=== PATIENT | female | born 1940 | race Caucasian/White ===

== ENCOUNTER 2017-01-18 08:05 | Outpatient (CLI) | payer MEDICARE, OTHER ==
[2017-01-18] VITALS (8 sets, daily range): BP systolic 111–178; BP diastolic 53–63
[~2017-01-18] VITALS: Ht 162.6 cm; Wt 45.4 kg
[~2017-01-18 08:05] MED LIST: DOCU50CA6 PO; GABA-586 PO; GLIM1TAB PO; LISI1TAB5 PO; OMEG1CAP2 PO; OMEP40CA5 PO; SIMV40TA3 PO; SITA100T PO; SUCR1TAB PO; TRAM-48 PO
[2017-01-18] MEDS ORDERED: CITA10TA4 PO (08:28)
[2017-01-18] MEDS ORDERED: ERGO2000 PO (08:28)
[2017-01-18] MEDS ORDERED: ALEN70TA5 PO (08:28)
[2017-01-18] MEDS ORDERED: ATORVASTATIN CA80 MG PO (08:28)
[2017-01-18] MEDS ORDERED: CETI10TA16 PO (08:28)
[2017-01-18] MEDS ORDERED: GUAI600T79 PO (08:28)
[2017-01-18] MEDS ORDERED: GLIM1TAB PO (08:28)
[2017-01-18] MEDS ORDERED: BUDE10.2 IH (08:28)
[2017-01-18] MEDS ORDERED: PROAIR RESPICL90 MCG IH (08:28)
[2017-01-18] MEDS ORDERED: BREO ELLIPTA 11 EACH IH (08:28)
[2017-01-18] MEDS ORDERED: HYDR10SY16 PO (08:28)
[2017-01-18] MEDS ORDERED: SITA100T PO (08:28)
[2017-01-18] MEDS ORDERED: CLOP75TA PO (08:28)
[2017-01-18 08:53] LABS: BASO # 0.1 x10^3/uL (0.0-0.2); BASO % 1 % (0-3); EOS % 3 % (0-3); HEMATOCRIT 37.8 % (36.0-47.0); HEMOGLOBIN 12.5 g/dL (12.0-15.5); LYMPH # 2.2 x10^3/uL (1.0-4.8); LYMPH % 33 % (24-48); MEAN CORPUSCULAR HEMOGLOBIN 32 pg (25-35); MEAN CORPUSCULAR HGB CONC 33 g/dL (31-37); MEAN CORPUSCULAR VOLUME 96 fL (79-100); MONO % 9 % (0-9); NEUT % 54 % (31-73); PLATELET COUNT 198 x10^3/uL (140-400); RED BLOOD COUNT 3.94 x10^6/uL (3.50-5.40); RED CELL DISTRIBUTION WIDTH 14.3 % (11.5-14.5); WHITE BLOOD COUNT 6.8 x10^3/uL (4.0-11.0)
[2017-01-18 09:37] LABS: INR 0.9 (0.8-1.1); PROTHROMBIN TIME PATIENT 11.9 SEC (11.7-14.0)
[2017-01-18] MEDS ORDERED: LIDOCAINE 1% / SOD BICARB 8.4% 20 ML VIAL. IJ ONE (10:00)
[2017-01-18] MEDS ORDERED: fentaNYL PF VIAL 100 MCG/2 ML VIAL IV ONE (10:00)
[2017-01-18] MEDS ORDERED: MIDAZOLAM HCL/PF 5 MG/5 ML VIAL. IV ONE (10:00)
--- NOTE | 2017-01-18 12:36 | RAD ---
CT-guided bone marrow biopsy. 01/18/2017 12:33 PM Indication: CTBXBM/MGUS ABD PAIN Discussion: The risks and benefits of the procedure, including but not limited to, bleeding and infection were discussed patient. Informed consent was obtained. The patient was brought to the CT scanner and placed in the prone position. A timeout procedure was performed. Rn Access CT imaging of the pelvis demonstrated left ilium amenable to bone marrow biopsy. The overlying soft tissues were prepped and draped using maximum sterile barrier technique. 1% lidocaine without epinephrine was administered for local anesthesia. Under intermittent CT guidance, an OncControl needle was advanced into the bone marrow of the left iliac crest. 2 Aspirates and 1 core biopsy samples were obtained. Samples were delivered to pathology was present at the time of procedure. The needle was removed and manual pressure held to achieve hemostasis. No immediate complications were identified. The procedure was performed under conscious sedation including continuous cardiopulmonary monitoring via dedicated sedation nurse. Sedation time: 15 minutes Impression: Successful CT-guided bone marrow biopsy of the left iliac crest . PQRS Compliance Statement: One or more of the following individualized dose reduction techniques were utilized for this examination: 1. Automated exposure control 2. Adjustment of the mA and/or kV according to patient size 3. Use of iterative reconstruction technique
== END 2017-01-18 11:35 | disposition home or self-care (01) ==
LOC: INTRAD 08:05
PROVIDERS: ATTEND Internal Medicine Hematology & Oncology
DX: E31.20 Multiple endocrine neoplasia [MEN] syndrome, unspecified (principal); Z79.01 Long term (current) use of anticoagulants; E78.00 Pure hypercholesterolemia, unspecified; I73.9 Peripheral vascular disease, unspecified; I10 Essential (primary) hypertension; J44.9 Chronic obstructive pulmonary disease, unspecified; K21.9 Gastro-esophageal reflux disease without esophagitis; F32.9 Major depressive disorder, single episode, unspecified; F17.200 Nicotine dependence, unspecified, uncomplicated; E11.9 Type 2 diabetes mellitus without complications; Z88.8 Allergy status to other drugs, medicaments and biological substances; Z88.1 Allergy status to other antibiotic agents; Z91.041 Radiographic dye allergy status
CPT/HCPCS: 36415; 38221; 77012; 85025; 85610; 88184; 88185; 88237; G0364; J2250; J3010; 99152

== ENCOUNTER → 2017-01-19 | Outpatient (CLI) | payer MEDICARE, OTHER ==
[2017-01-18 11:10] VITALS: BP 129/63
[~2017-01-19] MED LIST changes: +ALEN70TA5 PO; +ATORVASTATIN CA80 MG PO; +BREO ELLIPTA 11 EACH IH; +BUDE10.2 IH; +CETI10TA16 PO; +CITA10TA4 PO; +CLOP75TA PO; +ERGO2000 PO; +GUAI600T79 PO; +HYDR10SY16 PO; +LIDOCAINE 1% / SOD BICARB 8.4% 20 ML VIAL. IJ ONE; +LIDOCAINE 1% Multi-Dose 20 ML VIAL. ONE; +PROAIR RESPICL90 MCG IH
--- NOTE | 2017-01-19 13:06 | RAD ---
Indication multiple myeloma. Axial images through the chest abdomen and pelvis were obtained. The study is limited. No IV or gastrointestinal contrast was administered. No prior CT imaging of the chest abdomen or pelvis is available. CT chest: Findings Changes of a right mastectomy are noted. There is coronary artery calcification. The thoracic aorta appears unremarkable. There is no significant hilar or mediastinal adenopathy. There is a opacity in the right upper lobe, probably reflecting scar, image 16 series 3. Follow-up imaging establishing stability should be considered. A dominant soft tissue mass in either lung or acute finding in the chest is not seen. CT abdomen and pelvis: Findings. The liver and spleen appear unremarkable. The gallbladder appears grossly normal. No adrenal anomaly is seen. There are low-density masses associated with the left kidney compatible with cysts. The pancreas appears unremarkable. There is no significant central or retroperitoneal adenopathy. In the pelvis no focal mass or inflammatory process is seen. IMPRESSION: No acute or definite significant finding seen in the chest, abdomen or pelvis. Parenchymal opacity in the right upper lobe. Follow-up imaging along the lines of the Fleischner criteria should be considered. Nodules detected incidentally at non-screening CT Nodule size (mm) less than or equal to 4 Low Risk patients- no follow-up needed High Risk patients- follow-up at 12 months and if no change, no further imaging needed. Nodule size > 4-6 mm Low risk patients- follow- up at 12 months and if no change, no further imaging needed High risk patients- initial follow-up CT at 6-12 months and then at 18-24 months if no change. Nodule Size > 6-8 mm Low risk patients- initial follow-up CT at 6-12 months and then at 18-24 months if no change. High risk patients- initial follow- up CT at 3-6 months and then at 9-12 months if no change, Nodule Size >8 mm Either low or high risk patients: Follow-up CT at around 3, 9 and [address], PET, and/or biopsy Note: newly detected indeterminate nodule in person 35 years of age or older. Low risk patients- minimal or absent history of smoking and/or other known risk factors. High risk patients- history of smoking or of other known risk factors. PQRS Compliance Statement: One or more of the following individualized dose reduction techniques were utilized for this examination: 1. Automated exposure control 2. Adjustment of the mA and/or kV according to patient size 3. Use of iterative reconstruction technique
--- NOTE | 2017-01-19 15:33 | RAD ---
Metastatic skeletal survey, 01/19/2017: History: Monoclonal gammopathy, weight loss, abdominal pain Multiple views of the bony skeleton were obtained in the following findings delineated: 1. An AP view of the chest reveals no fracture or destructive bony lesion. There is aortic calcific plaquing. A granulomatous type calcification is present in the left chest. Surgical clips are projected over the GE junction region. 2. AP and lateral views of the cervical, thoracic and lumbar spine reveal scattered marginal spurs. There are moderate degenerative changes involving the facet joints in the lower lumbar spine. There is a mild lumbar scoliosis. No fracture or destructive bony lesion is seen. 3. A lateral view of the skull demonstrates several small calvarial lucencies. 4. AP views of both humeri and forearms reveal no fracture or destructive bony lesion. 5. An AP view of the pelvis shows no abnormality. 6. AP views of both femurs and lower legs demonstrate no fracture or destructive bony lesion. IMPRESSION: 1. Several small calvarial lucencies suggesting early myelomatous lesions versus venous lakes. 2. No other evidence of multiple myeloma or metastatic disease. 3. Scattered degenerative changes.
== END | disposition home or self-care (01) ==
LOC: CT 08:51
PROVIDERS: ATTEND Internal Medicine Hematology & Oncology
DX: D47.2 Monoclonal gammopathy (principal); C90.00 Multiple myeloma not having achieved remission; R63.4 Abnormal weight loss; R91.8 Other nonspecific abnormal finding of lung field; Z87.891 Personal history of nicotine dependence
CPT/HCPCS: 71250; 74176; 77075

== ENCOUNTER → 2017-05-30 | Outpatient (CLI) | payer MEDICARE, OTHER | END | disposition home or self-care (01) | LOC: CT 09:22 | DX: N63.20 Unspecified lump in the left breast, unspecified quadrant (principal); I70.0 Atherosclerosis of aorta; N28.1 Cyst of kidney, acquired; K86.1 Other chronic pancreatitis; Z90.11 Acquired absence of right breast and nipple | CPT/HCPCS: 71250 ==

== ENCOUNTER → 2017-06-09 | Outpatient (CLI) | payer MEDICARE, OTHER ==
[2017-06-09] MEDS: GADOBUTROL 7.5 MMOL/7.5 ML VIAL IV (11:08)
== END | disposition home or self-care (01) ==
LOC: MRI 09:41
DX: M48.04 Spinal stenosis, thoracic region (principal); Z85.3 Personal history of malignant neoplasm of breast
CPT/HCPCS: 72157; A9585

== ENCOUNTER → 2017-07-10 | Outpatient (CLI) | payer MEDICARE, OTHER | END | disposition home or self-care (01) | LOC: US 08:49 | DX: N63.31 Unspecified lump in axillary tail of the right breast (principal); D76.3 Other histiocytosis syndromes; Z90.710 Acquired absence of both cervix and uterus; Z98.890 Other specified postprocedural states; I10 Essential (primary) hypertension; F17.200 Nicotine dependence, unspecified, uncomplicated; Z91.041 Radiographic dye allergy status | CPT/HCPCS: 19081; 38505; 76942; 88305 ==

== ENCOUNTER → 2017-12-29 | Outpatient (CLI) | payer MEDICARE, OTHER ==
[2017-01-18 11:10] VITALS: BP 129/63
[~2017-12-29] MED LIST changes: -LIDOCAINE 1% / SOD BICARB 8.4% 20 ML VIAL. IJ ONE; -LIDOCAINE 1% Multi-Dose 20 ML VIAL. ONE
--- NOTE | 2017-12-29 14:44 | RAD ---
MRI of the thoracic spine without contrast 12/29/2017 CLINICAL HISTORY: Intradural mass seen at T10. Frequent falls. TECHNIQUE: Unenhanced T1-weighted, T2-weighted and inversion recovery sagittal and T1-weighted and T2-weighted axial images of the thoracic spine were obtained. FINDINGS: Comparison study is dated 06/09/2017. Very mild S-shaped curvature of the thoracolumbar spine is seen. Degenerative signal changes are seen involving all of the disks of the thoracic spine. Degenerative signal changes are seen within the marrow surrounding the disks of the mid and lower thoracic spine. No area of abnormal signal intensity is seen involving the thoracic spinal cord. An oval shaped intradural, extramedullary mass is seen within the left posterior lateral aspect of the central spinal canal at the T10 level. This measures 1.4 cm in greatest diameter. It is unchanged since the previous examination. This may represent a meningioma. No additional mass lesion is seen. No area of abnormal signal intensity is seen involving the thoracic spinal cord. Degenerative changes are seen involving the thoracic disc spaces consisting of minimal generalized disc bulges and degenerative changes involving the facet joints. The mass effect at T10 results in moderate to severe narrowing of the far left lateral recess, unchanged. No neural foraminal stenosis is noted. IMPRESSION: Stable MRI appearance of the 1.4 cm intradural extramedullary mass at T10. This likely represents a meningioma. No acute abnormality is seen. Electronically signed by: Christiano Falcon MD (12/29/2017 2:41 PM) [email or web address]
== END | disposition home or self-care (01) ==
LOC: MRI 10:41
PROVIDERS: ATTEND Neurological Surgery
DX: M48.8X4 Other specified spondylopathies, thoracic region (principal); M47.894 Other spondylosis, thoracic region; M43.8X4 Other specified deforming dorsopathies, thoracic region; I10 Essential (primary) hypertension; E11.9 Type 2 diabetes mellitus without complications; E78.00 Pure hypercholesterolemia, unspecified; M19.90 Unspecified osteoarthritis, unspecified site; J44.9 Chronic obstructive pulmonary disease, unspecified; K21.9 Gastro-esophageal reflux disease without esophagitis; Z87.891 Personal history of nicotine dependence
CPT/HCPCS: 72146

== ENCOUNTER → 2018-06-25 | Outpatient (CLI) | payer MEDICARE, OTHER ==
[2017-01-18 11:10] VITALS: BP 129/63
[~2018-06-25] MED LIST changes: -ALEN70TA5 PO; +ALEN70TA60 PO; -GABA-586 PO; +GABA300C18 PO
--- NOTE | 2018-06-25 11:40 | RAD ---
EXAM: Thoracic spine MRI without contrast. HISTORY: Pain. Mass. TECHNIQUE: Multiplanar, multisequence magnetic resonance imaging of the thoracic spine was performed without contrast. Contrast could not be administered due to renal insufficiency at the time of the exam. COMPARISON: 12/29/2017 and 06/09/2017. FINDINGS: There is no significant thoracic scoliosis or listhesis. There is minimal retrolisthesis of C5 on C6. The visualized vertebral bodies are normal in height. No suspicious osseous lesion is seen. There is no acute or subacute fracture. There is been no significant change in the heterogeneous hypointense T2 appearance of intradural extramedullary mass within the left aspect of the thoracic spinal canal at T10. This measures 1.4 cm in maximum dimension and demonstrates enhancement on the prior contrast-enhanced exam dated 06/09/2017. There is stable associated mild deformation of the left aspect of the thoracic spinal cord and effacement of the left lateral recess at this level. No thoracic spinal cord signal abnormality is seen. There is no thoracic disc protrusion. There is minimal to mild facet arthropathy at the mid lower thoracic vertebral levels, contributing to suspected minimal left foraminal stenosis at T10-T11. There is degenerative change involving the cervical spine, not formally assessed on this exam. There is an incidental tiny hiatal hernia. IMPRESSION: 1. No significant change in a 1.4 cm intradural extramedullary mass within the left aspect of the thoracic spinal canal at T10. This effaces the left lateral recess and slightly deforms the left aspect of the spinal cord at this level, without cord signal abnormality. This is better seen on the study dated 06/09/2017, given the presence of intravenous contrast. Contrast could not be administered for the current exam due to renal insufficiency. 2. Mild degenerative change involving the cervical spine, not formally assessed on this exam. 3. Minimal degenerative change involving the mid lower thoracic spine, stable in appearance. Electronically signed by: Felecia Leonard MD (06/25/2018 11:35 AM) [email or web address]
== END | disposition home or self-care (01) ==
LOC: MRI 09:42
PROVIDERS: ATTEND Internal Medicine Hematology & Oncology
DX: M54.6 Pain in thoracic spine (principal); M47.812 Spondylosis without myelopathy or radiculopathy, cervical region; G89.29 Other chronic pain; E78.00 Pure hypercholesterolemia, unspecified; I10 Essential (primary) hypertension; J44.9 Chronic obstructive pulmonary disease, unspecified; K21.9 Gastro-esophageal reflux disease without esophagitis; M19.90 Unspecified osteoarthritis, unspecified site; E11.9 Type 2 diabetes mellitus without complications; Z85.3 Personal history of malignant neoplasm of breast; Z87.891 Personal history of nicotine dependence
CPT/HCPCS: 72146

== ENCOUNTER 2018-12-03 07:29 | Inpatient (IN) | payer MEDICARE, OTHER ==
[2018-12-03] VITALS (12 sets, daily range): BP systolic 106–138; BP diastolic 42–83
[~2018-12-03] VITALS: Ht 162.6 cm; Wt 60.5 kg
[~2018-12-03 07:29] MED LIST changes: +ACET325T9 PO; +ACET500T68 PO; +ALEN70TA6 PO; -ALEN70TA60 PO; +ATOR10TA60 PO; +CALC250T PO; +CARV3.12 PO; +DICL100G18 TP; +FLUT9.9S NS; +FURO-68 PO; +FURO-69 PO; +HYDROmorphone 2 MG/ML VIAL IV PRN; +INSU100C4 SQ; +IPRA3AMP29 NEB; +IV RINGERS,LACTATED 1000ML 1,000 ML IV SCH; +LATA2.5D3 EACHEYE; +LIDO700A21 TP; +LIDOCAINE 1% PF 2 ML VIAL. ID PRN; +LISI2.5T PO; +LOPE2CAP88 PO; +MORPHINE SULFATE 2 MG/ML VIAL. IV PRN; +NAPR-514 PO; +OMEP20CA10 PO; +PHEN20SP MM; +PROCHLORPERAZINE 10 MG/2 ML VIAL. IV PRN; +TRAZ-118 PO; +fentaNYL PF VIAL 100 MCG/2 ML VIAL IV PRN
[2018-12-03] MEDS ORDERED: BUPIVAC MPF-EPI 0.5%-1:200000 30 ML VIAL. ONE (08:00)
[2018-12-03 08:03] LABS: BASO # 0.1 x10^3/uL (0.0-0.2); BASO % 1 % (0-3); EOS # 0.2 x10^3/uL (0.0-0.7); EOS % 2 % (0-3); HEMATOCRIT 34.2 % (36.0-47.0); HEMOGLOBIN 11.5 g/dL (12.0-15.5); LYMPH # 1.7 x10^3/uL (1.0-4.8); LYMPH % 23 % (24-48); MEAN CORPUSCULAR HEMOGLOBIN 31 pg (25-35); MEAN CORPUSCULAR HGB CONC 34 g/dL (31-37); MEAN CORPUSCULAR VOLUME 93 fL (79-100); MONO # 0.8 x10^3/uL (0.0-1.1); MONO % 11 % (0-9); NEUT # 4.6 x10^3/uL (1.8-7.7); NEUT % 63 % (31-73); PLATELET COUNT 221 x10^3/uL (140-400); RED CELL DISTRIBUTION WIDTH 13.1 % (11.5-14.5); WHITE BLOOD COUNT 7.3 x10^3/uL (4.0-11.0)
[2018-12-03 08:12] LABS: CALCIUM 9.3 mg/dL (8.5-10.1); CREATININE 1.8 mg/dL (0.6-1.0); GFR 27.1; POTASSIUM 4.7 mmol/L (3.5-5.1)
[2018-12-03] MEDS ORDERED: PROPOFOL 20 ML IV ONE (08:19)
[2018-12-03] MEDS ORDERED: DEXAMETHASONE SOD PHOS 4 MG/ML VIAL ONE (08:20)
[2018-12-03] MEDS ORDERED: LIDOCAINE 2% PF 5 ML VIAL. ONE (08:20)
[2018-12-03] MEDS ORDERED: ONDANSETRON PF 4 MG/2 ML VIAL. ONE (08:20)
[2018-12-03] MEDS ORDERED: ROCURONIUM 50 MG/5 ML VIAL. ONE (08:23)
[2018-12-03] MEDS: INSULIN LISPRO 100 UNIT/ML 3ML VIAL for OP,RR ONLY. SQ PRN ×2 (08:23→09:11)
[2018-12-03] MEDS ORDERED: fentaNYL PF VIAL 100 MCG/2 ML VIAL ONE (08:57)
[2018-12-03] MEDS ORDERED: PHENYLEPHRINE in 0.9% NACL PF 1 MG/10 ML SYRINGE. IV ONE (09:25)
[2018-12-03] MEDS ORDERED: KETAMINE HCL IN NACL, ISO-OSM 50 MG/5 ML SYRINGE ONE (09:26)
[2018-12-03] MEDS ORDERED: SEVOFLURANE 61 TO 120 MINUTES. IH ONE (09:26)
[2018-12-03] MEDS ORDERED: ePHEDrine PF IN SALINE 50 MG/10 ML SYRINGE. IV ONE (09:40)
[2018-12-03] MEDS ORDERED: GLYCOPYRROLATE 1 MG/5 ML VIAL. ONE (10:02)
[2018-12-03] MEDS ORDERED: NEOSTIGMINE METHYLSULFATE 5 MG/5 ML SYRINGE. ONE (10:02)
[2018-12-03] MEDS ORDERED: IV NORMAL SALINE 1000ML BAG 1,000 ML IV SCH (10:06)
[2018-12-03] MEDS: IV NORMAL SALINE 1000ML BAG 1,000 ML IV SCH (10:08)
[2018-12-03] MEDS ORDERED: HYDROmorphone 2 MG/ML VIAL IV PRN (10:15)
[2018-12-03] MEDS ORDERED: NALOXONE 0.4 MG/ML VIAL. IV PRN ×2 (10:15)
[2018-12-03] MEDS ORDERED: diphenhydrAMINE HCL 25 MG CAPSULE PO PRN (10:15)
[2018-12-03] MEDS ORDERED: 0.9 % SODIUM CHLORIDE 10 ML DISP.SYRIN. IV PRN ×2 (10:15)
[2018-12-03] MEDS ORDERED: ONDANSETRON PF 4 MG/2 ML VIAL. IV PRN (10:15)
--- NOTE | 2018-12-03 10:19 | PDOC ---
BRIEF OPERATIVE NOTE Date: Dec 03, 2018 Pre-Op Diagnosis incarcerated ventral incisional hernia Post-Op Diagnosis same Procedure Performed primary repair Surgeon Antonio Oncology Patient Navigator Yulisa WALLER Anesthesia Type: General Blood Loss 5cc IV Fluid 600cc Specimens Obtained none Findings incarcerated preperitoneal fat Complications none PEPE TALBERT MD Dec 03, 2018 10:19
--- NOTE | 2018-12-03 10:56 | OP ---
DATE OF SURGERY: 12/03/2018 PREOPERATIVE DIAGNOSIS: Incarcerated ventral incisional hernia. POSTOPERATIVE DIAGNOSIS: Incarcerated ventral incisional hernia. PROCEDURE: Primary repair. SURGEON: Lj Talbert MD BINDING NICKER: SRIDHAR Francisco ANESTHESIA: General endotracheal. BLOOD LOSS: 5. INTRAVENOUS: 600. INDICATIONS: The patient is a 78-year-old prison patient with a well-healed scar in the midline of her upper abdomen. There is tender and fullness in the incision that is not reducible. OPERATIVE REPORT: The patient brought to the operating suite, given a general endotracheal anesthetic, and the abdomen prepped and draped in usual sterile fashion. A 0.5% Marcaine was infiltrated along the incision line. Incision made and dissection carried down over 2 adjacent areas of protrusion of tissue from the abdominal cavity. This was combined into a single small defect and the contents were reduced. Incision closed with a running stitch of 0 PDS tied in the middle after a correct sponge count was obtained. Subcutaneous approximated with 3-0 Vicryl, skin closed with a subcuticular 4-0 Monocryl. Steri-Strips and sterile dressing applied. Abdominal binder placed. The patient awakened from her anesthetic and taken to the recovery room in satisfactory condition. LJ TALBERT MD DR: RIGOBERTO/shubham JOB#: [id number] / [id number]
--- NOTE | 2018-12-03 11:25 | NUR ---
Admission Note: Pt admitted to room 412 by bed from PACU, report received from Andrzej RN/Megan RN in PACU. Pt AOx4, on 2L O@, VS WNL. Started on Frequent VS per protocol. C/o pain 10/10, given lortab. Abdominal binder on, no drainage noted to dressing on abdomen. LS wheezy on inspiration. Skin CDI. Oriented to room, call light, unit routines. Pt caregiver present on admission. Dr. Cardenas notified of admission and consult
[2018-12-03] MEDS: HYDROcodone/APAP 5/325MG 1 TAB TABLET PO PRN (12:29)
[2018-12-03] MEDS: POTASSIUM CL 20MEQ-0.45% NACL 1,000 ML IV SCH (12:29)
[2018-12-03] MEDS ORDERED: ALBUTEROL SULFATE 2.5 MG/3 ML NEBU. NEB PRN (12:30)
[2018-12-03] MEDS ORDERED: DICLOFENAC SODIUM 1% TOPICAL GEL 100GM TUBE. TP PRN (12:30)
[2018-12-03] MEDS ORDERED: DEXTROSE 50% 25 GM / 50ML DISP.SYRIN. IV PRN (12:30)
[2018-12-03] MEDS ORDERED: MORPHINE SULFATE 4 MG/ML VIAL. IV PRN (16:00)
[2018-12-03] MEDS: CETIRIZINE HCL 10 MG TABLET. PO SCH (16:21)
[2018-12-03] MEDS: CITALOPRAM 10 MG TABLET. PO SCH (16:22)
[2018-12-03] MEDS: CARVEDILOL 3.125 MG TABLET. PO SCH (16:24)
[2018-12-03] MEDS ORDERED: INSULIN LISPRO 300 UNITS/3 ML INSULN.PEN. SQ SCH ×2 (17:00→23:00)
--- NOTE | 2018-12-03 17:00 | PDOC1 ---
History and Physical Date of Admission Date of Admission DATE: 12/03/18 TIME: 16:56 Source Source: Chart review, Patient History of Present Illness History of Present Illness Incarcerated ventral incisional hernia. Primary repair by Dr. Alvarez, today, GET, intubation, surg went well, I was consulted for med management, she has acute abd pain after surg, not better with percocet she has felt well recently Past Medical History Cardiovascular: HTN Endocrine: Diabetes Past Surgical History Past Surgical History: Other Family History Family History: Diabetes Social History Smoke: <1 pack per day ALCOHOL: none Drugs: None Current Medications Current Medications Current Medications Fentanyl Citrate (Fentanyl 2ml Vial) 25 mcg PRN Q5MIN PRN IV MILD PAIN 1-3 Last administered on 12/03/18at 10:52; Start 12/03/18 at 07:00; Stop 12/04/18 at 06:59 Fentanyl Citrate (Fentanyl 2ml Vial) 50 mcg PRN Q5MIN PRN IV MODERATE TO SEVERE PAIN; Start 12/03/18 at 07:00; Stop 12/04/18 at 06:59 Morphine Sulfate (Morphine Sulfate) 1 mg PRN Q10MIN PRN IV SEVERE PAIN 7-10; Start 12/03/18 at 07:00; Stop 12/04/18 at 06:59 Ringer's Solution 1,000 ml @ 30 mls/hr Q24H IV Last administered on 12/03/18at 08:08; Start 12/03/18 at 07:00; Stop 12/03/18 at 18:59 Lidocaine HCl (Xylocaine-Mpf 1% 2ml Vial) 2 ml PRN 1X PRN ID PRIOR TO IV START; Start 12/03/18 at 07:00; Stop 12/04/18 at 06:59 Hydromorphone HCl (Dilaudid) 0.5 mg PRN Q10MIN PRN IV SEV PAIN, Second choice; Start 12/03/18 at 07:00; Stop 12/04/18 at 06:59 Prochlorperazine Edisylate (Compazine) 5 mg PACU PRN PRN IV NAUSEA, MRX1; Start 12/03/18 at 07:00; Stop 12/04/18 at 06:59 Cefazolin Sodium 50 ml @ 100 mls/hr PREOP PRN PRN IV PREOP Last administered on 12/03/18at 09:20; Start 12/03/18 at 06:30; Stop 12/04/18 at 06:29 Insulin Human Lispro (HumaLOG VIAL for OP,RR ONLY) 0-10 units PRN Q1HR PRN SQ PER PROTOCOL Last administered on 12/03/18at 09:11; Start 12/03/18 at 08:30; Sto p 12/04/18 at 08:29 Propofol 20 ml @ As Directed STK-MED ONCE IV ; Start 12/03/18 at 08:19; Stop 12/03/18 at 08:20; Status DC Lidocaine HCl (Lidocaine Pf 2% Vial) 5 ml STK-MED ONCE .ROUTE ; Start 12/03/18 at 08:20; Stop 12/03/18 at 08:21; Status DC Ondansetron HCl (Zofran) 4 mg STK-MED ONCE .ROUTE ; Start 12/03/18 at 08:20; Stop 12/03/18 at 08:21; Status DC Dexamethasone Sodium Phosphate (Decadron) 4 mg STK-MED ONCE .ROUTE ; Start 12/03/18 at 08:20; Stop 12/03/18 at 08:21; Status DC Rocuronium Peel (Zemuron) 50 mg STK-MED ONCE .ROUTE ; Start 12/03/18 at 08:23; Stop 12/03/18 at 08:24; Status DC Fentanyl Citrate (Fentanyl 2ml Vial) 100 mcg STK-MED ONCE .ROUTE ; Start 12/03/18 at 08:57; Stop 12/03/18 at 08:58; Status DC Bupivacaine HCl/ Epinephrine Bitart (Sensorcain-Mpf Epi 0.5%-[id number]) 30 ml STK-MED ONCE .ROUTE Last administered on 12/03/18at 09:38; Start 12/03/18 at 08:00; Stop 12/03/18 at 09:00; Status DC Phenylephrine HCl (PHENYLEPHRINE in 0.9% NACL PF) 1 mg STK-MED ONCE IV ; Start 12/03/18 at 09:25; Stop 12/03/18 at 09:26; Status DC Sevoflurane (Ultane) 60 ml STK-MED ONCE IH ; Start 12/03/18 at 09:26; Stop 12/03/18 at 09:27; Status DC Ketamine HCl (Ketamine) 50 mg STK-MED ONCE .ROUTE ; Start 12/03/18 at 09:26; Stop 12/03/18 at 09:27; Status DC Ephedrine Sulfate (ePHEDrine PF IN SALINE SYRINGE) 50 mg STK-MED ONCE IV ; Start 12/03/18 at 09:40; Stop 12/03/18 at 09:41; Status DC Neostigmine Methylsulfate (Neostigmine Methylsulfate) 5 mg STK-MED ONCE .ROUTE ; Start 12/03/18 at 10:02; Stop 12/03/18 at 10:03; Status DC Glycopyrrolate (Robinul) 1 mg STK-MED ONCE .ROUTE ; Start 12/03/18 at 10:02; Stop 12/03/18 at 10:03; Status DC Sodium Chloride (Normal Saline Flush) 3 ml QSHIFT PRN IV AFTER MEDS AND BLOOD DRAWS; Start 12/03/18 at 10:15 Naloxone HCl (Narcan) 0.4 mg PRN Q2MIN PRN IV SEE INSTRUCTIONS; Start 12/03/18 at 10:15; Stop 12/03/18 at 10:15; Status DC Sodium Chloride 1,000 ml @ 25 mls/hr Q24H IV ; Start 12/03/18 at 10:06; Status UNV Diphenhydramine HCl (Benadryl) 25 mg PRN Q6HRS PRN PO ITCHING; Start 12/03/18 at 10:15 Enoxaparin Sodium (Lovenox 30mg Syringe) 30 mg QHS SQ ; Start 12/03/18 at 21:00 Sodium Chloride (Normal Saline Flush) 3 ml QSHIFT PRN IV AFTER MEDS AND BLOOD DRAWS; Start 12/03/18 at 10:15 Potassium Chloride/Sodium Chloride 1,000 ml @ 50 mls/hr Q20H IV Last administered on 12/03/18at 12:29; Start 12/03/18 at 11:00 Acetaminophen/ Hydrocodone Bitart (Lortab 5/325) 1 tab PRN Q4HRS PRN PO MILD PAIN 1-3 Last administered on 12/03/18at 12:29; Start 12/03/18 at 10:15 Naloxone HCl (Narcan) 0.4 mg PRN Q2MIN PRN IV SEE INSTRUCTIONS; Start 12/03/18 at 10:15 Sodium Chloride 1,000 ml @ 25 mls/hr Q24H IV ; Start 12/03/18 at 10:08 Hydromorphone HCl (Dilaudid) 0.4 mg PRN Q3HRS PRN IV PAIN; Start 12/03/18 at 10:15 Docusate Sodium (Colace) 100 mg BID PO ; Start 12/03/18 at 21:00 Ondansetron HCl (Zofran) 4 mg PRN Q6HRS PRN IV NAUESA, 1ST CHOICE; Start 12/03/18 at 10:15 Atorvastatin Calcium (Lipitor) 10 mg QHS PO ; Start 12/03/18 at 21:00 Carvedilol (Coreg) 3.125 mg BIDWMEALS PO Last administered on 12/03/18at 16:24; Start 12/03/18 at 17:00 Cetirizine HCl (ZyrTEC) 10 mg DAILY PO Last administered on 12/03/18at 16:21; S tart 12/03/18 at 13:00 Citalopram Hydrobromide (CeleXA) 15 mg DAILY PO Last administered on 12/03/18at 16:22; Start 12/03/18 at 13:00 Diclofenac Sodium (Voltaren) 1 aba PRN BID PRN TP PAIN; Start 12/03/18 at 12:30 Guaifenesin (Mucinex) 600 mg PRN Q8HRS PRN PO ALLERGIES; Start 12/03/18 at 12:30 Albuterol Sulfate (Ventolin Neb Soln) 3 mg PRN Q4HRS PRN NEB SHORTNESS OF BREATH; Start 12/03/18 at 12:30 Lidocaine (Lidoderm) 1 patch DAILY TP ; Start 12/04/18 at 09:00 Trazodone HCl (Desyrel) 25 mg QHS PO ; Start 12/03/18 at 21:00 Insulin Human Lispro (HumaLOG) 0-7 UNITS TIDWMEALS SQ ; Start 12/03/18 at 17:00 Dextrose (Dextrose 50%-Water Syringe) 12.5 gm PRN Q15MIN PRN IV SEE COMMENTS; Start 12/03/18 at 12:30 Morphine Sulfate (Morphine Sulfate) 4 mg PRN Q4HRS PRN IV PAIN Last administered on 12/03/18at 16:21; Start 12/03/18 at 16:00 Active Scripts Active Reported Voltaren (Diclofenac Sodium) 100 Gm Gel..gram. 1 Gm TP BID PRN Acetaminophen 500 Mg Tablet 1 Tab PO BID Trazodone Hcl 50 Mg Tablet 0.5 Tab PO QHS Omeprazole 20 Mg Capsule.dr 1 Cap PO DAILY Novolog (Insulin Aspart) 100 Unit/1 Ml Cartridge 100 Unit SQ QIDACHS Naproxen 500 Mg Tablet 1 Tab PO PRN Q8HRS PRN Lisinopril 2.5 Mg Tablet 1 Tab PO DAILY Lidocaine PATCH (Lidocaine) 1 Each Adh..patch 1 Each TP DAILY REMOVE AFTER 12 HOURS Latanoprost 2.5 Ml Drops 1 Drop EACHEYE QHS Lasix (Furosemide) 40 Mg Tablet 1 Tab PO QAM Lasix (Furosemide) 20 Mg Tablet 1 Tab PO QEVNG Duoneb 0.5-3(2.5) Mg/3 Ml (Albuterol/Ipratropium) 3 Ml Ampul.neb 3 Ml NEB PRN Q4HRS PRN Imodium A-D (Loperamide HCl) 2 Mg Capsule 2 Mg PO PRN PRN Flonase Allergy Relief (Fluticasone Propionate) 9.9 Ml [place].susp 1 Sprays NS PRN Q12HRS PRN Coreg (Carvedilol) 3.125 Mg Tablet 3.125 Mg PO BIDWMEALS Chloraseptic (Phenol) 20 Ml [place] 1 [place] MM PRN Q6HRS PRN Calcium Citrate 250 Mg Tablet 500 Mg PO DAILY Tylenol (Acetaminophen) 325 Mg Tablet 2 Tab PO PRN Q6HRS PRN Atorvastatin Calcium 10 Mg Tablet 1 Tab PO QHS Proair Respiclick (Albuterol Sulfate) 90 Mcg Aer.pow.ba 1 Puff IH PRN Q6HRS PRN Alendronate Sodium 70 Mg Tablet 1 Tab PO WEEKLY Citalopram Hbr (Citalopram Hydrobromide) 10 Mg Tablet 1.5 Tab PO DAILY Cetirizine Hcl 10 Mg Tablet 1 Tab PO DAILY Guaifenesin 600 Mg Tablet.er 600 Mg PO PRN Q8HRS PRN Clopidogrel (Clopidogrel Bisulfate) 75 Mg Tablet 1 Tab PO DAILY Glimepiride 1 Mg Tablet 1 Mg PO DAILY Gabapentin 400 Mg Capsule 400 Mg PO DAILY Simvastatin 40 Mg Tablet 40 Mg PO HS Omeprazole 20 Mg Capsule.dr 20 Mg PO DAILY Januvia (Sitagliptin Phosphate) 100 Mg Tablet 100 Mg PO DAILY Allergies Allergies: Coded Allergies: Iodinated Contrast- Oral and IV Dye (Verified Allergy, Intermediate, 01/18/17) aspirin (Verified Allergy, Intermediate, Nausea and Vomiting, 12/03/18) and rash metformin (Verified Allergy, Intermediate, Rash, 12/03/18) corn (Verified Adverse Reaction, Intermediate, diarrhea, 01/18/17) levofloxacin (Verified Adverse Reaction, Intermediate, Diarrhea, 01/18/17) Uncoded Allergies: green beans (Adverse Reaction, Unknown, diarrhea, 06/22/15) ROS General: No: Chills, Night Sweats, Fatigue, Malaise, Appetite, Other PSYCHOLOGICAL ROS: YES: Sleep disturbances; No: Anxiety, Behavioral Disorder, Concentration difficultie, Decreased libido, Depression, Disorientation, Hallucinations, Hostility, Obsessive thoughts Eyes: No Blurry vision, No Decreased vision, No Double vision, No Dry eyes, No Excessive tearing, No Eye Pain, No Itchy Eyes, No Loss of vision, No Photophobia, No Scotomata, No Uses contacts, No Uses glasses, No Other Respiratory: No: Cough, Hemoptysis, Orthopnea, Pleuritic Pain, Shortness of breath, SOB with excertion, Sputum Changes, Stridor, Tachypnea, Wheezing, Other Cardiovascular: No Chest Pain, No Palpitations, No Orthopnea, No Paroxysmal Noc. Dyspnea, No Edema, No Lt Headedness, No Other Gastrointestinal: Yes Nausea, Yes Abdominal Pain; No Vomiting, No Diarrhea, No Constipation, No Melena, No Hematochezia, No Other Genitourinary: No Dysuria, No Frequency, No Incontinence, No Hematuria, No R etention, No Discharge, No Urgency, No Pain, No Flank Pain, No Other, No , No , No , No , No , No , No Musculoskeletal: Yes Gait Disturbance; No Joint Pain, No Joint Stiffness, No Joint Swelling, No Muscle Pain, No Muscular Weakness, No Pain In:, No Swelling In:, No Other Neurological: No Behavorial Changes, No Bowel/Bladder ControlChng, No Confusion, No Dizziness, No Gait Disturbance, No Headaches, No Impaired Coord/balance, No Memory Loss, No Numbness/Tingling, No Seizures, No Speech Problems, No Tremors, No Visual Changes, No Weakness, No Other Skin: Yes Dry Skin; No Eczema, No Hair Changes, No Lumps, No Mole Changes, No Mottling, No Nail Changes, No Pruritus, No Rash, No Skin Lesion Changes, No Other, No Acne Physical Exam General: Alert, Cooperative, mild distress, moderate distress HEENT: Atraumatic, PERRLA, EOMI Lungs: Clear to auscultation, Normal air movement Heart: S1S2, no gallops Extremities: No clubbing, No edema Skin: No significant lesion Neuro: Normal gait, Normal tone, Sensation intact, Cranial nerves 3-12 NL Psych/Mental Status: Mental status NL, Mood NL Vitals Vitals Vital Signs Date Time Temp Pulse Resp B/P (MAP) Pulse Ox O2 Delivery O2 Flow Rate FiO2 12/03/18 16:24 75 128/92 12/03/18 15:41 97 Nasal Cannula 2.0 12/03/18 11:30 18 12/03/18 11:20 98.0 98.0 Labs Labs Laboratory Tests Test 12/03/18 07:55 12/03/18 09:06 12/03/18 10:26 White Blood Count 7.3 x10^3/uL (4.0-11.0) Red Blood Count 3.70 x10^6/uL (3.50-5.40) Hemoglobin 11.5 g/dL (12.0-15.5) Hematocrit 34.2 % (36.0-47.0) Mean Corpuscular Volume 93 fL (79-100) Mean Corpuscular Hemoglobin 31 pg (25-35) Mean Corpuscular Hemoglobin Concent 34 g/dL (31-37) Red Cell Distribution Width 13.1 % (11.5-14.5) Platelet Count 221 x10^3/uL (140-400) Neutrophils (%) (Auto) 63 % (31-73) Lymphocytes (%) (Auto) 23 % (24-48) Monocytes (%) (Auto) 11 % (0-9) Eosinophils (%) (Auto) 2 % (0-3) Basophils (%) (Auto) 1 % (0-3) Neutrophils # (Auto) 4.6 x10^3/uL (1.8-7.7) Lymphocytes # (Auto) 1.7 x10^3/uL (1.0-4.8) Monocytes # (Auto) 0.8 x10^3/uL (0.0-1.1) Eosinophils # (Auto) 0.2 x10^3/uL (0.0-0.7) Basophils # (Auto) 0.1 x10^3/uL (0.0-0.2) Sodium Level 138 mmol/L (136-145) Potassium Level 4.7 mmol/L (3.5-5.1) Chloride Level 99 mmol/L (98-107) Carbon Dioxide Level 32 mmol/L (21-32) Anion Gap 7 (6-14) Blood Urea Nitrogen 32 mg/dL (7-20) Creatinine 1.8 mg/dL (0.6-1.0) Estimated GFR (Cockcroft-Gault) 27.1 Glucose Level 191 mg/dL (70-99) Calcium Level 9.3 mg/dL (8.5-10.1) Albumin 4.0 g/dL (3.4-5.0) Glucose (Fingerstick) 143 mg/dL (70-99) 114 mg/dL (70-99) Laboratory Tests Test 12/03/18 07:55 12/03/18 09:06 12/03/18 10:26 White Blood Count 7.3 x10^3/uL (4.0-11.0) Red Blood Count 3.70 x10^6/uL (3.50-5.40) Hemoglobin 11.5 g/dL (12.0-15.5) Hematocrit 34.2 % (36.0-47.0) Mean Corpuscular Volume 93 fL (79-100) Mean Corpuscular Hemoglobin 31 pg (25-35) Mean Corpuscular Hemoglobin Concent 34 g/dL (31-37) Red Cell Distribution Width 13.1 % (11.5-14.5) Platelet Count 221 x10^3/uL (140-400) Neutrophils (%) (Auto) 63 % (31-73) Lymphocytes (%) (Auto) 23 % (24-48) Monocytes (%) (Auto) 11 % (0-9) Eosinophils (%) (Auto) 2 % (0-3) Basophils (%) (Auto) 1 % (0-3) Neutrophils # (Auto) 4.6 x10^3/uL (1.8-7.7) Lymphocytes # (Auto) 1.7 x10^3/uL (1.0-4.8) Monocytes # (Auto) 0.8 x10^3/uL (0.0-1.1) Eosinophils # (Auto) 0.2 x10^3/uL (0.0-0.7) Basophils # (Auto) 0.1 x10^3/uL (0.0-0.2) Sodium Level 138 mmol/L (136-145) Potassium Level 4.7 mmol/L (3.5-5.1) Chloride Level 99 mmol/L (98-107) Carbon Dioxide Level 32 mmol/L (21-32) Anion Gap 7 (6-14) Blood Urea Nitrogen 32 mg/dL (7-20) Creatinine 1.8 mg/dL (0.6-1.0) Estimated GFR (Cockcroft-Gault) 27.1 Glucose Level 191 mg/dL (70-99) Calcium Level 9.3 mg/dL (8.5-10.1) Albumin 4.0 g/dL (3.4-5.0) Glucose (Fingerstick) 143 mg/dL (70-99) 114 mg/dL (70-99) VTE Prophylaxis Ordered VTE Prophylaxis Devices: Yes VTE Pharmacological Prophylaxi: Yes Assessment/Plan Assessment/Plan Incarcerated ventral incisional hernia. s/p primary repair surg today admit to floor for pain control, cont home meds DM 2 CKD 3-4 depression htn insomnia HERNANDEZ HUTTON MD Dec 03, 2018 17:00
[2018-12-03] MEDS: DOCUSATE SODIUM 100 MG CAPSULE. PO SCH (20:41)
[2018-12-03] MEDS: ENOXAPARIN 30 MG/0.3 ML SYRINGE. SQ SCH (20:41)
[2018-12-03] MEDS: traZODone 50 MG TABLET. PO SCH (20:41)
[2018-12-03] MEDS: ATORVASTATIN CALCIUM 10 MG TABLET. PO SCH (20:41)
--- NOTE | 2018-12-03 21:46 | NUR ---
FSBS 325 at , order received from Dr. Velázquez for SSI
[2018-12-04 03:00] VITALS: BP 126/79
[2018-12-04 07:00] VITALS: BP 126/50
[2018-12-04] MEDS ORDERED: INSULIN LISPRO 300 UNITS/3 ML INSULN.PEN. SQ SCH (07:30)
[2018-12-04 07:44] LABS: BASO % 0 % (0-3); EOS % 0 % (0-3); HEMATOCRIT 31.4 % (36.0-47.0); HEMOGLOBIN 10.4 g/dL (12.0-15.5); LYMPH # 1.2 x10^3/uL (1.0-4.8); LYMPH % 10 % (24-48); MEAN CORPUSCULAR HEMOGLOBIN 31 pg (25-35); MEAN CORPUSCULAR HGB CONC 33 g/dL (31-37); MEAN CORPUSCULAR VOLUME 93 fL (79-100); MONO # 1.1 x10^3/uL (0.0-1.1); MONO % 9 % (0-9); NEUT % 81 % (31-73); PLATELET COUNT 210 x10^3/uL (140-400); RED BLOOD COUNT 3.37 x10^6/uL (3.50-5.40); WHITE BLOOD COUNT 12.3 x10^3/uL (4.0-11.0)
--- NOTE | 2018-12-04 07:45 | PDOC ---
PROGRESS NOTES Chief Complaint Chief Complaint A/P: Incarcerated ventral incisional hernia - s/p primary repair surgery 12/03/18 DM 2 CKD 3-4 Depression HTN Insomnia COPD on chronic home O2 History of Present Illness History of Present Illness Ms Vaughan is a 78yo F w/ PMHx DM2, HTN who was admitted for Incarcerated ventral incisional hernia repair on 12/03/18 She has acute abd pain after surg, not better with percocet she has felt well recently. Cr. improved from 1.8 to 1.6 today. Still no BM or flatus Vitals Vitals Vital Signs Date Time Temp Pulse Resp B/P (MAP) Pulse Ox O2 Delivery O2 Flow Rate FiO2 12/04/18 03:00 98.9 59 18 126/79 (95) 96 Nasal Cannula 3.0 98.9 Physical Exam General: Alert, Cooperative, mild distress, moderate distress Extremities: No clubbing, No edema Skin: No significant lesion Labs LABS Laboratory Tests Test 12/03/18 07:55 12/03/18 09:06 12/03/18 10:26 12/03/18 17:12 White Blood Count 7.3 x10^3/uL (4.0-11.0) Red Blood Count 3.70 x10^6/uL (3.50-5.40) Hemoglobin 11.5 g/dL (12.0-15.5) Hematocrit 34.2 % (36.0-47.0) Mean Corpuscular Volume 93 fL (79-100) Mean Corpuscular Hemoglobin 31 pg (25-35) Mean Corpuscular Hemoglobin Concent 34 g/dL (31-37) Red Cell Distribution Width 13.1 % (11.5-14.5) Platelet Count 221 x10^3/uL (140-400) Neutrophils (%) (Auto) 63 % (31-73) Lymphocytes (%) (Auto) 23 % (24-48) Monocytes (%) (Auto) 11 % (0-9) Eosinophils (%) (Auto) 2 % (0-3) Basophils (%) (Auto) 1 % (0-3) Neutrophils # (Auto) 4.6 x10^3/uL (1.8-7.7) Lymphocytes # (Auto) 1.7 x10^3/uL (1.0-4.8) Monocytes # (Auto) 0.8 x10^3/uL (0.0-1.1) Eosinophils # (Auto) 0.2 x10^3/uL (0.0-0.7) Basophils # (Auto) 0.1 x10^3/uL (0.0-0.2) Sodium Level 138 mmol/L (136-145) Potassium Level 4.7 mmol/L (3.5-5.1) Chloride Level 99 mmol/L (98-107) Carbon Dioxide Level 32 mmol/L (21-32) Anion Gap 7 (6-14) Blood Urea Nitrogen 32 mg/dL (7-20) Creatinine 1.8 mg/dL (0.6-1.0) Estimated GFR (Cockcroft-Gault) 27.1 Glucose Level 191 mg/dL (70-99) Calcium Level 9.3 mg/dL (8.5-10.1) Albumin 4.0 g/dL (3.4-5.0) Glucose (Fingerstick) 143 mg/dL (70-99) 114 mg/dL (70-99) 195 mg/dL (70-99) Test 12/03/18 20:40 Glucose (Fingerstick) 325 mg/dL (70-99) Comment Review of Relevant I have reviewed the following items regina (where applicable) has been applied. Labs Laboratory Tests Test 12/03/18 07:55 12/03/18 09:06 12/03/18 10:26 12/03/18 17:12 White Blood Count 7.3 x10^3/uL (4.0-11.0) Red Blood Count 3.70 x10^6/uL (3.50-5.40) Hemoglobin 11.5 g/dL (12.0-15.5) Hematocrit 34.2 % (36.0-47.0) Mean Corpuscular Volume 93 fL (79-100) Mean Corpuscular Hemoglobin 31 pg (25-35) Mean Corpuscular Hemoglobin Concent 34 g/dL (31-37) Red Cell Distribution Width 13.1 % (11.5-14.5) Platelet Count 221 x10^3/uL (140-400) Neutrophils (%) (Auto) 63 % (31-73) Lymphocytes (%) (Auto) 23 % (24-48) Monocytes (%) (Auto) 11 % (0-9) Eosinophils (%) (Auto) 2 % (0-3) Basophils (%) (Auto) 1 % (0-3) Neutrophils # (Auto) 4.6 x10^3/uL (1.8-7.7) Lymphocytes # (Auto) 1.7 x10^3/uL (1.0-4.8) Monocytes # (Auto) 0.8 x10^3/uL (0.0-1.1) Eosinophils # (Auto) 0.2 x10^3/uL (0.0-0.7) Basophils # (Auto) 0.1 x10^3/uL (0.0-0.2) Sodium Level 138 mmol/L (136-145) Potassium Level 4.7 mmol/L (3.5-5.1) Chloride Level 99 mmol/L (98-107) Carbon Dioxide Level 32 mmol/L (21-32) Anion Gap 7 (6-14) Blood Urea Nitrogen 32 mg/dL (7-20) Creatinine 1.8 mg/dL (0.6-1.0) Estimated GFR (Cockcroft-Gault) 27.1 Glucose Level 191 mg/dL (70-99) Calcium Level 9.3 mg/dL (8.5-10.1) Albumin 4.0 g/dL (3.4-5.0) Glucose (Fingerstick) 143 mg/dL (70-99) 114 mg/dL (70-99) 195 mg/dL (70-99) Test 12/03/18 20:40 Glucose (Fingerstick) 325 mg/dL (70-99) Laboratory Tests Test 12/03/18 07:55 12/03/18 09:06 12/03/18 10:26 12/03/18 17:12 White Blood Count 7.3 x10^3/uL (4.0-11.0) Red Blood Count 3.70 x10^6/uL (3.50-5.40) Hemoglobin 11.5 g/dL (12.0-15.5) Hematocrit 34.2 % (36.0-47.0) Mean Corpuscular Volume 93 fL (79-100) Mean Corpuscular Hemoglobin 31 pg (25-35) Mean Corpuscular Hemoglobin Concent 34 g/dL (31-37) Red Cell Distribution Width 13.1 % (11.5-14.5) Platelet Count 221 x10^3/uL (140-400) Neutrophils (%) (Auto) 63 % (31-73) Lymphocytes (%) (Auto) 23 % (24-48) Monocytes (%) (Auto) 11 % (0-9) Eosinophils (%) (Auto) 2 % (0-3) Basophils (%) (Auto) 1 % (0-3) Neutrophils # (Auto) 4.6 x10^3/uL (1.8-7.7) Lymphocytes # (Auto) 1.7 x10^3/uL (1.0-4.8) Monocytes # (Auto) 0.8 x10^3/uL (0.0-1.1) Eosinophils # (Auto) 0.2 x10^3/uL (0.0-0.7) Basophils # (Auto) 0.1 x10^3/uL (0.0-0.2) Sodium Level 138 mmol/L (136-145) Potassium Level 4.7 mmol/L (3.5-5.1) Chloride Level 99 mmol/L (98-107) Carbon Dioxide Level 32 mmol/L (21-32) Anion Gap 7 (6-14) Blood Urea Nitrogen 32 mg/dL (7-20) Creatinine 1.8 mg/dL (0.6-1.0) Estimated GFR (Cockcroft-Gault) 27.1 Glucose Level 191 mg/dL (70-99) Calcium Level 9.3 mg/dL (8.5-10.1) Albumin 4.0 g/dL (3.4-5.0) Glucose (Fingerstick) 143 mg/dL (70-99) 114 mg/dL (70-99) 195 mg/dL (70-99) Test 12/03/18 20:40 Glucose (Fingerstick) 325 mg/dL (70-99) Medications Current Medications Fentanyl Citrate (Fentanyl 2ml Vial) 25 mcg PRN Q5MIN PRN IV MILD PAIN 1-3 Last administered on 12/03/18at 10:52; Start 12/03/18 at 07:00; Stop 12/04/18 at 06:5 9; Status DC Fentanyl Citrate (Fentanyl 2ml Vial) 50 mcg PRN Q5MIN PRN IV MODERATE TO SEVERE PAIN; Start 12/03/18 at 07:00; Stop 12/04/18 at 06:59; Status DC Morphine Sulfate (Morphine Sulfate) 1 mg PRN Q10MIN PRN IV SEVERE PAIN 7-10; Start 12/03/18 at 07:00; Stop 12/04/18 at 06:59; Status DC Ringer's Solution 1,000 ml @ 30 mls/hr Q24H IV Last administered on 12/03/18at 08:08; Start 12/03/18 at 07:00; Stop 12/03/18 at 18:59; Status DC Lidocaine HCl (Xylocaine-Mpf 1% 2ml Vial) 2 ml PRN 1X PRN ID PRIOR TO IV START; Start 12/03/18 at 07:00; Stop 12/04/18 at 06:59; Status DC Hydromorphone HCl (Dilaudid) 0.5 mg PRN Q10MIN PRN IV SEV PAIN, Second choice; Start 12/03/18 at 07:00; Stop 12/04/18 at 06:59; Status DC Prochlorperazine Edisylate (Compazine) 5 mg PACU PRN PRN IV NAUSEA, MRX1; Start 12/03/18 at 07:00; Stop 12/04/18 at 06:59; Status DC Cefazolin Sodium 50 ml @ 100 mls/hr PREOP PRN PRN IV PREOP Last administered on 12/03/18at 09:20; Start 12/03/18 at 06:30; Stop 12/04/18 at 06:29; Status DC Insulin Human Lispro (HumaLOG VIAL for OP,RR ONLY) 0-10 units PRN Q1HR PRN SQ PER PROTOCOL Last administered on 12/03/18at 09:11; Start 12/03/18 at 08:30; Stop 12/04/18 at 08:29 Propofol 20 ml @ As Directed STK-MED ONCE IV ; Start 12/03/18 at 08:19; Stop 12/03/18 at 08:20; Status DC Lidocaine HCl (Lidocaine Pf 2% Vial) 5 ml STK-MED ONCE .ROUTE ; Start 12/03/18 at 08:20; Stop 12/03/18 at 08:21; Status DC Ondansetron HCl (Zofran) 4 mg STK-MED ONCE .ROUTE ; Start 12/03/18 at 08:20; Stop 12/03/18 at 08:21; Status DC Dexamethasone Sodium Phosphate (Decadron) 4 mg STK-MED ONCE .ROUTE ; Start 12/03/18 at 08:20; Stop 12/03/18 at 08:21; Status DC Rocuronium [place] (Zemuron) 50 mg STK-MED ONCE .ROUTE ; Start 12/03/18 at 08:23; Stop 12/03/18 at 08:24; Status DC Fentanyl Citrate (Fentanyl 2ml Vial) 100 mcg STK-MED ONCE .ROUTE ; Start 12/03/18 at 08:57; Stop 12/03/18 at 08:58; Status DC Bupivacaine HCl/ Epinephrine Bitart (Sensorcain-Mpf Epi 0.5%-1:[id number]) 30 ml STK-MED ONCE .ROUTE Last administered on 12/03/18at 09:38; Start 12/03/18 at 08:00; Stop 12/03/18 at 09:00; Status DC Phenylephrine HCl (PHENYLEPHRINE in 0.9% NACL PF) 1 mg STK-MED ONCE IV ; Start 12/03/18 at 09:25; Stop 12/03/18 at 09:26; Status DC Sevoflurane (Ultane) 60 ml STK-MED ONCE IH ; Start 12/03/18 at 09:26; Stop 12/03/18 at 09:27; Status DC Ketamine HCl (Ketamine) 50 mg STK-MED ONCE .ROUTE ; Start 12/03/18 at 09:26; Stop 12/03/18 at 09:27; Status DC Ephedrine Sulfate (ePHEDrine PF IN SALINE SYRINGE) 50 mg STK-MED ONCE IV ; Start 12/03/18 at 09:40; Stop 12/03/18 at 09:41; Status DC Neostigmine Methylsulfate (Neostigmine Methylsulfate) 5 mg STK-MED ONCE .ROUTE ; Start 12/03/18 at 10:02; Stop 12/03/18 at 10:03; Status DC Glycopyrrolate (Robinul) 1 mg STK-MED ONCE .ROUTE ; Start 12/03/18 at 10:02; S top 12/03/18 at 10:03; Status DC Sodium Chloride (Normal Saline Flush) 3 ml QSHIFT PRN IV AFTER MEDS AND BLOOD DRAWS; Start 12/03/18 at 10:15 Naloxone HCl (Narcan) 0.4 mg PRN Q2MIN PRN IV SEE INSTRUCTIONS; Start 12/03/18 at 10:15; Stop 12/03/18 at 10:15; Status DC Sodium Chloride 1,000 ml @ 25 mls/hr Q24H IV ; Start 12/03/18 at 10:06; Status UNV Diphenhydramine HCl (Benadryl) 25 mg PRN Q6HRS PRN PO ITCHING; Start 12/03/18 at 10:15 Enoxaparin Sodium (Lovenox 30mg Syringe) 30 mg QHS SQ Last administered on 12/03/18at 20:41; Start 12/03/18 at 21:00 Sodium Chloride (Normal Saline Flush) 3 ml QSHIFT PRN IV AFTER MEDS AND BLOOD DRAWS; Start 12/03/18 at 10:15 Potassium Chloride/Sodium Chloride 1,000 ml @ 50 mls/hr Q20H IV Last administered on 12/03/18at 12:29; Start 12/03/18 at 11:00 Acetaminophen/ Hydrocodone Bitart (Lortab 5/325) 1 tab PRN Q4HRS PRN PO MILD PAIN 1-3 Last administered on 12/03/18at 12:29; Start 12/03/18 at 10:15 Naloxone HCl (Narcan) 0.4 mg PRN Q2MIN PRN IV SEE INSTRUCTIONS; Start 12/03/18 at 10:15 Sodium Chloride 1,000 ml @ 25 mls/hr Q24H IV ; Start 12/03/18 at 10:08 Hydromorphone HCl (Dilaudid) 0.4 mg PRN Q3HRS PRN IV PAIN; Start 12/03/18 at 10:15 Docusate Sodium (Colace) 100 mg BID PO Last administered on 12/03/18at 20:41; Start 12/03/18 at 21:00 Ondansetron HCl (Zofran) 4 mg PRN Q6HRS PRN IV NAUESA, 1ST CHOICE; Start 12/03/18 at 10:15 Atorvastatin Calcium (Lipitor) 10 mg QHS PO Last administered on 12/03/18at 20:41; Start 12/03/18 at 21:00 Carvedilol (Coreg) 3.125 mg BIDWMEALS PO Last administered on 12/03/18at 16:24; Start 12/03/18 at 17:00 Cetirizine HCl (ZyrTEC) 10 mg DAILY PO Last administered on 12/03/18at 16:21; Start 12/03/18 at 13:00 Citalopram Hydrobromide (CeleXA) 15 mg DAILY PO Last administered on 12/03/18at 16:22; Start 12/03/18 at 13:00 Diclofenac Sodium (Voltaren) 1 aba PRN BID PRN TP PAIN; Start 12/03/18 at 12:30 Guaifenesin (Mucinex) 600 mg PRN Q8HRS PRN PO ALLERGIES; Start 12/03/18 at 12:30 Albuterol Sulfate (Ventolin Neb Soln) 3 mg PRN Q4HRS PRN NEB SHORTNESS OF BR EATH; Start 12/03/18 at 12:30 Lidocaine (Lidoderm) 1 patch DAILY TP ; Start 12/04/18 at 09:00 Trazodone HCl (Desyrel) 25 mg QHS PO Last administered on 12/03/18at 20:41; Start 12/03/18 at 21:00 Insulin Human Lispro (HumaLOG) 0-7 UNITS TIDWMEALS SQ Last administered on 12/03/18at 18:41; Start 12/03/18 at 17:00; Stop 12/03/18 at 21:46; Status DC Dextrose (Dextrose 50%-Water Syringe) 12.5 gm PRN Q15MIN PRN IV SEE COMMENTS; Start 12/03/18 at 12:30 Morphine Sulfate (Morphine Sulfate) 4 mg PRN Q4HRS PRN IV PAIN Last administered on 12/03/18at 16:21; Start 12/03/18 at 16:00 Clopidogrel Bisulfate (Plavix) 75 mg DAILY PO ; Start 12/04/18 at 09:00 Insulin Human Lispro (HumaLOG) 0-7 UNITS QIDACHS SQ ; Start 12/04/18 at 07:30; Stop 12/04/18 at 07:30; Status DC Insulin Human Lispro (HumaLOG) 0-7 UNITS QIDACHS SQ Last administered on 12/03/18at 22:28; Start 12/03/18 at 23:00; Stop 12/03/18 at 23:01; Status DC Active Scripts Active Reported Voltaren (Diclofenac Sodium) 100 Gm Gel..gram. 1 Gm TP BID PRN Acetaminophen 500 Mg Tablet 1 Tab PO BID Trazodone Hcl 50 Mg Tablet 0.5 Tab PO QHS Omeprazole 20 Mg Capsule.dr 1 Cap PO DAILY Novolog (Insulin Aspart) 100 Unit/1 Ml Cartridge 100 Unit SQ QIDACHS Naproxen 500 Mg Tablet 1 Tab PO PRN Q8HRS PRN Lisinopril 2.5 Mg Tablet 1 Tab PO DAILY Lidocaine PATCH (Lidocaine) 1 Each Adh..patch 1 Each TP DAILY REMOVE AFTER 12 HOURS Latanoprost 2.5 Ml Drops 1 Drop EACHEYE QHS Lasix (Furosemide) 40 Mg Tablet 1 Tab PO QAM Lasix (Furosemide) 20 Mg Tablet 1 Tab PO QEVNG Duoneb 0.5-3(2.5) Mg/3 Ml (Albuterol/Ipratropium) 3 Ml Ampul.neb 3 Ml NEB PRN Q4HRS PRN Imodium A-D (Loperamide HCl) 2 Mg Capsule 2 Mg PO PRN PRN Flonase Allergy Relief (Fluticasone Propionate) 9.9 Ml [place].susp 1 Sprays NS PRN Q12HRS PRN Coreg (Carvedilol) 3.125 Mg Tablet 3.125 Mg PO BIDWMEALS Chloraseptic (Phenol) 20 Ml [place] 1 [place] MM PRN Q6HRS PRN Calcium Citrate 250 Mg Tablet 500 Mg PO DAILY Tylenol (Acetaminophen) 325 Mg Tablet 2 Tab PO PRN Q6HRS PRN Atorvastatin Calcium 10 Mg Tablet 1 Tab PO QHS Proair Respiclick (Albuterol Sulfate) 90 Mcg Aer.pow.ba 1 Puff IH PRN Q6HRS PRN Alendronate Sodium 70 Mg Tablet 1 Tab PO WEEKLY Citalopram Hbr (Citalopram Hydrobromide) 10 Mg Tablet 1.5 Tab PO DAILY Cetirizine Hcl 10 Mg Tablet 1 Tab PO DAILY Guaifenesin 600 Mg Tablet.er 600 Mg PO PRN Q8HRS PRN Clopidogrel (Clopidogrel Bisulfate) 75 Mg Tablet 1 Tab PO DAILY Glimepiride 1 Mg Tablet 1 Mg PO DAILY Gabapentin 400 Mg Capsule 400 Mg PO DAILY Simvastatin 40 Mg Tablet 40 Mg PO HS Omeprazole 20 Mg Capsule.dr 20 Mg PO DAILY Januvia (Sitagliptin Phosphate) 100 Mg Tablet 100 Mg PO DAILY Vitals/I & O Vital Sign - Last 24 Hours 12/03/18 12/03/18 12/03/18 12/03/18 07:57 10:15 10:19 10:19 Temp 97 97.7 97.0 97.7 Pulse 67 72 75 Resp 18 13 13 B/P (MAP) 172/72 158/66 158/68 Pulse Ox 96 100 O2 Delivery Room Air Simple Mask Simple Mask Non-Rebreather O2 Flow Rate 10 10 10 12/03/18 12/03/18 12/03/18 12/03/18 10:50 10:52 11:05 11:20 Temp 97.7 98.0 97.7 98.0 Pulse 70 74 72 Resp 14 13 10 12 B/P (MAP) 169/70 144/64 150/68 Pulse Ox 100 100 99 97 O2 Delivery Nasal Cannula Simple Mask Nasal Cannula Nasal Cannula O2 Flow Rate 2 10.0 2 2 12/03/18 12/03/18 12/03/18 12/03/18 11:20 11:30 11:45 12:00 Pulse 70 74 68 Resp 18 B/P (MAP) 133/52 (79) 133/52 (79) 116/42 (66) Pulse Ox 97 97 96 O2 Delivery Nasal Cannula Nasal Cannula Nasal Cannula Nasal Cannula O2 Flow Rate 2 3.0 3.0 3.0 12/03/18 12/03/18 12/03/18 12/03/18 12:00 12:15 12:30 12:45 Pulse 74 75 66 B/P (MAP) 124/73 (90) 133/83 (100) 138/58 (84) Pulse Ox 98 96 98 O2 Delivery Nasal Cannula Nasal Cannula Nasal Cannula Nasal Cannula O2 Flow Rate 3.0 3.0 3.0 3.0 12/03/18 12/03/18 12/03/18 12/03/18 13:15 13:45 14:15 15:15 Pulse 74 64 57 62 B/P (MAP) 132/47 (75) 126/45 (72) 125/43 (70) 130/48 (75) Pulse Ox 97 98 99 98 O2 Delivery Nasal Cannula Nasal Cannula Nasal Cannula Nasal Cannula O2 Flow Rate 3.0 3.0 3.0 3.0 12/03/18 12/03/18 12/03/18 12/03/18 15:41 16:24 19:00 19:45 Temp 97.9 97.9 Pulse 75 85 Resp 18 B/P (MAP) 128/92 106/46 (66) Pulse Ox 97 95 O2 Delivery Nasal Cannula Nasal Cannula Nasal Cannula O2 Flow Rate 2.0 3.0 3.0 12/03/18 12/04/18 23:00 03:00 Temp 98.9 98.9 98.9 98.9 Pulse 56 59 Resp 18 18 B/P (MAP) 133/49 (77) 126/79 (95) Pulse Ox 97 96 O2 Delivery Nasal Cannula Nasal Cannula O2 Flow Rate 3.0 3.0 Intake and Output0 12/03/18 12/03/18 12/04/18 15:00 23:00 07:00 Intake Total 5 ml 200 ml 1063 ml Output Total 5 ml Balance 0 ml 200 ml 1063 ml GRACIELA LEWIS MD Dec 04, 2018 07:45
[2018-12-04 08:00] LABS: CALCIUM 8.5 mg/dL (8.5-10.1); CREATININE 1.6 mg/dL (0.6-1.0); GFR 31.1
--- NOTE | 2018-12-04 08:44 | PDOC ---
POLY VOGEL HIDE HANDLER 12/04/18 0844: SURGICAL PROGRESS NOTE Subjective tolerating diet pain managed urinating wears 02 at night Vital Signs Vital Signs Date Time Temp Pulse Resp B/P (MAP) Pulse Ox O2 Delivery O2 Flow Rate FiO2 12/04/18 03:00 98.9 59 18 126/79 (95) 96 Nasal Cannula 3.0 98.9 I&O Intake and Output 12/04/18 06:59 Intake Total 1268 ml Output Total 5 ml Balance 1263 ml Intake Oral 405 ml IV Total 863 ml Output Estimated Blood Loss 5 ml # Voids 1 General: Alert, Oriented X3, Cooperative, No acute distress Abdomen: Soft, Other (ND, dressing dry, incisional TTP) Labs Laboratory Tests Test 12/03/18 07:55 12/03/18 09:06 12/03/18 10:26 12/03/18 17:12 White Blood Count 7.3 x10^3/uL (4.0-11.0) Red Blood Count 3.70 x10^6/uL (3.50-5.40) Hemoglobin 11.5 g/dL (12.0-15.5) Hematocrit 34.2 % (36.0-47.0) Mean Corpuscular Volume 93 fL (79-100) Mean Corpuscular Hemoglobin 31 pg (25-35) Mean Corpuscular Hemoglobin Concent 34 g/dL (31-37) Red Cell Distribution Width 13.1 % (11.5-14.5) Platelet Count 221 x10^3/uL (140-400) Neutrophils (%) (Auto) 63 % (31-73) Lymphocytes (%) (Auto) 23 % (24-48) Monocytes (%) (Auto) 11 % (0-9) Eosinophils (%) (Auto) 2 % (0-3) Basophils (%) (Auto) 1 % (0-3) Neutrophils # (Auto) 4.6 x10^3/uL (1.8-7.7) Lymphocytes # (Auto) 1.7 x10^3/uL (1.0-4.8) Monocytes # (Auto) 0.8 x10^3/uL (0.0-1.1) Eosinophils # (Auto) 0.2 x10^3/uL (0.0-0.7) Basophils # (Auto) 0.1 x10^3/uL (0.0-0.2) Sodium Level 138 mmol/L (136-145) Potassium Level 4.7 mmol/L (3.5-5.1) Chloride Level 99 mmol/L (98-107) Carbon Dioxide Level 32 mmol/L (21-32) Anion Gap 7 (6-14) Blood Urea Nitrogen 32 mg/dL (7-20) Creatinine 1.8 mg/dL (0.6-1.0) Estimated GFR (Cockcroft-Gault) 27.1 Glucose Level 191 mg/dL (70-99) Calcium Level 9.3 mg/dL (8.5-10.1) Albumin 4.0 g/dL (3.4-5.0) Glucose (Fingerstick) 143 mg/dL (70-99) 114 mg/dL (70-99) 195 mg/dL (70-99) Test 12/03/18 20:40 12/04/18 07:30 12/04/18 07:40 Glucose (Fingerstick) 325 mg/dL (70-99) 209 mg/dL (70-99) White Blood Count 12.3 x10^3/uL (4.0-11.0) Red Blood Count 3.37 x10^6/uL (3.50-5.40) Hemoglobin 10.4 g/dL (12.0-15.5) Hematocrit 31.4 % (36.0-47.0) Mean Corpuscular Volume 93 fL (79-100) Mean Corpuscular Hemoglobin 31 pg (25-35) Mean Corpuscular Hemoglobin Concent 33 g/dL (31-37) Red Cell Distribution Width 13.0 % (11.5-14.5) Platelet Count 210 x10^3/uL (140-400) Neutrophils (%) (Auto) 81 % (31-73) Lymphocytes (%) (Auto) 10 % (24-48) Monocytes (%) (Auto) 9 % (0-9) Eosinophils (%) (Auto) 0 % (0-3) Basophils (%) (Auto) 0 % (0-3) Neutrophils # (Auto) 10.0 x10^3/uL (1.8-7.7) Lymphocytes # (Auto) 1.2 x10^3/uL (1.0-4.8) Monocytes # (Auto) 1.1 x10^3/uL (0.0-1.1) Eosinophils # (Auto) 0.0 x10^3/uL (0.0-0.7) Basophils # (Auto) 0.0 x10^3/uL (0.0-0.2) Sodium Level 136 mmol/L (136-145) Potassium Level 5.0 mmol/L (3.5-5.1) Chloride Level 100 mmol/L (98-107) Carbon Dioxide Level 30 mmol/L (21-32) Anion Gap 6 (6-14) Blood Urea Nitrogen 26 mg/dL (7-20) Creatinine 1.6 mg/dL (0.6-1.0) Estimated GFR (Cockcroft-Gault) 31.1 Glucose Level 200 mg/dL (70-99) Calcium Level 8.5 mg/dL (8.5-10.1) Laboratory Tests Test 12/03/18 09:06 12/03/18 10:26 12/03/18 17:12 12/03/18 20:40 Glucose (Fingerstick) 143 mg/dL (70-99) 114 mg/dL (70-99) 195 mg/dL (70-99) 325 mg/dL (70-99) Test 12/04/18 07:30 12/04/18 07:40 White Blood Count 12.3 x10^3/uL (4.0-11.0) Red Blood Count 3.37 x10^6/uL (3.50-5.40) Hemoglobin 10.4 g/dL (12.0-15.5) Hematocrit 31.4 % (36.0-47.0) Mean Corpuscular Volume 93 fL (79-100) Mean Corpuscular Hemoglobin 31 pg (25-35) Mean Corpuscular Hemoglobin Concent 33 g/dL (31-37) Red Cell Distribution Width 13.0 % (11.5-14.5) Platelet Count 210 x10^3/uL (140-400) Neutrophils (%) (Auto) 81 % (31-73) Lymphocytes (%) (Auto) 10 % (24-48) Monocytes (%) (Auto) 9 % (0-9) Eosinophils (%) (Auto) 0 % (0-3) Basophils (%) (Auto) 0 % (0-3) Neutrophils # (Auto) 10.0 x10^3/uL (1.8-7.7) Lymphocytes # (Auto) 1.2 x10^3/uL (1.0-4.8) Monocytes # (Auto) 1.1 x10^3/uL (0.0-1.1) Eosinophils # (Auto) 0.0 x10^3/uL (0.0-0.7) Basophils # (Auto) 0.0 x10^3/uL (0.0-0.2) Sodium Level 136 mmol/L (136-145) Potassium Level 5.0 mmol/L (3.5-5.1) Chloride Level 100 mmol/L (98-107) Carbon Dioxide Level 30 mmol/L (21-32) Anion Gap 6 (6-14) Blood Urea Nitrogen 26 mg/dL (7-20) Creatinine 1.6 mg/dL (0.6-1.0) Estimated GFR (Cockcroft-Gault) 31.1 Glucose Level 200 mg/dL (70-99) Calcium Level 8.5 mg/dL (8.5-10.1) Glucose (Fingerstick) 209 mg/dL (70-99) Assessment/Plan s/p VIH increase activity wean o2 IPC managing hyperglycemia PEPE TALBERT MD 12/04/18 1331: SURGICAL PROGRESS NOTE Assessment/Plan pt seen agree with above plans to return to same setting as pre op will as nursing home social worker to see POLY VOGEL APRN Dec 04, 2018 08:44 PEPE TABLERT MD Dec 04, 2018 13:31
[2018-12-04] MEDS: POTASSIUM CL 20MEQ-0.45% NACL 1,000 ML IV SCH (08:58)
[2018-12-04] MEDS: LIDOCAINE (700MG/PATCH) PATCH. TP SCH (09:00)
[2018-12-04] MEDS: CLOPIDOGREL BISULFATE 75 MG TABLET PO SCH (09:01)
[2018-12-04] MEDS: DOCUSATE SODIUM 100 MG CAPSULE. PO SCH ×2 (09:01→21:14)
[2018-12-04] MEDS: CETIRIZINE HCL 10 MG TABLET. PO SCH (09:01)
[2018-12-04] MEDS: CITALOPRAM 10 MG TABLET. PO SCH (09:01)
[2018-12-04] MEDS: HYDROcodone/APAP 5/325MG 1 TAB TABLET PO PRN ×2 (09:02→21:14)
[2018-12-04] MEDS: CARVEDILOL 3.125 MG TABLET. PO SCH ×2 (09:03→18:11)
[2018-12-04] MEDS: IV NORMAL SALINE 1000ML BAG 1,000 ML IV SCH (09:04)
[2018-12-04 11:00] VITALS: BP 134/41
[2018-12-04 15:00] VITALS: BP 123/45
[2018-12-04] MEDS: INSULIN LISPRO 300 UNITS/3 ML INSULN.PEN. SQ SCH ×2 (18:14→21:25)
[2018-12-04 19:25] VITALS: BP 122/37
[2018-12-04] MEDS: ATORVASTATIN CALCIUM 10 MG TABLET. PO SCH (21:14)
[2018-12-04] MEDS: traZODone 50 MG TABLET. PO SCH (21:15)
[2018-12-04] MEDS: ENOXAPARIN 30 MG/0.3 ML SYRINGE. SQ SCH (21:16)
[2018-12-04 23:08] VITALS: BP 103/35
[2018-12-05 01:12] LABS: HEMOGLOBIN A1C 7.3 % (4.8-5.6)
[2018-12-05 03:05] VITALS: BP 110/45
[2018-12-05 07:00] VITALS: BP 132/83
[2018-12-05] MEDS: INSULIN LISPRO 300 UNITS/3 ML INSULN.PEN. SQ SCH ×3 (07:30→16:30)
[2018-12-05] MEDS: CLOPIDOGREL BISULFATE 75 MG TABLET PO SCH (09:44)
[2018-12-05] MEDS: LIDOCAINE (700MG/PATCH) PATCH. TP SCH (09:44)
[2018-12-05] MEDS: CETIRIZINE HCL 10 MG TABLET. PO SCH (09:45)
[2018-12-05] MEDS: CARVEDILOL 3.125 MG TABLET. PO SCH ×2 (09:45→16:51)
[2018-12-05] MEDS: DOCUSATE SODIUM 100 MG CAPSULE. PO SCH (09:45)
[2018-12-05] MEDS: CITALOPRAM 10 MG TABLET. PO SCH (09:45)
[2018-12-05] MEDS: HYDROcodone/APAP 5/325MG 1 TAB TABLET PO PRN (09:49)
--- NOTE | 2018-12-05 10:24 | NUR ---
SS following for discharge planning. SS reviewed pt chart. Pt is from [facility], ; fax [phone]. SS contacted [facility] to verify pt's previous placement. [facility] confirmed that pt was a LTC resident from there facility and was able to return when medically stable for discharge.
[2018-12-05 11:00] VITALS: BP 116/46
--- NOTE | 2018-12-05 12:02 | DISCH ---
DISCHARGE INSTRUCTIONS Condition on Discharge Condition on Discharge: Stable Activity After Discharge Activity Instructions for Disc: Resume previous activity, Activity as tolerated Lifting Instructions after Dis: No heavy lifting, Do not lift >10 pounds Exercise Instruction after Dis: Progress as tolerated Driving Instructions after Dis: Do not drive Weight Bearing Status after Di: No restrictions Diet after Discharge Diet after Discharge: Diabetic No Calorie Level Wound Incision Care Wound/Incision Care: Ice to area for comfort Other wound/incision instructi: may shower, wear abdominal binder when active Follow-Up Follow up with: Antonio two weeks PEPE TALBERT MD Dec 05, 2018 12:02
--- NOTE | 2018-12-05 12:05 | PDOC3 ---
Discharge Summary Visit Information Date of Admission: Dec 03, 2018 Date of Discharge: Dec 05, 2018 Admitting Diagnosis Comment: ventral incisional hernia Final Diagnosis same Brief Hospital Course Allergies Allergies Coded Allergies Type Severity Reaction Last Updated Verified Iodinated Contrast- Oral and IV Dye Allergy Intermediate 01/18/17 Yes aspirin Allergy Intermediate Nausea and Vomiting 12/03/18 Yes metformin Allergy Intermediate Rash 12/03/18 Yes corn Adverse Reaction Intermediate diarrhea 01/18/17 Yes levofloxacin Adverse Reaction Intermediate Diarrhea 01/18/17 Yes Uncoded Allergies Type Severity Reaction Last Updated Verified green beans Adverse Reaction Unknown diarrhea 06/22/15 Vital Signs Vital Signs Date Time Temp Pulse Resp B/P (MAP) Pulse Ox O2 Delivery O2 Flow Rate FiO2 12/05/18 11:00 Room Air 12/05/18 09:45 68 132/83 12/05/18 08:00 2.0 12/05/18 07:00 98.5 14 97 98.5 Lab Results Laboratory Tests Test 12/03/18 17:12 12/03/18 20:40 12/04/18 07:30 12/04/18 07:40 Glucose (Fingerstick) 195 mg/dL (70-99) 325 mg/dL (70-99) 209 mg/dL (70-99) White Blood Count 12.3 x10^3/uL (4.0-11.0) Red Blood Count 3.37 x10^6/uL (3.50-5.40) Hemoglobin 10.4 g/dL (12.0-15.5) Hematocrit 31.4 % (36.0-47.0) Mean Corpuscular Volume 93 fL (79-100) Mean Corpuscular Hemoglobin 31 pg (25-35) Mean Corpuscular Hemoglobin Concent 33 g/dL (31-37) Red Cell Distribution Width 13.0 % (11.5-14.5) Platelet Count 210 x10^3/uL (140-400) Neutrophils (%) (Auto) 81 % (31-73) Lymphocytes (%) (Auto) 10 % (24-48) Monocytes (%) (Auto) 9 % (0-9) Eosinophils (%) (Auto) 0 % (0-3) Basophils (%) (Auto) 0 % (0-3) Neutrophils # (Auto) 10.0 x10^3/uL (1.8-7.7) Lymphocytes # (Auto) 1.2 x10^3/uL (1.0-4.8) Monocytes # (Auto) 1.1 x10^3/uL (0.0-1.1) Eosinophils # (Auto) 0.0 x10^3/uL (0.0-0.7) Basophils # (Auto) 0.0 x10^3/uL (0.0-0.2) Sodium Level 136 mmol/L (136-145) Potassium Level 5.0 mmol/L (3.5-5.1) Chloride Level 100 mmol/L (98-107) Carbon Dioxide Level 30 mmol/L (21-32) Anion Gap 6 (6-14) Blood Urea Nitrogen 26 mg/dL (7-20) Creatinine 1.6 mg/dL (0.6-1.0) Estimated GFR (Cockcroft-Gault) 31.1 Glucose Level 200 mg/dL (70-99) Hemoglobin A1c 7.3 % (4.8-5.6) Calcium Level 8.5 mg/dL (8.5-10.1) Test 12/04/18 11:50 12/04/18 16:52 12/04/18 21:16 12/05/18 07:25 Glucose (Fingerstick) 222 mg/dL (70-99) 176 mg/dL (70-99) 221 mg/dL (70-99) 121 mg/dL (70-99) Test 12/05/18 11:40 Glucose (Fingerstick) 240 mg/dL (70-99) Laboratory Tests Test 12/04/18 16:52 12/04/18 21:16 12/05/18 07:25 12/05/18 11:40 Glucose (Fingerstick) 176 mg/dL (70-99) 221 mg/dL (70-99) 121 mg/dL (70-99) 240 mg/dL (70-99) Brief Hospital Course Ms. Vaughan is a 78 old female diabetic who presented with painful fullness in her old upper abdominal midline incision. She had primary repair and did well post op Discharge Information Condition at Discharge: Improved Follow Up: As Needed Disposition/Orders: D/C to Another Facility Scheduled Acetaminophen (Acetaminophen) 500 Mg Tablet, 1 TAB PO BID for PAIN, #60 Ref 1 (Reported) Entered as Reported by: RAFI BRYAN on 11/30/18 1614 Last Action: HELD on 12/03/18 1708 by HERNANDEZ HUTTON Alendronate Sodium (Alendronate Sodium) 70 Mg Tablet, 1 TAB PO WEEKLY, #4 Ref 3 (Reported) Entered as Reported by: SAVANNAH HAYWOOD on 01/18/17827 Last Taken: Unknown Dose on 11/30/18 Last Action: HELD on 12/03/18 170 by HERNANDEZ HUTTON Atorvastatin Calcium (Atorvastatin Calcium) 10 Mg Tablet, 1 TAB PO QHS for HYPERLIPIDEMIA, #30 Ref 5 (Reported) Entered as Reported by: RAFI BRYAN on 11/30/18 1538 Last Taken: Unknown Dose on 12/02/18 0800 Last Action: Continued on 12/03/18 1223 by HERNANDEZ HUTTON Calcium Citrate (Calcium Citrate) 250 Mg Tablet, 500 MG PO DAILY for SUPPLEMENT, (Reported) Entered as Reported by: RAFI BRYAN on 11/30/18 1552 Last Taken: Unknown Dose on 12/02/18 Last Action: HELD on 12/03/18 170 by HERNANDEZ HUTTON Carvedilol (Coreg ) 3.125 Mg Tablet, 3.125 MG PO BIDWMEALS for CARDIAC, (Reported) Entered as Reported by: RAFI BRYAN on 11/30/18 1555 Last Taken: Unknown Dose on 12/02/18 2100 Last Action: Continued on 12/03/18 1223 by HERNANDEZ HUTTON Cetirizine Hcl (Cetirizine Hcl) 10 Mg Tablet, 1 TAB PO DAILY, #30 Ref 5 (Reported) Entered as Reported by: SAVANNAH HAYWOOD on 01/18/17827 Last Taken: Unknown Dose on 12/02/18 Last Action: Continued on 12/03/18 1223 by HERNANDEZ HUTTON Citalopram Hydrobromide (Citalopram Hbr) 10 Mg Tablet, 1.5 TAB PO DAILY for FOR DEPRESSION, #30 Ref 3 (Reported) Entered as Reported by: SAVANNAH HAYWOOD on 01/18/17827 Last Taken: Unknown Dose on 12/02/18 0700 Last Action: Continued on 12/03/18 1223 by HERNANDEZ HUTTON Clopidogrel Bisulfate (Clopidogrel) 75 Mg Tablet, 1 TAB PO DAILY, #90 Ref 1 (Reported) Entered as Reported by: SAVANNAH HAYWOOD on 01/18/17 0828 Last Taken: Unknown Dose on 11/28/18 Last Action: Continued on 12/03/18 1708 by HERNANDEZ HUTTON Furosemide (Lasix) 20 Mg Tablet, 1 TAB PO QEVNG for CHF, #90 Ref 1 (Reported) Entered as Reported by: RAFI BRYAN on 11/30/18 1601 Last Taken: Unknown Dose on 12/02/18 0800 Last Action: HELD on 12/03/18 17 07 by HERNANDEZ HUTTON Furosemide (Lasix) 40 Mg Tablet, 1 TAB PO QAM for CHF, #90 Ref 1 (Reported) Entered as Reported by: RAFI BRYAN on 11/30/18 1602 Last Taken: Unknown Dose on 12/02/18 0700 Last Action: HELD on 12/03/181706 by HERNANDEZ HUTTON Insulin Aspart (Novolog) 100 Unit/1 Ml Cartridge, 100 UNIT SQ QIDACHS for DIABETES/PER SLIDING SCALE, (Reported) Entered as Reported by: RAFI BRYAN on 11/30/18 160 Last Taken: Unknown Dose on 12/01/18 Last Action: HELD on 12/03/181707 by HERNANDEZ HUTTON Latanoprost (Latanoprost) 2.5 Ml Drops, 1 DROP EACHEYE QHS for GLAUCOMA, #7.5 Ref 3 (Reported) Entered as Reported by: RAFI BRYAN on 11/30/18 160 Last Taken: Unknown Dose on 12/02/182099 Last Action: HELD on 12/03/181706 by HERNANDEZ HUTTON Lidocaine (Lidocaine PATCH ) 1 Each Adh..patch, 1 EACH TP DAILY for FOR LOCAL PAIN, (Reported) REMOVE AFTER 12 HOURS Entered as Reported by: RAFI BRYAN on 11/30/18 160 Last Taken: Unknown Dose on 12/01/18 Last Action: Continued on 12/03/18 1223 by HERNANDEZ HUTTON Lisinopril (Lisinopril) 2.5 Mg Tablet, 1 TAB PO DAILY for HYPERTENSION, #30 Ref 5 (Reported) Entered as Reported by: RAFI BRYAN on 11/30/18 160 Last Taken: Unknown Dose on 12/02/182099 Last Action: HELD on 12/03/181706 by HERNANDEZ HUTTON Omeprazole (Omeprazole) 20 Mg Capsule.dr, 1 CAP PO DAILY for GERD, #30 Ref 5 (Reported) Entered as Reported by: RAFI BRYAN on 11/30/18 1609 Last Taken: Unknown Dose on 12/02/18 0800 Last Action: HELD on 12/03/18 170 by HERNANDEZ HUTTON Trazodone Hcl (Trazodone Hcl) 50 Mg Tablet, 0.5 TAB PO QHS for INSOMNIA, #30 Ref 1 (Reported) Entered as Reported by: RAFI BRYAN on 11/30/18 161 Last Taken: Unknown Dose on 12/02/18 0800 Last Action: Converted on 12/03/18 122 by HERNANDEZ HUTTON Scheduled PRN Acetaminophen (Tylenol) 325 Mg Tablet, 2 TAB PO PRN Q6HRS PRN for PAIN, #30 (Reported) Entered as Reported by: RAFI BRYAN on 11/30/18 1551 Last Action: HELD on 12/03/181706 by HERNANDEZ HUTTON Albuterol Sulfate (Proair Respiclick) 90 Mcg Aer.pow.ba, 1 PUFF IH PRN Q6HRS PRN for SHORTNESS OF BREATH, (Reported) Entered as Reported by: SAVANNAH HAYWOOD on 01/18/17827 Last Action: Reviewed on 11/30/181536 by RAFI BRYAN Diclofenac Sodium (Voltaren) 100 Gm Gel..gram., 1 GM TP BID PRN for PAIN, #100 Ref 2 (Reported) Entered as Reported by: RAFI BRYAN on 11/30/18 161 Last Action: Continued on 12/03/181222 by HERNANDEZ HUTTON Fluticasone Propionate (Flonase Allergy Relief) 9.9 Ml [place].susp, 1 SPRAYS NS PRN Q12HRS PRN for ALLERGIES, (Reported) Entered as Reported by: RAFI BRYAN on 11/30/18 155 Last Action: HELD on 12/03/181706 by HERNANDEZ HUTTON Guaifenesin (Guaifenesin) 600 Mg Tablet.er, 600 MG PO PRN Q8HRS PRN for ALLERGIES, (Reported) Entered as Reported by: SAVANNAH HAYWOOD on 01/18/17827 Last Action: Continued on 12/03/181222 by HERNANDEZ HUTTON Ipratropium/Albuterol Sulfate (Duoneb 0.5-3(2.5) Mg/3 Ml) 3 Ml Ampul.neb, 3 ML NEB PRN Q4HRS PRN for SHORTNESS OF BREATH, (Reported) Entered as Reported by: RAFI BRYAN on 11/30/181558 Last Action: Continued on 12/03/18 1223 by HERNANDEZ HUTTON Loperamide HCl (Imodium A-D) 2 Mg Capsule, 2 MG PO PRN PRN for DIARRHEA, (Reported) Entered as Reported by: RAFI BRYAN on 11/30/181557 Last Action: HELD on 12/03/181706 by HERNANDEZ HUTTON Naproxen (Naproxen) 500 Mg Tablet, 1 TAB PO PRN Q8HRS PRN for PAIN, #60 Ref 1 (Reported) Entered as Reported by: RAFI BRYAN on 11/30/18 160 Last Taken: Unknown Dose on 11/28/18 Last Action: HELD on 12/03/181707 by HERNANDEZ HUTTON Phenol (Chloraseptic) 20 Ml [place], 1 SPRAY MM PRN Q6HRS PRN for SORE THROAT, (Reported) Entered as Reported by: RAFI BRYAN on 11/30/181553 Last Action: HELD on 12/03/181706 by PEPE PETERSON MD Dec 05, 2018 12:05
--- NOTE | 2018-12-05 12:21 | SNU/HH DC ---
DISCHARGE ORDERS DISCHARGE INFORMATION: CONDITION ON DISCHARGE: Stable CODE STATUS: Code Status: Full JAIL: SNF STAY <30 DAYS: Yes HOSPICE: HOSPICE: No HOSPICE EVAL & TREAT: No LTAC: ADMIT TO LTAC: No POST DISCHARGE ORDERS: ACTIVITY ORDERS: Resume previous activity, Activity as tolerated WEIGHT BEARING STATUS: No restrictions DIET AFTER DISCHARGE: ADA WOUND/INCISION CARE: Ice to area for comfort OTHER WOUND INSTRUCTIONS: may shower, wear abdominal binder when active FOLLOW-UP: PHYSICIAN FOLLOW-UP: Antonio two weeks TREATMENT/EQUIPMENT ORDERS: Physical Therapy For: Evalulation/Treatment Occupational Therapy For: Evaluation/Treatment DISCHARGE MEDICATIONS: Home Meds Reported Medications Diclofenac Sodium (VOLTAREN) 100 Gm Gel..gram., 1 GM TP BID PRN for PAIN, #100 GM 2 Refills 11/30/18 Acetaminophen (ACETAMINOPHEN) 500 Mg Tablet, 1 TAB PO BID for PAIN, #60 TAB 1 Refill 11/30/18 Trazodone Hcl (TRAZODONE HCL) 50 Mg Tablet, 0.5 TAB PO QHS for INSOMNIA, #30 TAB 1 Refill 11/30/18 Omeprazole (OMEPRAZOLE) 20 Mg Capsule.dr, 1 CAP PO DAILY for GERD, #30 CAP 5 Refills 11/30/18 Insulin Aspart (NOVOLOG) 100 Unit/1 Ml Cartridge, 100 UNIT SQ QIDACHS for DIABETES/PER SLIDING SCALE, EACH 11/30/18 Naproxen (NAPROXEN) 500 Mg Tablet, 1 TAB PO PRN Q8HRS PRN for PAIN, #60 TAB 1 Refill 11/30/18 Lisinopril (LISINOPRIL) 2.5 Mg Tablet, 1 TAB PO DAILY for HYPERTENSION, #30 TAB 5 Refills 11/30/18 Lidocaine (Lidocaine PATCH ) 1 Each Adh..patch, 1 EACH TP DAILY for FOR LOCAL PAIN, PATCH REMOVE AFTER 12 HOURS 11/30/18 Latanoprost (LATANOPROST) 2.5 Ml Drops, 1 DROP EACHEYE QHS for GLAUCOMA, #7.5 ML 3 Refills 11/30/18 Furosemide (LASIX) 40 Mg Tablet, 1 TAB PO QAM for CHF, #90 TAB 1 Refill 11/30/18 Furosemide (LASIX) 20 Mg Tablet, 1 TAB PO QEVNG for CHF, #90 TAB 1 Refill 11/30/18 Ipratropium/Albuterol Sulfate (DUONEB 0.5-3(2.5) MG/3 ML) 3 Ml Ampul.neb, 3 ML NEB PRN Q4HRS PRN for SHORTNESS OF BREATH, EACH 11/30/18 Loperamide HCl (Imodium A-D) 2 Mg Capsule, 2 MG PO PRN PRN for DIARRHEA, CAP 11/30/18 Fluticasone Propionate (Flonase Allergy Relief) 9.9 Ml [place].susp, 1 SPRAYS NS PRN Q12HRS PRN for ALLERGIES, BOTTLE 11/30/18 Carvedilol (COREG ) 3.125 Mg Tablet, 3.125 MG PO BIDWMEALS for CARDIAC, TAB 11/30/18 Phenol (Chloraseptic) 20 Ml [place], 1 SPRAY MM PRN Q6HRS PRN for SORE THROAT, SPRAY 11/30/18 Calcium Citrate (CALCIUM CITRATE) 250 Mg Tablet, 500 MG PO DAILY for SUPPLEMENT, TAB 11/30/18 Acetaminophen (TYLENOL) 325 Mg Tablet, 2 TAB PO PRN Q6HRS PRN for PAIN, #30 TAB 11/30/18 Atorvastatin Calcium (ATORVASTATIN CALCIUM) 10 Mg Tablet, 1 TAB PO QHS for HYPERLIPIDEMIA, #30 TAB 5 Refills 11/30/18 Albuterol Sulfate (Proair Respiclick) 90 Mcg Aer.pow.ba, 1 PUFF IH PRN Q6HRS PRN for SHORTNESS OF BREATH, INHALER 01/18/17 Alendronate Sodium (ALENDRONATE SODIUM) 70 Mg Tablet, 1 TAB PO WEEKLY, #4 TAB 3 Refills 01/18/17 Citalopram Hydrobromide (CITALOPRAM HBR) 10 Mg Tablet, 1.5 TAB PO DAILY for FOR DEPRESSION, #30 TAB 3 Refills 01/18/17 Cetirizine Hcl (CETIRIZINE HCL) 10 Mg Tablet, 1 TAB PO DAILY, #30 TAB 5 Refills 01/18/17 Guaifenesin (GUAIFENESIN) 600 Mg Tablet.er, 600 MG PO PRN Q8HRS PRN for ALLERGIES, TAB.SR 01/18/17 Clopidogrel Bisulfate (CLOPIDOGREL) 75 Mg Tablet, 1 TAB PO DAILY, #90 TAB 1 Refill 01/18/17 ALICE LOREDO III DO Dec 05, 2018 12:21
--- NOTE | 2018-12-05 12:31 | PDOC ---
[employer] PROGRESS NOTE Chief Complaint Chief Complaint Incarcerated ventral incisional hernia - s/p primary repair surgery 12/03/18 DM 2 CKD 3-4 Depression HTN Insomnia COPD on chronic home O2 History of Present Illness History of Present Illness 12-05-2018 Pt seen and examined VSS GINA RN Reviewed chart Wound examined. CDI Ms Vaughan is a 78yo F w/ PMHx DM2, HTN who was admitted for Incarcerated ventral incisional hernia repair on 12/03/18 She has acute abd pain after surg, not better with percocet she has felt well recently. Cr. improved from 1.8 to 1.6 today. Still no BM or flatus Vitals/I&O Vitals/I&O: Vital Signs Date Time Temp Pulse Resp B/P (MAP) Pulse Ox O2 Delivery O2 Flow Rate FiO2 12/05/18 11:00 Room Air 12/05/18 09:45 68 132/83 12/05/18 08:00 2.0 12/05/18 07:00 98.5 14 97 98.5 I & O 12/04/18 12/04/18 12/05/18 14:59 22:59 06:59 Intake Total 347 ml 60 ml 360 ml Balance 347 ml 60 ml 360 ml Physical Exam General: Alert, Oriented X3, Cooperative, No acute distress Heart: Regular rate, Normal S1 Lungs: Clear Abdomen: Soft, Other (ND, dressing dry, incisional TTP) Extremities: No clubbing, No edema Skin: No rashes, No breakdown, No significant lesion Labs Labs: Laboratory Tests Test 12/04/18 16:52 12/04/18 21:16 12/05/18 07:25 12/05/18 11:40 Glucose (Fingerstick) 176 mg/dL (70-99) 221 mg/dL (70-99) 121 mg/dL (70-99) 240 mg/dL (70-99) Review of Systems Review of Systems: CO hunger CO weakness Assessment and Plan Assessmemt and Plan ncarcerated ventral incisional hernia - s/p primary repair surgery 12/03/18 DM 2 CKD 3-4 Depression HTN Insomnia COPD on chronic home O2 Plan Discharge FU PCP in 1 month Comment Review of Relevant I have reviewed the following items regina (where applicable) has been applied. Medications: Current Medications Medications (Trade) Dose Ordered Sig/Timo Route PRN Reason Start Time Stop Time Status Last Admin Dose Admin Insulin Human Lispro (HumaLOG) 0-7 UNITS QIDACHS SQ 12/04/18 16:30 12/05/18 11:54 ALICE LOREDO III DO Dec 05, 2018 12:31
[2018-12-05 15:00] VITALS: BP 152/43
[2018-12-05 16:51] VITALS: BP 152/43
--- NOTE | 2018-12-05 18:40 | NUR ---
pt is discharged to [facility] via wheelchair via transportation at 1735. pt is in stable condition. pt has all belongings with her. gave report to Jodi at the facility and she stated she had no further questions for me. discharge packet given to transportation with script inside. Jodi notified of F/U with dr jimenez in 2 weeks.
== END 2018-12-05 17:35 | disposition home or self-care (01) | DRG 354 ==
LOC: SURG 07:29 → 4 NORTH 10:30
PROVIDERS: ADMIT Surgery; ATTEND Surgery
PROC: 0WQF0ZZ Repair Abdominal Wall, Open Approach (ICD-10-PCS; principal; 2018-12-03 09:45)
DX: K43.0 Incisional hernia with obstruction, without gangrene (principal); N18.4 Chronic kidney disease, stage 4 (severe); E11.22 Type 2 diabetes mellitus with diabetic chronic kidney disease; I12.9 Hypertensive chronic kidney disease with stage 1 through stage 4 chronic kidney disease, or unspecified chronic kidney disease; E11.65 Type 2 diabetes mellitus with hyperglycemia; F32.9 Major depressive disorder, single episode, unspecified; J44.9 Chronic obstructive pulmonary disease, unspecified; G47.00 Insomnia, unspecified; F17.210 Nicotine dependence, cigarettes, uncomplicated; Z88.8 Allergy status to other drugs, medicaments and biological substances; Z88.6 Allergy status to analgesic agent; Z83.3 Family history of diabetes mellitus; Z99.81 Dependence on supplemental oxygen; Z91.041 Radiographic dye allergy status; Z88.1 Allergy status to other antibiotic agents; Z79.84 Long term (current) use of oral hypoglycemic drugs
CPT/HCPCS: 36415; 80048; 82040; 82962; 83036; 85025; A7015; J0171; J0690; J1100; J1650; J1815; J2001; J2270; J2370; J2405; J2704; J2710; J3010; J3490; J7120; 97110; 97116; 97535

== ENCOUNTER → 2018-12-27 | Outpatient (CLI) | payer MEDICARE, OTHER ==
[2018-12-05 16:51] VITALS: BP 152/43
[~2018-12-27] MED LIST changes: -HYDROmorphone 2 MG/ML VIAL IV PRN; -IV RINGERS,LACTATED 1000ML 1,000 ML IV SCH; -LIDOCAINE 1% PF 2 ML VIAL. ID PRN; -MORPHINE SULFATE 2 MG/ML VIAL. IV PRN; -PROCHLORPERAZINE 10 MG/2 ML VIAL. IV PRN; -fentaNYL PF VIAL 100 MCG/2 ML VIAL IV PRN
--- NOTE | 2018-12-27 15:13 | KCIC ---
MRI Thoracic Spine without contrast History: Thoracic meningioma, chronic back pain Technique: Multiplanar, multi sequential noncontrast MR imaging was performed of the thoracic spine. No contrast could be given due to patient's renal function. Comparison: June 25, 2018 Findings: There is some motion. Thoracic vertebral body stature and AP alignment are maintained. There is no significant marrow edema. Thoracic cord caliber is within normal limits. 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 There is a similar degree of [id number] narrowing of the far left lateral recess. No new mass is identified. There is no new focal posterior disc abnormality of the thoracic spine. There is facet degenerative change of inferior thoracic levels, mild narrowing of left T10-11 neural foramen as seen previously. Impression: 1. Size of intradural, extra medullary mass on the left at the T10 level is similar, may be seen with provided history of meningioma. No contrast could be given due to patient's renal function. No new abnormality is identified. Electronically signed by: Luis Parks MD (12/27/2018 3:10 PM) [id number]
== END | disposition home or self-care (01) ==
LOC: KCIC MRI 13:45
PROVIDERS: ATTEND Neurological Surgery
DX: D32.1 Benign neoplasm of spinal meninges (principal); M48.04 Spinal stenosis, thoracic region; G89.29 Other chronic pain
CPT/HCPCS: 72146

== ENCOUNTER 2019-11-02 02:23 | Inpatient (IN) | payer OTHER ==
[~2019-11-02] VITALS: Ht 162.6 cm; Wt 60.5 kg
[2019-11-02] VITALS (27 sets, daily range): BP systolic 101–219; BP diastolic 36–126
[~2019-11-02 02:23] MED LIST changes: -DICL100G18 TP; +DICL100G54 TP; +LISI1TAB19 PO; -LISI1TAB5 PO; +LOPE-101 PO; -LOPE2CAP88 PO; -OMEP20CA10 PO; +OMEP20CA16 PO; +OMEP40CA45 PO; -OMEP40CA5 PO; +SIMV40TA18 PO; -SIMV40TA3 PO
[2019-11-02] MEDS ORDERED: MORPHINE SULFATE 2 MG/ML VIAL. IV PRN ×2 (02:45→03:30)
[2019-11-02] MEDS ORDERED: MORPHINE SULFATE 4 MG/ML VIAL. IV PRN (02:45)
[2019-11-02] MEDS ORDERED: fentaNYL PF VIAL 100 MCG/2 ML VIAL IV PRN ×4 (02:45→03:30)
[2019-11-02] MEDS ORDERED: PROPOFOL 100 ML IV PRN (02:45)
[2019-11-02] MEDS ORDERED: MIDAZOLAM 100mg/100ml NS BAG 100 ML IV PRN (02:45)
[2019-11-02] MEDS ORDERED: diphenhydrAMINE 50 MG/ML VIAL IVP PRN (02:45)
[2019-11-02] MEDS ORDERED: PROPOFOL 100 ML IV ONE (02:49)
--- NOTE | 2019-11-02 03:00 | NUR ---
Patient admitted to room 112. patient placed on monitor. RT set up vent. Patient currently has propofol running. Femoral CL oozing from insertion site, pressure held- then pad placed, opsite , gauze, tape, and 1L bag of NS to keep pressure. BP SBP>200 and DBP>100. Dr. To called for orders, cardene gtt started. consults placed to pulmonology and neurology. Daughter Pearl called and updated.
--- NOTE | 2019-11-02 03:46 | RAD ---
EXAM: CHEST ONE VIEW. HISTORY: Intubated, respiratory failure. COMPARISON: 10/27/2019. FINDINGS: A frontal view of the chest is obtained. An endotracheal tube has its tip 2 cm above the kate. A nasogastric tube has its tip in the stomach. There are surgical clips at the hiatus and within the upper abdomen. There is a small left pleural effusion. There is mild pulmonary edema. Retrocardiac opacity indicates atelectasis or infiltrate. There is no pneumothorax. The heart is not enlarged. There are atherosclerotic calcifications of the aorta. IMPRESSION: 1. Small left pleural effusion. Retrocardiac atelectasis or infiltrate. 2. Mild pulmonary edema. Electronically signed by: Gail Lewis MD (11/02/2019 3:43 AM) [facility]
[2019-11-02] MEDS: PROPOFOL 100 ML IV PRN ×4 (04:03→21:33)
[2019-11-02] MEDS ORDERED: SITA100T PO (04:56)
[2019-11-02] MEDS ORDERED: PANT40TA77 PO (04:56)
[2019-11-02] MEDS ORDERED: HYDR-2761 PO (04:56)
[2019-11-02] MEDS ORDERED: GLIM1TAB7 PO (04:56)
[2019-11-02] MEDS ORDERED: LISI10TA2 PO (04:56)
--- NOTE | 2019-11-02 06:00 | NUR ---
Site still continuously oozing after multiple dressing changes, pressure held. Labs ran stat, including coags Loco LEARY called said once coags come back he will come take look to place extra stitch.
[2019-11-02 06:33] LABS: BASO % 0 % (0-3); EOS # 0.1 x10^3/uL (0.0-0.7); EOS % 1 % (0-3); HEMOGLOBIN 9.9 g/dL (12.0-15.5); LYMPH # 1.1 x10^3/uL (1.0-4.8); LYMPH % 10 % (24-48); MEAN CORPUSCULAR HEMOGLOBIN 30 pg (25-35); MEAN CORPUSCULAR HGB CONC 34 g/dL (31-37); MEAN CORPUSCULAR VOLUME 89 fL (79-100); MONO # 1.4 x10^3/uL (0.0-1.1); MONO % 12 % (0-9); NEUT # 9.3 x10^3/uL (1.8-7.7); NEUT % 78 % (31-73); PLATELET COUNT 291 x10^3/uL (140-400); RED BLOOD COUNT 3.27 x10^6/uL (3.50-5.40); RED CELL DISTRIBUTION WIDTH 15.7 % (11.5-14.5)
[2019-11-02 06:45] LABS: ALBUMIN 2.6 g/dL (3.4-5.0); ALBUMIN/GLOBULIN RATIO 0.8 (1.0-1.7); GFR 53.3; MAGNESIUM 1.3 mg/dL (1.8-2.4); TOTAL BILIRUBIN 0.6 mg/dL (0.2-1.0); TOTAL PROTEIN 5.8 g/dL (6.4-8.2)
[2019-11-02 06:48] LABS: POTASSIUM 2.6 mmol/L (3.5-5.1)
--- NOTE | 2019-11-02 07:10 | NUR ---
Loco LEARY came and placed 2 stitches near insertion site. Dr. To notifed about low K, low mag- orders received. Also notified about CL status.
[2019-11-02 07:12] LABS: PROTHROMBIN TIME PATIENT 13.7 SEC (11.7-14.0)
[2019-11-02] MEDS ORDERED: POTASSIUM BICARB 20 MEQ EFFERVESCENT TABLET. PEG ONE ×3 (07:30→09:00)
[2019-11-02] MEDS ORDERED: MAGNESIUM SULFATE 2GM 50 ML IV ONE (07:30)
[2019-11-02 08:14] LABS: BASE EXCESS ABG 0 mmol/L (-3-3); HCO3 ABG 22 mmol/L (21-28); PCO2 ABG 29 mmHg (35-46); PO2 ABG 84 mmHg (65-108); SAT O2 ABG 96 % (92-99)
[2019-11-02] MEDS: CHLORHEXIDINE 0.12% 15 ML MOUTHWASH. MM SCH ×2 (08:38→20:56)
[2019-11-02] MEDS: FAMOTIDINE 20 MG/2 ML VIAL IVP SCH (08:38)
[2019-11-02] MEDS ORDERED: FAMOTIDINE 20 MG/2 ML VIAL IVP SCH (09:00)
[2019-11-02] MEDS ORDERED: LIDOCAINE (700MG/PATCH) PATCH. TP PRN (09:00)
[2019-11-02] MEDS ORDERED: CHLORHEXIDINE 0.12% 15 ML MOUTHWASH. MM SCH (09:00)
--- NOTE | 2019-11-02 09:38 | CONS ---
DATE OF CONSULTATION: 11/02/2019 I was asked to see this 79-year-old lady for acute respiratory failure. HISTORY OF PRESENT ILLNESS: The patient is currently on the ventilator and sedated. He is not able to give me any information. All of the information was obtained from chart and nursing staff. Apparently she is a rehab center resident, she had seizure last night, was taken to [facility], was intubated. She is currently on the ventilator and is sedated on propofol. She is on Cardene drip secondary to hypertension. Her CT of head in [place] did not show acute abnormality. She has a small amount of ET tube secretion. She is on FiO2 40%, PEEP of 5. PAST MEDICAL HISTORY: Osteoporosis, hyperlipidemia, depression, gastroesophageal reflux disease, COPD, diabetes mellitus and hypertension. ALLERGIES: IODINE, ASPIRIN, CORN, GREEN BEANS, LEVOFLOXACIN, METFORMIN. MEDICATIONS: Currently, she is on potassium, magnesium, propofol, Cardene. SOCIAL HISTORY: Unable to obtain as the patient is on the ventilator and sedated. FAMILY HISTORY: Unable to obtain as the patient is on the ventilator and sedated. REVIEW OF SYSTEMS: Unable to obtain. The patient is on the ventilator and sedated. PHYSICAL EXAMINATION: GENERAL: This is a well-developed lady. VITAL SIGNS: Her O2 saturation on PEEP of 5 and FiO2 of 40% is 100%, respiratory rate 16, heart rate 81, blood pressure 158/62, temperature 97.8. HEENT: Normocephalic, atraumatic. She is on the ventilator, sedated. She appears comfortable. She is on Cardene drip. There is no paradoxical abdominal motion. There is no rash. She is sedated on the ventilator. LABORATORY DATA: I reviewed the following lab data: Chest x-ray shows ET tube is in good position. There is increased vascular marking, left effusion/atelectasis/infiltrate. Sodium 141, potassium 2.6, chloride 99, CO2 of 27, BUN 9, creatinine 1. Troponin 0.176. BNP 22,552, magnesium 1.3. WBC 12, hemoglobin 9.9. COVID-19 pending. IMPRESSION: 1. Acute respiratory failure, multifactorial in etiology. 2. New-onset seizure. 3. Acute diastolic congestive heart failure, rule out myocardial infarction, rule out pneumonia. 4. Abnormal chest x-ray. 5. Electrolyte abnormality. 6. Hypertensive urgency. 7. Diabetes mellitus. PLAN AND RECOMMENDATIONS: 1. Titrate FiO2 to keep O2 saturation 94%. 2. Continue ventilator support. Vent setting was reviewed. We will do ABG. Change vent setting per ABG. 3. Replace potassium and magnesium. 4. Monitor troponin. 5. Neurology consult for new-onset seizure. 6. Continue ventilator support until the patient is more stable. 7. Pepcid for stress ulcer prophylaxis. 8. SCDs for DVT prophylaxis. 9. The findings and recommendations were discussed with RN and RT. 10. Follow up COVID-19. 11. COVID-19 PUI. The patient under investigation. The patient is critically ill this critical care time 30 minutes without overlap. Thank you very much for allowing me to participate in care of this very nice lady. ADELIA OBRIEN M.D. DR: RODNEY/shubham JOB#: [id number] / [id number]
[2019-11-02] MEDS: cefTRIAXone IV Push 1 GM VIAL. IVP SCH (09:57)
[2019-11-02] MEDS ORDERED: DICLOFENAC SODIUM 1% TOPICAL GEL 100GM TUBE. TP PRN (10:15)
[2019-11-02] MEDS ORDERED: PHENOL ORAL SPRAY 177ML BOTTLE. MM PRN (10:15)
--- NOTE | 2019-11-02 10:27 | PDOC2 ---
CONSULT Date of Consult Date of Consult DATE: 11/02/19 TIME: 10:27 Reason for Consult Reason for Consult: Accelerated hypertension Referring Physician Referring Physician: Dr. To Identification/Chief Complaint Chief Complaint Seizure Source Source: Chart review, Patient History of Present Illness Reason for Visit: 79-year-old female presented initially to [facility] with new onset tonic-clonic seizure and acute respiratory failure secondary to aspiration pneumonia. She was intubated, sedated and transferred to [facility] for further evaluation. Her blood pressure was significantly elevated prompting cardiology consultation. Past Medical History Past Medical History Hyperlipidemia Hypertension Glaucoma COPD Chronic pain syndrome Chronic diastolic heart failure Cardiovascular: HTN Endocrine: Diabetes Past Surgical History Past Surgical History Mastectomy Past Surgical History: Other Family History Family History: Diabetes Social History ALCOHOL: none Drugs: None Current Medications Current Medications Current Medications Fentanyl Citrate 30 ml @ 0 mls/hr CONT PRN IV SEE PROTOCOL; Start 11/02/19 at 02:45; Status Cancel Propofol 100 ml @ 0 mls/hr CONT PRN IV SEE PROTOCOL; Start 11/02/19 at 02:45; Status Cancel Fentanyl Citrate (Fentanyl 2ml Vial) 25 mcg PRN Q1HR PRN IV SEE COMMENTS; Start 11/02/19 at 02:45; Status Cancel Fentanyl Citrate (Fentanyl 2ml Vial) 50 mcg PRN Q1HR PRN IV SEE COMMENTS; Start 11/02/19 at 02:45; Status Cancel Chlorhexidine Gluconate (Peridex) 15 ml BID MM ; Start 11/02/19 at 09:00; Status Cancel Morphine Sulfate (Morphine Sulfate) 2 mg PRN Q1HR PRN IV SEE COMMENTS.; Start 11/02/19 at 02:45; Status Cancel Morphine Sulfate (Morphine Sulfate) 4 mg PRN Q1HR PRN IV SEE COMMENTS.; Start 11/02/19 at 02:45; Status Cancel Midazolam HCl 100 ml @ 0 mls/hr CONT PRN IV SEE PROTOCOL; Start 11/02/19 at 02:45; Status Cancel Diphenhydramine HCl (Benadryl) 25 mg PRN Q15MIN PRN IVP EPS Symptoms; Start at 02:45; Status Cancel Nicardipine HCl 50 mg/Sodium Chloride 250 ml @ 25 mls/hr CONT PRN IV SEE I/O RECORD Last administered on 11/02/19at 09:56; Start 11/02/19 at 03:15 Propofol 100 ml @ As Directed STK-MED ONCE IV ; Start 11/02/19 at 02:49; Stop 11/02/19 at 03:22; Status DC Propofol 100 ml @ 0 mls/hr CONT PRN IV SEE PROTOCOL Last administered on 11/02/19at 07:39; Start 11/02/19 at 03:30 Fentanyl Citrate (Fentanyl 2ml Vial) 25 mcg PRN Q1HR PRN IV SEE COMMENTS; Start 11/02/19 at 03:30 Fentanyl Citrate (Fentanyl 2ml Vial) 50 mcg PRN Q1HR PRN IV SEE COMMENTS; Start 11/02/19 at 03:30 Chlorhexidine Gluconate (Peridex) 15 ml BID MM Last administered on 11/02/19at 08:38; Start 11/02/19 at 09:00 Famotidine (Pepcid Vial) 20 mg DAILY IVP Last administered on 11/02/19at 08:38; Start 11/02/19 at 09:00 Morphine Sulfate (Morphine Sulfate) 2 mg PRN Q1HR PRN IV SEE COMMENTS.; Start 11/02/19 at 03:30 Morphine Sulfate (Morphine Sulfate) 4 mg PRN Q1HR PRN IV SEE COMMENTS.; Start 11/02/19 at 03:30 Potassium Bicarbonate (Potassium Effervescent Tablet) 40 meq 1X ONCE PEG Last administered on 11/02/19at 08:38; Start 11/02/19 at 07:30; Stop 11/02/19 at 07:31; Status DC Potassium Bicarbonate (Potassium Effervescent Tablet) 40 meq 1X ONCE PEG Last administered on 11/02/19at 10:02; Start 11/02/19 at 08:00; Stop 11/02/19 at 08:01; Status DC Potassium Bicarbonate (Potassium Effervescent Tablet) 40 meq 1X ONCE PEG ; Start 11/02/19 at 09:00; Stop 11/02/19 at 09:01; Status DC Magnesium Sulfate 50 ml @ 25 mls/hr 1X ONCE IV Last administered on 11/02/19at 08:37; Start 11/02/19 at 07:30; Stop 11/02/19 at 09:29; Status DC Famotidine (Pepcid Vial) 20 mg DAILY IVP ; Start 11/02/19 at 09:00; Status UNV Ceftriaxone Sodium (Rocephin) 1 gm Q24H IVP Last administered on 11/02/19at 09:57; Start 11/02/19 at 09:00 Levetiracetam 1000 mg/Dextrose 110 ml @ 440 mls/hr Q12HR IV ; Start 11/02/19 at 11:00 Acetaminophen (Tylenol) 650 mg PRN Q6HRS PRN PO PAIN; Start 11/02/19 at 10:15 Atorvastatin Calcium (Lipitor) 10 mg QHS PO ; Start 11/02/19 at 21:00 Carvedilol (Coreg) 3.125 mg BIDWMEALS PO ; Start 11/02/19 at 11:00 Cetirizine HCl (ZyrTEC) 10 mg DAILY PO ; Start 11/02/19 at 11:00 Citalopram Hydrobromide (CeleXA) 15 mg DAILY PO ; Start 11/02/19 at 11:00 Clopidogrel Bisulfate (Plavix) 75 mg DAILY PO ; Start 11/02/19 at 11:00 Diclofenac Sodium (Voltaren) 1 carlos BID PRN TP PAIN; Start 11/02/19 at 10:15 Furosemide (Lasix) 20 mg QEVNG PO ; Start 11/02/19 at 18:00 Furosemide (Lasix) 40 mg QAM PO ; Start 11/02/19 at 11:00 Albuterol/ Ipratropium (Duoneb) 3 ml PRN Q4HRS PRN NEB SHORTNESS OF BREATH; Start 11/02/19 at 10:15; Status UNV Latanoprost (Xalatan) 1 drop QHS OU ; Start 11/02/19 at 21:00; Status UNV Lidocaine (Lidoderm) 1 patch DAILY TP ; Start 11/03/19 at 09:00; Status UNV Pantoprazole Sodium (Protonix) 20 mg DAILYAC PO ; Start 11/03/19 at 07:30; Status UNV Phenol (Chloraseptic) 1 spray PRN Q6HRS PRN MM SORE THROAT; Start 11/02/19 at 10:15; Status UNV Piperacillin Sod/ Tazobactam Sod 3.375 gm/Sodium Chloride 50 ml @ 100 mls/hr Q8H IV ; Start 11/02/19 at 10:30; Status UNV Vancomycin HCl (Vanco Per Pharmacy) 1 each PRN DAILY PRN MC SEE COMMENTS; Start 11/02/19 at 10:30; Status UNV Active Scripts Active Reported Januvia (Sitagliptin Phosphate) 100 Mg Tablet 1 Tab PO DAILY Pantoprazole Sodium (Pantoprazole Sodium) 40 Mg Tablet.dr 20 Mg PO DAILYAC Glimepiride 1 Mg Tablet 1 Tab PO DAILY Hydrocodone-Apap 5-325 (Hydrocodone Bit/Acetaminophen) 1 Tab Tablet 1 Tab PO PRN Q6HRS PRN Lisinopril 10 Mg Tablet 1 Tab PO DAILY Acetaminophen 500 Mg Tablet 1 Tab PO BID Trazodone Hcl 50 Mg Tablet 0.5 Tab PO QHS Omeprazole 20 Mg Capsule.dr 1 Cap PO DAILY Novolog (Insulin Aspart) 100 Unit/1 Ml Cartridge 100 Unit SQ QIDACHS Naproxen 500 Mg Tablet 1 Tab PO PRN Q8HRS PRN Lidocaine PATCH (Lidocaine) 1 Each Adh..patch 1 Each TP DAILY REMOVE AFTER 12 HOURS Latanoprost 2.5 Ml Drops 1 Drop EACHEYE QHS Duoneb 0.5-3(2.5) Mg/3 Ml (Albuterol/Ipratropium) 3 Ml Ampul.neb 3 Ml NEB PRN Q4HRS PRN Imodium A-D (Loperamide HCl) 2 Mg Capsule 2 Mg PO PRN PRN Flonase Allergy Relief (Fluticasone Propionate) 9.9 Ml [place].susp 1 Sprays NS PRN Q12HRS PRN Coreg (Carvedilol) 3.125 Mg Tablet 3.125 Mg PO BIDWMEALS Chloraseptic (Phenol) 20 Ml [place] 1 [place] MM PRN Q6HRS PRN Calcium Citrate 250 Mg Tablet 500 Mg PO DAILY Tylenol (Acetaminophen) 325 Mg Tablet 2 Tab PO PRN Q6HRS PRN Atorvastatin Calcium 10 Mg Tablet 1 Tab PO QHS Proair Respiclick (Albuterol Sulfate) 90 Mcg Aer.pow.ba 1 Puff IH PRN Q6HRS PRN Alendronate Sodium 70 Mg Tablet 1 Tab PO WEEKLY Citalopram Hbr (Citalopram Hydrobromide) 10 Mg Tablet 1.5 Tab PO DAILY Cetirizine Hcl 10 Mg Tablet 1 Tab PO DAILY Guaifenesin 600 Mg Tablet.er 600 Mg PO PRN Q8HRS PRN Clopidogrel (Clopidogrel Bisulfate) 75 Mg Tablet 1 Tab PO DAILY Novolog Flexpen (Insulin Aspart) 100 Unit/1 Ml Insuln.pen 0-3 Unit SQ QIDACHS PATIENT SLIDING SCALE. 70-249= 0 UNITS. 250-400= 3UNITS. BEFORE MEALS AND AT BEDTIME GIVE 3 UNITS IF BLOOD SUGAR 250 OR ABOVE. Diclofenac Sodium 100 Gm Gel..gram. 1 Carlos TP DAILY D3-50 (Cholecalciferol (Vitamin D3)) 50,000 Unit Capsule 50,000 Unit PO DAILY Trazodone Hcl 50 Mg Tablet 0.5 Tab PO QHS Reglan (Metoclopramide Hcl) 5 Mg Tablet 5 Mg PO DAILY Protonix (Pantoprazole Sodium) 20 Mg Tablet.dr 1 Tab PO DAILY Rougon 5-325 Tablet (Hydrocodone Bit/Acetaminophen) 1 Each Tablet 1 Tab PO Q4HRS Naproxen 500 Mg Tablet 1 Tab PO Q8HRS Lisinopril 2.5 Mg Tablet 1 Tab PO DAILY Lidocaine PATCH (Lidocaine) 1 Each Adh..patch 1 Each TP DAILY REMOVE AFTER 12 HOURS Lasix (Furosemide) 20 Mg Tablet 1 Tab PO DAILY 30 Days Duoneb 0.5-3(2.5) Mg/3 Ml (Albuterol/Ipratropium) 3 Ml Ampul.neb 3 Ml NEB QID Imodium A-D (Loperamide HCl) 2 Mg Capsule 2 Mg PO DAILY Guaifenesin 400 Mg Tablet 400 Mg PO Q8HRS Coreg (Carvedilol) 3.125 Mg Tablet 3.125 Mg PO BID Clopidogrel (Clopidogrel Bisulfate) 75 Mg Tablet 75 Mg PO DAILY Citalopram Hbr (Citalopram Hydrobromide) 10 Mg Tablet 10 Mg PO DAILY Atorvastatin Calcium 10 Mg Tablet 10 Mg PO DAILY Proair Hfa Inhaler (Albuterol Sulfate) 8.5 Gm Hfa.aer.ad 1 Puff INH PRN Q6HRS Acetaminophen 500 Mg Tablet 1 Tab PO PRN Q6HRS Glimepiride 1 Mg Tablet 1 Mg PO DAILY Simvastatin 40 Mg Tablet 40 Mg PO HS Omeprazole 20 Mg Capsule.dr 20 Mg PO DAILY Januvia (Sitagliptin Phosphate) 100 Mg Tablet 100 Mg PO DAILY Allergies Allergies: Coded Allergies: Iodinated Contrast Media (Verified Allergy, Intermediate, 01/18/17) aspirin (Verified Allergy, Intermediate, Nausea and Vomiting, 12/03/18) and rash metformin (Verified Allergy, Intermediate, Rash, 12/03/18) corn (Verified Adverse Reaction, Intermediate, diarrhea, 01/18/17) levofloxacin (Verified Adverse Reaction, Intermediate, Diarrhea, 01/18/17) Uncoded Allergies: green beans (Adverse Reaction, Unknown, diarrhea, 06/22/15) ROS Review of System Cannot be obtained since patient is intubated Physical Exam General: Other (Intubated and sedated) Lungs: Other (Decreased air entry bases) Heart: Regular rate Abdomen: Soft Extremities: No clubbing Vitals VITALS Vital Signs Date Time Temp Pulse Resp B/P (MAP) Pulse Ox O2 Delivery O2 Flow Rate FiO2 11/02/19 07:46 100 Ventilator 11/02/19 07:10 81 16 158/62 (94) 11/02/19 04:00 97.8 97.8 Labs Labs Laboratory Tests Test 11/02/19 06:00 11/02/19 09:00 White Blood Count 12.0 x10^3/uL (4.0-11.0) Red Blood Count 3.27 x10^6/uL (3.50-5.40) Hemoglobin 9.9 g/dL (12.0-15.5) Hematocrit 29.0 % (36.0-47.0) Mean Corpuscular Volume 89 fL (79-100) Mean Corpuscular Hemoglobin 30 pg (25-35) Mean Corpuscular Hemoglobin Concent 34 g/dL (31-37) Red Cell Distribution Width 15.7 % (11.5-14.5) Platelet Count 291 x10^3/uL (140-400) Neutrophils (%) (Auto) 78 % (31-73) Lymphocytes (%) (Auto) 10 % (24-48) Monocytes (%) (Auto) 12 % (0-9) Eosinophils (%) (Auto) 1 % (0-3) Basophils (%) (Auto) 0 % (0-3) Neutrophils # (Auto) 9.3 x10^3/uL (1.8-7.7) Lymphocytes # (Auto) 1.1 x10^3/uL (1.0-4.8) Monocytes # (Auto) 1.4 x10^3/uL (0.0-1.1) Eosinophils # (Auto) 0.1 x10^3/uL (0.0-0.7) Basophils # (Auto) 0.0 x10^3/uL (0.0-0.2) Prothrombin Time 13.7 SEC (11.7-14.0) Prothromb Time International Ratio 1.1 (0.8-1.1) Sodium Level 141 mmol/L (136-145) Potassium Level 2.6 mmol/L (3.5-5.1) Chloride Level 99 mmol/L (98-107) Carbon Dioxide Level 27 mmol/L (21-32) Anion Gap 15 (6-14) Blood Urea Nitrogen 9 mg/dL (7-20) Creatinine 1.0 mg/dL (0.6-1.0) Estimated GFR (Cockcroft-Gault) 53.3 BUN/Creatinine Ratio 9 (6-20) Glucose Level 97 mg/dL (70-99) Calcium Level 9.0 mg/dL (8.5-10.1) Magnesium Level 1.3 mg/dL (1.8-2.4) Total Bilirubin 0.6 mg/dL (0.2-1.0) Aspartate Amino Transf (AST/SGOT) 20 U/L (15-37) Alanine Aminotransferase (ALT/SGPT) 11 U/L (14-59) Alkaline Phosphatase 42 U/L (46-116) Troponin I Quantitative 0.176 ng/mL (0.000-0.055) VM-Uqm-T-Type Natriuretic Peptide 54257 pg/mL (0-449) Total Protein 5.8 g/dL (6.4-8.2) Albumin 2.6 g/dL (3.4-5.0) Albumin/Globulin Ratio 0.8 (1.0-1.7) Lactic Acid Level 1.0 mmol/L (0.4-2.0) Laboratory Tests Test 11/02/19 06:00 11/02/19 09:00 White Blood Count 12.0 x10^3/uL (4.0-11.0) Red Blood Count 3.27 x10^6/uL (3.50-5.40) Hemoglobin 9.9 g/dL (12.0-15.5) Hematocrit 29.0 % (36.0-47.0) Mean Corpuscular Volume 89 fL (79-100) Mean Corpuscular Hemoglobin 30 pg (25-35) Mean Corpuscular Hemoglobin Concent 34 g/dL (31-37) Red Cell Distribution Width 15.7 % (11.5-14.5) Platelet Count 291 x10^3/uL (140-400) Neutrophils (%) (Auto) 78 % (31-73) Lymphocytes (%) (Auto) 10 % (24-48) Monocytes (%) (Auto) 12 % (0-9) Eosinophils (%) (Auto) 1 % (0-3) Basophils (%) (Auto) 0 % (0-3) Neutrophils # (Auto) 9.3 x10^3/uL (1.8-7.7) Lymphocytes # (Auto) 1.1 x10^3/uL (1.0-4.8) Monocytes # (Auto) 1.4 x10^3/uL (0.0-1.1) Eosinophils # (Auto) 0.1 x10^3/uL (0.0-0.7) Basophils # (Auto) 0.0 x10^3/uL (0.0-0.2) Prothrombin Time 13.7 SEC (11.7-14.0) Prothromb Time International Ratio 1.1 (0.8-1.1) Sodium Level 141 mmol/L (136-145) Potassium Level 2.6 mmol/L (3.5-5.1) Chloride Level 99 mmol/L (98-107) Carbon Dioxide Level 27 mmol/L (21-32) Anion Gap 15 (6-14) Blood Urea Nitrogen 9 mg/dL (7-20) Creatinine 1.0 mg/dL (0.6-1.0) Estimated GFR (Cockcroft-Gault) 53.3 BUN/Creatinine Ratio 9 (6-20) Glucose Level 97 mg/dL (70-99) Calcium Level 9.0 mg/dL (8.5-10.1) Magnesium Level 1.3 mg/dL (1.8-2.4) Total Bilirubin 0.6 mg/dL (0.2-1.0) Aspartate Amino Transf (AST/SGOT) 20 U/L (15-37) Alanine Aminotransferase (ALT/SGPT) 11 U/L (14-59) Alkaline Phosphatase 42 U/L (46-116) Troponin I Quantitative 0.176 ng/mL (0.000-0.055) CW-Kzf-T-Type Natriuretic Peptide 70142 pg/mL (0-449) Total Protein 5.8 g/dL (6.4-8.2) Albumin 2.6 g/dL (3.4-5.0) Albumin/Globulin Ratio 0.8 (1.0-1.7) Lactic Acid Level 1.0 mmol/L (0.4-2.0) Assessment/Plan Assessment/Plan 1. Accelerated hypertension: Better controlled since admission. Resume home antihypertensives and titrate Cardene drip off as tolerated. Check 2D echo to assess LV systolic function. 2. New onset seizure disorder: Work-up and treatment per neurology team 3. Acute respiratory failure, multifactorial: s/p intubation, treat per pulmonary team. COVID test pending. Continue empiric antibiotics. 4. Acute on chronic diastolic heart failure: Continue diuretics 5. Slightly elevated troponin level, most of demand ischemia: Check 2D echo and plan ischemic evaluation as an outpatient. Thank you for your consultation. ASHELY SANCHES MD Nov 02, 2019 10:27
[2019-11-02] MEDS ORDERED: ALBUTEROL SULFATE 2.5 MG/3 ML NEBU. NEB PRN (10:30)
[2019-11-02 10:34] LABS: FIO2 ABG 40% vent
--- NOTE | 2019-11-02 10:41 | HP ---
ADMIT DATE: 11/02/2019 HISTORY OF PRESENT ILLNESS: The patient is an 79-year-old female patient, a resident at [facility] since 08/29/2017. Apparently she presented to Emergency Room of [facility] with seizures. She was nonverbal and unresponsive, no gag. She was intubated with the GlideScope. Shortly after arrival, she apparently was transferred from the retirement after prolonged tonic-clonic seizure. Per forest products teacher she required 7.5 mg of Versed IV that resolved tonic-clonic seizures. There was no change in her medication. Given prolonged tonic-clonic seizures that required intubation. The patient was transferred to [facility] ICU to continue with IV antibiotic for possible healthcare-associated pneumonia. Continue with Keppra for s seizure disorder and also consult the tube cleaning operator as well as the neurologist. PAST MEDICAL HISTORY: Significant for generalized muscle deconditioning, osteoporosis, dyspnea, hyperlipidemia, nutritional deficiency, glaucoma, chronic pain syndrome, COPD and cognitive communication. She is also known to have diastolic and systolic dysfunction, congestive heart failure, diabetes, essential hypertension and breast cancer with right mastectomy. She was basically intubated, mechanically ventilated and was given Lorazepam twice. Laboratory data showed that she has normochromic normocytic anemia. Her chemistry showed that her lactic acid was high at 4.6. Her prothrombin time, INR and aPTT normal. D-dimer was slightly elevated. Her arterial blood gases were within normal range. Urinalysis was unremarkable and toxic screen was positive for benzodiazepine. After intubation, she had a CT scan of the head which showed no acute intracranial hemorrhage, hypodensity within the right caudate may relate to artifact or ischemia and the radiologist recommended an MRI without and with contrast for further evaluation. Her chest x-ray showed endotracheal tube and nasogastric tube in expected position, suspected small left side pleural effusion, left lower lobe infiltrate, increased compared to prior study. Her cervical spine showed no fracture or subluxation, cervical vertebra was identified and CT scan and repeat chest x-ray showed no pneumothorax. PAST MEDICAL HISTORY: Significant for generalized muscle weakness, age-related osteoporosis, hyperlipidemia, gastroesophageal reflux disease, chronic pain syndrome, chronic obstructive pulmonary disease, cognitive communication deficit, abnormal weight loss, unspecified systolic and diastolic congestive heart failure; type 2 diabetes mellitus, essential hypertension. PAST SURGICAL HISTORY: Unobtainable. ALLERGIES: SHE IS ALLERGIC TO ASPIRIN, IODINE, METFORMIN, LEVAQUIN, AND GREEN BEANS. MEDICATIONS: She is on following medications: She is on Tylenol 650 mg every 6 hours as needed, amoxicillin and clavulanic acid 500/125 by mouth 2 times a day for bacterial infection for 6 days until finished. She was on citalopram hydrobromide 10 mg once a day, Plavix 75 mg once a day, Coreg 3.125 mg twice a day, glimepiride 1 mg once a day, ipratropium bromide and albuterol sulfate 0.5-2.5 mg 3 mL by nebulizer every 4 hours, Lidoderm patch 4% applied to lower back topically on for 12 hours and off for 12 hours, lisinopril 10 mg once a day, Cliff 5/325 one tablet every 6 hours, NovoLog as per insulin sliding scale before meals. She is on Protonix 40 mg once a day and sitagliptin phosphate tablets 100 mg 1 tablet once a day. She is on Voltaren gel 1% for diclofenac sodium applied 1 mg transdermally every 24 hours as needed and twice a day for chronic back pain. FAMILY HISTORY: Unobtainable. SOCIAL HISTORY: She is a resident at [facility] since 08/2016. No further information available. Apparently, her son-in-law is Eulogio Lee. PHYSICAL EXAMINATION: GENERAL: On arrival to the Emergency Room, she looked pale and was according to Dr. Alexander and nonverbal and unresponsive. No gag response and she was intubated shortly after arrival. VITAL SIGNS: Her heart rate on arrival was 116, blood pressure was unavailable, temperature was 98.2, respiratory rate was 10 and oxygen saturation was 96% on 15 liters. HEAD, EYES, EARS, NOSE AND THROAT: Showed normocephalic, atraumatic. NECK: Supple. CARDIAC: Normal first and second heart sounds. No gallop or murmur. CHEST: Shows central trachea, equal bilateral expansion air entry, vesicular sounds. No crepitation or rhonchi. ABDOMEN: Distended, soft, nontender. NEUROLOGIC: She was unresponsive, nonverbal. LABORATORY WORK: Her lab work on arrival showed a white cell count of 7400, hemoglobin 10, hematocrit 30, MCV 91, and platelet count 293,000. Her prothrombin time, INR and aPTT were normal. D-dimer was slightly elevated at 1.05. Her chemistry showed a serum sodium 141, potassium 3.5, chloride 102, bicarbonate 26, anion gap of 13, BUN 8, creatinine 1.2, estimated GFR was 43 mL per minute and glucose 145. Her lactic acid was 4.6, calcium was 9.1, magnesium was 1.6. Total bilirubin, AST, ALT, alkaline phosphatase were normal. Total protein was 5.8, albumin 2.8. Her first troponin was 0.075 and beta natriuretic peptide was 16,104 and her blood gases showed a pH of 7.44, pCO2 of 39, pO2 of 212, bicarbonate 26, and oxygen saturation 100% on FiO2 of 70%. Her CT scan of the head showed no acute intracranial hemorrhage, hypodensity within the right caudate may relate to an artifact or ischemia. An MRI was recommended with and without. Her chest x-ray showed the endotracheal tube and nasogastric tube within the expected position. Suspected small left pleural effusion and left lower lobe infiltrate, increased compared to the prior study. Her cervical spine showed no evidence of fracture or subluxation and her chest x-ray showed pneumothorax noted. She has left lower lobe atelectasis and/or infiltrates seen unchanged. There is a small left side pleural effusion. The osseous structures are unchanged. ASSESSMENT: The patient was basically an 79-year-old female patient, a resident at [facility], who presented with a new onset of tonic-clonic seizure. She probably has also aspiration pneumonia and acute respiratory failure. She was admitted. She was intubated and transferred to [facility]. I will continue mechanical ventilation. Her blood pressure was extremely high, we will start her on Cardene drip. I would consult the tube cleaning operator and neurologist. I will start her on Keppra 1000 mg IV twice a day and continue with Cardene drip. Apparently, her potassium was extremely low at 2.6. We will replenish that. Her beta natriuretic peptide was extremely high at 22,552 and the second troponin was even higher at 0.176. We will also consult the Cardiology. Her lactic acid has improved, most likely due to prolonged tonic-clonic seizures. FINESSE GEORGES MD DR: IRISH/shubham JOB#: [id number] / [id number]
[2019-11-02] MEDS: CLOPIDOGREL BISULFATE 75 MG TABLET PO SCH (11:00)
[2019-11-02] MEDS: FUROSEMIDE 40 MG TABLET. PO SCH (11:00)
[2019-11-02] MEDS: levETIRAcetam 1,000 MG in IV DEXTROSE 5% 100ML 100 ML IV SCH ×2 (11:32→20:56)
[2019-11-02] MEDS: VANCOMYCIN PER PHARMACY MC PRN ×2 (11:36→11:39)
[2019-11-02] MEDS: CETIRIZINE HCL 10 MG TABLET. PO SCH (11:38)
[2019-11-02] MEDS: CITALOPRAM 10 MG TABLET. PO SCH (11:39)
[2019-11-02] MEDS: CARVEDILOL 3.125 MG TABLET. PO SCH ×2 (11:40→18:34)
[2019-11-02] MEDS: PIPERACILLIN/TAZOBACTAM 3.375 GM in IV NORMAL SALINE 50ML 50 ML IV SCH ×2 (11:42→18:35)
--- NOTE | 2019-11-02 12:16 | NUR ---
Pharmacy Vancomycin Dosing Note S:Consulted to monitor and dose vancomycin started 11/01/19. O:GUILLERMO JIMENEZ is a 79 year old F with Pneumonia . Height: 5 feet, 4 inches Weight: 62.5 kg [place] Body Weight: 54.70 Adjusted Body Weight: 57.82 Dosing Weight: Actual Other Antibiotics: CTX LABS: Last BUN: 9 Last Creatinine: 1.0 Creatinine Clearance: 41 mL/min Last WBC: 12.0 Last Procalcitonin: - Tmax (past 24 hours): 97.8 Microbiology: 11/01 PENDING I/O: -/575 Drug Levels: Last level: on at Last dose given 11/01/19 at 2330 Vancomycin Dosing: Loading Dose: x1 Dosing Weight: Actual Target Trough: 15-20 A: Based on: WEIGHT, CRCL~41, P: 1. INITIATE Vancomycin 1000 mg IV q24h 2. Follow up Trough level on 11/03/19 at 2130 3. Pharmacy will continue to monitor, follow and adjust therapy as needed. CAREY CHIANG [facility], 11/02/19 [id number]
[2019-11-02 14:28] LABS: CALCIUM 8.2 mg/dL (8.5-10.1); CREATININE 1.1 mg/dL (0.6-1.0); GFR 47.8
--- NOTE | 2019-11-02 18:16 | EKG ---
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
[2019-11-02] MEDS: FUROSEMIDE 20 MG TABLET PO SCH (18:34)
[2019-11-02] MEDS: LATANOPROST 0.005% OPHTH SOLUTION 2.5ML BOTTLE. OU SCH (20:56)
[2019-11-02] MEDS: ATORVASTATIN CALCIUM 10 MG TABLET. PO SCH (20:56)
[2019-11-02] MEDS: VANCOMYCIN 1 GM in IV NORMAL SALINE 250ML 250 ML IV SCH (22:00)
[2019-11-03] VITALS (25 sets, daily range): BP systolic 102–188; BP diastolic 45–84
[2019-11-03] MEDS: PIPERACILLIN/TAZOBACTAM 3.375 GM in IV NORMAL SALINE 50ML 50 ML IV SCH ×5 (00:14→23:58)
--- NOTE | 2019-11-03 00:15 | CONS ---
DATE OF CONSULTATION: 11/02/2019 REFERRING PHYSICIAN: Fabiano To MD REASON FOR CONSULTATION: New-onset seizure. HISTORY OF PRESENT ILLNESS: The patient is an 79-year-old woman, who is a resident of [facility] since 08/29/2017. She was taken to the Emergency Room at [facility] due to new-onset seizure. According to records, she was nonverbal and had no gag response. She was intubated with a GlideScope. She required 7.5 mg of intravenous Versed to resolve her ongoing seizure. Since being admitted to [facility], she has not had further seizure. She was started on intravenous Keppra for seizure prevention. She has been intubated, ventilated, and sedated. History is obtained exclusively from the medical records as well as discussion with nursing staff. What not apparent in the medical records or in discussion with nursing staff is her baseline level of functioning. PAST MEDICAL HISTORY: 1. Generalized muscle deconditioning. 2. Osteoporosis. 3. Dyspnea. 4. Hyperlipidemia. 5. Nutritional deficiency. 6. Glaucoma. 7. Chronic pain syndrome. 8. Chronic obstructive pulmonary disease. 9. Dementia. 10. History of congestive heart failure. 11. Diabetes. 12. Hypertension. 13. History of breast cancer with right mastectomy. ALLERGIES: IODINATED CONTRAST MEDIA, ASPIRIN, CORN, GREEN BEANS, LEVOTHYROXINE, AND METFORMIN. MEDICATIONS PRIOR ADMISSION Acetaminophen 650 mg as needed, Augmentin 1 tablet twice per day for 6 days initiated on 10/30/2019, citalopram 10 mg, clopidogrel 75 mg, Coreg 3.125 mg twice per day, glimepiride 1 mg, ipratropium/albuterol by nebulizer every 4 hours as needed, ipratropium/albuterol scheduled 4 times a day, lidocaine patch 4% to lower back, lisinopril 10 mg, [place] 5/325 every 6 hours as needed, insulin, Protonix 40 mg, sitagliptin 100 mg, Voltaren topical gel. FAMILY HISTORY: Noncontributory. SOCIAL HISTORY: She is a resident at [facility] according to this note in 08/2016. Although I am looking at the MAR summary and it looks like 08/29/2017. She does not smoke tobacco or drink alcohol. REVIEW OF SYSTEMS: Entirely unobtainable as the patient is intubated and sedated. PHYSICAL EXAMINATION: VITAL SIGNS: The blood pressure was 121/53, pulse 91, respirations 16, temperature 99 degrees axillary. Oximetry was 100% on the ventilator. Her weight was 62.5 kilograms, height 64 cm with a calculated body mass index of 23.7. NEUROLOGIC: She was intubated, sedated, and unresponsive. Sternal rub caused her to alert slightly and moan, but there was no opening eyes or following up command. When I held the eyes open, they did appear conjugate. Oculocephalic reflex was partially intact. She responded to loud clap by blinking. She did not respond to visual threat. Neck was not rigid. Muscle bulk was symmetric. Tone was increased asymmetrically more in the left arm than the right. Both legs appeared to have increased tone. She did not voluntarily move to command. Nail bed pressure did cause some withdrawal with better movement of withdrawal in the right arm than the left. This caused her to alert slightly and moan but did not achieve consciousness. Nail bed pressure of the feet also provoked some withdrawal. Plantar stimulation appeared to provoke upgoing toes bilaterally but definitely in the left foot more than the right. Coordination testing was not possible. Sensory examination was only intact to noxious stimulation. Peripheral pulses were symmetric in the hands and feet. There was no edema or cyanosis. Auscultation of the carotid arteries did not reveal a bruit. Heart rhythm was regular with a murmur. LABORATORY RESULTS: CBC was performed on 11/02/2019 revealing an elevated white count of 12. Hemoglobin was diminished at 9.9, hematocrit 29, and platelet count was 291. Chemistries were performed on 11/02/2019. Sodium, potassium, chloride, and CO2 were normal. Initial potassium was 2.6, but was replaced to 4. Anion gap was elevated at 15. BUN was 10 and creatinine 1.1 with a GFR that calculated at 47.8. Glucose was 149. Lactic acid was not elevated. Calcium was low at 9.2. BNP was elevated at 22,552. Troponin was elevated to 0.176. Liver enzymes were not elevated. Magnesium was low to 1.3. PT/INR was 1.1. Arterial blood gas was performed on 11/02/2019 on the ventilator with an FiO2 of 40%; pH was elevated to 7.51; the pCO2 was low at 29, pO2 was 84, bicarbonate was 22. IMAGING: Chest x-ray was performed on 11/02/2019 revealing a small left pleural effusion. There was retrocardiac atelectasis or infiltrate. There was mild pulmonary edema. CT scan of the head and cervical spine was performed at [facility]. There was no evidence for a cervical spine fracture or dislocation. CT scan of the brain did not reveal hemorrhage. There were some lucencies, but it is not clear if this was artifact or old stroke. IMPRESSION: The patient is an 79-year-old woman, who has been a long-term resident at [facility]. Apparently, she had an alteration where she had a seizure and may have aspirated. There may be underlying infection. The cause of the seizure is not clear. It is noted by nursing staff that there is a history of underlying dementia as well. I do not know her baseline level of functioning. Neurologic examination does have a focality, which suggests there may have been a right hemispheric stroke leading to left hemiparesis. No definite acute stroke is seen on the CAT scan and there is no hemorrhage. I am relieved that the cervical CAT scan did not reveal evidence for damage to the cervical spine. She may be encephalopathic from underlying infection as well. RECOMMENDATIONS: I would recommend continuing with underlying supportive care with the ventilator as she needs this due to respiratory failure. If she comes back COVID negative, then I would proceed with MRI of the brain. She is receiving levetiracetam 1000 mg twice per day. This should help prevent further seizure. I would consider reducing the dosage after another 1000 mg as she should be fully loaded by that point and we can reduce it to 500 mg twice per day. I would keep sedation to a minimum. I will be happy to reevaluate. CLARICE CHILDS MD DR: TATIANA/shubham JOB#: [id number] / [id number] FERNANDO Galaviz MD, FERILYN MD
[2019-11-03 06:34] LABS: HEMATOCRIT 26.1 % (36.0-47.0); HEMOGLOBIN 8.9 g/dL (12.0-15.5); RED BLOOD COUNT 2.96 x10^6/uL (3.50-5.40); RED CELL DISTRIBUTION WIDTH 16.3 % (11.5-14.5); WHITE BLOOD COUNT 11.6 x10^3/uL (4.0-11.0)
[2019-11-03 06:46] LABS: ALBUMIN 2.2 g/dL (3.4-5.0); ALBUMIN/GLOBULIN RATIO 0.9 (1.0-1.7); CREATININE 1.3 mg/dL (0.6-1.0); GFR 39.4; POTASSIUM 3.5 mmol/L (3.5-5.1); TOTAL BILIRUBIN 0.4 mg/dL (0.2-1.0); TOTAL PROTEIN 4.7 g/dL (6.4-8.2)
--- NOTE | 2019-11-03 07:01 | PDOC ---
PULMONARY PROGRESS NOTES Subjective on vent, sedated on propofol, no sz, started on keppra by neurology, small ett secretion, has had episodes of torsade Vitals Vital Signs Date Time Temp Pulse Resp B/P (MAP) Pulse Ox O2 Delivery O2 Flow Rate FiO2 11/03/19 06:00 89 16 170/68 (102) 100 Ventilator 11/03/19 05:00 98.6 98.6 Comments ros unable to obtain on vent sedated on vent sedated appears comfortable no paradoxical abd motion ekg nsr no edema no rash Labs Laboratory Tests Test 11/02/19 06:00 11/02/19 08:00 11/02/19 09:00 11/02/19 13:30 White Blood Count 12.0 x10^3/uL (4.0-11.0) Red Blood Count 3.27 x10^6/uL (3.50-5.40) Hemoglobin 9.9 g/dL (12.0-15.5) Hematocrit 29.0 % (36.0-47.0) Mean Corpuscular Volume 89 fL (79-100) Mean Corpuscular Hemoglobin 30 pg (25-35) Mean Corpuscular Hemoglobin Concent 34 g/dL (31-37) Red Cell Distribution Width 15.7 % (11.5-14.5) Platelet Count 291 x10^3/uL (140-400) Neutrophils (%) (Auto) 78 % (31-73) Lymphocytes (%) (Auto) 10 % (24-48) Monocytes (%) (Auto) 12 % (0-9) Eosinophils (%) (Auto) 1 % (0-3) Basophils (%) (Auto) 0 % (0-3) Neutrophils # (Auto) 9.3 x10^3/uL (1.8-7.7) Lymphocytes # (Auto) 1.1 x10^3/uL (1.0-4.8) Monocytes # (Auto) 1.4 x10^3/uL (0.0-1.1) Eosinophils # (Auto) 0.1 x10^3/uL (0.0-0.7) Basophils # (Auto) 0.0 x10^3/uL (0.0-0.2) Prothrombin Time 13.7 SEC (11.7-14.0) Prothromb Time International Ratio 1.1 (0.8-1.1) Sodium Level 141 mmol/L (136-145) 139 mmol/L (136-145) Potassium Level 2.6 mmol/L (3.5-5.1) 4.0 mmol/L (3.5-5.1) Chloride Level 99 mmol/L (98-107) 99 mmol/L (98-107) Carbon Dioxide Level 27 mmol/L (21-32) 25 mmol/L (21-32) Anion Gap 15 (6-14) 15 (6-14) Blood Urea Nitrogen 9 mg/dL (7-20) 10 mg/dL (7-20) Creatinine 1.0 mg/dL (0.6-1.0) 1.1 mg/dL (0.6-1.0) Estimated GFR (Cockcroft-Gault) 53.3 47.8 BUN/Creatinine Ratio 9 (6-20) Glucose Level 97 mg/dL (70-99) 149 mg/dL (70-99) Calcium Level 9.0 mg/dL (8.5-10.1) 8.2 mg/dL (8.5-10.1) Magnesium Level 1.3 mg/dL (1.8-2.4) Total Bilirubin 0.6 mg/dL (0.2-1.0) Aspartate Amino Transf (AST/SGOT) 20 U/L (15-37) Alanine Aminotransferase (ALT/SGPT) 11 U/L (14-59) Alkaline Phosphatase 42 U/L (46-116) Troponin I Quantitative 0.176 ng/mL (0.000-0.055) HO-Gxp-H-Type Natriuretic Peptide 49772 pg/mL (0-449) Total Protein 5.8 g/dL (6.4-8.2) Albumin 2.6 g/dL (3.4-5.0) Albumin/Globulin Ratio 0.8 (1.0-1.7) O2 Saturation 96 % (92-99) Arterial Blood pH 7.51 (7.35-7.45) Arterial Blood pCO2 at Patient Temp 29 mmHg (35-46) Arterial Blood pO2 at Patient Temp 84 mmHg (65-108) Arterial Blood HCO3 22 mmol/L (21-28) Arterial Blood Base Excess 0 mmol/L (-3-3) FiO2 40% vent Lactic Acid Level 1.0 mmol/L (0.4-2.0) Test 11/03/19 06:00 Sodium Level 139 mmol/L (136-145) Potassium Level 3.5 mmol/L (3.5-5.1) Chloride Level 101 mmol/L (98-107) Carbon Dioxide Level 32 mmol/L (21-32) Anion Gap 6 (6-14) Blood Urea Nitrogen 10 mg/dL (7-20) Creatinine 1.3 mg/dL (0.6-1.0) Estimated GFR (Cockcroft-Gault) 39.4 BUN/Creatinine Ratio 8 (6-20) Glucose Level 114 mg/dL (70-99) Calcium Level 8.0 mg/dL (8.5-10.1) Total Bilirubin 0.4 mg/dL (0.2-1.0) Aspartate Amino Transf (AST/SGOT) 33 U/L (15-37) Alanine Aminotransferase (ALT/SGPT) 13 U/L (14-59) Alkaline Phosphatase 40 U/L (46-116) Total Protein 4.7 g/dL (6.4-8.2) Albumin 2.2 g/dL (3.4-5.0) Albumin/Globulin Ratio 0.9 (1.0-1.7) Laboratory Tests Test 11/02/19 08:00 11/02/19 09:00 11/02/19 13:30 11/03/19 06:00 O2 Saturation 96 % (92-99) Arterial Blood pH 7.51 (7.35-7.45) Arterial Blood pCO2 at Patient Temp 29 mmHg (35-46) Arterial Blood pO2 at Patient Temp 84 mmHg (65-108) Arterial Blood HCO3 22 mmol/L (21-28) Arterial Blood Base Excess 0 mmol/L (-3-3) FiO2 40% vent Lactic Acid Level 1.0 mmol/L (0.4-2.0) Sodium Level 139 mmol/L (136-145) 139 mmol/L (136-145) Potassium Level 4.0 mmol/L (3.5-5.1) 3.5 mmol/L (3.5-5.1) Chloride Level 99 mmol/L (98-107) 101 mmol/L (98-107) Carbon Dioxide Level 25 mmol/L (21-32) 32 mmol/L (21-32) Anion Gap 15 (6-14) 6 (6-14) Blood Urea Nitrogen 10 mg/dL (7-20) 10 mg/dL (7-20) Creatinine 1.1 mg/dL (0.6-1.0) 1.3 mg/dL (0.6-1.0) Estimated GFR (Cockcroft-Gault) 47.8 39.4 Glucose Level 149 mg/dL (70-99) 114 mg/dL (70-99) Calcium Level 8.2 mg/dL (8.5-10.1) 8.0 mg/dL (8.5-10.1) BUN/Creatinine Ratio 8 (6-20) Total Bilirubin 0.4 mg/dL (0.2-1.0) Aspartate Amino Transf (AST/SGOT) 33 U/L (15-37) Alanine Aminotransferase (ALT/SGPT) 13 U/L (14-59) Alkaline Phosphatase 40 U/L (46-116) Total Protein 4.7 g/dL (6.4-8.2) Albumin 2.2 g/dL (3.4-5.0) Albumin/Globulin Ratio 0.9 (1.0-1.7) Medications Active Scripts Medications Dose Route/Sig Max Daily Dose Days Date Category Dose Instructions Paxtonuvia (Sitagliptin Phosphate) 100 Mg Tablet 1 Tab PO DAILY 11/02/19 Reported Pantoprazole Sodium (Pantoprazole Sodium) 40 Mg Tablet. 20 Mg PO DAILYAC 11/02/19 Reported Glimepiride 1 Mg Tablet 1 Tab PO DAILY 11/02/19 Reported Hydrocodone-Apap 5-325 (Hydrocodone Bit/Acetaminophen) 1 Tab Tablet 1 Tab PO PRN Q6HRS PRN 11/02/19 Reported Lisinopril 10 Mg Tablet 1 Tab PO DAILY 11/02/19 Reported Acetaminophen 500 Mg Tablet 1 Tab PO BID 11/30/18 Reported Trazodone Hcl 50 Mg Tablet 0.5 Tab PO QHS 11/30/18 Reported Omeprazole 20 Mg Capsule.dr 1 Cap PO DAILY 11/30/18 Reported Novolog (Insulin Aspart) 100 Unit/1 Ml Cartridge 100 Unit SQ QIDACHS 11/30/18 Reported Naproxen 500 Mg Tablet 1 Tab PO PRN Q8HRS PRN 11/30/18 Reported Lidocaine PATCH (Lidocaine) 1 Each Adh..patch 1 Each TP DAILY 11/30/18 Reported REMOVE AFTER 12 HOURS Latanoprost 2.5 Ml Drops 1 Drop EACHEYE QHS 11/30/18 Reported Duoneb 0.5-3(2.5) Mg/3 Ml (Albuterol/Ipratropium) 3 Ml Ampul.neb 3 Ml NEB PRN Q4HRS PRN 11/30/18 Reported Imodium A-D (Loperamide HCl) 2 Mg Capsule 2 Mg PO PRN PRN 11/30/18 Reported Flonase Allergy Relief (Fluticasone Propionate) 9.9 Ml Wister.susp 1 Sprays NS PRN Q12HRS PRN 11/30/18 Reported Coreg (Carvedilol) 3.125 Mg Tablet 3.125 Mg PO BIDWMEALS 11/30/18 Reported Chloraseptic (Phenol) 20 Ml Wister 1 Wister MM PRN Q6HRS PRN 11/30/18 Reported Calcium Citrate 250 Mg Tablet 500 Mg PO DAILY 11/30/18 Reported Tylenol (Acetaminophen) 325 Mg Tablet 2 Tab PO PRN Q6HRS PRN 11/30/18 Reported Atorvastatin Calcium 10 Mg Tablet 1 Tab PO QHS 11/30/18 Reported Proair Respiclick (Albuterol Sulfate) 90 Mcg Aer.pow.ba 1 Puff IH PRN Q6HRS PRN 01/18/17 Reported Alendronate Sodium 70 Mg Tablet 1 Tab PO WEEKLY 01/18/17 Reported Citalopram Hbr (Citalopram Hydrobromide) 10 Mg Tablet 1.5 Tab PO DAILY 01/18/17 Reported Cetirizine Hcl 10 Mg Tablet 1 Tab PO DAILY 01/18/17 Reported Guaifenesin 600 Mg Tablet.er 600 Mg PO PRN Q8HRS PRN 01/18/17 Reported Clopidogrel (Clopidogrel Bisulfate) 75 Mg Tablet 1 Tab PO DAILY 01/18/17 Reported Novolog Flexpen (Insulin Aspart) 100 Unit/1 Ml Insuln.pen 0-3 Unit SQ QIDACHS 10/25/19 Reported PATIENT SLIDING SCALE. 70-249= 0 UNITS. 250-400= 3UNITS. BEFORE MEALS AND AT BEDTIME GIVE 3 UNITS IF BLOOD SUGAR 250 OR ABOVE. Diclofenac Sodium 100 Gm Gel..gram. 1 Carlos TP DAILY 10/25/19 Reported D3-50 (Cholecalciferol (Vitamin D3)) 50,000 Unit Capsule 50,000 Unit PO DAILY 10/25/19 Reported Trazodone Hcl 50 Mg Tablet 0.5 Tab PO QHS 10/25/19 Reported Reglan (Metoclopramide Hcl) 5 Mg Tablet 5 Mg PO DAILY 10/25/19 Reported Protonix (Pantoprazole Sodium) 20 Mg Tablet.dr 1 Tab PO DAILY 10/25/19 Reported [place] 5-325 Tablet (Hydrocodone Bit/Acetaminophen) 1 Each Tablet 1 Tab PO Q4HRS 10/25/19 Reported Naproxen 500 Mg Tablet 1 Tab PO Q8HRS 10/25/19 Reported Lisinopril 2.5 Mg Tablet 1 Tab PO DAILY 10/25/19 Reported Lidocaine PATCH (Lidocaine) 1 Each Adh..patch 1 Each TP DAILY 10/25/19 Reported REMOVE AFTER 12 HOURS Lasix (Furosemide) 20 Mg Tablet 1 Tab PO DAILY 30 10/25/19 Reported Duoneb 0.5-3(2.5) Mg/3 Ml (Albuterol/Ipratropium) 3 Ml Ampul.neb 3 Ml NEB QID 10/25/19 Reported Imodium A-D (Loperamide HCl) 2 Mg Capsule 2 Mg PO DAILY 10/25/19 Reported Guaifenesin 400 Mg Tablet 400 Mg PO Q8HRS 10/25/19 Reported Coreg (Carvedilol) 3.125 Mg Tablet 3.125 Mg PO BID 10/25/19 Reported Clopidogrel (Clopidogrel Bisulfate) 75 Mg Tablet 75 Mg PO DAILY 10/25/19 Reported Citalopram Hbr (Citalopram Hydrobromide) 10 Mg Tablet 10 Mg PO DAILY 10/25/19 Reported Atorvastatin Calcium 10 Mg Tablet 10 Mg PO DAILY 10/25/19 Reported Proair Hfa Inhaler (Albuterol Sulfate) 8.5 Gm Hfa.aer.ad 1 Puff INH PRN Q6HRS 10/25/19 Reported Acetaminophen 500 Mg Tablet 1 Tab PO PRN Q6HRS 10/25/19 Reported Glimepiride 1 Mg Tablet 1 Mg PO DAILY 07/05/14 Reported Simvastatin 40 Mg Tablet 40 Mg PO HS 07/05/14 Reported Omeprazole 20 Mg Capsule.dr 20 Mg PO DAILY 2/21/15 Reported Januvia (Sitagliptin Phosphate) 100 Mg Tablet 100 Mg PO DAILY 07/05/14 Reported Comments cxr reviewed 1. Small left pleural effusion. Retrocardiac atelectasis or infiltrate. 2. Mild pulmonary edema. ett ok Impression . IMPRESSION: 1. Acute respiratory failure, multifactorial in etiology. 2. New-onset seizure. 3. Acute diastolic congestive heart failure, rule out myocardial infarction, rule out pneumonia. 4. Abnormal chest x-ray. 5. Electrolyte abnormality. 6. Hypertensive urgency. 7. Diabetes mellitus. 8. COVID-19 PUI. Plan . PLAN AND RECOMMENDATIONS: 1. Titrate FiO2 to keep O2 saturation 94%. 2. Continue ventilator support. Vent setting was reviewed. We will do ABG. Change vent setting per ABG. try to decrease sedation to eval mental status 3. Replace potassium and magnesium. monitor heart rhythm as she has had episodes of torsade 4. Monitor troponin. 5. follow Neurology rec, on keppra, if covid neg, mri of brain. 6. Continue ventilator support until the patient is more stable. 7. Pepcid for stress ulcer prophylaxis. 8. SCDs for DVT prophylaxis. 9. The findings and recommendations were discussed with RN and RT. 10. Follow up COVID-19. discussed w rn, rt critically ill cc time 30 min no overlap ADELIA OBRIEN MD Nov 03, 2019 07:01
[2019-11-03] MEDS ORDERED: PANTOPRAZOLE 40 MG TABLET.DR. PO SCH (07:30)
[2019-11-03] MEDS: CARVEDILOL 3.125 MG TABLET. PO SCH ×2 (08:02→17:00)
[2019-11-03 08:18] LABS: BASE EXCESS ABG 4 mmol/L (-3-3); HCO3 ABG 26 mmol/L (21-28); PCO2 ABG 29 mmHg (35-46); PO2 ABG 104 mmHg (65-108); SAT O2 ABG 97 % (92-99)
[2019-11-03] MEDS: CLOPIDOGREL BISULFATE 75 MG TABLET PO SCH (09:00)
[2019-11-03] MEDS: FAMOTIDINE 20 MG/2 ML VIAL IVP SCH (09:00)
[2019-11-03] MEDS: levETIRAcetam 1,000 MG in IV DEXTROSE 5% 100ML 100 ML IV SCH (09:13)
[2019-11-03] MEDS: CHLORHEXIDINE 0.12% 15 ML MOUTHWASH. MM SCH ×2 (09:13→21:00)
[2019-11-03] MEDS: FUROSEMIDE 40 MG TABLET. PO SCH (09:14)
[2019-11-03] MEDS: CITALOPRAM 10 MG TABLET. PO SCH (09:14)
[2019-11-03] MEDS: CETIRIZINE HCL 10 MG TABLET. PO SCH (09:14)
[2019-11-03] MEDS: cefTRIAXone IV Push 1 GM VIAL. IVP SCH (09:15)
[2019-11-03] MEDS: VANCOMYCIN PER PHARMACY MC PRN (09:23)
--- NOTE | 2019-11-03 09:45 | NUR ---
Patient is still actively weeping blood from puncture sites, holding plavix at this time.
--- NOTE | 2019-11-03 09:52 | PN ---
DATE: 11/03/2019 SUBJECTIVE: The patient continued to be intubated, mechanically ventilated and sedated. She is off the Cardene drip. Her blood pressure is well controlled now. She has had no documented seizures after admission. PHYSICAL EXAMINATION: GENERAL: When I examined her this morning, she looked pale, but no jaundice, cyanosis or thyromegaly. No jugular venous distention. No lower limb edema. VITAL SIGNS: Her heart rate was 84, blood pressure was 161/75, temperature was 98.7, respiratory rate was 26, and oxygen saturation was 100% on FiO2 of 40%. HEAD, EYES, EARS, NOSE AND THROAT: Showed normocephalic, atraumatic. She has orogastric and orotracheal tube in place. NECK: Supple. CARDIAC: Normal first and second heart sounds. No gallop, rub or murmur. CHEST: Showed central trachea, equal bilateral chest expansion, air entry, vesicular sounds. No crepitation or rhonchi. ABDOMEN: Distended, soft, nontender. NEUROLOGIC: She is heavily sedated. Her intake over the last 24 hours was incompletely recorded. LABORATORY DATA: As of this morning showed white cell count was 11,600, hemoglobin 8.9, hematocrit 26, MCV 88 and platelet count 276,000. Her chemistry this morning showed a serum sodium 139, potassium 3.5, chloride 101, bicarbonate 32, anion gap of 6, BUN 10, creatinine 1.3, estimated GFR was 39 mL per minute. Her glucose 114, calcium was 8. Total bilirubin, AST, ALT, alkaline phosphatase were normal. Total protein was 4.7 and albumin was 2.2. ASSESSMENT: 1. This is an 79-year-old female patient, who was a resident at [facility], who presented with new onset of tonic-clonic seizures. 2. She probably has aspiration pneumonia and acute respiratory failure. She was intubated and transferred to [facility]. Her blood pressure was also extremely high, requiring Cardene drip. She did receive Keppra 1000 mg IV twice a day. Her potassium was also extremely low at 2.6 and was replenished and today's potassium is 3.5. Her troponin was elevated with markedly elevated BNP and she was seen in consultation by Dr. Casillas and 2D echo was ordered. PLAN: To obviously continue with mechanical ventilation, wean as tolerated. I cut down her Keppra to 500 mg IV twice a day. Continue with IV antibiotic for possible aspiration pneumonia. Continue with all other medication. I will contact the [facility] to enquire about her functional status. FINESSE GEORGES MD DR: IRISH/shubham JOB#: [id number] / [id number]
--- NOTE | 2019-11-03 10:07 | NUR ---
Daughter, Pearl, called this morning. She reported the following: At [place] [facility]: she is normally very social, independent feeder, uses walker. Daughter reported: recent admission to [facility] for Pneumonia and when she returned to [facility] she was put in isolation "She did not like that at all, she hates being alone. And she told me she was seeing things". Daughter reported that the patient "has a mass on her spine, and I know that can do a lot of different things, you guys did the bone marrow". "Oh and her regular doctor is Dr. Duarte in [place]." Will fill neurology in on baseline when they arrive.
[2019-11-03 11:05] LABS: FIO2 ABG 40% +5
[2019-11-03] MEDS: PROPOFOL 100 ML IV PRN (11:18)
[2019-11-03] MEDS ORDERED: MAGNESIUM SULFATE 2GM 50 ML IV ONE (12:00)
--- NOTE | 2019-11-03 13:14 | PDOC ---
PROGRESS NOTES Subjective Subjective intubated and sedated Objective Objective Vital Signs Date Time Temp Pulse Resp B/P (MAP) Pulse Ox O2 Delivery O2 Flow Rate FiO2 11/03/19 11:30 100 Ventilator 11/03/19 11:00 78 21 165/73 (103) 11/03/19 08:00 98.7 98.7 Intake and Output 11/03/19 07:00 Intake Total 1312 ml Output Total 425 ml Balance 887 ml Intake IV Total 1162 ml Tube Feeding 150 ml Output Urine Total 425 ml Physical Exam Abdomen: Soft Heart: Regular rate Extremities: No clubbing General: Other (Intubated and sedated) Lungs: Other (Decreased air entry bases) Assessment Assessment 1. Accelerated hypertension: Better controlled since admission but still elevated. Continue coreg and start Losartan. Monitor Cr levels. Check 2D echo to assess LV systolic function. 2. New onset seizure disorder: Started on Keppra by neurology team 3. Acute respiratory failure, multifactorial: s/p intubation, treat per pulmonary team. COVID test pending. Continue empiric antibiotics. 4. Acute on chronic diastolic heart failure: Continue diuretics 5. Slightly elevated troponin level, most probably demand ischemia: Plan ischemic evaluation as an outpatient. 6. Torsades: several brief episodes on telemetry. Mg 1.8 - replace IV. EKG yesterday showed prolonged QTc 521. Med list reviewed with pharmacy -prolonged QTC probably secondary to Celexa and propofol. Pharmacy to check with Dr. To and change to Zoloft and precedex. Comment Review of Relevant I have reviewed the following items regina (where applicable) has been applied. Labs Laboratory Tests Test 11/02/19 13:30 11/03/19 06:00 11/03/19 08:15 Sodium Level 139 mmol/L (136-145) 139 mmol/L (136-145) Potassium Level 4.0 mmol/L (3.5-5.1) 3.5 mmol/L (3.5-5.1) Chloride Level 99 mmol/L (98-107) 101 mmol/L (98-107) Carbon Dioxide Level 25 mmol/L (21-32) 32 mmol/L (21-32) Anion Gap 15 (6-14) 6 (6-14) Blood Urea Nitrogen 10 mg/dL (7-20) 10 mg/dL (7-20) Creatinine 1.1 mg/dL (0.6-1.0) 1.3 mg/dL (0.6-1.0) Estimated GFR (Cockcroft-Gault) 47.8 39.4 Glucose Level 149 mg/dL (70-99) 114 mg/dL (70-99) Calcium Level 8.2 mg/dL (8.5-10.1) 8.0 mg/dL (8.5-10.1) White Blood Count 11.6 x10^3/uL (4.0-11.0) Red Blood Count 2.96 x10^6/uL (3.50-5.40) Hemoglobin 8.9 g/dL (12.0-15.5) Hematocrit 26.1 % (36.0-47.0) Mean Corpuscular Volume 88 fL (79-100) Mean Corpuscular Hemoglobin 30 pg (25-35) Mean Corpuscular Hemoglobin Concent 34 g/dL (31-37) Red Cell Distribution Width 16.3 % (11.5-14.5) Platelet Count 276 x10^3/uL (140-400) BUN/Creatinine Ratio 8 (-20) Magnesium Level 1.8 mg/dL (1.8-2.4) Total Bilirubin 0.4 mg/dL (0.2-1.0) Aspartate Amino Transf (AST/SGOT) 33 U/L (15-37) Alanine Aminotransferase (ALT/SGPT) 13 U/L (14-59) Alkaline Phosphatase 40 U/L (46-116) Total Protein 4.7 g/dL (6.4-8.2) Albumin 2.2 g/dL (3.4-5.0) Albumin/Globulin Ratio 0.9 (1.0-1.7) O2 Saturation 97 % (92-99) Arterial Blood pH 7.56 (7.35-7.45) Arterial Blood pCO2 at Patient Temp 29 mmHg (35-46) Arterial Blood pO2 at Patient Temp 104 mmHg (65-108) Arterial Blood HCO3 26 mmol/L (21-28) Arterial Blood Base Excess 4 mmol/L (-3-3) FiO2 40% +5 Medications Current Medications Atorvastatin Calcium (Lipitor) 10 mg QHS PO Last administered on 11/02/19at 20:56; Start 11/02/19 at 21:00 Furosemide (Lasix) 20 mg QEVNG PO Last administered on 11/02/19at 18:34; Start 11/02/19 at 18:00 Latanoprost (Xalatan) 1 drop QHS OU Last administered on 11/02/19at 20:56; Start 11/02/19 at 21:00 Levetiracetam 500 mg/Dextrose 105 ml @ 420 mls/hr Q12HR IV ; Start 11/03/19 at 21:00 Magnesium Sulfate 50 ml @ 25 mls/hr 1X ONCE IV ; Start 11/03/19 at 12:00; Stop 11/03/19 at 13:59 Pantoprazole Sodium (Protonix) 20 mg DAILYAC PO ; Start 11/03/19 at 07:30; Status UNV Vancomycin HCl (Vancomycin Trough Level) 1 each 1X ONCE MC ; Start 11/03/19 at 21:30; Stop 11/03/19 at 21:31 Vancomycin HCl 1 gm/Sodium Chloride 250 ml @ 250 mls/hr Q24H IV Last administered on 11/02/19at 22:00; Start 11/02/19 at 22:00 Vitals/I & O Vital Sign - Last 24 Hours 11/02/19 11/02/19 11/02/19 11/02/19 14:00 15:00 16:00 16:00 Temp 98.7 98.7 Pulse 85 88 88 Resp 16 16 16 B/P (MAP) 114/52 (72) 116/52 (73) 113/53 (73) Pulse Ox 99 100 99 O2 Delivery Ventilator Ventilator Ventilator Mechanical Ventilator 11/02/19 11/02/19 11/02/19 11/02/19 16:26 17:00 18:00 18:34 Pulse 88 88 91 Resp 16 16 B/P (MAP) 109/50 (69) 101/36 (57) 121/53 Pulse Ox 100 100 100 O2 Delivery Ventilator Ventilator Ventilator 11/02/19 11/02/19 11/02/19 11/02/19 19:00 20:00 20:00 21:00 Temp 98.5 98.5 Pulse 88 82 86 Resp 16 16 16 B/P (MAP) 139/55 (83) 140/60 (86) 151/60 (90) Pulse Ox 100 100 100 O2 Delivery Ventilator Mechanical Ventilator Ventilator Ventilator 11/02/19 11/02/19 11/02/19/21/20 21:10 22:00 23:00 00:00 Pulse 88 83 Resp 16 16 B/P (MAP) 153/69 (97) 159/75 (103) Pulse Ox 100 100 100 O2 Delivery Ventilator Ventilator Ventilator Mechanical Ventilator 11/03/19 11/03/19 11/03/19 11/03/19 00:00 00:31 01:00 02:00 Pulse 87 88 89 Resp 16 16 16 B/P (MAP) 164/70 (101) 160/67 (98) 160/68 (98) Pulse Ox 100 100 100 100 O2 Delivery Ventilator Ventilator Ventilator Ventilator 11/03/19 11/03/19 11/03/19 11/03/19 03:00 04:00 04:00 04:40 Pulse 91 85 Resp 16 16 B/P (MAP) 172/84 (113) 164/68 (100) Pulse Ox 100 100 100 O2 Delivery Ventilator Mechanical Ventilator Ventilator Ventilator 11/03/19 11/03/19 11/03/19 11/03/19 05:00 06:00 07:00 08:00 Temp 98.6 98.7 98.6 98.7 Pulse 84 89 75 84 Resp 16 16 17 26 B/P (MAP) 154/65 (94) 170/68 (102) 154/80 (104) 161/75 (103) Pulse Ox 100 100 95 100 O2 Delivery Ventilator Ventilator Ventilator Ventilator 11/03/19 11/03/19 11/03/19 11/03/19 08:00 08:02 08:15 09:00 Pulse 84 76 Resp 21 B/P (MAP) 161/75 171/76 (107) Pulse Ox 100 100 O2 Delivery Mechanical Ventilator Ventilator Ventilator 11/03/19 11/03/19 11/03/19 10:00 11:00 11:30 Pulse 76 78 Resp 22 21 B/P (MAP) 165/70 (101) 165/73 (103) Pulse Ox 100 100 100 O2 Delivery Ventilator Ventilator Ventilator Intake and Output 11/02/19 11/02/19 11/03/19 15:00 23:00 07:00 Intake Total 160 ml 896 ml 256 ml Output Total 70 ml 30 ml 325 ml Balance 90 ml 866 ml -69 ml ASHELY SANCHES MD Nov 03, 2019 13:14
[2019-11-03] MEDS ORDERED: IV NORMAL SALINE 500ML BAG 500 ML IV PRN (14:00)
[2019-11-03] MEDS ORDERED: ATROPINE 0.5 MG/5 ML DISP.SYRINGE. IV PRN (14:00)
[2019-11-03] MEDS: LOSARTAN POTASSIUM 25 MG TABLET. NG SCH (14:00)
[2019-11-03] MEDS: DEXMEDETOMIDINE 400 MCG in IV NORMAL SALINE 100ML 96 ML IV PRN (14:36)
--- NOTE | 2019-11-03 15:11 | EKG ---
[facility] [address] [place] [address] Test Date: 2019-11-03 Test Time: 15:05:44 Pat Name: GUILLERMO JIMENEZ Department: Room: 112 1 Gender: F Health Underwriter: KATIANA : 1940 Requested By: ASHELY SANCHES Order Number: [id number] Reading MD: Measurements Intervals [place] Rate: 87 P: 90 NC: 128 QRS: 74 QRSD: 86 T: 53 QT: 404 QTc: 493 Interpretive Statements SINUS RHYTHM LOW LIMB LEAD VOLTAGE PROLONGED QT NO SPECIFIC ECG ABNORMALITIES RI6.01 No previous ECG available for comparison
--- NOTE | 2019-11-03 17:26 | PDOC ---
PROGRESS NOTES Assessment 1. Respiratory failure for which she is intubated, ventilated and sedated. This adversely affects the neurologic examination. 2. Neurologic exam did not reveal the same focality. Yesterday it seemed that there was increased tone on the left side but I am not appreciating that as much today. She is now opening her eyes but her eyes do seem deviated to the left. She is also lying to the left so I am not clear if this is due to left hemispheric stroke. 3. She has not had any evidence of seizure since admitted to the intensive care unit. Plan 1. Neurology will continue to follow and evaluate her as sedation can be lifted and the neurologic exam can be more valid. 2. We can arrange for an MRI of the brain once her COVID test is complete and she is negative. We can always consider a follow-up CT scan of the head at a later time interval. 3. We will continue with intravenous Keppra 500 mg twice per day for seizure prevention. Subjective Nonverbal, intubated, ventilated and sedated Objective Vital Signs Date Time Temp Pulse Resp B/P (MAP) Pulse Ox O2 Delivery O2 Flow Rate FiO2 11/03/19 15:20 100 Ventilator 11/03/19 14:00 82 21 188/76 (113) 11/03/19 12:00 98.0 98.0 Intake and Output 11/03/19 07:00 Intake Total 1312 ml Output Total 425 ml Balance 887 ml Intake IV Total 1162 ml Tube Feeding 150 ml Output Urine Total 425 ml PHYSICAL EXAM She was intubated and sedated. She did open her eyes with sternal rub. There was no focus. Her eyes deviated to the left. Oculocephalic reflex was present. She responded to visual threat and loud clap. The face appeared symmetric. She did not squeeze hand to command to raise arms in the air. Tone seems slightly increased bilaterally but I did not see any focal increase more so on one side or the other. She did alert to noxious stimulation. If unstimulated she would drift off. Review of Relevant I have reviewed the following items regina (where applicable) has been applied. Labs Laboratory Tests Test 11/02/19 06:00 11/02/19 08:00 11/02/19 09:00 11/02/19 13:30 White Blood Count 12.0 x10^3/uL (4.0-11.0) Red Blood Count 3.27 x10^6/uL (3.50-5.40) Hemoglobin 9.9 g/dL (12.0-15.5) Hematocrit 29.0 % (36.0-47.0) Mean Corpuscular Volume 89 fL (79-100) Mean Corpuscular Hemoglobin 30 pg (25-35) Mean Corpuscular Hemoglobin Concent 34 g/dL (31-37) Red Cell Distribution Width 15.7 % (11.5-14.5) Platelet Count 291 x10^3/uL (140-400) Neutrophils (%) (Auto) 78 % (31-73) Lymphocytes (%) (Auto) 10 % (24-48) Monocytes (%) (Auto) 12 % (0-9) Eosinophils (%) (Auto) 1 % (0-3) Basophils (%) (Auto) 0 % (0-3) Neutrophils # (Auto) 9.3 x10^3/uL (1.8-7.7) Lymphocytes # (Auto) 1.1 x10^3/uL (1.0-4.8) Monocytes # (Auto) 1.4 x10^3/uL (0.0-1.1) Eosinophils # (Auto) 0.1 x10^3/uL (0.0-0.7) Basophils # (Auto) 0.0 x10^3/uL (0.0-0.2) Prothrombin Time 13.7 SEC (11.7-14.0) Prothromb Time International Ratio 1.1 (0.8-1.1) Sodium Level 141 mmol/L (136-145) 139 mmol/L (136-145) Potassium Level 2.6 mmol/L (3.5-5.1) 4.0 mmol/L (3.5-5.1) Chloride Level 99 mmol/L (98-107) 99 mmol/L (98-107) Carbon Dioxide Level 27 mmol/L (21-32) 25 mmol/L (21-32) Anion Gap 15 (6-14) 15 (6-14) Blood Urea Nitrogen 9 mg/dL (7-20) 10 mg/dL (7-20) Creatinine 1.0 mg/dL (0.6-1.0) 1.1 mg/dL (0.6-1.0) Estimated GFR (Cockcroft-Gault) 53.3 47.8 BUN/Creatinine Ratio 9 (6-20) Glucose Level 97 mg/dL (70-99) 149 mg/dL (70-99) Calcium Level 9.0 mg/dL (8.5-10.1) 8.2 mg/dL (8.5-10.1) Magnesium Level 1.3 mg/dL (1.8-2.4) Total Bilirubin 0.6 mg/dL (0.2-1.0) Aspartate Amino Transf (AST/SGOT) 20 U/L (15-37) Alanine Aminotransferase (ALT/SGPT) 11 U/L (14-59) Alkaline Phosphatase 42 U/L (46-116) Troponin I Quantitative 0.176 ng/mL (0.000-0.055) [id number]-[id number]-Type Natriuretic Peptide 11609 pg/mL (0-449) Total Protein 5.8 g/dL (6.4-8.2) Albumin 2.6 g/dL (3.4-5.0) Albumin/Globulin Ratio 0.8 (1.0-1.7) O2 Saturation 96 % (92-99) Arterial Blood pH 7.51 (7.35-7.45) Arterial Blood pCO2 at Patient Temp 29 mmHg (35-46) Arterial Blood pO2 at Patient Temp 84 mmHg (65-108) Arterial Blood HCO3 22 mmol/L (21-28) Arterial Blood Base Excess 0 mmol/L (-3-3) FiO2 40% vent Lactic Acid Level 1.0 mmol/L (0.4-2.0) Test 11/03/19 06:00 11/03/19 08:15 11/03/19 13:37 White Blood Count 11.6 x10^3/uL (4.0-11.0) Red Blood Count 2.96 x10^6/uL (3.50-5.40) Hemoglobin 8.9 g/dL (12.0-15.5) Hematocrit 26.1 % (36.0-47.0) Mean Corpuscular Volume 88 fL (79-100) Mean Corpuscular Hemoglobin 30 pg (25-35) Mean Corpuscular Hemoglobin Concent 34 g/dL (31-37) Red Cell Distribution Width 16.3 % (11.5-14.5) Platelet Count 276 x10^3/uL (140-400) Sodium Level 139 mmol/L (136-145) Potassium Level 3.5 mmol/L (3.5-5.1) Chloride Level 101 mmol/L (98-107) Carbon Dioxide Level 32 mmol/L (21-32) Anion Gap 6 (6-14) Blood Urea Nitrogen 10 mg/dL (7-20) Creatinine 1.3 mg/dL (0.6-1.0) Estimated GFR (Cockcroft-Gault) 39.4 BUN/Creatinine Ratio 8 (6-20) Glucose Level 114 mg/dL (70-99) Calcium Level 8.0 mg/dL (8.5-10.1) Magnesium Level 1.8 mg/dL (1.8-2.4) Total Bilirubin 0.4 mg/dL (0.2-1.0) Aspartate Amino Transf (AST/SGOT) 33 U/L (15-37) Alanine Aminotransferase (ALT/SGPT) 13 U/L (14-59) Alkaline Phosphatase 40 U/L (46-116) Total Protein 4.7 g/dL (6.4-8.2) Albumin 2.2 g/dL (3.4-5.0) Albumin/Globulin Ratio 0.9 (1.0-1.7) O2 Saturation 97 % (92-99) Arterial Blood pH 7.56 (7.35-7.45) Arterial Blood pCO2 at Patient Temp 29 mmHg (35-46) Arterial Blood pO2 at Patient Temp 104 mmHg (65-108) Arterial Blood HCO3 26 mmol/L (21-28) Arterial Blood Base Excess 4 mmol/L (-3-3) FiO2 40% +5 Glucose (Fingerstick) 138 mg/dL (70-99) Laboratory Tests Test 11/03/19 06:00 11/03/19 08:15 11/03/19 13:37 White Blood Count 11.6 x10^3/uL (4.0-11.0) Red Blood Count 2.96 x10^6/uL (3.50-5.40) Hemoglobin 8.9 g/dL (12.0-15.5) Hematocrit 26.1 % (36.0-47.0) Mean Corpuscular Volume 88 fL (79-100) Mean Corpuscular Hemoglobin 30 pg (25-35) Mean Corpuscular Hemoglobin Concent 34 g/dL (31-37) Red Cell Distribution Width 16.3 % (11.5-14.5) Platelet Count 276 x10^3/uL (140-400) Sodium Level 139 mmol/L (136-145) Potassium Level 3.5 mmol/L (3.5-5.1) Chloride Level 101 mmol/L (98-107) Carbon Dioxide Level 32 mmol/L (21-32) Anion Gap 6 (6-14) Blood Urea Nitrogen 10 mg/dL (7-20) Creatinine 1.3 mg/dL (0.6-1.0) Estimated GFR (Cockcroft-Gault) 39.4 BUN/Creatinine Ratio 8 (6-20) Glucose Level 114 mg/dL (70-99) Calcium Level 8.0 mg/dL (8.5-10.1) Magnesium Level 1.8 mg/dL (1.8-2.4) Total Bilirubin 0.4 mg/dL (0.2-1.0) Aspartate Amino Transf (AST/SGOT) 33 U/L (15-37) Alanine Aminotransferase (ALT/SGPT) 13 U/L (14-59) Alkaline Phosphatase 40 U/L (46-116) Total Protein 4.7 g/dL (6.4-8.2) Albumin 2.2 g/dL (3.4-5.0) Albumin/Globulin Ratio 0.9 (1.0-1.7) O2 Saturation 97 % (92-99) Arterial Blood pH 7.56 (7.35-7.45) Arterial Blood pCO2 at Patient Temp 29 mmHg (35-46) Arterial Blood pO2 at Patient Temp 104 mmHg (65-108) Arterial Blood HCO3 26 mmol/L (21-28) Arterial Blood Base Excess 4 mmol/L (-3-3) FiO2 40% +5 Glucose (Fingerstick) 138 mg/dL (70-99) Medications Current Medications Fentanyl Citrate 30 ml @ 0 mls/hr CONT PRN IV SEE PROTOCOL; Start 11/02/19 at 02:45; Status Cancel Propofol 100 ml @ 0 mls/hr CONT PRN IV SEE PROTOCOL; Start 11/02/19 at 02:45; Status Cancel Fentanyl Citrate (Fentanyl 2ml Vial) 25 mcg PRN Q1HR PRN IV SEE COMMENTS; Start 11/02/19 at 02:45; Status Cancel Fentanyl Citrate (Fentanyl 2ml Vial) 50 mcg PRN Q1HR PRN IV SEE COMMENTS; Start 11/02/19 at 02:45; Status Cancel Chlorhexidine Gluconate (Peridex) 15 ml BID MM ; Start 11/02/19 at 09:00; Status Cancel Morphine Sulfate (Morphine Sulfate) 2 mg PRN Q1HR PRN IV SEE COMMENTS.; Start 11/02/19 at 02:45; Status Cancel Morphine Sulfate (Morphine Sulfate) 4 mg PRN Q1HR PRN IV SEE COMMENTS.; Start 11/02/19 at 02:45; Status Cancel Midazolam HCl 100 ml @ 0 mls/hr CONT PRN IV SEE PROTOCOL; Start 11/02/19 at 02:45; Status Cancel Diphenhydramine HCl (Benadryl) 25 mg PRN Q15MIN PRN IVP EPS Symptoms; Start 11/02/19 at 02:45; Status Cancel Nicardipine HCl 50 mg/Sodium Chloride 250 ml @ 25 mls/hr CONT PRN IV SEE I/O RECORD Last administered on 11/02/19at 16:45; Start 11/02/19 at 03:15 Propofol 100 ml @ As Directed STK-MED ONCE IV ; Start 11/02/19 at 02:49; Stop 11/02/19 at 03:22; Status DC Propofol 100 ml @ 0 mls/hr CONT PRN IV SEE PROTOCOL Last administered on 11/03/19at 11:18; Start 11/02/19 at 03:30; Stop 11/03/19 at 13:54; Status DC Fentanyl Citrate (Fentanyl 2ml Vial) 25 mcg PRN Q1HR PRN IV SEE COMMENTS; Start 11/02/19 at 03:30 Fentanyl Citrate (Fentanyl 2ml Vial) 50 mcg PRN Q1HR PRN IV SEE COMMENTS; Start 11/02/19 at 03:30 Chlorhexidine Gluconate (Peridex) 15 ml BID MM Last administered on 11/03/19at 09:13; Start 11/02/19 at 09:00 Famotidine (Pepcid Vial) 20 mg DAILY IVP Last administered on 11/02/19at 08:38; Start 11/02/19 at 09:00 Morphine Sulfate (Morphine Sulfate) 2 mg PRN Q1HR PRN IV SEE COMMENTS.; Start 11/02/19 at 03:30 Morphine Sulfate (Morphine Sulfate) 4 mg PRN Q1HR PRN IV SEE COMMENTS.; Start 11/02/19 at 03:30 Potassium Bicarbonate (Potassium Effervescent Tablet) 40 meq 1X ONCE PEG Last administered on 11/02/19at 08:38; Start 11/02/19 at 07:30; Stop 11/02/19 at 07:31; Status DC Potassium Bicarbonate (Potassium Effervescent Tablet) 40 meq 1X ONCE PEG Last administered on 11/02/19at 10:02; Start 11/02/19 at 08:00; Stop 11/02/19 at 08:01; Status DC Potassium Bicarbonate (Potassium Effervescent Tablet) 40 meq 1X ONCE PEG Last administered on 11/02/19 10:41; Start 11/02/19 at 09:00; Stop 11/02/19 at 09:01; Status DC Magnesium Sulfate 50 ml @ 25 mls/hr 1X ONCE IV Last administered on 11/02/19at 08:37; Start 11/02/19 at 07:30; Stop 11/02/19 at 09:29; Status DC Famotidine (Pepcid Vial) 20 mg DAILY IVP ; Start 11/02/19 at 09:00; Status UNV Ceftriaxone Sodium (Rocephin) 1 gm Q24H IVP Last administered on 11/03/19at 0 9:15; Start 11/02/19 at 09:00 Levetiracetam 1000 mg/Dextrose 110 ml @ 440 mls/hr Q12HR IV Last administered on 11/03/19at 09:13; Start 11/02/19 at 11:00; Stop 11/03/19 at 09:32; Status DC Acetaminophen (Tylenol) 650 mg PRN Q6HRS PRN PO PAIN; Start 11/02/19 at 10:15 Atorvastatin Calcium (Lipitor) 10 mg QHS PO Last administered on 11/02/19at 20:56; Start 11/02/19 at 21:00 Carvedilol (Coreg) 3.125 mg BIDWMEALS PO Last administered on 11/03/19at 08:02; Start 11/02/19 at 11:00 Cetirizine HCl (ZyrTEC) 10 mg DAILY PO Last administered on 11/03/19at 09:14; Start 11/02/19 at 11:00 Citalopram Hydrobromide (CeleXA) 15 mg DAILY PO Last administered on 11/03/19at 09:14; Start 11/02/19 at 11:00; Stop 11/03/19 at 13:50; Status DC Clopidogrel Bisulfate (Plavix) 75 mg DAILY PO ; Start 11/02/19 at 11:00 Diclofenac Sodium (Voltaren) 1 carlos BID PRN TP PAIN; Start 11/02/19 at 10:15 Furosemide (Lasix) 20 mg QEVNG PO Last administered on 11/02/19at 18:34; Start 11/02/19 at 18:00 Furosemide (Lasix) 40 mg QAM PO Last administered on 11/03/19at 09:14; Start 11/02/19 at 11:00 Albuterol Sulfate (Ventolin Neb Soln) 2.5 mg PRN Q4HRS PRN NEB SHORTNESS OF BREATH; Start 11/02/19 at 10:30 Latanoprost (Xalatan) 1 drop QHS OU Last administered on 11/02/19at 20:56; Start 11/02/19 at 21:00 Lidocaine (Lidoderm) 1 patch PRN DAILY PRN TP PAIN; Start 11/02/19 at 09:00 Pantoprazole Sodium (Protonix) 20 mg DAILYAC PO ; Start 11/03/19 at 07:30; Status UNV Phenol (Chloraseptic) 1 spray PRN Q6HRS PRN MM SORE THROAT; Start 11/02/19 at 10:15 Piperacillin Sod/ Tazobactam Sod 3.375 gm/Sodium Chloride 50 ml @ 100 mls/hr Q6HRS IV Last administered on 11/03/19at 11:40; Start 11/02/19 at 11:00 Vancomycin HCl (Vanco Per Pharmacy) 1 each PRN DAILY PRN MC SEE COMMENTS Last administered on 11/03/19at 09:23; Start 11/02/19 at 10:30 Vancomycin HCl 1 gm/Sodium Chloride 250 ml @ 250 mls/hr Q24H IV Last administered on 11/02/19at 22:00; Start 11/02/19 at 22:00 Vancomycin HCl (Vancomycin Trough Level) 1 each 1X ONCE MC ; Start 11/03/19 at 21:30; Stop 11/03/19 at 21:31 Levetiracetam 500 mg/Dextrose 105 ml @ 420 mls/hr Q12HR IV ; Start 11/03/19 at 21:00 Magnesium Sulfate 50 ml @ 25 mls/hr 1X ONCE IV Last administered on 11/03/19at 13:33; Start 11/03/19 at 12:00; Stop 11/03/19 at 13:59; Status DC Sertraline HCl (Zoloft) 50 mg DAILY PO ; Start 11/04/19 at 09:00 Losartan Potassium (Cozaar) 25 mg DAILY NG ; Start 11/03/19 at 14:00 Dexmedetomidine HCl 400 mcg/ Sodium Chloride 100 ml @ 0 mls/hr CONT PRN IV PER PROTOCOL Last administered on 11/03/19at 14:36; Start 11/03/19 at 14:00 Sodium Chloride 500 ml @ 500 mls/hr 1X PRN PRN IV SEE COMMENTS; Start 11/03/19 at 14:00 Atropine Sulfate (ATROPINE 0.5mg SYRINGE) 0.5 mg PRN Q5MIN PRN IV SEE COMMENTS; Start 11/03/19 at 14:00 Active Scripts Active Reported Januvia (Sitagliptin Phosphate) 100 Mg Tablet 1 Tab PO DAILY Pantoprazole Sodium (Pantoprazole Sodium) 40 Mg Tablet. 20 Mg PO DAILYAC Glimepiride 1 Mg Tablet 1 Tab PO DAILY Hydrocodone-Apap 5-325 (Hydrocodone Bit/Acetaminophen) 1 Tab Tablet 1 Tab PO PRN Q6HRS PRN Lisinopril 10 Mg Tablet 1 Tab PO DAILY Acetaminophen 500 Mg Tablet 1 Tab PO BID Trazodone Hcl 50 Mg Tablet 0.5 Tab PO QHS Omeprazole 20 Mg Capsule. 1 Cap PO DAILY Novolog (Insulin Aspart) 100 Unit/1 Ml Cartridge 100 Unit SQ QIDACHS Naproxen 500 Mg Tablet 1 Tab PO PRN Q8HRS PRN Lidocaine PATCH (Lidocaine) 1 Each Adh..patch 1 Each TP DAILY REMOVE AFTER 12 HOURS Latanoprost 2.5 Ml Drops 1 Drop EACHEYE QHS Duoneb 0.5-3(2.5) Mg/3 Ml (Albuterol/Ipratropium) 3 Ml Ampul.neb 3 Ml NEB PRN Q4HRS PRN Imodium A-D (Loperamide HCl) 2 Mg Capsule 2 Mg PO PRN PRN Flonase Allergy Relief (Fluticasone Propionate) 9.9 Ml [place].susp 1 Sprays NS PRN Q12HRS PRN Coreg (Carvedilol) 3.125 Mg Tablet 3.125 Mg PO BIDWMEALS Chloraseptic (Phenol) 20 Ml [place] 1 [place] MM PRN Q6HRS PRN Calcium Citrate 250 Mg Tablet 500 Mg PO DAILY Tylenol (Acetaminophen) 325 Mg Tablet 2 Tab PO PRN Q6HRS PRN Atorvastatin Calcium 10 Mg Tablet 1 Tab PO QHS Proair Respiclick (Albuterol Sulfate) 90 Mcg Aer.pow.ba 1 Puff IH PRN Q6HRS PRN Alendronate Sodium 70 Mg Tablet 1 Tab PO WEEKLY Citalopram Hbr (Citalopram Hydrobromide) 10 Mg Tablet 1.5 Tab PO DAILY Cetirizine Hcl 10 Mg Tablet 1 Tab PO DAILY Guaifenesin 600 Mg Tablet.er 600 Mg PO PRN Q8HRS PRN Clopidogrel (Clopidogrel Bisulfate) 75 Mg Tablet 1 Tab PO DAILY Novolog Flexpen (Insulin Aspart) 100 Unit/1 Ml Insuln.pen 0-3 Unit SQ QIDACHS PATIENT SLIDING SCALE. 70-249= 0 UNITS. 250-400= 3UNITS. BEFORE MEALS AND AT BEDTIME GIVE 3 UNITS IF BLOOD SUGAR 250 OR ABOVE. Diclofenac Sodium 100 Gm Gel..gram. 1 Carlos TP DAILY D3-50 (Cholecalciferol (Vitamin D3)) 50,000 Unit Capsule 50,000 Unit PO DAILY Trazodone Hcl 50 Mg Tablet 0.5 Tab PO QHS Reglan (Metoclopramide Hcl) 5 Mg Tablet 5 Mg PO DAILY Protonix (Pantoprazole Sodium) 20 Mg Tablet.dr 1 Tab PO DAILY [place] 5-325 Tablet (Hydrocodone Bit/Acetaminophen) 1 Each Tablet 1 Tab PO Q4HRS Naproxen 500 Mg Tablet 1 Tab PO Q8HRS Lisinopril 2.5 Mg Tablet 1 Tab PO DAILY Lidocaine PATCH (Lidocaine) 1 Each Adh..patch 1 Each TP DAILY REMOVE AFTER 12 HOURS Lasix (Furosemide) 20 Mg Tablet 1 Tab PO DAILY 30 Days Duoneb 0.5-3(2.5) Mg/3 Ml (Albuterol/Ipratropium) 3 Ml Ampul.neb 3 Ml NEB QID Imodium A-D (Loperamide HCl) 2 Mg Capsule 2 Mg PO DAILY Guaifenesin 400 Mg Tablet 400 Mg PO Q8HRS Coreg (Carvedilol) 3.125 Mg Tablet 3.125 Mg PO BID Clopidogrel (Clopidogrel Bisulfate) 75 Mg Tablet 75 Mg PO DAILY Citalopram Hbr (Citalopram Hydrobromide) 10 Mg Tablet 10 Mg PO DAILY Atorvastatin Calcium 10 Mg Tablet 10 Mg PO DAILY Proair Hfa Inhaler (Albuterol Sulfate) 8.5 Gm Hfa.aer.ad 1 Puff INH PRN Q6HRS Acetaminophen 500 Mg Tablet 1 Tab PO PRN Q6HRS Glimepiride 1 Mg Tablet 1 Mg PO DAILY Simvastatin 40 Mg Tablet 40 Mg PO HS Omeprazole 20 Mg Capsule.dr 20 Mg PO DAILY Januvia (Sitagliptin Phosphate) 100 Mg Tablet 100 Mg PO DAILY Vitals/I & O Vital Sign - Last 24 Hours 11/02/19 11/02/19 11/02/19 11/02/19 18:00 18:34 19:00 20:00 Pulse 88 91 88 Resp 16 16 B/P (MAP) 101/36 (57) 121/53 139/55 (83) Pulse Ox 100 100 O2 Delivery Ventilator Ventilator Mechanical Ventilator 11/02/19 11/02/19 11/02/19 11/02/19 20:00 21:00 21:10 22:00 Temp 98.5 98.5 Pulse 82 86 88 Resp 16 16 16 B/P (MAP) 140/60 (86) 151/60 (90) 153/69 (97) Pulse Ox 100 100 100 100 O2 Delivery Ventilator Ventilator Ventilator Ventilator 11/02/19 11/03/19 11/03/19 11/03/19 23:00 00:00 00:00 00:31 Pulse 83 87 Resp 16 16 B/P (MAP) 159/75 (103) 164/70 (101) Pulse Ox 100 100 100 O2 Delivery Ventilator Mechanical Ventilator Ventilator Ventilator 11/03/19 11/03/19 11/03/19 11/03/19 01:00 02:00 03:00 04:00 Pulse 88 89 91 Resp 16 16 16 B/P (MAP) 160/67 (98) 160/68 (98) 172/84 (113) Pulse Ox 100 100 100 O2 Delivery Ventilator Ventilator Ventilator Mechanical Ventilator 11/03/19 11/03/19 11/03/19 11/03/19 04:00 04:40 05:00 06:00 Temp 98.6 98.6 Pulse 85 84 89 Resp 16 16 16 B/P (MAP) 164/68 (100) 154/65 (94) 170/68 (102) Pulse Ox 100 100 100 100 O2 Delivery Ventilator Ventilator Ventilator Ventilator 11/03/19 11/03/19 11/03/19 11/03/19 07:00 08:00 08:00 08:02 Temp 98.7 98.7 Pulse 75 84 84 Resp 17 26 B/P (MAP) 154/80 (104) 161/75 (103) 161/75 Pulse Ox 95 100 O2 Delivery Ventilator Ventilator Mechanical Ventilator 11/03/19 11/03/19 11/03/19 11/03/19 08:15 09:00 10:00 11:00 Pulse 76 76 78 Resp 21 22 21 B/P (MAP) 171/76 (107) 165/70 (101) 165/73 (103) Pulse Ox 100 100 100 100 O2 Delivery Ventilator Ventilator Ventilator Ventilator 11/03/19 11/03/19 11/03/19 11/03/19 11:30 12:00 12:00 13:00 Temp 98.0 98.0 Pulse 78 77 Resp 0 23 B/P (MAP) 156/68 (97) 153/71 (98) Pulse Ox 100 100 100 O2 Delivery Ventilator Mechanical Ventilator Ventilator Ventilator 11/03/19 11/03/19 14:00 15:20 Pulse 82 Resp 21 B/P (MAP) 188/76 (113) Pulse Ox 100 100 O2 Delivery Ventilator Ventilator Intake and Output 11/02/19 11/02/19 11/03/19 15:00 23:00 07:00 Intake Total 160 ml 896 ml 256 ml Output Total 70 ml 30 ml 325 ml Balance 90 ml 866 ml -69 ml Justicifation of Admission Dx: Justifications for Admission: Justification of Admission Dx: Yes Respiratory Failure: Mechanical Ventilation Altered Mental Status: Altered Mental Status Comments: New onset seizure CLARICE CHILDS MD Nov 03, 2019 17:26
[2019-11-03] MEDS: FUROSEMIDE 20 MG TABLET PO SCH (18:35)
[2019-11-03] MEDS: LATANOPROST 0.005% OPHTH SOLUTION 2.5ML BOTTLE. OU SCH (21:00)
[2019-11-03] MEDS: ATORVASTATIN CALCIUM 10 MG TABLET. PO SCH (21:00)
[2019-11-03] MEDS: levETIRAcetam 500 MG in IV DEXTROSE 5% 100ML 100 ML IV SCH (21:45)
[2019-11-03 22:11] LABS: VANC TR 11.7 mcg/mL (10.0-20.0)
[2019-11-03] MEDS: VANCOMYCIN 1 GM in IV NORMAL SALINE 250ML 250 ML IV SCH (22:57)
[2019-11-04] VITALS (23 sets, daily range): BP systolic 119–168; BP diastolic 47–73
[2019-11-04] MEDS: DEXMEDETOMIDINE 400 MCG in IV NORMAL SALINE 100ML 96 ML IV PRN (06:04)
[2019-11-04] MEDS: PIPERACILLIN/TAZOBACTAM 3.375 GM in IV NORMAL SALINE 50ML 50 ML IV SCH ×3 (06:06→17:55)
[2019-11-04 06:28] LABS: HEMATOCRIT 22.4 % (36.0-47.0); HEMOGLOBIN 7.6 g/dL (12.0-15.5); RED BLOOD COUNT 2.5 x10^6/uL (3.50-5.40); RED CELL DISTRIBUTION WIDTH 16.6 % (11.5-14.5); WHITE BLOOD COUNT 8.5 x10^3/uL (4.0-11.0)
[2019-11-04 06:47] LABS: ALBUMIN 1.8 g/dL (3.4-5.0); ALBUMIN/GLOBULIN RATIO 0.6 (1.0-1.7); CALCIUM 8.2 mg/dL (8.5-10.1); CREATININE 1.2 mg/dL (0.6-1.0); GFR 43.2; MAGNESIUM 2.3 mg/dL (1.8-2.4); POTASSIUM 3.6 mmol/L (3.5-5.1); TOTAL BILIRUBIN 0.3 mg/dL (0.2-1.0); TOTAL PROTEIN 4.9 g/dL (6.4-8.2)
[2019-11-04] MEDS: VANCOMYCIN PER PHARMACY MC PRN (06:59)
--- NOTE | 2019-11-04 07:00 | NUR ---
Pharmacy Vancomycin Dosing Note S:Consulted to monitor and dose vancomycin started 11/01/19. O:GUILLERMO JIMENEZ is a 79 year old F with Pneumonia . Height: 5 feet, 4 inches Weight: 63.5 kg [place] Body Weight: 54.70 Adjusted Body Weight: 58.22 Dosing Weight: Actual Other Antibiotics: CTX LABS: Last BUN: 10 Last Creatinine: 1.2 Creatinine Clearance: 31 mL/min Last WBC: 11.6 Last Procalcitonin: - Tmax (past 24 hours): 98.7 Microbiology: 11/01 PENDING I/O: -/575 Drug Levels: Last Trough level: 11.7 on 11/03/19 at 2130 Last dose given 11/02/19 at 2200 Vancomycin Dosing: Loading Dose: x1 Dosing Weight: Actual Target Trough: 15-20 A: Based on: TROUGH AND SCR P: 1. Begin Vancomycin 1000 mg IV q18h 2. Follow up Trough level on 11/06/19 at 0430 3. Pharmacy will continue to monitor, follow and adjust therapy as needed. GILDA EDDY RPH, 11/04/19 0700 Signed: 11/04/19 at 0700 by GILDA EDDY RPH PHA
[2019-11-04] MEDS: CARVEDILOL 3.125 MG TABLET. PO SCH ×2 (08:00→17:00)
[2019-11-04 08:33] LABS: BASE EXCESS ABG 2 mmol/L (-3-3); HCO3 ABG 26 mmol/L (21-28); PCO2 ABG 35 mmHg (35-46); PO2 ABG 108 mmHg (65-108); SAT O2 ABG 98 % (92-99)
[2019-11-04 08:34] LABS: FIO2 ABG 40
[2019-11-04] MEDS: cefTRIAXone IV Push 1 GM VIAL. IVP SCH (08:46)
[2019-11-04] MEDS: CETIRIZINE HCL 10 MG TABLET. PO SCH (08:47)
[2019-11-04] MEDS: FUROSEMIDE 40 MG TABLET. PO SCH (08:47)
[2019-11-04] MEDS: levETIRAcetam 500 MG in IV DEXTROSE 5% 100ML 100 ML IV SCH ×2 (08:47→21:21)
[2019-11-04] MEDS: CHLORHEXIDINE 0.12% 15 ML MOUTHWASH. MM SCH ×2 (08:47→21:20)
[2019-11-04] MEDS: SERTRALINE 50 MG TABLET. PO SCH (08:48)
[2019-11-04] MEDS: LOSARTAN POTASSIUM 25 MG TABLET. NG SCH (08:48)
[2019-11-04] MEDS: CLOPIDOGREL BISULFATE 75 MG TABLET PO SCH (08:48)
[2019-11-04] MEDS: FAMOTIDINE 20 MG/2 ML VIAL IVP SCH (08:49)
--- NOTE | 2019-11-04 10:28 | PDOC ---
PROGRESS NOTES Assessment Respiratory failure Seizure, no evidence of recurrence Aspiration pneumonia, severe hypertension, hypokalemia (resolved), elevated troponin, elevated BNP Plan Continue levetiracetam IV Consider EEG and MRI when ruled out for COVID, EEG won't be helpful while the patient is on sedation. Treatment of medical problems. Subjective None Objective Vital Signs Date Time Temp Pulse Resp B/P (MAP) Pulse Ox O2 Delivery O2 Flow Rate FiO2 11/04/19 10:00 56 12 137/49 (78) 100 Ventilator 11/04/19 08:00 98.9 98.9 Intake and Output 11/04/19 07:00 Intake Total 1204 ml Output Total 2575 ml Balance -1371 ml Intake IV Total 904 ml Tube Feeding 300 ml Output Urine Total 2575 ml PHYSICAL EXAM Sedated, intubated PERRL. EOMI. CN: no focal findings. Muscle tone: normal. Muscle strength: minimal response to pain DTR: 1+ Plantar reflex: silent Gait: not examined Sensory exam: not cooperative. Cerebellar: not cooperative Review of Relevant I have reviewed the following items regina (where applicable) has been applied. Labs Laboratory Tests Test 11/02/19 13:30 11/03/19 06:00 11/03/19 08:15 11/03/19 13:37 Sodium Level 139 mmol/L (136-145) 139 mmol/L (136-145) Potassium Level 4.0 mmol/L (3.5-5.1) 3.5 mmol/L (3.5-5.1) Chloride Level 99 mmol/L (98-107) 101 mmol/L (98-107) Carbon Dioxide Level 25 mmol/L (21-32) 32 mmol/L (21-32) Anion Gap 15 (6-14) 6 (6-14) Blood Urea Nitrogen 10 mg/dL (7-20) 10 mg/dL (7-20) Creatinine 1.1 mg/dL (0.6-1.0) 1.3 mg/dL (0.6-1.0) Estimated GFR (Cockcroft-Gault) 47.8 39.4 Glucose Level 149 mg/dL (70-99) 114 mg/dL (70-99) Calcium Level 8.2 mg/dL (8.5-10.1) 8.0 mg/dL (8.5-10.1) White Blood Count 11.6 x10^3/uL (4.0-11.0) Red Blood Count 2.96 x10^6/uL (3.50-5.40) Hemoglobin 8.9 g/dL (12.0-15.5) Hematocrit 26.1 % (36.0-47.0) Mean Corpuscular Volume 88 fL (79-100) Mean Corpuscular Hemoglobin 30 pg (25-35) Mean Corpuscular Hemoglobin Concent 34 g/dL (31-37) Red Cell Distribution Width 16.3 % (11.5-14.5) Platelet Count 276 x10^3/uL (140-400) BUN/Creatinine Ratio 8 (6-20) Magnesium Level 1.8 mg/dL (1.8-2.4) Total Bilirubin 0.4 mg/dL (0.2-1.0) Aspartate Amino Transf (AST/SGOT) 33 U/L (15-37) Alanine Aminotransferase (ALT/SGPT) 13 U/L (14-59) Alkaline Phosphatase 40 U/L (46-116) Total Protein 4.7 g/dL (6.4-8.2) Albumin 2.2 g/dL (3.4-5.0) Albumin/Globulin Ratio 0.9 (1.0-1.7) O2 Saturation 97 % (92-99) Arterial Blood pH 7.56 (7.35-7.45) Arterial Blood pCO2 at Patient Temp 29 mmHg (35-46) Arterial Blood pO2 at Patient Temp 104 mmHg (65-108) Arterial Blood HCO3 26 mmol/L (21-28) Arterial Blood Base Excess 4 mmol/L (-3-3) FiO2 40% +5 Glucose (Fingerstick) 138 mg/dL (70-99) Test 11/03/19 21:50 11/04/19 05:45 11/04/19 07:30 Vancomycin Level Trough 11.7 mcg/mL (10.0-20.0) Vancomycin Last Dose Date 11/02/19 Vancomycin Last Dose Time 2200 White Blood Count 8.5 x10^3/uL (4.0-11.0) Red Blood Count 2.50 x10^6/uL (3.50-5.40) Hemoglobin 7.6 g/dL (12.0-15.5) Hematocrit 22.4 % (36.0-47.0) Mean Corpuscular Volume 89 fL (79-100) Mean Corpuscular Hemoglobin 30 pg (25-35) Mean Corpuscular Hemoglobin Concent 34 g/dL (31-37) Red Cell Distribution Width 16.6 % (11.5-14.5) Platelet Count 227 x10^3/uL (140-400) Sodium Level 138 mmol/L (136-145) Potassium Level 3.6 mmol/L (3.5-5.1) Chloride Level 104 mmol/L (98-107) Carbon Dioxide Level 28 mmol/L (21-32) Anion Gap 6 (6-14) Blood Urea Nitrogen 13 mg/dL (7-20) Creatinine 1.2 mg/dL (0.6-1.0) Estimated GFR (Cockcroft-Gault) 43.2 BUN/Creatinine Ratio 11 (6-20) Glucose Level 138 mg/dL (70-99) Calcium Level 8.2 mg/dL (8.5-10.1) Magnesium Level 2.3 mg/dL (1.8-2.4) Total Bilirubin 0.3 mg/dL (0.2-1.0) Aspartate Amino Transf (AST/SGOT) 23 U/L (15-37) Alanine Aminotransferase (ALT/SGPT) 9 U/L (14-59) Alkaline Phosphatase 41 U/L (46-116) Total Protein 4.9 g/dL (6.4-8.2) Albumin 1.8 g/dL (3.4-5.0) Albumin/Globulin Ratio 0.6 (1.0-1.7) O2 Saturation 98 % (92-99) Arterial Blood pH 7.48 (7.35-7.45) Arterial Blood pCO2 at Patient Temp 35 mmHg (35-46) Arterial Blood pO2 at Patient Temp 108 mmHg (65-108) Arterial Blood HCO3 26 mmol/L (21-28) Arterial Blood Base Excess 2 mmol/L (-3-3) FiO2 40 Laboratory Tests Test 11/03/19 13:37 11/03/19 21:50 11/04/19 05:45 11/04/19 07:30 Glucose (Fingerstick) 138 mg/dL (70-99) Vancomycin Level Trough 11.7 mcg/mL (10.0-20.0) Vancomycin Last Dose Date 11/02/19 Vancomycin Last Dose Time 2200 White Blood Count 8.5 x10^3/uL (4.0-11.0) Red Blood Count 2.50 x10^6/uL (3.50-5.40) Hemoglobin 7.6 g/dL (12.0-15.5) Hematocrit 22.4 % (36.0-47.0) Mean Corpuscular Volume 89 fL (79-100) Mean Corpuscular Hemoglobin 30 pg (25-35) Mean Corpuscular Hemoglobin Concent 34 g/dL (31-37) Red Cell Distribution Width 16.6 % (11.5-14.5) Platelet Count 227 x10^3/uL (140-400) Sodium Level 138 mmol/L (136-145) Potassium Level 3.6 mmol/L (3.5-5.1) Chloride Level 104 mmol/L (98-107) Carbon Dioxide Level 28 mmol/L (21-32) Anion Gap 6 (6-14) Blood Urea Nitrogen 13 mg/dL (7-20) Creatinine 1.2 mg/dL (0.6-1.0) Estimated GFR (Cockcroft-Gault) 43.2 BUN/Creatinine Ratio 11 (6-20) Glucose Level 138 mg/dL (70-99) Calcium Level 8.2 mg/dL (8.5-10.1) Magnesium Level 2.3 mg/dL (1.8-2.4) Total Bilirubin 0.3 mg/dL (0.2-1.0) Aspartate Amino Transf (AST/SGOT) 23 U/L (15-37) Alanine Aminotransferase (ALT/SGPT) 9 U/L (14-59) Alkaline Phosphatase 41 U/L (46-116) Total Protein 4.9 g/dL (6.4-8.2) Albumin 1.8 g/dL (3.4-5.0) Albumin/Globulin Ratio 0.6 (1.0-1.7) O2 Saturation 98 % (92-99) Arterial Blood pH 7.48 (7.35-7.45) Arterial Blood pCO2 at Patient Temp 35 mmHg (35-46) Arterial Blood pO2 at Patient Temp 108 mmHg (65-108) Arterial Blood HCO3 26 mmol/L (21-28) Arterial Blood Base Excess 2 mmol/L (-3-3) FiO2 40 Medications Current Medications Fentanyl Citrate 30 ml @ 0 mls/hr CONT PRN IV SEE PROTOCOL; Start 11/02/19 at 02:45; Status Cancel Propofol 100 ml @ 0 mls/hr CONT PRN IV SEE PROTOCOL; Start 11/02/19 at 02:45; Status Cancel Fentanyl Citrate (Fentanyl 2ml Vial) 25 mcg PRN Q1HR PRN IV SEE COMMENTS; Start 11/02/19 at 02:45; Status Cancel Fentanyl Citrate (Fentanyl 2ml Vial) 50 mcg PRN Q1HR PRN IV SEE COMMENTS; Start 11/02/19 at 02:45; Status Cancel Chlorhexidine Gluconate (Peridex) 15 ml BID MM ; Start 11/02/19 at 09:00; Status Cancel Morphine Sulfate (Morphine Sulfate) 2 mg PRN Q1HR PRN IV SEE COMMENTS.; Start 11/02/19 at 02:45; Status Cancel Morphine Sulfate (Morphine Sulfate) 4 mg PRN Q1HR PRN IV SEE COMMENTS.; Start 11/02/19 at 02:45; Status Cancel Midazolam HCl 100 ml @ 0 mls/hr CONT PRN IV SEE PROTOCOL; Start 11/02/19 at 02:45; Status Cancel Diphenhydramine HCl (Benadryl) 25 mg PRN Q15MIN PRN IVP EPS Symptoms; Start 11/02/19 at 02:45; Status Cancel Nicardipine HCl 50 mg/Sodium Chloride 250 ml @ 25 mls/hr CONT PRN IV SEE I/O RECORD Last administered on 11/02/19at 16:45; Start 11/02/19 at 03:15 Propofol 100 ml @ As Directed STK-MED ONCE IV ; Start 11/02/19 at 02:49; Stop 11/02/19 at 03:22; Status DC Propofol 100 ml @ 0 mls/hr CONT PRN IV SEE PROTOCOL Last administered on 11/03/19at 11:18; Start 11/02/19 at 03:30; Stop 11/03/19 at 13:54; Status DC Fentanyl Citrate (Fentanyl 2ml Vial) 25 mcg PRN Q1HR PRN IV SEE COMMENTS; Start 11/02/19 at 03:30 Fentanyl Citrate (Fentanyl 2ml Vial) 50 mcg PRN Q1HR PRN IV SEE COMMENTS; Start 11/02/19 at 03:30 Chlorhexidine Gluconate (Peridex) 15 ml BID MM Last administered on 11/04/19at 08:47; Start 11/02/19 at 09:00 Famotidine (Pepcid Vial) 20 mg DAILY IVP Last administered on 11/04/19at 08:49; Start 11/02/19 at 09:00 Morphine Sulfate (Morphine Sulfate) 2 mg PRN Q1HR PRN IV SEE COMMENTS.; Start 11/02/19 at 03:30 Morphine Sulfate (Morphine Sulfate) 4 mg PRN Q1HR PRN IV SEE COMMENTS.; Start 11/02/19 at 03:30 Potassium Bicarbonate (Potassium Effervescent Tablet) 40 meq 1X ONCE PEG Last administered on 11/02/19at 08:38; Start 11/02/19 at 07:30; Stop 11/02/19 at 07:31; Status DC Potassium Bicarbonate (Potassium Effervescent Tablet) 40 meq 1X ONCE PEG Last administered on 11/02/19at 10:02; Start 11/02/19 at 08:00; Stop 11/02/19 at 08:01; Status DC Potassium Bicarbonate (Potassium Effervescent Tablet) 40 meq 1X ONCE PEG Last administered on 11/02/19at 10:41; Start 11/02/19 at 09:00; Stop 11/02/19 at 09:01; Status DC Magnesium Sulfate 50 ml @ 25 mls/hr 1X ONCE IV Last administered on 11/02/19at 08:37; Start 11/02/19 at 07:30; Stop 11/02/19 at 09:29; Status DC Famotidine (Pepcid Vial) 20 mg DAILY IVP ; Start 11/02/19 at 09:00; Status UNV Ceftriaxone Sodium (Rocephin) 1 gm Q24H IVP Last administered on 11/04/19at 08:46; Start 11/02/19 at 09:00 Levetiracetam 1000 mg/Dextrose 110 ml @ 440 mls/hr Q12HR IV Last administered on 11/03/19at 09:13; Start 11/02/19 at 11:00; Stop 11/03/19 at 09:32; Status DC Acetaminophen (Tylenol) 650 mg PRN Q6HRS PRN PO PAIN; Start 11/02/19 at 10:15 Atorvastatin Calcium (Lipitor) 10 mg QHS PO Last administered on 11/03/19 21:00; Start 11/02/19 at 21:00 Carvedilol (Coreg) 3.125 mg BIDWMEALS PO Last administered on 11/03/19at 08:02; Start 11/02/19 at 11:00 Cetirizine HCl (ZyrTEC) 10 mg DAILY PO Last administered on 11/04/19at 08:47; Start 11/02/19 at 11:00 Citalopram Hydrobromide (CeleXA) 15 mg DAILY PO Last administered on 11/03/19 09:14; Start 11/02/19 at 11:00; Stop 11/03/19 at 13:50; Status DC Clopidogrel Bisulfate (Plavix) 75 mg DAILY PO Last administered on 11/04/19 08:48; Start 11/02/19 at 11:00 Diclofenac Sodium (Voltaren) 1 carlos BID PRN TP PAIN; Start 11/02/19 at 10:15 Furosemide (Lasix) 20 mg QEVNG PO Last administered on 11/03/19at 18:35; Start 11/02/19 at 18:00 Furosemide (Lasix) 40 mg QAM PO Last administered on 11/04/19 08:47; Start at 11:00 Albuterol Sulfate (Ventolin Neb Soln) 2.5 mg PRN Q4HRS PRN NEB SHORTNESS OF BREATH; Start 11/02/19 at 10:30 Latanoprost (Xalatan) 1 drop QHS OU Last administered on 11/03/19at 21:00; Start 11/02/19 at 21:00 Lidocaine (Lidoderm) 1 patch PRN DAILY PRN TP PAIN; Start 11/02/19 at 09:00 Pantoprazole Sodium (Protonix) 20 mg DAILYAC PO ; Start 11/03/19 at 07:30; Status UNV Phenol (Chloraseptic) 1 spray PRN Q6HRS PRN MM SORE THROAT; Start 11/02/19 at 10:15 Piperacillin Sod/ Tazobactam Sod 3.375 gm/Sodium Chloride 50 ml @ 100 mls/hr Q6HRS IV Last administered on 11/04/19at 06:06; Start 11/02/19 at 11:00 Vancomycin HCl (Vanco Per Pharmacy) 1 each PRN DAILY PRN MC SEE COMMENTS Last administered on 11/04/19at 06:59; Start 11/02/19 at 10:30 Vancomycin HCl 1 gm/Sodium Chloride 250 ml @ 250 mls/hr Q24H IV Last administered on 11/03/19at 22:57; Start 11/02/19 at 22:00; Stop 11/04/19 at 07:00; Status DC Vancomycin HCl (Vancomycin Trough Level) 1 each 1X ONCE MC Last administered on 11/03/19at 21:30; Start 11/03/19 at 21:30; Stop 11/03/19 at 21:31; Status DC Levetiracetam 500 mg/Dextrose 105 ml @ 420 mls/hr Q12HR IV Last administered on 11/04/19at 08:47; Start 11/03/19 at 21:00 Magnesium Sulfate 50 ml @ 25 mls/hr 1X ONCE IV Last administered on 11/03/19at 13:33; Start 11/03/19 at 12:00; Stop 11/03/19 at 13:59; Status DC Sertraline HCl (Zoloft) 50 mg DAILY PO Last administered on 11/04/19at 08:48; Start 11/04/19 at 09:00 Losartan Potassium (Cozaar) 25 mg DAILY NG Last administered on 11/04/19at 08:48; Start 11/03/19 at 14:00 Dexmedetomidine HCl 400 mcg/ Sodium Chloride 100 ml @ 0 mls/hr CONT PRN IV PER PROTOCOL Last administered on 11/04/19at 06:04; Start 11/03/19 at 14:00 Sodium Chloride 500 ml @ 500 mls/hr 1X PRN PRN IV SEE COMMENTS; Start 11/03/19 at 14:00 Atropine Sulfate (ATROPINE 0.5mg SYRINGE) 0.5 mg PRN Q5MIN PRN IV SEE COMMENTS; Start 11/03/19 at 14:00 Vancomycin HCl 1 gm/Sodium Chloride 250 ml @ 250 mls/hr Q18H IV ; Start 11/04/19 at 17:00 Vancomycin HCl (Vancomycin Trough Level) 1 each 1X ONCE MC ; Start 11/06/19 at 04:30; Stop 11/06/19 at 04:31 Active Scripts Active Reported Januvia (Sitagliptin Phosphate) 100 Mg Tablet 1 Tab PO DAILY Pantoprazole Sodium (Pantoprazole Sodium) 40 Mg Tablet.dr 20 Mg PO DAILYAC Glimepiride 1 Mg Tablet 1 Tab PO DAILY Hydrocodone-Apap 5-325 (Hydrocodone Bit/Acetaminophen) 1 Tab Tablet 1 Tab PO PRN Q6HRS PRN Lisinopril 10 Mg Tablet 1 Tab PO DAILY Acetaminophen 500 Mg Tablet 1 Tab PO BID Trazodone Hcl 50 Mg Tablet 0.5 Tab PO QHS Omeprazole 20 Mg Capsule.dr 1 Cap PO DAILY Novolog (Insulin Aspart) 100 Unit/1 Ml Cartridge 100 Unit SQ QIDACHS Naproxen 500 Mg Tablet 1 Tab PO PRN Q8HRS PRN Lidocaine PATCH (Lidocaine) 1 Each Adh..patch 1 Each TP DAILY REMOVE AFTER 12 HOURS Latanoprost 2.5 Ml Drops 1 Drop EACHEYE QHS Duoneb 0.5-3(2.5) Mg/3 Ml (Albuterol/Ipratropium) 3 Ml Ampul.neb 3 Ml NEB PRN Q4HRS PRN Imodium A-D (Loperamide HCl) 2 Mg Capsule 2 Mg PO PRN PRN Flonase Allergy Relief (Fluticasone Propionate) 9.9 Ml [place].susp 1 Sprays NS PRN Q12HRS PRN Coreg (Carvedilol) 3.125 Mg Tablet 3.125 Mg PO BIDWMEALS Chloraseptic (Phenol) 20 Ml [place] 1 [place] MM PRN Q6HRS PRN Calcium Citrate 250 Mg Tablet 500 Mg PO DAILY Tylenol (Acetaminophen) 325 Mg Tablet 2 Tab PO PRN Q6HRS PRN Atorvastatin Calcium 10 Mg Tablet 1 Tab PO QHS Proair Respiclick (Albuterol Sulfate) 90 Mcg Aer.pow.ba 1 Puff IH PRN Q6HRS PRN Alendronate Sodium 70 Mg Tablet 1 Tab PO WEEKLY Citalopram Hbr (Citalopram Hydrobromide) 10 Mg Tablet 1.5 Tab PO DAILY Cetirizine Hcl 10 Mg Tablet 1 Tab PO DAILY Guaifenesin 600 Mg Tablet.er 600 Mg PO PRN Q8HRS PRN Clopidogrel (Clopidogrel Bisulfate) 75 Mg Tablet 1 Tab PO DAILY Novolog Flexpen (Insulin Aspart) 100 Unit/1 Ml Insuln.pen 0-3 Unit SQ QIDACHS PATIENT SLIDING SCALE. 70-249= 0 UNITS. 250-400= 3UNITS. BEFORE MEALS AND AT BEDTIME GIVE 3 UNITS IF BLOOD SUGAR 250 OR ABOVE. Diclofenac Sodium 100 Gm Gel..gram. 1 [place] TP DAILY D3-50 (Cholecalciferol (Vitamin D3)) 50,000 Unit Capsule 50,000 Unit PO DAILY Trazodone Hcl 50 Mg Tablet 0.5 Tab PO QHS Reglan (Metoclopramide Hcl) 5 Mg Tablet 5 Mg PO DAILY Protonix (Pantoprazole Sodium) 20 Mg Tablet.dr 1 Tab PO DAILY [place] 5-325 Tablet (Hydrocodone Bit/Acetaminophen) 1 Each Tablet 1 Tab PO Q4HRS Naproxen 500 Mg Tablet 1 Tab PO Q8HRS Lisinopril 2.5 Mg Tablet 1 Tab PO DAILY Lidocaine PATCH (Lidocaine) 1 Each Adh..patch 1 Each TP DAILY REMOVE AFTER 12 HOURS Lasix (Furosemide) 20 Mg Tablet 1 Tab PO DAILY 30 Days Duoneb 0.5-3(2.5) Mg/3 Ml (Albuterol/Ipratropium) 3 Ml Ampul.neb 3 Ml NEB QID Imodium A-D (Loperamide HCl) 2 Mg Capsule 2 Mg PO DAILY Guaifenesin 400 Mg Tablet 400 Mg PO Q8HRS Coreg (Carvedilol) 3.125 Mg Tablet 3.125 Mg PO BID Clopidogrel (Clopidogrel Bisulfate) 75 Mg Tablet 75 Mg PO DAILY Citalopram Hbr (Citalopram Hydrobromide) 10 Mg Tablet 10 Mg PO DAILY Atorvastatin Calcium 10 Mg Tablet 10 Mg PO DAILY Proair Hfa Inhaler (Albuterol Sulfate) 8.5 Gm Hfa.aer.ad 1 Puff INH PRN Q6HRS Acetaminophen 500 Mg Tablet 1 Tab PO PRN Q6HRS Glimepiride 1 Mg Tablet 1 Mg PO DAILY Simvastatin 40 Mg Tablet 40 Mg PO HS Omeprazole 20 Mg Capsule.dr 20 Mg PO DAILY Januvia (Sitagliptin Phosphate) 100 Mg Tablet 100 Mg PO DAILY Vitals/I & O Vital Sign - Last 24 Hours 11/03/19 11/03/19 11/03/19 11/03/19 11:00 11:30 12:00 12:00 Temp 98.0 98.0 Pulse 78 78 Resp 21 0 B/P (MAP) 165/73 (103) 156/68 (97) Pulse Ox 100 100 100 O2 Delivery Ventilator Ventilator Mechanical Ventilator Ventilator 11/03/19 11/03/19 11/03/19 11/03/19 13:00 14:00 14:00 15:00 Pulse 77 62 82 84 Resp 23 21 21 B/P (MAP) 153/71 (98) 101/53 188/76 (113) 172/81 (111) Pulse Ox 100 100 100 O2 Delivery Ventilator Ventilator Ventilator 11/03/19 11/03/19 11/03/19 11/03/19 15:20 16:00 16:00 17:00 Temp 98.1 98.1 Pulse 78 62 Resp 21 B/P (MAP) 182/79 (113) 95/43 Pulse Ox 100 100 O2 Delivery Ventilator Ventilator Mechanical Ventilator 11/03/19 11/03/19 11/03/19 11/03/19 17:00 18:00 19:00 20:00 Temp 98.3 98.3 Pulse 65 88 60 61 Resp 22 15 20 18 B/P (MAP) 115/48 (70) 114/76 (89) 113/48 (69) 110/55 (73) Pulse Ox 100 100 100 100 O2 Delivery Ventilator Ventilator Ventilator Ventilator 11/03/19 11/03/19 11/03/19 11/03/19 20:00 20:40 21:00 22:00 Pulse 62 62 Resp 22 19 B/P (MAP) 113/52 (72) 109/45 (66) Pulse Ox 100 100 100 O2 Delivery Mechanical Ventilator Ventilator Ventilator Ventilator 11/03/19 11/03/19 11/03/19 11/04/19 23:00 23:39 23:59 00:00 Temp 98.3 98.3 Pulse 62 68 Resp 12 14 B/P (MAP) 102/49 (66) 116/47 (70) Pulse Ox 100 98 O2 Delivery Ventilator Mechanical Ventilator Ventilator Mechanical Ventilator 11/04/19 11/04/19 11/04/19 11/04/19 00:15 01:00 02:00 03:00 Pulse 53 55 56 Resp 12 12 13 B/P (MAP) 125/57 (79) 128/51 (76) 129/53 (78) Pulse Ox 100 100 100 100 O2 Delivery Ventilator Ventilator Ventilator Ventilator 11/04/19 11/04/19 11/04/19 11/04/19 04:00 04:00 04:15 05:00 Temp 98.2 98.2 Pulse 57 55 Resp 11 11 B/P (MAP) 138/57 (84) 133/51 (78) Pulse Ox 100 100 100 O2 Delivery Ventilator Mechanical Ventilator Ventilator Ventilator 11/04/19 11/04/19 11/04/19 11/04/19 06:00 07:00 07:30 08:00 Pulse 56 56 Resp 11 12 B/P (MAP) 121/58 (79) 119/51 (73) Pulse Ox 100 100 100 O2 Delivery Ventilator Ventilator Ventilator Mechanical Ventilator 11/04/19 11/04/19 11/04/19 11/04/19 08:00 08:00 08:48 09:00 Temp 98.9 98.9 Pulse 55 54 54 54 Resp 12 17 B/P (MAP) 144/65 (91) 138/63 140/63 (88) Pulse Ox 100 100 O2 Delivery Ventilator Ventilator 11/04/19 10:00 Pulse 56 Resp 12 B/P (MAP) 137/49 (78) Pulse Ox 100 O2 Delivery Ventilator Intake and Output 11/03/19 11/03/19 11/04/19 15:00 23:00 07:00 Intake Total 551 ml 100 ml 553 ml Output Total 900 ml 960 ml 715 ml Balance -349 ml -860 ml -162 ml Justicifation of Admission Dx: Justifications for Admission: Justification of Admission Dx: Yes Respiratory Failure: Mechanical Ventilation Altered Mental Status: Altered Mental Status FERNANDO TOSCANO MD Nov 04, 2019 10:28
--- NOTE | 2019-11-04 10:35 | PDOC ---
PULMONARY PROGRESS NOTES Subjective on vent, sedated , off propofol, no sz, started on keppra by neurology, small ett secretion, has had episodes of torsade, none in 24 hr Vitals Vital Signs Date Time Temp Pulse Resp B/P (MAP) Pulse Ox O2 Delivery O2 Flow Rate FiO2 11/04/19 10:00 56 12 137/49 (78) 100 Ventilator 11/04/19 08:00 98.9 98.9 Comments ros unable to obtain on vent sedated on vent sedated appears comfortable no paradoxical abd motion ekg nsr no edema no rash Labs Laboratory Tests Test 11/02/19 13:30 11/03/19 06:00 11/03/19 08:15 11/03/19 13:37 Sodium Level 139 mmol/L (136-145) 139 mmol/L (136-145) Potassium Level 4.0 mmol/L (3.5-5.1) 3.5 mmol/L (3.5-5.1) Chloride Level 99 mmol/L (98-107) 101 mmol/L (98-107) Carbon Dioxide Level 25 mmol/L (21-32) 32 mmol/L (21-32) Anion Gap 15 (6-14) 6 (6-14) Blood Urea Nitrogen 10 mg/dL (7-20) 10 mg/dL (7-20) Creatinine 1.1 mg/dL (0.6-1.0) 1.3 mg/dL (0.6-1.0) Estimated GFR (Cockcroft-Gault) 47.8 39.4 Glucose Level 149 mg/dL (70-99) 114 mg/dL (70-99) Calcium Level 8.2 mg/dL (8.5-10.1) 8.0 mg/dL (8.5-10.1) White Blood Count 11.6 x10^3/uL (4.0-11.0) Red Blood Count 2.96 x10^6/uL (3.50-5.40) Hemoglobin 8.9 g/dL (12.0-15.5) Hematocrit 26.1 % (36.0-47.0) Mean Corpuscular Volume 88 fL (79-100) Mean Corpuscular Hemoglobin 30 pg (25-35) Mean Corpuscular Hemoglobin Concent 34 g/dL (31-37) Red Cell Distribution Width 16.3 % (11.5-14.5) Platelet Count 276 x10^3/uL (140-400) BUN/Creatinine Ratio 8 (6-20) Magnesium Level 1.8 mg/dL (1.8-2.4) Total Bilirubin 0.4 mg/dL (0.2-1.0) Aspartate Amino Transf (AST/SGOT) 33 U/L (15-37) Alanine Aminotransferase (ALT/SGPT) 13 U/L (14-59) Alkaline Phosphatase 40 U/L (46-116) Total Protein 4.7 g/dL (6.4-8.2) Albumin 2.2 g/dL (3.4-5.0) Albumin/Globulin Ratio 0.9 (1.0-1.7) O2 Saturation 97 % (92-99) Arterial Blood pH 7.56 (7.35-7.45) Arterial Blood pCO2 at Patient Temp 29 mmHg (35-46) Arterial Blood pO2 at Patient Temp 104 mmHg (65-108) Arterial Blood HCO3 26 mmol/L (21-28) Arterial Blood Base Excess 4 mmol/L (-3-3) FiO2 40% +5 Glucose (Fingerstick) 138 mg/dL (70-99) Test 11/03/19 21:50 11/04/19 05:45 11/04/19 07:30 Vancomycin Level Trough 11.7 mcg/mL (10.0-20.0) Vancomycin Last Dose Date 11/02/19 Vancomycin Last Dose Time 2200 White Blood Count 8.5 x10^3/uL (4.0-11.0) Red Blood Count 2.50 x10^6/uL (3.50-5.40) Hemoglobin 7.6 g/dL (12.0-15.5) Hematocrit 22.4 % (36.0-47.0) Mean Corpuscular Volume 89 fL (79-100) Mean Corpuscular Hemoglobin 30 pg (25-35) Mean Corpuscular Hemoglobin Concent 34 g/dL (31-37) Red Cell Distribution Width 16.6 % (11.5-14.5) Platelet Count 227 x10^3/uL (140-400) Sodium Level 138 mmol/L (136-145) Potassium Level 3.6 mmol/L (3.5-5.1) Chloride Level 104 mmol/L (98-107) Carbon Dioxide Level 28 mmol/L (21-32) Anion Gap 6 (6-14) Blood Urea Nitrogen 13 mg/dL (7-20) Creatinine 1.2 mg/dL (0.6-1.0) Estimated GFR (Cockcroft-Gault) 43.2 BUN/Creatinine Ratio 11 (6-20) Glucose Level 138 mg/dL (70-99) Calcium Level 8.2 mg/dL (8.5-10.1) Magnesium Level 2.3 mg/dL (1.8-2.4) Total Bilirubin 0.3 mg/dL (0.2-1.0) Aspartate Amino Transf (AST/SGOT) 23 U/L (15-37) Alanine Aminotransferase (ALT/SGPT) 9 U/L (14-59) Alkaline Phosphatase 41 U/L (46-116) Total Protein 4.9 g/dL (6.4-8.2) Albumin 1.8 g/dL (3.4-5.0) Albumin/Globulin Ratio 0.6 (1.0-1.7) O2 Saturation 98 % (92-99) Arterial Blood pH 7.48 (7.35-7.45) Arterial Blood pCO2 at Patient Temp 35 mmHg (35-46) Arterial Blood pO2 at Patient Temp 108 mmHg (65-108) Arterial Blood HCO3 26 mmol/L (21-28) Arterial Blood Base Excess 2 mmol/L (-3-3) FiO2 40 Laboratory Tests Test 11/03/19 13:37 11/03/19 21:50 11/04/19 05:45 11/04/19 07:30 Glucose (Fingerstick) 138 mg/dL (70-99) Vancomycin Level Trough 11.7 mcg/mL (10.0-20.0) Vancomycin Last Dose Date 11/02/19 Vancomycin Last Dose Time 2200 White Blood Count 8.5 x10^3/uL (4.0-11.0) Red Blood Count 2.50 x10^6/uL (3.50-5.40) Hemoglobin 7.6 g/dL (12.0-15.5) Hematocrit 22.4 % (36.0-47.0) Mean Corpuscular Volume 89 fL (79-100) Mean Corpuscular Hemoglobin 30 pg (25-35) Mean Corpuscular Hemoglobin Concent 34 g/dL (31-37) Red Cell Distribution Width 16.6 % (11.5-14.5) Platelet Count 227 x10^3/uL (140-400) Sodium Level 138 mmol/L (136-145) Potassium Level 3.6 mmol/L (3.5-5.1) Chloride Level 104 mmol/L (98-107) Carbon Dioxide Level 28 mmol/L (21-32) Anion Gap 6 (6-14) Blood Urea Nitrogen 13 mg/dL (7-20) Creatinine 1.2 mg/dL (0.6-1.0) Estimated GFR (Cockcroft-Gault) 43.2 BUN/Creatinine Ratio 11 (6-20) Glucose Level 138 mg/dL (70-99) Calcium Level 8.2 mg/dL (8.5-10.1) Magnesium Level 2.3 mg/dL (1.8-2.4) Total Bilirubin 0.3 mg/dL (0.2-1.0) Aspartate Amino Transf (AST/SGOT) 23 U/L (15-37) Alanine Aminotransferase (ALT/SGPT) 9 U/L (14-59) Alkaline Phosphatase 41 U/L (46-116) Total Protein 4.9 g/dL (6.4-8.2) Albumin 1.8 g/dL (3.4-5.0) Albumin/Globulin Ratio 0.6 (1.0-1.7) O2 Saturation 98 % (92-99) Arterial Blood pH 7.48 (7.35-7.45) Arterial Blood pCO2 at Patient Temp 35 mmHg (35-46) Arterial Blood pO2 at Patient Temp 108 mmHg (65-108) Arterial Blood HCO3 26 mmol/L (21-28) Arterial Blood Base Excess 2 mmol/L (-3-3) FiO2 40 Medications Active Scripts Medications Dose Route/Sig Max Daily Dose Days Date Category Dose Instructions Paxtonuvia (Sitagliptin Phosphate) 100 Mg Tablet 1 Tab PO DAILY 11/02/19 Reported Pantoprazole Sodium (Pantoprazole Sodium) 40 Mg Tablet.dr 20 Mg PO DAILYAC 11/02/19 Reported Glimepiride 1 Mg Tablet 1 Tab PO DAILY 11/02/19 Reported Hydrocodone-Apap 5-325 (Hydrocodone Bit/Acetaminophen) 1 Tab Tablet 1 Tab PO PRN Q6HRS PRN 11/02/19 Reported Lisinopril 10 Mg Tablet 1 Tab PO DAILY 11/02/19 Reported Acetaminophen 500 Mg Tablet 1 Tab PO BID 11/30/18 Reported Trazodone Hcl 50 Mg Tablet 0.5 Tab PO QHS 11/30/18 Reported Omeprazole 20 Mg Capsule.dr 1 Cap PO DAILY 11/30/18 Reported Novolog (Insulin Aspart) 100 Unit/1 Ml Cartridge 100 Unit SQ QIDACHS 11/30/18 Reported Naproxen 500 Mg Tablet 1 Tab PO PRN Q8HRS PRN 11/30/18 Reported Lidocaine PATCH (Lidocaine) 1 Each Adh..patch 1 Each TP DAILY 11/30/18 Reported REMOVE AFTER 12 HOURS Latanoprost 2.5 Ml Drops 1 Drop EACHEYE QHS 11/30/18 Reported Duoneb 0.5-3(2.5) Mg/3 Ml (Albuterol/Ipratropium) 3 Ml Ampul.neb 3 Ml NEB PRN Q4HRS PRN 11/30/18 Reported Imodium A-D (Loperamide HCl) 2 Mg Capsule 2 Mg PO PRN PRN 11/30/18 Reported Flonase Allergy Relief (Fluticasone Propionate) 9.9 Ml [place].susp 1 Sprays NS PRN Q12HRS PRN 11/30/18 Reported Coreg (Carvedilol) 3.125 Mg Tablet 3.125 Mg PO BIDWMEALS 11/30/18 Reported Chloraseptic (Phenol) 20 Ml [place] 1 [place]rie MM PRN Q6HRS PRN 11/30/18 Reported Calcium Citrate 250 Mg Tablet 500 Mg PO DAILY 11/30/18 Reported Tylenol (Acetaminophen) 325 Mg Tablet 2 Tab PO PRN Q6HRS PRN 11/30/18 Reported Atorvastatin Calcium 10 Mg Tablet 1 Tab PO QHS 11/30/18 Reported Proair Respiclick (Albuterol Sulfate) 90 Mcg Aer.pow.ba 1 Puff IH PRN Q6HRS PRN 01/18/17 Reported Alendronate Sodium 70 Mg Tablet 1 Tab PO WEEKLY 01/18/17 Reported Citalopram Hbr (Citalopram Hydrobromide) 10 Mg Tablet 1.5 Tab PO DAILY 01/18/17 Reported Cetirizine Hcl 10 Mg Tablet 1 Tab PO DAILY 01/18/17 Reported Guaifenesin 600 Mg Tablet.er 600 Mg PO PRN Q8HRS PRN 01/18/17 Reported Clopidogrel (Clopidogrel Bisulfate) 75 Mg Tablet 1 Tab PO DAILY 01/18/17 Reported Novolog Flexpen (Insulin Aspart) 100 Unit/1 Ml Insuln.pen 0-3 Unit SQ QIDACHS 10/25/19 Reported PATIENT SLIDING SCALE. 70-249= 0 UNITS. 250-400= 3UNITS. BEFORE MEALS AND AT BEDTIME GIVE 3 UNITS IF BLOOD SUGAR 250 OR ABOVE. Diclofenac Sodium 100 Gm Gel..gram. 1 Carlos TP DAILY 10/25/19 Reported D3-50 (Cholecalciferol (Vitamin D3)) 50,000 Unit Capsule 50,000 Unit PO DAILY 10/25/19 Reported Trazodone Hcl 50 Mg Tablet 0.5 Tab PO QHS 10/25/19 Reported Reglan (Metoclopramide Hcl) 5 Mg Tablet 5 Mg PO DAILY 10/25/19 Reported Protonix (Pantoprazole Sodium) 20 Mg Tablet.dr 1 Tab PO DAILY 10/25/19 Reported [place] 5-325 Tablet (Hydrocodone Bit/Acetaminophen) 1 Each Tablet 1 Tab PO Q4HRS 10/25/19 Reported Naproxen 500 Mg Tablet 1 Tab PO Q8HRS 10/25/19 Reported Lisinopril 2.5 Mg Tablet 1 Tab PO DAILY 10/25/19 Reported Lidocaine PATCH (Lidocaine) 1 Each Adh..patch 1 Each TP DAILY 10/25/19 Reported REMOVE AFTER 12 HOURS Lasix (Furosemide) 20 Mg Tablet 1 Tab PO DAILY 30 10/25/19 Reported Duoneb 0.5-3(2.5) Mg/3 Ml (Albuterol/Ipratropium) 3 Ml Ampul.neb 3 Ml NEB QID 10/25/19 Reported Imodium A-D (Loperamide HCl) 2 Mg Capsule 2 Mg PO DAILY 10/25/19 Reported Guaifenesin 400 Mg Tablet 400 Mg PO Q8HRS 10/25/19 Reported Coreg (Carvedilol) 3.125 Mg Tablet 3.125 Mg PO BID 10/25/19 Reported Clopidogrel (Clopidogrel Bisulfate) 75 Mg Tablet 75 Mg PO DAILY 10/25/19 Reported Citalopram Hbr (Citalopram Hydrobromide) 10 Mg Tablet 10 Mg PO DAILY 10/25/19 Reported Atorvastatin Calcium 10 Mg Tablet 10 Mg PO DAILY 10/25/19 Reported Proair Hfa Inhaler (Albuterol Sulfate) 8.5 Gm Hfa.aer.ad 1 Puff INH PRN Q6HRS 10/25/19 Reported Acetaminophen 500 Mg Tablet 1 Tab PO PRN Q6HRS 10/25/19 Reported Glimepiride 1 Mg Tablet 1 Mg PO DAILY 07/05/14 Reported Simvastatin 40 Mg Tablet 40 Mg PO HS 07/05/14 Reported Omeprazole 20 Mg Capsule.dr 20 Mg PO DAILY 07/05/14 Reported Januvia (Sitagliptin Phosphate) 100 Mg Tablet 100 Mg PO DAILY 07/05/14 Reported Comments cxr reviewed 11/01 1. Small left pleural effusion. Retrocardiac atelectasis or infiltrate. 2. Mild pulmonary edema. ett ok Impression . IMPRESSION: 1. Acute respiratory failure, multifactorial in etiology. 2. New-onset seizure. 3. Acute diastolic congestive heart failure, rule out myocardial infarction, le ss likely pneumonia. 4. Abnormal chest x-ray. 5. Electrolyte abnormality. 6. Hypertensive urgency. 7. Diabetes mellitus. 8. COVID-19 PUI. Plan . PLAN AND RECOMMENDATIONS: 1. Titrate FiO2 to keep O2 saturation 94%. 2. Continue ventilator support. Vent setting was reviewed. reviewed ABG. decrease sedation to eval mental status, CPA trial once awake 3. Replace potassium and magnesium. monitor heart rhythm as she has had episodes of torsade 4. Monitor troponin. 5. follow Neurology rec, on keppra, if covid neg, mri of brain. 6. Continue ventilator support until the patient is more stable. 7. Pepcid for stress ulcer prophylaxis. 8. SCDs for DVT prophylaxis. 9. The findings and recommendations were discussed with RN and RT. 10. Follow up COVID-19. discussed w rn, rt critically ill cc time 30 min no overlap DEXTER HANNAH MD Nov 04, 2019 10:35
--- NOTE | 2019-11-04 10:42 | PN ---
DATE: 11/04/2019 SUBJECTIVE: The patient is continued to be sedated, intubated and mechanically ventilated. She does apparently open her eyes and tracks, but does not follow command. PHYSICAL EXAMINATION: GENERAL: On examining her, she looked pale, no jaundice, cyanosis or thyromegaly. No jugular venous distension. No lower limb edema. VITAL SIGNS: His heart rate was 54, blood pressure was 138/63, temperature was 98.2, respiratory rate was 12 and oxygen saturation was 100% on FiO2 of 40%. HEAD, EYES, EARS, NOSE AND THROAT: Showed normocephalic, atraumatic with orotracheal and orogastric tube in place. NECK: Supple. CARDIAC: Normal first and second heart sounds with no gallop, rub or murmur. CHEST: Clear to auscultation. No crepitation or rhonchi. ABDOMEN: Distended, soft, nontender. NEUROLOGIC: She does open her eyes, but does not follow command. She has an indwelling Gibbs catheter. Her intake was 1300, output was 425. LABORATORY DATA: Her lab work this morning showed a white cell count of 8500, hemoglobin 7.6, hematocrit 22, MCV 89 and platelet count 227,000. Her chemistry showed a serum sodium 138, potassium 3.6, chloride 104, bicarbonate 28, anion gap of 6, BUN 13, creatinine 1.2, estimated GFR was 43 mL per minute. Her glucose 138, calcium was 8.2, magnesium was 2.3. Total bilirubin, AST, ALT, alkaline phosphatase are normal. Total protein was 4.8, albumin was 1.8. Her vancomycin trough level was well within therapeutic range and her blood gas this morning showed a pH of 7.48, pCO2 of 35, pO2 of 108, bicarbonate 26 and oxygen saturation was 98% on FiO2 of 40%. ASSESSMENT: 1. This is an 79-year-old female patient, who was a resident at [facility], who presented with new onset tonic-clonic seizures. 2. She probably has aspiration pneumonia with acute respiratory failure for which she was intubated and transferred to [facility] 3. Her blood pressure was extremely high on arrival for which she was started on Cardene drip. 4. For her seizures, she was treated with Keppra 1000 mg IV twice a day that was cut down to 500 twice a day. 5. Her potassium was also extremely low at 2.6 and was replenished. Her potassium was normal today. Her troponins were mildly elevated and felt to be due to demand ischemia in the setting of high blood pressure. She was seen by the Cardiology team and was supposed to have an echocardiogram to evaluate her left ventricular systolic function. PLAN: Obviously to continue mechanical ventilation, wean as tolerated. Continue with Keppra 500 mg twice a day. Continue with IV antibiotic for possible aspiration pneumonia. Continue with all other medications. FINESSE GEORGES MD DR: IRISH/shubham JOB#: [id number] / [id number]
--- NOTE | 2019-11-04 10:44 | NUR ---
Lab called to inquire about covid results. Lab notified this RN that covid was never sent. Covid test ordered per Dr. Ziegler. No trial to be completed today.
--- NOTE | 2019-11-04 11:58 | NUR ---
SS following for discharge planning. SS reviewed pt chart and discussed with pt RN. Pt is LT resident from [facility], ; fax [phone]. Pt is currently on the vent. Pt on IV Vancomycin and Zosyn. Pt COVID19 test pending. SS will continue to follow for discharge planning.
--- NOTE | 2019-11-04 12:55 | PDOC ---
PROGRESS NOTES Subjective Subjective Intubated and sedated Objective Objective Vital Signs Date Time Temp Pulse Resp B/P (MAP) Pulse Ox O2 Delivery O2 Flow Rate FiO2 11/04/19 12:00 Mechanical Ventilator 11/04/19 12:00 99.0 56 11 133/58 (83) 100 99.0 Intake and Output 11/04/19 07:00 Intake Total 1204 ml Output Total 2575 ml Balance -1371 ml Intake IV Total 904 ml Tube Feeding 300 ml Output Urine Total 2575 ml Physical Exam Abdomen: Soft Heart: Regular rate Extremities: No clubbing General: Other (Intubated and sedated) Lungs: Other (Decreased air entry bases) Assessment Assessment 1. Accelerated hypertension: Better controlled since admission. Current medical regimen and check 2D echo to assess LV systolic function. 2. New onset seizure disorder: Started on Keppra by neurology team 3. Acute respiratory failure, multifactorial: s/p intubation, treat per pulmonary team. COVID test pending. Continue empiric antibiotics. 4. Acute on chronic diastolic heart failure: Continue diuretics 5. Slightly elevated troponin level, most probably demand ischemia: Plan ischemic evaluation as an outpatient. 6. Torsades: several brief episodes on telemetry yesterday but only one episode noted overnight. QTc interval prolonged on initial EKG. Magnesium replaced. Celexa and propofol changed to Zoloft and precedex yesterday. Repeat EKG for QTc interval. Comment Review of Relevant I have reviewed the following items regina (where applicable) has been applied. Labs Laboratory Tests Test 11/03/19 13:37 11/03/19 21:50 11/04/19 05:45 11/04/19 07:30 Glucose (Fingerstick) 138 mg/dL (70-99) Vancomycin Level Trough 11.7 mcg/mL (10.0-20.0) Vancomycin Last Dose Date 11/02/19 Vancomycin Last Dose Time 2200 White Blood Count 8.5 x10^3/uL (4.0-11.0) Red Blood Count 2.50 x10^6/uL (3.50-5.40) Hemoglobin 7.6 g/dL (12.0-15.5) Hematocrit 22.4 % (36.0-47.0) Mean Corpuscular Volume 89 fL (79-100) Mean Corpuscular Hemoglobin 30 pg (25-35) Mean Corpuscular Hemoglobin Concent 34 g/dL (31-37) Red Cell Distribution Width 16.6 % (11.5-14.5) Platelet Count 227 x10^3/uL (140-400) Sodium Level 138 mmol/L (136-145) Potassium Level 3.6 mmol/L (3.5-5.1) Chloride Level 104 mmol/L (98-107) Carbon Dioxide Level 28 mmol/L (21-32) Anion Gap 6 (6-14) Blood Urea Nitrogen 13 mg/dL (7-20) Creatinine 1.2 mg/dL (0.6-1.0) Estimated GFR (Cockcroft-Gault) 43.2 BUN/Creatinine Ratio 11 (6-20) Glucose Level 138 mg/dL (70-99) Calcium Level 8.2 mg/dL (8.5-10.1) Magnesium Level 2.3 mg/dL (1.8-2.4) Total Bilirubin 0.3 mg/dL (0.2-1.0) Aspartate Amino Transf (AST/SGOT) 23 U/L (15-37) Alanine Aminotransferase (ALT/SGPT) 9 U/L (14-59) Alkaline Phosphatase 41 U/L (46-116) Total Protein 4.9 g/dL (6.4-8.2) Albumin 1.8 g/dL (3.4-5.0) Albumin/Globulin Ratio 0.6 (1.0-1.7) O2 Saturation 98 % (92-99) Arterial Blood pH 7.48 (7.35-7.45) Arterial Blood pCO2 at Patient Temp 35 mmHg (35-46) Arterial Blood pO2 at Patient Temp 108 mmHg (65-108) Arterial Blood HCO3 26 mmol/L (21-28) Arterial Blood Base Excess 2 mmol/L (-3-3) FiO2 40 Medications Current Medications Atropine Sulfate (ATROPINE 0.5mg SYRINGE) 0.5 mg PRN Q5MIN PRN IV SEE COMMENTS; Start 11/03/19 at 14:00 Dexmedetomidine HCl 400 mcg/ Sodium Chloride 100 ml @ 0 mls/hr CONT PRN IV PER PROTOCOL Last administered on 11/04/19at 06:04; Start 11/03/19 at 14:00 Levetiracetam 500 mg/Dextrose 105 ml @ 420 mls/hr Q12HR IV Last administered on 11/04/19at 08:47; Start 11/03/19 at 21:00 Losartan Potassium (Cozaar) 25 mg DAILY NG Last administered on 11/04/19at 0 8:48; Start 11/03/19 at 14:00 Sertraline HCl (Zoloft) 50 mg DAILY PO Last administered on 11/04/19at 08:48; Start 11/04/19 at 09:00 Sodium Chloride 500 ml @ 500 mls/hr 1X PRN PRN IV SEE COMMENTS; Start 11/03/19 at 14:00 Vancomycin HCl (Vancomycin Trough Level) 1 each 1X ONCE MC Last administered on 11/03/19at 21:30; Start 11/03/19 at 21:30; Stop 11/03/19 at 21:31; Status DC Vancomycin HCl (Vancomycin Trough Level) 1 each 1X ONCE MC ; Start 11/06/19 at 04:30; Stop 11/06/19 at 04:31 Vancomycin HCl 1 gm/Sodium Chloride 250 ml @ 250 mls/hr Q18H IV ; Start 11/04/19 at 17:00 Vitals/I & O Vital Sign - Last 24 Hours 11/03/19 11/03/19 11/03/19 11/03/19 13:00 14:00 14:00 15:00 Pulse 77 62 82 84 Resp B/P (MAP) 153/71 (98) 101/53 188/76 (113) 172/81 (111) Pulse Ox 100 100 100 O2 Delivery Ventilator Ventilator Ventilator 11/03/19 11/03/19 11/03/19 11/03/19 15:20 16:00 16:00 17:00 Temp 98.1 98.1 Pulse 78 62 Resp 21 B/P (MAP) 182/79 (113) 95/43 Pulse Ox 100 100 O2 Delivery Ventilator Ventilator Mechanical Ventilator 11/03/19 11/03/19 11/03/19 11/03/19 17:00 18:00 19:00 20:00 Temp 98.3 98.3 Pulse 65 88 60 61 Resp 15 20 18 B/P (MAP) 115/48 (70) 114/76 (89) 113/48 (69) 110/55 (73) Pulse Ox 100 100 100 100 O2 Delivery Ventilator Ventilator Ventilator Ventilator 11/03/19 11/03/19 11/03/19 11/03/19 20:00 20:40 21:00 22:00 Pulse 62 62 Resp 22 19 B/P (MAP) 113/52 (72) 109/45 (66) Pulse Ox 100 100 100 O2 Delivery Mechanical Ventilator Ventilator Ventilator Ventilator 11/03/19 11/03/19 11/03/19 11/04/19 23:00 23:39 23:59 00:00 Temp 98.3 98.3 Pulse 62 68 Resp 12 14 B/P (MAP) 102/49 (66) 116/47 (70) Pulse Ox 100 98 O2 Delivery Ventilator Mechanical Ventilator Ventilator Mechanical Ventilator 11/04/19 11/04/19 11/04/19 11/04/19 00:15 01:00 02:00 03:00 Pulse 53 55 56 Resp 12 12 13 B/P (MAP) 125/57 (79) 128/51 (76) 129/53 (78) Pulse Ox 100 100 100 100 O2 Delivery Ventilator Ventilator Ventilator Ventilator 11/04/19 11/04/19 11/04/19 11/04/19 04:00 04:00 04:15 05:00 Temp 98.2 98.2 Pulse 57 55 Resp 11 11 B/P (MAP) 138/57 (84) 133/51 (78) Pulse Ox 100 100 100 O2 Delivery Ventilator Mechanical Ventilator Ventilator Ventilator 11/04/19 11/04/19 11/04/19 11/04/19 06:00 07:00 07:30 08:00 Pulse 56 56 Resp 11 12 B/P (MAP) 121/58 (79) 119/51 (73) Pulse Ox 100 100 100 O2 Delivery Ventilator Ventilator Ventilator Mechanical Ventilator 11/04/19 11/04/19 11/04/19 11/04/19 08:00 08:00 08:48 09:00 Temp 98.9 98.9 Pulse 55 54 54 54 Resp 12 17 B/P (MAP) 144/65 (91) 138/63 140/63 (88) Pulse Ox 100 100 O2 Delivery Ventilator Ventilator 11/04/19 11/04/19 11/04/19 11/04/19 10:00 11:00 11:30 12:00 Temp 99.0 99.0 Pulse 56 54 56 Resp 12 11 11 B/P (MAP) 137/49 (78) 166/58 (94) 133/58 (83) Pulse Ox 100 100 100 100 O2 Delivery Ventilator Ventilator Ventilator Ventilator 11/04/19 12:00 O2 Delivery Mechanical Ventilator Intake and Output 11/03/19 11/03/19 11/04/19 15:00 23:00 07:00 Intake Total 551 ml 100 ml 553 ml Output Total 900 ml 960 ml 715 ml Balance -349 ml -860 ml -162 ml ASHELY SANCHES MD Nov 04, 2019 12:55
--- NOTE | 2019-11-04 13:04 | EKG ---
[facility] [address] [place] [address] Test Date: 2019-11-04 Test Time: 12:04:00 Pat Name: GUILLERMO JIMENEZ Department: Room: 112 1 Gender: F Service [employer]: : 1940 Requested By: ASHELY SANCHES Order Number: [id number] Reading MD: Measurements Intervals [place] Rate: 56 P: 65 RI: 116 QRS: 58 QRSD: 86 T: 65 QT: 502 QTc: 487 Interpretive Statements SINUS RHYTHM T ABNORMALITY IN ANTERIOR LEADS PROLONGED QT ABNORMAL ECG RI6.02 No previous ECG available for comparison
[2019-11-04] MEDS: VANCOMYCIN 1 GM in IV NORMAL SALINE 250ML 250 ML IV SCH (17:54)
[2019-11-04] MEDS: FUROSEMIDE 20 MG TABLET PO SCH (17:54)
[2019-11-04] MEDS: LATANOPROST 0.005% OPHTH SOLUTION 2.5ML BOTTLE. OU SCH (21:20)
[2019-11-04] MEDS: ATORVASTATIN CALCIUM 10 MG TABLET. PO SCH (21:20)
[2019-11-05] VITALS (24 sets, daily range): BP systolic 106–240; BP diastolic 37–107
[2019-11-05] MEDS: PIPERACILLIN/TAZOBACTAM 3.375 GM in IV NORMAL SALINE 50ML 50 ML IV SCH ×4 (00:36→17:32)
[2019-11-05] MEDS: DEXMEDETOMIDINE 400 MCG in IV NORMAL SALINE 100ML 96 ML IV PRN (02:05)
[2019-11-05 06:15] LABS: HEMATOCRIT 22.2 % (36.0-47.0); HEMOGLOBIN 7.4 g/dL (12.0-15.5)
[2019-11-05 06:28] LABS: CALCIUM 7.9 mg/dL (8.5-10.1); CREATININE 1.2 mg/dL (0.6-1.0); GFR 43.2; POTASSIUM 3.6 mmol/L (3.5-5.1)
[2019-11-05] MEDS: VANCOMYCIN PER PHARMACY MC PRN (07:35)
[2019-11-05] MEDS: CARVEDILOL 3.125 MG TABLET. PO SCH ×2 (08:00→17:00)
[2019-11-05 08:01] LABS: BASE EXCESS ABG 4 mmol/L (-3-3); HCO3 ABG 27 mmol/L (21-28); PCO2 ABG 37 mmHg (35-46); PO2 ABG 111 mmHg (65-108); SAT O2 ABG 97 % (92-99)
[2019-11-05 08:03] LABS: FIO2 ABG 40
[2019-11-05] MEDS: FAMOTIDINE 20 MG/2 ML VIAL IVP SCH (08:53)
[2019-11-05] MEDS: levETIRAcetam 500 MG in IV DEXTROSE 5% 100ML 100 ML IV SCH ×2 (08:53→21:08)
[2019-11-05] MEDS: CLOPIDOGREL BISULFATE 75 MG TABLET PO SCH (08:53)
[2019-11-05] MEDS: CETIRIZINE HCL 10 MG TABLET. PO SCH (08:53)
[2019-11-05] MEDS: SERTRALINE 50 MG TABLET. PO SCH (08:53)
[2019-11-05] MEDS: LOSARTAN POTASSIUM 25 MG TABLET. NG SCH (08:54)
[2019-11-05] MEDS: FUROSEMIDE 40 MG TABLET. PO SCH (08:54)
[2019-11-05] MEDS: CHLORHEXIDINE 0.12% 15 ML MOUTHWASH. MM SCH ×2 (08:54→20:59)
--- NOTE | 2019-11-05 09:43 | PDOC ---
PULMONARY PROGRESS NOTES Subjective on vent, RESPONDS WHEN OFF SEDATION small ett secretion, NO FURTHER SEIZURES Vitals Vital Signs Date Time Temp Pulse Resp B/P (MAP) Pulse Ox O2 Delivery O2 Flow Rate FiO2 11/05/19 08:54 55 158/59 11/05/19 08:00 Mechanical Ventilator 11/05/19 07:42 100 11/05/19 07:00 11 11/05/19 04:00 98.5 98.5 Comments VISUAL EXAM DONE on vent sedated appears comfortable no paradoxical abd motion ekg nsr no edema no rash Labs Laboratory Tests Test 11/03/19 13:37 11/03/19 21:50 11/04/19 05:45 11/04/19 07:30 Glucose (Fingerstick) 138 mg/dL (70-99) Vancomycin Level Trough 11.7 mcg/mL (10.0-20.0) Vancomycin Last Dose Date 11/02/19 Vancomycin Last Dose Time 2200 White Blood Count 8.5 x10^3/uL (4.0-11.0) Red Blood Count 2.50 x10^6/uL (3.50-5.40) Hemoglobin 7.6 g/dL (12.0-15.5) Hematocrit 22.4 % (36.0-47.0) Mean Corpuscular Volume 89 fL (79-100) Mean Corpuscular Hemoglobin 30 pg (25-35) Mean Corpuscular Hemoglobin Concent 34 g/dL (31-37) Red Cell Distribution Width 16.6 % (11.5-14.5) Platelet Count 227 x10^3/uL (140-400) Sodium Level 138 mmol/L (136-145) Potassium Level 3.6 mmol/L (3.5-5.1) Chloride Level 104 mmol/L (98-107) Carbon Dioxide Level 28 mmol/L (21-32) Anion Gap 6 (6-14) Blood Urea Nitrogen 13 mg/dL (7-20) Creatinine 1.2 mg/dL (0.6-1.0) Estimated GFR (Cockcroft-Gault) 43.2 BUN/Creatinine Ratio 11 (6-20) Glucose Level 138 mg/dL (70-99) Calcium Level 8.2 mg/dL (8.5-10.1) Magnesium Level 2.3 mg/dL (1.8-2.4) Total Bilirubin 0.3 mg/dL (0.2-1.0) Aspartate Amino Transf (AST/SGOT) 23 U/L (15-37) Alanine Aminotransferase (ALT/SGPT) 9 U/L (14-59) Alkaline Phosphatase 41 U/L (46-116) Total Protein 4.9 g/dL (6.4-8.2) Albumin 1.8 g/dL (3.4-5.0) Albumin/Globulin Ratio 0.6 (1.0-1.7) O2 Saturation 98 % (92-99) Arterial Blood pH 7.48 (7.35-7.45) Arterial Blood pCO2 at Patient Temp 35 mmHg (35-46) Arterial Blood pO2 at Patient Temp 108 mmHg (65-108) Arterial Blood HCO3 26 mmol/L (21-28) Arterial Blood Base Excess 2 mmol/L (-3-3) FiO2 40 Test 11/05/19 06:00 11/05/19 07:40 Hemoglobin 7.4 g/dL (12.0-15.5) Hematocrit 22.2 % (36.0-47.0) Sodium Level 138 mmol/L (136-145) Potassium Level 3.6 mmol/L (3.5-5.1) Chloride Level 103 mmol/L (98-107) Carbon Dioxide Level 29 mmol/L (21-32) Anion Gap 6 (6-14) Blood Urea Nitrogen 17 mg/dL (7-20) Creatinine 1.2 mg/dL (0.6-1.0) Estimated GFR (Cockcroft-Gault) 43.2 Glucose Level 151 mg/dL (70-99) Calcium Level 7.9 mg/dL (8.5-10.1) O2 Saturation 97 % (92-99) Arterial Blood pH 7.48 (7.35-7.45) Arterial Blood pCO2 at Patient Temp 37 mmHg (35-46) Arterial Blood pO2 at Patient Temp 111 mmHg (65-108) Arterial Blood HCO3 27 mmol/L (21-28) Arterial Blood Base Excess 4 mmol/L (-3-3) FiO2 40 Laboratory Tests Test 11/05/19 06:00 11/05/19 07:40 Hemoglobin 7.4 g/dL (12.0-15.5) Hematocrit 22.2 % (36.0-47.0) Sodium Level 138 mmol/L (136-145) Potassium Level 3.6 mmol/L (3.5-5.1) Chloride Level 103 mmol/L (98-107) Carbon Dioxide Level 29 mmol/L (21-32) Anion Gap 6 (6-14) Blood Urea Nitrogen 17 mg/dL (7-20) Creatinine 1.2 mg/dL (0.6-1.0) Estimated GFR (Cockcroft-Gault) 43.2 Glucose Level 151 mg/dL (70-99) Calcium Level 7.9 mg/dL (8.5-10.1) O2 Saturation 97 % (92-99) Arterial Blood pH 7.48 (7.35-7.45) Arterial Blood pCO2 at Patient Temp 37 mmHg (35-46) Arterial Blood pO2 at Patient Temp 111 mmHg (65-108) Arterial Blood HCO3 27 mmol/L (21-28) Arterial Blood Base Excess 4 mmol/L (-3-3) FiO2 40 Medications Active Scripts Medications Dose Route/Sig Max Daily Dose Days Date Category Dose Instructions Kristie (Sitagliptin Phosphate) 100 Mg Tablet 1 Tab PO DAILY 11/02/19 Reported Pantoprazole Sodium (Pantoprazole Sodium) 40 Mg Tablet.dr 20 Mg PO DAILYAC 11/02/19 Reported Glimepiride 1 Mg Tablet 1 Tab PO DAILY 11/02/19 Reported Hydrocodone-Apap 5-325 (Hydrocodone Bit/Acetaminophen) 1 Tab Tablet 1 Tab PO PRN Q6HRS PRN 11/02/19 Reported Lisinopril 10 Mg Tablet 1 Tab PO DAILY 11/02/19 Reported Acetaminophen 500 Mg Tablet 1 Tab PO BID 11/30/18 Reported Trazodone Hcl 50 Mg Tablet 0.5 Tab PO QHS 11/30/18 Reported Omeprazole 20 Mg Capsule. 1 Cap PO DAILY 11/30/18 Reported Novolog (Insulin Aspart) 100 Unit/1 Ml Cartridge 100 Unit SQ QIDACHS 11/30/18 Reported Naproxen 500 Mg Tablet 1 Tab PO PRN Q8HRS PRN 11/30/18 Reported Lidocaine PATCH (Lidocaine) 1 Each Adh..patch 1 Each TP DAILY 11/30/18 Reported REMOVE AFTER 12 HOURS Latanoprost 2.5 Ml Drops 1 Drop EACHEYE QHS 11/30/18 Reported Duoneb 0.5-3(2.5) Mg/3 Ml (Albuterol/Ipratropium) 3 Ml Ampul.neb 3 Ml NEB PRN Q4HRS PRN 11/30/18 Reported Imodium A-D (Loperamide HCl) 2 Mg Capsule 2 Mg PO PRN PRN 11/30/18 Reported Flonase Allergy Relief (Fluticasone Propionate) 9.9 Ml [place].susp 1 Sprays NS PRN Q12HRS PRN 11/30/18 Reported Coreg (Carvedilol) 3.125 Mg Tablet 3.125 Mg PO BIDWMEALS 11/30/18 Reported Chloraseptic (Phenol) 20 Ml [place] 1 [place] MM PRN Q6HRS PRN 11/30/18 Reported Calcium Citrate 250 Mg Tablet 500 Mg PO DAILY 11/30/18 Reported Tylenol (Acetaminophen) 325 Mg Tablet 2 Tab PO PRN Q6HRS PRN 11/30/18 Reported Atorvastatin Calcium 10 Mg Tablet 1 Tab PO QHS 11/30/18 Reported Proair Respiclick (Albuterol Sulfate) 90 Mcg Aer.pow.ba 1 Puff IH PRN Q6HRS PRN 01/18/17 Reported Alendronate Sodium 70 Mg Tablet 1 Tab PO WEEKLY 01/18/17 Reported Citalopram Hbr (Citalopram Hydrobromide) 10 Mg Tablet 1.5 Tab PO DAILY 01/18/17 Reported Cetirizine Hcl 10 Mg Tablet 1 Tab PO DAILY 01/18/17 Reported Guaifenesin 600 Mg Tablet.er 600 Mg PO PRN Q8HRS PRN 01/18/17 Reported Clopidogrel (Clopidogrel Bisulfate) 75 Mg Tablet 1 Tab PO DAILY 01/18/17 Reported Novolog Flexpen (Insulin Aspart) 100 Unit/1 Ml Insuln.pen 0-3 Unit SQ QIDACHS 10/25/19 Reported PATIENT SLIDING SCALE. 70-249= 0 UNITS. 250-400= 3UNITS. BEFORE MEALS AND AT BEDTIME GIVE 3 UNITS IF BLOOD SUGAR 250 OR ABOVE. Diclofenac Sodium 100 Gm Gel..gram. 1 Carlos TP DAILY 10/25/19 Reported D3-50 (Cholecalciferol (Vitamin D3)) 50,000 Unit Capsule 50,000 Unit PO DAILY 10/25/19 Reported Trazodone Hcl 50 Mg Tablet 0.5 Tab PO QHS 10/25/19 Reported Reglan (Metoclopramide Hcl) 5 Mg Tablet 5 Mg PO DAILY 10/25/19 Reported Protonix (Pantoprazole Sodium) 20 Mg Tablet.dr 1 Tab PO DAILY 10/25/19 Reported Friant 5-325 Tablet (Hydrocodone Bit/Acetaminophen) 1 Each Tablet 1 Tab PO Q4HRS 10/25/19 Reported Naproxen 500 Mg Tablet 1 Tab PO Q8HRS 10/25/19 Reported Lisinopril 2.5 Mg Tablet 1 Tab PO DAILY 10/25/19 Reported Lidocaine PATCH (Lidocaine) 1 Each Adh..patch 1 Each TP DAILY 10/25/19 Reported REMOVE AFTER 12 HOURS Lasix (Furosemide) 20 Mg Tablet 1 Tab PO DAILY 30 10/25/19 Reported Duoneb 0.5-3(2.5) Mg/3 Ml (Albuterol/Ipratropium) 3 Ml Ampul.neb 3 Ml NEB QID 10/25/19 Reported Imodium A-D (Loperamide HCl) 2 Mg Capsule 2 Mg PO DAILY 10/25/19 Reported Guaifenesin 400 Mg Tablet 400 Mg PO Q8HRS 10/25/19 Reported Coreg (Carvedilol) 3.125 Mg Tablet 3.125 Mg PO BID 10/25/19 Reported Clopidogrel (Clopidogrel Bisulfate) 75 Mg Tablet 75 Mg PO DAILY 10/25/19 Reported Citalopram Hbr (Citalopram Hydrobromide) 10 Mg Tablet 10 Mg PO DAILY 10/25/19 Reported Atorvastatin Calcium 10 Mg Tablet 10 Mg PO DAILY 10/25/19 Reported Proair Hfa Inhaler (Albuterol Sulfate) 8.5 Gm Hfa.aer.ad 1 Puff INH PRN Q6HRS 10/25/19 Reported Acetaminophen 500 Mg Tablet 1 Tab PO PRN Q6HRS 10/25/19 Reported Glimepiride 1 Mg Tablet 1 Mg PO DAILY 07/05/14 Reported Simvastatin 40 Mg Tablet 40 Mg PO HS 07/05/14 Reported Omeprazole 20 Mg Capsule.dr 20 Mg PO DAILY 07/05/14 Reported Januvia (Sitagliptin Phosphate) 100 Mg Tablet 100 Mg PO DAILY 07/05/14 Reported Comments cxr reviewed 11/01 1. Small left pleural effusion. Retrocardiac atelectasis or infiltrate. 2. Mild pulmonary edema. ett ok Impression . IMPRESSION: 1. Acute respiratory failure, multifactorial in etiology. 2. New-onset seizure. 3. Acute diastolic congestive heart failure, rule out myocardial infarction, less likely pneumonia. 4. Abnormal chest x-ray. 5. Electrolyte abnormality. 6. Hypertensive urgency. 7. Diabetes mellitus. 8. COVID-19 PUI. / LOW CLINICAL SUSPICION Plan . PLAN AND RECOMMENDATIONS: 1. Titrate FiO2 to keep O2 saturation 94%. 2. Continue ventilator support. DC sedation. once awake, CPA trial , extubation 3. Replace potassium and magnesium. monitor heart rhythm as she has had episodes of torsade 4. Monitor troponin. 5. follow Neurology rec, on keppra, if covid neg, mri of brain. 7. Pepcid for stress ulcer prophylaxis. 8. SCDs for DVT prophylaxis. 9. The findings and recommendations were discussed with RN and RT. 10. Follow up COVID-19. discussed w rn, rt critically ill cc time 30 min no overlap DEXTER HANNAH MD Nov 05, 2019 09:43
[2019-11-05] MEDS: LOSARTAN POTASSIUM 50 MG TABLET. NG SCH (10:01)
--- NOTE | 2019-11-05 10:36 | PDOC ---
ANNITA FORTUNE [employer]PER[employer] 11/05/19 1036: CARDIO Progress Notes Date and Time Date of Service 11/05/2019 Time of Evaluation 1000 Subjective Subjective: Other (intubated off sedation) Vitals Vitals Vital Signs Date Time Temp Pulse Resp B/P (MAP) Pulse Ox O2 Delivery O2 Flow Rate FiO2 11/05/19 10:01 54 151/59 11/05/19 09:00 19 100 Ventilator 11/05/19 08:00 98.7 98.7 Weight Weight [ ] Input and Output Intake and Output Intake and Output 11/05/19 07:00 Intake Total 3727.1 ml Output Total 865 ml Balance 2862.1 ml Intake IV Total 671.1 ml Tube Feeding 1855 ml Other 1201 ml Output Urine Total 815 ml Stool Total 50 ml Gastric Drainage Total 0 ml Laboratory Labs Laboratory Tests Test 11/05/19 06:00 11/05/19 07:40 Hemoglobin 7.4 g/dL (12.0-15.5) Hematocrit 22.2 % (36.0-47.0) Sodium Level 138 mmol/L (136-145) Potassium Level 3.6 mmol/L (3.5-5.1) Chloride Level 103 mmol/L (98-107) Carbon Dioxide Level 29 mmol/L (21-32) Anion Gap 6 (6-14) Blood Urea Nitrogen 17 mg/dL (7-20) Creatinine 1.2 mg/dL (0.6-1.0) Estimated GFR (Cockcroft-Gault) 43.2 Glucose Level 151 mg/dL (70-99) Calcium Level 7.9 mg/dL (8.5-10.1) O2 Saturation 97 % (92-99) Arterial Blood pH 7.48 (7.35-7.45) Arterial Blood pCO2 at Patient Temp 37 mmHg (35-46) Arterial Blood pO2 at Patient Temp 111 mmHg (65-108) Arterial Blood HCO3 27 mmol/L (21-28) Arterial Blood Base Excess 4 mmol/L (-3-3) FiO2 40 Physical Exam Chest: Symmetric LUNGS: Other (intuabted vent weaning) Heart: RRR (SR/SB) Abdomen: Soft N/T Extremities: No Calf Tenderness Neurology: alert, follow commands Assessment Assessment 1. Accelerated hypertension: BP better controlled 2. New onset seizure disorder: Started on Keppra by neurology team 3. Acute respiratory failure, multifactorial: s/p intubation, treat per pulmonary team. COVID test pending. Vent weaning today 4. Acute on chronic diastolic heart failure: appears better 5. Slightly elevated troponin level, most probably demand ischemia: 6. Brief Torsades: post Mg replacement and SSRI changes. none further 7. Asymptomatic SB: lowest 50s. no pauses. QTc 487. 8. Normocytic anemia: hgb trending down to 7.4 9. Protein malnutrition Recommendations TTE pending covid test Will obtain EKG Renal function stable. monitor Hgb. Continue with lasix therapy, statin. Unclear indication for plavix and will DC for now given down trend of Hgb unless for significant use. Continue with current BP regimen. May hold coreg if HR is less than 50s. Will consider for outpt ischemic workup. Justicifation of Admission Dx: Justifications for Admission: Justification of Admission Dx: Yes Respiratory Failure: Mechanical Ventilation Altered Mental Status: Altered Mental Status ASHELY SANCHES MD 11/05/19 1642: CARDIO Progress Notes Assessment Assessment Patient seen and examined. Agree with TAX SERVICES INTERN's assessment and plan. Torsades improved after changing QTc prolonging agents. EKG with improved QTc interval. Slight troponin elevation probably demand ischemia. We will consider ischemic evaluation as an outpatient. Acute on chronic diastolic heart failure better compensated. Blood pressure better controlled. Continue vent management per pulmonary team. ANNITA FORTUNE APRN Nov 05, 2019 10:36 ASHELY SANCHES MD Nov 05, 2019 16:42
--- NOTE | 2019-11-05 10:41 | PDOC ---
PROGRESS NOTES Assessment Respiratory failure Seizure, no evidence of recurrence Aspiration pneumonia, severe hypertension, hypokalemia (resolved), elevated troponin, elevated BNP Plan Continue levetiracetam IV Consider EEG and MRI when ruled out for COVID, EEG won't be helpful while the patient is on sedation. Treatment of medical problems. Subjective None Objective Vital Signs Date Time Temp Pulse Resp B/P (MAP) Pulse Ox O2 Delivery O2 Flow Rate FiO2 11/05/19 10:01 54 151/59 11/05/19 10:00 19 100 Ventilator 11/05/19 08:00 98.7 98.7 Intake and Output 11/05/19 07:00 Intake Total 3727.1 ml Output Total 865 ml Balance 2862.1 ml Intake IV Total 671.1 ml Tube Feeding 1855 ml Other 1201 ml Output Urine Total 815 ml Stool Total 50 ml Gastric Drainage Total 0 ml PHYSICAL EXAM Brief exam through glass, patient looks at me and follows pantomimed commands Review of Relevant I have reviewed the following items regina (where applicable) has been applied. Labs Laboratory Tests Test 11/03/19 13:37 11/03/19 21:50 11/04/19 05:45 11/04/19 07:30 Glucose (Fingerstick) 138 mg/dL (70-99) Vancomycin Level Trough 11.7 mcg/mL (10.0-20.0) Vancomycin Last Dose Date 11/02/19 Vancomycin Last Dose Time 2200 White Blood Count 8.5 x10^3/uL (4.0-11.0) Red Blood Count 2.50 x10^6/uL (3.50-5.40) Hemoglobin 7.6 g/dL (12.0-15.5) Hematocrit 22.4 % (36.0-47.0) Mean Corpuscular Volume 89 fL (79-100) Mean Corpuscular Hemoglobin 30 pg (25-35) Mean Corpuscular Hemoglobin Concent 34 g/dL (31-37) Red Cell Distribution Width 16.6 % (11.5-14.5) Platelet Count 227 x10^3/uL (140-400) Sodium Level 138 mmol/L (136-145) Potassium Level 3.6 mmol/L (3.5-5.1) Chloride Level 104 mmol/L (98-107) Carbon Dioxide Level 28 mmol/L (21-32) Anion Gap 6 (6-14) Blood Urea Nitrogen 13 mg/dL (7-20) Creatinine 1.2 mg/dL (0.6-1.0) Estimated GFR (Cockcroft-Gault) 43.2 BUN/Creatinine Ratio 11 (6-20) Glucose Level 138 mg/dL (70-99) Calcium Level 8.2 mg/dL (8.5-10.1) Magnesium Level 2.3 mg/dL (1.8-2.4) Total Bilirubin 0.3 mg/dL (0.2-1.0) Aspartate Amino Transf (AST/SGOT) 23 U/L (15-37) Alanine Aminotransferase (ALT/SGPT) 9 U/L (14-59) Alkaline Phosphatase 41 U/L (46-116) Total Protein 4.9 g/dL (6.4-8.2) Albumin 1.8 g/dL (3.4-5.0) Albumin/Globulin Ratio 0.6 (1.0-1.7) O2 Saturation 98 % (92-99) Arterial Blood pH 7.48 (7.35-7.45) Arterial Blood pCO2 at Patient Temp 35 mmHg (35-46) Arterial Blood pO2 at Patient Temp 108 mmHg (65-108) Arterial Blood HCO3 26 mmol/L (21-28) Arterial Blood Base Excess 2 mmol/L (-3-3) FiO2 40 Test 11/05/19 06:00 11/05/19 07:40 Hemoglobin 7.4 g/dL (12.0-15.5) Hematocrit 22.2 % (36.0-47.0) Sodium Level 138 mmol/L (136-145) Potassium Level 3.6 mmol/L (3.5-5.1) Chloride Level 103 mmol/L (98-107) Carbon Dioxide Level 29 mmol/L (21-32) Anion Gap 6 (6-14) Blood Urea Nitrogen 17 mg/dL (7-20) Creatinine 1.2 mg/dL (0.6-1.0) Estimated GFR (Cockcroft-Gault) 43.2 Glucose Level 151 mg/dL (70-99) Calcium Level 7.9 mg/dL (8.5-10.1) O2 Saturation 97 % (92-99) Arterial Blood pH 7.48 (7.35-7.45) Arterial Blood pCO2 at Patient Temp 37 mmHg (35-46) Arterial Blood pO2 at Patient Temp 111 mmHg (65-108) Arterial Blood HCO3 27 mmol/L (21-28) Arterial Blood Base Excess 4 mmol/L (-3-3) FiO2 40 Laboratory Tests Test 11/05/19 06:00 11/05/19 07:40 Hemoglobin 7.4 g/dL (12.0-15.5) Hematocrit 22.2 % (36.0-47.0) Sodium Level 138 mmol/L (136-145) Potassium Level 3.6 mmol/L (3.5-5.1) Chloride Level 103 mmol/L (98-107) Carbon Dioxide Level 29 mmol/L (21-32) Anion Gap 6 (6-14) Blood Urea Nitrogen 17 mg/dL (7-20) Creatinine 1.2 mg/dL (0.6-1.0) Estimated GFR (Cockcroft-Gault) 43.2 Glucose Level 151 mg/dL (70-99) Calcium Level 7.9 mg/dL (8.5-10.1) O2 Saturation 97 % (92-99) Arterial Blood pH 7.48 (7.35-7.45) Arterial Blood pCO2 at Patient Temp 37 mmHg (35-46) Arterial Blood pO2 at Patient Temp 111 mmHg (65-108) Arterial Blood HCO3 27 mmol/L (21-28) Arterial Blood Base Excess 4 mmol/L (-3-3) FiO2 40 Medications Current Medications Fentanyl Citrate 30 ml @ 0 mls/hr CONT PRN IV SEE PROTOCOL; Start 11/02/19 at 02:45; Status Cancel Propofol 100 ml @ 0 mls/hr CONT PRN IV SEE PROTOCOL; Start 11/02/19 at 02:45; Status Cancel Fentanyl Citrate (Fentanyl 2ml Vial) 25 mcg PRN Q1HR PRN IV SEE COMMENTS; Start 11/02/19 at 02:45; Status Cancel Fentanyl Citrate (Fentanyl 2ml Vial) 50 mcg PRN Q1HR PRN IV SEE COMMENTS; Start 11/02/19 at 02:45; Status Cancel Chlorhexidine Gluconate (Peridex) 15 ml BID MM ; Start 11/02/19 at 09:00; Status Cancel Morphine Sulfate (Morphine Sulfate) 2 mg PRN Q1HR PRN IV SEE COMMENTS.; Start 11/02/19 at 02:45; Status Cancel Morphine Sulfate (Morphine Sulfate) 4 mg PRN Q1HR PRN IV SEE COMMENTS.; Start 11/02/19 at 02:45; Status Cancel Midazolam HCl 100 ml @ 0 mls/hr CONT PRN IV SEE PROTOCOL; Start 11/02/19 at 02:45; Status Cancel Diphenhydramine HCl (Benadryl) 25 mg PRN Q15MIN PRN IVP EPS Symptoms; Start 11/02/19 at 02:45; Status Cancel Nicardipine HCl 50 mg/Sodium Chloride 250 ml @ 25 mls/hr CONT PRN IV SEE I/O RECORD Last administered on 11/02/19at 16:45; Start 11/02/19 at 03:15 Propofol 100 ml @ As Directed STK-MED ONCE IV ; Start 11/02/19 at 02:49; Stop 11/02/19 at 03:22; Status DC Propofol 100 ml @ 0 mls/hr CONT PRN IV SEE PROTOCOL Last administered on 11/03/19at 11:18; Start 11/02/19 at 03:30; Stop 11/03/19 at 13:54; Status DC Fentanyl Citrate (Fentanyl 2ml Vial) 25 mcg PRN Q1HR PRN IV SEE COMMENTS; Start 11/02/19 at 03:30 Fentanyl Citrate (Fentanyl 2ml Vial) 50 mcg PRN Q1HR PRN IV SEE COMMENTS; Start 11/02/19 at 03:30 Chlorhexidine Gluconate (Peridex) 15 ml BID MM Last administered on 11/05/19at 08:54; Start 11/02/19 at 09:00 Famotidine (Pepcid Vial) 20 mg DAILY IVP Last administered on 11/05/19at 08:53; Start 11/02/19 at 09:00 Morphine Sulfate (Morphine Sulfate) 2 mg PRN Q1HR PRN IV SEE COMMENTS. Last administered on 11/04/19at 17:55; Start 11/02/19 at 03:30 Morphine Sulfate (Morphine Sulfate) 4 mg PRN Q1HR PRN IV SEE COMMENTS.; Start 11/02/19 at 03:30 Potassium Bicarbonate (Potassium Effervescent Tablet) 40 meq 1X ONCE PEG Last administered on 11/02/19at 08:38; Start 11/02/19 at 07:30; Stop 11/02/19 at 07:31; Status DC Potassium Bicarbonate (Potassium Effervescent Tablet) 40 meq 1X ONCE PEG Last administered on 11/02/19at 10:02; Start 11/02/19 at 08:00; Stop 11/02/19 at 08:01; Status DC Potassium Bicarbonate (Potassium Effervescent Tablet) 40 meq 1X ONCE PEG Last administered on 11/02/19at 10:41; Start 11/02/19 at 09:00; Stop 11/02/19 at 09:01; Status DC Magnesium Sulfate 50 ml @ 25 mls/hr 1X ONCE IV Last administered on 11/02/19at 08:37; Start 11/02/19 at 07:30; Stop 11/02/19 at 09:29; Status DC Famotidine (Pepcid Vial) 20 mg DAILY IVP ; Start 11/02/19 at 09:00; Status UNV Ceftriaxone Sodium (Rocephin) 1 gm Q24H IVP Last administered on 11/04/19at 08:46; Start 11/02/19 at 09:00; Stop 11/04/19 at 15:04; Status DC Levetiracetam 1000 mg/Dextrose 110 ml @ 440 mls/hr Q12HR IV Last administered on 11/03/19at 09:13; Start 11/02/19 at 11:00; Stop 11/03/19 at 09:32; Status DC Acetaminophen (Tylenol) 650 mg PRN Q6HRS PRN PO PAIN; Start 11/02/19 at 10:15 Atorvastatin Calcium (Lipitor) 10 mg QHS PO Last administered on 11/04/19at 21:20; Start 11/02/19 at 21:00 Carvedilol (Coreg) 3.125 mg BIDWMEALS PO Last administered on 11/03/19at 08:02; Start 11/02/19 at 11:00 Cetirizine HCl (ZyrTEC) 10 mg DAILY PO Last administered on 11/05/19at 08:53; Start 11/02/19 at 11:00 Citalopram Hydrobromide (CeleXA) 15 mg DAILY PO Last administered on 11/03/19at 09:14; Start 11/02/19 at 11:00; Stop 11/03/19 at 13:50; Status DC Clopidogrel Bisulfate (Plavix) 75 mg DAILY PO Last administered on 11/05/19 08:53; Start 11/02/19 at 11:00 Diclofenac Sodium (Voltaren) 1 carlos BID PRN TP PAIN; Start 11/02/19 at 10:15 Furosemide (Lasix) 20 mg QEVNG PO Last administered on 11/04/19at 17:54; Start 11/02/19 at 18:00 Furosemide (Lasix) 40 mg QAM PO Last administered on 11/05/19 08:54; Start 11/02/19 at 11:00 Albuterol Sulfate (Ventolin Neb Soln) 2.5 mg PRN Q4HRS PRN NEB SHORTNESS OF BREATH; Start 11/02/19 at 10:30 Latanoprost (Xalatan) 1 drop QHS OU Last administered on 11/04/19 21:20; Start 11/02/19 at 21:00 Lidocaine (Lidoderm) 1 patch PRN DAILY PRN TP PAIN; Start 11/02/19 at 09:00 Pantoprazole Sodium (Protonix) 20 mg DAILYAC PO ; Start 11/03/19 at 07:30; Status UNV Phenol (Chloraseptic) 1 spray PRN Q6HRS PRN MM SORE THROAT; Start 11/02/19 at 10:15 Piperacillin Sod/ Tazobactam Sod 3.375 gm/Sodium Chloride 50 ml @ 100 mls/hr Q6HRS IV Last administered on 11/05/19 06:30; Start 11/02/19 at 11:00 Vancomycin HCl (Vanco Per Pharmacy) 1 each PRN DAILY PRN MC SEE COMMENTS Last administered on 11/05/19at 07:35; Start 11/02/19 at 10:30 Vancomycin HCl 1 gm/Sodium Chloride 250 ml @ 250 mls/hr Q24H IV Last admi nistered on 11/03/19 22:57; Start 11/02/19 at 22:00; Stop 11/04/19 at 07:00; Status DC Vancomycin HCl (Vancomycin Trough Level) 1 each 1X ONCE MC Last administered on 11/03/19at 21:30; Start 11/03/19 at 21:30; Stop 11/03/19 at 21:31; Status DC Levetiracetam 500 mg/Dextrose 105 ml @ 420 mls/hr Q12HR IV Last administered on 6/23/20at 08:53; Start 11/03/19 at 21:00 Magnesium Sulfate 50 ml @ 25 mls/hr 1X ONCE IV Last administered on 11/03/19at 13:33; Start 11/03/19 at 12:00; Stop 11/03/19 at 13:59; Status DC Sertraline HCl (Zoloft) 50 mg DAILY PO Last administered on 11/05/19at 08:53; Start 11/04/19 at 09:00 Losartan Potassium (Cozaar) 25 mg DAILY NG Last administered on 11/05/19at 08:54; Start 11/03/19 at 14:00; Stop 11/05/19 at 09:40; Status DC Dexmedetomidine HCl 400 mcg/ Sodium Chloride 100 ml @ 0 mls/hr CONT PRN IV PER PROTOCOL Last administered on 11/05/19at 02:05; Start 11/03/19 at 14:00 Sodium Chloride 500 ml @ 500 mls/hr 1X PRN PRN IV SEE COMMENTS; Start 11/03/19 at 14:00 Atropine Sulfate (ATROPINE 0.5mg SYRINGE) 0.5 mg PRN Q5MIN PRN IV SEE COMMENTS; Start 11/03/19 at 14:00 Vancomycin HCl 1 gm/Sodium Chloride 250 ml @ 250 mls/hr Q18H IV Last administered on 11/04/19at 17:54; Start 11/04/19 at 17:00 Vancomycin HCl (Vancomycin Trough Level) 1 each 1X ONCE MC ; Start 11/06/19 at 04:30; Stop 11/06/19 at 04:31 Losartan Potassium (Cozaar) 50 mg DAILY NG Last administered on 11/05/19at 10:01; Start 11/05/19 at 09:45 Active Scripts Active Reported Januvia (Sitagliptin Phosphate) 100 Mg Tablet 1 Tab PO DAILY Pantoprazole Sodium (Pantoprazole Sodium) 40 Mg Tablet. 20 Mg PO DAILYAC Glimepiride 1 Mg Tablet 1 Tab PO DAILY Hydrocodone-Apap 5-325 (Hydrocodone Bit/Acetaminophen) 1 Tab Tablet 1 Tab PO PRN Q6HRS PRN Lisinopril 10 Mg Tablet 1 Tab PO DAILY Acetaminophen 500 Mg Tablet 1 Tab PO BID Trazodone Hcl 50 Mg Tablet 0.5 Tab PO QHS Omeprazole 20 Mg Capsule. 1 Cap PO DAILY Novolog (Insulin Aspart) 100 Unit/1 Ml Cartridge 100 Unit SQ QIDACHS Naproxen 500 Mg Tablet 1 Tab PO PRN Q8HRS PRN Lidocaine PATCH (Lidocaine) 1 Each Adh..patch 1 Each TP DAILY REMOVE AFTER 12 HOURS Latanoprost 2.5 Ml Drops 1 Drop EACHEYE QHS Duoneb 0.5-3(2.5) Mg/3 Ml (Albuterol/Ipratropium) 3 Ml Ampul.neb 3 Ml NEB PRN Q4HRS PRN Imodium A-D (Loperamide HCl) 2 Mg Capsule 2 Mg PO PRN PRN Flonase Allergy Relief (Fluticasone Propionate) 9.9 Ml [place].susp 1 Sprays NS PRN Q12HRS PRN Coreg (Carvedilol) 3.125 Mg Tablet 3.125 Mg PO BIDWMEALS Chloraseptic (Phenol) 20 Ml [place] 1 [place] MM PRN Q6HRS PRN Calcium Citrate 250 Mg Tablet 500 Mg PO DAILY Tylenol (Acetaminophen) 325 Mg Tablet 2 Tab PO PRN Q6HRS PRN Atorvastatin Calcium 10 Mg Tablet 1 Tab PO QHS Proair Respiclick (Albuterol Sulfate) 90 Mcg Aer.pow.ba 1 Puff IH PRN Q6HRS PRN Alendronate Sodium 70 Mg Tablet 1 Tab PO WEEKLY Citalopram Hbr (Citalopram Hydrobromide) 10 Mg Tablet 1.5 Tab PO DAILY Cetirizine Hcl 10 Mg Tablet 1 Tab PO DAILY Guaifenesin 600 Mg Tablet.er 600 Mg PO PRN Q8HRS PRN Clopidogrel (Clopidogrel Bisulfate) 75 Mg Tablet 1 Tab PO DAILY Novolog Flexpen (Insulin Aspart) 100 Unit/1 Ml Insuln.pen 0-3 Unit SQ QIDACHS PATIENT SLIDING SCALE. 70-249= 0 UNITS. 250-400= 3UNITS. BEFORE MEALS AND AT BEDTIME GIVE 3 UNITS IF BLOOD SUGAR 250 OR ABOVE. Diclofenac Sodium 100 Gm Gel..gram. 1 Carlos TP DAILY D3-50 (Cholecalciferol (Vitamin D3)) 50,000 Unit Capsule 50,000 Unit PO DAILY Trazodone Hcl 50 Mg Tablet 0.5 Tab PO QHS Reglan (Metoclopramide Hcl) 5 Mg Tablet 5 Mg PO DAILY Protonix (Pantoprazole Sodium) 20 Mg Tablet.dr 1 Tab PO DAILY [place] 5-325 Tablet (Hydrocodone Bit/Acetaminophen) 1 Each Tablet 1 Tab PO Q4HRS Naproxen 500 Mg Tablet 1 Tab PO Q8HRS Lisinopril 2.5 Mg Tablet 1 Tab PO DAILY Lidocaine PATCH (Lidocaine) 1 Each Adh..patch 1 Each TP DAILY REMOVE AFTER 12 HOURS Lasix (Furosemide) 20 Mg Tablet 1 Tab PO DAILY 30 Days Duoneb 0.5-3(2.5) Mg/3 Ml (Albuterol/Ipratropium) 3 Ml Ampul.neb 3 Ml NEB QID Imodium A-D (Loperamide HCl) 2 Mg Capsule 2 Mg PO DAILY Guaifenesin 400 Mg Tablet 400 Mg PO Q8HRS Coreg (Carvedilol) 3.125 Mg Tablet 3.125 Mg PO BID Clopidogrel (Clopidogrel Bisulfate) 75 Mg Tablet 75 Mg PO DAILY Citalopram Hbr (Citalopram Hydrobromide) 10 Mg Tablet 10 Mg PO DAILY Atorvastatin Calcium 10 Mg Tablet 10 Mg PO DAILY Proair Hfa Inhaler (Albuterol Sulfate) 8.5 Gm Hfa.aer.ad 1 Puff INH PRN Q6HRS Acetaminophen 500 Mg Tablet 1 Tab PO PRN Q6HRS Glimepiride 1 Mg Tablet 1 Mg PO DAILY Simvastatin 40 Mg Tablet 40 Mg PO HS Omeprazole 20 Mg Capsule.dr 20 Mg PO DAILY Januvia (Sitagliptin Phosphate) 100 Mg Tablet 100 Mg PO DAILY Vitals/I & O Vital Sign - Last 24 Hours 11/04/19 11/04/19 11/04/19 11/04/19 11:00 11:30 12:00 12:00 Temp 99.0 99.0 Pulse 54 56 Resp 11 11 B/P (MAP) 166/58 (94) 133/58 (83) Pulse Ox 100 100 100 O2 Delivery Ventilator Ventilator Ventilator Mechanical Ventilator 11/04/19 11/04/19 11/04/19 11/04/19 13:00 14:00 15:00 15:30 Pulse 55 56 56 Resp 12 11 12 B/P (MAP) 154/54 (87) 138/48 (78) 143/59 (87) Pulse Ox 100 100 100 100 O2 Delivery Ventilator Ventilator Ventilator Ventilator 11/04/19 11/04/19 11/04/19 11/04/19 16:00 16:00 17:00 17:00 Temp 98.0 98.0 Pulse 54 53 54 Resp 12 12 B/P (MAP) 153/66 (95) 138/63 (88) Pulse Ox 100 100 O2 Delivery Ventilator Mechanical Ventilator Ventilator 11/04/19 11/04/19 11/04/19 11/04/19 17:55 18:00 18:23 18:25 Pulse 54 Resp 11 B/P (MAP) 168/60 (96) Pulse Ox 98 100 100 100 O2 Delivery Ventilator Ventilator Ventilator Ventilator 11/04/19 11/04/19 11/04/19 11/04/19 19:00 19:40 20:00 20:00 Temp 98.2 98.2 Pulse 53 54 Resp 12 12 B/P (MAP) 159/73 (101) 147/64 (91) Pulse Ox 100 100 100 O2 Delivery Ventilator Ventilator Mechanical Ventilator Ventilator 11/04/19 11/04/19 11/04/19 11/04/19 21:00 22:00 23:00 23:30 Pulse 54 55 54 Resp 12 12 12 B/P (MAP) 151/69 (96) 157/47 (83) 157/68 (97) Pulse Ox 100 100 100 100 O2 Delivery Ventilator Ventilator Ventilator Ventilator 11/05/19 11/05/19 11/05/19 11/05/19 00:00 00:00 01:00 02:00 Temp 99.4 99.4 Pulse 54 51 53 Resp 12 12 12 B/P (MAP) 159/61 (93) 150/69 (96) 162/52 (88) Pulse Ox 100 100 100 O2 Delivery Ventilator Mechanical Ventilator Ventilator Ventilator 11/05/19 11/05/19 11/05/19 11/05/19 03:00 03:15 04:00 04:00 Temp 98.5 98.5 Pulse 56 55 Resp 12 12 B/P (MAP) 162/73 (102) 157/67 (97) Pulse Ox 100 100 100 O2 Delivery Ventilator Ventilator Ventilator Mechanical Ventilator 11/05/19 11/05/19 11/05/19 11/05/19 05:00 06:11 07:00 07:42 Pulse 56 57 56 Resp 12 12 11 B/P (MAP) 156/65 (95) 141/61 (87) 148/62 (90) Pulse Ox 100 100 100 100 O2 Delivery Ventilator Ventilator Ventilator Ventilator 11/05/19 11/05/19 11/05/19 11/05/19 08:00 08:00 08:00 08:54 Temp 98.7 98.7 Pulse 55 56 55 Resp 12 B/P (MAP) 150/94 (112) 158/59 Pulse Ox 100 O2 Delivery Mechanical Ventilator Ventilator 11/05/19 11/05/19 11/05/19 09:00 10:00 10:01 Pulse 56 56 54 Resp 19 19 B/P (MAP) 144/96 (112) 143/59 (87) 151/59 Pulse Ox 100 100 O2 Delivery Ventilator Ventilator Intake and Output 11/04/19 11/04/19 11/05/19 15:00 23:00 07:00 Intake Total 355 ml 2292 ml 1080.1 ml Output Total 200 ml 365 ml 300 ml Balance 155 ml 1927 ml 780.1 ml Justicifation of Admission Dx: Justifications for Admission: Justification of Admission Dx: Yes Respiratory Failure: Mechanical Ventilation Altered Mental Status: Altered Mental Status FERNANDO TOSCANO MD Nov 05, 2019 10:41
[2019-11-05 10:45] LABS: BASE EXCESS ABG 2 mmol/L (-3-3); HCO3 ABG 25 mmol/L (21-28); PCO2 ABG 34 mmHg (35-46); PO2 ABG 127 mmHg (65-108); SAT O2 ABG 98 % (92-99)
[2019-11-05 10:47] LABS: FIO2 ABG 40
[2019-11-05] MEDS: VANCOMYCIN 1 GM in IV NORMAL SALINE 250ML 250 ML IV SCH (11:00)
--- NOTE | 2019-11-05 11:12 | PN ---
DATE: 11/05/2019 SUBJECTIVE: The patient is resting, slightly propped up in bed, in no apparent distress. She is awake, alert, responding appropriately. She continued to be on mechanical ventilation and lightly sedated with ____ with a plan to try to see if she can be weaned off the vent today. Her blood pressure continued to be somewhat high, although she is bradycardic and we did increase losartan to 50 mg once a day. PHYSICAL EXAMINATION: GENERAL: On examining her, she looked pale, no jaundice or cyanosis. No lymphadenopathy, no thyromegaly. No jugular venous distention. No lower limb edema. VITAL SIGNS: Her heart rate was 55, blood pressure 158/59, temperature was 98.5, respiratory rate was 11 and oxygen saturation was 100% on FiO2 of 40%. HEAD, EYES, EARS, NOSE AND THROAT: Showed normocephalic, atraumatic. She has orotracheal and orogastric tube in place. NECK: Supple. CARDIAC: Normal first and second heart sounds. No gallop or murmur. CHEST: Clear to auscultation. No crepitation or rhonchi. ABDOMEN: Distended, soft, nontender. NEUROLOGIC: She is definitely more awake, alert, responding appropriately. All her cranial nerves seem to be intact. She moves all extremities without difficulty. Her intake over the last 24 hours was 1200, output was 2575. LABORATORY DATA: Her chemistry showed a serum sodium 138, potassium 3.6, chloride 103, bicarbonate 29, anion gap of 6, BUN 17, creatinine 1.2, estimated GFR was 43 mL per minute. Her glucose 151, calcium was 7.9. Her hemoglobin was 7.4, hematocrit 22.2. ASSESSMENT: 1. Acute respiratory failure secondary to aspiration pneumonia, for which, intubated and mechanically ventilated. 2. Accelerated hypertension, improved with Cardene drip. She is now on losartan. Her Coreg was on hold given her bradycardia. 3. New onset of tonic-clonic seizures for which she is on Keppra 500 mg IV twice a day. No further episodes of seizures reported. 4. Profound hypokalemia, resolved. Her potassium is 3.6. 5. Troponin was mildly elevated, felt to be secondary to demand ischemia. 6. Acute on chronic systolic function, for which she is on diuretics. PLAN: To proceed with vent weaning. Meanwhile, continue with IV antibiotic in the form of vancomycin and Zosyn. Continue with Keppra for seizure disorder. Continue with DVT prophylaxis, GI prophylaxis. FINESSE GEORGES MD DR: IRISH/shubham JOB#: [id number] / [id number]
[2019-11-05] MEDS ORDERED: RACEPINEPHRINE 2.25% 0.5 ML NEBU. NEB ONE (12:00)
[2019-11-05] MEDS ORDERED: methylPREDNISolone SOD SUCC PF 125 MG/2 ML VIAL. IV ONE (12:00)
[2019-11-05] MEDS ORDERED: FUROSEMIDE 20 MG/2 ML VIAL. IVP STA (12:08)
--- NOTE | 2019-11-05 12:45 | NUR ---
Pt was place on cpap trial @ 1003, 02/16. Repeat ABG called to Dr. Ziegler. Orders were received to extubate pt. Pt extubated @ 1125 and placed on 4LNC. Upon auscultation, pt sounded wheezy bilaterally. Pt instructed to cough and take deep breaths. Around 1200 this RN had just removed the right femoral central line when the pt began to desaturate to the 70s. RT came to bedside and began to bag pt. Pt began to have upper respiratory stridor. Dr. Ziegler was called and orders received to give pt racemic epinephrine and solumedrol stat. Pt compensated with the bag valve mask and was placed on Bipap 100%. Pt's airway sounds course but stridor has corrected.
--- NOTE | 2019-11-05 12:45 | RAD ---
CHEST AP ONLY History: Reason: SOA low sats / Spl. Instructions: / History: Comparison: November 02, 2019 Findings: Increased diffuse interstitial and alveolar opacities. Small left pleural effusion. Normal heart size. No pneumothorax. Postop changes upper abdomen. Impression: 1. Increased diffuse interstitial and alveolar opacities, may represent pulmonary edema or infection such as viral pneumonia. 2. Small left pleural effusion. Electronically signed by: Jacinto Sanchez DO (11/05/2019 12:42 PM) [id number]
--- NOTE | 2019-11-05 13:28 | NUR ---
SS following up with discharge planning. SS reviewed pt chart and discussed with pt RN. Pt currently on BIPAP and IV Zosyn. Pt COVID19 test pending. Pt is LT resident from [facility], ; fax [phone]. SS will continue to follow for discharge planning.
[2019-11-05] MEDS ORDERED: FUROSEMIDE 20 MG/2 ML VIAL. IVP ONE (14:15)
[2019-11-05] MEDS: FUROSEMIDE 20 MG TABLET PO SCH (17:06)
[2019-11-05] MEDS: LATANOPROST 0.005% OPHTH SOLUTION 2.5ML BOTTLE. OU SCH (20:59)
[2019-11-05] MEDS: ATORVASTATIN CALCIUM 10 MG TABLET. PO SCH (20:59)
[2019-11-05] MEDS ORDERED: POTASSIUM CHLORIDE 10MEQ 100 ML IV PRN ×2 (23:45)
[2019-11-05] MEDS ORDERED: POTASSIUM BICARB 20 MEQ EFFERVESCENT TABLET. PO PRN (23:45)
[2019-11-05] MEDS ORDERED: SODIUM PHOSPHATE 40 MMOL in IV NORMAL SALINE 250ML 250 ML IV PRN (23:45)
[2019-11-05] MEDS ORDERED: POTASSIUM PHOS,M-BASIC-D-BASIC 13.6 MMOL in IV NORMAL SALINE 250ML 250 ML IV PRN (23:45)
[2019-11-05] MEDS ORDERED: POTASSIUM CHLORIDE 20MEQ 100 ML IV PRN ×2 (23:45)
[2019-11-05] MEDS ORDERED: POTASSIUM CHLORIDE 20 MEQ TABLET.ER. PO PRN ×3 (23:45)
[2019-11-06] VITALS (16 sets, daily range): BP systolic 116–178; BP diastolic 57–129
[2019-11-06] MEDS ORDERED: MAGNESIUM SULFATE 4GM 100 ML IV PRN
[2019-11-06] MEDS ORDERED: POTASSIUM CHLORIDE 20MEQ 100 ML IV PRN (00:01)
[2019-11-06] MEDS: POTASSIUM CHLORIDE 10MEQ 100 ML IV PRN ×4 (00:26→06:03)
[2019-11-06] MEDS: PIPERACILLIN/TAZOBACTAM 3.375 GM in IV NORMAL SALINE 50ML 50 ML IV SCH ×5 (00:27→23:02)
[2019-11-06] MEDS ORDERED: MAGNESIUM SULFATE 2GM 50 ML IV ONE (01:00)
[2019-11-06] MEDS ORDERED: METOPROLOL TARTRATE 5 MG/5 ML VIAL. IVP ONE ×2 (02:00)
[2019-11-06 05:11] LABS: HEMATOCRIT 23.4 % (36.0-47.0); HEMOGLOBIN 7.8 g/dL (12.0-15.5); RED BLOOD COUNT 2.59 x10^6/uL (3.50-5.40); RED CELL DISTRIBUTION WIDTH 16.5 % (11.5-14.5); WHITE BLOOD COUNT 15.6 x10^3/uL (4.0-11.0)
[2019-11-06 05:46] LABS: ALBUMIN 2.3 g/dL (3.4-5.0); ALBUMIN/GLOBULIN RATIO 0.7 (1.0-1.7); ALK PHOS 50 U/L (46-116); ALT (SGPT) 15 U/L (14-59); ANION GAP 11 (6-14); AST (SGOT) 26 U/L (15-37); BLOOD UREA NITROGEN 21 mg/dL (7-20); BUN/CREATININE RATIO 18 (6-20); CALCIUM 8.2 mg/dL (8.5-10.1); CARBON DIOXIDE 28 mmol/L (21-32); CHLORIDE 101 mmol/L (98-107); CREATININE 1.2 mg/dL (0.6-1.0); GFR 43.2; GLUCOSE 152 mg/dL (70-99); SODIUM 140 mmol/L (136-145); TOTAL BILIRUBIN 0.3 mg/dL (0.2-1.0); TOTAL PROTEIN 5.4 g/dL (6.4-8.2); VANC TR 17.3 mcg/mL (10.0-20.0)
[2019-11-06] MEDS: VANCOMYCIN PER PHARMACY MC PRN ×2 (06:01→11:03)
--- NOTE | 2019-11-06 06:01 | NUR ---
Pharmacy Vancomycin Dosing Note S:Consulted to monitor and dose vancomycin started 11/01/19. O:GUILLERMO JIMENEZ is a 79 year old F with Pneumonia . Height: 5 feet, 4 inches Weight: 59.2 kg [place] Body Weight: 54.70 Adjusted Body Weight: 56.50 Dosing Weight: Actual Other Antibiotics: zosyn 3.375 gm q6hrs LABS: Last BUN: 17 Last Creatinine: 1.2 Creatinine Clearance: 33 mL/min Last WBC: 8.5 Last Procalcitonin: - Tmax (past 24 hours): 99.4 Microbiology: 11/01 PENDING I/O: 3727/ 865 Drug Levels: Last Trough level: 17.3 on 11/06/19 at 0430 Last dose given 11/04/19 at 1754 Vancomycin Dosing: Loading Dose: x1 Dosing Weight: Actual Target Trough: 15-20 A: Based on: TROUGH P: 1. Continue Vancomycin 1000 mg IV q18h 2. Follow up Trough level IF NEEDED 3. Pharmacy will continue to monitor, follow and adjust therapy as needed. GILDA EDDY RPH, 11/06/19 0601 Signed: 11/06/19 at 0602 by GILDA EDDY RPH PHA
[2019-11-06] MEDS: VANCOMYCIN 1 GM in IV NORMAL SALINE 250ML 250 ML IV SCH ×2 (06:05→22:03)
[2019-11-06] MEDS: CARVEDILOL 3.125 MG TABLET. PO SCH ×2 (08:00→16:51)
[2019-11-06] MEDS ORDERED: PATCH REMOVAL. MC PRN (08:00)
[2019-11-06] MEDS: LOSARTAN POTASSIUM 50 MG TABLET. NG SCH (09:00)
[2019-11-06] MEDS: CETIRIZINE HCL 10 MG TABLET. PO SCH (09:00)
[2019-11-06] MEDS ORDERED: POTASSIUM & SODIUM PHOSPHATES PACKET. PO PRN (09:00)
[2019-11-06] MEDS: CHLORHEXIDINE 0.12% 15 ML MOUTHWASH. MM SCH (09:00)
[2019-11-06] MEDS: FUROSEMIDE 40 MG TABLET. PO SCH (09:00)
[2019-11-06] MEDS: SERTRALINE 50 MG TABLET. PO SCH (09:00)
[2019-11-06] MEDS: FAMOTIDINE 20 MG/2 ML VIAL IVP SCH (09:07)
[2019-11-06] MEDS: levETIRAcetam 500 MG in IV DEXTROSE 5% 100ML 100 ML IV SCH ×2 (09:07→20:19)
--- NOTE | 2019-11-06 09:17 | PDOC ---
PROGRESS NOTES Assessment Respiratory failure Seizure, no evidence of recurrence Aspiration pneumonia, severe hypertension, hypokalemia (resolved), elevated troponin, elevated BNP Plan Continue levetiracetam IV, switch to oral if able to swallow EEG and MRI Treatment of medical problems. Subjective No complaints Objective Vital Signs Date Time Temp Pulse Resp B/P (MAP) Pulse Ox O2 Delivery O2 Flow Rate FiO2 11/06/19 08:02 99 Nasal Cannula 2.0 11/06/19 08:00 98.2 74 23 148/65 (92) 98.2 Intake and Output 11/06/19 07:00 Intake Total 757 ml Output Total 1880 ml Balance -1123 ml Intake IV Total 423 ml Tube Feeding 334 ml Output Urine Total 1580 ml Stool Total 300 ml Gastric Drainage Total 0 ml PHYSICAL EXAM Alert. Oriented to place and person, off on date. PERRL. EOMI. CN: no focal findings. Muscle tone: normal. Muscle strength: 5/5 DTR: 2+ Plantar reflex: flexor Gait: not examined in bed. Sensory exam: no abnormal findings. No cerebellar signs elicited. Review of Relevant I have reviewed the following items regina (where applicable) has been applied. Labs Laboratory Tests Test 11/04/19 12:00 11/05/19 06:00 11/05/19 07:40 11/05/19 10:35 Coronavirus (COVID-19)(PCR) Not detected (NOT DETECT.) Hemoglobin 7.4 g/dL (12.0-15.5) Hematocrit 22.2 % (36.0-47.0) Sodium Level 138 mmol/L (136-145) Potassium Level 3.6 mmol/L (3.5-5.1) Chloride Level 103 mmol/L (98-107) Carbon Dioxide Level 29 mmol/L (21-32) Anion Gap 6 (6-14) Blood Urea Nitrogen 17 mg/dL (7-20) Creatinine 1.2 mg/dL (0.6-1.0) Estimated GFR (Cockcroft-Gault) 43.2 Glucose Level 151 mg/dL (70-99) Calcium Level 7.9 mg/dL (8.5-10.1) O2 Saturation 97 % (92-99) 98 % (92-99) Arterial Blood pH 7.48 (7.35-7.45) 7.49 (7.35-7.45) Arterial Blood pCO2 at Patient Temp 37 mmHg (35-46) 34 mmHg (35-46) Arterial Blood pO2 at Patient Temp 111 mmHg (65-108) 127 mmHg (65-108) Arterial Blood HCO3 27 mmol/L (21-28) 25 mmol/L (21-28) Arterial Blood Base Excess 4 mmol/L (-3-3) 2 mmol/L (-3-3) FiO2 40 40 Test 11/05/19 22:58 11/06/19 04:35 Potassium Level 3.4 mmol/L (3.5-5.1) 4.0 mmol/L (3.5-5.1) Magnesium Level 1.9 mg/dL (1.8-2.4) 2.6 mg/dL (1.8-2.4) White Blood Count 15.6 x10^3/uL (4.0-11.0) Red Blood Count 2.59 x10^6/uL (3.50-5.40) Hemoglobin 7.8 g/dL (12.0-15.5) Hematocrit 23.4 % (36.0-47.0) Mean Corpuscular Volume 90 fL (79-100) Mean Corpuscular Hemoglobin 30 pg (25-35) Mean Corpuscular Hemoglobin Concent 33 g/dL (31-37) Red Cell Distribution Width 16.5 % (11.5-14.5) Platelet Count 304 x10^3/uL (140-400) Sodium Level 140 mmol/L (136-145) Chloride Level 101 mmol/L (98-107) Carbon Dioxide Level 28 mmol/L (21-32) Anion Gap 11 (6-14) Blood Urea Nitrogen 21 mg/dL (7-20) Creatinine 1.2 mg/dL (0.6-1.0) Estimated GFR (Cockcroft-Gault) 43.2 BUN/Creatinine Ratio 18 (6-20) Glucose Level 152 mg/dL (70-99) Calcium Level 8.2 mg/dL (8.5-10.1) Total Bilirubin 0.3 mg/dL (0.2-1.0) Aspartate Amino Transf (AST/SGOT) 26 U/L (15-37) Alanine Aminotransferase (ALT/SGPT) 15 U/L (14-59) Alkaline Phosphatase 50 U/L (46-116) Total Protein 5.4 g/dL (6.4-8.2) Albumin 2.3 g/dL (3.4-5.0) Albumin/Globulin Ratio 0.7 (1.0-1.7) Vancomycin Level Trough 17.3 mcg/mL (10.0-20.0) Vancomycin Last Dose Date 11/05/19 Vancomycin Last Dose Time 1100 Laboratory Tests Test 11/05/19 10:35 11/05/19 22:58 11/06/19 04:35 O2 Saturation 98 % (92-99) Arterial Blood pH 7.49 (7.35-7.45) Arterial Blood pCO2 at Patient Temp 34 mmHg (35-46) Arterial Blood pO2 at Patient Temp 127 mmHg (65-108) Arterial Blood HCO3 25 mmol/L (21-28) Arterial Blood Base Excess 2 mmol/L (-3-3) FiO2 40 Potassium Level 3.4 mmol/L (3.5-5.1) 4.0 mmol/L (3.5-5.1) Magnesium Level 1.9 mg/dL (1.8-2.4) 2.6 mg/dL (1.8-2.4) White Blood Count 15.6 x10^3/uL (4.0-11.0) Red Blood Count 2.59 x10^6/uL (3.50-5.40) Hemoglobin 7.8 g/dL (12.0-15.5) Hematocrit 23.4 % (36.0-47.0) Mean Corpuscular Volume 90 fL (79-100) Mean Corpuscular Hemoglobin 30 pg (25-35) Mean Corpuscular Hemoglobin Concent 33 g/dL (31-37) Red Cell Distribution Width 16.5 % (11.5-14.5) Platelet Count 304 x10^3/uL (140-400) Sodium Level 140 mmol/L (136-145) Chloride Level 101 mmol/L (98-107) Carbon Dioxide Level 28 mmol/L (21-32) Anion Gap 11 (6-14) Blood Urea Nitrogen 21 mg/dL (7-20) Creatinine 1.2 mg/dL (0.6-1.0) Estimated GFR (Cockcroft-Gault) 43.2 BUN/Creatinine Ratio 18 (6-20) Glucose Level 152 mg/dL (70-99) Calcium Level 8.2 mg/dL (8.5-10.1) Total Bilirubin 0.3 mg/dL (0.2-1.0) Aspartate Amino Transf (AST/SGOT) 26 U/L (15-37) Alanine Aminotransferase (ALT/SGPT) 15 U/L (14-59) Alkaline Phosphatase 50 U/L (46-116) Total Protein 5.4 g/dL (6.4-8.2) Albumin 2.3 g/dL (3.4-5.0) Albumin/Globulin Ratio 0.7 (1.0-1.7) Vancomycin Level Trough 17.3 mcg/mL (10.0-20.0) Vancomycin Last Dose Date 11/05/19 Vancomycin Last Dose Time 1100 Medications Current Medications Fentanyl Citrate 30 ml @ 0 mls/hr CONT PRN IV SEE PROTOCOL; Start 11/02/19 at 02:45; Status Cancel Propofol 100 ml @ 0 mls/hr CONT PRN IV SEE PROTOCOL; Start 11/02/19 at 02:45; Status Cancel Fentanyl Citrate (Fentanyl 2ml Vial) 25 mcg PRN Q1HR PRN IV SEE COMMENTS; Start 11/02/19 at 02:45; Status Cancel Fentanyl Citrate (Fentanyl 2ml Vial) 50 mcg PRN Q1HR PRN IV SEE COMMENTS; Start 11/02/19 at 02:45; Status Cancel Chlorhexidine Gluconate (Peridex) 15 ml BID MM ; Start 11/02/19 at 09:00; Status Cancel Morphine Sulfate (Morphine Sulfate) 2 mg PRN Q1HR PRN IV SEE COMMENTS.; Start 11/02/19 at 02:45; Status Cancel Morphine Sulfate (Morphine Sulfate) 4 mg PRN Q1HR PRN IV SEE COMMENTS.; Start 11/02/19 at 02:45; Status Cancel Midazolam HCl 100 ml @ 0 mls/hr CONT PRN IV SEE PROTOCOL; Start 11/02/19 at 02:45; Status Cancel Diphenhydramine HCl (Benadryl) 25 mg PRN Q15MIN PRN IVP EPS Symptoms; Start 11/02/19 at 02:45; Status Cancel Nicardipine HCl 50 mg/Sodium Chloride 250 ml @ 25 mls/hr CONT PRN IV SEE I/O RECORD Last administered on 11/02/19at 16:45; Start 11/02/19 at 03:15 Propofol 100 ml @ As Directed STK-MED ONCE IV ; Start 11/02/19 at 02:49; Stop 11/02/19 at 03:22; Status DC Propofol 100 ml @ 0 mls/hr CONT PRN IV SEE PROTOCOL Last administered on 11/03/19at 11:18; Start 11/02/19 at 03:30; Stop 11/03/19 at 13:54; Status DC Fentanyl Citrate (Fentanyl 2ml Vial) 25 mcg PRN Q1HR PRN IV SEE COMMENTS; Start 11/02/19 at 03:30 Fentanyl Citrate (Fentanyl 2ml Vial) 50 mcg PRN Q1HR PRN IV SEE COMMENTS; Start 11/02/19 at 03:30 Chlorhexidine Gluconate (Peridex) 15 ml BID MM Last administered on 11/05/19at 08:54; Start 11/02/19 at 09:00 Famotidine (Pepcid Vial) 20 mg DAILY IVP Last administered on 11/06/19at 09:07; Start 11/02/19 at 09:00 Morphine Sulfate (Morphine Sulfate) 2 mg PRN Q1HR PRN IV SEE COMMENTS. Last administered on 11/04/19at 17:55; Start 11/02/19 at 03:30 Morphine Sulfate (Morphine Sulfate) 4 mg PRN Q1HR PRN IV SEE COMMENTS.; Start 11/02/19 at 03:30 Potassium Bicarbonate (Potassium Effervescent Tablet) 40 meq 1X ONCE PEG Last administered on 11/02/19at 08:38; Start 11/02/19 at 07:30; Stop 11/02/19 at 07:31; Status DC Potassium Bicarbonate (Potassium Effervescent Tablet) 40 meq 1X ONCE PEG Last administered on 11/02/19 10:02; Start 11/02/19 at 08:00; Stop 11/02/19 at 08:01; Status DC Potassium Bicarbonate (Potassium Effervescent Tablet) 40 meq 1X ONCE PEG Last administered on 11/02/19at 10:41; Start 11/02/19 at 09:00; Stop 11/02/19 at 09:01; Status DC Magnesium Sulfate 50 ml @ 25 mls/hr 1X ONCE IV Last administered on 11/02/19at 08:37; Start 11/02/19 at 07:30; Stop 11/02/19 at 09:29; Status DC Famotidine (Pepcid Vial) 20 mg DAILY IVP ; Start 11/02/19 at 09:00; Status UNV Ceftriaxone Sodium (Rocephin) 1 gm Q24H IVP Last administered on 11/04/19at 08:46; Start 11/02/19 at 09:00; Stop 11/04/19 at 15:04; Status DC Levetiracetam 1000 mg/Dextrose 110 ml @ 440 mls/hr Q12HR IV Last administered on 11/03/19at 09:13; Start 11/02/19 at 11:00; Stop 11/03/19 at 09:32; Status DC Acetaminophen (Tylenol) 650 mg PRN Q6HRS PRN PO PAIN; Start 11/02/19 at 10:15 Atorvastatin Calcium (Lipitor) 10 mg QHS PO Last administered on 11/04/19at 21:20; Start 11/02/19 at 21:00 Carvedilol (Coreg) 3.125 mg BIDWMEALS PO Last administered on 11/03/19 08:02; Start 11/02/19 at 11:00 Cetirizine HCl (ZyrTEC) 10 mg DAILY PO Last administered on 11/05/19 08:53; Start 11/02/19 at 11:00 Citalopram Hydrobromide (CeleXA) 15 mg DAILY PO Last administered on 11/03/19at 09:14; Start 11/02/19 at 11:00; Stop 11/03/19 at 13:50; Status DC Clopidogrel Bisulfate (Plavix) 75 mg DAILY PO Last administered on 11/05/19 08:53; Start 11/02/19 at 11:00; Stop 11/05/19 at 15:30; Status DC Diclofenac Sodium (Voltaren) 1 carlos BID PRN TP BREAKTHROUGH PAIN; Start 11/02/19 at 10:15 Furosemide (Lasix) 20 mg QEVNG PO Last administered on 11/04/19at 17:54; Start 11/02/19 at 18:00 Furosemide (Lasix) 40 mg QAM PO Last administered on 11/05/19at 08:54; Start 11/02/19 at 11:00 Albuterol Sulfate (Ventolin Neb Soln) 2.5 mg PRN Q4HRS PRN NEB SHORTNESS OF BREATH; Start 11/02/19 at 10:30 Latanoprost (Xalatan) 1 drop QHS OU Last administered on 11/05/19at 20:59; Start 11/02/19 at 21:00 Lidocaine (Lidoderm) 1 patch PRN DAILY PRN TP PAIN; Start 11/02/19 at 09:00 Pantoprazole Sodium (Protonix) 20 mg DAILYAC PO ; Start 11/03/19 at 07:30; Status UNV Phenol (Chloraseptic) 1 spray PRN Q6HRS PRN MM SORE THROAT; Start 11/02/19 at 10:15 Piperacillin Sod/ Tazobactam Sod 3.375 gm/Sodium Chloride 50 ml @ 100 mls/hr Q6HRS IV Last administered on 11/06/19at 06:11; Start 11/02/19 at 11:00 Vancomycin HCl (Vanco Per Pharmacy) 1 each PRN DAILY PRN MC SEE COMMENTS Last administered on 11/06/19at 06:01; Start 11/02/19 at 10:30 Vancomycin HCl 1 gm/Sodium Chloride 250 ml @ 250 mls/hr Q24H IV Last administered on 11/03/19at 22:57; Start 11/02/19 at 22:00; Stop 11/04/19 at 07:00; Status DC Vancomycin HCl (Vancomycin Trough Level) 1 each 1X ONCE MC Last administered on 11/03/19at 21:30; Start 11/03/19 at 21:30; Stop 11/03/19 at 21:31; Status DC Levetiracetam 500 mg/Dextrose 105 ml @ 420 mls/hr Q12HR IV Last administered on 11/06/19at 09:07; Start 11/03/19 at 21:00 Magnesium Sulfate 50 ml @ 25 mls/hr 1X ONCE IV Last administered on 11/03/19at 13:33; Start 11/03/19 at 12:00; Stop 11/03/19 at 13:59; Status DC Sertraline HCl (Zoloft) 50 mg DAILY PO Last administered on 11/05/19at 08:53; Start 11/04/19 at 09:00 Losartan Potassium (Cozaar) 25 mg DAILY NG Last administered on 11/05/19at 08:54; Start 11/03/19 at 14:00; Stop 11/05/19 at 09:40; Status DC Dexmedetomidine HCl 400 mcg/ Sodium Chloride 100 ml @ 0 mls/hr CONT PRN IV PER PROTOCOL Last administered on 11/05/19at 02:05; Start 11/03/19 at 14:00 Sodium Chloride 500 ml @ 500 mls/hr 1X PRN PRN IV SEE COMMENTS; Start 11/03/19 at 14:00 Atropine Sulfate (ATROPINE 0.5mg SYRINGE) 0.5 mg PRN Q5MIN PRN IV SEE COMMENTS; Start 11/03/19 at 14:00 Vancomycin HCl 1 gm/Sodium Chloride 250 ml @ 250 mls/hr Q18H IV Last administered on 11/06/19at 06:05; Start 11/04/19 at 17:00 Vancomycin HCl (Vancomycin Trough Level) 1 each 1X ONCE MC Last administered on 11/06/19at 04:30; Start 11/06/19 at 04:30; Stop 11/06/19 at 04:31; Status DC Losartan Potassium (Cozaar) 50 mg DAILY NG Last administered on 11/05/19at 10:01; Start 11/05/19 at 09:45 Epinephrine (S2 Racepinephrine) 0.5 ml 1X ONCE NEB Last administered on 11/05/19at 12:00; Start 11/05/19 at 12:00; Stop 11/05/19 at 12:01; Status DC Methylprednisolone Sodium Succinate (SOLU-Medrol 125MG VIAL) 100 mg 1X ONCE IV Last administered on 11/05/19at 12:15; Start 11/05/19 at 12:00; Stop 11/05/19 at 12:01; Status DC Furosemide (Lasix) 20 mg 1X STAT IVP Last administered on 11/05/19at 12:14; Start 11/05/19 at 12:08; Stop 11/05/19 at 12:12; Status DC Furosemide (Lasix) 20 mg 1X ONCE IVP Last administered on 11/05/19at 14:26; Start 11/05/19 at 14:15; Stop 11/05/19 at 14:16; Status DC Clopidogrel Bisulfate (Plavix) 75 mg DAILY PO ; Start 11/07/19 at 11:00 Metoprolol Tartrate (Lopressor Vial) 5 mg ONCE ONCE IVP Last administered on 11/05/19at 23:56; Start 11/06/19 at 00:00; Stop 11/06/19 at 00:01; Status DC Potassium Chloride (Klor-Con) 40 meq 1X PRN PRN PO PER PROTOCOL; Start 11/05/19 at 23:45 Potassium Bicarbonate (Potassium Effervescent Tablet) 40 meq 1X PRN PRN PO PER PROTOCOL; Start 11/05/19 at 23:45 Potassium Chloride/Water 100 ml @ 100 mls/hr PRN Q1HR PRN IV PER PROTOCOL Last administered on 11/06/19at 06:03; Start 11/05/19 at 23:45; Stop 11/06/19 at 06:11; Status DC Potassium Chloride/Water 100 ml @ 100 mls/hr PRN Q1HR PRN IV PER PROTOCOL; Start 11/05/19 at 23:45 Potassium Chloride (Klor-Con) 40 meq PRN Q2HRS PRN PO PER PROTOCOL; Start 11/05/19 at 23:45 Potassium Chloride/Water 100 ml @ 100 mls/hr PRN Q1HR PRN IV PER PROTOCOL; Start 11/05/19 at 23:45 Potassium Chloride/Water 100 ml @ 100 mls/hr PRN Q1HR PRN IV PER PROTOCOL; Start 11/05/19 at 23:45; Stop 11/06/19 at 07:44; Status DC Potassium Chloride (Klor-Con) 40 meq PRN Q2HRS PRN PO PER PROTOCOL; Start 11/05/19 at 23:45 Potassium Chloride/Water 100 ml @ 100 mls/hr PRN Q1HR PRN IV PER PROTOCOL; Start 11/05/19 at 23:45 Potassium Chloride/Water 100 ml @ 100 mls/hr PRN Q1HR PRN IV PER PROTOCOL; Start 11/06/19 at 00:01; Stop 11/06/19 at 07:44; Status DC Magnesium Sulfate 100 ml @ 50 mls/hr PRN DAILY PRN IV PER PROTOCOL; Start 11/06/19 at 00:00 Potassium Phos/ Sodium Phos (Phos-Nak) 1 pkt PRN BID PRN PO PER PROTOCOL; Start 11/06/19 at 09:00 Sodium Phosphate 40 mmol/Sodium Chloride 263.3333 ml @ 62.5 mls/hr 1X PRN PRN IV PER PROTOCOL; Start 6/23/20 at 23:45 Potassium Phosphate 13.6 mmol/Sodium Chloride 254.5333 ml @ 62.5 mls/hr PRN Q4HRS PRN IV PER PROTOCOL; Start 11/05/19 at 23:45 Magnesium Sulfate 50 ml @ 25 mls/hr 1X ONCE IV Last administered on 11/06/19at 00:31; Start 11/06/19 at 01:00; Stop 11/06/19 at 02:59; Status DC Metoprolol Tartrate (Lopressor Vial) 5 mg 1X ONCE IVP Last administered on 11/06/19at 01:52; Start 11/06/19 at 02:00; Stop 11/06/19 at 02:01; Status DC Miscellaneous (Lidoderm Patch Removal) 1 ea PRN QHS PRN MC SEE COMMENTS; Start 11/06/19 at 08:00 Active Scripts Active Reported Januvia (Sitagliptin Phosphate) 100 Mg Tablet 1 Tab PO DAILY Pantoprazole Sodium (Pantoprazole Sodium) 40 Mg Tablet. 20 Mg PO DAILYAC Glimepiride 1 Mg Tablet 1 Tab PO DAILY Hydrocodone-Apap 5-325 (Hydrocodone Bit/Acetaminophen) 1 Tab Tablet 1 Tab PO PRN Q6HRS PRN Lisinopril 10 Mg Tablet 1 Tab PO DAILY Acetaminophen 500 Mg Tablet 1 Tab PO BID Trazodone Hcl 50 Mg Tablet 0.5 Tab PO QHS Omeprazole 20 Mg Capsule. 1 Cap PO DAILY Novolog (Insulin Aspart) 100 Unit/1 Ml Cartridge 100 Unit SQ QIDACHS Naproxen 500 Mg Tablet 1 Tab PO PRN Q8HRS PRN Lidocaine PATCH (Lidocaine) 1 Each Adh..patch 1 Each TP DAILY REMOVE AFTER 12 HOURS Latanoprost 2.5 Ml Drops 1 Drop EACHEYE QHS Duoneb 0.5-3(2.5) Mg/3 Ml (Albuterol/Ipratropium) 3 Ml Ampul.neb 3 Ml NEB PRN Q4HRS PRN Imodium A-D (Loperamide HCl) 2 Mg Capsule 2 Mg PO PRN PRN Flonase Allergy Relief (Fluticasone Propionate) 9.9 Ml [place].susp 1 Sprays NS PRN Q12HRS PRN Coreg (Carvedilol) 3.125 Mg Tablet 3.125 Mg PO BIDWMEALS Chloraseptic (Phenol) 20 Ml [place] 1 [place] MM PRN Q6HRS PRN Calcium Citrate 250 Mg Tablet 500 Mg PO DAILY Tylenol (Acetaminophen) 325 Mg Tablet 2 Tab PO PRN Q6HRS PRN Atorvastatin Calcium 10 Mg Tablet 1 Tab PO QHS Proair Respiclick (Albuterol Sulfate) 90 Mcg Aer.pow.ba 1 Puff IH PRN Q6HRS PRN Alendronate Sodium 70 Mg Tablet 1 Tab PO WEEKLY Citalopram Hbr (Citalopram Hydrobromide) 10 Mg Tablet 1.5 Tab PO DAILY Cetirizine Hcl 10 Mg Tablet 1 Tab PO DAILY Guaifenesin 600 Mg Tablet.er 600 Mg PO PRN Q8HRS PRN Clopidogrel (Clopidogrel Bisulfate) 75 Mg Tablet 1 Tab PO DAILY Novolog Flexpen (Insulin Aspart) 100 Unit/1 Ml Insuln.pen 0-3 Unit SQ QIDACHS PATIENT SLIDING SCALE. 70-249= 0 UNITS. 250-400= 3UNITS. BEFORE MEALS AND AT BEDTIME GIVE 3 UNITS IF BLOOD SUGAR 250 OR ABOVE. Diclofenac Sodium 100 Gm Gel..gram. 1 Carlos TP DAILY D3-50 (Cholecalciferol (Vitamin D3)) 50,000 Unit Capsule 50,000 Unit PO DAILY Trazodone Hcl 50 Mg Tablet 0.5 Tab PO QHS Reglan (Metoclopramide Hcl) 5 Mg Tablet 5 Mg PO DAILY Protonix (Pantoprazole Sodium) 20 Mg Tablet.dr 1 Tab PO DAILY [place] 5-325 Tablet (Hydrocodone Bit/Acetaminophen) 1 Each Tablet 1 Tab PO Q4HRS Naproxen 500 Mg Tablet 1 Tab PO Q8HRS Lisinopril 2.5 Mg Tablet 1 Tab PO DAILY Lidocaine PATCH (Lidocaine) 1 Each Adh..patch 1 Each TP DAILY REMOVE AFTER 12 HOURS Lasix (Furosemide) 20 Mg Tablet 1 Tab PO DAILY 30 Days Duoneb 0.5-3(2.5) Mg/3 Ml (Albuterol/Ipratropium) 3 Ml Ampul.neb 3 Ml NEB QID Imodium A-D (Loperamide HCl) 2 Mg Capsule 2 Mg PO DAILY Guaifenesin 400 Mg Tablet 400 Mg PO Q8HRS Coreg (Carvedilol) 3.125 Mg Tablet 3.125 Mg PO BID Clopidogrel (Clopidogrel Bisulfate) 75 Mg Tablet 75 Mg PO DAILY Citalopram Hbr (Citalopram Hydrobromide) 10 Mg Tablet 10 Mg PO DAILY Atorvastatin Calcium 10 Mg Tablet 10 Mg PO DAILY Proair Hfa Inhaler (Albuterol Sulfate) 8.5 Gm Hfa.aer.ad 1 Puff INH PRN Q6HRS Acetaminophen 500 Mg Tablet 1 Tab PO PRN Q6HRS Glimepiride 1 Mg Tablet 1 Mg PO DAILY Simvastatin 40 Mg Tablet 40 Mg PO HS Omeprazole 20 Mg Capsule.dr 20 Mg PO DAILY Januvia (Sitagliptin Phosphate) 100 Mg Tablet 100 Mg PO DAILY Vitals/I & O Vital Sign - Last 24 Hours 11/05/19 11/05/19 11/05/19 11/05/19 10:00 10:01 10:03 11:00 Pulse 56 54 56 Resp 19 11 B/P (MAP) 143/59 (87) 151/59 134/64 (87) Pulse Ox 100 100 O2 Delivery Ventilator Ventilator Ventilator 11/05/19 11/05/19 11/05/19 11/05/19 11:25 12:00 12:00 12:10 Temp 99.0 99.0 Pulse 150 Resp 33 B/P (MAP) 240/107 (151) Pulse Ox 86 89 O2 Delivery Nasal Cannula Bi-pap Bag Valve Mask Nasal Cannula O2 Flow Rate 3.0 6.0 11/05/19 11/05/19 11/05/19 11/05/19 12:15 13:00 14:00 15:00 Pulse 83 81 78 Resp 24 23 25 B/P (MAP) 106/37 (60) 123/48 (73) 140/71 (94) Pulse Ox 93 100 100 100 O2 Delivery BiPAP/CPAP BiPAP/CPAP BiPAP/CPAP BiPAP/CPAP 11/05/19 11/05/19 11/05/19 11/05/19 15:30 16:00 16:00 17:00 Temp 98.2 98.2 Pulse 77 76 Resp 22 B/P (MAP) 139/66 (90) 140/52 (81) Pulse Ox 100 100 100 O2 Delivery BiPAP/CPAP Bi-pap BiPAP/CPAP BiPAP/CPAP 11/05/19 11/05/19 11/05/19 11/05/19 18:00 18:01 19:00 20:00 Pulse 77 78 Resp 21 21 B/P (MAP) 136/56 (82) 140/51 (80) Pulse Ox 100 100 100 O2 Delivery BiPAP/CPAP BiPAP/CPAP BiPAP/CPAP Bi-pap 11/05/19 11/05/19 11/05/19 11/05/19 20:00 21:00 22:00 23:00 Pulse 84 78 94 84 Resp B/P (MAP) 124/49 (74) 131/53 (79) 143/54 (83) 140/68 (92) Pulse Ox 100 100 100 99 O2 Delivery BiPAP/CPAP BiPAP/CPAP Nasal Cannula Nasal Cannula O2 Flow Rate 3.0 3.0 11/05/19 11/05/19 11/06/19 11/06/19 23:56 23:59 00:00 01:00 Pulse 86 76 88 Resp B/P (MAP) 155/63 155/63 (93) 144/58 (86) Pulse Ox 100 99 O2 Delivery Nasal Cannula Nasal Cannula Nasal Cannula O2 Flow Rate 3.0 2.0 2.0 11/06/19 11/06/19 11/06/19 11/06/19 01:52 02:05 03:00 04:00 Pulse 71 68 76 76 Resp 23 B/P (MAP) 136/63 136/67 (90) 116/63 (80) 154/71 (98) Pulse Ox 100 99 98 O2 Delivery Nasal Cannula Nasal Cannula Nasal Cannula O2 Flow Rate 2.0 2.0 2.0 11/06/19 11/06/19 11/06/19 11/06/19 04:00 05:00 06:00 07:00 Temp 98.3 98.3 Pulse 72 79 81 Resp B/P (MAP) 139/70 (93) 143/70 (94) 145/58 (87) Pulse Ox 99 98 99 O2 Delivery Nasal Cannula Nasal Cannula Nasal Cannula Nasal Cannula O2 Flow Rate 3.0 2.0 2.0 2.0 11/06/19 11/06/19 11/06/19 07:49 08:00 08:02 Temp 98.2 98.2 Pulse 74 Resp 23 B/P (MAP) 148/65 (92) Pulse Ox 98 99 O2 Delivery Nasal Cannula Nasal Cannula Nasal Cannula O2 Flow Rate 2.0 2.0 2.0 Intake and Output 11/05/19 11/05/19 11/06/19 15:00 23:00 07:00 Intake Total 757 ml Output Total 495 ml 750 ml 635 ml Balance 262 ml -750 ml -635 ml Justicifation of Admission Dx: Justifications for Admission: Justification of Admission Dx: Yes Respiratory Failure: Mechanical Ventilation Altered Mental Status: Altered Mental Status FERNANDO TOSCANO MD Nov 06, 2019 09:17
--- NOTE | 2019-11-06 09:34 | PDOC ---
PROGRESS NOTES Subjective Subjective COVERING FOR DR GEORGES Objective Objective Vital Signs Date Time Temp Pulse Resp B/P (MAP) Pulse Ox O2 Delivery O2 Flow Rate FiO2 11/06/19 09:00 85 20 147/57 (87) 99 Nasal Cannula 2.0 11/06/19 08:00 98.2 98.2 Intake and Output 11/06/19 07:00 Intake Total 757 ml Output Total 1880 ml Balance -1123 ml Intake IV Total 423 ml Tube Feeding 334 ml Output Urine Total 1580 ml Stool Total 300 ml Gastric Drainage Total 0 ml Physical Exam Abdomen: Soft Heart: Regular rate Extremities: No clubbing General: Alert, Other (Intubated and sedated) HEENT: Atraumatic Lungs: Normal air movement, Other (Decreased air entry bases) Neck: Supple Psych/Mental Status: Mood NL Skin: No breakdown Assessment Assessment ASSESSMENT: 1. Acute respiratory failure secondary to aspiration pneumonia, for which, intubated and mechanically ventilated. 2. Accelerated hypertension, improved with Cardene drip. She is now on losartan. Her Coreg was on hold given her bradycardia. 3. New onset of tonic-clonic seizures for which she is on Keppra 500 mg IV twice a day. No further episodes of seizures reported. 4. Profound hypokalemia, resolved. Her potassium is 3.6. 5. Troponin was mildly elevated, felt to be secondary to demand ischemia. 6. Acute on chronic systolic function, for which she is on diuretics. PLAN: Pt extubated EEG today. iv antibiotics cxr sukhdev lung infiltrates. wbc 14,other labs ok spoke with staff transfer out of icu. . Meanwhile, continue with IV antibiotic in the form of vancomycin and Zosyn. Continue with Keppra for seizure disorder. Continue with DVT prophylaxis, GI prophylaxis. Comment Review of Relevant I have reviewed the following items regina (where applicable) has been applied. Labs Laboratory Tests Test 11/05/19 10:35 11/05/19 22:58 11/06/19 04:35 O2 Saturation 98 % (92-99) Arterial Blood pH 7.49 (7.35-7.45) Arterial Blood pCO2 at Patient Temp 34 mmHg (35-46) Arterial Blood pO2 at Patient Temp 127 mmHg (65-108) Arterial Blood HCO3 25 mmol/L (21-28) Arterial Blood Base Excess 2 mmol/L (-3-3) FiO2 40 Potassium Level 3.4 mmol/L (3.5-5.1) 4.0 mmol/L (3.5-5.1) Magnesium Level 1.9 mg/dL (1.8-2.4) 2.6 mg/dL (1.8-2.4) White Blood Count 15.6 x10^3/uL (4.0-11.0) Red Blood Count 2.59 x10^6/uL (3.50-5.40) Hemoglobin 7.8 g/dL (12.0-15.5) Hematocrit 23.4 % (36.0-47.0) Mean Corpuscular Volume 90 fL (79-100) Mean Corpuscular Hemoglobin 30 pg (25-35) Mean Corpuscular Hemoglobin Concent 33 g/dL (31-37) Red Cell Distribution Width 16.5 % (11.5-14.5) Platelet Count 304 x10^3/uL (140-400) Sodium Level 140 mmol/L (136-145) Chloride Level 101 mmol/L (98-107) Carbon Dioxide Level 28 mmol/L (21-32) Anion Gap 11 (6-14) Blood Urea Nitrogen 21 mg/dL (7-20) Creatinine 1.2 mg/dL (0.6-1.0) Estimated GFR (Cockcroft-Gault) 43.2 BUN/Creatinine Ratio 18 (6-20) Glucose Level 152 mg/dL (70-99) Calcium Level 8.2 mg/dL (8.5-10.1) Total Bilirubin 0.3 mg/dL (0.2-1.0) Aspartate Amino Transf (AST/SGOT) 26 U/L (15-37) Alanine Aminotransferase (ALT/SGPT) 15 U/L (14-59) Alkaline Phosphatase 50 U/L (46-116) Total Protein 5.4 g/dL (6.4-8.2) Albumin 2.3 g/dL (3.4-5.0) Albumin/Globulin Ratio 0.7 (1.0-1.7) Vancomycin Level Trough 17.3 mcg/mL (10.0-20.0) Vancomycin Last Dose Date 11/05/19 Vancomycin Last Dose Time 1100 Medications Current Medications Clopidogrel Bisulfate (Plavix) 75 mg DAILY PO ; Start 11/07/19 at 11:00 Epinephrine (S2 Racepinephrine) 0.5 ml 1X ONCE NEB Last administered on 11/05/19at 12:00; Start 11/05/19 at 12:00; Stop 11/05/19 at 12:01; Status DC Furosemide (Lasix) 20 mg 1X ONCE IVP Last administered on 11/05/19at 14:26; Start 11/05/19 at 14:15; Stop 11/05/19 at 14:16; Status DC Furosemide (Lasix) 20 mg 1X STAT IVP Last administered on 11/05/19at 12:14; St art 11/05/19 at 12:08; Stop 11/05/19 at 12:12; Status DC Losartan Potassium (Cozaar) 50 mg DAILY NG Last administered on 11/05/19at 10:01; Start 11/05/19 at 09:45 Magnesium Sulfate 50 ml @ 25 mls/hr 1X ONCE IV Last administered on 11/06/19at 00:31; Start 11/06/19 at 01:00; Stop 11/06/19 at 02:59; Status DC Magnesium Sulfate 100 ml @ 50 mls/hr PRN DAILY PRN IV PER PROTOCOL; Start 11/06/19 at 00:00 Methylprednisolone Sodium Succinate (SOLU-Medrol 125MG VIAL) 100 mg 1X ONCE IV Last administered on 11/05/19at 12:15; Start 11/05/19 at 12:00; Stop 11/05/19 at 12:01; Status DC Metoprolol Tartrate (Lopressor Vial) 5 mg 1X ONCE IVP Last administered on 11/06/19at 01:52; Start 11/06/19 at 02:00; Stop 11/06/19 at 02:01; Status DC Metoprolol Tartrate (Lopressor Vial) 5 mg ONCE ONCE IVP Last administered on 11/05/19at 23:56; Start 11/06/19 at 00:00; Stop 11/06/19 at 00:01; Status DC Miscellaneous (Lidoderm Patch Removal) 1 ea PRN QHS PRN MC SEE COMMENTS; Start 11/06/19 at 08:00 Potassium Bicarbonate (Potassium Effervescent Tablet) 40 meq 1X PRN PRN PO PER PROTOCOL; Start 11/05/19 at 23:45 Potassium Chloride/Water 100 ml @ 100 mls/hr PRN Q1HR PRN IV PER PROTOCOL Last administered on 11/06/19at 06:03; Start 11/05/19 at 23:45; Stop 11/06/19 at 06:11; Status DC Potassium Chloride/Water 100 ml @ 100 mls/hr PRN Q1HR PRN IV PER PROTOCOL; Start 11/05/19 at 23:45; Stop 11/06/19 at 07:44; Status DC Potassium Chloride/Water 100 ml @ 100 mls/hr PRN Q1HR PRN IV PER PROTOCOL; Start 11/05/19 at 23:45 Potassium Chloride/Water 100 ml @ 100 mls/hr PRN Q1HR PRN IV PER PROTOCOL; Start 11/05/19 at 23:45 Potassium Chloride/Water 100 ml @ 100 mls/hr PRN Q1HR PRN IV PER PROTOCOL; Start 11/05/19 at 23:45 Potassium Chloride/Water 100 ml @ 100 mls/hr PRN Q1HR PRN IV PER PROTOCOL; Start 11/06/19 at 00:01; Stop 11/06/19 at 07:44; Status DC Potassium Phosphate 13.6 mmol/Sodium Chloride 254.5333 ml @ 62.5 mls/hr PRN Q4HRS PRN IV PER PROTOCOL; Start 11/05/19 at 23:45 Potassium Chloride (Klor-Con) 40 meq 1X PRN PRN PO PER PROTOCOL; Start 11/05/19 at 23:45 Potassium Chloride (Klor-Con) 40 meq PRN Q2HRS PRN PO PER PROTOCOL; Start 11/05/19 at 23:45 Potassium Chloride (Klor-Con) 40 meq PRN Q2HRS PRN PO PER PROTOCOL; Start 11/05/19 at 23:45 Potassium Phos/ Sodium Phos (Phos-Nak) 1 pkt PRN BID PRN PO PER PROTOCOL; Start 11/06/19 at 09:00 Sodium Phosphate 40 mmol/Sodium Chloride 263.3333 ml @ 62.5 mls/hr 1X PRN PRN IV PER PROTOCOL; Start 11/05/19 at 23:45 Vancomycin HCl (Vancomycin Trough Level) 1 each 1X ONCE MC Last administered on 11/06/19at 04:30; Start 11/06/19 at 04:30; Stop 11/06/19 at 04:31; Status DC Vitals/I & O Vital Sign - Last 24 Hours 11/05/19 11/05/19 11/05/19 11/05/19 10:00 10:01 10:03 11:00 Pulse 56 54 56 Resp 19 11 B/P (MAP) 143/59 (87) 151/59 134/64 (87) Pulse Ox 100 100 O2 Delivery Ventilator Ventilator Ventilator 11/05/19 11/05/19 11/05/19 11/05/19 11:25 12:00 12:00 12:10 Temp 99.0 99.0 Pulse 150 Resp 33 B/P (MAP) 240/107 (151) Pulse Ox 86 89 O2 Delivery Nasal Cannula Bi-pap Bag Valve Mask Nasal Cannula O2 Flow Rate 3.0 6.0 11/05/19 11/05/19 11/05/19 11/05/19 12:15 13:00 14:00 15:00 Pulse 83 81 78 Resp 25 B/P (MAP) 106/37 (60) 123/48 (73) 140/71 (94) Pulse Ox 93 100 100 100 O2 Delivery BiPAP/CPAP BiPAP/CPAP BiPAP/CPAP BiPAP/CPAP 11/05/19 11/05/19 11/05/19 11/05/19 15:30 16:00 16:00 17:00 Temp 98.2 98.2 Pulse 77 76 Resp B/P (MAP) 139/66 (90) 140/52 (81) Pulse Ox 100 100 100 O2 Delivery BiPAP/CPAP Bi-pap BiPAP/CPAP BiPAP/CPAP 11/05/19 11/05/19 11/05/19 11/05/19 18:00 18:01 19:00 20:00 Pulse 77 78 Resp B/P (MAP) 136/56 (82) 140/51 (80) Pulse Ox 100 100 100 O2 Delivery BiPAP/CPAP BiPAP/CPAP BiPAP/CPAP Bi-pap 11/05/19 11/05/19 11/05/19 11/05/19 20:00 21:00 22:00 23:00 Pulse 84 78 94 84 Resp 19 B/P (MAP) 124/49 (74) 131/53 (79) 143/54 (83) 140/68 (92) Pulse Ox 100 100 100 99 O2 Delivery BiPAP/CPAP BiPAP/CPAP Nasal Cannula Nasal Cannula O2 Flow Rate 3.0 3.0 11/05/19 11/05/19 11/06/19 11/06/19 23:56 23:59 00:00 01:00 Pulse 86 76 88 Resp B/P (MAP) 155/63 155/63 (93) 144/58 (86) Pulse Ox 100 99 O2 Delivery Nasal Cannula Nasal Cannula Nasal Cannula O2 Flow Rate 3.0 2.0 2.0 11/06/19 11/06/19 11/06/19 11/06/19 01:52 02:05 03:00 04:00 Pulse 71 68 76 76 Resp B/P (MAP) 136/63 136/67 (90) 116/63 (80) 154/71 (98) Pulse Ox 100 99 98 O2 Delivery Nasal Cannula Nasal Cannula Nasal Cannula O2 Flow Rate 2.0 2.0 2.0 11/06/19 11/06/19 11/06/19 11/06/19 04:00 05:00 06:00 07:00 Temp 98.3 98.3 Pulse 72 79 81 Resp B/P (MAP) 139/70 (93) 143/70 (94) 145/58 (87) Pulse Ox 99 98 99 O2 Delivery Nasal Cannula Nasal Cannula Nasal Cannula Nasal Cannula O2 Flow Rate 3.0 2.0 2.0 2.0 11/06/19 11/06/19 11/06/19 11/06/19 07:49 08:00 08:02 09:00 Temp 98.2 98.2 Pulse 74 85 Resp B/P (MAP) 148/65 (92) 147/57 (87) Pulse Ox 98 99 99 O2 Delivery Nasal Cannula Nasal Cannula Nasal Cannula Nasal Cannula O2 Flow Rate 2.0 2.0 2.0 2.0 Intake and Output 11/05/19 11/05/19 11/06/19 15:00 23:00 07:00 Intake Total 757 ml Output Total 495 ml 750 ml 635 ml Balance 262 ml -750 ml -635 ml Justicifation of Admission Dx: Justifications for Admission: Justification of Admission Dx: Yes Respiratory Failure: Mechanical Ventilation Altered Mental Status: Altered Mental Status Nutrition Consultation Dietary Evaluation: Recommendations by RD: Dietary education by RD Comments: Pt is tolerating TF, rec continue at this time Expected Outcomes/Goals: to meet >75% est nutr needs via nutrition support Malnutrition Findings: Body Fat Depletion (Non Severe: Mild Depletion Weight Status: Underweight RAYRAY MA MD Nov 06, 2019 09:34
--- NOTE | 2019-11-06 09:45 | PDOC ---
PULMONARY PROGRESS NOTES Subjective Extubated 11/04 developed flash pulmonary edema post extubation from hypertensive urgency Rx with lasix/ bipap MUCH IMPROVED Vitals Vital Signs Date Time Temp Pulse Resp B/P (MAP) Pulse Ox O2 Delivery O2 Flow Rate FiO2 11/06/19 09:00 85 20 147/57 (87) 99 Nasal Cannula 2.0 11/06/19 08:00 98.2 98.2 Comments AWAKE, FOLLOWING COMMANDS, OFF BIPAP ROS: No Chest Pain, No Abdominal Pain General: Alert Lungs: Clear Cardiovascular: S1 Abdomen: Soft Neuro Exam: Alert Extremities: No Edema Skin: Warm Labs Laboratory Tests Test 11/04/19 12:00 11/05/19 06:00 11/05/19 07:40 11/05/19 10:35 Coronavirus (COVID-19)(PCR) Not detected (NOT DETECT.) Hemoglobin 7.4 g/dL (12.0-15.5) Hematocrit 22.2 % (36.0-47.0) Sodium Level 138 mmol/L (136-145) Potassium Level 3.6 mmol/L (3.5-5.1) Chloride Level 103 mmol/L (98-107) Carbon Dioxide Level 29 mmol/L (21-32) Anion Gap 6 (6-14) Blood Urea Nitrogen 17 mg/dL (7-20) Creatinine 1.2 mg/dL (0.6-1.0) Estimated GFR (Cockcroft-Gault) 43.2 Glucose Level 151 mg/dL (70-99) Calcium Level 7.9 mg/dL (8.5-10.1) O2 Saturation 97 % (92-99) 98 % (92-99) Arterial Blood pH 7.48 (7.35-7.45) 7.49 (7.35-7.45) Arterial Blood pCO2 at Patient Temp 37 mmHg (35-46) 34 mmHg (35-46) Arterial Blood pO2 at Patient Temp 111 mmHg (65-108) 127 mmHg (65-108) Arterial Blood HCO3 27 mmol/L (21-28) 25 mmol/L (21-28) Arterial Blood Base Excess 4 mmol/L (-3-3) 2 mmol/L (-3-3) FiO2 40 40 Test 11/05/19 22:58 11/06/19 04:35 Potassium Level 3.4 mmol/L (3.5-5.1) 4.0 mmol/L (3.5-5.1) Magnesium Level 1.9 mg/dL (1.8-2.4) 2.6 mg/dL (1.8-2.4) White Blood Count 15.6 x10^3/uL (4.0-11.0) Red Blood Count 2.59 x10^6/uL (3.50-5.40) Hemoglobin 7.8 g/dL (12.0-15.5) Hematocrit 23.4 % (36.0-47.0) Mean Corpuscular Volume 90 fL (79-100) Mean Corpuscular Hemoglobin 30 pg (25-35) Mean Corpuscular Hemoglobin Concent 33 g/dL (31-37) Red Cell Distribution Width 16.5 % (11.5-14.5) Platelet Count 304 x10^3/uL (140-400) Sodium Level 140 mmol/L (136-145) Chloride Level 101 mmol/L (98-107) Carbon Dioxide Level 28 mmol/L (21-32) Anion Gap 11 (6-14) Blood Urea Nitrogen 21 mg/dL (7-20) Creatinine 1.2 mg/dL (0.6-1.0) Estimated GFR (Cockcroft-Gault) 43.2 BUN/Creatinine Ratio 18 (6-20) Glucose Level 152 mg/dL (70-99) Calcium Level 8.2 mg/dL (8.5-10.1) Total Bilirubin 0.3 mg/dL (0.2-1.0) Aspartate Amino Transf (AST/SGOT) 26 U/L (15-37) Alanine Aminotransferase (ALT/SGPT) 15 U/L (14-59) Alkaline Phosphatase 50 U/L (46-116) Total Protein 5.4 g/dL (6.4-8.2) Albumin 2.3 g/dL (3.4-5.0) Albumin/Globulin Ratio 0.7 (1.0-1.7) Vancomycin Level Trough 17.3 mcg/mL (10.0-20.0) Vancomycin Last Dose Date 11/05/19 Vancomycin Last Dose Time 1100 Laboratory Tests Test 11/05/19 10:35 11/05/19 22:58 11/06/19 04:35 O2 Saturation 98 % (92-99) Arterial Blood pH 7.49 (7.35-7.45) Arterial Blood pCO2 at Patient Temp 34 mmHg (35-46) Arterial Blood pO2 at Patient Temp 127 mmHg (65-108) Arterial Blood HCO3 25 mmol/L (21-28) Arterial Blood Base Excess 2 mmol/L (-3-3) FiO2 40 Potassium Level 3.4 mmol/L (3.5-5.1) 4.0 mmol/L (3.5-5.1) Magnesium Level 1.9 mg/dL (1.8-2.4) 2.6 mg/dL (1.8-2.4) White Blood Count 15.6 x10^3/uL (4.0-11.0) Red Blood Count 2.59 x10^6/uL (3.50-5.40) Hemoglobin 7.8 g/dL (12.0-15.5) Hematocrit 23.4 % (36.0-47.0) Mean Corpuscular Volume 90 fL (79-100) Mean Corpuscular Hemoglobin 30 pg (25-35) Mean Corpuscular Hemoglobin Concent 33 g/dL (31-37) Red Cell Distribution Width 16.5 % (11.5-14.5) Platelet Count 304 x10^3/uL (140-400) Sodium Level 140 mmol/L (136-145) Chloride Level 101 mmol/L (98-107) Carbon Dioxide Level 28 mmol/L (21-32) Anion Gap 11 (6-14) Blood Urea Nitrogen 21 mg/dL (7-20) Creatinine 1.2 mg/dL (0.6-1.0) Estimated GFR (Cockcroft-Gault) 43.2 BUN/Creatinine Ratio 18 (6-20) Glucose Level 152 mg/dL (70-99) Calcium Level 8.2 mg/dL (8.5-10.1) Total Bilirubin 0.3 mg/dL (0.2-1.0) Aspartate Amino Transf (AST/SGOT) 26 U/L (15-37) Alanine Aminotransferase (ALT/SGPT) 15 U/L (14-59) Alkaline Phosphatase 50 U/L (46-116) Total Protein 5.4 g/dL (6.4-8.2) Albumin 2.3 g/dL (3.4-5.0) Albumin/Globulin Ratio 0.7 (1.0-1.7) Vancomycin Level Trough 17.3 mcg/mL (10.0-20.0) Vancomycin Last Dose Date 11/05/19 Vancomycin Last Dose Time 1100 Medications Active Scripts Medications Dose Route/Sig Max Daily Dose Days Date Category Dose Instructions Januvia (Sitagliptin Phosphate) 100 Mg Tablet 1 Tab PO DAILY 11/02/19 Reported Pantoprazole Sodium (Pantoprazole Sodium) 40 Mg Tablet.dr 20 Mg PO DAILYAC 11/02/19 Reported Glimepiride 1 Mg Tablet 1 Tab PO DAILY 11/02/19 Reported Hydrocodone-Apap 5-325 (Hydrocodone Bit/Acetaminophen) 1 Tab Tablet 1 Tab PO PRN Q6HRS PRN 11/02/19 Reported Lisinopril 10 Mg Tablet 1 Tab PO DAILY 11/02/19 Reported Acetaminophen 500 Mg Tablet 1 Tab PO BID 11/30/18 Reported Trazodone Hcl 50 Mg Tablet 0.5 Tab PO QHS 11/30/18 Reported Omeprazole 20 Mg Capsule.dr 1 Cap PO DAILY 11/30/18 Reported Novolog (Insulin Aspart) 100 Unit/1 Ml Cartridge 100 Unit SQ QIDACHS 11/30/18 Reported Naproxen 500 Mg Tablet 1 Tab PO PRN Q8HRS PRN 11/30/18 Reported Lidocaine PATCH (Lidocaine) 1 Each Adh..patch 1 Each TP DAILY 11/30/18 Reported REMOVE AFTER 12 HOURS Latanoprost 2.5 Ml Drops 1 Drop EACHEYE QHS 11/30/18 Reported Duoneb 0.5-3(2.5) Mg/3 Ml (Albuterol/Ipratropium) 3 Ml Ampul.neb 3 Ml NEB PRN Q4HRS PRN 11/30/18 Reported Imodium A-D (Loperamide HCl) 2 Mg Capsule 2 Mg PO PRN PRN 11/30/18 Reported Flonase Allergy Relief (Fluticasone Propionate) 9.9 Ml Winton.susp 1 Sprays NS PRN Q12HRS PRN 11/30/18 Reported Coreg (Carvedilol) 3.125 Mg Tablet 3.125 Mg PO BIDWMEALS 11/30/18 Reported Chloraseptic (Phenol) 20 Ml Winton 1 Winton MM PRN Q6HRS PRN 11/30/18 Reported Calcium Citrate 250 Mg Tablet 500 Mg PO DAILY 11/30/18 Reported Tylenol (Acetaminophen) 325 Mg Tablet 2 Tab PO PRN Q6HRS PRN 11/30/18 Reported Atorvastatin Calcium 10 Mg Tablet 1 Tab PO QHS 11/30/18 Reported Proair Respiclick (Albuterol Sulfate) 90 Mcg Aer.pow.ba 1 Puff IH PRN Q6HRS PRN 01/18/17 Reported Alendronate Sodium 70 Mg Tablet 1 Tab PO WEEKLY 01/18/17 Reported Citalopram Hbr (Citalopram Hydrobromide) 10 Mg Tablet 1.5 Tab PO DAILY 01/18/17 Reported Cetirizine Hcl 10 Mg Tablet 1 Tab PO DAILY 01/18/17 Reported Guaifenesin 600 Mg Tablet.er 600 Mg PO PRN Q8HRS PRN 01/18/17 Reported Clopidogrel (Clopidogrel Bisulfate) 75 Mg Tablet 1 Tab PO DAILY 01/18/17 Reported Novolog Flexpen (Insulin Aspart) 100 Unit/1 Ml Insuln.pen 0-3 Unit SQ QIDACHS 10/25/19 Reported PATIENT SLIDING SCALE. 70-249= 0 UNITS. 250-400= 3UNITS. BEFORE MEALS AND AT BEDTIME GIVE 3 UNITS IF BLOOD SUGAR 250 OR ABOVE. Diclofenac Sodium 100 Gm Gel..gram. 1 Carlos TP DAILY 10/25/19 Reported D3-50 (Cholecalciferol (Vitamin D3)) 50,000 Unit Capsule 50,000 Unit PO DAILY 10/25/19 Reported Trazodone Hcl 50 Mg Tablet 0.5 Tab PO QHS 10/25/19 Reported Reglan (Metoclopramide Hcl) 5 Mg Tablet 5 Mg PO DAILY 10/25/19 Reported Protonix (Pantoprazole Sodium) 20 Mg Tablet.dr 1 Tab PO DAILY 10/25/19 Reported [place] 5-325 Tablet (Hydrocodone Bit/Acetaminophen) 1 Each Tablet 1 Tab PO Q4HRS 10/25/19 Reported Naproxen 500 Mg Tablet 1 Tab PO Q8HRS 10/25/19 Reported Lisinopril 2.5 Mg Tablet 1 Tab PO DAILY 10/25/19 Reported Lidocaine PATCH (Lidocaine) 1 Each Adh..patch 1 Each TP DAILY 10/25/19 Reported REMOVE AFTER 12 HOURS Lasix (Furosemide) 20 Mg Tablet 1 Tab PO DAILY 30 10/25/19 Reported Duoneb 0.5-3(2.5) Mg/3 Ml (Albuterol/Ipratropium) 3 Ml Ampul.neb 3 Ml NEB QID 10/25/19 Reported Imodium A-D (Loperamide HCl) 2 Mg Capsule 2 Mg PO DAILY 10/25/19 Reported Guaifenesin 400 Mg Tablet 400 Mg PO Q8HRS 10/25/19 Reported Coreg (Carvedilol) 3.125 Mg Tablet 3.125 Mg PO BID 10/25/19 Reported Clopidogrel (Clopidogrel Bisulfate) 75 Mg Tablet 75 Mg PO DAILY 10/25/19 Reported Citalopram Hbr (Citalopram Hydrobromide) 10 Mg Tablet 10 Mg PO DAILY 10/25/19 Reported Atorvastatin Calcium 10 Mg Tablet 10 Mg PO DAILY 10/25/19 Reported Proair Hfa Inhaler (Albuterol Sulfate) 8.5 Gm Hfa.aer.ad 1 Puff INH PRN Q6HRS 10/25/19 Reported Acetaminophen 500 Mg Tablet 1 Tab PO PRN Q6HRS 10/25/19 Reported Glimepiride 1 Mg Tablet 1 Mg PO DAILY 07/05/14 Reported Simvastatin 40 Mg Tablet 40 Mg PO HS 07/05/14 Reported Omeprazole 20 Mg Capsule.dr 20 Mg PO DAILY 07/05/14 Reported Januvia (Sitagliptin Phosphate) 100 Mg Tablet 100 Mg PO DAILY 07/05/14 Reported Comments CXR 11/04 worsening CHF Impression . IMPRESSION: 1. Acute respiratory failure, multifactorial in etiology. Extubated 11/04 /de veloped flash pulmonary edema post extubation from hypertensive urgency Rx with lasix/ bipap, MUCH IMPROVED 2. New-onset seizure. EEG today 3. Acute diastolic congestive heart failure, rule out myocardial infarction, less likely pneumonia. 4. Abnormal chest x-ray. 5. Electrolyte abnormality. 6. Hypertensive urgency. 7. Diabetes mellitus. 8. COVID-19 Neg Plan . PLAN AND RECOMMENDATIONS: 1. Titrate FiO2 to keep O2 saturation 94%.,m off BIPAP 2. Repeat CXR 3. Replace potassium and magnesium. 4. Monitor troponin. 5. follow Neurology rec, on keppra, mri of brain. 7. Pepcid for stress ulcer prophylaxis. 8. SCDs for DVT prophylaxis. 9. The findings and recommendations were discussed with RN and RT. 10. echo today discussed w rn, rt critically ill cc time 30 min no overlap DEXTER HANNAH MD Nov 06, 2019 09:45
--- NOTE | 2019-11-06 11:34 | RAD ---
AP portable chest radiograph 11/06/2019 Clinical History: CHF. An AP erect portable digital radiograph of the chest was obtained. Comparison study is dated 11/05/2019. The cardiac silhouette is mildly enlarged. Atherosclerotic calcification thoracic aorta is seen. The thoracic aorta is mildly tortuous. Surgical clips overlie the GE junction. Bilateral perihilar infiltrates are seen consistent most likely with pulmonary edema from CHF. They have improved since the previous examination. There is a small left pleural effusion. No pneumothorax is seen. The osseous structures are unchanged. IMPRESSION: Interval improvement in the bilateral perihilar infiltrates. Electronically signed by: Christiano Falcon MD (11/06/2019 11:31 AM) [id number]
--- NOTE | 2019-11-06 11:49 | PDOC ---
ANNITA FORTUNE CCNP 11/06/19 1149: CARDIO Progress Notes Date and Time Date of Service 11/06/2019 Time of Evaluation 1110 Subjective Subjective: No Chest Pain, No shortness of breath, No Palpitations Vitals Vitals Vital Signs Date Time Temp Pulse Resp B/P (MAP) Pulse Ox O2 Delivery O2 Flow Rate FiO2 11/06/19 09:00 85 20 147/57 (87) 99 Nasal Cannula 2.0 11/06/19 08:00 98.2 98.2 Weight Weight [ ] Input and Output Intake and Output Intake and Output 11/06/19 06:59 Intake Total 757 ml Output Total 1820 ml Balance -1063 ml Intake IV Total 423 ml Tube Feeding 334 ml Output Urine Total 1520 ml Stool Total 300 ml Gastric Drainage Total 0 ml Laboratory Labs Laboratory Tests Test 11/05/19 22:58 11/06/19 04:35 Potassium Level 3.4 mmol/L (3.5-5.1) 4.0 mmol/L (3.5-5.1) Magnesium Level 1.9 mg/dL (1.8-2.4) 2.6 mg/dL (1.8-2.4) White Blood Count 15.6 x10^3/uL (4.0-11.0) Red Blood Count 2.59 x10^6/uL (3.50-5.40) Hemoglobin 7.8 g/dL (12.0-15.5) Hematocrit 23.4 % (36.0-47.0) Mean Corpuscular Volume 90 fL (79-100) Mean Corpuscular Hemoglobin 30 pg (25-35) Mean Corpuscular Hemoglobin Concent 33 g/dL (31-37) Red Cell Distribution Width 16.5 % (11.5-14.5) Platelet Count 304 x10^3/uL (140-400) Sodium Level 140 mmol/L (136-145) Chloride Level 101 mmol/L (98-107) Carbon Dioxide Level 28 mmol/L (21-32) Anion Gap 11 (6-14) Blood Urea Nitrogen 21 mg/dL (7-20) Creatinine 1.2 mg/dL (0.6-1.0) Estimated GFR (Cockcroft-Gault) 43.2 BUN/Creatinine Ratio 18 (6-20) Glucose Level 152 mg/dL (70-99) Calcium Level 8.2 mg/dL (8.5-10.1) Total Bilirubin 0.3 mg/dL (0.2-1.0) Aspartate Amino Transf (AST/SGOT) 26 U/L (15-37) Alanine Aminotransferase (ALT/SGPT) 15 U/L (14-59) Alkaline Phosphatase 50 U/L (46-116) Total Protein 5.4 g/dL (6.4-8.2) Albumin 2.3 g/dL (3.4-5.0) Albumin/Globulin Ratio 0.7 (1.0-1.7) Vancomycin Level Trough 17.3 mcg/mL (10.0-20.0) Vancomycin Last Dose Date 11/05/19 Vancomycin Last Dose Time 1100 Physical Exam HEENT: Neck Supple W Full Motion Chest: Symmetric LUNGS: Other (diminished, basilar crackles) Heart: RRR (SR) Abdomen: Soft N/T Extremities: No Calf Tenderness, Other (1+ bilateral Le pitting edema) Neurology: alert, follow commands, other (periods of confusion) Assessment Assessment 1. Accelerated hypertension: BP better controlled 2. New onset seizure disorder: on keppra per neurology 3. Acute respiratory failure, multifactorial: s/p intubation, treat per pulmonary team. COVID test negative 4. Acute on chronic diastolic heart failure: appears better 5. Slightly elevated troponin level, most probably demand ischemia: 6. paroxysmal Torsades: started occuring again overnight. K and Mg are normal 7. Asymptomatic SB: lowest 50s. none further, no pauses 8. Normocytic anemia: hgb trending down to 7.8 with no overt bleed 9. Protein malnutrition 10. Hx of LE PAD: hence on plavix with past stenting in 2017 11. CAD?: unclear no known LHC or stents Recommendations TTE and EKG today, will note QTc. Possible preexcitation syndrome. Remains NPO. lopressor IV for arrhythmia suippression and monitor for any bradycardia. Excellent UOP 75-100 ml/hr. Hold any further lasix. Will try to obtain cardiac records from [facility]. Monitor Hgb and will restart plavix tomorrow when able to take PO. Allergy to ASA. Will consider for outpt ischemic workup. Justicifation of Admission Dx: Justifications for Admission: Justification of Admission Dx: Yes Respiratory Failure: Mechanical Ventilation Altered Mental Status: Altered Mental Status ASHELY SANCHES MD 11/06/19 1653: CARDIO Progress Notes Assessment Assessment Patient seen and examined. Agree with LIME KILN TENDER's assessment and plan. s/p extubation yesterday, had flash pulmonary edema that resolved with intravenous Lasix Acute on chronic diastolic heart failure better compensated Slight troponin elevation demand ischemia Telemetry showed few more episodes of brief torsades Agree with intravenous beta-blockers Check 2D echocardiogram today We will consider ischemic evaluation as an outpatient ANNITA FORTUNE APRN Nov 06, 2019 11:49 ASHELY SANCHES MD Nov 06, 2019 16:53
[2019-11-06] MEDS: METOPROLOL TARTRATE 5 MG/5 ML VIAL. IVP SCH ×3 (12:13→23:08)
--- NOTE | 2019-11-06 12:14 | EEG ---
DATE OF SERVICE: 11/06/2019 EEG NUMBER: [id number] OBJECTIVE: The patient is an 79-year-old female with new seizure. DESCRIPTION: This is a digital study. Electrodes are placed according to the international 10-20 system. Bipolar and referential montages are available. Activation procedures typically include hyperventilation and intermittent photic stimulation. INTERPRETATION: The waking background consists of 8 Hz, 50-100 microvolt activity, symmetrically distributed over parietooccipital regions and reactive to eye opening. Hyperventilation and intermittent photic stimulation are noncontributory. Stage 1 sleep is achieved with normal electroencephalogram patterns. IMPRESSION: This electroencephalogram with the patient awake and asleep is within normal limits. There is no focal, paroxysmal, or epileptiform activity. Thank you for letting us help with the patient's care. FERNANDO TOSCANO MD DR: NAHID/shubham JOB#: [id number] / [id number]
--- NOTE | 2019-11-06 12:27 | PDOC2 ---
GI CONSULT Reason For Consult: anemia HPI: HPI: 79 y/o female transferred from [facility] on 11/01 s/p seizure w/ resp failure. COVID testing was negative, is now extubated. We are asked to see re: anemia w/o obvious bleeding per nurse. Hgb was 9.9 on 11/01 and has drifted in 7s (7.8 today). MCV, plt, INR are WNL. BUN has been normal - slightly elevated at 21 today w/ Cr 1.2. Per nurse, sometimes mental status is appropriate, sometimes confused. The patient denies GI complaints to me. I asked about h/o anemia, h/o GERD, obvious bleeding, and past 'scopes - "nope!" Summary list shows omeprazole, pantoprazole, Naproxen, and Plavix. Has been on IV Pepcid here. 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 Bone marrow biopsy results from 01/2017: peripheral blood with no diagnostic abnormalities, normocellular bone marrow with trilineage hematopoiesis, mild dyserythropoiesis, and small population of monoclonal kappa plasma cells, decreased stainable iron. PMH: PMH: CHF, HTN, COPD, DM, HLD, osteoporosis, depression, chronic pain, glaucoma, breast cancer, dementia, MGUS right mastectomy, bone marrow biopsy, VIH repair FH: Family History: No pertinent hx Social History: ALCOHOL: none Drugs: None ROS: Difficult to obtain - denies pain. Vitals: Vitals: Vital Signs Date Time Temp Pulse Resp B/P (MAP) Pulse Ox O2 Delivery O2 Flow Rate FiO2 11/06/19 12:13 88 150/72 11/06/19 11:00 20 94 Nasal Cannula 2.0 11/06/19 08:00 98.2 98.2 Labs: Labs: Laboratory Tests Test 11/05/19 22:58 11/06/19 04:35 Potassium Level 3.4 mmol/L (3.5-5.1) 4.0 mmol/L (3.5-5.1) Magnesium Level 1.9 mg/dL (1.8-2.4) 2.6 mg/dL (1.8-2.4) White Blood Count 15.6 x10^3/uL (4.0-11.0) Red Blood Count 2.59 x10^6/uL (3.50-5.40) Hemoglobin 7.8 g/dL (12.0-15.5) Hematocrit 23.4 % (36.0-47.0) Mean Corpuscular Volume 90 fL (79-100) Mean Corpuscular Hemoglobin 30 pg (25-35) Mean Corpuscular Hemoglobin Concent 33 g/dL (31-37) Red Cell Distribution Width 16.5 % (11.5-14.5) Platelet Count 304 x10^3/uL (140-400) Sodium Level 140 mmol/L (136-145) Chloride Level 101 mmol/L (98-107) Carbon Dioxide Level 28 mmol/L (21-32) Anion Gap 11 (6-14) Blood Urea Nitrogen 21 mg/dL (7-20) Creatinine 1.2 mg/dL (0.6-1.0) Estimated GFR (Cockcroft-Gault) 43.2 BUN/Creatinine Ratio 18 (6-20) Glucose Level 152 mg/dL (70-99) Calcium Level 8.2 mg/dL (8.5-10.1) Total Bilirubin 0.3 mg/dL (0.2-1.0) Aspartate Amino Transf (AST/SGOT) 26 U/L (15-37) Alanine Aminotransferase (ALT/SGPT) 15 U/L (14-59) Alkaline Phosphatase 50 U/L (46-116) Total Protein 5.4 g/dL (6.4-8.2) Albumin 2.3 g/dL (3.4-5.0) Albumin/Globulin Ratio 0.7 (1.0-1.7) Vancomycin Level Trough 17.3 mcg/mL (10.0-20.0) Vancomycin Last Dose Date 11/05/19 Vancomycin Last Dose Time 1100 Allergies: Coded Allergies: Iodinated Contrast Media (Verified Allergy, Intermediate, 01/18/17) aspirin (Verified Allergy, Intermediate, Nausea and Vomiting, 12/03/18) and rash metformin (Verified Allergy, Intermediate, Rash, 12/03/18) corn (Verified Adverse Reaction, Intermediate, diarrhea, 01/18/17) levofloxacin (Verified Adverse Reaction, Intermediate, Diarrhea, 01/18/17) veloz (Verified Adverse Reaction, Mild, DIARRHEA WITH GREEN BEANS, 11/03/19) Medications: Current Medications Medications (Trade) Dose Ordered Sig/Timo Route PRN Reason Start Time Stop Time Status Last Admin Dose Admin Vancomycin HCl (Vancomycin Trough Level) 1 each 1X ONCE 11/06/19 04:30 11/06/19 04:31 DC 11/06/19 04:30 Furosemide (Lasix) 20 mg 1X ONCE IVP 11/05/19 14:15 11/05/19 14:16 DC 11/05/19 14:26 Metoprolol Tartrate (Lopressor Vial) 5 mg ONCE ONCE IVP 11/06/19 00:00 11/06/19 00:01 DC 11/05/19 23:56 Potassium Chloride/Water 100 ml @ 100 mls/hr PRN Q1HR PRN IV PER PROTOCOL 11/05/19 23:45 11/06/19 06:11 DC 11/06/19 06:03 Magnesium Sulfate 50 ml @ 25 mls/hr 1X ONCE IV 11/06/19 01:00 11/06/19 02:59 DC 11/06/19 00:31 Metoprolol Tartrate (Lopressor Vial) 5 mg 1X ONCE IVP 11/06/19 02:00 11/06/19 02:01 DC 11/06/19 01:52 Metoprolol Tartrate (Lopressor Vial) 5 mg Q6HRS IVP 11/06/19 12:00 11/06/19 12:13 Imaging: Imaging: CXR 11/01 IMPRESSION: 1. Small left pleural effusion. Retrocardiac atelectasis or infiltrate. 2. Mild pulmonary edema. CXR 11/04 Impression: 1. Increased diffuse interstitial and alveolar opacities, may represent pulmonary edema or infection such as viral pneumonia. 2. Small left pleural effusion. CXR 11/05 IMPRESSION: Interval improvement in the bilateral perihilar infiltrates. EEG 11/05 IMPRESSION: This electroencephalogram with the patient awake and asleep is within normal limits. There is no focal, paroxysmal, or epileptiform activity. PE: GEN: NAD - watching the news - "my stories aren't on!" HEENT: Atraumatic, PERRL LUNGS: diminished anteriorly, NC 2L HEART: RRR ABD: quiet, possible vague upper abdominal discomfort, soft EXTREMITY: No edema SKIN: No rashes, no jaundice NEURO/PSYCH: awake and alert - knows the year in 2019, says she's at [facility], says Arnoldo is president A/P: A/P: Seizure - no recurrence Resp failure - extubated 11/04, abnormal CXR, COVID negative Normocytic anemia H/o GERD H/o dementia -- Past bone marrow biopsy as above. Checking anemia parameters. Monitor Hgb, observe for bleeding. 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 Will check w/ office for any past 'scopes. MARKOS PATINO Nov 06, 2019 12:27
--- NOTE | 2019-11-06 14:04 | EKG ---
[facility] [address] [place] [address] Test Date: 2019-11-06 Test Time: 14:01:43 Pat Name: GUILLERMO JIMENEZ Department: Room: 112 1 Gender: F Educational Assistant: MERON : 1940 Requested By: ANNITA FORTUNE Order Number: [id number] Reading MD: Measurements Intervals [place] Rate: 79 P: -90 NM: 360 QRS: 70 QRSD: 84 T: 155 QT: 372 QTc: 433 Interpretive Statements SINUS RHYTHM PROLONGED NM INTERVAL T ABNORMALITY IN ANTERIOR LEADS LATERAL LEADS ABNORMAL ECG RI6.02 Compared to ECG 11/04/2019 12:04:00 First degree AV block now present Prolonged QT interval no longer present T-wave abnormality still present
[2019-11-06] MEDS: CYANOCOBALAMIN (VITAMIN B-12) 1,000 MCG/ML VIAL IM SCH (14:30)
--- NOTE | 2019-11-06 14:37 | NUR ---
SS following up with discharge planning. SS reviewed pt chart and discussed with pt RN. Pt is LTC resident from [facility], ; fax [phone]. Pt COVID19 negative. Pt requiring oxygen and on IV Zosyn. Pt transferring to room 204. Pt's daughter requesting to be DPOA but pt too confused to sign today. SS will continue to follow for discharge planning.
--- NOTE | 2019-11-06 15:32 | RAD ---
BRAIN W/O CONTRAST History:Reason: seizure / Spl. Instructions: / History: Technique: Multiplanar, multi sequential MR imaging was performed of the brain without contrast. Comparison: CT November 01, 2019 Findings: Confluent FLAIR hyperintense signal within the bilateral posterior parietal occipital subcortical white matter. Linear increased diffusion weighted signal within the right parietal lobe within this region. No intracranial hemorrhage. No mass effect. No hydrocephalus. Additional foci of FLAIR hyperintensity within the hemispheric white matter, most often due to chronic microvascular ischemia. No signal abnormality correlating with the previously mentioned hypodensity in the region of the caudate lobe, likely related to artifact. Imaged orbits are unremarkable. Imaged paranasal sinuses and mastoid air cells are clear. Impression: 1. Signal abnormality within the posterior parietal and occipital subcortical white matter, may represent posterior reversible encephalopathy syndrome. Recommend follow-up. Electronically signed by: Jacinto Sanchez DO (11/06/2019 3:29 PM) [id number]
--- NOTE | 2019-11-06 15:52 | NUR ---
Rec'd from ICU oxygen on admission 87-88% on 2L/nc increased to 3L/nc, sat level 90%, increased to 4L/nc, continues to mouth breathe, spoke Carmelina, RT, increased to 5L/nc, HOB elevated to 45 degrees. Alert to self, rectal tube & roy catheter patent, bed rails wrapped for seizure precautions, call light in reach, watching TV at present
--- NOTE | 2019-11-06 17:23 | CARD ---
MR#: [id number] Date of Study: 11/06/2019 Ordering Physician: DEXTER HANNAH, Referring Physician: DEXTER HANNAH, Tech: Jodi Cheatham APPROVED REPORT EXAM: Two-dimensional and M-mode echocardiogram with Doppler and color Doppler. Other Information Quality : AverageHR: 100bpm INDICATION COPD Cardiac Disease: CAD RISK FACTORS Hypertension Hyperlipidemia Diabetes 2D DIMENSIONS RVDd3.1 (2.9-3.5cm)Left Atrium(2D)4.0 (1.6-4.0cm) IVSd1.2 (0.7-1.1cm)Aortic Root(2D)2.9 (2.0-3.7cm) LVDd4.7 (3.9-5.9cm)LVOT Diameter2.0 (1.8-2.4cm) PWd1.2 (0.7-1.1cm)LVDs3.5 (2.5-4.0cm) FS (%) 25.8 %SV52.9 ml LVEF(%)50.7 (>50%) Aortic Valve AoV Peak Dimitris.112.8cm/sAoV VTI21.4cm AO Peak GR.5.1mmHgLVOT VTI 15.49cm AO Mean GR.3mmHg Mitral Valve MV E Duweoecv486.7cm/sMV E Peak Gr.116mmHg MV DECEL [id number] A Cgghuexc04.3cm/s MV E Mean Gr.3mmHgE/A Ratio1.4 TDI Lateral E' P. V7.59cm/sMedial E' P. V5.28cm/s E/Lateral E'16.3E/Medial E'23.4 Tricuspid Valve TR P. [id number]/sRAP [id number] TR Peak Gr.[id number] LEFT VENTRICLE The left ventricle is normal size. There is mild concentric left ventricular hypertrophy. The left ve ntricular systolic function is severely impaired. The Ejection Fraction is 25%. There is global hypok inesis of the left ventricle. Transmitral Doppler flow pattern is Grade II-pseudonormal filling dynam ics. RIGHT VENTRICLE The right ventricle is normal size. There is normal right ventricular wall thickness. The right ventr icular systolic function is normal. ATRIA The left atrium size is normal. The right atrium size is normal. The interatrial septum is intact wit h no evidence for an atrial septal defect or patent foramen ovale as noted on 2-D or Doppler imaging. AORTIC VALVE The aortic valve is normal in structure and function. Doppler and Color Flow revealed trace aortic re gurgitation. There is no significant aortic valvular stenosis. MITRAL VALVE The mitral valve is normal in structure and function. There is no evidence of mitral valve prolapse. There is no mitral valve stenosis. The mitral valve mean gradient is 2.53 mmHg. Doppler and Color-juan carlos w revealed mild to moderate mitral regurgitation. TRICUSPID VALVE The tricuspid valve is normal in structure and function. Doppler and Color Flow revealed moderate to severe tricuspid regurgitation with an estimated PAP of 83 mmHg. There is severe pulmonary hypertensi on. There is no tricuspid valve stenosis. PULMONIC VALVE The pulmonic valve is not well visualized. Doppler and Color Flow revealed no pulmonic valvular regur gitation. GREAT VESSELS The aortic root is normal in size. The IVC is normal in size and collapses >50% with inspiration. PERICARDIAL EFFUSION There is no evidence of significant pericardial effusion. Critical Notification Critical Value: No <Conclusion> The left ventricular systolic function is severely impaired. The Ejection Fraction is 25%. Transmitral Doppler flow pattern is Grade II-pseudonormal filling dynamics. Mild to moderate mitral regurgitation. Moderate to severe tricuspid regurgitation with an estimated PAP of 83 mmHg. There is severe pulmonary hypertension. There is no evidence of significant pericardial effusion. Signed by : Alex Casillas, Electronically Approved : 11/06/2019 17:22:20
--- NOTE | 2019-11-06 17:26 | NUR ---
Unable to maintain O2 level, rec'd call from Rian Mann for Lasix 40mg IV X1, MPI stress test cancelled, vital signs 152/61-108-24, sat level 88-90% with 50% 15L Venti mask, CarmelinaRT at bedside monitoring level
[2019-11-06] MEDS ORDERED: FUROSEMIDE 40 MG/4 ML VIAL. IVP ONE (17:30)
[2019-11-06] MEDS: FUROSEMIDE 20 MG TABLET PO SCH (17:36)
--- NOTE | 2019-11-06 18:18 | NUR ---
Went to assess had taken oxygen off replaced oxygen, level slowly increasing to 91% on Venturi mask, will continue to observe.
--- NOTE | 2019-11-06 18:33 | NUR ---
Continues to take off oxygen, mitten placed on right hand to prevent removing of oxygen, level 91% at this time, will continue to observe
[2019-11-06] MEDS: MORPHINE SULFATE 4 MG/ML VIAL. IV PRN ×2 (19:40→22:50)
[2019-11-06] MEDS: ATORVASTATIN CALCIUM 10 MG TABLET. PO SCH (20:19)
[2019-11-06] MEDS: LATANOPROST 0.005% OPHTH SOLUTION 2.5ML BOTTLE. OU SCH (20:32)
[2019-11-07] VITALS (7 sets, daily range): BP systolic 136–154; BP diastolic 61–79
[2019-11-07] MEDS: PIPERACILLIN/TAZOBACTAM 3.375 GM in IV NORMAL SALINE 50ML 50 ML IV SCH ×4 (05:10→23:47)
[2019-11-07 05:13] LABS: BASO % 0 % (0-3); EOS % 0 % (0-3); HEMATOCRIT 23.6 % (36.0-47.0); HEMOGLOBIN 7.9 g/dL (12.0-15.5); LYMPH # 1.5 x10^3/uL (1.0-4.8); LYMPH % 8 % (24-48); MEAN CORPUSCULAR HEMOGLOBIN 30 pg (25-35); MEAN CORPUSCULAR HGB CONC 34 g/dL (31-37); MEAN CORPUSCULAR VOLUME 91 fL (79-100); MONO # 2.5 x10^3/uL (0.0-1.1); MONO % 13 % (0-9); NEUT # 15.6 x10^3/uL (1.8-7.7); NEUT % 79 % (31-73); PLATELET COUNT 361 x10^3/uL (140-400); RED CELL DISTRIBUTION WIDTH 16.1 % (11.5-14.5); WHITE BLOOD COUNT 19.6 x10^3/uL (4.0-11.0)
[2019-11-07] MEDS: MORPHINE SULFATE 4 MG/ML VIAL. IV PRN (05:18)
[2019-11-07] MEDS: METOPROLOL TARTRATE 5 MG/5 ML VIAL. IVP SCH (05:21)
[2019-11-07 05:23] LABS: CALCIUM 8.6 mg/dL (8.5-10.1); CREATININE 1.3 mg/dL (0.6-1.0); GFR 39.4; POTASSIUM 3.6 mmol/L (3.5-5.1)
[2019-11-07 05:51] LABS: % BANDS 4 % (0-9); % LYMPHS 7 % (24-48); % MONOS 10 % (0-10); % SEGS 79 % (35-66); PLT ESTIMATE ADEQUATE (ADEQUATE)
[2019-11-07] MEDS: CARVEDILOL 3.125 MG TABLET. PO SCH (08:00)
[2019-11-07] MEDS: FUROSEMIDE 40 MG TABLET. PO SCH (08:35)
[2019-11-07] MEDS: SERTRALINE 50 MG TABLET. PO SCH (08:35)
[2019-11-07] MEDS: CETIRIZINE HCL 10 MG TABLET. PO SCH (08:35)
[2019-11-07] MEDS: LOSARTAN POTASSIUM 50 MG TABLET. NG SCH (08:35)
[2019-11-07] MEDS: levETIRAcetam 500 MG in IV DEXTROSE 5% 100ML 100 ML IV SCH (08:38)
[2019-11-07] MEDS: FAMOTIDINE 20 MG/2 ML VIAL IVP SCH (08:39)
[2019-11-07] MEDS: CYANOCOBALAMIN (VITAMIN B-12) 1,000 MCG/ML VIAL IM SCH (08:39)
--- NOTE | 2019-11-07 10:09 | PDOC ---
Subjective: Subjective: Denies pain. Objective: Objective: No GI concerns per nurse. Vital Signs: Vital Signs Date Time Temp Pulse Resp B/P (MAP) Pulse Ox O2 Delivery O2 Flow Rate FiO2 11/07/19 06:32 98.3 83 20 142/76 (98) 97 Venturi Mask 15.0 98.3 Labs: Laboratory Tests Test 11/07/19 04:20 White Blood Count 19.6 x10^3/uL Red Blood Count 2.60 x10^6/uL Hemoglobin 7.9 g/dL Hematocrit 23.6 % Mean Corpuscular Volume 91 fL Mean Corpuscular Hemoglobin 30 pg Mean Corpuscular Hemoglobin Concent 34 g/dL Red Cell Distribution Width 16.1 % Platelet Count 361 x10^3/uL Neutrophils (%) (Auto) 79 % Lymphocytes (%) (Auto) 8 % Monocytes (%) (Auto) 13 % Eosinophils (%) (Auto) 0 % Basophils (%) (Auto) 0 % Neutrophils # (Auto) 15.6 x10^3/uL Lymphocytes # (Auto) 1.5 x10^3/uL Monocytes # (Auto) 2.5 x10^3/uL Eosinophils # (Auto) 0.0 x10^3/uL Basophils # (Auto) 0.0 x10^3/uL Segmented Neutrophils % 79 % Band Neutrophils % 4 % Lymphocytes % 7 % Monocytes % 10 % Platelet Estimate Adequate Sodium Level 143 mmol/L Potassium Level 3.6 mmol/L Chloride Level 104 mmol/L Carbon Dioxide Level 29 mmol/L Anion Gap 10 Blood Urea Nitrogen 25 mg/dL Creatinine 1.3 mg/dL Estimated GFR (Cockcroft-Gault) 39.4 Glucose Level 142 mg/dL Calcium Level 8.6 mg/dL Imaging: Brain MRI 11/05 Impression: 1. Signal abnormality within the posterior parietal and occipital subcortical white matter, may represent posterior reversible encephalopathy syndrome. Recommend follow-up. Echocardiogram 11/05 <Conclusion> The left ventricular systolic function is severely impaired. The Ejection Fraction is 25%. Transmitral Doppler flow pattern is Grade II-pseudonormal filling dynamics. Mild to moderate mitral regurgitation. Moderate to severe tricuspid regurgitation with an estimated PAP of 83 mmHg. There is severe pulmonary hypertension. There is no evidence of significant pericardial effusion. 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 Okay for PO per GI once cleared by MAINTENANCE JOURNEYMAN. Monitor rectal tube - check stool studies if indicated. Justicifation of Admission Dx: Justifications for Admission: Justification of Admission Dx: Yes Respiratory Failure: Mechanical Ventilation Altered Mental Status: Altered Mental Status MARKOS PATINO Nov 07, 2019 10:09
--- NOTE | 2019-11-07 10:13 | PDOC ---
PROGRESS NOTES Subjective Subjective no problems ,moved out of icu Objective Objective Vital Signs Date Time Temp Pulse Resp B/P (MAP) Pulse Ox O2 Delivery O2 Flow Rate FiO2 11/07/19 06:32 98.3 83 20 142/76 (98) 97 Venturi Mask 15.0 98.3 Intake and Output 11/07/19 07:00 Intake Total 0 ml Output Total 3525 ml Balance -3525 ml Intake Oral 0 ml Output Urine Total 2925 ml Stool Total 600 ml Physical Exam Abdomen: Soft Heart: Regular rate Extremities: No clubbing General: Alert, Other (Intubated and sedated) HEENT: Atraumatic Lungs: Normal air movement, Other (Decreased air entry bases) Neck: Supple Psych/Mental Status: Mood NL Skin: No breakdown Assessment Assessment ASSESSMENT: 1. Acute respiratory failure secondary to aspiration pneumonia, for which, intubated and mechanically ventilated. 2. Accelerated hypertension, improved with Cardene drip. She is now on losartan. Her Coreg was on hold given her bradycardia. 3. New onset of tonic-clonic seizures for which she is on Keppra 500 mg IV twice a day. No further episodes of seizures reported. 4. Profound hypokalemia, resolved. Her potassium is 3.6. 5. Troponin was mildly elevated, felt to be secondary to demand ischemia. 6. Acute on chronic systolic function, for which she is on diuretics. PLAN:moved out of icu speech to see cardiology consult Pt extubated doing well, on ventimask EEGdone iv antibiotics cxr sukhdev lung infiltrates. wbc 14,other labs ok spoke with staff transfered out of icu. . Meanwhile, continue with IV antibiotic in the form of vancomycin and Zosyn. Continue with Keppra for seizure disorder. Continue with DVT prophylaxis, GI prophylaxis. Comment Review of Relevant I have reviewed the following items regina (where applicable) has been applied. Labs Laboratory Tests Test 11/07/19 04:20 White Blood Count 19.6 x10^3/uL (4.0-11.0) Red Blood Count 2.60 x10^6/uL (3.50-5.40) Hemoglobin 7.9 g/dL (12.0-15.5) Hematocrit 23.6 % (36.0-47.0) Mean Corpuscular Volume 91 fL (79-100) Mean Corpuscular Hemoglobin 30 pg (25-35) Mean Corpuscular Hemoglobin Concent 34 g/dL (31-37) Red Cell Distribution Width 16.1 % (11.5-14.5) Platelet Count 361 x10^3/uL (140-400) Neutrophils (%) (Auto) 79 % (31-73) Lymphocytes (%) (Auto) 8 % (24-48) Monocytes (%) (Auto) 13 % (0-9) Eosinophils (%) (Auto) 0 % (0-3) Basophils (%) (Auto) 0 % (0-3) Neutrophils # (Auto) 15.6 x10^3/uL (1.8-7.7) Lymphocytes # (Auto) 1.5 x10^3/uL (1.0-4.8) Monocytes # (Auto) 2.5 x10^3/uL (0.0-1.1) Eosinophils # (Auto) 0.0 x10^3/uL (0.0-0.7) Basophils # (Auto) 0.0 x10^3/uL (0.0-0.2) Segmented Neutrophils % 79 % (35-66) Band Neutrophils % 4 % (0-9) Lymphocytes % 7 % (24-48) Monocytes % 10 % (0-10) Platelet Estimate Adequate (ADEQUATE) Sodium Level 143 mmol/L (136-145) Potassium Level 3.6 mmol/L (3.5-5.1) Chloride Level 104 mmol/L (98-107) Carbon Dioxide Level 29 mmol/L (21-32) Anion Gap 10 (6-14) Blood Urea Nitrogen 25 mg/dL (7-20) Creatinine 1.3 mg/dL (0.6-1.0) Estimated GFR (Cockcroft-Gault) 39.4 Glucose Level 142 mg/dL (70-99) Calcium Level 8.6 mg/dL (8.5-10.1) Medications Current Medications Clopidogrel Bisulfate (Plavix) 75 mg DAILY PO ; Start 11/07/19 at 11:00 Cyanocobalamin (Vitamin B-12) 1,000 mcg DAILY IM Last administered on 11/07/19at 08:39; Start 11/06/19 at 14:30 Furosemide (Lasix) 40 mg 1X ONCE IVP Last administered on 11/06/19at 17:35; Start 11/06/19 at 17:30; Stop 6/24/20 at 17:31; Status DC Metoprolol Tartrate (Lopressor Vial) 5 mg Q6HRS IVP Last administered on 11/07/19at 05:21; Start 11/06/19 at 12:00 Vitals/I & O Vital Sign - Last 24 Hours 11/06/19 11/06/19 11/06/19 11/06/19 11:00 12:13 15:30 17:25 Temp 97.9 97.9 Pulse 91 88 97 108 Resp B/P (MAP) 150/72 (98) 150/72 152/61 (91) 152/61 (91) Pulse Ox 94 88 90 O2 Delivery Nasal Cannula Nasal Cannula Venturi Mask O2 Flow Rate 2.0 3.0 11/06/19 11/06/19 11/06/19 11/06/19 18:26 18:27 19:26 19:40 Temp 98.0 98.0 Pulse 109 109 90 Resp B/P (MAP) 178/78 178/78 (111) 177/129 (145) Pulse Ox 50 96 96 O2 Delivery Venturi Mask Venturi Mask Venturi Mask O2 Flow Rate 15.0 15.0 15.0 11/06/19 11/06/19 11/06/19 11/06/19 19:52 20:11 22:44 22:50 Temp 98.3 98.3 Pulse 94 Resp B/P (MAP) 158/85 (109) Pulse Ox 96 92 92 O2 Delivery Venturi Mask Venturi Mask Venturi Mask Venturi Mask O2 Flow Rate 15.0 15.0 15.0 15.0 11/06/19 11/06/19 11/07/19 11/07/19 23:08 23:20 02:39 05:18 Temp 98.0 98.0 Pulse 94 85 Resp B/P (MAP) 158/85 136/63 (87) Pulse Ox 92 95 95 O2 Delivery Venturi Mask Venturi Mask Venturi Mask O2 Flow Rate 15.0 15.0 15.0 11/07/19 11/07/19 11/07/19 05:21 05:48 06:32 Temp 98.3 98.3 Pulse 98 83 Resp 20 B/P (MAP) 140/64 142/76 (98) Pulse Ox 95 97 O2 Delivery Venturi Mask Venturi Mask O2 Flow Rate 15.0 15.0 Intake and Output 11/06/19 11/06/19 11/07/19 15:00 23:00 07:00 Intake Total 0 ml 0 ml Output Total 1200 ml 1325 ml 1000 ml Balance -1200 ml -1325 ml -1000 ml Justicifation of Admission Dx: Justifications for Admission: Justification of Admission Dx: Yes Respiratory Failure: Mechanical Ventilation Altered Mental Status: Altered Mental Status Nutrition Consultation Dietary Evaluation: Recommendations by RD: Dietary education by RD Comments: Pt is tolerating TF, rec continue at this time Expected Outcomes/Goals: to meet >75% est nutr needs via nutrition support Malnutrition Findings: Body Fat Depletion (Non Severe: Mild Depletion Weight Status: Underweight RAYRAY MA MD Nov 07, 2019 10:13
--- NOTE | 2019-11-07 10:47 | PDOC ---
PULMONARY PROGRESS NOTES Subjective Extubated 11/04 Patient not more short of air Patient normally wears oxygen at home Vitals Vital Signs Date Time Temp Pulse Resp B/P (MAP) Pulse Ox O2 Delivery O2 Flow Rate FiO2 11/07/19 06:32 98.3 83 20 142/76 (98) 97 Venturi Mask 15.0 98.3 ROS: No Chest Pain, No Abdominal Pain General: Alert Lungs: Clear Cardiovascular: S1 Abdomen: Soft Neuro Exam: Alert Extremities: No Edema Skin: Warm Labs Laboratory Tests Test 11/05/19 22:58 11/06/19 04:35 11/07/19 04:20 Potassium Level 3.4 mmol/L (3.5-5.1) 4.0 mmol/L (3.5-5.1) 3.6 mmol/L (3.5-5.1) Magnesium Level 1.9 mg/dL (1.8-2.4) 2.6 mg/dL (1.8-2.4) White Blood Count 15.6 x10^3/uL (4.0-11.0) 19.6 x10^3/uL (4.0-11.0) Red Blood Count 2.59 x10^6/uL (3.50-5.40) 2.60 x10^6/uL (3.50-5.40) Hemoglobin 7.8 g/dL (12.0-15.5) 7.9 g/dL (12.0-15.5) Hematocrit 23.4 % (36.0-47.0) 23.6 % (36.0-47.0) Mean Corpuscular Volume 90 fL (79-100) 91 fL (79-100) Mean Corpuscular Hemoglobin 30 pg (25-35) 30 pg (25-35) Mean Corpuscular Hemoglobin Concent 33 g/dL (31-37) 34 g/dL (31-37) Red Cell Distribution Width 16.5 % (11.5-14.5) 16.1 % (11.5-14.5) Platelet Count 304 x10^3/uL (140-400) 361 x10^3/uL (140-400) Sodium Level 140 mmol/L (136-145) 143 mmol/L (136-145) Chloride Level 101 mmol/L (98-107) 104 mmol/L (98-107) Carbon Dioxide Level 28 mmol/L (21-32) 29 mmol/L (21-32) Anion Gap 11 (6-14) 10 (6-14) Blood Urea Nitrogen 21 mg/dL (7-20) 25 mg/dL (7-20) Creatinine 1.2 mg/dL (0.6-1.0) 1.3 mg/dL (0.6-1.0) Estimated GFR (Cockcroft-Gault) 43.2 39.4 BUN/Creatinine Ratio 18 (6-20) Glucose Level 152 mg/dL (70-99) 142 mg/dL (70-99) Calcium Level 8.2 mg/dL (8.5-10.1) 8.6 mg/dL (8.5-10.1) Iron Level 43 ug/dL (50-170) Total Iron Binding Capacity 241 ug/dL (250-450) Iron Saturation 18 % (15-34) Total Bilirubin 0.3 mg/dL (0.2-1.0) Aspartate Amino Transf (AST/SGOT) 26 U/L (15-37) Alanine Aminotransferase (ALT/SGPT) 15 U/L (14-59) Alkaline Phosphatase 50 U/L (46-116) Total Protein 5.4 g/dL (6.4-8.2) Albumin 2.3 g/dL (3.4-5.0) Albumin/Globulin Ratio 0.7 (1.0-1.7) Vitamin B12 Level 224 pg/mL (247-911) Vancomycin Level Trough 17.3 mcg/mL (10.0-20.0) Vancomycin Last Dose Date 11/05/19 Vancomycin Last Dose Time 1100 Neutrophils (%) (Auto) 79 % (31-73) Lymphocytes (%) (Auto) 8 % (24-48) Monocytes (%) (Auto) 13 % (0-9) Eosinophils (%) (Auto) 0 % (0-3) Basophils (%) (Auto) 0 % (0-3) Neutrophils # (Auto) 15.6 x10^3/uL (1.8-7.7) Lymphocytes # (Auto) 1.5 x10^3/uL (1.0-4.8) Monocytes # (Auto) 2.5 x10^3/uL (0.0-1.1) Eosinophils # (Auto) 0.0 x10^3/uL (0.0-0.7) Basophils # (Auto) 0.0 x10^3/uL (0.0-0.2) Segmented Neutrophils % 79 % (35-66) Band Neutrophils % 4 % (0-9) Lymphocytes % 7 % (24-48) Monocytes % 10 % (0-10) Platelet Estimate Adequate (ADEQUATE) Laboratory Tests Test 11/07/19 04:20 White Blood Count 19.6 x10^3/uL (4.0-11.0) Red Blood Count 2.60 x10^6/uL (3.50-5.40) Hemoglobin 7.9 g/dL (12.0-15.5) Hematocrit 23.6 % (36.0-47.0) Mean Corpuscular Volume 91 fL (79-100) Mean Corpuscular Hemoglobin 30 pg (25-35) Mean Corpuscular Hemoglobin Concent 34 g/dL (31-37) Red Cell Distribution Width 16.1 % (11.5-14.5) Platelet Count 361 x10^3/uL (140-400) Neutrophils (%) (Auto) 79 % (31-73) Lymphocytes (%) (Auto) 8 % (24-48) Monocytes (%) (Auto) 13 % (0-9) Eosinophils (%) (Auto) 0 % (0-3) Basophils (%) (Auto) 0 % (0-3) Neutrophils # (Auto) 15.6 x10^3/uL (1.8-7.7) Lymphocytes # (Auto) 1.5 x10^3/uL (1.0-4.8) Monocytes # (Auto) 2.5 x10^3/uL (0.0-1.1) Eosinophils # (Auto) 0.0 x10^3/uL (0.0-0.7) Basophils # (Auto) 0.0 x10^3/uL (0.0-0.2) Segmented Neutrophils % 79 % (35-66) Band Neutrophils % 4 % (0-9) Lymphocytes % 7 % (24-48) Monocytes % 10 % (0-10) Platelet Estimate Adequate (ADEQUATE) Sodium Level 143 mmol/L (136-145) Potassium Level 3.6 mmol/L (3.5-5.1) Chloride Level 104 mmol/L (98-107) Carbon Dioxide Level 29 mmol/L (21-32) Anion Gap 10 (6-14) Blood Urea Nitrogen 25 mg/dL (7-20) Creatinine 1.3 mg/dL (0.6-1.0) Estimated GFR (Cockcroft-Gault) 39.4 Glucose Level 142 mg/dL (70-99) Calcium Level 8.6 mg/dL (8.5-10.1) Medications Active Scripts Medications Dose Route/Sig Max Daily Dose Days Date Category Dose Instructions Kristie (Sitagliptin Phosphate) 100 Mg Tablet 1 Tab PO DAILY 11/02/19 Reported Pantoprazole Sodium (Pantoprazole Sodium) 40 Mg Tablet.dr 20 Mg PO DAILYAC 11/02/19 Reported Glimepiride 1 Mg Tablet 1 Tab PO DAILY 11/02/19 Reported Hydrocodone-Apap 5-325 (Hydrocodone Bit/Acetaminophen) 1 Tab Tablet 1 Tab PO PRN Q6HRS PRN 11/02/19 Reported Lisinopril 10 Mg Tablet 1 Tab PO DAILY 11/02/19 Reported Acetaminophen 500 Mg Tablet 1 Tab PO BID 11/30/18 Reported Trazodone Hcl 50 Mg Tablet 0.5 Tab PO QHS 11/30/18 Reported Omeprazole 20 Mg Capsule. 1 Cap PO DAILY 11/30/18 Reported Novolog (Insulin Aspart) 100 Unit/1 Ml Cartridge 100 Unit SQ QIDACHS 11/30/18 Reported Naproxen 500 Mg Tablet 1 Tab PO PRN Q8HRS PRN 11/30/18 Reported Lidocaine PATCH (Lidocaine) 1 Each Adh..patch 1 Each TP DAILY 11/30/18 Reported REMOVE AFTER 12 HOURS Latanoprost 2.5 Ml Drops 1 Drop EACHEYE QHS 11/30/18 Reported Duoneb 0.5-3(2.5) Mg/3 Ml (Albuterol/Ipratropium) 3 Ml Ampul.neb 3 Ml NEB PRN Q4HRS PRN 11/30/18 Reported Imodium A-D (Loperamide HCl) 2 Mg Capsule 2 Mg PO PRN PRN 11/30/18 Reported Flonase Allergy Relief (Fluticasone Propionate) 9.9 Ml Tilly.susp 1 Sprays NS PRN Q12HRS PRN 11/30/18 Reported Coreg (Carvedilol) 3.125 Mg Tablet 3.125 Mg PO BIDWMEALS 11/30/18 Reported Chloraseptic (Phenol) 20 Ml Tilly 1 Tilly MM PRN Q6HRS PRN 11/30/18 Reported Calcium Citrate 250 Mg Tablet 500 Mg PO DAILY 11/30/18 Reported Tylenol (Acetaminophen) 325 Mg Tablet 2 Tab PO PRN Q6HRS PRN 11/30/18 Reported Atorvastatin Calcium 10 Mg Tablet 1 Tab PO QHS 11/30/18 Reported Proair Respiclick (Albuterol Sulfate) 90 Mcg Aer.pow.ba 1 Puff IH PRN Q6HRS PRN 01/18/17 Reported Alendronate Sodium 70 Mg Tablet 1 Tab PO WEEKLY 01/18/17 Reported Citalopram Hbr (Citalopram Hydrobromide) 10 Mg Tablet 1.5 Tab PO DAILY 01/18/17 Reported Cetirizine Hcl 10 Mg Tablet 1 Tab PO DAILY 01/18/17 Reported Guaifenesin 600 Mg Tablet.er 600 Mg PO PRN Q8HRS PRN 01/18/17 Reported Clopidogrel (Clopidogrel Bisulfate) 75 Mg Tablet 1 Tab PO DAILY 01/18/17 Reported Novolog Flexpen (Insulin Aspart) 100 Unit/1 Ml Insuln.pen 0-3 Unit SQ QIDACHS 10/25/19 Reported PATIENT SLIDING SCALE. 70-249= 0 UNITS. 250-400= 3UNITS. BEFORE MEALS AND AT BEDTIME GIVE 3 UNITS IF BLOOD SUGAR 250 OR ABOVE. Diclofenac Sodium 100 Gm Gel..gram. 1 Carlos TP DAILY 10/25/19 Reported D3-50 (Cholecalciferol (Vitamin D3)) 50,000 Unit Capsule 50,000 Unit PO DAILY 10/25/19 Reported Trazodone Hcl 50 Mg Tablet 0.5 Tab PO QHS 10/25/19 Reported Reglan (Metoclopramide Hcl) 5 Mg Tablet 5 Mg PO DAILY 10/25/19 Reported Protonix (Pantoprazole Sodium) 20 Mg Tablet.dr 1 Tab PO DAILY 10/25/19 Reported [place] 5-325 Tablet (Hydrocodone Bit/Acetaminophen) 1 Each Tablet 1 Tab PO Q4HRS 10/25/19 Reported Naproxen 500 Mg Tablet 1 Tab PO Q8HRS 10/25/19 Reported Lisinopril 2.5 Mg Tablet 1 Tab PO DAILY 10/25/19 Reported Lidocaine PATCH (Lidocaine) 1 Each Adh..patch 1 Each TP DAILY 10/25/19 Reported REMOVE AFTER 12 HOURS Lasix (Furosemide) 20 Mg Tablet 1 Tab PO DAILY 30 10/25/19 Reported Duoneb 0.5-3(2.5) Mg/3 Ml (Albuterol/Ipratropium) 3 Ml Ampul.neb 3 Ml NEB QID 10/25/19 Reported Imodium A-D (Loperamide HCl) 2 Mg Capsule 2 Mg PO DAILY 10/25/19 Reported Guaifenesin 400 Mg Tablet 400 Mg PO Q8HRS 10/25/19 Reported Coreg (Carvedilol) 3.125 Mg Tablet 3.125 Mg PO BID 10/25/19 Reported Clopidogrel (Clopidogrel Bisulfate) 75 Mg Tablet 75 Mg PO DAILY 10/25/19 Reported Citalopram Hbr (Citalopram Hydrobromide) 10 Mg Tablet 10 Mg PO DAILY 10/25/19 Reported Atorvastatin Calcium 10 Mg Tablet 10 Mg PO DAILY 10/25/19 Reported Proair Hfa Inhaler (Albuterol Sulfate) 8.5 Gm Hfa.aer.ad 1 Puff INH PRN Q6HRS 10/25/19 Reported Acetaminophen 500 Mg Tablet 1 Tab PO PRN Q6HRS 10/25/19 Reported Glimepiride 1 Mg Tablet 1 Mg PO DAILY 07/05/14 Reported Simvastatin 40 Mg Tablet 40 Mg PO HS 07/05/14 Reported Omeprazole 20 Mg Capsule.dr 20 Mg PO DAILY 07/05/14 Reported Januvia (Sitagliptin Phosphate) 100 Mg Tablet 100 Mg PO DAILY 07/05/14 Reported Comments Chest x-ray 624 improved Impression . IMPRESSION: 1. Acute respiratory failure, multifactorial in etiology. Extubated 11/04 /developed flash pulmonary edema post extubation from hypertensive urgency Rx with lasix/ bipap, MUCH IMPROVED 2. New-onset seizure. 3. Acute diastolic congestive heart failure, rule out myocardial infarction, less likely pneumonia. 4. Abnormal chest x-ray. 5. Electrolyte abnormality. 6. Hypertensive urgency. 7. Diabetes mellitus. 8. COVID-19 Neg 9. Dysphagia Plan . Continue oxygen per nasal cannula Off of BiPAP Dysphasia evaluation Spoke with speech therapist CRYS BARAHONA MD Nov 07, 2019 10:47
--- NOTE | 2019-11-07 12:01 | PDOC ---
CARDIO Progress Notes Date and Time Date of Service 11/07/2019 Time of Evaluation 1130 Subjective Subjective: No Chest Pain, No shortness of breath, No Palpitations Vitals Vitals Vital Signs Date Time Temp Pulse Resp B/P (MAP) Pulse Ox O2 Delivery O2 Flow Rate FiO2 11/07/19 10:59 98.3 99 20 146/71 (96) 93 Venturi Mask 15.0 98.3 Weight Weight [ ] Input and Output Intake and Output Intake and Output 11/07/19 07:00 Intake Total 0 ml Output Total 3525 ml Balance -3525 ml Intake Oral 0 ml Output Urine Total 2925 ml Stool Total 600 ml Laboratory Labs Laboratory Tests Test 11/07/19 04:20 White Blood Count 19.6 x10^3/uL (4.0-11.0) Red Blood Count 2.60 x10^6/uL (3.50-5.40) Hemoglobin 7.9 g/dL (12.0-15.5) Hematocrit 23.6 % (36.0-47.0) Mean Corpuscular Volume 91 fL (79-100) Mean Corpuscular Hemoglobin 30 pg (25-35) Mean Corpuscular Hemoglobin Concent 34 g/dL (31-37) Red Cell Distribution Width 16.1 % (11.5-14.5) Platelet Count 361 x10^3/uL (140-400) Neutrophils (%) (Auto) 79 % (31-73) Lymphocytes (%) (Auto) 8 % (24-48) Monocytes (%) (Auto) 13 % (0-9) Eosinophils (%) (Auto) 0 % (0-3) Basophils (%) (Auto) 0 % (0-3) Neutrophils # (Auto) 15.6 x10^3/uL (1.8-7.7) Lymphocytes # (Auto) 1.5 x10^3/uL (1.0-4.8) Monocytes # (Auto) 2.5 x10^3/uL (0.0-1.1) Eosinophils # (Auto) 0.0 x10^3/uL (0.0-0.7) Basophils # (Auto) 0.0 x10^3/uL (0.0-0.2) Segmented Neutrophils % 79 % (35-66) Band Neutrophils % 4 % (0-9) Lymphocytes % 7 % (24-48) Monocytes % 10 % (0-10) Platelet Estimate Adequate (ADEQUATE) Sodium Level 143 mmol/L (136-145) Potassium Level 3.6 mmol/L (3.5-5.1) Chloride Level 104 mmol/L (98-107) Carbon Dioxide Level 29 mmol/L (21-32) Anion Gap 10 (6-14) Blood Urea Nitrogen 25 mg/dL (7-20) Creatinine 1.3 mg/dL (0.6-1.0) Estimated GFR (Cockcroft-Gault) 39.4 Glucose Level 142 mg/dL (70-99) Calcium Level 8.6 mg/dL (8.5-10.1) Physical Exam HEENT: Neck Supple W Full Motion Chest: Symmetric LUNGS: Other (corase throughout) Heart: RRR (SR), murmurs (4/6 systolic murmur to LLS border) Abdomen: Soft N/T Extremities: No Edema, No Calf Tenderness Neurology: alert, follow commands, confused Assessment Assessment 1. Accelerated hypertension: controlled 2. New onset seizure disorder with encephalopathy: on keppra per neurology. pt remains pleasantly confused 3. Acute respiratory failure, multifactorial: s/p intubation, treat per pulmonary team. COVID test negative 4. Acute on chronic diastolic/systolic heart failure: appears better 5. Mild troponin elevation: multifactorial 6. Paroxysmal Torsades: none further after BB initiation 7. Asymptomatic SB: lowest 50s. none further, no pauses 8. Normocytic anemia: 7.9 with no overt bleed 9. Protein malnutrition 10. Hx of LE PAD: hence on plavix with past stenting in 2017 11. Cardiomyopathy: EF at 25% New 12. Moderate to severe TR 13. Severe Pulmonary HTN: PAP 83 mmhg New Recommendations 1. Able to take PO. Change to toprol XL. Continue lasix therapy. Continue plavix. 2. Continue plavix, allergy to ASA 3. Discussed with RN, will obtain consent with family. LHC/RHC planned for tomorrow. No prior ischemic workup per chart review 4. BMP in AM. ACEI or ARB prior to DC pending renal function Justicifation of Admission Dx: Justifications for Admission: Justification of Admission Dx: Yes Respiratory Failure: Mechanical Ventilation Altered Mental Status: Altered Mental Status [facility] Nov 07, 2019 12:01
[2019-11-07] MEDS: VANCOMYCIN PER PHARMACY MC PRN (12:30)
--- NOTE | 2019-11-07 13:16 | PDOC ---
PROGRESS NOTES Assessment Respiratory failure Seizure, no evidence of recurrence Aspiration pneumonia, severe hypertension, hypokalemia (resolved), elevated troponin, elevated BNP Possible posterior reversible encephalopathy syndrome, no evidence of this clinically now Plan Levetiracetam, switch to oral Treatment of medical problems. Subjective No complaints Objective Vital Signs Date Time Temp Pulse Resp B/P (MAP) Pulse Ox O2 Delivery O2 Flow Rate FiO2 11/07/19 10:59 98.3 99 20 146/71 (96) 93 Venturi Mask 15.0 98.3 Intake and Output 11/07/19 07:00 Intake Total 0 ml Output Total 3525 ml Balance -3525 ml Intake Oral 0 ml Output Urine Total 2925 ml Stool Total 600 ml PHYSICAL EXAM Alert. Oriented to place and person, off on date. PERRL. EOMI. CN: no focal findings. Muscle tone: normal. Muscle strength: 5/5 DTR: 2+ Plantar reflex: flexor Gait: not examined in bed. Sensory exam: no abnormal findings. No cerebellar signs elicited. Review of Relevant I have reviewed the following items regina (where applicable) has been applied. Labs Laboratory Tests Test 11/05/19 22:58 11/06/19 04:35 11/07/19 04:20 Potassium Level 3.4 mmol/L (3.5-5.1) 4.0 mmol/L (3.5-5.1) 3.6 mmol/L (3.5-5.1) Magnesium Level 1.9 mg/dL (1.8-2.4) 2.6 mg/dL (1.8-2.4) White Blood Count 15.6 x10^3/uL (4.0-11.0) 19.6 x10^3/uL (4.0-11.0) Red Blood Count 2.59 x10^6/uL (3.50-5.40) 2.60 x10^6/uL (3.50-5.40) Hemoglobin 7.8 g/dL (12.0-15.5) 7.9 g/dL (12.0-15.5) Hematocrit 23.4 % (36.0-47.0) 23.6 % (36.0-47.0) Mean Corpuscular Volume 90 fL (79-100) 91 fL (79-100) Mean Corpuscular Hemoglobin 30 pg (25-35) 30 pg (25-35) Mean Corpuscular Hemoglobin Concent 33 g/dL (31-37) 34 g/dL (31-37) Red Cell Distribution Width 16.5 % (11.5-14.5) 16.1 % (11.5-14.5) Platelet Count 304 x10^3/uL (140-400) 361 x10^3/uL (140-400) Sodium Level 140 mmol/L (136-145) 143 mmol/L (136-145) Chloride Level 101 mmol/L (98-107) 104 mmol/L (98-107) Carbon Dioxide Level 28 mmol/L (21-32) 29 mmol/L (21-32) Anion Gap 11 (6-14) 10 (6-14) Blood Urea Nitrogen 21 mg/dL (7-20) 25 mg/dL (7-20) Creatinine 1.2 mg/dL (0.6-1.0) 1.3 mg/dL (0.6-1.0) Estimated GFR (Cockcroft-Gault) 43.2 39.4 BUN/Creatinine Ratio 18 (6-20) Glucose Level 152 mg/dL (70-99) 142 mg/dL (70-99) Calcium Level 8.2 mg/dL (8.5-10.1) 8.6 mg/dL (8.5-10.1) Iron Level 43 ug/dL (50-170) Total Iron Binding Capacity 241 ug/dL (250-450) Iron Saturation 18 % (15-34) Total Bilirubin 0.3 mg/dL (0.2-1.0) Aspartate Amino Transf (AST/SGOT) 26 U/L (15-37) Alanine Aminotransferase (ALT/SGPT) 15 U/L (14-59) Alkaline Phosphatase 50 U/L (46-116) Total Protein 5.4 g/dL (6.4-8.2) Albumin 2.3 g/dL (3.4-5.0) Albumin/Globulin Ratio 0.7 (1.0-1.7) Vitamin B12 Level 224 pg/mL (247-911) Vancomycin Level Trough 17.3 mcg/mL (10.0-20.0) Vancomycin Last Dose Date 11/05/19 Vancomycin Last Dose Time 1100 Neutrophils (%) (Auto) 79 % (31-73) Lymphocytes (%) (Auto) 8 % (24-48) Monocytes (%) (Auto) 13 % (0-9) Eosinophils (%) (Auto) 0 % (0-3) Basophils (%) (Auto) 0 % (0-3) Neutrophils # (Auto) 15.6 x10^3/uL (1.8-7.7) Lymphocytes # (Auto) 1.5 x10^3/uL (1.0-4.8) Monocytes # (Auto) 2.5 x10^3/uL (0.0-1.1) Eosinophils # (Auto) 0.0 x10^3/uL (0.0-0.7) Basophils # (Auto) 0.0 x10^3/uL (0.0-0.2) Segmented Neutrophils % 79 % (35-66) Band Neutrophils % 4 % (0-9) Lymphocytes % 7 % (24-48) Monocytes % 10 % (0-10) Platelet Estimate Adequate (ADEQUATE) Laboratory Tests Test 11/07/19 04:20 White Blood Count 19.6 x10^3/uL (4.0-11.0) Red Blood Count 2.60 x10^6/uL (3.50-5.40) Hemoglobin 7.9 g/dL (12.0-15.5) Hematocrit 23.6 % (36.0-47.0) Mean Corpuscular Volume 91 fL (79-100) Mean Corpuscular Hemoglobin 30 pg (25-35) Mean Corpuscular Hemoglobin Concent 34 g/dL (31-37) Red Cell Distribution Width 16.1 % (11.5-14.5) Platelet Count 361 x10^3/uL (140-400) Neutrophils (%) (Auto) 79 % (31-73) Lymphocytes (%) (Auto) 8 % (24-48) Monocytes (%) (Auto) 13 % (0-9) Eosinophils (%) (Auto) 0 % (0-3) Basophils (%) (Auto) 0 % (0-3) Neutrophils # (Auto) 15.6 x10^3/uL (1.8-7.7) Lymphocytes # (Auto) 1.5 x10^3/uL (1.0-4.8) Monocytes # (Auto) 2.5 x10^3/uL (0.0-1.1) Eosinophils # (Auto) 0.0 x10^3/uL (0.0-0.7) Basophils # (Auto) 0.0 x10^3/uL (0.0-0.2) Segmented Neutrophils % 79 % (35-66) Band Neutrophils % 4 % (0-9) Lymphocytes % 7 % (24-48) Monocytes % 10 % (0-10) Platelet Estimate Adequate (ADEQUATE) Sodium Level 143 mmol/L (136-145) Potassium Level 3.6 mmol/L (3.5-5.1) Chloride Level 104 mmol/L (98-107) Carbon Dioxide Level 29 mmol/L (21-32) Anion Gap 10 (6-14) Blood Urea Nitrogen 25 mg/dL (7-20) Creatinine 1.3 mg/dL (0.6-1.0) Estimated GFR (Cockcroft-Gault) 39.4 Glucose Level 142 mg/dL (70-99) Calcium Level 8.6 mg/dL (8.5-10.1) Medications Current Medications Fentanyl Citrate 30 ml @ 0 mls/hr CONT PRN IV SEE PROTOCOL; Start 11/02/19 at 02:45; Status Cancel Propofol 100 ml @ 0 mls/hr CONT PRN IV SEE PROTOCOL; Start 11/02/19 at 02:45; Status Cancel Fentanyl Citrate (Fentanyl 2ml Vial) 25 mcg PRN Q1HR PRN IV SEE COMMENTS; Start 11/02/19 at 02:45; Status Cancel Fentanyl Citrate (Fentanyl 2ml Vial) 50 mcg PRN Q1HR PRN IV SEE COMMENTS; Start 11/02/19 at 02:45; Status Cancel Chlorhexidine Gluconate (Peridex) 15 ml BID MM ; Start 11/02/19 at 09:00; Status Cancel Morphine Sulfate (Morphine Sulfate) 2 mg PRN Q1HR PRN IV SEE COMMENTS.; Start 11/02/19 at 02:45; Status Cancel Morphine Sulfate (Morphine Sulfate) 4 mg PRN Q1HR PRN IV SEE COMMENTS.; Start 11/02/19 at 02:45; Status Cancel Midazolam HCl 100 ml @ 0 mls/hr CONT PRN IV SEE PROTOCOL; Start 11/02/19 at 02: 45; Status Cancel Diphenhydramine HCl (Benadryl) 25 mg PRN Q15MIN PRN IVP EPS Symptoms; Start 11/02/19 at 02:45; Status Cancel Nicardipine HCl 50 mg/Sodium Chloride 250 ml @ 25 mls/hr CONT PRN IV SEE I/O RECORD Last administered on 11/02/19at 16:45; Start 11/02/19 at 03:15 Propofol 100 ml @ As Directed STK-MED ONCE IV ; Start 11/02/19 at 02:49; Stop 11/02/19 at 03:22; Status DC Propofol 100 ml @ 0 mls/hr CONT PRN IV SEE PROTOCOL Last administered on 11/03/19at 11:18; Start 11/02/19 at 03:30; Stop 11/03/19 at 13:54; Status DC Fentanyl Citrate (Fentanyl 2ml Vial) 25 mcg PRN Q1HR PRN IV SEE COMMENTS; Start 11/02/19 at 03:30; Stop 11/06/19 at 10:08; Status DC Fentanyl Citrate (Fentanyl 2ml Vial) 50 mcg PRN Q1HR PRN IV SEE COMMENTS; Start 11/02/19 at 03:30; Stop 11/06/19 at 10:08; Status DC Chlorhexidine Gluconate (Peridex) 15 ml BID MM Last administered on 11/05/19at 08:54; Start 11/02/19 at 09:00; Stop 11/06/19 at 10:08; Status DC Famotidine (Pepcid Vial) 20 mg DAILY IVP Last administered on 11/07/19at 08:39; Start 11/02/19 at 09:00 Morphine Sulfate (Morphine Sulfate) 2 mg PRN Q1HR PRN IV SEE COMMENTS. Last administered on 11/04/19at 17:55; Start 11/02/19 at 03:30 Morphine Sulfate (Morphine Sulfate) 4 mg PRN Q1HR PRN IV SEE COMMENTS. Last administered on 11/07/19 05:18; Start 11/02/19 at 03:30 Potassium Bicarbonate (Potassium Effervescent Tablet) 40 meq 1X ONCE PEG Last administered on 11/02/19at 08:38; Start 11/02/19 at 07:30; Stop 11/02/19 at 07:31; Status DC Potassium Bicarbonate (Potassium Effervescent Tablet) 40 meq 1X ONCE PEG Last administered on 11/02/19 10:02; Start 11/02/19 at 08:00; Stop 11/02/19 at 08:01; Status DC Potassium Bicarbonate (Potassium Effervescent Tablet) 40 meq 1X ONCE PEG Last administered on 11/02/19 10:41; Start 11/02/19 at 09:00; Stop 11/02/19 at 09:01; Status DC Magnesium Sulfate 50 ml @ 25 mls/hr 1X ONCE IV Last administered on 11/02/19 08:37; Start 11/02/19 at 07:30; Stop 11/02/19 at 09:29; Status DC Famotidine (Pepcid Vial) 20 mg DAILY IVP ; Start 11/02/19 at 09:00; Status UNV Ceftriaxone Sodium (Rocephin) 1 gm Q24H IVP Last administered on 11/04/19 08:46; Start 11/02/19 at 09:00; Stop 11/04/19 at 15:04; Status DC Levetiracetam 1000 mg/Dextrose 110 ml @ 440 mls/hr Q12HR IV Last administered on 11/03/19 09:13; Start 11/02/19 at 11:00; Stop 11/03/19 at 09:32; Status DC Acetaminophen (Tylenol) 650 mg PRN Q6HRS PRN PO PAIN; Start 11/02/19 at 10:15 Atorvastatin Calcium (Lipitor) 10 mg QHS PO Last administered on 11/04/19 21:20; Start 11/02/19 at 21:00 Carvedilol (Coreg) 3.125 mg BIDWMEALS PO Last administered on 11/03/19 08:02; Start 11/02/19 at 11:00; Stop 11/07/19 at 12:02; Status DC Cetirizine HCl (ZyrTEC) 10 mg DAILY PO Last administered on 11/05/19 08:53; Start 11/02/19 at 11:00 Citalopram Hydrobromide (CeleXA) 15 mg DAILY PO Last administered on 11/03/19 09:14; Start 11/02/19 at 11:00; Stop 11/03/19 at 13:50; Status DC Clopidogrel Bisulfate (Plavix) 75 mg DAILY PO Last administered on 6/23/20at 08:53; Start 11/02/19 at 11:00; Stop 11/05/19 at 15:30; Status DC Diclofenac Sodium (Voltaren) 1 carlos BID PRN TP BREAKTHROUGH PAIN; Start 11/02/19 at 10:15 Furosemide (Lasix) 20 mg QEVNG PO Last administered on 11/04/19at 17:54; Start 11/02/19 at 18:00; Stop 11/07/19 at 11:59; Status DC Furosemide (Lasix) 40 mg QAM PO Last administered on 11/05/19at 08:54; Start 11/02/19 at 11:00; Stop 11/07/19 at 11:59; Status DC Albuterol Sulfate (Ventolin Neb Soln) 2.5 mg PRN Q4HRS PRN NEB SHORTNESS OF BREATH; Start 11/02/19 at 10:30 Latanoprost (Xalatan) 1 drop QHS OU Last administered on 11/06/19at 20:32; Start 11/02/19 at 21:00 Lidocaine (Lidoderm) 1 patch PRN DAILY PRN TP PAIN; Start 11/02/19 at 09:00 Pantoprazole Sodium (Protonix) 20 mg DAILYAC PO ; Start 11/03/19 at 07:30; Status UNV Phenol (Chloraseptic) 1 spray PRN Q6HRS PRN MM SORE THROAT; Start 11/02/19 at 10:15 Piperacillin Sod/ Tazobactam Sod 3.375 gm/Sodium Chloride 50 ml @ 100 mls/hr Q6HRS IV Last administered on 11/07/19at 05:10; Start 11/02/19 at 11:00 Vancomycin HCl (Vanco Per Pharmacy) 1 each PRN DAILY PRN MC SEE COMMENTS Last administered on 11/07/19at 12:30; Start 11/02/19 at 10:30 Vancomycin HCl 1 gm/Sodium Chloride 250 ml @ 250 mls/hr Q24H IV Last administered on 11/03/19at 22:57; Start 11/02/19 at 22:00; Stop 11/04/19 at 07:00; Status DC Vancomycin HCl (Vancomycin Trough Level) 1 each 1X ONCE MC Last administered on 11/03/19at 21:30; Start 11/03/19 at 21:30; Stop 11/03/19 at 21:31; Status DC Levetiracetam 500 mg/Dextrose 105 ml @ 420 mls/hr Q12HR IV Last administered on 11/07/19at 08:38; Start 11/03/19 at 21:00 Magnesium Sulfate 50 ml @ 25 mls/hr 1X ONCE IV Last administered on 11/03/19at 13:33; Start 11/03/19 at 12:00; Stop 11/03/19 at 13:59; Status DC Sertraline HCl (Zoloft) 50 mg DAILY PO Last administered on 11/05/19at 08:53; Start 11/04/19 at 09:00 Losartan Potassium (Cozaar) 25 mg DAILY NG Last administered on 11/05/19at 08:54; Start 11/03/19 at 14:00; Stop 11/05/19 at 09:40; Status DC Dexmedetomidine HCl 400 mcg/ Sodium Chloride 100 ml @ 0 mls/hr CONT PRN IV PER PROTOCOL Last administered on 11/05/19at 02:05; Start 11/03/19 at 14:00; Stop 11/06/19 at 10:08; Status DC Sodium Chloride 500 ml @ 500 mls/hr 1X PRN PRN IV SEE COMMENTS; Start 11/03/19 at 14:00 Atropine Sulfate (ATROPINE 0.5mg SYRINGE) 0.5 mg PRN Q5MIN PRN IV SEE COMMENTS; Start 11/03/19 at 14:00; Stop 11/07/19 at 12:28; Status DC Vancomycin HCl 1 gm/Sodium Chloride 250 ml @ 250 mls/hr Q18H IV Last administered on 11/06/19at 22:03; Start 11/04/19 at 17:00 Vancomycin HCl (Vancomycin Trough Level) 1 each 1X ONCE MC Last administered on 11/06/19at 04:30; Start 11/06/19 at 04:30; Stop 11/06/19 at 04:31; Status DC Losartan Potassium (Cozaar) 50 mg DAILY NG Last administered on 11/05/19at 10:01; Start 11/05/19 at 09:45 Epinephrine (S2 Racepinephrine) 0.5 ml 1X ONCE NEB Last administered on 11/05/19at 12:00; Start 11/05/19 at 12:00; Stop 11/05/19 at 12:01; Status DC Methylprednisolone Sodium Succinate (SOLU-Medrol 125MG VIAL) 100 mg 1X ONCE IV Last administered on 11/05/19at 12:15; Start 11/05/19 at 12:00; Stop 11/05/19 at 12:01; Status DC Furosemide (Lasix) 20 mg 1X STAT IVP Last administered on 11/05/19at 12:14; Start 11/05/19 at 12:08; Stop 11/05/19 at 12:12; Status DC Furosemide (Lasix) 20 mg 1X ONCE IVP Last administered on 11/05/19at 14:26; Start 11/05/19 at 14:15; Stop 11/05/19 at 14:16; Status DC Clopidogrel Bisulfate (Plavix) 75 mg DAILY PO ; Start 11/07/19 at 11:00 Metoprolol Tartrate (Lopressor Vial) 5 mg ONCE ONCE IVP Last administered on 11/05/19at 23:56; Start 11/06/19 at 00:00; Stop 11/06/19 at 00:01; Status DC Potassium Chloride (Klor-Con) 40 meq 1X PRN PRN PO PER PROTOCOL; Start 11/05/19 at 23:45 Potassium Bicarbonate (Potassium Effervescent Tablet) 40 meq 1X PRN PRN PO PER PROTOCOL; Start 11/05/19 at 23:45 Potassium Chloride/Water 100 ml @ 100 mls/hr PRN Q1HR PRN IV PER PROTOCOL Last administered on 11/06/19at 06:03; Start 11/05/19 at 23:45; Stop 11/06/19 at 06:11; Status DC Potassium Chloride/Water 100 ml @ 100 mls/hr PRN Q1HR PRN IV PER PROTOCOL; Start 11/05/19 at 23:45 Potassium Chloride (Klor-Con) 40 meq PRN Q2HRS PRN PO PER PROTOCOL; Start 11/05/19 at 23:45 Potassium Chloride/Water 100 ml @ 100 mls/hr PRN Q1HR PRN IV PER PROTOCOL; Start 11/05/19 at 23:45 Potassium Chloride/Water 100 ml @ 100 mls/hr PRN Q1HR PRN IV PER PROTOCOL; S tart 11/05/19 at 23:45; Stop 11/06/19 at 07:44; Status DC Potassium Chloride (Klor-Con) 40 meq PRN Q2HRS PRN PO PER PROTOCOL; Start 11/05/19 at 23:45 Potassium Chloride/Water 100 ml @ 100 mls/hr PRN Q1HR PRN IV PER PROTOCOL; Start 11/05/19 at 23:45 Potassium Chloride/Water 100 ml @ 100 mls/hr PRN Q1HR PRN IV PER PROTOCOL; Start 11/06/19 at 00:01; Stop 11/06/19 at 07:44; Status DC Magnesium Sulfate 100 ml @ 50 mls/hr PRN DAILY PRN IV PER PROTOCOL; Start 11/06/19 at 00:00 Potassium Phos/ Sodium Phos (Phos-Nak) 1 pkt PRN BID PRN PO PER PROTOCOL; Start 11/06/19 at 09:00 Sodium Phosphate 40 mmol/Sodium Chloride 263.3333 ml @ 62.5 mls/hr 1X PRN PRN IV PER PROTOCOL; Start 11/05/19 at 23:45 Potassium Phosphate 13.6 mmol/Sodium Chloride 254.5333 ml @ 62.5 mls/hr PRN Q4HRS PRN IV PER PROTOCOL; Start 11/05/19 at 23:45 Magnesium Sulfate 50 ml @ 25 mls/hr 1X ONCE IV Last administered on 11/06/19at 00:31; Start 11/06/19 at 01:00; Stop 11/06/19 at 02:59; Status DC Metoprolol Tartrate (Lopressor Vial) 5 mg 1X ONCE IVP Last administered on 11/06/19at 01:52; Start 11/06/19 at 02:00; Stop 11/06/19 at 02:01; Status DC Miscellaneous (Lidoderm Patch Removal) 1 ea PRN QHS PRN MC SEE COMMENTS; Start 11/06/19 at 08:00 Metoprolol Tartrate (Lopressor Vial) 5 mg Q6HRS IVP Last administered on 11/07/19at 05:21; Start 11/06/19 at 12:00; Stop 11/07/19 at 11:59; Status DC Cyanocobalamin (Vitamin B-12) 1,000 mcg DAILY IM Last administered on 11/07/19at 08:39; Start 11/06/19 at 14:30 Furosemide (Lasix) 40 mg 1X ONCE IVP Last administered on 11/06/19at 17:35; Start 6/24/20 at 17:30; Stop 11/06/19 at 17:31; Status DC Amino Acids/ Glycerin/ Electrolytes 1,000 ml @ 80 mls/hr [id number] IV ; Start 11/07/19 at 10:15 Metoprolol Succinate (Toprol Xl) 50 mg DAILY PO ; Start 11/08/19 at 09:00 Furosemide (Lasix) 40 mg DAILY PO ; Start 11/08/19 at 09:00 Lactobacillus Rhamnosus (Culturelle) 1 cap BID PO ; Start 11/07/19 at 21:00 Active Scripts Active Reported Januvia (Sitagliptin Phosphate) 100 Mg Tablet 1 Tab PO DAILY Pantoprazole Sodium (Pantoprazole Sodium) 40 Mg Tablet.dr 20 Mg PO DAILYAC Glimepiride 1 Mg Tablet 1 Tab PO DAILY Hydrocodone-Apap 5-325 (Hydrocodone Bit/Acetaminophen) 1 Tab Tablet 1 Tab PO PRN Q6HRS PRN Lisinopril 10 Mg Tablet 1 Tab PO DAILY Acetaminophen 500 Mg Tablet 1 Tab PO BID Trazodone Hcl 50 Mg Tablet 0.5 Tab PO QHS Omeprazole 20 Mg Capsule. 1 Cap PO DAILY Novolog (Insulin Aspart) 100 Unit/1 Ml Cartridge 100 Unit SQ QIDACHS Naproxen 500 Mg Tablet 1 Tab PO PRN Q8HRS PRN Lidocaine PATCH (Lidocaine) 1 Each Adh..patch 1 Each TP DAILY REMOVE AFTER 12 HOURS Latanoprost 2.5 Ml Drops 1 Drop EACHEYE QHS Duoneb 0.5-3(2.5) Mg/3 Ml (Albuterol/Ipratropium) 3 Ml Ampul.neb 3 Ml NEB PRN Q4HRS PRN Imodium A-D (Loperamide HCl) 2 Mg Capsule 2 Mg PO PRN PRN Flonase Allergy Relief (Fluticasone Propionate) 9.9 Ml Azle.susp 1 Sprays NS PRN Q12HRS PRN Coreg (Carvedilol) 3.125 Mg Tablet 3.125 Mg PO BIDWMEALS Chloraseptic (Phenol) 20 Ml Azle 1 Azle MM PRN Q6HRS PRN Calcium Citrate 250 Mg Tablet 500 Mg PO DAILY Tylenol (Acetaminophen) 325 Mg Tablet 2 Tab PO PRN Q6HRS PRN Atorvastatin Calcium 10 Mg Tablet 1 Tab PO QHS Proair Respiclick (Albuterol Sulfate) 90 Mcg Aer.pow.ba 1 Puff IH PRN Q6HRS PRN Alendronate Sodium 70 Mg Tablet 1 Tab PO WEEKLY Citalopram Hbr (Citalopram Hydrobromide) 10 Mg Tablet 1.5 Tab PO DAILY Cetirizine Hcl 10 Mg Tablet 1 Tab PO DAILY Guaifenesin 600 Mg Tablet.er 600 Mg PO PRN Q8HRS PRN Clopidogrel (Clopidogrel Bisulfate) 75 Mg Tablet 1 Tab PO DAILY Novolog Flexpen (Insulin Aspart) 100 Unit/1 Ml Insuln.pen 0-3 Unit SQ QIDACHS PATIENT SLIDING SCALE. 70-249= 0 UNITS. 250-400= 3UNITS. BEFORE MEALS AND AT BEDTIME GIVE 3 UNITS IF BLOOD SUGAR 250 OR ABOVE. Diclofenac Sodium 100 Gm Gel..gram. 1 Carlos TP DAILY D3-50 (Cholecalciferol (Vitamin D3)) 50,000 Unit Capsule 50,000 Unit PO DAILY Trazodone Hcl 50 Mg Tablet 0.5 Tab PO QHS Reglan (Metoclopramide Hcl) 5 Mg Tablet 5 Mg PO DAILY Protonix (Pantoprazole Sodium) 20 Mg Tablet.dr 1 Tab PO DAILY Bomont 5-325 Tablet (Hydrocodone Bit/Acetaminophen) 1 Each Tablet 1 Tab PO Q4HRS Naproxen 500 Mg Tablet 1 Tab PO Q8HRS Lisinopril 2.5 Mg Tablet 1 Tab PO DAILY Lidocaine PATCH (Lidocaine) 1 Each Adh..patch 1 Each TP DAILY REMOVE AFTER 12 HOURS Lasix (Furosemide) 20 Mg Tablet 1 Tab PO DAILY 30 Days Duoneb 0.5-3(2.5) Mg/3 Ml (Albuterol/Ipratropium) 3 Ml Ampul.neb 3 Ml NEB QID Imodium A-D (Loperamide HCl) 2 Mg Capsule 2 Mg PO DAILY Guaifenesin 400 Mg Tablet 400 Mg PO Q8HRS Coreg (Carvedilol) 3.125 Mg Tablet 3.125 Mg PO BID Clopidogrel (Clopidogrel Bisulfate) 75 Mg Tablet 75 Mg PO DAILY Citalopram Hbr (Citalopram Hydrobromide) 10 Mg Tablet 10 Mg PO DAILY Atorvastatin Calcium 10 Mg Tablet 10 Mg PO DAILY Proair Hfa Inhaler (Albuterol Sulfate) 8.5 Gm Hfa.aer.ad 1 Puff INH PRN Q6HRS Acetaminophen 500 Mg Tablet 1 Tab PO PRN Q6HRS Glimepiride 1 Mg Tablet 1 Mg PO DAILY Simvastatin 40 Mg Tablet 40 Mg PO HS Omeprazole 20 Mg Capsule.dr 20 Mg PO DAILY Januvia (Sitagliptin Phosphate) 100 Mg Tablet 100 Mg PO DAILY Vitals/I & O Vital Sign - Last 24 Hours 11/06/19 11/06/19 11/06/19 11/06/19 15:30 17:25 18:26 18:27 Temp 97.9 97.9 Pulse 97 108 109 109 Resp B/P (MAP) 152/61 (91) 152/61 (91) 178/78 178/78 (111) Pulse Ox 88 90 50 O2 Delivery Nasal Cannula Venturi Mask Venturi Mask O2 Flow Rate 3.0 15.0 11/06/19 11/06/19 11/06/19 11/06/19 19:26 19:40 19:52 20:11 Temp 98.0 98.0 Pulse 90 Resp B/P (MAP) 177/129 (145) Pulse Ox 96 96 96 O2 Delivery Venturi Mask Venturi Mask Venturi Mask Venturi Mask O2 Flow Rate 15.0 15.0 15.0 15.0 11/06/19 11/06/19 11/06/19 11/06/19 22:44 22:50 23:08 23:20 Temp 98.3 98.3 Pulse 94 94 Resp B/P (MAP) 158/85 (109) 158/85 Pulse Ox 92 92 92 O2 Delivery Venturi Mask Venturi Mask Venturi Mask O2 Flow Rate 15.0 15.0 15.0 11/07/19 11/07/19 11/07/19 11/07/19 02:39 05:18 05:21 05:48 Temp 98.0 98.0 Pulse 85 98 Resp B/P (MAP) 136/63 (87) 140/64 Pulse Ox 95 95 95 O2 Delivery Venturi Mask Venturi Mask Venturi Mask O2 Flow Rate 15.0 15.0 15.0 11/07/19 11/07/19 11/07/19 06:32 08:00 10:59 Temp 98.3 98.3 98.3 98.3 Pulse 83 99 B/P (MAP) 142/76 (98) 146/71 (96) Pulse Ox 97 93 O2 Delivery Venturi Mask Venturi Mask Venturi Mask O2 Flow Rate 15.0 15.0 15.0 Intake and Output 11/06/19 11/06/19 11/07/19 15:00 23:00 07:00 Intake Total 0 ml 0 ml Output Total 1200 ml 1325 ml 1000 ml Balance -1200 ml -1325 ml -1000 ml Images EEG: Normal awake and asleep BRAIN W/O CONTRAST History:Reason: seizure / Spl. Instructions: / History: Technique: Multiplanar, multi sequential MR imaging was performed of the brain without contrast. Comparison: CT November 01, 2019 Findings: Confluent FLAIR hyperintense signal within the bilateral posterior parietal occipital subcortical white matter. Linear increased diffusion weighted signal within the right parietal lobe within this region. No intracranial hemorrhage. No mass effect. No hydrocephalus. Additional foci of FLAIR hyperintensity within the hemispheric white matter, most often due to chronic microvascular ischemia. No signal abnormality correlating with the previously mentioned hypodensity in the region of the caudate lobe, likely related to artifact. Imaged orbits are unremarkable. Imaged paranasal sinuses and mastoid air cells are clear. Impression: 1. Signal abnormality within the posterior parietal and occipital subcortical white matter, may represent posterior reversible encephalopathy syndrome. Recommend follow-up. Justicifation of Admission Dx: Justifications for Admission: Justification of Admission Dx: Yes Respiratory Failure: Mechanical Ventilation Altered Mental Status: Altered Mental Status FERNANDO TOSCANO MD Nov 07, 2019 13:16
[2019-11-07 13:39] LABS: CHOLESTEROL/HDL RATIO 4.6
[2019-11-07] MEDS: CLOPIDOGREL BISULFATE 75 MG TABLET PO SCH (15:35)
[2019-11-07] MEDS: VANCOMYCIN 1 GM in IV NORMAL SALINE 250ML 250 ML IV SCH (17:19)
[2019-11-07] MEDS: AMINO AC 3%/ELECTROLYTE/GLYCER 1,000 ML IV SCH ×2 (17:27→22:52)
[2019-11-07] MEDS: ATORVASTATIN CALCIUM 10 MG TABLET. PO SCH (21:05)
[2019-11-07] MEDS: LATANOPROST 0.005% OPHTH SOLUTION 2.5ML BOTTLE. OU SCH (21:05)
[2019-11-07] MEDS: levETIRAcetam 500 MG TABLET PO SCH (21:05)
[2019-11-07] MEDS: LACTOBACILLUS RHAMNOSUS GG 1 CAPSULE. PO SCH (21:05)
[2019-11-07] MEDS ORDERED: FUROSEMIDE 40 MG/4 ML VIAL. IVP ONE (21:45)
--- NOTE | 2019-11-07 22:06 | NUR ---
Pt's sats in mid-80's on 50% Venti. Spoke with Dr Morataya, order received for Lasix and bipap, no ABGs at this time. Bipap placed at 2200; sp02 97%. Will continue to monitor.
[2019-11-08] VITALS (11 sets, daily range): BP systolic 123–167; BP diastolic 60–94
[2019-11-08] MEDS: PIPERACILLIN/TAZOBACTAM 3.375 GM in IV NORMAL SALINE 50ML 50 ML IV SCH ×4 (05:42→23:18)
[2019-11-08] MEDS: AMINO AC 3%/ELECTROLYTE/GLYCER 1,000 ML IV SCH ×2 (05:42→20:52)
[2019-11-08 06:03] LABS: BASO # 0.1 x10^3/uL (0.0-0.2); BASO % 0 % (0-3); EOS # 0.1 x10^3/uL (0.0-0.7); EOS % 1 % (0-3); LYMPH # 1.3 x10^3/uL (1.0-4.8); LYMPH % 10 % (24-48); MEAN CORPUSCULAR HEMOGLOBIN 30 pg (25-35); MEAN CORPUSCULAR HGB CONC 34 g/dL (31-37); MEAN CORPUSCULAR VOLUME 90 fL (79-100); MONO # 1.7 x10^3/uL (0.0-1.1); MONO % 13 % (0-9); NEUT # 10.1 x10^3/uL (1.8-7.7); NEUT % 77 % (31-73); PLATELET COUNT 326 x10^3/uL (140-400); RED BLOOD COUNT 2.31 x10^6/uL (3.50-5.40); RED CELL DISTRIBUTION WIDTH 16.1 % (11.5-14.5); WHITE BLOOD COUNT 13.2 x10^3/uL (4.0-11.0)
[2019-11-08 06:08] LABS: CALCIUM 8.3 mg/dL (8.5-10.1); CREATININE 1.3 mg/dL (0.6-1.0); GFR 39.4; POTASSIUM 3.1 mmol/L (3.5-5.1)
[2019-11-08 06:13] LABS: HEMATOCRIT 20.8 % (36.0-47.0)
[2019-11-08] MEDS ORDERED: CYANOCOBALAMIN (VITAMIN B-12) 1,000 MCG/ML VIAL IM ONE (08:30)
[2019-11-08] MEDS: VANCOMYCIN PER PHARMACY MC PRN (08:54)
[2019-11-08] MEDS: FUROSEMIDE 40 MG TABLET. PO SCH (09:00)
--- NOTE | 2019-11-08 09:22 | PDOC ---
PROGRESS NOTES Assessment Seizure, no evidence of recurrence Possible posterior reversible encephalopathy syndrome, no evidence of this clinically now Having a cardiac catheterization today (11/07) Medical issues: spiration pneumonia, resolved respiratory failure, severe hypertension, hypokalemia (resolved), elevated troponin, elevated BNP, heart fa ilure, ejection fraction 25%, paroxysmal torsades, sinus bradycardia, anemia, peripheral artery disease, pulmonary hypertension Plan Levetiracetam Treatment of medical problems. Subjective Has a mild headache Objective Vital Signs Date Time Temp Pulse Resp B/P (MAP) Pulse Ox O2 Delivery O2 Flow Rate FiO2 11/08/19 07:27 99 BiPAP/CPAP 11/08/19 07:00 98.7 90 20 123/60 (81) 98.7 11/07/19 21:55 15.0 Intake and Output 11/08/19 07:00 Intake Total 660 ml Output Total 1100 ml Balance -440 ml Intake Oral 660 ml Output Urine Total 1100 ml PHYSICAL EXAM Alert. Oriented to place and person, off on date. PERRL. EOMI. CN: no focal findings. Muscle tone: normal. Muscle strength: 5/5 DTR: 2+ Plantar reflex: flexor Gait: not examined in bed. Sensory exam: no abnormal findings. No cerebellar signs elicited. Review of Relevant I have reviewed the following items regina (where applicable) has been applied. Labs Laboratory Tests Test 11/07/19 04:20 11/08/19 05:22 11/08/19 07:07 White Blood Count 19.6 x10^3/uL (4.0-11.0) 13.2 x10^3/uL (4.0-11.0) Red Blood Count 2.60 x10^6/uL (3.50-5.40) 2.31 x10^6/uL (3.50-5.40) Hemoglobin 7.9 g/dL (12.0-15.5) 7.0 g/dL (12.0-15.5) Hematocrit 23.6 % (36.0-47.0) 20.8 % (36.0-47.0) Mean Corpuscular Volume 91 fL (79-100) 90 fL (79-100) Mean Corpuscular Hemoglobin 30 pg (25-35) 30 pg (25-35) Mean Corpuscular Hemoglobin Concent 34 g/dL (31-37) 34 g/dL (31-37) Red Cell Distribution Width 16.1 % (11.5-14.5) 16.1 % (11.5-14.5) Platelet Count 361 x10^3/uL (140-400) 326 x10^3/uL (140-400) Neutrophils (%) (Auto) 79 % (31-73) 77 % (31-73) Lymphocytes (%) (Auto) 8 % (24-48) 10 % (24-48) Monocytes (%) (Auto) 13 % (0-9) 13 % (0-9) Eosinophils (%) (Auto) 0 % (0-3) 1 % (0-3) Basophils (%) (Auto) 0 % (0-3) 0 % (0-3) Neutrophils # (Auto) 15.6 x10^3/uL (1.8-7.7) 10.1 x10^3/uL (1.8-7.7) Lymphocytes # (Auto) 1.5 x10^3/uL (1.0-4.8) 1.3 x10^3/uL (1.0-4.8) Monocytes # (Auto) 2.5 x10^3/uL (0.0-1.1) 1.7 x10^3/uL (0.0-1.1) Eosinophils # (Auto) 0.0 x10^3/uL (0.0-0.7) 0.1 x10^3/uL (0.0-0.7) Basophils # (Auto) 0.0 x10^3/uL (0.0-0.2) 0.1 x10^3/uL (0.0-0.2) Segmented Neutrophils % 79 % (35-66) Band Neutrophils % 4 % (0-9) Lymphocytes % 7 % (24-48) Monocytes % 10 % (0-10) Platelet Estimate Adequate (ADEQUATE) Sodium Level 143 mmol/L (136-145) 140 mmol/L (136-145) Potassium Level 3.6 mmol/L (3.5-5.1) 3.1 mmol/L (3.5-5.1) Chloride Level 104 mmol/L (98-107) 101 mmol/L (98-107) Carbon Dioxide Level 29 mmol/L (21-32) 32 mmol/L (21-32) Anion Gap 10 (6-14) 7 (6-14) Blood Urea Nitrogen 25 mg/dL (7-20) 28 mg/dL (7-20) Creatinine 1.3 mg/dL (0.6-1.0) 1.3 mg/dL (0.6-1.0) Estimated GFR (Cockcroft-Gault) 39.4 39.4 Glucose Level 142 mg/dL (70-99) 177 mg/dL (70-99) Calcium Level 8.6 mg/dL (8.5-10.1) 8.3 mg/dL (8.5-10.1) Triglycerides Level 230 mg/dL (0-150) Cholesterol Level 152 mg/dL (0-200) LDL Cholesterol, Calculated 73 mg/dL (0-100) VLDL Cholesterol, Calculated 46 mg/dL (0-40) Non-HDL Cholesterol Calculated 119 mg/dL (0-129) HDL Cholesterol 33 mg/dL (40-60) Cholesterol/HDL Ratio 4.6 Glucose (Fingerstick) 163 mg/dL (70-99) Laboratory Tests Test 11/08/19 05:22 11/08/19 07:07 White Blood Count 13.2 x10^3/uL (4.0-11.0) Red Blood Count 2.31 x10^6/uL (3.50-5.40) Hemoglobin 7.0 g/dL (12.0-15.5) Hematocrit 20.8 % (36.0-47.0) Mean Corpuscular Volume 90 fL (79-100) Mean Corpuscular Hemoglobin 30 pg (25-35) Mean Corpuscular Hemoglobin Concent 34 g/dL (31-37) Red Cell Distribution Width 16.1 % (11.5-14.5) Platelet Count 326 x10^3/uL (140-400) Neutrophils (%) (Auto) 77 % (31-73) Lymphocytes (%) (Auto) 10 % (24-48) Monocytes (%) (Auto) 13 % (0-9) Eosinophils (%) (Auto) 1 % (0-3) Basophils (%) (Auto) 0 % (0-3) Neutrophils # (Auto) 10.1 x10^3/uL (1.8-7.7) Lymphocytes # (Auto) 1.3 x10^3/uL (1.0-4.8) Monocytes # (Auto) 1.7 x10^3/uL (0.0-1.1) Eosinophils # (Auto) 0.1 x10^3/uL (0.0-0.7) Basophils # (Auto) 0.1 x10^3/uL (0.0-0.2) Sodium Level 140 mmol/L (136-145) Potassium Level 3.1 mmol/L (3.5-5.1) Chloride Level 101 mmol/L (98-107) Carbon Dioxide Level 32 mmol/L (21-32) Anion Gap 7 (6-14) Blood Urea Nitrogen 28 mg/dL (7-20) Creatinine 1.3 mg/dL (0.6-1.0) Estimated GFR (Cockcroft-Gault) 39.4 Glucose Level 177 mg/dL (70-99) Calcium Level 8.3 mg/dL (8.5-10.1) Glucose (Fingerstick) 163 mg/dL (70-99) Medications Current Medications Fentanyl Citrate 30 ml @ 0 mls/hr CONT PRN IV SEE PROTOCOL; Start 11/02/19 at 02:45; Status Cancel Propofol 100 ml @ 0 mls/hr CONT PRN IV SEE PROTOCOL; Start 11/02/19 at 02:45; Status Cancel Fentanyl Citrate (Fentanyl 2ml Vial) 25 mcg PRN Q1HR PRN IV SEE COMMENTS; Start 11/02/19 at 02:45; Status Cancel Fentanyl Citrate (Fentanyl 2ml Vial) 50 mcg PRN Q1HR PRN IV SEE COMMENTS; Start 11/02/19 at 02:45; Status Cancel Chlorhexidine Gluconate (Peridex) 15 ml BID MM ; Start 11/02/19 at 09:00; Status Cancel Morphine Sulfate (Morphine Sulfate) 2 mg PRN Q1HR PRN IV SEE COMMENTS.; Start 11/02/19 at 02:45; Status Cancel Morphine Sulfate (Morphine Sulfate) 4 mg PRN Q1HR PRN IV SEE COMMENTS.; Start 11/02/19 at 02:45; Status Cancel Midazolam HCl 100 ml @ 0 mls/hr CONT PRN IV SEE PROTOCOL; Start 11/02/19 at 02:45; Status Cancel Diphenhydramine HCl (Benadryl) 25 mg PRN Q15MIN PRN IVP EPS Symptoms; Start 11/02/19 at 02:45; Status Cancel Nicardipine HCl 50 mg/Sodium Chloride 250 ml @ 25 mls/hr CONT PRN IV SEE I/O RECORD Last administered on 11/02/19at 16:45; Start 11/02/19 at 03:15 Propofol 100 ml @ As Directed STK-MED ONCE IV ; Start 11/02/19 at 02:49; Stop 11/02/19 at 03:22; Status DC Propofol 100 ml @ 0 mls/hr CONT PRN IV SEE PROTOCOL Last administered on 11/03/19at 11:18; Start 11/02/19 at 03:30; Stop 11/03/19 at 13:54; Status DC Fentanyl Citrate (Fentanyl 2ml Vial) 25 mcg PRN Q1HR PRN IV SEE COMMENTS; Start 11/02/19 at 03:30; Stop 11/06/19 at 10:08; Status DC Fentanyl Citrate (Fentanyl 2ml Vial) 50 mcg PRN Q1HR PRN IV SEE COMMENTS; Start 11/02/19 at 03:30; Stop 11/06/19 at 10:08; Status DC Chlorhexidine Gluconate (Peridex) 15 ml BID MM Last administered on 11/05/19at 08:54; Start 11/02/19 at 09:00; Stop 11/06/19 at 10:08; Status DC Famotidine (Pepcid Vial) 20 mg DAILY IVP Last administered on 11/07/19at 08:39; Start 11/02/19 at 09:00 Morphine Sulfate (Morphine Sulfate) 2 mg PRN Q1HR PRN IV SEE COMMENTS. Last administered on 11/04/19at 17:55; Start 11/02/19 at 03:30 Morphine Sulfate (Morphine Sulfate) 4 mg PRN Q1HR PRN IV SEE COMMENTS. Last administered on 11/07/19at 05:18; Start 11/02/19 at 03:30 Potassium Bicarbonate (Potassium Effervescent Tablet) 40 meq 1X ONCE PEG Last administered on 11/02/19at 08:38; Start 11/02/19 at 07:30; Stop 11/02/19 at 07:31; Status DC Potassium Bicarbonate (Potassium Effervescent Tablet) 40 meq 1X ONCE PEG Last administered on 11/02/19 10:02; Start 11/02/19 at 08:00; Stop 11/02/19 at 08:01; Status DC Potassium Bicarbonate (Potassium Effervescent Tablet) 40 meq 1X ONCE PEG Last administered on 11/02/19 10:41; Start 11/02/19 at 09:00; Stop 11/02/19 at 09:01 ; Status DC Magnesium Sulfate 50 ml @ 25 mls/hr 1X ONCE IV Last administered on 11/02/19 08:37; Start 11/02/19 at 07:30; Stop 11/02/19 at 09:29; Status DC Famotidine (Pepcid Vial) 20 mg DAILY IVP ; Start 11/02/19 at 09:00; Status UNV Ceftriaxone Sodium (Rocephin) 1 gm Q24H IVP Last administered on 11/04/19 08:46; Start 11/02/19 at 09:00; Stop 11/04/19 at 15:04; Status DC Levetiracetam 1000 mg/Dextrose 110 ml @ 440 mls/hr Q12HR IV Last administered on 11/03/19 09:13; Start 11/02/19 at 11:00; Stop 11/03/19 at 09:32; Status DC Acetaminophen (Tylenol) 650 mg PRN Q6HRS PRN PO PAIN; Start 11/02/19 at 10:15 Atorvastatin Calcium (Lipitor) 10 mg QHS PO Last administered on 11/07/19 21:05; Start 11/02/19 at 21:00 Carvedilol (Coreg) 3.125 mg BIDWMEALS PO Last administered on 11/03/19 08:02; Start 11/02/19 at 11:00; Stop 11/07/19 at 12:02; Status DC Cetirizine HCl (ZyrTEC) 10 mg DAILY PO Last administered on 11/05/19 08:53; Start 11/02/19 at 11:00 Citalopram Hydrobromide (CeleXA) 15 mg DAILY PO Last administered on 11/03/19 09:14; Start 11/02/19 at 11:00; Stop 11/03/19 at 13:50; Status DC Clopidogrel Bisulfate (Plavix) 75 mg DAILY PO Last administered on 6/23/20at 08:53; Start 11/02/19 at 11:00; Stop 11/05/19 at 15:30; Status DC Diclofenac Sodium (Voltaren) 1 carlos BID PRN TP BREAKTHROUGH PAIN; Start 11/02/19 at 10:15 Furosemide (Lasix) 20 mg QEVNG PO Last administered on 11/04/19at 17:54; Start 11/02/19 at 18:00; Stop 11/07/19 at 11:59; Status DC Furosemide (Lasix) 40 mg QAM PO Last administered on 11/05/19at 08:54; Start 11/02/19 at 11:00; Stop 11/07/19 at 11:59; Status DC Albuterol Sulfate (Ventolin Neb Soln) 2.5 mg PRN Q4HRS PRN NEB SHORTNESS OF BREATH Last administered on 11/07/19at 20:16; Start 11/02/19 at 10:30 Latanoprost (Xalatan) 1 drop QHS OU Last administered on 11/07/19at 21:05; Start 11/02/19 at 21:00 Lidocaine (Lidoderm) 1 patch PRN DAILY PRN TP PAIN; Start 11/02/19 at 09:00 Pantoprazole Sodium (Protonix) 20 mg DAILYAC PO ; Start 11/03/19 at 07:30; Status UNV Phenol (Chloraseptic) 1 spray PRN Q6HRS PRN MM SORE THROAT; Start 11/02/19 at 10:15 Piperacillin Sod/ Tazobactam Sod 3.375 gm/Sodium Chloride 50 ml @ 100 mls/hr Q6HRS IV Last administered on 11/08/19at 05:42; Start 11/02/19 at 11:00 Vancomycin HCl (Vanco Per Pharmacy) 1 each PRN DAILY PRN MC SEE COMMENTS Last administered on 11/08/19at 08:54; Start 11/02/19 at 10:30 Vancomycin HCl 1 gm/Sodium Chloride 250 ml @ 250 mls/hr Q24H IV Last administered on 11/03/19at 22:57; Start 11/02/19 at 22:00; Stop 11/04/19 at 07:00; Status DC Vancomycin HCl (Vancomycin Trough Level) 1 each 1X ONCE MC Last administered on 11/03/19at 21:30; Start 11/03/19 at 21:30; Stop 11/03/19 at 21:31; Status DC Levetiracetam 500 mg/Dextrose 105 ml @ 420 mls/hr Q12HR IV Last administered on 11/07/19at 08:38; Start 11/03/19 at 21:00; Stop 11/07/19 at 13:16; Status DC Magnesium Sulfate 50 ml @ 25 mls/hr 1X ONCE IV Last administered on 11/03/19at 13:33; Start 11/03/19 at 12:00; Stop 11/03/19 at 13:59; Status DC Sertraline HCl (Zoloft) 50 mg DAILY PO Last administered on 11/05/19at 08:53; Start 11/04/19 at 09:00 Losartan Potassium (Cozaar) 25 mg DAILY NG Last administered on 11/05/19at 08:54; Start 11/03/19 at 14:00; Stop 11/05/19 at 09:40; Status DC Dexmedetomidine HCl 400 mcg/ Sodium Chloride 100 ml @ 0 mls/hr CONT PRN IV PER PROTOCOL Last administered on 11/05/19at 02:05; Start 11/03/19 at 14:00; Stop 11/06/19 at 10:08; Status DC Sodium Chloride 500 ml @ 500 mls/hr 1X PRN PRN IV SEE COMMENTS; Start 11/03/19 at 14:00 Atropine Sulfate (ATROPINE 0.5mg SYRINGE) 0.5 mg PRN Q5MIN PRN IV SEE COMMENTS; Start 11/03/19 at 14:00; Stop 11/07/19 at 12:28; Status DC Vancomycin HCl 1 gm/Sodium Chloride 250 ml @ 250 mls/hr Q18H IV Last administered on 11/07/19at 17:19; Start 11/04/19 at 17:00 Vancomycin HCl (Vancomycin Trough Level) 1 each 1X ONCE MC Last administered on 11/06/19at 04:30; Start 11/06/19 at 04:30; Stop 11/06/19 at 04:31; Status DC Losartan Potassium (Cozaar) 50 mg DAILY NG Last administered on 11/05/19at 10:01; Start 11/05/19 at 09:45 Epinephrine (S2 Racepinephrine) 0.5 ml 1X ONCE NEB Last administered on 11/05/19at 12:00; Start 11/05/19 at 12:00; Stop 11/05/19 at 12:01; Status DC Methylprednisolone Sodium Succinate (SOLU-Medrol 125MG VIAL) 100 mg 1X ONCE IV Last administered on 11/05/19at 12:15; Start 11/05/19 at 12:00; Stop 11/05/19 at 12:01; Status DC Furosemide (Lasix) 20 mg 1X STAT IVP Last administered on 11/05/19at 12:14; Start 11/05/19 at 12:08; Stop 11/05/19 at 12:12; Status DC Furosemide (Lasix) 20 mg 1X ONCE IVP Last administered on 11/05/19at 14:26; Start 11/05/19 at 14:15; Stop 11/05/19 at 14:16; Status DC Clopidogrel Bisulfate (Plavix) 75 mg DAILY PO Last administered on 11/07/19at 15:35; Start 11/07/19 at 11:00 Metoprolol Tartrate (Lopressor Vial) 5 mg ONCE ONCE IVP Last administered on 11/05/19at 23:56; Start 11/06/19 at 00:00; Stop 11/06/19 at 00:01; Status DC Potassium Chloride (Klor-Con) 40 meq 1X PRN PRN PO PER PROTOCOL; Start 11/05/19 at 23:45 Potassium Bicarbonate (Potassium Effervescent Tablet) 40 meq 1X PRN PRN PO PER PROTOCOL; Start 11/05/19 at 23:45 Potassium Chloride/Water 100 ml @ 100 mls/hr PRN Q1HR PRN IV PER PROTOCOL Last administered on 11/06/19at 06:03; Start 11/05/19 at 23:45; Stop 11/06/19 at 06:11; Status DC Potassium Chloride/Water 100 ml @ 100 mls/hr PRN Q1HR PRN IV PER PROTOCOL; Start 11/05/19 at 23:45 Potassium Chloride (Klor-Con) 40 meq PRN Q2HRS PRN PO PER PROTOCOL; Start 11/05/19 at 23:45 Potassium Chloride/Water 100 ml @ 100 mls/hr PRN Q1HR PRN IV PER PROTOCOL; Start 11/05/19 at 23:45 Potassium Chloride/Water 100 ml @ 100 mls/hr PRN Q1HR PRN IV PER PROTOCOL; Start 11/05/19 at 23:45; Stop 11/06/19 at 07:44; Status DC Potassium Chloride (Klor-Con) 40 meq PRN Q2HRS PRN PO PER PROTOCOL; Start 11/05/19 at 23:45 Potassium Chloride/Water 100 ml @ 100 mls/hr PRN Q1HR PRN IV PER PROTOCOL; Start 11/05/19 at 23:45 Potassium Chloride/Water 100 ml @ 100 mls/hr PRN Q1HR PRN IV PER PROTOCOL; Start 11/06/19 at 00:01; Stop 11/06/19 at 07:44; Status DC Magnesium Sulfate 100 ml @ 50 mls/hr PRN DAILY PRN IV PER PROTOCOL; Start 11/06/19 at 00:00 Potassium Phos/ Sodium Phos (Phos-Nak) 1 pkt PRN BID PRN PO PER PROTOCOL; Start 11/06/19 at 09:00 Sodium Phosphate 40 mmol/Sodium Chloride 263.3333 ml @ 62.5 mls/hr 1X PRN PRN IV PER PROTOCOL; Start 11/05/19 at 23:45 Potassium Phosphate 13.6 mmol/Sodium Chloride 254.5333 ml @ 62.5 mls/hr PRN Q4HRS PRN IV PER PROTOCOL; Start 11/05/19 at 23:45 Magnesium Sulfate 50 ml @ 25 mls/hr 1X ONCE IV Last administered on 11/06/19at 00:31; Start 11/06/19 at 01:00; Stop 11/06/19 at 02:59; Status DC Metoprolol Tartrate (Lopressor Vial) 5 mg 1X ONCE IVP Last administered on 11/06/19at 01:52; Start 11/06/19 at 02:00; Stop 11/06/19 at 02:01; Status DC Miscellaneous (Lidoderm Patch Removal) 1 ea PRN QHS PRN MC SEE COMMENTS; Start 11/06/19 at 08:00 Metoprolol Tartrate (Lopressor Vial) 5 mg Q6HRS IVP Last administered on 11/07/19at 05:21; Start 11/06/19 at 12:00; Stop 11/07/19 at 11:59; Status DC Cyanocobalamin (Vitamin B-12) 1,000 mcg DAILY IM Last administered on 11/07/19at 08:39; Start 11/06/19 at 14:30 Furosemide (Lasix) 40 mg 1X ONCE IVP Last administered on 11/06/19at 17:35; Start 11/06/19 at 17:30; Stop 11/06/19 at 17:31; Status DC Amino Acids/ Glycerin/ Electrolytes 1,000 ml @ 80 mls/hr [id number] IV Last administered on 11/08/19at 05:42; Start 11/07/19 at 10:15 Metoprolol Succinate (Toprol Xl) 50 mg DAILY PO ; Start 11/08/19 at 09:00 Furosemide (Lasix) 40 mg DAILY PO ; Start 11/08/19 at 09:00 Lactobacillus Rhamnosus (Culturelle) 1 cap BID PO Last administered on 11/07/19at 21:05; Start 11/07/19 at 21:00 Levetiracetam (Keppra) 500 mg BID PO Last administered on 11/07/19at 21:05; Start 11/07/19 at 21:00 Furosemide (Lasix) 40 mg 1X ONCE IVP Last administered on 11/07/19at 21:55; Start 11/07/19 at 21:45; Stop 11/07/19 at 21:46; Status DC Cyanocobalamin (Vitamin B-12) 1,000 mcg 1X ONCE IM ; Start 11/08/19 at 08:30; Stop 11/08/19 at 08:31; Status DC Active Scripts Active Reported Januvia (Sitagliptin Phosphate) 100 Mg Tablet 1 Tab PO DAILY Pantoprazole Sodium (Pantoprazole Sodium) 40 Mg Tablet. 20 Mg PO DAILYAC Glimepiride 1 Mg Tablet 1 Tab PO DAILY Hydrocodone-Apap 5-325 (Hydrocodone Bit/Acetaminophen) 1 Tab Tablet 1 Tab PO PRN Q6HRS PRN Lisinopril 10 Mg Tablet 1 Tab PO DAILY Acetaminophen 500 Mg Tablet 1 Tab PO BID Trazodone Hcl 50 Mg Tablet 0.5 Tab PO QHS Omeprazole 20 Mg Capsule. 1 Cap PO DAILY Novolog (Insulin Aspart) 100 Unit/1 Ml Cartridge 100 Unit SQ QIDACHS Naproxen 500 Mg Tablet 1 Tab PO PRN Q8HRS PRN Lidocaine PATCH (Lidocaine) 1 Each Adh..patch 1 Each TP DAILY REMOVE AFTER 12 HOURS Latanoprost 2.5 Ml Drops 1 Drop EACHEYE QHS Duoneb 0.5-3(2.5) Mg/3 Ml (Albuterol/Ipratropium) 3 Ml Ampul.neb 3 Ml NEB PRN Q4HRS PRN Imodium A-D (Loperamide HCl) 2 Mg Capsule 2 Mg PO PRN PRN Flonase Allergy Relief (Fluticasone Propionate) 9.9 Ml Hurricane.susp 1 Sprays NS PRN Q12HRS PRN Coreg (Carvedilol) 3.125 Mg Tablet 3.125 Mg PO BIDWMEALS Chloraseptic (Phenol) 20 Ml Hurricane 1 Hurricane MM PRN Q6HRS PRN Calcium Citrate 250 Mg Tablet 500 Mg PO DAILY Tylenol (Acetaminophen) 325 Mg Tablet 2 Tab PO PRN Q6HRS PRN Atorvastatin Calcium 10 Mg Tablet 1 Tab PO QHS Proair Respiclick (Albuterol Sulfate) 90 Mcg Aer.pow.ba 1 Puff IH PRN Q6HRS PRN Alendronate Sodium 70 Mg Tablet 1 Tab PO WEEKLY Citalopram Hbr (Citalopram Hydrobromide) 10 Mg Tablet 1.5 Tab PO DAILY Cetirizine Hcl 10 Mg Tablet 1 Tab PO DAILY Guaifenesin 600 Mg Tablet.er 600 Mg PO PRN Q8HRS PRN Clopidogrel (Clopidogrel Bisulfate) 75 Mg Tablet 1 Tab PO DAILY Novolog Flexpen (Insulin Aspart) 100 Unit/1 Ml Insuln.pen 0-3 Unit SQ QIDACHS PATIENT SLIDING SCALE. 70-249= 0 UNITS. 250-400= 3UNITS. BEFORE MEALS AND AT BEDTIME GIVE 3 UNITS IF BLOOD SUGAR 250 OR ABOVE. Diclofenac Sodium 100 Gm Gel..gram. 1 Carlos TP DAILY D3-50 (Cholecalciferol (Vitamin D3)) 50,000 Unit Capsule 50,000 Unit PO DAILY Trazodone Hcl 50 Mg Tablet 0.5 Tab PO QHS Reglan (Metoclopramide Hcl) 5 Mg Tablet 5 Mg PO DAILY Protonix (Pantoprazole Sodium) 20 Mg Tablet.dr 1 Tab PO DAILY [place] 5-325 Tablet (Hydrocodone Bit/Acetaminophen) 1 Each Tablet 1 Tab PO Q4HRS Naproxen 500 Mg Tablet 1 Tab PO Q8HRS Lisinopril 2.5 Mg Tablet 1 Tab PO DAILY Lidocaine PATCH (Lidocaine) 1 Each Adh..patch 1 Each TP DAILY REMOVE AFTER 12 HOURS Lasix (Furosemide) 20 Mg Tablet 1 Tab PO DAILY 30 Days Duoneb 0.5-3(2.5) Mg/3 Ml (Albuterol/Ipratropium) 3 Ml Ampul.neb 3 Ml NEB QID Imodium A-D (Loperamide HCl) 2 Mg Capsule 2 Mg PO DAILY Guaifenesin 400 Mg Tablet 400 Mg PO Q8HRS Coreg (Carvedilol) 3.125 Mg Tablet 3.125 Mg PO BID Clopidogrel (Clopidogrel Bisulfate) 75 Mg Tablet 75 Mg PO DAILY Citalopram Hbr (Citalopram Hydrobromide) 10 Mg Tablet 10 Mg PO DAILY Atorvastatin Calcium 10 Mg Tablet 10 Mg PO DAILY Proair Hfa Inhaler (Albuterol Sulfate) 8.5 Gm Hfa.aer.ad 1 Puff INH PRN Q6HRS Acetaminophen 500 Mg Tablet 1 Tab PO PRN Q6HRS Glimepiride 1 Mg Tablet 1 Mg PO DAILY Simvastatin 40 Mg Tablet 40 Mg PO HS Omeprazole 20 Mg Capsule.dr 20 Mg PO DAILY Januvia (Sitagliptin Phosphate) 100 Mg Tablet 100 Mg PO DAILY Vitals/I & O Vital Sign - Last 24 Hours 11/07/19 11/07/19 11/07/19 11/07/19 10:59 14:58 19:33 19:40 Temp 98.3 98.6 98.1 98.3 98.6 98.1 Pulse 99 104 102 Resp 20 20 19 B/P (MAP) 146/71 (96) 154/79 (104) 151/78 (102) Pulse Ox 93 92 94 O2 Delivery Venturi Mask Nasal Cannula Nasal Cannula Nasal Cannula O2 Flow Rate 15.0 5.0 5.0 5.0 11/07/19 11/07/19 11/07/19 11/07/19 20:17 21:55 22:14 23:08 Temp 98.0 98.0 Pulse 111 105 B/P (MAP) 137/61 (86) 137/61 (86) Pulse Ox 88 88 97 99 O2 Delivery Nasal Cannula Venturi Mask BiPAP/CPAP BiPAP/CPAP O2 Flow Rate 15.0 15.0 11/07/19 11/08/19 11/08/19 11/08/19 23:45 01:34 02:33 04:25 Temp 97.6 97.6 Pulse 102 Resp 20 B/P (MAP) 142/71 (94) Pulse Ox 97 100 100 100 O2 Delivery BiPAP/CPAP BiPAP/CPAP BiPAP/CPAP BiPAP/CPAP 11/08/19 11/08/19 07:00 07:27 Temp 98.7 98.7 Pulse 90 Resp 20 B/P (MAP) 123/60 (81) Pulse Ox 100 99 O2 Delivery BiPAP/CPAP BiPAP/CPAP Intake and Output 11/07/19 11/07/19 11/08/19 15:00 23:00 07:00 Intake Total 400 ml 240 ml 20 ml Output Total 450 ml 650 ml Balance 400 ml -210 ml -630 ml Justicifation of Admission Dx: Justifications for Admission: Justification of Admission Dx: Yes Respiratory Failure: Mechanical Ventilation Altered Mental Status: Altered Mental Status FERNANDO TOSCANO MD Nov 08, 2019 09:22
--- NOTE | 2019-11-08 09:27 | PDOC ---
ANNITA [employer] INSPECTOR 11/08/19 0927: CARDIO Progress Notes Date and Time Date of Service 11/08/2019 Time of Evaluation 09 Subjective Subjective: No Chest Pain, No shortness of breath, No Palpitations Vitals Vitals Vital Signs Date Time Temp Pulse Resp B/P (MAP) Pulse Ox O2 Delivery O2 Flow Rate FiO2 11/08/19 07:27 99 BiPAP/CPAP 11/08/19 07:00 98.7 90 20 123/60 (81) 98.7 11/07/19 21:55 15.0 Weight Weight [ ] Input and Output Intake and Output Intake and Output 11/08/19 07:00 Intake Total 660 ml Output Total 1100 ml Balance -440 ml Intake Oral 660 ml Output Urine Total 1100 ml Laboratory Labs Laboratory Tests Test 11/08/19 05:22 11/08/19 07:07 White Blood Count 13.2 x10^3/uL (4.0-11.0) Red Blood Count 2.31 x10^6/uL (3.50-5.40) Hemoglobin 7.0 g/dL (12.0-15.5) Hematocrit 20.8 % (36.0-47.0) Mean Corpuscular Volume 90 fL (79-100) Mean Corpuscular Hemoglobin 30 pg (25-35) Mean Corpuscular Hemoglobin Concent 34 g/dL (31-37) Red Cell Distribution Width 16.1 % (11.5-14.5) Platelet Count 326 x10^3/uL (140-400) Neutrophils (%) (Auto) 77 % (31-73) Lymphocytes (%) (Auto) 10 % (24-48) Monocytes (%) (Auto) 13 % (0-9) Eosinophils (%) (Auto) 1 % (0-3) Basophils (%) (Auto) 0 % (0-3) Neutrophils # (Auto) 10.1 x10^3/uL (1.8-7.7) Lymphocytes # (Auto) 1.3 x10^3/uL (1.0-4.8) Monocytes # (Auto) 1.7 x10^3/uL (0.0-1.1) Eosinophils # (Auto) 0.1 x10^3/uL (0.0-0.7) Basophils # (Auto) 0.1 x10^3/uL (0.0-0.2) Sodium Level 140 mmol/L (136-145) Potassium Level 3.1 mmol/L (3.5-5.1) Chloride Level 101 mmol/L (98-107) Carbon Dioxide Level 32 mmol/L (21-32) Anion Gap 7 (6-14) Blood Urea Nitrogen 28 mg/dL (7-20) Creatinine 1.3 mg/dL (0.6-1.0) Estimated GFR (Cockcroft-Gault) 39.4 Glucose Level 177 mg/dL (70-99) Calcium Level 8.3 mg/dL (8.5-10.1) Glucose (Fingerstick) 163 mg/dL (70-99) Physical Exam HEENT: Neck Supple W Full Motion Chest: Symmetric LUNGS: Other (corase throughout) Heart: RRR (SR), murmurs (4/6 systolic murmur to LLS border) Abdomen: Soft N/T Extremities: No Edema, No Calf Tenderness Neurology: alert, follow commands, confused Assessment Assessment 1. Accelerated hypertension: controlled 2. New onset seizure disorder with encephalopathy: on keppra per neurology. pt remains pleasantly confused 3. Acute respiratory failure, multifactorial: s/p intubation, treat per pulmonary team. COVID test negative 4. Acute on chronic diastolic/systolic heart failure: appears better 5. Mild troponin elevation: multifactorial 6. Paroxysmal Torsades: none further after BB initiation 7. Asymptomatic SB: lowest 50s. none further, no pauses 8. Normocytic anemia with hx of MGUS: Hgb 7.with no overt bleed 9. Protein malnutrition 10. Hx of LE PAD: hence on plavix with past stenting in 2017 11. Cardiomyopathy: EF at 25% New 12. Moderate to severe TR 13. Severe Pulmonary HTN: PAP 83 mmhg New 14. Iodine allergy: unknown reaction Recommendations 1. Continue toprol XL. Continue lasix therapy. Continue plavix. Transfusion today and xtra lasix afterwards. GI consult pending 2. Discussed with RN, will obtain consent with family. LHC/RHC cancelled today due to anemia. Monitor Hgb over the weekend and will plan for cath and will pretreat for iodine allergy. No prior ischemic workup per chart review 3. Monitor renal function. DC ARB and will start on low dose entresto on Monday per renal function 4. FR 2L caution with IVF Justicifation of Admission Dx: Justifications for Admission: Justification of Admission Dx: Yes Respiratory Failure: Mechanical Ventilation Altered Mental Status: Altered Mental Status WALTER MCKEE MD 11/08/19 1832: CARDIO Progress Notes Assessment Assessment Patient seen and examined Accelerated hypertension: controlled New onset seizure disorder with encephalopathy: on keppra per neurology. pt remains pleasantly confused Acute respiratory failure, multifactorial: s/p intubation, treat per pulmonary team. COVID test negative Acute on chronic diastolic/systolic heart failure: appears better. Decreased ejection fraction at 25%. Heart catheterization postponed due to further drop in hemoglobin hematocrit requiring transfusions. We will continue to monitor. Pre treat for reported iodine allergy. Mild troponin elevation: multifactorial Paroxysmal Torsades: none further after BB initiation Hx of LE PAD: hence on plavix with past stenting in 2017 Cardiomyopathy: EF at 25% New Moderate to severe TR Severe Pulmonary HTN: PAP 83 mmhg ANNITA Ospina APRN Nov 08, 2019 09:27 WALTER MCKEE MD Nov 08, 2019 18:32
[2019-11-08] MEDS ORDERED: POTASSIUM CHLORIDE 20 MEQ TABLET.ER. PO ONE ×4 (09:30→12:30)
--- NOTE | 2019-11-08 09:33 | PDOC ---
PULMONARY PROGRESS NOTES Subjective Extubated 11/04 Patient currently on BiPAP 18/8 50% FiO2 Vitals Vital Signs Date Time Temp Pulse Resp B/P (MAP) Pulse Ox O2 Delivery O2 Flow Rate FiO2 11/08/19 07:27 99 BiPAP/CPAP 11/08/19 07:00 98.7 90 20 123/60 (81) 98.7 11/07/19 21:55 15.0 ROS: No Chest Pain, No Abdominal Pain General: Alert Lungs: Clear Cardiovascular: S1 Abdomen: Soft Neuro Exam: Alert Extremities: No Edema Skin: Warm Labs Laboratory Tests Test 11/07/19 04:20 11/08/19 05:22 11/08/19 07:07 White Blood Count 19.6 x10^3/uL (4.0-11.0) 13.2 x10^3/uL (4.0-11.0) Red Blood Count 2.60 x10^6/uL (3.50-5.40) 2.31 x10^6/uL (3.50-5.40) Hemoglobin 7.9 g/dL (12.0-15.5) 7.0 g/dL (12.0-15.5) Hematocrit 23.6 % (36.0-47.0) 20.8 % (36.0-47.0) Mean Corpuscular Volume 91 fL (79-100) 90 fL (79-100) Mean Corpuscular Hemoglobin 30 pg (25-35) 30 pg (25-35) Mean Corpuscular Hemoglobin Concent 34 g/dL (31-37) 34 g/dL (31-37) Red Cell Distribution Width 16.1 % (11.5-14.5) 16.1 % (11.5-14.5) Platelet Count 361 x10^3/uL (140-400) 326 x10^3/uL (140-400) Neutrophils (%) (Auto) 79 % (31-73) 77 % (31-73) Lymphocytes (%) (Auto) 8 % (24-48) 10 % (24-48) Monocytes (%) (Auto) 13 % (0-9) 13 % (0-9) Eosinophils (%) (Auto) 0 % (0-3) 1 % (0-3) Basophils (%) (Auto) 0 % (0-3) 0 % (0-3) Neutrophils # (Auto) 15.6 x10^3/uL (1.8-7.7) 10.1 x10^3/uL (1.8-7.7) Lymphocytes # (Auto) 1.5 x10^3/uL (1.0-4.8) 1.3 x10^3/uL (1.0-4.8) Monocytes # (Auto) 2.5 x10^3/uL (0.0-1.1) 1.7 x10^3/uL (0.0-1.1) Eosinophils # (Auto) 0.0 x10^3/uL (0.0-0.7) 0.1 x10^3/uL (0.0-0.7) Basophils # (Auto) 0.0 x10^3/uL (0.0-0.2) 0.1 x10^3/uL (0.0-0.2) Segmented Neutrophils % 79 % (35-66) Band Neutrophils % 4 % (0-9) Lymphocytes % 7 % (24-48) Monocytes % 10 % (0-10) Platelet Estimate Adequate (ADEQUATE) Sodium Level 143 mmol/L (136-145) 140 mmol/L (136-145) Potassium Level 3.6 mmol/L (3.5-5.1) 3.1 mmol/L (3.5-5.1) Chloride Level 104 mmol/L (98-107) 101 mmol/L (98-107) Carbon Dioxide Level 29 mmol/L (21-32) 32 mmol/L (21-32) Anion Gap 10 (6-14) 7 (6-14) Blood Urea Nitrogen 25 mg/dL (7-20) 28 mg/dL (7-20) Creatinine 1.3 mg/dL (0.6-1.0) 1.3 mg/dL (0.6-1.0) Estimated GFR (Cockcroft-Gault) 39.4 39.4 Glucose Level 142 mg/dL (70-99) 177 mg/dL (70-99) Calcium Level 8.6 mg/dL (8.5-10.1) 8.3 mg/dL (8.5-10.1) Triglycerides Level 230 mg/dL (0-150) Cholesterol Level 152 mg/dL (0-200) LDL Cholesterol, Calculated 73 mg/dL (0-100) VLDL Cholesterol, Calculated 46 mg/dL (0-40) Non-HDL Cholesterol Calculated 119 mg/dL (0-129) HDL Cholesterol 33 mg/dL (40-60) Cholesterol/HDL Ratio 4.6 Glucose (Fingerstick) 163 mg/dL (70-99) Laboratory Tests Test 11/08/19 05:22 11/08/19 07:07 White Blood Count 13.2 x10^3/uL (4.0-11.0) Red Blood Count 2.31 x10^6/uL (3.50-5.40) Hemoglobin 7.0 g/dL (12.0-15.5) Hematocrit 20.8 % (36.0-47.0) Mean Corpuscular Volume 90 fL (79-100) Mean Corpuscular Hemoglobin 30 pg (25-35) Mean Corpuscular Hemoglobin Concent 34 g/dL (31-37) Red Cell Distribution Width 16.1 % (11.5-14.5) Platelet Count 326 x10^3/uL (140-400) Neutrophils (%) (Auto) 77 % (31-73) Lymphocytes (%) (Auto) 10 % (24-48) Monocytes (%) (Auto) 13 % (0-9) Eosinophils (%) (Auto) 1 % (0-3) Basophils (%) (Auto) 0 % (0-3) Neutrophils # (Auto) 10.1 x10^3/uL (1.8-7.7) Lymphocytes # (Auto) 1.3 x10^3/uL (1.0-4.8) Monocytes # (Auto) 1.7 x10^3/uL (0.0-1.1) Eosinophils # (Auto) 0.1 x10^3/uL (0.0-0.7) Basophils # (Auto) 0.1 x10^3/uL (0.0-0.2) Sodium Level 140 mmol/L (136-145) Potassium Level 3.1 mmol/L (3.5-5.1) Chloride Level 101 mmol/L (98-107) Carbon Dioxide Level 32 mmol/L (21-32) Anion Gap 7 (6-14) Blood Urea Nitrogen 28 mg/dL (7-20) Creatinine 1.3 mg/dL (0.6-1.0) Estimated GFR (Cockcroft-Gault) 39.4 Glucose Level 177 mg/dL (70-99) Calcium Level 8.3 mg/dL (8.5-10.1) Glucose (Fingerstick) 163 mg/dL (70-99) Medications Active Scripts Medications Dose Route/Sig Max Daily Dose Days Date Category Dose Instructions Deniseia (Sitagliptin Phosphate) 100 Mg Tablet 1 Tab PO DAILY 11/02/19 Reported Pantoprazole Sodium (Pantoprazole Sodium) 40 Mg Tablet.dr 20 Mg PO DAILYAC 11/02/19 Reported Glimepiride 1 Mg Tablet 1 Tab PO DAILY 11/02/19 Reported Hydrocodone-Apap 5-325 (Hydrocodone Bit/Acetaminophen) 1 Tab Tablet 1 Tab PO PRN Q6HRS PRN 11/02/19 Reported Lisinopril 10 Mg Tablet 1 Tab PO DAILY 11/02/19 Reported Acetaminophen 500 Mg Tablet 1 Tab PO BID 11/30/18 Reported Trazodone Hcl 50 Mg Tablet 0.5 Tab PO QHS 11/30/18 Reported Omeprazole 20 Mg Capsule. 1 Cap PO DAILY 11/30/18 Reported Novolog (Insulin Aspart) 100 Unit/1 Ml Cartridge 100 Unit SQ QIDACHS 11/30/18 Reported Naproxen 500 Mg Tablet 1 Tab PO PRN Q8HRS PRN 11/30/18 Reported Lidocaine PATCH (Lidocaine) 1 Each Adh..patch 1 Each TP DAILY 11/30/18 Reported REMOVE AFTER 12 HOURS Latanoprost 2.5 Ml Drops 1 Drop EACHEYE QHS 11/30/18 Reported Duoneb 0.5-3(2.5) Mg/3 Ml (Albuterol/Ipratropium) 3 Ml Ampul.neb 3 Ml NEB PRN Q4HRS PRN 11/30/18 Reported Imodium A-D (Loperamide HCl) 2 Mg Capsule 2 Mg PO PRN PRN 11/30/18 Reported Flonase Allergy Relief (Fluticasone Propionate) 9.9 Ml [place].susp 1 Sprays NS PRN Q12HRS PRN 11/30/18 Reported Coreg (Carvedilol) 3.125 Mg Tablet 3.125 Mg PO BIDWMEALS 11/30/18 Reported Chloraseptic (Phenol) 20 Ml [place] 1 [place] MM PRN Q6HRS PRN 11/30/18 Reported Calcium Citrate 250 Mg Tablet 500 Mg PO DAILY 11/30/18 Reported Tylenol (Acetaminophen) 325 Mg Tablet 2 Tab PO PRN Q6HRS PRN 11/30/18 Reported Atorvastatin Calcium 10 Mg Tablet 1 Tab PO QHS 11/30/18 Reported Proair Respiclick (Albuterol Sulfate) 90 Mcg Aer.pow.ba 1 Puff IH PRN Q6HRS PRN 01/18/17 Reported Alendronate Sodium 70 Mg Tablet 1 Tab PO WEEKLY 01/18/17 Reported Citalopram Hbr (Citalopram Hydrobromide) 10 Mg Tablet 1.5 Tab PO DAILY 01/18/17 Reported Cetirizine Hcl 10 Mg Tablet 1 Tab PO DAILY 01/18/17 Reported Guaifenesin 600 Mg Tablet.er 600 Mg PO PRN Q8HRS PRN 01/18/17 Reported Clopidogrel (Clopidogrel Bisulfate) 75 Mg Tablet 1 Tab PO DAILY 01/18/17 Reported Novolog Flexpen (Insulin Aspart) 100 Unit/1 Ml Insuln.pen 0-3 Unit SQ QIDACHS 10/25/19 Reported PATIENT SLIDING SCALE. 70-249= 0 UNITS. 250-400= 3UNITS. BEFORE MEALS AND AT BEDTIME GIVE 3 UNITS IF BLOOD SUGAR 250 OR ABOVE. Diclofenac Sodium 100 Gm Gel..gram. 1 Carlos TP DAILY 10/25/19 Reported D3-50 (Cholecalciferol (Vitamin D3)) 50,000 Unit Capsule 50,000 Unit PO DAILY 10/25/19 Reported Trazodone Hcl 50 Mg Tablet 0.5 Tab PO QHS 10/25/19 Reported Reglan (Metoclopramide Hcl) 5 Mg Tablet 5 Mg PO DAILY 10/25/19 Reported Protonix (Pantoprazole Sodium) 20 Mg Tablet.dr 1 Tab PO DAILY 10/25/19 Reported [place] 5-325 Tablet (Hydrocodone Bit/Acetaminophen) 1 Each Tablet 1 Tab PO Q4HRS 10/25/19 Reported Naproxen 500 Mg Tablet 1 Tab PO Q8HRS 10/25/19 Reported Lisinopril 2.5 Mg Tablet 1 Tab PO DAILY 10/25/19 Reported Lidocaine PATCH (Lidocaine) 1 Each Adh..patch 1 Each TP DAILY 10/25/19 Reported REMOVE AFTER 12 HOURS Lasix (Furosemide) 20 Mg Tablet 1 Tab PO DAILY 30 10/25/19 Reported Duoneb 0.5-3(2.5) Mg/3 Ml (Albuterol/Ipratropium) 3 Ml Ampul.neb 3 Ml NEB QID 10/25/19 Reported Imodium A-D (Loperamide HCl) 2 Mg Capsule 2 Mg PO DAILY 10/25/19 Reported Guaifenesin 400 Mg Tablet 400 Mg PO Q8HRS 10/25/19 Reported Coreg (Carvedilol) 3.125 Mg Tablet 3.125 Mg PO BID 10/25/19 Reported Clopidogrel (Clopidogrel Bisulfate) 75 Mg Tablet 75 Mg PO DAILY 10/25/19 Reported Citalopram Hbr (Citalopram Hydrobromide) 10 Mg Tablet 10 Mg PO DAILY 10/25/19 Reported Atorvastatin Calcium 10 Mg Tablet 10 Mg PO DAILY 10/25/19 Reported Proair Hfa Inhaler (Albuterol Sulfate) 8.5 Gm Hfa.aer.ad 1 Puff INH PRN Q6HRS 10/25/19 Reported Acetaminophen 500 Mg Tablet 1 Tab PO PRN Q6HRS 10/25/19 Reported Glimepiride 1 Mg Tablet 1 Mg PO DAILY 07/05/14 Reported Simvastatin 40 Mg Tablet 40 Mg PO HS 07/05/14 Reported Omeprazole 20 Mg Capsule.dr 20 Mg PO DAILY 07/05/14 Reported Januvia (Sitagliptin Phosphate) 100 Mg Tablet 100 Mg PO DAILY 07/05/14 Reported Comments Chest x-ray 624 improved Impression . IMPRESSION: 1. Acute respiratory failure, multifactorial in etiology. Extubated 11/04 /developed flash pulmonary edema post extubation from hypertensive urgency Rx with lasix/ bipap, MUCH IMPROVED 2. New-onset seizure. 3. Acute diastolic congestive heart failure, rule out myocardial infarction, le ss likely pneumonia. 4. Abnormal chest x-ray. 5. Electrolyte abnormality. 6. Hypertensive urgency. 7. Diabetes mellitus. 8. COVID-19 Neg 9. Dysphagia Plan . PT OT Continue oxygen per nasal cannula Continue BiPAP as needed Dysphasia evaluation Spoke with speech therapist CRYS BARAHONA MD Nov 08, 2019 09:33
--- NOTE | 2019-11-08 09:56 | PDOC ---
Objective: Objective: D/w cardiology - holding on cath for now - ?Monday Vital Signs: Vital Signs Date Time Temp Pulse Resp B/P (MAP) Pulse Ox O2 Delivery O2 Flow Rate FiO2 11/08/19 07:27 99 BiPAP/CPAP 11/08/19 07:00 98.7 90 20 123/60 (81) 98.7 11/07/19 21:55 15.0 Labs: Laboratory Tests Test 11/07/19 19:49 11/08/19 05:22 11/08/19 07:07 Glucose (Fingerstick) 165 mg/dL 163 mg/dL White Blood Count 13.2 x10^3/uL Red Blood Count 2.31 x10^6/uL Hemoglobin 7.0 g/dL Hematocrit 20.8 % Mean Corpuscular Volume 90 fL Mean Corpuscular Hemoglobin 30 pg Mean Corpuscular Hemoglobin Concent 34 g/dL Red Cell Distribution Width 16.1 % Platelet Count 326 x10^3/uL Neutrophils (%) (Auto) 77 % Lymphocytes (%) (Auto) 10 % Monocytes (%) (Auto) 13 % Eosinophils (%) (Auto) 1 % Basophils (%) (Auto) 0 % Neutrophils # (Auto) 10.1 x10^3/uL Lymphocytes # (Auto) 1.3 x10^3/uL Monocytes # (Auto) 1.7 x10^3/uL Eosinophils # (Auto) 0.1 x10^3/uL Basophils # (Auto) 0.1 x10^3/uL Sodium Level 140 mmol/L Potassium Level 3.1 mmol/L Chloride Level 101 mmol/L Carbon Dioxide Level 32 mmol/L Anion Gap 7 Blood Urea Nitrogen 28 mg/dL Creatinine 1.3 mg/dL Estimated GFR (Cockcroft-Gault) 39.4 Glucose Level 177 mg/dL Calcium Level 8.3 mg/dL Magnesium Level 1.9 mg/dL PE: GEN: NAD LUNGS: room air HEART: mildly tachycardic ABD: soft, non-distended NEURO/PSYCH: resting, did not awaken A/P: Resp failure, CHF, encephalopathy/dementia Normocytic anemia - Hgb drift to 7; ACD/B12 deficient - started replacement 11/05 -- Will order 1 unit pRBCs. Continue B12, change acid-front end alignment specialist to PO. Justicifation of Admission Dx: Justifications for Admission: Justification of Admission Dx: Yes Respiratory Failure: Mechanical Ventilation Altered Mental Status: Altered Mental Status MARKOS PATINO Nov 08, 2019 09:56
--- NOTE | 2019-11-08 10:27 | PDOC ---
PROGRESS NOTES Subjective Subjective none Objective Objective Vital Signs Date Time Temp Pulse Resp B/P (MAP) Pulse Ox O2 Delivery O2 Flow Rate FiO2 11/08/19 07:27 99 BiPAP/CPAP 11/08/19 07:00 98.7 90 20 123/60 (81) 98.7 11/07/19 21:55 15.0 Intake and Output 11/08/19 07:00 Intake Total 660 ml Output Total 1100 ml Balance -440 ml Intake Oral 660 ml Output Urine Total 1100 ml Physical Exam Abdomen: Soft Heart: Regular rate Extremities: No clubbing General: Alert, Other (Intubated and sedated) HEENT: Atraumatic Lungs: Normal air movement, Other (Decreased air entry bases) Neck: Supple Psych/Mental Status: Mood NL Skin: No breakdown Assessment Assessment ASSESSMENT:Cardiac disease for cardiac cath , post poned due to anemia 1. Acute respiratory failure secondary to aspiration pneumonia, for which, intubated and mechanically ventilated. 2. Accelerated hypertension, improved with Cardene drip. She is now on losartan. Her Coreg was on hold given her bradycardia. 3. New onset of tonic-clonic seizures for which she is on Keppra 500 mg IV twice a day. No further episodes of seizures reported. 4. Profound hypokalemia, resolved. Her potassium is 3.6. 5. Troponin was mildly elevated, felt to be secondary to demand ischemia. 6. Acute on chronic systolic function, for which she is on diuretics. PLAN:transfuse 1 u prbc ,Hb 7.0 cath postponed for monday GI on the case speech to see cardiology consult Pt extubated doing well, on oxygen nasa canula EEG done iv antibiotics cxr sukhdev lung infiltrates. wbc 12,other labs ok spoke with staff pot 3.1 . Meanwhile, continue with IV antibiotic in the form of vancomycin and Zosyn. Continue with Keppra for seizure disorder. Continue with DVT prophylaxis, GI prophylaxis. Comment Review of Relevant I have reviewed the following items regina (where applicable) has been applied. Labs Laboratory Tests Test 11/07/19 19:49 11/08/19 05:22 11/08/19 07:07 Glucose (Fingerstick) 165 mg/dL (70-99) 163 mg/dL (70-99) White Blood Count 13.2 x10^3/uL (4.0-11.0) Red Blood Count 2.31 x10^6/uL (3.50-5.40) Hemoglobin 7.0 g/dL (12.0-15.5) Hematocrit 20.8 % (36.0-47.0) Mean Corpuscular Volume 90 fL (79-100) Mean Corpuscular Hemoglobin 30 pg (25-35) Mean Corpuscular Hemoglobin Concent 34 g/dL (31-37) Red Cell Distribution Width 16.1 % (11.5-14.5) Platelet Count 326 x10^3/uL (140-400) Neutrophils (%) (Auto) 77 % (31-73) Lymphocytes (%) (Auto) 10 % (24-48) Monocytes (%) (Auto) 13 % (0-9) Eosinophils (%) (Auto) 1 % (0-3) Basophils (%) (Auto) 0 % (0-3) Neutrophils # (Auto) 10.1 x10^3/uL (1.8-7.7) Lymphocytes # (Auto) 1.3 x10^3/uL (1.0-4.8) Monocytes # (Auto) 1.7 x10^3/uL (0.0-1.1) Eosinophils # (Auto) 0.1 x10^3/uL (0.0-0.7) Basophils # (Auto) 0.1 x10^3/uL (0.0-0.2) Sodium Level 140 mmol/L (136-145) Potassium Level 3.1 mmol/L (3.5-5.1) Chloride Level 101 mmol/L (98-107) Carbon Dioxide Level 32 mmol/L (21-32) Anion Gap 7 (6-14) Blood Urea Nitrogen 28 mg/dL (7-20) Creatinine 1.3 mg/dL (0.6-1.0) Estimated GFR (Cockcroft-Gault) 39.4 Glucose Level 177 mg/dL (70-99) Calcium Level 8.3 mg/dL (8.5-10.1) Magnesium Level 1.9 mg/dL (1.8-2.4) Medications Current Medications Clopidogrel Bisulfate (Plavix) 75 mg DAILY PO Last administered on 11/07/19at 15:35; Start 11/07/19 at 11:00 Cyanocobalamin (Vitamin B-12) 1,000 mcg 1X ONCE IM ; Start 11/08/19 at 08:30; Stop 11/08/19 at 08:31; Status DC Furosemide (Lasix) 40 mg 1X ONCE IVP Last administered on 11/07/19at 21:55; Start 11/07/19 at 21:45; Stop 11/07/19 at 21:46; Status DC Furosemide (Lasix) 40 mg 1X ONCE IVP ; Start 11/08/19 at 09:30; Stop 11/08/19 at 09:33; Status DC Furosemide (Lasix) 40 mg DAILY PO ; Start 11/08/19 at 09:00 Lactobacillus Rhamnosus (Culturelle) 1 cap BID PO Last administered on 11/07/19at 21:05; Start 11/07/19 at 21:00 Levetiracetam (Keppra) 500 mg BID PO Last administered on 11/07/19at 21:05; Start 11/07/19 at 21:00 Metoprolol Succinate (Toprol Xl) 50 mg DAILY PO ; Start 11/08/19 at 09:00 Pantoprazole Sodium (Protonix) 40 mg DAILYAC PO ; Start 11/09/19 at 07:30 Potassium Chloride (Klor-Con) 40 meq 1X ONCE PO ; Start 11/08/19 at 09:30; Stop 11/08/19 at 09:33; Status DC Vitals/I & O Vital Sign - Last 24 Hours 11/07/19 11/07/19 11/07/19 11/07/19 10:59 14:58 19:33 19:40 Temp 98.3 98.6 98.1 98.3 98.6 98.1 Pulse 99 104 102 Resp 20 20 19 B/P (MAP) 146/71 (96) 154/79 (104) 151/78 (102) Pulse Ox 93 92 94 O2 Delivery Venturi Mask Nasal Cannula Nasal Cannula Nasal Cannula O2 Flow Rate 15.0 5.0 5.0 5.0 11/07/19 11/07/19 11/07/19 11/07/19 20:17 21:55 22:14 23:08 Temp 98.0 98.0 Pulse 111 105 B/P (MAP) 137/61 (86) 137/61 (86) Pulse Ox 88 88 97 99 O2 Delivery Nasal Cannula Venturi Mask BiPAP/CPAP BiPAP/CPAP O2 Flow Rate 15.0 15.0 11/07/19 11/08/19 11/08/19 11/08/19 23:45 01:34 02:33 04:25 Temp 97.6 97.6 Pulse 102 Resp 20 B/P (MAP) 142/71 (94) Pulse Ox 97 100 100 100 O2 Delivery BiPAP/CPAP BiPAP/CPAP BiPAP/CPAP BiPAP/CPAP 11/08/19 11/08/19 07:00 07:27 Temp 98.7 98.7 Pulse 90 Resp 20 B/P (MAP) 123/60 (81) Pulse Ox 100 99 O2 Delivery BiPAP/CPAP BiPAP/CPAP Intake and Output 11/07/19 11/07/19 11/08/19 15:00 23:00 07:00 Intake Total 400 ml 240 ml 20 ml Output Total 450 ml 650 ml Balance 400 ml -210 ml -630 ml Justicifation of Admission Dx: Justifications for Admission: Justification of Admission Dx: Yes Respiratory Failure: Mechanical Ventilation Altered Mental Status: Altered Mental Status Nutrition Consultation Dietary Evaluation: Recommendations by RD: Dietary education by RD Comments: REC continue with dysphagia I diet, thin liquids Expected Outcomes/Goals: to meet >75% of nutrition needs through PO intake Malnutrition Findings: Body Fat Depletion (Non Severe: Mild Depletion Weight Status: Overweight RAYRAY MA MD Nov 08, 2019 10:27
[2019-11-08] MEDS: SERTRALINE 50 MG TABLET. PO SCH (11:05)
[2019-11-08] MEDS: LOSARTAN POTASSIUM 50 MG TABLET. NG SCH (11:05)
[2019-11-08] MEDS: LACTOBACILLUS RHAMNOSUS GG 1 CAPSULE. PO SCH ×2 (11:05→20:51)
[2019-11-08] MEDS: CETIRIZINE HCL 10 MG TABLET. PO SCH (11:06)
[2019-11-08] MEDS: METOPROLOL SUCC 24HR ER 50 MG TAB.ER.24H. PO SCH (11:06)
[2019-11-08] MEDS: FUROSEMIDE 40 MG/4 ML VIAL. IVP ONE ×2 (11:07→17:56)
[2019-11-08] MEDS: CLOPIDOGREL BISULFATE 75 MG TABLET PO SCH (11:07)
[2019-11-08] MEDS: levETIRAcetam 500 MG TABLET PO SCH ×2 (11:07→20:51)
[2019-11-08] MEDS: CYANOCOBALAMIN (VITAMIN B-12) 1,000 MCG/ML VIAL IM SCH (11:08)
[2019-11-08] MEDS: VANCOMYCIN 1 GM in IV NORMAL SALINE 250ML 250 ML IV SCH (11:13)
[2019-11-08] MEDS: LATANOPROST 0.005% OPHTH SOLUTION 2.5ML BOTTLE. OU SCH (20:51)
[2019-11-08] MEDS: ATORVASTATIN CALCIUM 10 MG TABLET. PO SCH (20:51)
[2019-11-09 03:33] VITALS: BP 167/79
[2019-11-09] MEDS: VANCOMYCIN 1 GM in IV NORMAL SALINE 250ML 250 ML IV SCH ×2 (04:51→22:49)
[2019-11-09 05:22] LABS: BASO # 0.1 x10^3/uL (0.0-0.2); BASO % 1 % (0-3); EOS # 0.1 x10^3/uL (0.0-0.7); EOS % 1 % (0-3); HEMATOCRIT 23.6 % (36.0-47.0); LYMPH # 1.1 x10^3/uL (1.0-4.8); LYMPH % 11 % (24-48); MEAN CORPUSCULAR HEMOGLOBIN 31 pg (25-35); MEAN CORPUSCULAR HGB CONC 34 g/dL (31-37); MEAN CORPUSCULAR VOLUME 90 fL (79-100); MONO # 1.5 x10^3/uL (0.0-1.1); MONO % 14 % (0-9); NEUT # 7.8 x10^3/uL (1.8-7.7); NEUT % 74 % (31-73); PLATELET COUNT 312 x10^3/uL (140-400); RED BLOOD COUNT 2.62 x10^6/uL (3.50-5.40); RED CELL DISTRIBUTION WIDTH 16.3 % (11.5-14.5); WHITE BLOOD COUNT 10.6 x10^3/uL (4.0-11.0)
[2019-11-09 05:46] LABS: CALCIUM 8.5 mg/dL (8.5-10.1); CREATININE 1.2 mg/dL (0.6-1.0); GFR 43.2; POTASSIUM 4.1 mmol/L (3.5-5.1)
[2019-11-09] MEDS: PIPERACILLIN/TAZOBACTAM 3.375 GM in IV NORMAL SALINE 50ML 50 ML IV SCH ×4 (06:24→23:58)
[2019-11-09] MEDS: VANCOMYCIN PER PHARMACY MC PRN (07:24)
[2019-11-09 07:59] VITALS: BP 162/99
[2019-11-09] MEDS: LACTOBACILLUS RHAMNOSUS GG 1 CAPSULE. PO SCH ×2 (08:24→21:20)
[2019-11-09] MEDS: PANTOPRAZOLE 40 MG TABLET.DR. PO SCH (08:24)
[2019-11-09] MEDS: levETIRAcetam 500 MG TABLET PO SCH ×2 (08:24→21:20)
[2019-11-09] MEDS: CYANOCOBALAMIN (VITAMIN B-12) 1,000 MCG/ML VIAL IM SCH (08:24)
[2019-11-09] MEDS: METOPROLOL SUCC 24HR ER 50 MG TAB.ER.24H. PO SCH (08:25)
[2019-11-09] MEDS: FUROSEMIDE 40 MG TABLET. PO SCH (08:25)
[2019-11-09] MEDS: SERTRALINE 50 MG TABLET. PO SCH (08:25)
[2019-11-09] MEDS: CLOPIDOGREL BISULFATE 75 MG TABLET PO SCH (08:25)
[2019-11-09] MEDS: CETIRIZINE HCL 10 MG TABLET. PO SCH (08:25)
--- NOTE | 2019-11-09 10:24 | PDOC ---
PULMONARY PROGRESS NOTES Subjective Extubated 11/04 Patient currently on BiPAP 18/8 50% FiO2 resting comfortable, nursing denies any overnight concerns Vitals Vital Signs Date Time Temp Pulse Resp B/P (MAP) Pulse Ox O2 Delivery O2 Flow Rate FiO2 11/09/19 08:25 86 162/99 11/09/19 08:12 96 BiPAP/CPAP 11/09/19 07:59 97.9 20 97.9 11/09/19 04:15 3.0 ROS: No Nausea, No Chest Pain, No Abdominal Pain, No Increase Cough General: Alert Lungs: Clear Cardiovascular: S1 Abdomen: Soft Neuro Exam: Alert Extremities: No Edema Skin: Warm Labs Laboratory Tests Test 11/07/19 19:49 11/08/19 05:22 11/08/19 07:07 11/08/19 11:18 Glucose (Fingerstick) 165 mg/dL (70-99) 163 mg/dL (70-99) 180 mg/dL (70-99) White Blood Count 13.2 x10^3/uL (4.0-11.0) Red Blood Count 2.31 x10^6/uL (3.50-5.40) Hemoglobin 7.0 g/dL (12.0-15.5) Hematocrit 20.8 % (36.0-47.0) Mean Corpuscular Volume 90 fL (79-100) Mean Corpuscular Hemoglobin 30 pg (25-35) Mean Corpuscular Hemoglobin Concent 34 g/dL (31-37) Red Cell Distribution Width 16.1 % (11.5-14.5) Platelet Count 326 x10^3/uL (140-400) Neutrophils (%) (Auto) 77 % (31-73) Lymphocytes (%) (Auto) 10 % (24-48) Monocytes (%) (Auto) 13 % (0-9) Eosinophils (%) (Auto) 1 % (0-3) Basophils (%) (Auto) 0 % (0-3) Neutrophils # (Auto) 10.1 x10^3/uL (1.8-7.7) Lymphocytes # (Auto) 1.3 x10^3/uL (1.0-4.8) Monocytes # (Auto) 1.7 x10^3/uL (0.0-1.1) Eosinophils # (Auto) 0.1 x10^3/uL (0.0-0.7) Basophils # (Auto) 0.1 x10^3/uL (0.0-0.2) Sodium Level 140 mmol/L (136-145) Potassium Level 3.1 mmol/L (3.5-5.1) Chloride Level 101 mmol/L (98-107) Carbon Dioxide Level 32 mmol/L (21-32) Anion Gap 7 (6-14) Blood Urea Nitrogen 28 mg/dL (7-20) Creatinine 1.3 mg/dL (0.6-1.0) Estimated GFR (Cockcroft-Gault) 39.4 Glucose Level 177 mg/dL (70-99) Calcium Level 8.3 mg/dL (8.5-10.1) Magnesium Level 1.9 mg/dL (1.8-2.4) Test 11/08/19 16:36 11/08/19 20:00 11/09/19 04:45 11/09/19 07:29 Glucose (Fingerstick) 171 mg/dL (70-99) 146 mg/dL (70-99) Hemoglobin 8.7 g/dL (12.0-15.5) 8.0 g/dL (12.0-15.5) Potassium Level 3.7 mmol/L (3.5-5.1) 4.1 mmol/L (3.5-5.1) White Blood Count 10.6 x10^3/uL (4.0-11.0) Red Blood Count 2.62 x10^6/uL (3.50-5.40) Hematocrit 23.6 % (36.0-47.0) Mean Corpuscular Volume 90 fL (79-100) Mean Corpuscular Hemoglobin 31 pg (25-35) Mean Corpuscular Hemoglobin Concent 34 g/dL (31-37) Red Cell Distribution Width 16.3 % (11.5-14.5) Platelet Count 312 x10^3/uL (140-400) Neutrophils (%) (Auto) 74 % (31-73) Lymphocytes (%) (Auto) 11 % (24-48) Monocytes (%) (Auto) 14 % (0-9) Eosinophils (%) (Auto) 1 % (0-3) Basophils (%) (Auto) 1 % (0-3) Neutrophils # (Auto) 7.8 x10^3/uL (1.8-7.7) Lymphocytes # (Auto) 1.1 x10^3/uL (1.0-4.8) Monocytes # (Auto) 1.5 x10^3/uL (0.0-1.1) Eosinophils # (Auto) 0.1 x10^3/uL (0.0-0.7) Basophils # (Auto) 0.1 x10^3/uL (0.0-0.2) Sodium Level 136 mmol/L (136-145) Chloride Level 99 mmol/L (98-107) Carbon Dioxide Level 29 mmol/L (21-32) Anion Gap 8 (6-14) Blood Urea Nitrogen 28 mg/dL (7-20) Creatinine 1.2 mg/dL (0.6-1.0) Estimated GFR (Cockcroft-Gault) 43.2 Glucose Level 165 mg/dL (70-99) Calcium Level 8.5 mg/dL (8.5-10.1) Laboratory Tests Test 11/08/19 11:18 11/08/19 16:36 11/08/19 20:00 11/09/19 04:45 Glucose (Fingerstick) 180 mg/dL (70-99) 171 mg/dL (70-99) Hemoglobin 8.7 g/dL (12.0-15.5) 8.0 g/dL (12.0-15.5) Potassium Level 3.7 mmol/L (3.5-5.1) 4.1 mmol/L (3.5-5.1) White Blood Count 10.6 x10^3/uL (4.0-11.0) Red Blood Count 2.62 x10^6/uL (3.50-5.40) Hematocrit 23.6 % (36.0-47.0) Mean Corpuscular Volume 90 fL (79-100) Mean Corpuscular Hemoglobin 31 pg (25-35) Mean Corpuscular Hemoglobin Concent 34 g/dL (31-37) Red Cell Distribution Width 16.3 % (11.5-14.5) Platelet Count 312 x10^3/uL (140-400) Neutrophils (%) (Auto) 74 % (31-73) Lymphocytes (%) (Auto) 11 % (24-48) Monocytes (%) (Auto) 14 % (0-9) Eosinophils (%) (Auto) 1 % (0-3) Basophils (%) (Auto) 1 % (0-3) Neutrophils # (Auto) 7.8 x10^3/uL (1.8-7.7) Lymphocytes # (Auto) 1.1 x10^3/uL (1.0-4.8) Monocytes # (Auto) 1.5 x10^3/uL (0.0-1.1) Eosinophils # (Auto) 0.1 x10^3/uL (0.0-0.7) Basophils # (Auto) 0.1 x10^3/uL (0.0-0.2) Sodium Level 136 mmol/L (136-145) Chloride Level 99 mmol/L (98-107) Carbon Dioxide Level 29 mmol/L (21-32) Anion Gap 8 (6-14) Blood Urea Nitrogen 28 mg/dL (7-20) Creatinine 1.2 mg/dL (0.6-1.0) Estimated GFR (Cockcroft-Gault) 43.2 Glucose Level 165 mg/dL (70-99) Calcium Level 8.5 mg/dL (8.5-10.1) Test 11/09/19 07:29 Glucose (Fingerstick) 146 mg/dL (70-99) Medications Active Scripts Medications Dose Route/Sig Max Daily Dose Days Date Category Dose Instructions Januvia (Sitagliptin Phosphate) 100 Mg Tablet 1 Tab PO DAILY 11/02/19 Reported Pantoprazole Sodium (Pantoprazole Sodium) 40 Mg Tablet.dr 20 Mg PO DAILYAC 11/02/19 Reported Glimepiride 1 Mg Tablet 1 Tab PO DAILY 11/02/19 Reported Hydrocodone-Apap 5-325 (Hydrocodone Bit/Acetaminophen) 1 Tab Tablet 1 Tab PO PRN Q6HRS PRN 11/02/19 Reported Lisinopril 10 Mg Tablet 1 Tab PO DAILY 11/02/19 Reported Acetaminophen 500 Mg Tablet 1 Tab PO BID 11/30/18 Reported Trazodone Hcl 50 Mg Tablet 0.5 Tab PO QHS 11/30/18 Reported Omeprazole 20 Mg Capsule.dr 1 Cap PO DAILY 11/30/18 Reported Novolog (Insulin Aspart) 100 Unit/1 Ml Cartridge 100 Unit SQ QIDACHS 11/30/18 Reported Naproxen 500 Mg Tablet 1 Tab PO PRN Q8HRS PRN 11/30/18 Reported Lidocaine PATCH (Lidocaine) 1 Each Adh..patch 1 Each TP DAILY 11/30/18 Reported REMOVE AFTER 12 HOURS Latanoprost 2.5 Ml Drops 1 Drop EACHEYE QHS 11/30/18 Reported Duoneb 0.5-3(2.5) Mg/3 Ml (Albuterol/Ipratropium) 3 Ml Ampul.neb 3 Ml NEB PRN Q4HRS PRN 11/30/18 Reported Imodium A-D (Loperamide HCl) 2 Mg Capsule 2 Mg PO PRN PRN 11/30/18 Reported Flonase Allergy Relief (Fluticasone Propionate) 9.9 Ml [place].susp 1 Sprays NS PRN Q12HRS PRN 11/30/18 Reported Coreg (Carvedilol) 3.125 Mg Tablet 3.125 Mg PO BIDWMEALS 11/30/18 Reported Chloraseptic (Phenol) 20 Ml [place] 1 [place] MM PRN Q6HRS PRN 11/30/18 Reported Calcium Citrate 250 Mg Tablet 500 Mg PO DAILY 11/30/18 Reported Tylenol (Acetaminophen) 325 Mg Tablet 2 Tab PO PRN Q6HRS PRN 11/30/18 Reported Atorvastatin Calcium 10 Mg Tablet 1 Tab PO QHS 11/30/18 Reported Proair Respiclick (Albuterol Sulfate) 90 Mcg Aer.pow.ba 1 Puff IH PRN Q6HRS PRN 01/18/17 Reported Alendronate Sodium 70 Mg Tablet 1 Tab PO WEEKLY 01/18/17 Reported Citalopram Hbr (Citalopram Hydrobromide) 10 Mg Tablet 1.5 Tab PO DAILY 01/18/17 Reported Cetirizine Hcl 10 Mg Tablet 1 Tab PO DAILY 01/18/17 Reported Guaifenesin 600 Mg Tablet.er 600 Mg PO PRN Q8HRS PRN 01/18/17 Reported Clopidogrel (Clopidogrel Bisulfate) 75 Mg Tablet 1 Tab PO DAILY 01/18/17 Reported Novolog Flexpen (Insulin Aspart) 100 Unit/1 Ml Insuln.pen 0-3 Unit SQ QIDACHS 10/25/19 Reported PATIENT SLIDING SCALE. 70-249= 0 UNITS. 250-400= 3UNITS. BEFORE MEALS AND AT BEDTIME GIVE 3 UNITS IF BLOOD SUGAR 250 OR ABOVE. Diclofenac Sodium 100 Gm Gel..gram. 1 Carlos TP DAILY 10/25/19 Reported D3-50 (Cholecalciferol (Vitamin D3)) 50,000 Unit Capsule 50,000 Unit PO DAILY 10/25/19 Reported Trazodone Hcl 50 Mg Tablet 0.5 Tab PO QHS 10/25/19 Reported Reglan (Metoclopramide Hcl) 5 Mg Tablet 5 Mg PO DAILY 10/25/19 Reported Protonix (Pantoprazole Sodium) 20 Mg Tablet.dr 1 Tab PO DAILY 10/25/19 Reported [place]oshone 5-325 Tablet (Hydrocodone Bit/Acetaminophen) 1 Each Tablet 1 Tab PO Q4HRS 10/25/19 Reported Naproxen 500 Mg Tablet 1 Tab PO Q8HRS 10/25/19 Reported Lisinopril 2.5 Mg Tablet 1 Tab PO DAILY 10/25/19 Reported Lidocaine PATCH (Lidocaine) 1 Each Adh..patch 1 Each TP DAILY 10/25/19 Reported REMOVE AFTER 12 HOURS Lasix (Furosemide) 20 Mg Tablet 1 Tab PO DAILY 30 10/25/19 Reported Duoneb 0.5-3(2.5) Mg/3 Ml (Albuterol/Ipratropium) 3 Ml Ampul.neb 3 Ml NEB QID 10/25/19 Reported Imodium A-D (Loperamide HCl) 2 Mg Capsule 2 Mg PO DAILY 10/25/19 Reported Guaifenesin 400 Mg Tablet 400 Mg PO Q8HRS 10/25/19 Reported Coreg (Carvedilol) 3.125 Mg Tablet 3.125 Mg PO BID 10/25/19 Reported Clopidogrel (Clopidogrel Bisulfate) 75 Mg Tablet 75 Mg PO DAILY 10/25/19 Reported Citalopram Hbr (Citalopram Hydrobromide) 10 Mg Tablet 10 Mg PO DAILY 10/25/19 Reported Atorvastatin Calcium 10 Mg Tablet 10 Mg PO DAILY 10/25/19 Reported Proair Hfa Inhaler (Albuterol Sulfate) 8.5 Gm Hfa.aer.ad 1 Puff INH PRN Q6HRS 10/25/19 Reported Acetaminophen 500 Mg Tablet 1 Tab PO PRN Q6HRS 10/25/19 Reported Glimepiride 1 Mg Tablet 1 Mg PO DAILY 07/05/14 Reported Simvastatin 40 Mg Tablet 40 Mg PO HS 07/05/14 Reported Omeprazole 20 Mg Capsule.dr 20 Mg PO DAILY 07/05/14 Reported Januvia (Sitagliptin Phosphate) 100 Mg Tablet 100 Mg PO DAILY 07/05/14 Reported Comments Chest x-ray 624 improved Impression . IMPRESSION: 1. Acute respiratory failure, multifactorial in etiology. Extubated 11/04 /developed flash pulmonary edema post extubation from hypertensive urgency Rx with lasix/ bipap, --- improving 2. New-onset seizure. 3. Acute diastolic congestive heart failure, rule out myocardial infarction, less likely pneumonia. 4. Abnormal chest x-ray. 5. Electrolyte abnormality. 6. Hypertensive urgency. 7. Diabetes mellitus. 8. COVID-19 Neg 9. Dysphagia Plan . Continue BIPAP PRN and at HS Continue PPN -- sppech following Follow cardiology recs -- holding off on cath at this time Follow GI recs Cont. ABX PT/OT -- OOB as tolerated D/W CRYS CHUA MD Nov 09, 2019 10:24
--- NOTE | 2019-11-09 11:00 | PN ---
DATE: 11/09/2019 SUBJECTIVE: The patient is resting, slightly propped up in bed, sleeping comfortably on BiPAP machine, maintaining her oxygen saturation at 95% on FiO2 of 40%. Nursing staff stated that the patient desaturates quickly when to the BiPAP machine, continue to have extremely poor appetite. She is not eating or drinking. She continued to be on PPN. PHYSICAL EXAMINATION: GENERAL: When I examined her this morning, she was pale, no jaundice or cyanosis. No lymphadenopathy, no thyromegaly. No jugular venous distention. No limb edema. VITAL SIGNS: Her heart rate was 86, blood pressure was 162/99, temperature was 97.9, respiratory rate was 20, and oxygen saturation was 95% on FiO2 of 40% on BiPAP machine. HEAD, EYES, EARS, NOSE AND THROAT: Showed normocephalic, atraumatic. NECK: Supple. CARDIAC: Normal first and second heart sounds. No gallop or murmur. CHEST: Central trachea, equal bilateral chest expansion, air entry, vesicular sounds. I could not really appreciate any crepitation or rhonchi. ABDOMEN: Distended, soft, nontender. No guarding or rigidity. No organomegaly. All hernial orifice intact. Bowel sounds normal. NEUROLOGIC: She is sleepy, but arousable. All her cranial nerves intact. She moves extremities without difficulty. Her intake over the last 24 hours was 660, output was 1100. LABORATORY DATA: As of this morning, her serum sodium was 136, potassium 4.1, chloride 99, bicarbonate 29, anion gap of 8, BUN 28, creatinine 1.2, estimated GFR was 43 mL per minute. Her glucose 165, calcium was 8.5. Her white cell count was 10,600, hemoglobin 8, hematocrit 23, MCV 90 and platelet count of 312,000. Her tox screen showed vancomycin trough level was 17. Her prothrombin time and INR are normal and her COVID-19 by PCR was not detectable. Her blood cultures showed no growth after 5 days. ASSESSMENT: 1. Acute respiratory failure secondary to aspiration pneumonia for which she was intubated, mechanically ventilated; however, she was successfully extubated on 11/05/2019. 2. Flash pulmonary edema due to accelerated hypertension post-extubation, improved. 3. Accelerated hypertension for which she was on Cardene drip. She is now on metoprolol succinate 50 mg once a day. 4. New onset of tonic-clonic seizure for which she is on Keppra 500 mg IV twice a day. No further episode of seizures documented. 5. Hypokalemia, resolved. 6. Mildly elevated troponin, likely due to demand ischemia. 7. Acute on chronic systolic congestive heart failure. His left ventricular systolic function is severely impaired, ejection fraction only 25%. Transmitral Doppler flow pattern is grade 2 pseudonormal filling dynamics. 8. Anemia without any obvious sign. 9. Her MRI showed signal abnormality within the posterior temporoparietal and occipital subcortical white matter, may represent posterior reversible encephalopathy syndrome. PLAN: To continue with nutritional support in the form of PPN, continue with BiPAP machine and wean as tolerated. Continue with Keppra for her seizure disorder. Continue with furosemide for her acute on chronic systolic congestive heart failure. Continue with IV antibiotic in the form of Zosyn and vancomycin. I would consult the pillowcase turner to see whether she qualifies to be transferred to [facility]. FINESSE GEORGES MD DR: IRISH/shubham JOB#: [id number] / [id number]
--- NOTE | 2019-11-09 11:24 | PDOC ---
PROGRESS NOTES Subjective Subjective Patient seen and examined Objective Objective Vital Signs Date Time Temp Pulse Resp B/P (MAP) Pulse Ox O2 Delivery O2 Flow Rate FiO2 11/09/19 11:04 97 BiPAP/CPAP 11/09/19 08:25 86 162/99 11/09/19 07:59 97.9 20 97.9 11/09/19 04:15 3.0 Intake and Output 11/09/19 07:00 Intake Total 500 ml Output Total 1675 ml Balance -1175 ml Intake Oral 500 ml Output Urine Total 1675 ml # Bowel Movements 1 Physical Exam Abdomen: Normal bowel sounds Heart: Regular rate General: mild distress Lungs: Other (On BiPAP. Decreased breath sounds) Assessment Assessment Accelerated hypertension: controlled New onset seizure disorder with encephalopathy: on keppra per neurology. Acute respiratory failure, multifactorial: s/p intubation, treat per pulmonary team. COVID test negative . On BiPAP this morning Acute on chronic diastolic/systolic heart failure: appears better. Decreased ejection fraction at 25%. Heart catheterization postponed due to further drop in hemoglobin hematocrit requiring transfusions. We will continue to monitor. Pre treat for reported iodine allergy. H&H improved to 8.0 and 23.6. Mild troponin elevation: multifactorial Paroxysmal Torsades: none further after BB initiation Hx of LE PAD: on plavix with past stenting in 2017 Cardiomyopathy: EF at 25% New Moderate to severe TR Severe Pulmonary HTN: PAP 83 mmhg New Comment Review of Relevant I have reviewed the following items regina (where applicable) has been applied. Labs Laboratory Tests Test 11/07/19 19:49 11/08/19 05:22 11/08/19 07:07 11/08/19 11:18 Glucose (Fingerstick) 165 mg/dL (70-99) 163 mg/dL (70-99) 180 mg/dL (70-99) White Blood Count 13.2 x10^3/uL (4.0-11.0) Red Blood Count 2.31 x10^6/uL (3.50-5.40) Hemoglobin 7.0 g/dL (12.0-15.5) Hematocrit 20.8 % (36.0-47.0) Mean Corpuscular Volume 90 fL (79-100) Mean Corpuscular Hemoglobin 30 pg (25-35) Mean Corpuscular Hemoglobin Concent 34 g/dL (31-37) Red Cell Distribution Width 16.1 % (11.5-14.5) Platelet Count 326 x10^3/uL (140-400) Neutrophils (%) (Auto) 77 % (31-73) Lymphocytes (%) (Auto) 10 % (24-48) Monocytes (%) (Auto) 13 % (0-9) Eosinophils (%) (Auto) 1 % (0-3) Basophils (%) (Auto) 0 % (0-3) Neutrophils # (Auto) 10.1 x10^3/uL (1.8-7.7) Lymphocytes # (Auto) 1.3 x10^3/uL (1.0-4.8) Monocytes # (Auto) 1.7 x10^3/uL (0.0-1.1) Eosinophils # (Auto) 0.1 x10^3/uL (0.0-0.7) Basophils # (Auto) 0.1 x10^3/uL (0.0-0.2) Sodium Level 140 mmol/L (136-145) Potassium Level 3.1 mmol/L (3.5-5.1) Chloride Level 101 mmol/L (98-107) Carbon Dioxide Level 32 mmol/L (21-32) Anion Gap 7 (6-14) Blood Urea Nitrogen 28 mg/dL (7-20) Creatinine 1.3 mg/dL (0.6-1.0) Estimated GFR (Cockcroft-Gault) 39.4 Glucose Level 177 mg/dL (70-99) Calcium Level 8.3 mg/dL (8.5-10.1) Magnesium Level 1.9 mg/dL (1.8-2.4) Test 11/08/19 16:36 11/08/19 20:00 11/09/19 04:45 11/09/19 07:29 Glucose (Fingerstick) 171 mg/dL (70-99) 146 mg/dL (70-99) Hemoglobin 8.7 g/dL (12.0-15.5) 8.0 g/dL (12.0-15.5) Potassium Level 3.7 mmol/L (3.5-5.1) 4.1 mmol/L (3.5-5.1) White Blood Count 10.6 x10^3/uL (4.0-11.0) Red Blood Count 2.62 x10^6/uL (3.50-5.40) Hematocrit 23.6 % (36.0-47.0) Mean Corpuscular Volume 90 fL (79-100) Mean Corpuscular Hemoglobin 31 pg (25-35) Mean Corpuscular Hemoglobin Concent 34 g/dL (31-37) Red Cell Distribution Width 16.3 % (11.5-14.5) Platelet Count 312 x10^3/uL (140-400) Neutrophils (%) (Auto) 74 % (31-73) Lymphocytes (%) (Auto) 11 % (24-48) Monocytes (%) (Auto) 14 % (0-9) Eosinophils (%) (Auto) 1 % (0-3) Basophils (%) (Auto) 1 % (0-3) Neutrophils # (Auto) 7.8 x10^3/uL (1.8-7.7) Lymphocytes # (Auto) 1.1 x10^3/uL (1.0-4.8) Monocytes # (Auto) 1.5 x10^3/uL (0.0-1.1) Eosinophils # (Auto) 0.1 x10^3/uL (0.0-0.7) Basophils # (Auto) 0.1 x10^3/uL (0.0-0.2) Sodium Level 136 mmol/L (136-145) Chloride Level 99 mmol/L (98-107) Carbon Dioxide Level 29 mmol/L (21-32) Anion Gap 8 (6-14) Blood Urea Nitrogen 28 mg/dL (7-20) Creatinine 1.2 mg/dL (0.6-1.0) Estimated GFR (Cockcroft-Gault) 43.2 Glucose Level 165 mg/dL (70-99) Calcium Level 8.5 mg/dL (8.5-10.1) Test 11/09/19 11:16 Glucose (Fingerstick) 172 mg/dL (70-99) Laboratory Tests Test 11/08/19 16:36 11/08/19 20:00 11/09/19 04:45 11/09/19 07:29 Glucose (Fingerstick) 171 mg/dL (70-99) 146 mg/dL (70-99) Hemoglobin 8.7 g/dL (12.0-15.5) 8.0 g/dL (12.0-15.5) Potassium Level 3.7 mmol/L (3.5-5.1) 4.1 mmol/L (3.5-5.1) White Blood Count 10.6 x10^3/uL (4.0-11.0) Red Blood Count 2.62 x10^6/uL (3.50-5.40) Hematocrit 23.6 % (36.0-47.0) Mean Corpuscular Volume 90 fL (79-100) Mean Corpuscular Hemoglobin 31 pg (25-35) Mean Corpuscular Hemoglobin Concent 34 g/dL (31-37) Red Cell Distribution Width 16.3 % (11.5-14.5) Platelet Count 312 x10^3/uL (140-400) Neutrophils (%) (Auto) 74 % (31-73) Lymphocytes (%) (Auto) 11 % (24-48) Monocytes (%) (Auto) 14 % (0-9) Eosinophils (%) (Auto) 1 % (0-3) Basophils (%) (Auto) 1 % (0-3) Neutrophils # (Auto) 7.8 x10^3/uL (1.8-7.7) Lymphocytes # (Auto) 1.1 x10^3/uL (1.0-4.8) Monocytes # (Auto) 1.5 x10^3/uL (0.0-1.1) Eosinophils # (Auto) 0.1 x10^3/uL (0.0-0.7) Basophils # (Auto) 0.1 x10^3/uL (0.0-0.2) Sodium Level 136 mmol/L (136-145) Chloride Level 99 mmol/L (98-107) Carbon Dioxide Level 29 mmol/L (21-32) Anion Gap 8 (6-14) Blood Urea Nitrogen 28 mg/dL (7-20) Creatinine 1.2 mg/dL (0.6-1.0) Estimated GFR (Cockcroft-Gault) 43.2 Glucose Level 165 mg/dL (70-99) Calcium Level 8.5 mg/dL (8.5-10.1) Test 11/09/19 11:16 Glucose (Fingerstick) 172 mg/dL (70-99) Medications Current Medications Fentanyl Citrate 30 ml @ 0 mls/hr CONT PRN IV SEE PROTOCOL; Start 11/02/19 at 02:45; Status Cancel Propofol 100 ml @ 0 mls/hr CONT PRN IV SEE PROTOCOL; Start 11/02/19 at 02:45; Status Cancel Fentanyl Citrate (Fentanyl 2ml Vial) 25 mcg PRN Q1HR PRN IV SEE COMMENTS; Start 11/02/19 at 02:45; Status Cancel Fentanyl Citrate (Fentanyl 2ml Vial) 50 mcg PRN Q1HR PRN IV SEE COMMENTS; Start 11/02/19 at 02:45; Status Cancel Chlorhexidine Gluconate (Peridex) 15 ml BID MM ; Start 11/02/19 at 09:00; Status Cancel Morphine Sulfate (Morphine Sulfate) 2 mg PRN Q1HR PRN IV SEE COMMENTS.; Start 11/02/19 at 02:45; Status Cancel Morphine Sulfate (Morphine Sulfate) 4 mg PRN Q1HR PRN IV SEE COMMENTS.; Start 11/02/19 at 02:45; Status Cancel Midazolam HCl 100 ml @ 0 mls/hr CONT PRN IV SEE PROTOCOL; Start 11/02/19 at 02:45; Status Cancel Diphenhydramine HCl (Benadryl) 25 mg PRN Q15MIN PRN IVP EPS Symptoms; Start 11/02/19 at 02:45; Status Cancel Nicardipine HCl 50 mg/Sodium Chloride 250 ml @ 25 mls/hr CONT PRN IV SEE I/O RECORD Last administered on 11/02/19at 16:45; Start 11/02/19 at 03:15 Propofol 100 ml @ As Directed STK-MED ONCE IV ; Start 11/02/19 at 02:49; Stop 11/02/19 at 03:22; Status DC Propofol 100 ml @ 0 mls/hr CONT PRN IV SEE PROTOCOL Last administered on 11/03/19at 11:18; Start 11/02/19 at 03:30; Stop 11/03/19 at 13:54; Status DC Fentanyl Citrate (Fentanyl 2ml Vial) 25 mcg PRN Q1HR PRN IV SEE COMMENTS; Start 11/02/19 at 03:30; Stop 11/06/19 at 10:08; Status DC Fentanyl Citrate (Fentanyl 2ml Vial) 50 mcg PRN Q1HR PRN IV SEE COMMENTS; Start 11/02/19 at 03:30; Stop 11/06/19 at 10:08; Status DC Chlorhexidine Gluconate (Peridex) 15 ml BID MM Last administered on 11/05/19at 08:54; Start 11/02/19 at 09:00; Stop 11/06/19 at 10:08; Status DC Famotidine (Pepcid Vial) 20 mg DAILY IVP Last administered on 11/07/19at 08:39; Start 11/02/19 at 09:00; Stop 11/08/19 at 09:56; Status DC Morphine Sulfate (Morphine Sulfate) 2 mg PRN Q1HR PRN IV SEE COMMENTS. Last administered on 11/04/19at 17:55; Start 11/02/19 at 03:30 Morphine Sulfate (Morphine Sulfate) 4 mg PRN Q1HR PRN IV SEE COMMENTS. Last administered on 11/07/19at 05:18; Start 11/02/19 at 03:30 Potassium Bicarbonate (Potassium Effervescent Tablet) 40 meq 1X ONCE PEG Last administered on 11/02/19at 08:38; Start 11/02/19 at 07:30; Stop 11/02/19 at 07:31; Status DC Potassium Bicarbonate (Potassium Effervescent Tablet) 40 meq 1X ONCE PEG Last administered on 11/02/19at 10:02; Start 11/02/19 at 08:00; Stop 11/02/19 at 08:01; Status DC Potassium Bicarbonate (Potassium Effervescent Tablet) 40 meq 1X ONCE PEG Last administered on 11/02/19at 10:41; Start 11/02/19 at 09:00; Stop 11/02/19 at 09:01; Status DC Magnesium Sulfate 50 ml @ 25 mls/hr 1X ONCE IV Last administered on 11/02/19at 08:37; Start 11/02/19 at 07:30; Stop 11/02/19 at 09:29; Status DC Famotidine (Pepcid Vial) 20 mg DAILY IVP ; Start 11/02/19 at 09:00; Status UNV Ceftriaxone Sodium (Rocephin) 1 gm Q24H IVP Last administered on 11/04/19at 08:46; Start 11/02/19 at 09:00; Stop 11/04/19 at 15:04; Status DC Levetiracetam 1000 mg/Dextrose 110 ml @ 440 mls/hr Q12HR IV Last administered on 11/03/19 09:13; Start 11/02/19 at 11:00; Stop 11/03/19 at 09:32; Status DC Acetaminophen (Tylenol) 650 mg PRN Q6HRS PRN PO PAIN; Start 11/02/19 at 10:15 Atorvastatin Calcium (Lipitor) 10 mg QHS PO Last administered on 11/08/19at 20:51; Start 11/02/19 at 21:00 Carvedilol (Coreg) 3.125 mg BIDWMEALS PO Last administered on 11/03/19at 08:02; Start 11/02/19 at 11:00; Stop 11/07/19 at 12:02; Status DC Cetirizine HCl (ZyrTEC) 10 mg DAILY PO Last administered on 11/09/19at 08:25; Start 11/02/19 at 11:00 Citalopram Hydrobromide (CeleXA) 15 mg DAILY PO Last administered on 11/03/19at 09:14; Start 11/02/19 at 11:00; Stop 11/03/19 at 13:50; Status DC Clopidogrel Bisulfate (Plavix) 75 mg DAILY PO Last administered on 11/05/19at 08:53; Start 11/02/19 at 11:00; Stop 11/05/19 at 15:30; Status DC Diclofenac Sodium (Voltaren) 1 carlos BID PRN TP BREAKTHROUGH PAIN; Start 11/02/19 at 10:15 Furosemide (Lasix) 20 mg QEVNG PO Last administered on 11/04/19at 17:54; Start 11/02/19 at 18:00; Stop 11/07/19 at 11:59; Status DC Furosemide (Lasix) 40 mg QAM PO Last administered on 11/05/19at 08:54; Start 11/02/19 at 11:00; Stop 11/07/19 at 11:59; Status DC Albuterol Sulfate (Ventolin Neb Soln) 2.5 mg PRN Q4HRS PRN NEB SHORTNESS OF BREATH Last administered on 11/07/19at 20:16; Start 11/02/19 at 10:30 Latanoprost (Xalatan) 1 drop QHS OU Last administered on 6/26/20at 20:51; Start 11/02/19 at 21:00 Lidocaine (Lidoderm) 1 patch PRN DAILY PRN TP PAIN; Start 11/02/19 at 09:00 Pantoprazole Sodium (Protonix) 20 mg DAILYAC PO ; Start 11/03/19 at 07:30; Status UNV Phenol (Chloraseptic) 1 spray PRN Q6HRS PRN MM SORE THROAT; Start 11/02/19 at 10:15 Piperacillin Sod/ Tazobactam Sod 3.375 gm/Sodium Chloride 50 ml @ 100 mls/hr Q6HRS IV Last administered on 11/09/19at 06:24; Start 11/02/19 at 11:00 Vancomycin HCl (Vanco Per Pharmacy) 1 each PRN DAILY PRN MC SEE COMMENTS Last administered on 11/09/19at 07:24; Start 11/02/19 at 10:30 Vancomycin HCl 1 gm/Sodium Chloride 250 ml @ 250 mls/hr Q24H IV Last adm inistered on 11/03/19at 22:57; Start 11/02/19 at 22:00; Stop 11/04/19 at 07:00; Status DC Vancomycin HCl (Vancomycin Trough Level) 1 each 1X ONCE MC Last administered on 11/03/19at 21:30; Start 11/03/19 at 21:30; Stop 11/03/19 at 21:31; Status DC Levetiracetam 500 mg/Dextrose 105 ml @ 420 mls/hr Q12HR IV Last administered on 11/07/19at 08:38; Start 11/03/19 at 21:00; Stop 11/07/19 at 13:16; Status DC Magnesium Sulfate 50 ml @ 25 mls/hr 1X ONCE IV Last administered on 11/03/19at 13:33; Start 11/03/19 at 12:00; Stop 11/03/19 at 13:59; Status DC Sertraline HCl (Zoloft) 50 mg DAILY PO Last administered on 11/09/19at 08:25; Start 11/04/19 at 09:00 Losartan Potassium (Cozaar) 25 mg DAILY NG Last administered on 11/05/19at 08:54; Start 11/03/19 at 14:00; Stop 11/05/19 at 09:40; Status DC Dexmedetomidine HCl 400 mcg/ Sodium Chloride 100 ml @ 0 mls/hr CONT PRN IV PER PROTOCOL Last administered on 11/05/19at 02:05; Start 11/03/19 at 14:00; Stop 11/06/19 at 10:08; Status DC Sodium Chloride 500 ml @ 500 mls/hr 1X PRN PRN IV SEE COMMENTS; Start 11/03/19 at 14:00 Atropine Sulfate (ATROPINE 0.5mg SYRINGE) 0.5 mg PRN Q5MIN PRN IV SEE COMMENTS; Start 11/03/19 at 14:00; Stop 11/07/19 at 12:28; Status DC Vancomycin HCl 1 gm/Sodium Chloride 250 ml @ 250 mls/hr Q18H IV Last administered on 11/09/19at 04:51; Start 11/04/19 at 17:00 Vancomycin HCl (Vancomycin Trough Level) 1 each 1X ONCE MC Last administered on 11/06/19at 04:30; Start 11/06/19 at 04:30; Stop 11/06/19 at 04:31; Status DC Losartan Potassium (Cozaar) 50 mg DAILY NG Last administered on 11/08/19at 11:05; Start 11/05/19 at 09:45; Stop 11/08/19 at 14:57; Status DC Epinephrine (S2 Racepinephrine) 0.5 ml 1X ONCE NEB Last administered on 11/05/19at 12:00; Start 11/05/19 at 12:00; Stop 11/05/19 at 12:01; Status DC Methylprednisolone Sodium Succinate (SOLU-Medrol 125MG VIAL) 100 mg 1X ONCE IV Last administered on 11/05/19at 12:15; Start 11/05/19 at 12:00; Stop 11/05/19 at 12:01; Status DC Furosemide (Lasix) 20 mg 1X STAT IVP Last administered on 11/05/19at 12:14; Start 11/05/19 at 12:08; Stop 11/05/19 at 12:12; Status DC Furosemide (Lasix) 20 mg 1X ONCE IVP Last administered on 11/05/19at 14:26; Start 11/05/19 at 14:15; Stop 11/05/19 at 14:16; Status DC Clopidogrel Bisulfate (Plavix) 75 mg DAILY PO Last administered on 11/09/19at 08:25; Start 11/07/19 at 11:00 Metoprolol Tartrate (Lopressor Vial) 5 mg ONCE ONCE IVP Last administered on 11/05/19at 23:56; Start 11/06/19 at 00:00; Stop 11/06/19 at 00:01; Status DC Potassium Chloride (Klor-Con) 40 meq 1X PRN PRN PO PER PROTOCOL; Start 11/05/19 at 23:45 Potassium Bicarbonate (Potassium Effervescent Tablet) 40 meq 1X PRN PRN PO PER PROTOCOL; Start 11/05/19 at 23:45 Potassium Chloride/Water 100 ml @ 100 mls/hr PRN Q1HR PRN IV PER PROTOCOL Last administered on 11/06/19at 06:03; Start 11/05/19 at 23:45; Stop 11/06/19 at 06:11; Status DC Potassium Chloride/Water 100 ml @ 100 mls/hr PRN Q1HR PRN IV PER PROTOCOL; Start 11/05/19 at 23:45 Potassium Chloride (Klor-Con) 40 meq PRN Q2HRS PRN PO PER PROTOCOL; Start at 23:45 Potassium Chloride/Water 100 ml @ 100 mls/hr PRN Q1HR PRN IV PER PROTOCOL; Start 11/05/19 at 23:45 Potassium Chloride/Water 100 ml @ 100 mls/hr PRN Q1HR PRN IV PER PROTOCOL; Start 11/05/19 at 23:45; Stop 11/06/19 at 07:44; Status DC Potassium Chloride (Klor-Con) 40 meq PRN Q2HRS PRN PO PER PROTOCOL; Start 11/05/19 at 23:45 Potassium Chloride/Water 100 ml @ 100 mls/hr PRN Q1HR PRN IV PER PROTOCOL; Start 11/05/19 at 23:45 Potassium Chloride/Water 100 ml @ 100 mls/hr PRN Q1HR PRN IV PER PROTOCOL; Start 11/06/19 at 00:01; Stop 11/06/19 at 07:44; Status DC Magnesium Sulfate 100 ml @ 50 mls/hr PRN DAILY PRN IV PER PROTOCOL; Start 11/06/19 at 00:00 Potassium Phos/ Sodium Phos (Phos-Nak) 1 pkt PRN BID PRN PO PER PROTOCOL; Start 11/06/19 at 09:00 Sodium Phosphate 40 mmol/Sodium Chloride 263.3333 ml @ 62.5 mls/hr 1X PRN PRN IV PER PROTOCOL; Start 11/05/19 at 23:45 Potassium Phosphate 13.6 mmol/Sodium Chloride 254.5333 ml @ 62.5 mls/hr PRN Q4HRS PRN IV PER PROTOCOL; Start 11/05/19 at 23:45 Magnesium Sulfate 50 ml @ 25 mls/hr 1X ONCE IV Last administered on 11/06/19at 00:31; Start 11/06/19 at 01:00; Stop 11/06/19 at 02:59; Status DC Metoprolol Tartrate (Lopressor Vial) 5 mg 1X ONCE IVP Last administered on 11/06/19at 01:52; Start 11/06/19 at 02:00; Stop 11/06/19 at 02:01; Status DC Miscellaneous (Lidoderm Patch Removal) 1 ea PRN QHS PRN MC SEE COMMENTS; Start 11/06/19 at 08:00 Metoprolol Tartrate (Lopressor Vial) 5 mg Q6HRS IVP Last administered on 11/07/19at 05:21; Start 11/06/19 at 12:00; Stop 11/07/19 at 11:59; Status DC Cyanocobalamin (Vitamin B-12) 1,000 mcg DAILY IM Last administered on 11/09/19at 08:24; Start 11/06/19 at 14:30 Furosemide (Lasix) 40 mg 1X ONCE IVP Last administered on 11/06/19at 17:35; Start 11/06/19 at 17:30; Stop 11/06/19 at 17:31; Status DC Amino Acids/ Glycerin/ Electrolytes 1,000 ml @ 80 mls/hr [id number] IV Last administered on 11/08/19at 20:52; Start 11/07/19 at 10:15 Metoprolol Succinate (Toprol Xl) 50 mg DAILY PO Last administered on 11/09/19at 08:25; Start 11/08/19 at 09:00 Furosemide (Lasix) 40 mg DAILY PO Last administered on 11/09/19at 08:25; Start 11/08/19 at 09:00 Lactobacillus Rhamnosus (Culturelle) 1 cap BID PO Last administered on 11/09/19at 08:24; Start 11/07/19 at 21:00 Levetiracetam (Keppra) 500 mg BID PO Last administered on 11/09/19at 08:24; Start 11/07/19 at 21:00 Furosemide (Lasix) 40 mg 1X ONCE IVP Last administered on 11/07/19at 21:55; Start 11/07/19 at 21:45; Stop 11/07/19 at 21:46; Status DC Cyanocobalamin (Vitamin B-12) 1,000 mcg 1X ONCE IM ; Start 11/08/19 at 08:30; Stop 11/08/19 at 08:31; Status DC Potassium Chloride (Klor-Con) 40 meq 1X ONCE PO ; Start 11/08/19 at 09:30; Stop 11/08/19 at 09:31; Status Cancel Furosemide (Lasix) 40 mg 1X ONCE IVP Last administered on 11/08/19at 17:56; Start 11/08/19 at 09:30; Stop 11/08/19 at 09:33; Status DC Pantoprazole Sodium (Protonix) 40 mg DAILYAC PO Last administered on 11/09/19at 08:24; Start 11/09/19 at 07:30 Potassium Chloride (Klor-Con) 40 meq 1X ONCE PO Last administered on 11/08/19at 11:31; Start 11/08/19 at 10:45; Stop 11/08/19 at 10:46; Status DC Potassium Chloride (Klor-Con) 40 meq 1X ONCE PO Last administered on 11/08/19at 17:56; Start 11/08/19 at 12:30; Stop 11/08/19 at 12:31; Status DC Potassium Chloride (Klor-Con) 40 meq 1X ONCE PO ; Start 11/08/19 at 11:15; Stop 11/08/19 at 11:16; Status DC Sacubitril/ Valsartan (Entresto 24 Mg-26 Mg) 1 tab BID PO ; Start 11/10/19 at 09:00 Active Scripts Active Reported Januvia (Sitagliptin Phosphate) 100 Mg Tablet 1 Tab PO DAILY Pantoprazole Sodium (Pantoprazole Sodium) 40 Mg Tablet.dr 20 Mg PO DAILYAC Glimepiride 1 Mg Tablet 1 Tab PO DAILY Hydrocodone-Apap 5-325 (Hydrocodone Bit/Acetaminophen) 1 Tab Tablet 1 Tab PO PRN Q6HRS PRN Lisinopril 10 Mg Tablet 1 Tab PO DAILY Acetaminophen 500 Mg Tablet 1 Tab PO BID Trazodone Hcl 50 Mg Tablet 0.5 Tab PO QHS Omeprazole 20 Mg Capsule.dr 1 Cap PO DAILY Novolog (Insulin Aspart) 100 Unit/1 Ml Cartridge 100 Unit SQ QIDACHS Naproxen 500 Mg Tablet 1 Tab PO PRN Q8HRS PRN Lidocaine PATCH (Lidocaine) 1 Each Adh..patch 1 Each TP DAILY REMOVE AFTER 12 HOURS Latanoprost 2.5 Ml Drops 1 Drop EACHEYE QHS Duoneb 0.5-3(2.5) Mg/3 Ml (Albuterol/Ipratropium) 3 Ml Ampul.neb 3 Ml NEB PRN Q4HRS PRN Imodium A-D (Loperamide HCl) 2 Mg Capsule 2 Mg PO PRN PRN Flonase Allergy Relief (Fluticasone Propionate) 9.9 Ml [place].susp 1 Sprays NS PRN Q12HRS PRN Coreg (Carvedilol) 3.125 Mg Tablet 3.125 Mg PO BIDWMEALS Chloraseptic (Phenol) 20 Ml [place] 1 [place] MM PRN Q6HRS PRN Calcium Citrate 250 Mg Tablet 500 Mg PO DAILY Tylenol (Acetaminophen) 325 Mg Tablet 2 Tab PO PRN Q6HRS PRN Atorvastatin Calcium 10 Mg Tablet 1 Tab PO QHS Proair Respiclick (Albuterol Sulfate) 90 Mcg Aer.pow.ba 1 Puff IH PRN Q6HRS PRN Alendronate Sodium 70 Mg Tablet 1 Tab PO WEEKLY Citalopram Hbr (Citalopram Hydrobromide) 10 Mg Tablet 1.5 Tab PO DAILY Cetirizine Hcl 10 Mg Tablet 1 Tab PO DAILY Guaifenesin 600 Mg Tablet.er 600 Mg PO PRN Q8HRS PRN Clopidogrel (Clopidogrel Bisulfate) 75 Mg Tablet 1 Tab PO DAILY Novolog Flexpen (Insulin Aspart) 100 Unit/1 Ml Insuln.pen 0-3 Unit SQ QIDACHS PATIENT SLIDING SCALE. 70-249= 0 UNITS. 250-400= 3UNITS. BEFORE MEALS AND AT BEDTIME GIVE 3 UNITS IF BLOOD SUGAR 250 OR ABOVE. Diclofenac Sodium 100 Gm Gel..gram. 1 Carlos TP DAILY D3-50 (Cholecalciferol (Vitamin D3)) 50,000 Unit Capsule 50,000 Unit PO DAILY Trazodone Hcl 50 Mg Tablet 0.5 Tab PO QHS Reglan (Metoclopramide Hcl) 5 Mg Tablet 5 Mg PO DAILY Protonix (Pantoprazole Sodium) 20 Mg Tablet. 1 Tab PO DAILY Axtell 5-325 Tablet (Hydrocodone Bit/Acetaminophen) 1 Each Tablet 1 Tab PO Q4HRS Naproxen 500 Mg Tablet 1 Tab PO Q8HRS Lisinopril 2.5 Mg Tablet 1 Tab PO DAILY Lidocaine PATCH (Lidocaine) 1 Each Adh..patch 1 Each TP DAILY REMOVE AFTER 12 HOURS Lasix (Furosemide) 20 Mg Tablet 1 Tab PO DAILY 30 Days Duoneb 0.5-3(2.5) Mg/3 Ml (Albuterol/Ipratropium) 3 Ml Ampul.neb 3 Ml NEB QID Imodium A-D (Loperamide HCl) 2 Mg Capsule 2 Mg PO DAILY Guaifenesin 400 Mg Tablet 400 Mg PO Q8HRS Coreg (Carvedilol) 3.125 Mg Tablet 3.125 Mg PO BID Clopidogrel (Clopidogrel Bisulfate) 75 Mg Tablet 75 Mg PO DAILY Citalopram Hbr (Citalopram Hydrobromide) 10 Mg Tablet 10 Mg PO DAILY Atorvastatin Calcium 10 Mg Tablet 10 Mg PO DAILY Proair Hfa Inhaler (Albuterol Sulfate) 8.5 Gm Hfa.aer.ad 1 Puff INH PRN Q6HRS Acetaminophen 500 Mg Tablet 1 Tab PO PRN Q6HRS Glimepiride 1 Mg Tablet 1 Mg PO DAILY Simvastatin 40 Mg Tablet 40 Mg PO HS Omeprazole 20 Mg Capsule.dr 20 Mg PO DAILY Januvia (Sitagliptin Phosphate) 100 Mg Tablet 100 Mg PO DAILY Vitals/I & O Vital Sign - Last 24 Hours 11/08/19 11/08/19 11/08/19 11/08/19 11:47 13:06 14:36 15:10 Temp 98.6 98.6 Pulse 94 Resp 22 B/P (MAP) 146/85 (105) Pulse Ox 95 98 99 98 O2 Delivery BiPAP/CPAP BiPAP/CPAP BiPAP/CPAP BiPAP/CPAP 11/08/19 11/08/19 11/08/19 11/08/19 16:15 16:30 17:00 17:30 Temp 98.2 98.3 98.3 98.5 98.2 98.3 98.3 98.5 Pulse 80 86 82 84 Resp 20 20 B/P (MAP) 161/84 153/79 160/73 159/71 11/08/19 11/08/19 11/08/19 11/08/19 17:50 18:00 19:04 19:40 Temp 98.2 98.2 98.2 98.2 Pulse 82 86 Resp 20 20 B/P (MAP) 159/74 148/83 (104) Pulse Ox 99 98 O2 Delivery BiPAP/CPAP BiPAP/CPAP Bi-pap 11/08/19 11/08/19 11/09/19 11/09/19 19:51 23:00 00:40 03:33 Temp 97.9 98.0 97.9 98.0 Pulse 80 84 Resp B/P (MAP) 167/94 (118) 167/79 (108) Pulse Ox 98 100 98 94 O2 Delivery BiPAP/CPAP BiPAP/CPAP BiPAP/CPAP BiPAP/CPAP 11/09/19 11/09/19 11/09/19 11/09/19 04:00 04:15 07:59 08:02 Temp 97.9 97.9 Pulse 77 Resp 20 B/P (MAP) 162/99 (120) Pulse Ox 100 95 95 O2 Delivery BiPAP/CPAP Nasal Cannula BiPAP/CPAP Bi-pap O2 Flow Rate 3.0 11/09/19 11/09/19 11/09/19 08:12 08:25 11:04 Pulse 86 B/P (MAP) 162/99 Pulse Ox 96 97 O2 Delivery BiPAP/CPAP BiPAP/CPAP Intake and Output 11/08/19 11/08/19 11/09/19 15:00 23:00 07:00 Intake Total 300 ml 200 ml Output Total 500 ml 1175 ml Balance 300 ml -300 ml -1175 ml Justicifation of Admission Dx: Justifications for Admission: Justification of Admission Dx: Yes Respiratory Failure: Mechanical Ventilation Altered Mental Status: Altered Mental Status Nutrition Consultation Dietary Evaluation: Recommendations by RD: Dietary education by RD Comments: REC continue with dysphagia I diet, thin liquids Expected Outcomes/Goals: to meet >75% of nutrition needs through PO intake Malnutrition Findings: Body Fat Depletion (Non Severe: Mild Depletion Weight Status: Overweight WALTER MCKEE MD Nov 09, 2019 11:24
[2019-11-09 11:59] VITALS: BP 137/70
[2019-11-09] MEDS: AMINO AC 3%/ELECTROLYTE/GLYCER 1,000 ML IV SCH (12:13)
[2019-11-09 15:59] VITALS: BP 150/108
[2019-11-09 19:50] VITALS: BP 152/75
[2019-11-09] MEDS: LATANOPROST 0.005% OPHTH SOLUTION 2.5ML BOTTLE. OU SCH (21:20)
[2019-11-09] MEDS: ATORVASTATIN CALCIUM 10 MG TABLET. PO SCH (21:20)
[2019-11-09] MEDS: ACETAMINOPHEN 325 MG TABLET. PO PRN (21:26)
[2019-11-09 23:21] VITALS: BP 166/82
[2019-11-10] MEDS: AMINO AC 3%/ELECTROLYTE/GLYCER 1,000 ML IV SCH ×2 (01:45→21:20)
[2019-11-10 03:25] VITALS: BP 156/73
[2019-11-10] MEDS: ACETAMINOPHEN 325 MG TABLET. PO PRN ×2 (03:39→17:09)
[2019-11-10 04:51] LABS: HEMATOCRIT 24.5 % (36.0-47.0); HEMOGLOBIN 8.3 g/dL (12.0-15.5); RED BLOOD COUNT 2.75 x10^6/uL (3.50-5.40); RED CELL DISTRIBUTION WIDTH 16.7 % (11.5-14.5)
[2019-11-10 05:11] LABS: ALBUMIN 2.2 g/dL (3.4-5.0); ALBUMIN/GLOBULIN RATIO 0.7 (1.0-1.7); CALCIUM 8.5 mg/dL (8.5-10.1); CREATININE 1.2 mg/dL (0.6-1.0); GFR 43.2; TOTAL BILIRUBIN 0.9 mg/dL (0.2-1.0); TOTAL PROTEIN 5.2 g/dL (6.4-8.2)
[2019-11-10] MEDS: PIPERACILLIN/TAZOBACTAM 3.375 GM in IV NORMAL SALINE 50ML 50 ML IV SCH ×3 (06:01→18:08)
[2019-11-10 07:22] VITALS: BP 170/94
[2019-11-10] MEDS: VANCOMYCIN PER PHARMACY MC PRN (07:41)
[2019-11-10] MEDS: levETIRAcetam 500 MG TABLET PO SCH ×2 (08:30→21:20)
[2019-11-10] MEDS: LACTOBACILLUS RHAMNOSUS GG 1 CAPSULE. PO SCH ×2 (08:30→21:20)
[2019-11-10] MEDS: CYANOCOBALAMIN (VITAMIN B-12) 1,000 MCG/ML VIAL IM SCH (08:30)
[2019-11-10] MEDS: SACUBITRIL/VALSARTAN 24/26MG TABLET. PO SCH ×2 (08:30→21:20)
[2019-11-10] MEDS: FUROSEMIDE 40 MG TABLET. PO SCH (08:30)
[2019-11-10] MEDS: SERTRALINE 50 MG TABLET. PO SCH (08:31)
[2019-11-10] MEDS: PANTOPRAZOLE 40 MG TABLET.DR. PO SCH (08:31)
[2019-11-10] MEDS: CLOPIDOGREL BISULFATE 75 MG TABLET PO SCH (08:31)
[2019-11-10] MEDS: CETIRIZINE HCL 10 MG TABLET. PO SCH (08:31)
[2019-11-10] MEDS: METOPROLOL SUCC 24HR ER 50 MG TAB.ER.24H. PO SCH (08:31)
--- NOTE | 2019-11-10 08:58 | PDOC ---
PULMONARY PROGRESS NOTES Subjective Extubated 11/04 Patient currently on N/C oxygen,wore BIPAP overnight resting comfortable, nursing denies any overnight concerns Vitals Vital Signs Date Time Temp Pulse Resp B/P (MAP) Pulse Ox O2 Delivery O2 Flow Rate FiO2 11/10/19 08:31 88 170/94 11/10/19 07:22 97.9 21 92 Nasal Cannula 5.0 97.9 ROS: No Nausea, No Chest Pain, No Abdominal Pain, No Increase Cough General: Alert Lungs: Clear Cardiovascular: S1 Abdomen: Soft Neuro Exam: Alert Extremities: No Edema Skin: Warm Labs Laboratory Tests Test 11/08/19 11:18 11/08/19 16:36 11/08/19 20:00 11/09/19 04:45 Glucose (Fingerstick) 180 mg/dL (70-99) 171 mg/dL (70-99) Hemoglobin 8.7 g/dL (12.0-15.5) 8.0 g/dL (12.0-15.5) Potassium Level 3.7 mmol/L (3.5-5.1) 4.1 mmol/L (3.5-5.1) White Blood Count 10.6 x10^3/uL (4.0-11.0) Red Blood Count 2.62 x10^6/uL (3.50-5.40) Hematocrit 23.6 % (36.0-47.0) Mean Corpuscular Volume 90 fL (79-100) Mean Corpuscular Hemoglobin 31 pg (25-35) Mean Corpuscular Hemoglobin Concent 34 g/dL (31-37) Red Cell Distribution Width 16.3 % (11.5-14.5) Platelet Count 312 x10^3/uL (140-400) Neutrophils (%) (Auto) 74 % (31-73) Lymphocytes (%) (Auto) 11 % (24-48) Monocytes (%) (Auto) 14 % (0-9) Eosinophils (%) (Auto) 1 % (0-3) Basophils (%) (Auto) 1 % (0-3) Neutrophils # (Auto) 7.8 x10^3/uL (1.8-7.7) Lymphocytes # (Auto) 1.1 x10^3/uL (1.0-4.8) Monocytes # (Auto) 1.5 x10^3/uL (0.0-1.1) Eosinophils # (Auto) 0.1 x10^3/uL (0.0-0.7) Basophils # (Auto) 0.1 x10^3/uL (0.0-0.2) Sodium Level 136 mmol/L (136-145) Chloride Level 99 mmol/L (98-107) Carbon Dioxide Level 29 mmol/L (21-32) Anion Gap 8 (6-14) Blood Urea Nitrogen 28 mg/dL (7-20) Creatinine 1.2 mg/dL (0.6-1.0) Estimated GFR (Cockcroft-Gault) 43.2 Glucose Level 165 mg/dL (70-99) Calcium Level 8.5 mg/dL (8.5-10.1) Test 11/09/19 07:29 11/09/19 11:16 11/09/19 17:14 11/10/19 04:45 Glucose (Fingerstick) 146 mg/dL (70-99) 172 mg/dL (70-99) 174 mg/dL (70-99) White Blood Count 13.0 x10^3/uL (4.0-11.0) Red Blood Count 2.75 x10^6/uL (3.50-5.40) Hemoglobin 8.3 g/dL (12.0-15.5) Hematocrit 24.5 % (36.0-47.0) Mean Corpuscular Volume 89 fL (79-100) Mean Corpuscular Hemoglobin 30 pg (25-35) Mean Corpuscular Hemoglobin Concent 34 g/dL (31-37) Red Cell Distribution Width 16.7 % (11.5-14.5) Platelet Count 418 x10^3/uL (140-400) Sodium Level 138 mmol/L (136-145) Potassium Level 4.0 mmol/L (3.5-5.1) Chloride Level 102 mmol/L (98-107) Carbon Dioxide Level 29 mmol/L (21-32) Anion Gap 7 (6-14) Blood Urea Nitrogen 33 mg/dL (7-20) Creatinine 1.2 mg/dL (0.6-1.0) Estimated GFR (Cockcroft-Gault) 43.2 BUN/Creatinine Ratio 28 (6-20) Glucose Level 176 mg/dL (70-99) Calcium Level 8.5 mg/dL (8.5-10.1) Total Bilirubin 0.9 mg/dL (0.2-1.0) Aspartate Amino Transf (AST/SGOT) 21 U/L (15-37) Alanine Aminotransferase (ALT/SGPT) 18 U/L (14-59) Alkaline Phosphatase 76 U/L (46-116) Total Protein 5.2 g/dL (6.4-8.2) Albumin 2.2 g/dL (3.4-5.0) Albumin/Globulin Ratio 0.7 (1.0-1.7) Test 11/10/19 07:40 Glucose (Fingerstick) 163 mg/dL (70-99) Laboratory Tests Test 11/09/19 11:16 11/09/19 17:14 11/10/19 04:45 11/10/19 07:40 Glucose (Fingerstick) 172 mg/dL (70-99) 174 mg/dL (70-99) 163 mg/dL (70-99) White Blood Count 13.0 x10^3/uL (4.0-11.0) Red Blood Count 2.75 x10^6/uL (3.50-5.40) Hemoglobin 8.3 g/dL (12.0-15.5) Hematocrit 24.5 % (36.0-47.0) Mean Corpuscular Volume 89 fL (79-100) Mean Corpuscular Hemoglobin 30 pg (25-35) Mean Corpuscular Hemoglobin Concent 34 g/dL (31-37) Red Cell Distribution Width 16.7 % (11.5-14.5) Platelet Count 418 x10^3/uL (140-400) Sodium Level 138 mmol/L (136-145) Potassium Level 4.0 mmol/L (3.5-5.1) Chloride Level 102 mmol/L (98-107) Carbon Dioxide Level 29 mmol/L (21-32) Anion Gap 7 (6-14) Blood Urea Nitrogen 33 mg/dL (7-20) Creatinine 1.2 mg/dL (0.6-1.0) Estimated GFR (Cockcroft-Gault) 43.2 BUN/Creatinine Ratio 28 (6-20) Glucose Level 176 mg/dL (70-99) Calcium Level 8.5 mg/dL (8.5-10.1) Total Bilirubin 0.9 mg/dL (0.2-1.0) Aspartate Amino Transf (AST/SGOT) 21 U/L (15-37) Alanine Aminotransferase (ALT/SGPT) 18 U/L (14-59) Alkaline Phosphatase 76 U/L (46-116) Total Protein 5.2 g/dL (6.4-8.2) Albumin 2.2 g/dL (3.4-5.0) Albumin/Globulin Ratio 0.7 (1.0-1.7) Medications Active Scripts Medications Dose Route/Sig Max Daily Dose Days Date Category Dose Instructions Januvia (Sitagliptin Phosphate) 100 Mg Tablet 1 Tab PO DAILY 11/02/19 Reported Pantoprazole Sodium (Pantoprazole Sodium) 40 Mg Tablet.dr 20 Mg PO DAILYAC 11/02/19 Reported Glimepiride 1 Mg Tablet 1 Tab PO DAILY 11/02/19 Reported Hydrocodone-Apap 5-325 (Hydrocodone Bit/Acetaminophen) 1 Tab Tablet 1 Tab PO PRN Q6HRS PRN 11/02/19 Reported Lisinopril 10 Mg Tablet 1 Tab PO DAILY 11/02/19 Reported Acetaminophen 500 Mg Tablet 1 Tab PO BID 11/30/18 Reported Trazodone Hcl 50 Mg Tablet 0.5 Tab PO QHS 11/30/18 Reported Omeprazole 20 Mg Capsule.dr 1 Cap PO DAILY 11/30/18 Reported Novolog (Insulin Aspart) 100 Unit/1 Ml Cartridge 100 Unit SQ QIDACHS 11/30/18 Reported Naproxen 500 Mg Tablet 1 Tab PO PRN Q8HRS PRN 11/30/18 Reported Lidocaine PATCH (Lidocaine) 1 Each Adh..patch 1 Each TP DAILY 11/30/18 Reported REMOVE AFTER 12 HOURS Latanoprost 2.5 Ml Drops 1 Drop EACHEYE QHS 11/30/18 Reported Duoneb 0.5-3(2.5) Mg/3 Ml (Albuterol/Ipratropium) 3 Ml Ampul.neb 3 Ml NEB PRN Q4HRS PRN 11/30/18 Reported Imodium A-D (Loperamide HCl) 2 Mg Capsule 2 Mg PO PRN PRN 11/30/18 Reported Flonase Allergy Relief (Fluticasone Propionate) 9.9 Ml [place].susp 1 Sprays NS PRN Q12HRS PRN 11/30/18 Reported Coreg (Carvedilol) 3.125 Mg Tablet 3.125 Mg PO BIDWMEALS 11/30/18 Reported Chloraseptic (Phenol) 20 Ml [place] 1 [place] MM PRN Q6HRS PRN 11/30/18 Reported Calcium Citrate 250 Mg Tablet 500 Mg PO DAILY 11/30/18 Reported Tylenol (Acetaminophen) 325 Mg Tablet 2 Tab PO PRN Q6HRS PRN 11/30/18 Reported Atorvastatin Calcium 10 Mg Tablet 1 Tab PO QHS 11/30/18 Reported Proair Respiclick (Albuterol Sulfate) 90 Mcg Aer.pow.ba 1 Puff IH PRN Q6HRS PRN 01/18/17 Reported Alendronate Sodium 70 Mg Tablet 1 Tab PO WEEKLY 01/18/17 Reported Citalopram Hbr (Citalopram Hydrobromide) 10 Mg Tablet 1.5 Tab PO DAILY 01/18/17 Reported Cetirizine Hcl 10 Mg Tablet 1 Tab PO DAILY 01/18/17 Reported Guaifenesin 600 Mg Tablet.er 600 Mg PO PRN Q8HRS PRN 01/18/17 Reported Clopidogrel (Clopidogrel Bisulfate) 75 Mg Tablet 1 Tab PO DAILY 01/18/17 Reported Novolog Flexpen (Insulin Aspart) 100 Unit/1 Ml Insuln.pen 0-3 Unit SQ QIDACHS 10/25/19 Reported PATIENT SLIDING SCALE. 70-249= 0 UNITS. 250-400= 3UNITS. BEFORE MEALS AND AT BEDTIME GIVE 3 UNITS IF BLOOD SUGAR 250 OR ABOVE. Diclofenac Sodium 100 Gm Gel..gram. 1 [place] TP DAILY 10/25/19 Reported D3-50 (Cholecalciferol (Vitamin D3)) 50,000 Unit Capsule 50,000 Unit PO DAILY 10/25/19 Reported Trazodone Hcl 50 Mg Tablet 0.5 Tab PO QHS 10/25/19 Reported Reglan (Metoclopramide Hcl) 5 Mg Tablet 5 Mg PO DAILY 10/25/19 Reported Protonix (Pantoprazole Sodium) 20 Mg Tablet.dr 1 Tab PO DAILY 10/25/19 Reported [place] 5-325 Tablet (Hydrocodone Bit/Acetaminophen) 1 Each Tablet 1 Tab PO Q4HRS 10/25/19 Reported Naproxen 500 Mg Tablet 1 Tab PO Q8HRS 10/25/19 Reported Lisinopril 2.5 Mg Tablet 1 Tab PO DAILY 10/25/19 Reported Lidocaine PATCH (Lidocaine) 1 Each Adh..patch 1 Each TP DAILY 10/25/19 Reported REMOVE AFTER 12 HOURS Lasix (Furosemide) 20 Mg Tablet 1 Tab PO DAILY 30 10/25/19 Reported Duoneb 0.5-3(2.5) Mg/3 Ml (Albuterol/Ipratropium) 3 Ml Ampul.neb 3 Ml NEB QID 10/25/19 Reported Imodium A-D (Loperamide HCl) 2 Mg Capsule 2 Mg PO DAILY 10/25/19 Reported Guaifenesin 400 Mg Tablet 400 Mg PO Q8HRS 10/25/19 Reported Coreg (Carvedilol) 3.125 Mg Tablet 3.125 Mg PO BID 10/25/19 Reported Clopidogrel (Clopidogrel Bisulfate) 75 Mg Tablet 75 Mg PO DAILY 10/25/19 Reported Citalopram Hbr (Citalopram Hydrobromide) 10 Mg Tablet 10 Mg PO DAILY 10/25/19 Reported Atorvastatin Calcium 10 Mg Tablet 10 Mg PO DAILY 10/25/19 Reported Proair Hfa Inhaler (Albuterol Sulfate) 8.5 Gm Hfa.aer.ad 1 Puff INH PRN Q6HRS 10/25/19 Reported Acetaminophen 500 Mg Tablet 1 Tab PO PRN Q6HRS 10/25/19 Reported Glimepiride 1 Mg Tablet 1 Mg PO DAILY 07/05/14 Reported Simvastatin 40 Mg Tablet 40 Mg PO HS 07/05/14 Reported Omeprazole 20 Mg Capsule.dr 20 Mg PO DAILY 07/05/14 Reported Januvia (Sitagliptin Phosphate) 100 Mg Tablet 100 Mg PO DAILY 07/05/14 Reported Comments Chest x-ray 624 improved ECHO <Conclusion> The left ventricular systolic function is severely impaired. The Ejection Fraction is 25%. Transmitral Doppler flow pattern is Grade II-pseudonormal filling dynamics. Mild to moderate mitral regurgitation. Moderate to severe tricuspid regurgitation with an estimated PAP of 83 mmHg. There is severe pulmonary hypertension. There is no evidence of significant pericardial effusion. Impression . IMPRESSION: 1. Acute respiratory failure, multifactorial in etiology. Extubated 11/04 /developed flash pulmonary edema post extubation from hypertensive urgency Rx with lasix/ bipap, --- improving 2. New-onset seizure.-- no further seizures reported 3. Acute diastolic congestive heart failure, rule out myocardial infarction, less likely pneumonia. 4. Abnormal chest x-ray. 5. Electrolyte abnormality. 6. Hypertensive urgency. 7. Diabetes mellitus. 8. COVID-19 Neg 9. Dysphagia 10. cardiomyopathy EF 25% Plan . Continue BIPAP PRN and at HS, currently on N/C Continue PPN -- speech following Follow cardiology recs -- Follow GI recs Cont. ABX PT/OT -- OOB as tolerated D/W CRYS CHUA MD Nov 10, 2019 08:58
[2019-11-10 10:53] VITALS: BP 167/72
--- NOTE | 2019-11-10 11:39 | PN ---
DATE: 11/10/2019 SUBJECTIVE: The patient is resting, slightly propped up in bed, in no apparent respiratory distress. She is definitely more awake, alert. She is off BiPAP, maintaining her oxygen saturation at 93% on 3 liters of oxygen by nasal cannula. On questioning her, she denied any complaints, in particular denied any chest pain, shortness of breath, orthopnea or paroxysmal nocturnal dyspnea. PHYSICAL EXAMINATION: GENERAL: When I examined her, she was pale, no jaundice, cyanosis or thyromegaly. No jugular venous distention. No lower limb edema. VITAL SIGNS: Her heart rate was 90, blood pressure was 167/72, temperature was 98, respiratory rate was 20, and oxygen saturation was 93% on 5 liters of oxygen by nasal cannula. HEAD, EYES, EARS, NOSE AND THROAT: Showed she is normocephalic, atraumatic. NECK: Supple. CARDIAC: Normal first and second heart sounds with no gallop, rub or murmur. CHEST: Clear to auscultation. No crepitation or rhonchi. ABDOMEN: Distended, soft, nontender. NEUROLOGIC: She is definitely more awake, alert, responding appropriately. All cranial nerves intact. She moves upper extremities to much good extent than lower extremities, she is mostly bedbound. Her intake over the last 24 hours was 500, output was 1675. LABORATORY DATA: As of this morning, her white cell count was 13,000; hemoglobin 8.3; hematocrit 24; MCV 89 and platelet count of 418,000. Her serum sodium was 138, potassium 4, chloride 102, bicarbonate 29, anion gap of 7, BUN 33, creatinine 1.2, estimated GFR was 43 mL per minute. Her glucose 176, calcium was 8.5. Total bilirubin, AST, ALT, alkaline phosphatase were normal. Total protein was 5.2, albumin was 2.2. ASSESSMENT: 1. Acute respiratory failure secondary to aspiration pneumonia for which she was intubated and mechanically ventilated; however, she was successfully extubated on 11/05/2019. 2. Flash pulmonary edema due to accelerated hypertension post-extubation, improved. 3. Accelerated hypertension for which she was on Cardene drip. She is now on metoprolol succinate 50 mg once a day. 4. New onset tonic-clonic seizures for which she is on Keppra 500 mg IV twice a day. No further episode of seizures documented. 5. Hypokalemia, resolved. Her most recent serum potassium was 4.9. 6. Mildly elevated troponin, felt to be likely due to demand ischemia. 7. Acute on chronic systolic congestive heart failure. Her left ventricular systolic function is severely impaired with an ejection fraction of only 25%. 8. Anemia, without any obvious site of bleeding. In particular, no hematemesis, melena or hematochezia. 9. Her MRI showed signal abnormality within the posterior temporoparietal and occipital subcortical white matter, may represents a posterior reversible encephalopathy syndrome. 10. Severe protein-calorie malnutrition, serum albumin is only 2.2. PLAN: Plan is to continue with nutritional support with TPN. Continue with metoprolol for high blood pressure. Continue with Keppra for her seizure disorder and furosemide for acute on chronic systolic congestive heart failure and Zosyn and vancomycin. I have already consulted our home health care case manager to see whether the patient qualifies to be transferred to [facility], hopefully tomorrow. FINESSE GEORGES MD DR: IRISH/shubham JOB#: [id number] / [id number]
--- NOTE | 2019-11-10 13:30 | PDOC ---
PROGRESS NOTES Subjective Subjective Patient seen and examined Objective Objective Vital Signs Date Time Temp Pulse Resp B/P (MAP) Pulse Ox O2 Delivery O2 Flow Rate FiO2 11/10/19 10:53 98.0 90 20 167/72 (103) 93 Nasal Cannula 5.0 98.0 Intake and Output 11/10/19 07:00 Intake Total 250 ml Output Total 1850 ml Balance -1600 ml Intake Oral 250 ml Output Urine Total 650 ml Stool Total 1200 ml Physical Exam Abdomen: Normal bowel sounds Heart: Regular rate General: mild distress Lungs: Other (Decreased breath sounds) Assessment Assessment Accelerated hypertension: controlled New onset seizure disorder with encephalopathy: on keppra per neurology. Acute respiratory failure, multifactorial: s/p intubation, treat per pulmonary team. COVID test negative . She reports increasing shortness of breath this morning. Acute on chronic diastolic/systolic heart failure: Decreased ejection fraction at 25%. Heart catheterization postponed due to drop in hemoglobin/ hematocrit requiring transfusions that now has improved. We will continue present treatments and monitor. Will reevaluate in the morning regarding possible cardiac catheterization and timing of it. Will need pretreatment for reported iodine allergy . Mild troponin elevation: multifact Paroxysmal Torsades: none further after BB initiation Hx of LE PAD: on plavix with past stenting in 2017 Cardiomyopathy: EF at 25% New Moderate to severe TR Severe Pulmonary HTN: PAP 83 mmhg New Comment Review of Relevant I have reviewed the following items regina (where applicable) has been applied. Labs Laboratory Tests Test 11/08/19 16:36 11/08/19 20:00 11/09/19 04:45 11/09/19 07:29 Glucose (Fingerstick) 171 mg/dL (70-99) 146 mg/dL (70-99) Hemoglobin 8.7 g/dL (12.0-15.5) 8.0 g/dL (12.0-15.5) Potassium Level 3.7 mmol/L (3.5-5.1) 4.1 mmol/L (3.5-5.1) White Blood Count 10.6 x10^3/uL (4.0-11.0) Red Blood Count 2.62 x10^6/uL (3.50-5.40) Hematocrit 23.6 % (36.0-47.0) Mean Corpuscular Volume 90 fL (79-100) Mean Corpuscular Hemoglobin 31 pg (25-35) Mean Corpuscular Hemoglobin Concent 34 g/dL (31-37) Red Cell Distribution Width 16.3 % (11.5-14.5) Platelet Count 312 x10^3/uL (140-400) Neutrophils (%) (Auto) 74 % (31-73) Lymphocytes (%) (Auto) 11 % (24-48) Monocytes (%) (Auto) 14 % (0-9) Eosinophils (%) (Auto) 1 % (0-3) Basophils (%) (Auto) 1 % (0-3) Neutrophils # (Auto) 7.8 x10^3/uL (1.8-7.7) Lymphocytes # (Auto) 1.1 x10^3/uL (1.0-4.8) Monocytes # (Auto) 1.5 x10^3/uL (0.0-1.1) Eosinophils # (Auto) 0.1 x10^3/uL (0.0-0.7) Basophils # (Auto) 0.1 x10^3/uL (0.0-0.2) Sodium Level 136 mmol/L (136-145) Chloride Level 99 mmol/L (98-107) Carbon Dioxide Level 29 mmol/L (21-32) Anion Gap 8 (6-14) Blood Urea Nitrogen 28 mg/dL (7-20) Creatinine 1.2 mg/dL (0.6-1.0) Estimated GFR (Cockcroft-Gault) 43.2 Glucose Level 165 mg/dL (70-99) Calcium Level 8.5 mg/dL (8.5-10.1) Test 11/09/19 11:16 11/09/19 17:14 11/10/19 04:45 11/10/19 07:40 Glucose (Fingerstick) 172 mg/dL (70-99) 174 mg/dL (70-99) 163 mg/dL (70-99) White Blood Count 13.0 x10^3/uL (4.0-11.0) Red Blood Count 2.75 x10^6/uL (3.50-5.40) Hemoglobin 8.3 g/dL (12.0-15.5) Hematocrit 24.5 % (36.0-47.0) Mean Corpuscular Volume 89 fL (79-100) Mean Corpuscular Hemoglobin 30 pg (25-35) Mean Corpuscular Hemoglobin Concent 34 g/dL (31-37) Red Cell Distribution Width 16.7 % (11.5-14.5) Platelet Count 418 x10^3/uL (140-400) Sodium Level 138 mmol/L (136-145) Potassium Level 4.0 mmol/L (3.5-5.1) Chloride Level 102 mmol/L (98-107) Carbon Dioxide Level 29 mmol/L (21-32) Anion Gap 7 (6-14) Blood Urea Nitrogen 33 mg/dL (7-20) Creatinine 1.2 mg/dL (0.6-1.0) Estimated GFR (Cockcroft-Gault) 43.2 BUN/Creatinine Ratio 28 (6-20) Glucose Level 176 mg/dL (70-99) Calcium Level 8.5 mg/dL (8.5-10.1) Total Bilirubin 0.9 mg/dL (0.2-1.0) Aspartate Amino Transf (AST/SGOT) 21 U/L (15-37) Alanine Aminotransferase (ALT/SGPT) 18 U/L (14-59) Alkaline Phosphatase 76 U/L (46-116) Total Protein 5.2 g/dL (6.4-8.2) Albumin 2.2 g/dL (3.4-5.0) Albumin/Globulin Ratio 0.7 (1.0-1.7) Test 11/10/19 11:43 Glucose (Fingerstick) 197 mg/dL (70-99) Laboratory Tests Test 11/09/19 17:14 11/10/19 04:45 11/10/19 07:40 11/10/19 11:43 Glucose (Fingerstick) 174 mg/dL (70-99) 163 mg/dL (70-99) 197 mg/dL (70-99) White Blood Count 13.0 x10^3/uL (4.0-11.0) Red Blood Count 2.75 x10^6/uL (3.50-5.40) Hemoglobin 8.3 g/dL (12.0-15.5) Hematocrit 24.5 % (36.0-47.0) Mean Corpuscular Volume 89 fL (79-100) Mean Corpuscular Hemoglobin 30 pg (25-35) Mean Corpuscular Hemoglobin Concent 34 g/dL (31-37) Red Cell Distribution Width 16.7 % (11.5-14.5) Platelet Count 418 x10^3/uL (140-400) Sodium Level 138 mmol/L (136-145) Potassium Level 4.0 mmol/L (3.5-5.1) Chloride Level 102 mmol/L (98-107) Carbon Dioxide Level 29 mmol/L (21-32) Anion Gap 7 (6-14) Blood Urea Nitrogen 33 mg/dL (7-20) Creatinine 1.2 mg/dL (0.6-1.0) Estimated GFR (Cockcroft-Gault) 43.2 BUN/Creatinine Ratio 28 (6-20) Glucose Level 176 mg/dL (70-99) Calcium Level 8.5 mg/dL (8.5-10.1) Total Bilirubin 0.9 mg/dL (0.2-1.0) Aspartate Amino Transf (AST/SGOT) 21 U/L (15-37) Alanine Aminotransferase (ALT/SGPT) 18 U/L (14-59) Alkaline Phosphatase 76 U/L (46-116) Total Protein 5.2 g/dL (6.4-8.2) Albumin 2.2 g/dL (3.4-5.0) Albumin/Globulin Ratio 0.7 (1.0-1.7) Medications Current Medications Fentanyl Citrate 30 ml @ 0 mls/hr CONT PRN IV SEE PROTOCOL; Start 11/02/19 at 02:45; Status Cancel Propofol 100 ml @ 0 mls/hr CONT PRN IV SEE PROTOCOL; Start 11/02/19 at 02:45; Status Cancel Fentanyl Citrate (Fentanyl 2ml Vial) 25 mcg PRN Q1HR PRN IV SEE COMMENTS; Start 11/02/19 at 02:45; Status Cancel Fentanyl Citrate (Fentanyl 2ml Vial) 50 mcg PRN Q1HR PRN IV SEE COMMENTS; Start 11/02/19 at 02:45; Status Cancel Chlorhexidine Gluconate (Peridex) 15 ml BID MM ; Start 11/02/19 at 09:00; Status Cancel Morphine Sulfate (Morphine Sulfate) 2 mg PRN Q1HR PRN IV SEE COMMENTS.; Start 11/02/19 at 02:45; Status Cancel Morphine Sulfate (Morphine Sulfate) 4 mg PRN Q1HR PRN IV SEE COMMENTS.; Start 11/02/19 at 02:45; Status Cancel Midazolam HCl 100 ml @ 0 mls/hr CONT PRN IV SEE PROTOCOL; Start 11/02/19 at 02:45; Status Cancel Diphenhydramine HCl (Benadryl) 25 mg PRN Q15MIN PRN IVP EPS Symptoms; Start 11/02/19 at 02:45; Status Cancel Nicardipine HCl 50 mg/Sodium Chloride 250 ml @ 25 mls/hr CONT PRN IV SEE I/O RECORD Last administered on 11/02/19at 16:45; Start 11/02/19 at 03:15 Propofol 100 ml @ As Directed STK-MED ONCE IV ; Start 11/02/19 at 02:49; Stop 11/02/19 at 03:22; Status DC Propofol 100 ml @ 0 mls/hr CONT PRN IV SEE PROTOCOL Last administered on 11/03/19at 11:18; Start 11/02/19 at 03:30; Stop 11/03/19 at 13:54; Status DC Fentanyl Citrate (Fentanyl 2ml Vial) 25 mcg PRN Q1HR PRN IV SEE COMMENTS; Start 11/02/19 at 03:30; Stop 11/06/19 at 10:08; Status DC Fentanyl Citrate (Fentanyl 2ml Vial) 50 mcg PRN Q1HR PRN IV SEE COMMENTS; Start 11/02/19 at 03:30; Stop 11/06/19 at 10:08; Status DC Chlorhexidine Gluconate (Peridex) 15 ml BID MM Last administered on 11/05/19at 08:54; Start 11/02/19 at 09:00; Stop 11/06/19 at 10:08; Status DC Famotidine (Pepcid Vial) 20 mg DAILY IVP Last administered on 11/07/19at 08:39; Start 11/02/19 at 09:00; Stop 11/08/19 at 09:56; Status DC Morphine Sulfate (Morphine Sulfate) 2 mg PRN Q1HR PRN IV SEE COMMENTS. Last administered on 11/04/19at 17:55; Start 11/02/19 at 03:30 Morphine Sulfate (Morphine Sulfate) 4 mg PRN Q1HR PRN IV SEE COMMENTS. Last administered on 11/07/19at 05:18; Start 11/02/19 at 03:30 Potassium Bicarbonate (Potassium Effervescent Tablet) 40 meq 1X ONCE PEG Last administered on 11/02/19 08:38; Start 11/02/19 at 07:30; Stop 11/02/19 at 07:31; Status DC Potassium Bicarbonate (Potassium Effervescent Tablet) 40 meq 1X ONCE PEG Last administered on 11/02/19 10:02; Start 11/02/19 at 08:00; Stop 11/02/19 at 08:01; Status DC Potassium Bicarbonate (Potassium Effervescent Tablet) 40 meq 1X ONCE PEG Last administered on 11/02/19 10:41; Start 11/02/19 at 09:00; Stop 11/02/19 at 09:01; Status DC Magnesium Sulfate 50 ml @ 25 mls/hr 1X ONCE IV Last administered on 11/02/19 08:37; Start 11/02/19 at 07:30; Stop 11/02/19 at 09:29; Status DC Famotidine (Pepcid Vial) 20 mg DAILY IVP ; Start 11/02/19 at 09:00; Status UNV Ceftriaxone Sodium (Rocephin) 1 gm Q24H IVP Last administered on 11/04/19at 08:46; Start 11/02/19 at 09:00; Stop 11/04/19 at 15:04; Status DC Levetiracetam 1000 mg/Dextrose 110 ml @ 440 mls/hr Q12HR IV Last administered on 11/03/19 09:13; Start 11/02/19 at 11:00; Stop 11/03/19 at 09:32; Status DC Acetaminophen (Tylenol) 650 mg PRN Q6HRS PRN PO PAIN Last administered on 11/10/19 03:39; Start 11/02/19 at 10:15 Atorvastatin Calcium (Lipitor) 10 mg QHS PO Last administered on 11/09/19 21:20; Start 11/02/19 at 21:00 Carvedilol (Coreg) 3.125 mg BIDWMEALS PO Last administered on 11/03/19 08:02; Start 11/02/19 at 11:00; Stop 11/07/19 at 12:02; Status DC Cetirizine HCl (ZyrTEC) 10 mg DAILY PO Last administered on 6/28/20at 08:31; Start 11/02/19 at 11:00 Citalopram Hydrobromide (CeleXA) 15 mg DAILY PO Last administered on 11/03/19at 09:14; Start 11/02/19 at 11:00; Stop 11/03/19 at 13:50; Status DC Clopidogrel Bisulfate (Plavix) 75 mg DAILY PO Last administered on 11/05/19 08:53; Start 11/02/19 at 11:00; Stop 11/05/19 at 15:30; Status DC Diclofenac Sodium (Voltaren) 1 carlos BID PRN TP BREAKTHROUGH PAIN; Start 11/02/19 at 10:15 Furosemide (Lasix) 20 mg QEVNG PO Last administered on 11/04/19at 17:54; Start 11/02/19 at 18:00; Stop 11/07/19 at 11:59; Status DC Furosemide (Lasix) 40 mg QAM PO Last administered on 11/05/19at 08:54; Start 11/02/19 at 11:00; Stop 11/07/19 at 11:59; Status DC Albuterol Sulfate (Ventolin Neb Soln) 2.5 mg PRN Q4HRS PRN NEB SHORTNESS OF BREATH Last administered on 11/07/19at 20:16; Start 11/02/19 at 10:30 Latanoprost (Xalatan) 1 drop QHS OU Last administered on 11/09/19at 21:20; Start 11/02/19 at 21:00 Lidocaine (Lidoderm) 1 patch PRN DAILY PRN TP PAIN; Start 11/02/19 at 09:00 Pantoprazole Sodium (Protonix) 20 mg DAILYAC PO ; Start 11/03/19 at 07:30; Status UNV Phenol (Chloraseptic) 1 spray PRN Q6HRS PRN MM SORE THROAT; Start 11/02/19 at 10:15 Piperacillin Sod/ Tazobactam Sod 3.375 gm/Sodium Chloride 50 ml @ 100 mls/hr Q6HRS IV Last administered on 11/10/19at 12:12; Start 11/02/19 at 11:00 Vancomycin HCl (Vanco Per Pharmacy) 1 each PRN DAILY PRN MC SEE COMMENTS Last administered on 11/10/19at 07:41; Start 11/02/19 at 10:30 Vancomycin HCl 1 gm/Sodium Chloride 250 ml @ 250 mls/hr Q24H IV Last administered on 11/03/19at 22:57; Start 11/02/19 at 22:00; Stop 11/04/19 at 07:00; Status DC Vancomycin HCl (Vancomycin Trough Level) 1 each 1X ONCE MC Last administered on 11/03/19at 21:30; Start 11/03/19 at 21:30; Stop 11/03/19 at 21:31; Status DC Levetiracetam 500 mg/Dextrose 105 ml @ 420 mls/hr Q12HR IV Last administered on 11/07/19at 08:38; Start 11/03/19 at 21:00; Stop 11/07/19 at 13:16; Status DC Magnesium Sulfate 50 ml @ 25 mls/hr 1X ONCE IV Last administered on 11/03/19at 13:33; Start 11/03/19 at 12:00; Stop 11/03/19 at 13:59; Status DC Sertraline HCl (Zoloft) 50 mg DAILY PO Last administered on 11/10/19at 08:31; Start 11/04/19 at 09:00 Losartan Potassium (Cozaar) 25 mg DAILY NG Last administered on 11/05/19at 08:54; Start 11/03/19 at 14:00; Stop 11/05/19 at 09:40; Status DC Dexmedetomidine HCl 400 mcg/ Sodium Chloride 100 ml @ 0 mls/hr CONT PRN IV PER PROTOCOL Last administered on 11/05/19at 02:05; Start 11/03/19 at 14:00; Stop 11/06/19 at 10:08; Status DC Sodium Chloride 500 ml @ 500 mls/hr 1X PRN PRN IV SEE COMMENTS; Start 11/03/19 at 14:00 Atropine Sulfate (ATROPINE 0.5mg SYRINGE) 0.5 mg PRN Q5MIN PRN IV SEE COMMENTS; Start 11/03/19 at 14:00; Stop 11/07/19 at 12:28; Status DC Vancomycin HCl 1 gm/Sodium Chloride 250 ml @ 250 mls/hr Q18H IV Last administered on 11/09/19at 22:49; Start 11/04/19 at 17:00 Vancomycin HCl (Vancomycin Trough Level) 1 each 1X ONCE MC Last administered on 11/06/19at 04:30; Start 11/06/19 at 04:30; Stop 11/06/19 at 04:31; Status DC Losartan Potassium (Cozaar) 50 mg DAILY NG Last administered on 11/08/19at 11:05; Start 11/05/19 at 09:45; Stop 11/08/19 at 14:57; Status DC Epinephrine (S2 Racepinephrine) 0.5 ml 1X ONCE NEB Last administered on 11/05/19at 12:00; Start 11/05/19 at 12:00; Stop 11/05/19 at 12:01; Status DC Methylprednisolone Sodium Succinate (SOLU-Medrol 125MG VIAL) 100 mg 1X ONCE IV Last administered on 11/05/19at 12:15; Start 11/05/19 at 12:00; Stop 11/05/19 at 12:01; Status DC Furosemide (Lasix) 20 mg 1X STAT IVP Last administered on 11/05/19at 12:14; Start 11/05/19 at 12:08; Stop 11/05/19 at 12:12; Status DC Furosemide (Lasix) 20 mg 1X ONCE IVP Last administered on 11/05/19at 14:26; Start 11/05/19 at 14:15; Stop 11/05/19 at 14:16; Status DC Clopidogrel Bisulfate (Plavix) 75 mg DAILY PO Last administered on 11/10/19at 08:31; Start 11/07/19 at 11:00 Metoprolol Tartrate (Lopressor Vial) 5 mg ONCE ONCE IVP Last administered on 11/05/19at 23:56; Start 11/06/19 at 00:00; Stop 11/06/19 at 00:01; Status DC Potassium Chloride (Klor-Con) 40 meq 1X PRN PRN PO PER PROTOCOL; Start 11/05/19 at 23:45 Potassium Bicarbonate (Potassium Effervescent Tablet) 40 meq 1X PRN PRN PO PER PROTOCOL; Start 11/05/19 at 23:45 Potassium Chloride/Water 100 ml @ 100 mls/hr PRN Q1HR PRN IV PER PROTOCOL Last administered on 11/06/19at 06:03; Start 11/05/19 at 23:45; Stop 11/06/19 at 06:11; Status DC Potassium Chloride/Water 100 ml @ 100 mls/hr PRN Q1HR PRN IV PER PROTOCOL; Start 11/05/19 at 23:45 Potassium Chloride (Klor-Con) 40 meq PRN Q2HRS PRN PO PER PROTOCOL; Start 11/05/19 at 23:45 Potassium Chloride/Water 100 ml @ 100 mls/hr PRN Q1HR PRN IV PER PROTOCOL; Start 11/05/19 at 23:45 Potassium Chloride/Water 100 ml @ 100 mls/hr PRN Q1HR PRN IV PER PROTOCOL; Start 11/05/19 at 23:45; Stop 11/06/19 at 07:44; Status DC Potassium Chloride (Klor-Con) 40 meq PRN Q2HRS PRN PO PER PROTOCOL; Start 11/05/19 at 23:45 Potassium Chloride/Water 100 ml @ 100 mls/hr PRN Q1HR PRN IV PER PROTOCOL; Start 11/05/19 at 23:45 Potassium Chloride/Water 100 ml @ 100 mls/hr PRN Q1HR PRN IV PER PROTOCOL; Start 11/06/19 at 00:01; Stop 11/06/19 at 07:44; Status DC Magnesium Sulfate 100 ml @ 50 mls/hr PRN DAILY PRN IV PER PROTOCOL; Start 11/06/19 at 00:00 Potassium Phos/ Sodium Phos (Phos-Nak) 1 pkt PRN BID PRN PO PER PROTOCOL; Start 11/06/19 at 09:00 Sodium Phosphate 40 mmol/Sodium Chloride 263.3333 ml @ 62.5 mls/hr 1X PRN PRN IV PER PROTOCOL; Start 11/05/19 at 23:45 Potassium Phosphate 13.6 mmol/Sodium Chloride 254.5333 ml @ 62.5 mls/hr PRN Q4HRS PRN IV PER PROTOCOL; Start 11/05/19 at 23:45 Magnesium Sulfate 50 ml @ 25 mls/hr 1X ONCE IV Last administered on 11/06/19at 00:31; Start 11/06/19 at 01:00; Stop 11/06/19 at 02:59; Status DC Metoprolol Tartrate (Lopressor Vial) 5 mg 1X ONCE IVP Last administered on 11/06/19at 01:52; Start 11/06/19 at 02:00; Stop 11/06/19 at 02:01; Status DC Miscellaneous (Lidoderm Patch Removal) 1 ea PRN QHS PRN MC SEE COMMENTS; Start 11/06/19 at 08:00 Metoprolol Tartrate (Lopressor Vial) 5 mg Q6HRS IVP Last administered on 11/07/19at 05:21; Start 11/06/19 at 12:00; Stop 11/07/19 at 11:59; Status DC Cyanocobalamin (Vitamin B-12) 1,000 mcg DAILY IM Last administered on 11/10/19at 08:30; Start 11/06/19 at 14:30 Furosemide (Lasix) 40 mg 1X ONCE IVP Last administered on 11/06/19at 17:35; Start 11/06/19 at 17:30; Stop 11/06/19 at 17:31; Status DC Amino Acids/ Glycerin/ Electrolytes 1,000 ml @ 80 mls/hr [id number] IV Last ad ministered on 11/10/19at 01:45; Start 11/07/19 at 10:15 Metoprolol Succinate (Toprol Xl) 50 mg DAILY PO Last administered on 11/10/19at 08:31; Start 11/08/19 at 09:00 Furosemide (Lasix) 40 mg DAILY PO Last administered on 11/10/19at 08:30; Start 11/08/19 at 09:00 Lactobacillus Rhamnosus (Culturelle) 1 cap BID PO Last administered on 11/10/19at 08:30; Start 11/07/19 at 21:00 Levetiracetam (Keppra) 500 mg BID PO Last administered on 11/10/19at 08:30; Start 11/07/19 at 21:00 Furosemide (Lasix) 40 mg 1X ONCE IVP Last administered on 11/07/19at 21:55; Start 11/07/19 at 21:45; Stop 11/07/19 at 21:46; Status DC Cyanocobalamin (Vitamin B-12) 1,000 mcg 1X ONCE IM ; Start 11/08/19 at 08:30; Stop 11/08/19 at 08:31; Status DC Potassium Chloride (Klor-Con) 40 meq 1X ONCE PO ; Start 11/08/19 at 09:30; Stop 11/08/19 at 09:31; Status Cancel Furosemide (Lasix) 40 mg 1X ONCE IVP Last administered on 11/08/19at 17:56; Start 11/08/19 at 09:30; Stop 11/08/19 at 09:33; Status DC Pantoprazole Sodium (Protonix) 40 mg DAILYAC PO Last administered on 11/10/19at 08:31; Start 11/09/19 at 07:30 Potassium Chloride (Klor-Con) 40 meq 1X ONCE PO Last administered on 11/08/19at 11:31; Start 11/08/19 at 10:45; Stop 11/08/19 at 10:46; Status DC Potassium Chloride (Klor-Con) 40 meq 1X ONCE PO Last administered on 11/08/19at 17:56; Start 11/08/19 at 12:30; Stop 11/08/19 at 12:31; Status DC Potassium Chloride (Klor-Con) 40 meq 1X ONCE PO ; Start 11/08/19 at 11:15; Stop 11/08/19 at 11:16; Status DC Sacubitril/ Valsartan (Entresto 24 Mg-26 Mg) 1 tab BID PO Last administered on 11/10/19at 08:30; Start 11/10/19 at 09:00 Active Scripts Active Reported Januvia (Sitagliptin Phosphate) 100 Mg Tablet 1 Tab PO DAILY Pantoprazole Sodium (Pantoprazole Sodium) 40 Mg Tablet. 20 Mg PO DAILYAC Glimepiride 1 Mg Tablet 1 Tab PO DAILY Hydrocodone-Apap 5-325 (Hydrocodone Bit/Acetaminophen) 1 Tab Tablet 1 Tab PO PRN Q6HRS PRN Lisinopril 10 Mg Tablet 1 Tab PO DAILY Acetaminophen 500 Mg Tablet 1 Tab PO BID Trazodone Hcl 50 Mg Tablet 0.5 Tab PO QHS Omeprazole 20 Mg Capsule.dr 1 Cap PO DAILY Novolog (Insulin Aspart) 100 Unit/1 Ml Cartridge 100 Unit SQ QIDACHS Naproxen 500 Mg Tablet 1 Tab PO PRN Q8HRS PRN Lidocaine PATCH (Lidocaine) 1 Each Adh..patch 1 Each TP DAILY REMOVE AFTER 12 HOURS Latanoprost 2.5 Ml Drops 1 Drop EACHEYE QHS Duoneb 0.5-3(2.5) Mg/3 Ml (Albuterol/Ipratropium) 3 Ml Ampul.neb 3 Ml NEB PRN Q4HRS PRN Imodium A-D (Loperamide HCl) 2 Mg Capsule 2 Mg PO PRN PRN Flonase Allergy Relief (Fluticasone Propionate) 9.9 Ml [place] [facility].susp 1 Sprays NS PRN Q12HRS PRN Coreg (Carvedilol) 3.125 Mg Tablet 3.125 Mg PO BIDWMEALS Chloraseptic (Phenol) 20 Ml [place] [employer] 1 [place] [employer] MM PRN Q6HRS PRN Calcium Citrate 250 Mg Tablet 500 Mg PO DAILY Tylenol (Acetaminophen) 325 Mg Tablet 2 Tab PO PRN Q6HRS PRN Atorvastatin Calcium 10 Mg Tablet 1 Tab PO QHS Proair Respiclick (Albuterol Sulfate) 90 Mcg Aer.pow.ba 1 Puff IH PRN Q6HRS PRN Alendronate Sodium 70 Mg Tablet 1 Tab PO WEEKLY Citalopram Hbr (Citalopram Hydrobromide) 10 Mg Tablet 1.5 Tab PO DAILY Cetirizine Hcl 10 Mg Tablet 1 Tab PO DAILY Guaifenesin 600 Mg Tablet.er 600 Mg PO PRN Q8HRS PRN Clopidogrel (Clopidogrel Bisulfate) 75 Mg Tablet 1 Tab PO DAILY Novolog Flexpen (Insulin Aspart) 100 Unit/1 Ml Insuln.pen 0-3 Unit SQ QIDACHS PATIENT SLIDING SCALE. 70-249= 0 UNITS. 250-400= 3UNITS. BEFORE MEALS AND AT BEDTIME GIVE 3 UNITS IF BLOOD SUGAR 250 OR ABOVE. Diclofenac Sodium 100 Gm Gel..gram. 1 Carlos TP DAILY D3-50 (Cholecalciferol (Vitamin D3)) 50,000 Unit Capsule 50,000 Unit PO DAILY Trazodone Hcl 50 Mg Tablet 0.5 Tab PO QHS Reglan (Metoclopramide Hcl) 5 Mg Tablet 5 Mg PO DAILY Protonix (Pantoprazole Sodium) 20 Mg Tablet.dr 1 Tab PO DAILY Mathews 5-325 Tablet (Hydrocodone Bit/Acetaminophen) 1 Each Tablet 1 Tab PO Q4HRS Naproxen 500 Mg Tablet 1 Tab PO Q8HRS Lisinopril 2.5 Mg Tablet 1 Tab PO DAILY Lidocaine PATCH (Lidocaine) 1 Each Adh..patch 1 Each TP DAILY REMOVE AFTER 12 HOURS Lasix (Furosemide) 20 Mg Tablet 1 Tab PO DAILY 30 Days Duoneb 0.5-3(2.5) Mg/3 Ml (Albuterol/Ipratropium) 3 Ml Ampul.neb 3 Ml NEB QID Imodium A-D (Loperamide HCl) 2 Mg Capsule 2 Mg PO DAILY Guaifenesin 400 Mg Tablet 400 Mg PO Q8HRS Coreg (Carvedilol) 3.125 Mg Tablet 3.125 Mg PO BID Clopidogrel (Clopidogrel Bisulfate) 75 Mg Tablet 75 Mg PO DAILY Citalopram Hbr (Citalopram Hydrobromide) 10 Mg Tablet 10 Mg PO DAILY Atorvastatin Calcium 10 Mg Tablet 10 Mg PO DAILY Proair Hfa Inhaler (Albuterol Sulfate) 8.5 Gm Hfa.aer.ad 1 Puff INH PRN Q6HRS Acetaminophen 500 Mg Tablet 1 Tab PO PRN Q6HRS Glimepiride 1 Mg Tablet 1 Mg PO DAILY Simvastatin 40 Mg Tablet 40 Mg PO HS Omeprazole 20 Mg Capsule.dr 20 Mg PO DAILY Januvia (Sitagliptin Phosphate) 100 Mg Tablet 100 Mg PO DAILY Vitals/I & O Vital Sign - Last 24 Hours 11/09/19 11/09/19 11/09/19 11/09/19 15:59 18:21 19:50 19:54 Temp 97.5 97.9 97.5 97.9 Pulse 73 80 Resp 20 20 B/P (MAP) 150/108 (122) 152/75 (100) Pulse Ox 92 94 97 O2 Delivery Nasal Cannula Nasal Cannula Nasal Cannula Bi-pap O2 Flow Rate 5.0 3.0 5.0 5.0 11/09/19 11/10/19 11/10/19 11/10/19 23:21 03:25 07:22 08:00 Temp 98.5 98.2 97.9 98.5 98.2 97.9 Pulse 73 89 88 Resp 18 16 21 B/P (MAP) 166/82 (110) 156/73 (100) 170/94 (119) Pulse Ox 96 96 92 O2 Delivery Nasal Cannula Nasal Cannula Bi-pap O2 Flow Rate 5.0 5.0 5.0 5.0 11/10/19 11/10/19 11/10/19 11/10/19 08:30 08:31 09:31 10:53 Temp 98.0 98.0 Pulse 88 88 90 Resp 20 B/P (MAP) 170/94 170/94 167/72 (103) Pulse Ox 95 93 O2 Delivery Nasal Cannula Nasal Cannula O2 Flow Rate 2.0 5.0 Intake and Output 11/09/19 11/09/19 11/10/19 15:00 23:00 07:00 Intake Total 250 ml 0 ml Output Total 500 ml 1350 ml Balance -250 ml -1350 ml Justicifation of Admission Dx: Justifications for Admission: Justification of Admission Dx: Yes Respiratory Failure: Mechanical Ventilation Altered Mental Status: Altered Mental Status Nutrition Consultation Dietary Evaluation: Recommendations by RD: Dietary education by RD Comments: REC continue with dysphagia I diet, thin liquids Expected Outcomes/Goals: to meet >75% of nutrition needs through PO intake Malnutrition Findings: Body Fat Depletion (Non Severe: Mild Depletion Weight Status: Overweight WALTER MCKEE MD Nov 10, 2019 13:30
[2019-11-10 15:10] VITALS: BP 174/84
[2019-11-10] MEDS: VANCOMYCIN 1 GM in IV NORMAL SALINE 250ML 250 ML IV SCH (17:00)
[2019-11-10 19:00] VITALS: BP 181/92
[2019-11-10] MEDS: LATANOPROST 0.005% OPHTH SOLUTION 2.5ML BOTTLE. OU SCH (21:20)
[2019-11-10] MEDS: ATORVASTATIN CALCIUM 10 MG TABLET. PO SCH (21:20)
[2019-11-10 23:00] VITALS: BP 194/96
[2019-11-11] VITALS (8 sets, daily range): BP systolic 146–193; BP diastolic 74–102
[2019-11-11] MEDS: PIPERACILLIN/TAZOBACTAM 3.375 GM in IV NORMAL SALINE 50ML 50 ML IV SCH ×5 (00:50→23:26)
[2019-11-11] MEDS: LABETALOL 20 MG/4 ML DISP.SYRIN. IVP PRN (00:51)
[2019-11-11] MEDS: METOPROLOL SUCC 24HR ER 50 MG TAB.ER.24H. PO SCH (08:25)
[2019-11-11] MEDS: CLOPIDOGREL BISULFATE 75 MG TABLET PO SCH (08:25)
[2019-11-11] MEDS: SACUBITRIL/VALSARTAN 24/26MG TABLET. PO SCH ×2 (08:25→20:34)
[2019-11-11] MEDS: PANTOPRAZOLE 40 MG TABLET.DR. PO SCH (08:25)
[2019-11-11] MEDS: levETIRAcetam 500 MG TABLET PO SCH ×2 (08:25→20:34)
[2019-11-11] MEDS: VANCOMYCIN PER PHARMACY MC PRN (09:21)
--- NOTE | 2019-11-11 09:53 | PDOC ---
PROGRESS NOTES Assessment She has been having hallucinations, suspect pre-existing dementia, keep in mind the possibility of PRES and side effects of levetiracetam Seizure, no evidence of recurrence Possible posterior reversible encephalopathy syndrome, no evidence of this clinically now Having a cardiac catheterization today (11/07) Medical issues: anemia, aspiration pneumonia, resolved respiratory failure, severe hypertension, hypokalemia (resolved), elevated troponin, elevated BNP, heart failure, ejection fraction 25%, paroxysmal torsades, sinus bradycardia, anemia, peripheral artery disease, pulmonary hypertension Cardiac cath canceled, awaiting plans for rescheduling Plan Levetiracetam Treatment of medical problems. Subjective No complaints, denies hallucinations currently Objective Vital Signs Date Time Temp Pulse Resp B/P (MAP) Pulse Ox O2 Delivery O2 Flow Rate FiO2 11/11/19 08:25 106 155/76 11/11/19 07:00 98.0 20 94 Nasal Cannula 6.0 98.0 Intake and Output 11/11/19 07:00 Intake Total 325 ml Output Total 1100 ml Balance -775 ml Intake Oral 325 ml Output Urine Total 1000 ml Stool Total 100 ml PHYSICAL EXAM Alert. Oriented to place and person, off on date. PERRL. EOMI. CN: no focal findings. Muscle tone: normal. Muscle strength: 5/5 DTR: 2+ Plantar reflex: flexor Gait: not examined in bed. Sensory exam: no abnormal findings. No cerebellar signs elicited. Review of Relevant I have reviewed the following items regina (where applicable) has been applied. Labs Laboratory Tests Test 11/09/19 11:16 11/09/19 17:14 11/10/19 04:45 11/10/19 07:40 Glucose (Fingerstick) 172 mg/dL (70-99) 174 mg/dL (70-99) 163 mg/dL (70-99) White Blood Count 13.0 x10^3/uL (4.0-11.0) Red Blood Count 2.75 x10^6/uL (3.50-5.40) Hemoglobin 8.3 g/dL (12.0-15.5) Hematocrit 24.5 % (36.0-47.0) Mean Corpuscular Volume 89 fL (79-100) Mean Corpuscular Hemoglobin 30 pg (25-35) Mean Corpuscular Hemoglobin Concent 34 g/dL (31-37) Red Cell Distribution Width 16.7 % (11.5-14.5) Platelet Count 418 x10^3/uL (140-400) Sodium Level 138 mmol/L (136-145) Potassium Level 4.0 mmol/L (3.5-5.1) Chloride Level 102 mmol/L (98-107) Carbon Dioxide Level 29 mmol/L (21-32) Anion Gap 7 (6-14) Blood Urea Nitrogen 33 mg/dL (7-20) Creatinine 1.2 mg/dL (0.6-1.0) Estimated GFR (Cockcroft-Gault) 43.2 BUN/Creatinine Ratio 28 (6-20) Glucose Level 176 mg/dL (70-99) Calcium Level 8.5 mg/dL (8.5-10.1) Total Bilirubin 0.9 mg/dL (0.2-1.0) Aspartate Amino Transf (AST/SGOT) 21 U/L (15-37) Alanine Aminotransferase (ALT/SGPT) 18 U/L (14-59) Alkaline Phosphatase 76 U/L (46-116) Total Protein 5.2 g/dL (6.4-8.2) Albumin 2.2 g/dL (3.4-5.0) Albumin/Globulin Ratio 0.7 (1.0-1.7) Test 11/10/19 11:43 11/10/19 16:35 11/10/19 21:18 11/11/19 08:08 Glucose (Fingerstick) 197 mg/dL (70-99) 212 mg/dL (70-99) 190 mg/dL (70-99) 228 mg/dL (70-99) Laboratory Tests Test 11/10/19 11:43 11/10/19 16:35 11/10/19 21:18 11/11/19 08:08 Glucose (Fingerstick) 197 mg/dL (70-99) 212 mg/dL (70-99) 190 mg/dL (70-99) 228 mg/dL (70-99) Medications Current Medications Fentanyl Citrate 30 ml @ 0 mls/hr CONT PRN IV SEE PROTOCOL; Start 11/02/19 at 02:45; Status Cancel Propofol 100 ml @ 0 mls/hr CONT PRN IV SEE PROTOCOL; Start 11/02/19 at 02:45; Status Cancel Fentanyl Citrate (Fentanyl 2ml Vial) 25 mcg PRN Q1HR PRN IV SEE COMMENTS; Start 11/02/19 at 02:45; Status Cancel Fentanyl Citrate (Fentanyl 2ml Vial) 50 mcg PRN Q1HR PRN IV SEE COMMENTS; Start 11/02/19 at 02:45; Status Cancel Chlorhexidine Gluconate (Peridex) 15 ml BID MM ; Start 11/02/19 at 09:00; Status Cancel Morphine Sulfate (Morphine Sulfate) 2 mg PRN Q1HR PRN IV SEE COMMENTS.; Start 11/02/19 at 02:45; Status Cancel Morphine Sulfate (Morphine Sulfate) 4 mg PRN Q1HR PRN IV SEE COMMENTS.; Start 11/02/19 at 02:45; Status Cancel Midazolam HCl 100 ml @ 0 mls/hr CONT PRN IV SEE PROTOCOL; Start 11/02/19 at 02:45; Status Cancel Diphenhydramine HCl (Benadryl) 25 mg PRN Q15MIN PRN IVP EPS Symptoms; Start 11/02/19 at 02:45; Status Cancel Nicardipine HCl 50 mg/Sodium Chloride 250 ml @ 25 mls/hr CONT PRN IV SEE I/O RECORD Last administered on 11/02/19at 16:45; Start 11/02/19 at 03:15 Propofol 100 ml @ As Directed STK-MED ONCE IV ; Start 11/02/19 at 02:49; Stop 11/02/19 at 03:22; Status DC Propofol 100 ml @ 0 mls/hr CONT PRN IV SEE PROTOCOL Last administered on 11/03/19at 11:18; Start 11/02/19 at 03:30; Stop 11/03/19 at 13:54; Status DC Fentanyl Citrate (Fentanyl 2ml Vial) 25 mcg PRN Q1HR PRN IV SEE COMMENTS; Start 11/02/19 at 03:30; Stop 11/06/19 at 10:08; Status DC Fentanyl Citrate (Fentanyl 2ml Vial) 50 mcg PRN Q1HR PRN IV SEE COMMENTS; Start 11/02/19 at 03:30; Stop 11/06/19 at 10:08; Status DC Chlorhexidine Gluconate (Peridex) 15 ml BID MM Last administered on 11/05/19at 08:54; Start 11/02/19 at 09:00; Stop 11/06/19 at 10:08; Status DC Famotidine (Pepcid Vial) 20 mg DAILY IVP Last administered on 11/07/19at 08:39; Start 11/02/19 at 09:00; Stop 11/08/19 at 09:56; Status DC Morphine Sulfate (Morphine Sulfate) 2 mg PRN Q1HR PRN IV SEE COMMENTS. Last administered on 11/04/19at 17:55; Start 11/02/19 at 03:30 Morphine Sulfate (Morphine Sulfate) 4 mg PRN Q1HR PRN IV SEE COMMENTS. Last administered on 11/07/19at 05:18; Start 11/02/19 at 03:30 Potassium Bicarbonate (Potassium Effervescent Tablet) 40 meq 1X ONCE PEG Last administered on 11/02/19at 08:38; Start 11/02/19 at 07:30; Stop 11/02/19 at 07:31; Status DC Potassium Bicarbonate (Potassium Effervescent Tablet) 40 meq 1X ONCE PEG Last administered on 11/02/19at 10:02; Start 11/02/19 at 08:00; Stop 11/02/19 at 08:01; Status DC Potassium Bicarbonate (Potassium Effervescent Tablet) 40 meq 1X ONCE PEG Last administered on 11/02/19at 10:41; Start 11/02/19 at 09:00; Stop 11/02/19 at 09:01; Status DC Magnesium Sulfate 50 ml @ 25 mls/hr 1X ONCE IV Last administered on 11/02/19at 08:37; Start 11/02/19 at 07:30; Stop 11/02/19 at 09:29; Status DC Famotidine (Pepcid Vial) 20 mg DAILY IVP ; Start 11/02/19 at 09:00; Status UNV Ceftriaxone Sodium (Rocephin) 1 gm Q24H IVP Last administered on 11/04/19at 08:46; Start 11/02/19 at 09:00; Stop 11/04/19 at 15:04; Status DC Levetiracetam 1000 mg/Dextrose 110 ml @ 440 mls/hr Q12HR IV Last administered on 11/03/19at 09:13; Start 11/02/19 at 11:00; Stop 11/03/19 at 09:32; Status DC Acetaminophen (Tylenol) 650 mg PRN Q6HRS PRN PO PAIN Last administered on 11/10/19 17:09; Start 11/02/19 at 10:15 Atorvastatin Calcium (Lipitor) 10 mg QHS PO Last administered on 11/10/19 21:20; Start 11/02/19 at 21:00 Carvedilol (Coreg) 3.125 mg BIDWMEALS PO Last administered on 11/03/19 08:02; Start 11/02/19 at 11:00; Stop 11/07/19 at 12:02; Status DC Cetirizine HCl (ZyrTEC) 10 mg DAILY PO Last administered on 11/10/19 08:31; Start 11/02/19 at 11:00 Citalopram Hydrobromide (CeleXA) 15 mg DAILY PO Last administered on 11/03/19 09:14; Start 11/02/19 at 11:00; Stop 11/03/19 at 13:50; Status DC Clopidogrel Bisulfate (Plavix) 75 mg DAILY PO Last administered on 11/05/19at 08:53; Start 11/02/19 at 11:00; Stop 11/05/19 at 15:30; Status DC Diclofenac Sodium (Voltaren) 1 carlos BID PRN TP BREAKTHROUGH PAIN; Start 11/02/19 at 10:15 Furosemide (Lasix) 20 mg QEVNG PO Last administered on 11/04/19at 17:54; Start 11/02/19 at 18:00; Stop 11/07/19 at 11:59; Status DC Furosemide (Lasix) 40 mg QAM PO Last administered on 11/05/19 08:54; Start 11/02/19 at 11:00; Stop 11/07/19 at 11:59; Status DC Albuterol Sulfate (Ventolin Neb Soln) 2.5 mg PRN Q4HRS PRN NEB SHORTNESS OF BREATH Last administered on 11/07/19 20:16; Start 11/02/19 at 10:30 Latanoprost (Xalatan) 1 drop QHS OU Last administered on 11/10/19at 21:20; Start 11/02/19 at 21:00 Lidocaine (Lidoderm) 1 patch PRN DAILY PRN TP PAIN; Start 11/02/19 at 09:00 Pantoprazole Sodium (Protonix) 20 mg DAILYAC PO ; Start 11/03/19 at 07:30; Status UNV Phenol (Chloraseptic) 1 spray PRN Q6HRS PRN MM SORE THROAT; Start 11/02/19 at 10:15 Piperacillin Sod/ Tazobactam Sod 3.375 gm/Sodium Chloride 50 ml @ 100 mls/hr Q6HRS IV Last administered on 11/11/19at 06:49; Start 11/02/19 at 11:00 Vancomycin HCl (Vanco Per Pharmacy) 1 each PRN DAILY PRN MC SEE COMMENTS Last administered on 11/11/19at 09:21; Start 11/02/19 at 10:30 Vancomycin HCl 1 gm/Sodium Chloride 250 ml @ 250 mls/hr Q24H IV Last administered on 11/03/19at 22:57; Start 11/02/19 at 22:00; Stop 11/04/19 at 07:00; Status DC Vancomycin HCl (Vancomycin Trough Level) 1 each 1X ONCE MC Last administered on 11/03/19at 21:30; Start 11/03/19 at 21:30; Stop 11/03/19 at 21:31; Status DC Levetiracetam 500 mg/Dextrose 105 ml @ 420 mls/hr Q12HR IV Last administered on 11/07/19at 08:38; Start 11/03/19 at 21:00; Stop 11/07/19 at 13:16; Status DC Magnesium Sulfate 50 ml @ 25 mls/hr 1X ONCE IV Last administered on 11/03/19at 13:33; Start 11/03/19 at 12:00; Stop 11/03/19 at 13:59; Status DC Sertraline HCl (Zoloft) 50 mg DAILY PO Last administered on 11/10/19at 08:31; Start 11/04/19 at 09:00 Losartan Potassium (Cozaar) 25 mg DAILY NG Last administered on 11/05/19at 08:54; Start 11/03/19 at 14:00; Stop 11/05/19 at 09:40; Status DC Dexmedetomidine HCl 400 mcg/ Sodium Chloride 100 ml @ 0 mls/hr CONT PRN IV PER PROTOCOL Last administered on 11/05/19at 02:05; Start 11/03/19 at 14:00; Stop 11/06/19 at 10:08; Status DC Sodium Chloride 500 ml @ 500 mls/hr 1X PRN PRN IV SEE COMMENTS; Start 11/03/19 at 14:00 Atropine Sulfate (ATROPINE 0.5mg SYRINGE) 0.5 mg PRN Q5MIN PRN IV SEE COMMENTS; Start 11/03/19 at 14:00; Stop 11/07/19 at 12:28; Status DC Vancomycin HCl 1 gm/Sodium Chloride 250 ml @ 250 mls/hr Q18H IV Last administered on 11/10/19at 17:00; Start 11/04/19 at 17:00 Vancomycin HCl (Vancomycin Trough Level) 1 each 1X ONCE MC Last administered on 11/06/19at 04:30; Start 11/06/19 at 04:30; Stop 11/06/19 at 04:31; Status DC Losartan Potassium (Cozaar) 50 mg DAILY NG Last administered on 11/08/19at 11:05; Start 11/05/19 at 09:45; Stop 11/08/19 at 14:57; Status DC Epinephrine (S2 Racepinephrine) 0.5 ml 1X ONCE NEB Last administered on 11/05/19at 12:00; Start 11/05/19 at 12:00; Stop 11/05/19 at 12:01; Status DC Methylprednisolone Sodium Succinate (SOLU-Medrol 125MG VIAL) 100 mg 1X ONCE IV Last administered on 11/05/19at 12:15; Start 11/05/19 at 12:00; Stop 11/05/19 at 12:01; Status DC Furosemide (Lasix) 20 mg 1X STAT IVP Last administered on 11/05/19at 12:14; Start 11/05/19 at 12:08; Stop 11/05/19 at 12:12; Status DC Furosemide (Lasix) 20 mg 1X ONCE IVP Last administered on 11/05/19at 14:26; Start 11/05/19 at 14:15; Stop 11/05/19 at 14:16; Status DC Clopidogrel Bisulfate (Plavix) 75 mg DAILY PO Last administered on 11/11/19at 08:25; Start 11/07/19 at 11:00 Metoprolol Tartrate (Lopressor Vial) 5 mg ONCE ONCE IVP Last administered on 11/05/19at 23:56; Start 11/06/19 at 00:00; Stop 11/06/19 at 00:01; Status DC Potassium Chloride (Klor-Con) 40 meq 1X PRN PRN PO PER PROTOCOL; Start 11/05/19 at 23:45 Potassium Bicarbonate (Potassium Effervescent Tablet) 40 meq 1X PRN PRN PO PER PROTOCOL; Start 11/05/19 at 23:45 Potassium Chloride/Water 100 ml @ 100 mls/hr PRN Q1HR PRN IV PER PROTOCOL Last administered on 11/06/19at 06:03; Start 11/05/19 at 23:45; Stop 11/06/19 at 06:11; Status DC Potassium Chloride/Water 100 ml @ 100 mls/hr PRN Q1HR PRN IV PER PROTOCOL; Start 11/05/19 at 23:45 Potassium Chloride (Klor-Con) 40 meq PRN Q2HRS PRN PO PER PROTOCOL; Start 11/05/19 at 23:45 Potassium Chloride/Water 100 ml @ 100 mls/hr PRN Q1HR PRN IV PER PROTOCOL; Start 11/05/19 at 23:45 Potassium Chloride/Water 100 ml @ 100 mls/hr PRN Q1HR PRN IV PER PROTOCOL; Start 11/05/19 at 23:45; Stop 11/06/19 at 07:44; Status DC Potassium Chloride (Klor-Con) 40 meq PRN Q2HRS PRN PO PER PROTOCOL; Start 11/05/19 at 23:45 Potassium Chloride/Water 100 ml @ 100 mls/hr PRN Q1HR PRN IV PER PROTOCOL; Start 11/05/19 at 23:45 Potassium Chloride/Water 100 ml @ 100 mls/hr PRN Q1HR PRN IV PER PROTOCOL; Start 11/06/19 at 00:01; Stop 11/06/19 at 07:44; Status DC Magnesium Sulfate 100 ml @ 50 mls/hr PRN DAILY PRN IV PER PROTOCOL; Start 11/06/19 at 00:00 Potassium Phos/ Sodium Phos (Phos-Nak) 1 pkt PRN BID PRN PO PER PROTOCOL; Start 11/06/19 at 09:00 Sodium Phosphate 40 mmol/Sodium Chloride 263.3333 ml @ 62.5 mls/hr 1X PRN PRN IV PER PROTOCOL; Start 11/05/19 at 23:45 Potassium Phosphate 13.6 mmol/Sodium Chloride 254.5333 ml @ 62.5 mls/hr PRN Q4HRS PRN IV PER PROTOCOL; Start 11/05/19 at 23:45 Magnesium Sulfate 50 ml @ 25 mls/hr 1X ONCE IV Last administered on 11/06/19at 00:31; Start 11/06/19 at 01:00; Stop 11/06/19 at 02:59; Status DC Metoprolol Tartrate (Lopressor Vial) 5 mg 1X ONCE IVP Last administered on 11/06/19at 01:52; Start 11/06/19 at 02:00; Stop 11/06/19 at 02:01; Status DC Miscellaneous (Lidoderm Patch Removal) 1 ea PRN QHS PRN MC SEE COMMENTS; Start 11/06/19 at 08:00 Metoprolol Tartrate (Lopressor Vial) 5 mg Q6HRS IVP Last administered on 11/07/19at 05:21; Start 11/06/19 at 12:00; Stop 11/07/19 at 11:59; Status DC Cyanocobalamin (Vitamin B-12) 1,000 mcg DAILY IM Last administered on 11/10/19at 08:30; Start 11/06/19 at 14:30 Furosemide (Lasix) 40 mg 1X ONCE IVP Last administered on 11/06/19at 17:35; Start 11/06/19 at 17:30; Stop 11/06/19 at 17:31; Status DC Amino Acids/ Glycerin/ Electrolytes 1,000 ml @ 80 mls/hr [id number] IV Last administered on 11/10/19at 21:20; Start 11/07/19 at 10:15 Metoprolol Succinate (Toprol Xl) 50 mg DAILY PO Last administered on 11/11/19at 08:25; Start 11/08/19 at 09:00 Furosemide (Lasix) 40 mg DAILY PO Last administered on 11/10/19at 08:30; Start 11/08/19 at 09:00 Lactobacillus Rhamnosus (Culturelle) 1 cap BID PO Last administered on 11/10/19at 21:20; Start 11/07/19 at 21:00 Levetiracetam (Keppra) 500 mg BID PO Last administered on 11/11/19at 08:25; Start 11/07/19 at 21:00 Furosemide (Lasix) 40 mg 1X ONCE IVP Last administered on 11/07/19at 21:55; Start 11/07/19 at 21:45; Stop 11/07/19 at 21:46; Status DC Cyanocobalamin (Vitamin B-12) 1,000 mcg 1X ONCE IM ; Start 11/08/19 at 08:30; Stop 11/08/19 at 08:31; Status DC Potassium Chloride (Klor-Con) 40 meq 1X ONCE PO ; Start 11/08/19 at 09:30; Stop 11/08/19 at 09:31; Status Cancel Furosemide (Lasix) 40 mg 1X ONCE IVP Last administered on 11/08/19at 17:56; Start 11/08/19 at 09:30; Stop 11/08/19 at 09:33; Status DC Pantoprazole Sodium (Protonix) 40 mg DAILYAC PO Last administered on 11/11/19at 08:25; Start 11/09/19 at 07:30 Potassium Chloride (Klor-Con) 40 meq 1X ONCE PO Last administered on 11/08/19at 11:31; Start 11/08/19 at 10:45; Stop 11/08/19 at 10:46; Status DC Potassium Chloride (Klor-Con) 40 meq 1X ONCE PO Last administered on 11/08/19at 17:56; Start 11/08/19 at 12:30; Stop 11/08/19 at 12:31; Status DC Potassium Chloride (Klor-Con) 40 meq 1X ONCE PO ; Start 11/08/19 at 11:15; Stop 11/08/19 at 11:16; Status DC Sacubitril/ Valsartan (Entresto 24 Mg-26 Mg) 1 tab BID PO Last administered on 11/11/19at 08:25; Start 11/10/19 at 09:00 Labetalol HCl (Normodyne Iv Push) 20 mg PRN Q2HR PRN IVP HYPERTENSION Last administered on 11/11/19at 00:51; Start 11/11/19 at 00:30 Vancomycin HCl (Vancomycin Trough Level) 1 each 1X ONCE MC ; Start 11/12/19 at 04:30; Stop 11/12/19 at 04:31 Active Scripts Active Reported Januvia (Sitagliptin Phosphate) 100 Mg Tablet 1 Tab PO DAILY Pantoprazole Sodium (Pantoprazole Sodium) 40 Mg Tablet.dr 20 Mg PO DAILYAC Glimepiride 1 Mg Tablet 1 Tab PO DAILY Hydrocodone-Apap 5-325 (Hydrocodone Bit/Acetaminophen) 1 Tab Tablet 1 Tab PO PRN Q6HRS PRN Lisinopril 10 Mg Tablet 1 Tab PO DAILY Acetaminophen 500 Mg Tablet 1 Tab PO BID Trazodone Hcl 50 Mg Tablet 0.5 Tab PO QHS Omeprazole 20 Mg Capsule.dr 1 Cap PO DAILY Novolog (Insulin Aspart) 100 Unit/1 Ml Cartridge 100 Unit SQ QIDACHS Naproxen 500 Mg Tablet 1 Tab PO PRN Q8HRS PRN Lidocaine PATCH (Lidocaine) 1 Each Adh..patch 1 Each TP DAILY REMOVE AFTER 12 HOURS Latanoprost 2.5 Ml Drops 1 Drop EACHEYE QHS Duoneb 0.5-3(2.5) Mg/3 Ml (Albuterol/Ipratropium) 3 Ml Ampul.neb 3 Ml NEB PRN Q4HRS PRN Imodium A-D (Loperamide HCl) 2 Mg Capsule 2 Mg PO PRN PRN Flonase Allergy Relief (Fluticasone Propionate) 9.9 Ml [place].susp 1 Sprays NS PRN Q12HRS PRN Coreg (Carvedilol) 3.125 Mg Tablet 3.125 Mg PO BIDWMEALS Chloraseptic (Phenol) 20 Ml [place] 1 [place] MM PRN Q6HRS PRN Calcium Citrate 250 Mg Tablet 500 Mg PO DAILY Tylenol (Acetaminophen) 325 Mg Tablet 2 Tab PO PRN Q6HRS PRN Atorvastatin Calcium 10 Mg Tablet 1 Tab PO QHS Proair Respiclick (Albuterol Sulfate) 90 Mcg Aer.pow.ba 1 Puff IH PRN Q6HRS PRN Alendronate Sodium 70 Mg Tablet 1 Tab PO WEEKLY Citalopram Hbr (Citalopram Hydrobromide) 10 Mg Tablet 1.5 Tab PO DAILY Cetirizine Hcl 10 Mg Tablet 1 Tab PO DAILY Guaifenesin 600 Mg Tablet.er 600 Mg PO PRN Q8HRS PRN Clopidogrel (Clopidogrel Bisulfate) 75 Mg Tablet 1 Tab PO DAILY Novolog Flexpen (Insulin Aspart) 100 Unit/1 Ml Insuln.pen 0-3 Unit SQ QIDACHS PATIENT SLIDING SCALE. 70-249= 0 UNITS. 250-400= 3UNITS. BEFORE MEALS AND AT BEDTIME GIVE 3 UNITS IF BLOOD SUGAR 250 OR ABOVE. Diclofenac Sodium 100 Gm Gel..gram. 1 Carlos TP DAILY D3-50 (Cholecalciferol (Vitamin D3)) 50,000 Unit Capsule 50,000 Unit PO DAILY Trazodone Hcl 50 Mg Tablet 0.5 Tab PO QHS Reglan (Metoclopramide Hcl) 5 Mg Tablet 5 Mg PO DAILY Protonix (Pantoprazole Sodium) 20 Mg Tablet.dr 1 Tab PO DAILY Flanagan 5-325 Tablet (Hydrocodone Bit/Acetaminophen) 1 Each Tablet 1 Tab PO Q4HRS Naproxen 500 Mg Tablet 1 Tab PO Q8HRS Lisinopril 2.5 Mg Tablet 1 Tab PO DAILY Lidocaine PATCH (Lidocaine) 1 Each Adh..patch 1 Each TP DAILY REMOVE AFTER 12 HOURS Lasix (Furosemide) 20 Mg Tablet 1 Tab PO DAILY 30 Days Duoneb 0.5-3(2.5) Mg/3 Ml (Albuterol/Ipratropium) 3 Ml Ampul.neb 3 Ml NEB QID Imodium A-D (Loperamide HCl) 2 Mg Capsule 2 Mg PO DAILY Guaifenesin 400 Mg Tablet 400 Mg PO Q8HRS Coreg (Carvedilol) 3.125 Mg Tablet 3.125 Mg PO BID Clopidogrel (Clopidogrel Bisulfate) 75 Mg Tablet 75 Mg PO DAILY Citalopram Hbr (Citalopram Hydrobromide) 10 Mg Tablet 10 Mg PO DAILY Atorvastatin Calcium 10 Mg Tablet 10 Mg PO DAILY Proair Hfa Inhaler (Albuterol Sulfate) 8.5 Gm Hfa.aer.ad 1 Puff INH PRN Q6HRS Acetaminophen 500 Mg Tablet 1 Tab PO PRN Q6HRS Glimepiride 1 Mg Tablet 1 Mg PO DAILY Simvastatin 40 Mg Tablet 40 Mg PO HS Omeprazole 20 Mg Capsule.dr 20 Mg PO DAILY Januvia (Sitagliptin Phosphate) 100 Mg Tablet 100 Mg PO DAILY Vitals/I & O Vital Sign - Last 24 Hours 11/10/19 11/10/19 11/10/19 11/10/19 10:53 15:10 19:00 20:00 Temp 98.0 98.0 97.7 98.0 98.0 97.7 Pulse 90 98 100 Resp 20 19 22 B/P (MAP) 167/72 (103) 174/84 (114) 181/92 (121) Pulse Ox 93 91 92 O2 Delivery Nasal Cannula Nasal Cannula Nasal Cannula Bi-pap O2 Flow Rate 5.0 5.0 6.0 6.0 11/10/19 11/10/19 11/11/19 11/11/19 21:20 23:00 00:51 01:03 Temp 97.9 97.9 Pulse 99 99 Resp 20 B/P (MAP) 181/92 194/96 (128) 194/96 165/85 (111) Pulse Ox 91 O2 Delivery Nasal Cannula O2 Flow Rate 6.0 11/11/19 11/11/19 11/11/19 11/11/19 03:06 07:00 08:25 08:25 Temp 98.3 98.0 98.3 98.0 Pulse 95 106 106 106 Resp 20 20 B/P (MAP) 175/91 (119) 155/76 (102) 155/76 155/76 Pulse Ox 93 94 O2 Delivery Nasal Cannula Nasal Cannula O2 Flow Rate 6.0 6.0 Intake and Output 11/10/19 11/10/19 11/11/19 15:00 23:00 07:00 Intake Total 300 ml 25 ml Output Total 700 ml 400 ml Balance -400 ml -375 ml Justicifation of Admission Dx: Justifications for Admission: Justification of Admission Dx: Yes Respiratory Failure: Mechanical Ventilation Altered Mental Status: Altered Mental Status FERNANDO TOSCANO MD Nov 11, 2019 09:53
--- NOTE | 2019-11-11 09:53 | PDOC ---
Subjective: Subjective: Denies pain. "I'm not hungry right now." Objective: Objective: Reviewed chart - cath today? D/w nurse - no bleeding, has rectal tube, doesn't have an appetite, confused. Vital Signs: Vital Signs Date Time Temp Pulse Resp B/P (MAP) Pulse Ox O2 Delivery O2 Flow Rate FiO2 11/11/19 08:25 106 155/76 11/11/19 07:00 98.0 20 94 Nasal Cannula 6.0 98.0 Labs: Laboratory Tests Test 11/10/19 11:43 11/10/19 16:35 11/10/19 21:18 11/11/19 08:08 Glucose (Fingerstick) 197 mg/dL 212 mg/dL 190 mg/dL 228 mg/dL PE: GEN: NAD LUNGS: clear anteriorly HEART: mildly tachycardic ABD: S/ND/NT, rectal tube w/ watery dark green/brown stool SKIN: pale NEURO/PSYCH: pleasantly confused A/P: Resp failure, CHF, encephalopathy/dementia Leukocytosis Normocytic anemia - ACD/B12 deficient - transfused 1 unit pRBCs 11/07 Decreased appetite Diarrhea -- Continue per cardiology. Check C Diff for completeness. 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 Consider abd x-ray. Justicifation of Admission Dx: Justifications for Admission: Justification of Admission Dx: Yes Respiratory Failure: Mechanical Ventilation Altered Mental Status: Altered Mental Status MARKOS PATINO Nov 11, 2019 09:53
[2019-11-11] MEDS: SERTRALINE 50 MG TABLET. PO SCH (10:51)
[2019-11-11] MEDS: VANCOMYCIN 1 GM in IV NORMAL SALINE 250ML 250 ML IV SCH (10:51)
[2019-11-11] MEDS: FUROSEMIDE 40 MG TABLET. PO SCH (10:51)
[2019-11-11] MEDS: CETIRIZINE HCL 10 MG TABLET. PO SCH (10:51)
[2019-11-11] MEDS: LACTOBACILLUS RHAMNOSUS GG 1 CAPSULE. PO SCH ×2 (10:51→20:34)
[2019-11-11] MEDS: CYANOCOBALAMIN (VITAMIN B-12) 1,000 MCG/ML VIAL IM SCH (10:54)
[2019-11-11] MEDS: AMINO AC 3%/ELECTROLYTE/GLYCER 1,000 ML IV SCH (10:54)
--- NOTE | 2019-11-11 11:26 | PN ---
DATE: 11/11/2019 SUBJECTIVE: The patient is resting, slightly propped up in bed, in no apparent distress. She is awake, alert, very confused. She is refusing to go on BiPAP. She is on 6 liters of oxygen; however, her oral intake is extremely poor. She continues to be on IV antibiotic as well as PPN. PHYSICAL EXAMINATION: GENERAL: When I examined her, she was pale, no jaundice, cyanosis or thyromegaly. No jugular venous distention. No lower limb edema. VITAL SIGNS: Her heart rate was 106, blood pressure was 155/76, temperature was 98, respiratory rate 20 and oxygen saturation was 94% on 6 liters of oxygen. HEAD, EYES, EARS, NOSE AND THROAT: Showed normocephalic, atraumatic. NECK: Supple. CARDIAC: Normal first and second heart sounds. No gallop, rub or murmur. CHEST: Clear to auscultation. No crepitation or rhonchi. ABDOMEN: Distended, soft, nontender. NEUROLOGIC: She is awake, alert, but very confused. All her cranial nerves intact. She moves extremities without difficulty, although she is mostly bedbound. Her intake was 325, output was 1100. LABORATORY DATA: As of this morning, her white cell count was 13,000; hemoglobin 8.3; hematocrit 24; MCV 89 and platelet count of 418,000. Her blood sugar seems to be well controlled. As of yesterday, her serum sodium was 138, potassium 4, chloride 102, bicarbonate 29, anion gap of 7, BUN 33, creatinine 1.2, estimated GFR was 43 mL per minute. Her glucose 176, calcium was 8.5. Total bilirubin, AST, ALT, alkaline phosphatase were normal. Total protein 5.2, albumin was 2.2. ASSESSMENT: 1. Acute respiratory failure secondary to aspiration pneumonia for which she was intubated, mechanically ventilated; however, she was successfully extubated on 11/05/2019. 2. Flash pulmonary edema due to accelerated hypertension, post-extubation improved. 3. Accelerated hypertension for which she was on Cardene drip. She is now on metoprolol succinate 50 mg once a day. 4. New onset tonic-clonic seizure for which she is on Keppra 500 mg p.o. twice a day. No further episode of seizures documented. 5. Hypokalemia, resolved. Her most recent serum potassium was 4.9. 6. Mildly elevated troponin, felt to be likely demand ischemia. 7. Acute on chronic systolic congestive heart failure. Her left ventricular systolic function is severely impaired, ejection fraction of only 25%. 8. Anemia without any obvious site of bleeding. In particular, no hematuria, melena or hematochezia. 9. Her MRI showed signal abnormality within the posterior temporoparietal and occipital subcortical white matter that may represent posterior reversible encephalopathy syndrome. 10. Severe protein-calorie malnutrition, serum albumin is only 2.2. PLAN: The plan is obviously to continue with PPN. Continue with metoprolol for high blood pressure. Continue with Keppra for seizures. Continue with furosemide for acute on chronic systolic congestive heart failure. Continue with Zosyn and vancomycin. I have already spoken with the clinical case manager and also meteorologist liaison at [facility] and she qualifies, we will discharge her to [facility] to continue with BiPAP and oxygen supplementation. Continue with nutritional support, Keppra for seizures and IV antibiotics. FINESSE GEORGES MD DR: IRISH/shubham JOB#: [id number] / [id number]
--- NOTE | 2019-11-11 12:15 | PDOC ---
PROGRESS NOTES Subjective Subjective Patient seen and examined Objective Objective Vital Signs Date Time Temp Pulse Resp B/P (MAP) Pulse Ox O2 Delivery O2 Flow Rate FiO2 11/11/19 10:51 97.7 95 20 167/102 (123) 94 Nasal Cannula 6.0 97.7 Intake and Output 11/11/19 07:00 Intake Total 325 ml Output Total 1100 ml Balance -775 ml Intake Oral 325 ml Output Urine Total 1000 ml Stool Total 100 ml Physical Exam Abdomen: Normal bowel sounds Heart: Regular rate General: mild distress Lungs: Other (Mildly decreased breath sounds) Assessment Assessment Accelerated hypertension: controlled New onset seizure disorder with encephalopathy: on keppra per neurology. Acute respiratory failure, multifactorial: s/p intubation, treat per pulmonary team. COVID test negative . She looks and feels better today. Acute on chronic diastolic/systolic heart failure: Decreased ejection fraction at 25%. Heart catheterization postponed due to drop in hemoglobin/ hematocrit requiring transfusions that now has improved. At noon today we are still awaiting morning CBC results. We will continue present treatments and monitor. Will discuss with Dr. To regarding possible cardiac catheterization and timing of it. Will need pretreatment for reported iodine allergy . Mild troponin elevation: multifactorial Paroxysmal Torsades: none further after BB initiation Hx of LE PAD: on plavix with past stenting in 2017 Cardiomyopathy: EF at 25% Continuing medical treatment. Moderate to severe TR Severe Pulmonary HTN: PAP 83 mmhg Comment Review of Relevant I have reviewed the following items regina (where applicable) has been applied. Labs Laboratory Tests Test 11/09/19 17:14 11/10/19 04:45 11/10/19 07:40 11/10/19 11:43 Glucose (Fingerstick) 174 mg/dL (70-99) 163 mg/dL (70-99) 197 mg/dL (70-99) White Blood Count 13.0 x10^3/uL (4.0-11.0) Red Blood Count 2.75 x10^6/uL (3.50-5.40) Hemoglobin 8.3 g/dL (12.0-15.5) Hematocrit 24.5 % (36.0-47.0) Mean Corpuscular Volume 89 fL (79-100) Mean Corpuscular Hemoglobin 30 pg (25-35) Mean Corpuscular Hemoglobin Concent 34 g/dL (31-37) Red Cell Distribution Width 16.7 % (11.5-14.5) Platelet Count 418 x10^3/uL (140-400) Sodium Level 138 mmol/L (136-145) Potassium Level 4.0 mmol/L (3.5-5.1) Chloride Level 102 mmol/L (98-107) Carbon Dioxide Level 29 mmol/L (21-32) Anion Gap 7 (6-14) Blood Urea Nitrogen 33 mg/dL (7-20) Creatinine 1.2 mg/dL (0.6-1.0) Estimated GFR (Cockcroft-Gault) 43.2 BUN/Creatinine Ratio 28 (6-20) Glucose Level 176 mg/dL (70-99) Calcium Level 8.5 mg/dL (8.5-10.1) Total Bilirubin 0.9 mg/dL (0.2-1.0) Aspartate Amino Transf (AST/SGOT) 21 U/L (15-37) Alanine Aminotransferase (ALT/SGPT) 18 U/L (14-59) Alkaline Phosphatase 76 U/L (46-116) Total Protein 5.2 g/dL (6.4-8.2) Albumin 2.2 g/dL (3.4-5.0) Albumin/Globulin Ratio 0.7 (1.0-1.7) Test 11/10/19 16:35 11/10/19 21:18 11/11/19 08:08 11/11/19 11:47 Glucose (Fingerstick) 212 mg/dL (70-99) 190 mg/dL (70-99) 228 mg/dL (70-99) 218 mg/dL (70-99) Laboratory Tests Test 11/10/19 16:35 11/10/19 21:18 11/11/19 08:08 11/11/19 11:47 Glucose (Fingerstick) 212 mg/dL (70-99) 190 mg/dL (70-99) 228 mg/dL (70-99) 218 mg/dL (70-99) Medications Current Medications Fentanyl Citrate 30 ml @ 0 mls/hr CONT PRN IV SEE PROTOCOL; Start 11/02/19 at 02:45; Status Cancel Propofol 100 ml @ 0 mls/hr CONT PRN IV SEE PROTOCOL; Start 11/02/19 at 02:45; Status Cancel Fentanyl Citrate (Fentanyl 2ml Vial) 25 mcg PRN Q1HR PRN IV SEE COMMENTS; Start 11/02/19 at 02:45; Status Cancel Fentanyl Citrate (Fentanyl 2ml Vial) 50 mcg PRN Q1HR PRN IV SEE COMMENTS; Start 11/02/19 at 02:45; Status Cancel Chlorhexidine Gluconate (Peridex) 15 ml BID MM ; Start 11/02/19 at 09:00; Status Cancel Morphine Sulfate (Morphine Sulfate) 2 mg PRN Q1HR PRN IV SEE COMMENTS.; Start 11/02/19 at 02:45; Status Cancel Morphine Sulfate (Morphine Sulfate) 4 mg PRN Q1HR PRN IV SEE COMMENTS.; Start 11/02/19 at 02:45; Status Cancel Midazolam HCl 100 ml @ 0 mls/hr CONT PRN IV SEE PROTOCOL; Start 11/02/19 at 02:45; Status Cancel Diphenhydramine HCl (Benadryl) 25 mg PRN Q15MIN PRN IVP EPS Symptoms; Start 11/02/19 at 02:45; Status Cancel Nicardipine HCl 50 mg/Sodium Chloride 250 ml @ 25 mls/hr CONT PRN IV SEE I/O RECORD Last administered on 11/02/19at 16:45; Start 11/02/19 at 03:15 Propofol 100 ml @ As Directed STK-MED ONCE IV ; Start 11/02/19 at 02:49; Stop 11/02/19 at 03:22; Status DC Propofol 100 ml @ 0 mls/hr CONT PRN IV SEE PROTOCOL Last administered on 11/03/19at 11:18; Start 11/02/19 at 03:30; Stop 11/03/19 at 13:54; Status DC Fentanyl Citrate (Fentanyl 2ml Vial) 25 mcg PRN Q1HR PRN IV SEE COMMENTS; Start 11/02/19 at 03:30; Stop 11/06/19 at 10:08; Status DC Fentanyl Citrate (Fentanyl 2ml Vial) 50 mcg PRN Q1HR PRN IV SEE COMMENTS; Start 11/02/19 at 03:30; Stop 11/06/19 at 10:08; Status DC Chlorhexidine Gluconate (Peridex) 15 ml BID MM Last administered on 11/05/19at 08:54; Start 11/02/19 at 09:00; Stop 11/06/19 at 10:08; Status DC Famotidine (Pepcid Vial) 20 mg DAILY IVP Last administered on 11/07/19 08:39; Start 11/02/19 at 09:00; Stop 11/08/19 at 09:56; Status DC Morphine Sulfate (Morphine Sulfate) 2 mg PRN Q1HR PRN IV SEE COMMENTS. Last administered on 11/04/19at 17:55; Start 11/02/19 at 03:30 Morphine Sulfate (Morphine Sulfate) 4 mg PRN Q1HR PRN IV SEE COMMENTS. Last administered on 11/07/19 05:18; Start 11/02/19 at 03:30 Potassium Bicarbonate (Potassium Effervescent Tablet) 40 meq 1X ONCE PEG Last administered on 11/02/19 08:38; Start 11/02/19 at 07:30; Stop 11/02/19 at 07:31; Status DC Potassium Bicarbonate (Potassium Effervescent Tablet) 40 meq 1X ONCE PEG Last administered on 11/02/19at 10:02; Start 11/02/19 at 08:00; Stop 11/02/19 at 08:01; Status DC Potassium Bicarbonate (Potassium Effervescent Tablet) 40 meq 1X ONCE PEG Last administered on 11/02/19at 10:41; Start 11/02/19 at 09:00; Stop 11/02/19 at 09:01; Status DC Magnesium Sulfate 50 ml @ 25 mls/hr 1X ONCE IV Last administered on 11/02/19at 08:37; Start 11/02/19 at 07:30; Stop 11/02/19 at 09:29; Status DC Famotidine (Pepcid Vial) 20 mg DAILY IVP ; Start 11/02/19 at 09:00; Status UNV Ceftriaxone Sodium (Rocephin) 1 gm Q24H IVP Last administered on 11/04/19 08:46; Start 11/02/19 at 09:00; Stop 11/04/19 at 15:04; Status DC Levetiracetam 1000 mg/Dextrose 110 ml @ 440 mls/hr Q12HR IV Last administered on 11/03/19 09:13; Start 11/02/19 at 11:00; Stop 11/03/19 at 09:32; Status DC Acetaminophen (Tylenol) 650 mg PRN Q6HRS PRN PO PAIN Last administered on 11/10/19 17:09; Start 11/02/19 at 10:15 Atorvastatin Calcium (Lipitor) 10 mg QHS PO Last administered on 11/10/19 21:20; Start 11/02/19 at 21:00 Carvedilol (Coreg) 3.125 mg BIDWMEALS PO Last administered on 11/03/19 08:02; Start 11/02/19 at 11:00; Stop 11/07/19 at 12:02; Status DC Cetirizine HCl (ZyrTEC) 10 mg DAILY PO Last administered on 11/11/19 10:51; Start 11/02/19 at 11:00 Citalopram Hydrobromide (CeleXA) 15 mg DAILY PO Last administered on 11/03/19 09:14; Start 11/02/19 at 11:00; Stop 11/03/19 at 13:50; Status DC Clopidogrel Bisulfate (Plavix) 75 mg DAILY PO Last administered on 11/05/19 08:53; Start 11/02/19 at 11:00; Stop 11/05/19 at 15:30; Status DC Diclofenac Sodium (Voltaren) 1 carlos BID PRN TP BREAKTHROUGH PAIN; Start 11/02/19 at 10:15 Furosemide (Lasix) 20 mg QEVNG PO Last administered on 11/04/19at 17:54; Start 11/02/19 at 18:00; Stop 11/07/19 at 11:59; Status DC Furosemide (Lasix) 40 mg QAM PO Last administered on 11/05/19 08:54; Start 11/02/19 at 11:00; Stop 11/07/19 at 11:59; Status DC Albuterol Sulfate (Ventolin Neb Soln) 2.5 mg PRN Q4HRS PRN NEB SHORTNESS OF BREATH Last administered on 11/07/19at 20:16; Start 11/02/19 at 10:30 Latanoprost (Xalatan) 1 drop QHS OU Last administered on 11/10/19at 21:20; Start 11/02/19 at 21:00 Lidocaine (Lidoderm) 1 patch PRN DAILY PRN TP PAIN; Start 11/02/19 at 09:00 Pantoprazole Sodium (Protonix) 20 mg DAILYAC PO ; Start 11/03/19 at 07:30; Status UNV Phenol (Chloraseptic) 1 spray PRN Q6HRS PRN MM SORE THROAT; Start 11/02/19 at 10:15 Piperacillin Sod/ Tazobactam Sod 3.375 gm/Sodium Chloride 50 ml @ 100 mls/hr Q6HRS IV Last administered on 11/11/19at 06:49; Start 11/02/19 at 11:00 Vancomycin HCl (Vanco Per Pharmacy) 1 each PRN DAILY PRN MC SEE COMMENTS Last administered on 11/11/19at 09:21; Start 11/02/19 at 10:30 Vancomycin HCl 1 gm/Sodium Chloride 250 ml @ 250 mls/hr Q24H IV Last administered on 11/03/19at 22:57; Start 11/02/19 at 22:00; Stop 11/04/19 at 07:00; Status DC Vancomycin HCl (Vancomycin Trough Level) 1 each 1X ONCE MC Last administered on 11/03/19at 21:30; Start 11/03/19 at 21:30; Stop 11/03/19 at 21:31; Status DC Levetiracetam 500 mg/Dextrose 105 ml @ 420 mls/hr Q12HR IV Last administered on 11/07/19at 08:38; Start 11/03/19 at 21:00; Stop 11/07/19 at 13:16; Status DC Magnesium Sulfate 50 ml @ 25 mls/hr 1X ONCE IV Last administered on 11/03/19at 13:33; Start 11/03/19 at 12:00; Stop 11/03/19 at 13:59; Status DC Sertraline HCl (Zoloft) 50 mg DAILY PO Last administered on 11/11/19at 10:51; Start 11/04/19 at 09:00 Losartan Potassium (Cozaar) 25 mg DAILY NG Last administered on 11/05/19at 08:54; Start 11/03/19 at 14:00; Stop 11/05/19 at 09:40; Status DC Dexmedetomidine HCl 400 mcg/ Sodium Chloride 100 ml @ 0 mls/hr CONT PRN IV PER PROTOCOL Last administered on 11/05/19at 02:05; Start 11/03/19 at 14:00; Stop 11/06/19 at 10:08; Status DC Sodium Chloride 500 ml @ 500 mls/hr 1X PRN PRN IV SEE COMMENTS; Start 11/03/19 at 14:00 Atropine Sulfate (ATROPINE 0.5mg SYRINGE) 0.5 mg PRN Q5MIN PRN IV SEE COMMENTS; Start 11/03/19 at 14:00; Stop 11/07/19 at 12:28; Status DC Vancomycin HCl 1 gm/Sodium Chloride 250 ml @ 250 mls/hr Q18H IV Last administered on 11/11/19at 10:51; Start 11/04/19 at 17:00 Vancomycin HCl (Vancomycin Trough Level) 1 each 1X ONCE MC Last administered on 11/06/19at 04:30; Start 11/06/19 at 04:30; Stop 11/06/19 at 04:31; Status DC Losartan Potassium (Cozaar) 50 mg DAILY NG Last administered on 11/08/19at 11:05; Start 11/05/19 at 09:45; Stop 11/08/19 at 14:57; Status DC Epinephrine (S2 Racepinephrine) 0.5 ml 1X ONCE NEB Last administered on 11/05/19at 12:00; Start 11/05/19 at 12:00; Stop 11/05/19 at 12:01; Status DC Methylprednisolone Sodium Succinate (SOLU-Medrol 125MG VIAL) 100 mg 1X ONCE IV Last administered on 11/05/19at 12:15; Start 11/05/19 at 12:00; Stop 11/05/19 at 12:01; Status DC Furosemide (Lasix) 20 mg 1X STAT IVP Last administered on 11/05/19at 12:14; Start 11/05/19 at 12:08; Stop 11/05/19 at 12:12; Status DC Furosemide (Lasix) 20 mg 1X ONCE IVP Last administered on 11/05/19at 14:26; Start 11/05/19 at 14:15; Stop 11/05/19 at 14:16; Status DC Clopidogrel Bisulfate (Plavix) 75 mg DAILY PO Last administered on 11/11/19at 08:25; Start 11/07/19 at 11:00 Metoprolol Tartrate (Lopressor Vial) 5 mg ONCE ONCE IVP Last administered on 11/05/19at 23:56; Start 11/06/19 at 00:00; Stop 11/06/19 at 00:01; Status DC Potassium Chloride (Klor-Con) 40 meq 1X PRN PRN PO PER PROTOCOL; Start 11/05/19 at 23:45 Potassium Bicarbonate (Potassium Effervescent Tablet) 40 meq 1X PRN PRN PO PER PROTOCOL; Start 11/05/19 at 23:45 Potassium Chloride/Water 100 ml @ 100 mls/hr PRN Q1HR PRN IV PER PROTOCOL Last administered on 11/06/19at 06:03; Start 11/05/19 at 23:45; Stop 11/06/19 at 06:11; Status DC Potassium Chloride/Water 100 ml @ 100 mls/hr PRN Q1HR PRN IV PER PROTOCOL; Start 11/05/19 at 23:45 Potassium Chloride (Klor-Con) 40 meq PRN Q2HRS PRN PO PER PROTOCOL; Start 11/05/19 at 23:45 Potassium Chloride/Water 100 ml @ 100 mls/hr PRN Q1HR PRN IV PER PROTOCOL; Start 11/05/19 at 23:45 Potassium Chloride/Water 100 ml @ 100 mls/hr PRN Q1HR PRN IV PER PROTOCOL; Start 11/05/19 at 23:45; Stop 11/06/19 at 07:44; Status DC Potassium Chloride (Klor-Con) 40 meq PRN Q2HRS PRN PO PER PROTOCOL; Start 11/05/19 at 23:45 Potassium Chloride/Water 100 ml @ 100 mls/hr PRN Q1HR PRN IV PER PROTOCOL; Start 11/05/19 at 23:45 Potassium Chloride/Water 100 ml @ 100 mls/hr PRN Q1HR PRN IV PER PROTOCOL; Start 11/06/19 at 00:01; Stop 11/06/19 at 07:44; Status DC Magnesium Sulfate 100 ml @ 50 mls/hr PRN DAILY PRN IV PER PROTOCOL; Start 11/06/19 at 00:00 Potassium Phos/ Sodium Phos (Phos-Nak) 1 pkt PRN BID PRN PO PER PROTOCOL; Start 11/06/19 at 09:00 Sodium Phosphate 40 mmol/Sodium Chloride 263.3333 ml @ 62.5 mls/hr 1X PRN PRN IV PER PROTOCOL; Start 11/05/19 at 23:45 Potassium Phosphate 13.6 mmol/Sodium Chloride 254.5333 ml @ 62.5 mls/hr PRN Q4HRS PRN IV PER PROTOCOL; Start 11/05/19 at 23:45 Magnesium Sulfate 50 ml @ 25 mls/hr 1X ONCE IV Last administered on 11/06/19at 00:31; Start 11/06/19 at 01:00; Stop 11/06/19 at 02:59; Status DC Metoprolol Tartrate (Lopressor Vial) 5 mg 1X ONCE IVP Last administered on at 01:52; Start 11/06/19 at 02:00; Stop 11/06/19 at 02:01; Status DC Miscellaneous (Lidoderm Patch Removal) 1 ea PRN QHS PRN MC SEE COMMENTS; Start 11/06/19 at 08:00 Metoprolol Tartrate (Lopressor Vial) 5 mg Q6HRS IVP Last administered on 11/07/19at 05:21; Start 11/06/19 at 12:00; Stop 11/07/19 at 11:59; Status DC Cyanocobalamin (Vitamin B-12) 1,000 mcg DAILY IM Last administered on 11/11/19at 10:54; Start 11/06/19 at 14:30 Furosemide (Lasix) 40 mg 1X ONCE IVP Last administered on 11/06/19at 17:35; Start 11/06/19 at 17:30; Stop 11/06/19 at 17:31; Status DC Amino Acids/ Glycerin/ Electrolytes 1,000 ml @ 80 mls/hr [id number] IV Last administered on 11/11/19at 10:54; Start 11/07/19 at 10:15 Metoprolol Succinate (Toprol Xl) 50 mg DAILY PO Last administered on 11/11/19at 08:25; Start 11/08/19 at 09:00 Furosemide (Lasix) 40 mg DAILY PO Last administered on 11/11/19at 10:51; Start 11/08/19 at 09:00 Lactobacillus Rhamnosus (Culturelle) 1 cap BID PO Last administered on 11/11/19at 10:51; Start 11/07/19 at 21:00 Levetiracetam (Keppra) 500 mg BID PO Last administered on 11/11/19at 08:25; Start 11/07/19 at 21:00 Furosemide (Lasix) 40 mg 1X ONCE IVP Last administered on 11/07/19at 21:55; Start 11/07/19 at 21:45; Stop 11/07/19 at 21:46; Status DC Cyanocobalamin (Vitamin B-12) 1,000 mcg 1X ONCE IM ; Start 11/08/19 at 08:30; Stop 11/08/19 at 08:31; Status DC Potassium Chloride (Klor-Con) 40 meq 1X ONCE PO ; Start 11/08/19 at 09:30; Stop 11/08/19 at 09:31; Status Cancel Furosemide (Lasix) 40 mg 1X ONCE IVP Last administered on 11/08/19at 17:56; Start 11/08/19 at 09:30; Stop 11/08/19 at 09:33; Status DC Pantoprazole Sodium (Protonix) 40 mg DAILYAC PO Last administered on 11/11/19at 08:25; Start 11/09/19 at 07:30 Potassium Chloride (Klor-Con) 40 meq 1X ONCE PO Last administered on 11/08/19at 11:31; Start 11/08/19 at 10:45; Stop 11/08/19 at 10:46; Status DC Potassium Chloride (Klor-Con) 40 meq 1X ONCE PO Last administered on 11/08/19at 17:56; Start 11/08/19 at 12:30; Stop 11/08/19 at 12:31; Status DC Potassium Chloride (Klor-Con) 40 meq 1X ONCE PO ; Start 11/08/19 at 11:15; Stop 11/08/19 at 11:16; Status DC Sacubitril/ Valsartan (Entresto 24 Mg-26 Mg) 1 tab BID PO Last administered on 11/11/19at 08:25; Start 11/10/19 at 09:00 Labetalol HCl (Normodyne Iv Push) 20 mg PRN Q2HR PRN IVP HYPERTENSION Last administered on 11/11/19at 00:51; Start 11/11/19 at 00:30 Vancomycin HCl (Vancomycin Trough Level) 1 each 1X ONCE MC ; Start 11/12/19 at 04:30; Stop 11/12/19 at 04:31 Active Scripts Active Reported Januvia (Sitagliptin Phosphate) 100 Mg Tablet 1 Tab PO DAILY Pantoprazole Sodium (Pantoprazole Sodium) 40 Mg Tablet.dr 20 Mg PO DAILYAC Glimepiride 1 Mg Tablet 1 Tab PO DAILY Hydrocodone-Apap 5-325 (Hydrocodone Bit/Acetaminophen) 1 Tab Tablet 1 Tab PO PRN Q6HRS PRN Lisinopril 10 Mg Tablet 1 Tab PO DAILY Acetaminophen 500 Mg Tablet 1 Tab PO BID Trazodone Hcl 50 Mg Tablet 0.5 Tab PO QHS Omeprazole 20 Mg Capsule.dr 1 Cap PO DAILY Novolog (Insulin Aspart) 100 Unit/1 Ml Cartridge 100 Unit SQ QIDACHS Naproxen 500 Mg Tablet 1 Tab PO PRN Q8HRS PRN Lidocaine PATCH (Lidocaine) 1 Each Adh..patch 1 Each TP DAILY REMOVE AFTER 12 HOURS Latanoprost 2.5 Ml Drops 1 Drop EACHEYE QHS Duoneb 0.5-3(2.5) Mg/3 Ml (Albuterol/Ipratropium) 3 Ml Ampul.neb 3 Ml NEB PRN Q4HRS PRN Imodium A-D (Loperamide HCl) 2 Mg Capsule 2 Mg PO PRN PRN Flonase Allergy Relief (Fluticasone Propionate) 9.9 Ml Fowler.susp 1 Sprays NS PRN Q12HRS PRN Coreg (Carvedilol) 3.125 Mg Tablet 3.125 Mg PO BIDWMEALS Chloraseptic (Phenol) 20 Ml Fowler 1 Fowler MM PRN Q6HRS PRN Calcium Citrate 250 Mg Tablet 500 Mg PO DAILY Tylenol (Acetaminophen) 325 Mg Tablet 2 Tab PO PRN Q6HRS PRN Atorvastatin Calcium 10 Mg Tablet 1 Tab PO QHS Proair Respiclick (Albuterol Sulfate) 90 Mcg Aer.pow.ba 1 Puff IH PRN Q6HRS PRN Alendronate Sodium 70 Mg Tablet 1 Tab PO WEEKLY Citalopram Hbr (Citalopram Hydrobromide) 10 Mg Tablet 1.5 Tab PO DAILY Cetirizine Hcl 10 Mg Tablet 1 Tab PO DAILY Guaifenesin 600 Mg Tablet.er 600 Mg PO PRN Q8HRS PRN Clopidogrel (Clopidogrel Bisulfate) 75 Mg Tablet 1 Tab PO DAILY Novolog Flexpen (Insulin Aspart) 100 Unit/1 Ml Insuln.pen 0-3 Unit SQ QIDACHS PATIENT SLIDING SCALE. 70-249= 0 UNITS. 250-400= 3UNITS. BEFORE MEALS AND AT BEDTIME GIVE 3 UNITS IF BLOOD SUGAR 250 OR ABOVE. Diclofenac Sodium 100 Gm Gel..gram. 1 Carlos TP DAILY D3-50 (Cholecalciferol (Vitamin D3)) 50,000 Unit Capsule 50,000 Unit PO DAILY Trazodone Hcl 50 Mg Tablet 0.5 Tab PO QHS Reglan (Metoclopramide Hcl) 5 Mg Tablet 5 Mg PO DAILY Protonix (Pantoprazole Sodium) 20 Mg Tablet. 1 Tab PO DAILY [place] 5-325 Tablet (Hydrocodone Bit/Acetaminophen) 1 Each Tablet 1 Tab PO Q4HRS Naproxen 500 Mg Tablet 1 Tab PO Q8HRS Lisinopril 2.5 Mg Tablet 1 Tab PO DAILY Lidocaine PATCH (Lidocaine) 1 Each Adh..patch 1 Each TP DAILY REMOVE AFTER 12 HOURS Lasix (Furosemide) 20 Mg Tablet 1 Tab PO DAILY 30 Days Duoneb 0.5-3(2.5) Mg/3 Ml (Albuterol/Ipratropium) 3 Ml Ampul.neb 3 Ml NEB QID Imodium A-D (Loperamide HCl) 2 Mg Capsule 2 Mg PO DAILY Guaifenesin 400 Mg Tablet 400 Mg PO Q8HRS Coreg (Carvedilol) 3.125 Mg Tablet 3.125 Mg PO BID Clopidogrel (Clopidogrel Bisulfate) 75 Mg Tablet 75 Mg PO DAILY Citalopram Hbr (Citalopram Hydrobromide) 10 Mg Tablet 10 Mg PO DAILY Atorvastatin Calcium 10 Mg Tablet 10 Mg PO DAILY Proair Hfa Inhaler (Albuterol Sulfate) 8.5 Gm Hfa.aer.ad 1 Puff INH PRN Q6HRS Acetaminophen 500 Mg Tablet 1 Tab PO PRN Q6HRS Glimepiride 1 Mg Tablet 1 Mg PO DAILY Simvastatin 40 Mg Tablet 40 Mg PO HS Omeprazole 20 Mg Capsule.dr 20 Mg PO DAILY Januvia (Sitagliptin Phosphate) 100 Mg Tablet 100 Mg PO DAILY Vitals/I & O Vital Sign - Last 24 Hours 11/10/19 11/10/19 11/10/19 11/10/19 15:10 19:00 20:00 21:20 Temp 98.0 97.7 98.0 97.7 Pulse 98 100 Resp 19 22 B/P (MAP) 174/84 (114) 181/92 (121) 181/92 Pulse Ox 91 92 O2 Delivery Nasal Cannula Nasal Cannula Bi-pap O2 Flow Rate 5.0 6.0 6.0 11/10/19 11/11/19 11/11/19 11/11/19 23:00 00:51 01:03 03:06 Temp 97.9 98.3 97.9 98.3 Pulse 99 99 95 Resp 20 20 B/P (MAP) 194/96 (128) 194/96 165/85 (111) 175/91 (119) Pulse Ox 91 93 O2 Delivery Nasal Cannula Nasal Cannula O2 Flow Rate 6.0 6.0 11/11/19 11/11/19 11/11/19 11/11/19 07:00 08:00 08:25 08:25 Temp 98.0 98.0 Pulse 106 106 106 Resp 20 B/P (MAP) 155/76 (102) 155/76 155/76 Pulse Ox 94 O2 Delivery Nasal Cannula Bi-pap O2 Flow Rate 6.0 6.0 11/11/19 10:51 Temp 97.7 97.7 Pulse 95 Resp 20 B/P (MAP) 167/102 (123) Pulse Ox 94 O2 Delivery Nasal Cannula O2 Flow Rate 6.0 Intake and Output 11/10/19 11/10/19 11/11/19 15:00 23:00 07:00 Intake Total 300 ml 25 ml Output Total 700 ml 400 ml Balance -400 ml -375 ml Justicifation of Admission Dx: Justifications for Admission: Justification of Admission Dx: Yes Respiratory Failure: Mechanical Ventilation Altered Mental Status: Altered Mental Status Nutrition Consultation Dietary Evaluation: Recommendations by RD: Dietary education by RD Comments: REC continue with dysphagia I diet, thin liquids Expected Outcomes/Goals: to meet >75% of nutrition needs through PO intake Malnutrition Findings: Body Fat Depletion (Non Severe: Mild Depletion Weight Status: Overweight WALTER MCKEE MD Nov 11, 2019 12:15
--- NOTE | 2019-11-11 12:27 | PDOC ---
PULMONARY PROGRESS NOTES Subjective Extubated 11/04 Patient sitting up in the chair off of BiPAP confused Vitals Vital Signs Date Time Temp Pulse Resp B/P (MAP) Pulse Ox O2 Delivery O2 Flow Rate FiO2 11/11/19 10:51 97.7 95 20 167/102 (123) 94 Nasal Cannula 6.0 97.7 ROS: No Nausea, No Chest Pain, No Abdominal Pain, No Increase Cough General: Alert Lungs: Clear Cardiovascular: S1 Abdomen: Soft Neuro Exam: Alert Extremities: No Edema Skin: Warm Labs Laboratory Tests Test 11/09/19 17:14 11/10/19 04:45 11/10/19 07:40 11/10/19 11:43 Glucose (Fingerstick) 174 mg/dL (70-99) 163 mg/dL (70-99) 197 mg/dL (70-99) White Blood Count 13.0 x10^3/uL (4.0-11.0) Red Blood Count 2.75 x10^6/uL (3.50-5.40) Hemoglobin 8.3 g/dL (12.0-15.5) Hematocrit 24.5 % (36.0-47.0) Mean Corpuscular Volume 89 fL (79-100) Mean Corpuscular Hemoglobin 30 pg (25-35) Mean Corpuscular Hemoglobin Concent 34 g/dL (31-37) Red Cell Distribution Width 16.7 % (11.5-14.5) Platelet Count 418 x10^3/uL (140-400) Sodium Level 138 mmol/L (136-145) Potassium Level 4.0 mmol/L (3.5-5.1) Chloride Level 102 mmol/L (98-107) Carbon Dioxide Level 29 mmol/L (21-32) Anion Gap 7 (6-14) Blood Urea Nitrogen 33 mg/dL (7-20) Creatinine 1.2 mg/dL (0.6-1.0) Estimated GFR (Cockcroft-Gault) 43.2 BUN/Creatinine Ratio 28 (6-20) Glucose Level 176 mg/dL (70-99) Calcium Level 8.5 mg/dL (8.5-10.1) Total Bilirubin 0.9 mg/dL (0.2-1.0) Aspartate Amino Transf (AST/SGOT) 21 U/L (15-37) Alanine Aminotransferase (ALT/SGPT) 18 U/L (14-59) Alkaline Phosphatase 76 U/L (46-116) Total Protein 5.2 g/dL (6.4-8.2) Albumin 2.2 g/dL (3.4-5.0) Albumin/Globulin Ratio 0.7 (1.0-1.7) Test 11/10/19 16:35 11/10/19 21:18 11/11/19 08:08 11/11/19 11:47 Glucose (Fingerstick) 212 mg/dL (70-99) 190 mg/dL (70-99) 228 mg/dL (70-99) 218 mg/dL (70-99) Laboratory Tests Test 11/10/19 16:35 11/10/19 21:18 11/11/19 08:08 11/11/19 11:47 Glucose (Fingerstick) 212 mg/dL (70-99) 190 mg/dL (70-99) 228 mg/dL (70-99) 218 mg/dL (70-99) Medications Active Scripts Medications Dose Route/Sig Max Daily Dose Days Date Category Dose Instructions Kristie (Sitagliptin Phosphate) 100 Mg Tablet 1 Tab PO DAILY 11/02/19 Reported Pantoprazole Sodium (Pantoprazole Sodium) 40 Mg Tablet. 20 Mg PO DAILYAC 11/02/19 Reported Glimepiride 1 Mg Tablet 1 Tab PO DAILY 11/02/19 Reported Hydrocodone-Apap 5-325 (Hydrocodone Bit/Acetaminophen) 1 Tab Tablet 1 Tab PO PRN Q6HRS PRN 11/02/19 Reported Lisinopril 10 Mg Tablet 1 Tab PO DAILY 11/02/19 Reported Acetaminophen 500 Mg Tablet 1 Tab PO BID 11/30/18 Reported Trazodone Hcl 50 Mg Tablet 0.5 Tab PO QHS 11/30/18 Reported Omeprazole 20 Mg Capsule. 1 Cap PO DAILY 11/30/18 Reported Novolog (Insulin Aspart) 100 Unit/1 Ml Cartridge 100 Unit SQ QIDACHS 11/30/18 Reported Naproxen 500 Mg Tablet 1 Tab PO PRN Q8HRS PRN 11/30/18 Reported Lidocaine PATCH (Lidocaine) 1 Each Adh..patch 1 Each TP DAILY 11/30/18 Reported REMOVE AFTER 12 HOURS Latanoprost 2.5 Ml Drops 1 Drop EACHEYE QHS 11/30/18 Reported Duoneb 0.5-3(2.5) Mg/3 Ml (Albuterol/Ipratropium) 3 Ml Ampul.neb 3 Ml NEB PRN Q4HRS PRN 11/30/18 Reported Imodium A-D (Loperamide HCl) 2 Mg Capsule 2 Mg PO PRN PRN 11/30/18 Reported Flonase Allergy Relief (Fluticasone Propionate) 9.9 Ml [place].susp 1 Sprays NS PRN Q12HRS PRN 11/30/18 Reported Coreg (Carvedilol) 3.125 Mg Tablet 3.125 Mg PO BIDWMEALS 11/30/18 Reported Chloraseptic (Phenol) 20 Ml [place] 1 [place] MM PRN Q6HRS PRN 11/30/18 Reported Calcium Citrate 250 Mg Tablet 500 Mg PO DAILY 11/30/18 Reported Tylenol (Acetaminophen) 325 Mg Tablet 2 Tab PO PRN Q6HRS PRN 11/30/18 Reported Atorvastatin Calcium 10 Mg Tablet 1 Tab PO QHS 11/30/18 Reported Proair Respiclick (Albuterol Sulfate) 90 Mcg Aer.pow.ba 1 Puff IH PRN Q6HRS PRN 01/18/17 Reported Alendronate Sodium 70 Mg Tablet 1 Tab PO WEEKLY 01/18/17 Reported Citalopram Hbr (Citalopram Hydrobromide) 10 Mg Tablet 1.5 Tab PO DAILY 01/18/17 Reported Cetirizine Hcl 10 Mg Tablet 1 Tab PO DAILY 01/18/17 Reported Guaifenesin 600 Mg Tablet.er 600 Mg PO PRN Q8HRS PRN 01/18/17 Reported Clopidogrel (Clopidogrel Bisulfate) 75 Mg Tablet 1 Tab PO DAILY 01/18/17 Reported Novolog Flexpen (Insulin Aspart) 100 Unit/1 Ml Insuln.pen 0-3 Unit SQ QIDACHS 10/25/19 Reported PATIENT SLIDING SCALE. 70-249= 0 UNITS. 250-400= 3UNITS. BEFORE MEALS AND AT BEDTIME GIVE 3 UNITS IF BLOOD SUGAR 250 OR ABOVE. Diclofenac Sodium 100 Gm Gel..gram. 1 [place] TP DAILY 10/25/19 Reported D3-50 (Cholecalciferol (Vitamin D3)) 50,000 Unit Capsule 50,000 Unit PO DAILY 10/25/19 Reported Trazodone Hcl 50 Mg Tablet 0.5 Tab PO QHS 10/25/19 Reported Reglan (Metoclopramide Hcl) 5 Mg Tablet 5 Mg PO DAILY 10/25/19 Reported Protonix (Pantoprazole Sodium) 20 Mg Tablet.dr 1 Tab PO DAILY 10/25/19 Reported [place] 5-325 Tablet (Hydrocodone Bit/Acetaminophen) 1 Each Tablet 1 Tab PO Q4HRS 10/25/19 Reported Naproxen 500 Mg Tablet 1 Tab PO Q8HRS 10/25/19 Reported Lisinopril 2.5 Mg Tablet 1 Tab PO DAILY 10/25/19 Reported Lidocaine PATCH (Lidocaine) 1 Each Adh..patch 1 Each TP DAILY 10/25/19 Reported REMOVE AFTER 12 HOURS Lasix (Furosemide) 20 Mg Tablet 1 Tab PO DAILY 30 10/25/19 Reported Duoneb 0.5-3(2.5) Mg/3 Ml (Albuterol/Ipratropium) 3 Ml Ampul.neb 3 Ml NEB QID 10/25/19 Reported Imodium A-D (Loperamide HCl) 2 Mg Capsule 2 Mg PO DAILY 10/25/19 Reported Guaifenesin 400 Mg Tablet 400 Mg PO Q8HRS 10/25/19 Reported Coreg (Carvedilol) 3.125 Mg Tablet 3.125 Mg PO BID 10/25/19 Reported Clopidogrel (Clopidogrel Bisulfate) 75 Mg Tablet 75 Mg PO DAILY 10/25/19 Reported Citalopram Hbr (Citalopram Hydrobromide) 10 Mg Tablet 10 Mg PO DAILY 10/25/19 Reported Atorvastatin Calcium 10 Mg Tablet 10 Mg PO DAILY 10/25/19 Reported Proair Hfa Inhaler (Albuterol Sulfate) 8.5 Gm Hfa.aer.ad 1 Puff INH PRN Q6HRS 10/25/19 Reported Acetaminophen 500 Mg Tablet 1 Tab PO PRN Q6HRS 10/25/19 Reported Glimepiride 1 Mg Tablet 1 Mg PO DAILY 07/05/14 Reported Simvastatin 40 Mg Tablet 40 Mg PO HS 07/05/14 Reported Omeprazole 20 Mg Capsule.dr 20 Mg PO DAILY 07/05/14 Reported Januvia (Sitagliptin Phosphate) 100 Mg Tablet 100 Mg PO DAILY 07/05/14 Reported Comments Chest x-ray 624 improved ECHO <Conclusion> The left ventricular systolic function is severely impaired. The Ejection Fraction is 25%. Transmitral Doppler flow pattern is Grade II-pseudonormal filling dynamics. Mild to moderate mitral regurgitation. Moderate to severe tricuspid regurgitation with an estimated PAP of 83 mmHg. There is severe pulmonary hypertension. There is no evidence of significant pericardial effusion. Impression . IMPRESSION: 1. Acute respiratory failure, multifactorial in etiology. Extubated 11/04 /developed flash pulmonary edema post extubation from hypertensive urgency Rx with lasix/ bipap, --- improving patient set up with home noninvasive ventilation 2. New-onset seizure.-- no further seizures reported 3. Acute diastolic congestive heart failure, rule out myocardial infarction, less likely pneumonia. 4. Abnormal chest x-ray. 5. Electrolyte abnormality. 6. Hypertensive urgency. 7. Diabetes mellitus. 8. COVID-19 Neg 9. Dysphagia 10. cardiomyopathy EF 25% Plan . Continue PRN BiPAP oxygen supplementation Continue PPN -- speech following Follow cardiology recs -- Follow GI recs Cont. ABX PT/OT -- OOB as tolerated D/W CRYS CHUA MD Nov 11, 2019 12:27
[2019-11-11 13:27] LABS: BASO # 0.2 x10^3/uL (0.0-0.2); BASO % 1 % (0-3); EOS % 0 % (0-3); HEMATOCRIT 24.9 % (36.0-47.0); HEMOGLOBIN 8.6 g/dL (12.0-15.5); LYMPH # 1.3 x10^3/uL (1.0-4.8); LYMPH % 9 % (24-48); MEAN CORPUSCULAR HEMOGLOBIN 31 pg (25-35); MEAN CORPUSCULAR HGB CONC 35 g/dL (31-37); MEAN CORPUSCULAR VOLUME 89 fL (79-100); MONO # 1.4 x10^3/uL (0.0-1.1); MONO % 10 % (0-9); NEUT # 11.1 x10^3/uL (1.8-7.7); NEUT % 79 % (31-73); PLATELET COUNT 389 x10^3/uL (140-400); RED BLOOD COUNT 2.81 x10^6/uL (3.50-5.40); RED CELL DISTRIBUTION WIDTH 16.2 % (11.5-14.5)
[2019-11-11 13:36] LABS: CALCIUM 8.7 mg/dL (8.5-10.1); CREATININE 1.3 mg/dL (0.6-1.0); GFR 39.4; MAGNESIUM 1.9 mg/dL (1.8-2.4); PHOSPHORUS 2.4 mg/dL (2.6-4.7); POTASSIUM 3.6 mmol/L (3.5-5.1)
[2019-11-11] MEDS ORDERED: predniSONE 10 MG TABLET PO ONE ×2 (17:30→23:00)
--- NOTE | 2019-11-11 19:45 | NUR ---
Pt in bed assessment completed vss poc explained pt denied pain, pt reoriented to surroundings call light in reach will resume care and continue to monitor pt.
[2019-11-11] MEDS: LATANOPROST 0.005% OPHTH SOLUTION 2.5ML BOTTLE. OU SCH (20:33)
[2019-11-11] MEDS: ATORVASTATIN CALCIUM 10 MG TABLET. PO SCH (20:33)
[2019-11-11] MEDS: ACETAMINOPHEN 325 MG TABLET. PO PRN (20:36)
[2019-11-12] VITALS (14 sets, daily range): BP systolic 146–198; BP diastolic 57–112
[2019-11-12] MEDS: AMINO AC 3%/ELECTROLYTE/GLYCER 1,000 ML IV SCH ×2 (01:30→14:35)
[2019-11-12] MEDS: PIPERACILLIN/TAZOBACTAM 3.375 GM in IV NORMAL SALINE 50ML 50 ML IV SCH ×3 (05:24→17:40)
[2019-11-12 05:36] LABS: BASO % 0 % (0-3); EOS % 0 % (0-3); HEMATOCRIT 25.2 % (36.0-47.0); HEMOGLOBIN 8.6 g/dL (12.0-15.5); LYMPH # 0.9 x10^3/uL (1.0-4.8); LYMPH % 7 % (24-48); MEAN CORPUSCULAR HEMOGLOBIN 31 pg (25-35); MEAN CORPUSCULAR HGB CONC 34 g/dL (31-37); MEAN CORPUSCULAR VOLUME 90 fL (79-100); MONO # 0.4 x10^3/uL (0.0-1.1); MONO % 3 % (0-9); NEUT # 11.5 x10^3/uL (1.8-7.7); NEUT % 90 % (31-73); PLATELET COUNT 420 x10^3/uL (140-400); RED CELL DISTRIBUTION WIDTH 16.4 % (11.5-14.5); WHITE BLOOD COUNT 12.8 x10^3/uL (4.0-11.0)
[2019-11-12 05:59] LABS: CALCIUM 8.8 mg/dL (8.5-10.1); CREATININE 1.5 mg/dL (0.6-1.0); GFR 33.4; POTASSIUM 4.2 mmol/L (3.5-5.1)
[2019-11-12 06:04] LABS: VANC TR 27.3 mcg/mL (10.0-20.0)
[2019-11-12] MEDS: VANCOMYCIN 1 GM in IV NORMAL SALINE 250ML 250 ML IV SCH (06:08)
[2019-11-12] MEDS: PANTOPRAZOLE 40 MG TABLET.DR. PO SCH (06:10)
[2019-11-12] MEDS: VANCOMYCIN PER PHARMACY MC PRN ×2 (06:21→11:00)
--- NOTE | 2019-11-12 06:22 | NUR ---
Pharmacy Vancomycin Dosing Note S: Consulted to monitor and dose vancomycin started 11/01/19. O: GUILLERMO JIMENEZ is a 79 year old F with Pneumonia, . Other Antibiotics: Zosyn 3.375GM IV q6hrs LABS: Last BUN: 41 Last Creatinine: 1.5 Creatinine Clearance: 28 mL/min Last WBC: 12.8 Last Procalcitonin: - Tmax (past 24 hours): 98.0 Microbiology: / CINDY 5DAYS I/O: 325/1100 Drug Levels: Last Trough level: 27.3 on 11/12/19 at 0430 Last dose given 11/11/19 at 1051 Vancomycin Dosing: Dosing Weight: Actual Target Trough: 15-20 A: Based on: Trough, Actual Wt and CrCl P: 1. 11/12/19 0500 Vancomycin 1000 mg IV q18h DOSING (HELD) 2. Follow up Random level on 11/13/19 at 0500 3. Pharmacy will continue to monitor, follow and adjust therapy as needed. JAMIE MEJIAS RPH, 11/12/19 0622 Signed: 11/12/19 at 0624 by JAMIE MEJIAS RPH PHA
[2019-11-12 06:51] LABS: % BANDS 2 % (0-9); % LYMPHS 7 % (24-48); % METAS 1 % (0-0); % MONOS 1 % (0-10); % SEGS 89 % (35-66); NUCLEATED RBC 1
[2019-11-12 06:52] LABS: PLT ESTIMATE ADEQUATE (ADEQUATE); POLYCHROMASIA SLIGHT
[2019-11-12 06:53] LABS: ANISOCYTOSIS SLIGHT
[2019-11-12] MEDS ORDERED: predniSONE 10 MG TABLET PO ONE (07:00)
--- NOTE | 2019-11-12 08:13 | PDOC ---
PULMONARY PROGRESS NOTES Subjective Extubated 11/04 Currently off of BiPAP no respiratory distress Vitals Vital Signs Date Time Temp Pulse Resp B/P (MAP) Pulse Ox O2 Delivery O2 Flow Rate FiO2 11/12/19 07:51 90 Nasal Cannula 2.0 11/12/19 07:22 97.0 104 22 191/106 (134) 97.0 ROS: No Nausea, No Chest Pain, No Abdominal Pain, No Increase Cough General: Alert Lungs: Clear Cardiovascular: S1 Abdomen: Soft Neuro Exam: Alert Extremities: No Edema Skin: Warm Labs Laboratory Tests Test 11/10/19 11:43 11/10/19 16:35 11/10/19 21:18 11/11/19 08:08 Glucose (Fingerstick) 197 mg/dL (70-99) 212 mg/dL (70-99) 190 mg/dL (70-99) 228 mg/dL (70-99) Test 11/11/19 11:47 11/11/19 13:00 11/11/19 16:45 11/11/19 20:32 Glucose (Fingerstick) 218 mg/dL (70-99) 197 mg/dL (70-99) 276 mg/dL (70-99) White Blood Count 14.0 x10^3/uL (4.0-11.0) Red Blood Count 2.81 x10^6/uL (3.50-5.40) Hemoglobin 8.6 g/dL (12.0-15.5) Hematocrit 24.9 % (36.0-47.0) Mean Corpuscular Volume 89 fL (79-100) Mean Corpuscular Hemoglobin 31 pg (25-35) Mean Corpuscular Hemoglobin Concent 35 g/dL (31-37) Red Cell Distribution Width 16.2 % (11.5-14.5) Platelet Count 389 x10^3/uL (140-400) Neutrophils (%) (Auto) 79 % (31-73) Lymphocytes (%) (Auto) 9 % (24-48) Monocytes (%) (Auto) 10 % (0-9) Eosinophils (%) (Auto) 0 % (0-3) Basophils (%) (Auto) 1 % (0-3) Neutrophils # (Auto) 11.1 x10^3/uL (1.8-7.7) Lymphocytes # (Auto) 1.3 x10^3/uL (1.0-4.8) Monocytes # (Auto) 1.4 x10^3/uL (0.0-1.1) Eosinophils # (Auto) 0.0 x10^3/uL (0.0-0.7) Basophils # (Auto) 0.2 x10^3/uL (0.0-0.2) Sodium Level 134 mmol/L (136-145) Potassium Level 3.6 mmol/L (3.5-5.1) Chloride Level 99 mmol/L (98-107) Carbon Dioxide Level 22 mmol/L (21-32) Anion Gap 13 (6-14) Blood Urea Nitrogen 35 mg/dL (7-20) Creatinine 1.3 mg/dL (0.6-1.0) Estimated GFR (Cockcroft-Gault) 39.4 Glucose Level 226 mg/dL (70-99) Calcium Level 8.7 mg/dL (8.5-10.1) Phosphorus Level 2.4 mg/dL (2.6-4.7) Magnesium Level 1.9 mg/dL (1.8-2.4) Test 11/12/19 04:33 11/12/19 07:34 White Blood Count 12.8 x10^3/uL (4.0-11.0) Red Blood Count 2.80 x10^6/uL (3.50-5.40) Hemoglobin 8.6 g/dL (12.0-15.5) Hematocrit 25.2 % (36.0-47.0) Mean Corpuscular Volume 90 fL (79-100) Mean Corpuscular Hemoglobin 31 pg (25-35) Mean Corpuscular Hemoglobin Concent 34 g/dL (31-37) Red Cell Distribution Width 16.4 % (11.5-14.5) Platelet Count 420 x10^3/uL (140-400) Neutrophils (%) (Auto) 90 % (31-73) Lymphocytes (%) (Auto) 7 % (24-48) Monocytes (%) (Auto) 3 % (0-9) Eosinophils (%) (Auto) 0 % (0-3) Basophils (%) (Auto) 0 % (0-3) Neutrophils # (Auto) 11.5 x10^3/uL (1.8-7.7) Lymphocytes # (Auto) 0.9 x10^3/uL (1.0-4.8) Monocytes # (Auto) 0.4 x10^3/uL (0.0-1.1) Eosinophils # (Auto) 0.0 x10^3/uL (0.0-0.7) Basophils # (Auto) 0.0 x10^3/uL (0.0-0.2) Segmented Neutrophils % 89 % (35-66) Band Neutrophils % 2 % (0-9) Lymphocytes % 7 % (24-48) Monocytes % 1 % (0-10) Metamyelocytes % 1 % (0-0) Nucleated Red Blood Cells 1 Platelet Estimate Adequate (ADEQUATE) Large Platelets Few Giant Platelets Occ Polychromasia Slight Anisocytosis Slight Sodium Level 136 mmol/L (136-145) Potassium Level 4.2 mmol/L (3.5-5.1) Chloride Level 99 mmol/L (98-107) Carbon Dioxide Level 24 mmol/L (21-32) Anion Gap 13 (6-14) Blood Urea Nitrogen 41 mg/dL (7-20) Creatinine 1.5 mg/dL (0.6-1.0) Estimated GFR (Cockcroft-Gault) 33.4 Glucose Level 275 mg/dL (70-99) Calcium Level 8.8 mg/dL (8.5-10.1) Magnesium Level 2.0 mg/dL (1.8-2.4) Vancomycin Level Trough 27.3 mcg/mL (10.0-20.0) Vancomycin Last Dose Date 11/11/19 Vancomycin Last Dose Time 1100 Glucose (Fingerstick) 270 mg/dL (70-99) Laboratory Tests Test 11/11/19 11:47 11/11/19 13:00 11/11/19 16:45 11/11/19 20:32 Glucose (Fingerstick) 218 mg/dL (70-99) 197 mg/dL (70-99) 276 mg/dL (70-99) White Blood Count 14.0 x10^3/uL (4.0-11.0) Red Blood Count 2.81 x10^6/uL (3.50-5.40) Hemoglobin 8.6 g/dL (12.0-15.5) Hematocrit 24.9 % (36.0-47.0) Mean Corpuscular Volume 89 fL (79-100) Mean Corpuscular Hemoglobin 31 pg (25-35) Mean Corpuscular Hemoglobin Concent 35 g/dL (31-37) Red Cell Distribution Width 16.2 % (11.5-14.5) Platelet Count 389 x10^3/uL (140-400) Neutrophils (%) (Auto) 79 % (31-73) Lymphocytes (%) (Auto) 9 % (24-48) Monocytes (%) (Auto) 10 % (0-9) Eosinophils (%) (Auto) 0 % (0-3) Basophils (%) (Auto) 1 % (0-3) Neutrophils # (Auto) 11.1 x10^3/uL (1.8-7.7) Lymphocytes # (Auto) 1.3 x10^3/uL (1.0-4.8) Monocytes # (Auto) 1.4 x10^3/uL (0.0-1.1) Eosinophils # (Auto) 0.0 x10^3/uL (0.0-0.7) Basophils # (Auto) 0.2 x10^3/uL (0.0-0.2) Sodium Level 134 mmol/L (136-145) Potassium Level 3.6 mmol/L (3.5-5.1) Chloride Level 99 mmol/L (98-107) Carbon Dioxide Level 22 mmol/L (21-32) Anion Gap 13 (6-14) Blood Urea Nitrogen 35 mg/dL (7-20) Creatinine 1.3 mg/dL (0.6-1.0) Estimated GFR (Cockcroft-Gault) 39.4 Glucose Level 226 mg/dL (70-99) Calcium Level 8.7 mg/dL (8.5-10.1) Phosphorus Level 2.4 mg/dL (2.6-4.7) Magnesium Level 1.9 mg/dL (1.8-2.4) Test 11/12/19 04:33 11/12/19 07:34 White Blood Count 12.8 x10^3/uL (4.0-11.0) Red Blood Count 2.80 x10^6/uL (3.50-5.40) Hemoglobin 8.6 g/dL (12.0-15.5) Hematocrit 25.2 % (36.0-47.0) Mean Corpuscular Volume 90 fL (79-100) Mean Corpuscular Hemoglobin 31 pg (25-35) Mean Corpuscular Hemoglobin Concent 34 g/dL (31-37) Red Cell Distribution Width 16.4 % (11.5-14.5) Platelet Count 420 x10^3/uL (140-400) Neutrophils (%) (Auto) 90 % (31-73) Lymphocytes (%) (Auto) 7 % (24-48) Monocytes (%) (Auto) 3 % (0-9) Eosinophils (%) (Auto) 0 % (0-3) Basophils (%) (Auto) 0 % (0-3) Neutrophils # (Auto) 11.5 x10^3/uL (1.8-7.7) Lymphocytes # (Auto) 0.9 x10^3/uL (1.0-4.8) Monocytes # (Auto) 0.4 x10^3/uL (0.0-1.1) Eosinophils # (Auto) 0.0 x10^3/uL (0.0-0.7) Basophils # (Auto) 0.0 x10^3/uL (0.0-0.2) Segmented Neutrophils % 89 % (35-66) Band Neutrophils % 2 % (0-9) Lymphocytes % 7 % (24-48) Monocytes % 1 % (0-10) Metamyelocytes % 1 % (0-0) Nucleated Red Blood Cells 1 Platelet Estimate Adequate (ADEQUATE) Large Platelets Few Giant Platelets Occ Polychromasia Slight Anisocytosis Slight Sodium Level 136 mmol/L (136-145) Potassium Level 4.2 mmol/L (3.5-5.1) Chloride Level 99 mmol/L (98-107) Carbon Dioxide Level 24 mmol/L (21-32) Anion Gap 13 (6-14) Blood Urea Nitrogen 41 mg/dL (7-20) Creatinine 1.5 mg/dL (0.6-1.0) Estimated GFR (Cockcroft-Gault) 33.4 Glucose Level 275 mg/dL (70-99) Calcium Level 8.8 mg/dL (8.5-10.1) Magnesium Level 2.0 mg/dL (1.8-2.4) Vancomycin Level Trough 27.3 mcg/mL (10.0-20.0) Vancomycin Last Dose Date 11/11/19 Vancomycin Last Dose Time 1100 Glucose (Fingerstick) 270 mg/dL (70-99) Medications Active Scripts Medications Dose Route/Sig Max Daily Dose Days Date Category Dose Instructions Januvia (Sitagliptin Phosphate) 100 Mg Tablet 1 Tab PO DAILY 11/02/19 Reported Pantoprazole Sodium (Pantoprazole Sodium) 40 Mg Tablet.dr 20 Mg PO DAILYAC 11/02/19 Reported Glimepiride 1 Mg Tablet 1 Tab PO DAILY 11/02/19 Reported Hydrocodone-Apap 5-325 (Hydrocodone Bit/Acetaminophen) 1 Tab Tablet 1 Tab PO PRN Q6HRS PRN 11/02/19 Reported Lisinopril 10 Mg Tablet 1 Tab PO DAILY 11/02/19 Reported Acetaminophen 500 Mg Tablet 1 Tab PO BID 11/30/18 Reported Trazodone Hcl 50 Mg Tablet 0.5 Tab PO QHS 11/30/18 Reported Omeprazole 20 Mg Capsule.dr 1 Cap PO DAILY 11/30/18 Reported Novolog (Insulin Aspart) 100 Unit/1 Ml Cartridge 100 Unit SQ QIDACHS 11/30/18 Reported Naproxen 500 Mg Tablet 1 Tab PO PRN Q8HRS PRN 11/30/18 Reported Lidocaine PATCH (Lidocaine) 1 Each Adh..patch 1 Each TP DAILY 11/30/18 Reported REMOVE AFTER 12 HOURS Latanoprost 2.5 Ml Drops 1 Drop EACHEYE QHS 11/30/18 Reported Duoneb 0.5-3(2.5) Mg/3 Ml (Albuterol/Ipratropium) 3 Ml Ampul.neb 3 Ml NEB PRN Q4HRS PRN 11/30/18 Reported Imodium A-D (Loperamide HCl) 2 Mg Capsule 2 Mg PO PRN PRN 11/30/18 Reported Flonase Allergy Relief (Fluticasone Propionate) 9.9 Ml [place].susp 1 Sprays NS PRN Q12HRS PRN 11/30/18 Reported Coreg (Carvedilol) 3.125 Mg Tablet 3.125 Mg PO BIDWMEALS 11/30/18 Reported Chloraseptic (Phenol) 20 Ml [place] 1 [place] MM PRN Q6HRS PRN 11/30/18 Reported Calcium Citrate 250 Mg Tablet 500 Mg PO DAILY 11/30/18 Reported Tylenol (Acetaminophen) 325 Mg Tablet 2 Tab PO PRN Q6HRS PRN 11/30/18 Reported Atorvastatin Calcium 10 Mg Tablet 1 Tab PO QHS 11/30/18 Reported Proair Respiclick (Albuterol Sulfate) 90 Mcg Aer.pow.ba 1 Puff IH PRN Q6HRS PRN 01/18/17 Reported Alendronate Sodium 70 Mg Tablet 1 Tab PO WEEKLY 01/18/17 Reported Citalopram Hbr (Citalopram Hydrobromide) 10 Mg Tablet 1.5 Tab PO DAILY 01/18/17 Reported Cetirizine Hcl 10 Mg Tablet 1 Tab PO DAILY 01/18/17 Reported Guaifenesin 600 Mg Tablet.er 600 Mg PO PRN Q8HRS PRN 01/18/17 Reported Clopidogrel (Clopidogrel Bisulfate) 75 Mg Tablet 1 Tab PO DAILY 01/18/17 Reported Novolog Flexpen (Insulin Aspart) 100 Unit/1 Ml Insuln.pen 0-3 Unit SQ QIDACHS 10/25/19 Reported PATIENT SLIDING SCALE. 70-249= 0 UNITS. 250-400= 3UNITS. BEFORE MEALS AND AT BEDTIME GIVE 3 UNITS IF BLOOD SUGAR 250 OR ABOVE. Diclofenac Sodium 100 Gm Gel..gram. 1 [place] TP DAILY 10/25/19 Reported D3-50 (Cholecalciferol (Vitamin D3)) 50,000 Unit Capsule 50,000 Unit PO DAILY 10/25/19 Reported Trazodone Hcl 50 Mg Tablet 0.5 Tab PO QHS 10/25/19 Reported Reglan (Metoclopramide Hcl) 5 Mg Tablet 5 Mg PO DAILY 10/25/19 Reported Protonix (Pantoprazole Sodium) 20 Mg Tablet.dr 1 Tab PO DAILY 10/25/19 Reported [place] 5-325 Tablet (Hydrocodone Bit/Acetaminophen) 1 Each Tablet 1 Tab PO Q4HRS 10/25/19 Reported Naproxen 500 Mg Tablet 1 Tab PO Q8HRS 10/25/19 Reported Lisinopril 2.5 Mg Tablet 1 Tab PO DAILY 10/25/19 Reported Lidocaine PATCH (Lidocaine) 1 Each Adh..patch 1 Each TP DAILY 10/25/19 Reported REMOVE AFTER 12 HOURS Lasix (Furosemide) 20 Mg Tablet 1 Tab PO DAILY 30 10/25/19 Reported Duoneb 0.5-3(2.5) Mg/3 Ml (Albuterol/Ipratropium) 3 Ml Ampul.neb 3 Ml NEB QID 10/25/19 Reported Imodium A-D (Loperamide HCl) 2 Mg Capsule 2 Mg PO DAILY 10/25/19 Reported Guaifenesin 400 Mg Tablet 400 Mg PO Q8HRS 10/25/19 Reported Coreg (Carvedilol) 3.125 Mg Tablet 3.125 Mg PO BID 10/25/19 Reported Clopidogrel (Clopidogrel Bisulfate) 75 Mg Tablet 75 Mg PO DAILY 10/25/19 Reported Citalopram Hbr (Citalopram Hydrobromide) 10 Mg Tablet 10 Mg PO DAILY 10/25/19 Reported Atorvastatin Calcium 10 Mg Tablet 10 Mg PO DAILY 10/25/19 Reported Proair Hfa Inhaler (Albuterol Sulfate) 8.5 Gm Hfa.aer.ad 1 Puff INH PRN Q6HRS 10/25/19 Reported Acetaminophen 500 Mg Tablet 1 Tab PO PRN Q6HRS 10/25/19 Reported Glimepiride 1 Mg Tablet 1 Mg PO DAILY 07/05/14 Reported Simvastatin 40 Mg Tablet 40 Mg PO HS 07/05/14 Reported Omeprazole 20 Mg Capsule.dr 20 Mg PO DAILY 07/05/14 Reported Januvia (Sitagliptin Phosphate) 100 Mg Tablet 100 Mg PO DAILY 07/05/14 Reported Comments Chest x-ray 624 improved ECHO <Conclusion> The left ventricular systolic function is severely impaired. The Ejection Fraction is 25%. Transmitral Doppler flow pattern is Grade II-pseudonormal filling dynamics. Mild to moderate mitral regurgitation. Moderate to severe tricuspid regurgitation with an estimated PAP of 83 mmHg. There is severe pulmonary hypertension. There is no evidence of significant pericardial effusion. Impression . IMPRESSION: 1. Acute respiratory failure, multifactorial in etiology. Extubated 11/04 /developed flash pulmonary edema post extubation from hypertensive urgency Rx with lasix/ bipap, --- improving patient set up with home noninvasive ventilation 2. New-onset seizure.-- no further seizures reported 3. Acute diastolic congestive heart failure, rule out myocardial infarction, less likely pneumonia. 4. Abnormal chest x-ray. 5. Electrolyte abnormality. 6. Hypertensive urgency. 7. Diabetes mellitus. 8. COVID-19 Neg 9. Dysphagia 10. cardiomyopathy EF 25% Plan . [facility], follow cardiology input... ?Cardiac catheterization Continue PRN BiPAP oxygen supplementation Continue PPN -- speech following Follow cardiology recs -- Follow GI recs Cont. ABX PT/OT -- OOB as tolerated D/W CRYS CHUA MD Nov 12, 2019 08:13
[2019-11-12] MEDS: CYANOCOBALAMIN (VITAMIN B-12) 1,000 MCG/ML VIAL IM SCH (08:34)
[2019-11-12] MEDS: LACTOBACILLUS RHAMNOSUS GG 1 CAPSULE. PO SCH ×2 (08:35→20:48)
[2019-11-12] MEDS: CETIRIZINE HCL 10 MG TABLET. PO SCH (08:35)
[2019-11-12] MEDS: SACUBITRIL/VALSARTAN 24/26MG TABLET. PO SCH ×2 (08:35→20:48)
[2019-11-12] MEDS: levETIRAcetam 500 MG TABLET PO SCH ×2 (08:35→20:48)
[2019-11-12] MEDS: SERTRALINE 50 MG TABLET. PO SCH (08:35)
[2019-11-12] MEDS: METOPROLOL SUCC 24HR ER 50 MG TAB.ER.24H. PO SCH (08:35)
[2019-11-12] MEDS: FUROSEMIDE 40 MG TABLET. PO SCH (08:36)
[2019-11-12] MEDS: CLOPIDOGREL BISULFATE 75 MG TABLET PO SCH (08:36)
--- NOTE | 2019-11-12 08:50 | PDOC ---
PROGRESS NOTES Assessment She has been having hallucinations, suspect pre-existing dementia, keep in mind the possibility of PRES and side effects of levetiracetam Seizure, no evidence of recurrence Possible posterior reversible encephalopathy syndrome, no evidence of this clinically now Having a cardiac catheterization today (11/07) Medical issues: anemia, aspiration pneumonia, resolved respiratory failure, severe hypertension, hypokalemia (resolved), elevated troponin, elevated BNP, heart failure, ejection fraction 25%, paroxysmal torsades, sinus bradycardia, anemia, peripheral artery disease, pulmonary hypertension Cardiac cath canceled, awaiting plans for rescheduling Plan Levetiracetam Treatment of medical problems. Subjective No complaints Objective Vital Signs Date Time Temp Pulse Resp B/P (MAP) Pulse Ox O2 Delivery O2 Flow Rate FiO2 11/12/19 08:35 104 191/106 11/12/19 07:51 90 Nasal Cannula 2.0 11/12/19 07:22 97.0 22 97.0 Intake and Output 11/12/19 07:00 Intake Total 130 ml Output Total 910 ml Balance -780 ml Intake Oral 130 ml Output Urine Total 910 ml # Bowel Movements 2 PHYSICAL EXAM Sleepy, alerts easily. Oriented to place and person, off on date. PERRL. EOMI. CN: no focal findings. Muscle tone: normal. Muscle strength: 5/5 DTR: 2+ Plantar reflex: flexor Gait: not examined in bed. Sensory exam: no abnormal findings. No cerebellar signs elicited. Review of Relevant I have reviewed the following items regina (where applicable) has been applied. Labs Laboratory Tests Test 11/10/19 11:43 11/10/19 16:35 11/10/19 21:18 11/11/19 08:08 Glucose (Fingerstick) 197 mg/dL (70-99) 212 mg/dL (70-99) 190 mg/dL (70-99) 228 mg/dL (70-99) Test 11/11/19 11:47 11/11/19 13:00 11/11/19 16:45 11/11/19 20:32 Glucose (Fingerstick) 218 mg/dL (70-99) 197 mg/dL (70-99) 276 mg/dL (70-99) White Blood Count 14.0 x10^3/uL (4.0-11.0) Red Blood Count 2.81 x10^6/uL (3.50-5.40) Hemoglobin 8.6 g/dL (12.0-15.5) Hematocrit 24.9 % (36.0-47.0) Mean Corpuscular Volume 89 fL (79-100) Mean Corpuscular Hemoglobin 31 pg (25-35) Mean Corpuscular Hemoglobin Concent 35 g/dL (31-37) Red Cell Distribution Width 16.2 % (11.5-14.5) Platelet Count 389 x10^3/uL (140-400) Neutrophils (%) (Auto) 79 % (31-73) Lymphocytes (%) (Auto) 9 % (24-48) Monocytes (%) (Auto) 10 % (0-9) Eosinophils (%) (Auto) 0 % (0-3) Basophils (%) (Auto) 1 % (0-3) Neutrophils # (Auto) 11.1 x10^3/uL (1.8-7.7) Lymphocytes # (Auto) 1.3 x10^3/uL (1.0-4.8) Monocytes # (Auto) 1.4 x10^3/uL (0.0-1.1) Eosinophils # (Auto) 0.0 x10^3/uL (0.0-0.7) Basophils # (Auto) 0.2 x10^3/uL (0.0-0.2) Sodium Level 134 mmol/L (136-145) Potassium Level 3.6 mmol/L (3.5-5.1) Chloride Level 99 mmol/L (98-107) Carbon Dioxide Level 22 mmol/L (21-32) Anion Gap 13 (6-14) Blood Urea Nitrogen 35 mg/dL (7-20) Creatinine 1.3 mg/dL (0.6-1.0) Estimated GFR (Cockcroft-Gault) 39.4 Glucose Level 226 mg/dL (70-99) Calcium Level 8.7 mg/dL (8.5-10.1) Phosphorus Level 2.4 mg/dL (2.6-4.7) Magnesium Level 1.9 mg/dL (1.8-2.4) Test 11/12/19 04:33 11/12/19 07:34 White Blood Count 12.8 x10^3/uL (4.0-11.0) Red Blood Count 2.80 x10^6/uL (3.50-5.40) Hemoglobin 8.6 g/dL (12.0-15.5) Hematocrit 25.2 % (36.0-47.0) Mean Corpuscular Volume 90 fL (79-100) Mean Corpuscular Hemoglobin 31 pg (25-35) Mean Corpuscular Hemoglobin Concent 34 g/dL (31-37) Red Cell Distribution Width 16.4 % (11.5-14.5) Platelet Count 420 x10^3/uL (140-400) Neutrophils (%) (Auto) 90 % (31-73) Lymphocytes (%) (Auto) 7 % (24-48) Monocytes (%) (Auto) 3 % (0-9) Eosinophils (%) (Auto) 0 % (0-3) Basophils (%) (Auto) 0 % (0-3) Neutrophils # (Auto) 11.5 x10^3/uL (1.8-7.7) Lymphocytes # (Auto) 0.9 x10^3/uL (1.0-4.8) Monocytes # (Auto) 0.4 x10^3/uL (0.0-1.1) Eosinophils # (Auto) 0.0 x10^3/uL (0.0-0.7) Basophils # (Auto) 0.0 x10^3/uL (0.0-0.2) Segmented Neutrophils % 89 % (35-66) Band Neutrophils % 2 % (0-9) Lymphocytes % 7 % (24-48) Monocytes % 1 % (0-10) Metamyelocytes % 1 % (0-0) Nucleated Red Blood Cells 1 Platelet Estimate Adequate (ADEQUATE) Large Platelets Few Giant Platelets Occ Polychromasia Slight Anisocytosis Slight Sodium Level 136 mmol/L (136-145) Potassium Level 4.2 mmol/L (3.5-5.1) Chloride Level 99 mmol/L (98-107) Carbon Dioxide Level 24 mmol/L (21-32) Anion Gap 13 (6-14) Blood Urea Nitrogen 41 mg/dL (7-20) Creatinine 1.5 mg/dL (0.6-1.0) Estimated GFR (Cockcroft-Gault) 33.4 Glucose Level 275 mg/dL (70-99) Calcium Level 8.8 mg/dL (8.5-10.1) Magnesium Level 2.0 mg/dL (1.8-2.4) Vancomycin Level Trough 27.3 mcg/mL (10.0-20.0) Vancomycin Last Dose Date 11/11/19 Vancomycin Last Dose Time 1100 Glucose (Fingerstick) 270 mg/dL (70-99) Laboratory Tests Test 11/11/19 11:47 11/11/19 13:00 11/11/19 16:45 11/11/19 20:32 Glucose (Fingerstick) 218 mg/dL (70-99) 197 mg/dL (70-99) 276 mg/dL (70-99) White Blood Count 14.0 x10^3/uL (4.0-11.0) Red Blood Count 2.81 x10^6/uL (3.50-5.40) Hemoglobin 8.6 g/dL (12.0-15.5) Hematocrit 24.9 % (36.0-47.0) Mean Corpuscular Volume 89 fL (79-100) Mean Corpuscular Hemoglobin 31 pg (25-35) Mean Corpuscular Hemoglobin Concent 35 g/dL (31-37) Red Cell Distribution Width 16.2 % (11.5-14.5) Platelet Count 389 x10^3/uL (140-400) Neutrophils (%) (Auto) 79 % (31-73) Lymphocytes (%) (Auto) 9 % (24-48) Monocytes (%) (Auto) 10 % (0-9) Eosinophils (%) (Auto) 0 % (0-3) Basophils (%) (Auto) 1 % (0-3) Neutrophils # (Auto) 11.1 x10^3/uL (1.8-7.7) Lymphocytes # (Auto) 1.3 x10^3/uL (1.0-4.8) Monocytes # (Auto) 1.4 x10^3/uL (0.0-1.1) Eosinophils # (Auto) 0.0 x10^3/uL (0.0-0.7) Basophils # (Auto) 0.2 x10^3/uL (0.0-0.2) Sodium Level 134 mmol/L (136-145) Potassium Level 3.6 mmol/L (3.5-5.1) Chloride Level 99 mmol/L (98-107) Carbon Dioxide Level 22 mmol/L (21-32) Anion Gap 13 (6-14) Blood Urea Nitrogen 35 mg/dL (7-20) Creatinine 1.3 mg/dL (0.6-1.0) Estimated GFR (Cockcroft-Gault) 39.4 Glucose Level 226 mg/dL (70-99) Calcium Level 8.7 mg/dL (8.5-10.1) Phosphorus Level 2.4 mg/dL (2.6-4.7) Magnesium Level 1.9 mg/dL (1.8-2.4) Test 11/12/19 04:33 11/12/19 07:34 White Blood Count 12.8 x10^3/uL (4.0-11.0) Red Blood Count 2.80 x10^6/uL (3.50-5.40) Hemoglobin 8.6 g/dL (12.0-15.5) Hematocrit 25.2 % (36.0-47.0) Mean Corpuscular Volume 90 fL (79-100) Mean Corpuscular Hemoglobin 31 pg (25-35) Mean Corpuscular Hemoglobin Concent 34 g/dL (31-37) Red Cell Distribution Width 16.4 % (11.5-14.5) Platelet Count 420 x10^3/uL (140-400) Neutrophils (%) (Auto) 90 % (31-73) Lymphocytes (%) (Auto) 7 % (24-48) Monocytes (%) (Auto) 3 % (0-9) Eosinophils (%) (Auto) 0 % (0-3) Basophils (%) (Auto) 0 % (0-3) Neutrophils # (Auto) 11.5 x10^3/uL (1.8-7.7) Lymphocytes # (Auto) 0.9 x10^3/uL (1.0-4.8) Monocytes # (Auto) 0.4 x10^3/uL (0.0-1.1) Eosinophils # (Auto) 0.0 x10^3/uL (0.0-0.7) Basophils # (Auto) 0.0 x10^3/uL (0.0-0.2) Segmented Neutrophils % 89 % (35-66) Band Neutrophils % 2 % (0-9) Lymphocytes % 7 % (24-48) Monocytes % 1 % (0-10) Metamyelocytes % 1 % (0-0) Nucleated Red Blood Cells 1 Platelet Estimate Adequate (ADEQUATE) Large Platelets Few Giant Platelets Occ Polychromasia Slight Anisocytosis Slight Sodium Level 136 mmol/L (136-145) Potassium Level 4.2 mmol/L (3.5-5.1) Chloride Level 99 mmol/L (98-107) Carbon Dioxide Level 24 mmol/L (21-32) Anion Gap 13 (6-14) Blood Urea Nitrogen 41 mg/dL (7-20) Creatinine 1.5 mg/dL (0.6-1.0) Estimated GFR (Cockcroft-Gault) 33.4 Glucose Level 275 mg/dL (70-99) Calcium Level 8.8 mg/dL (8.5-10.1) Magnesium Level 2.0 mg/dL (1.8-2.4) Vancomycin Level Trough 27.3 mcg/mL (10.0-20.0) Vancomycin Last Dose Date 11/11/19 Vancomycin Last Dose Time 1100 Glucose (Fingerstick) 270 mg/dL (70-99) Medications Current Medications Fentanyl Citrate 30 ml @ 0 mls/hr CONT PRN IV SEE PROTOCOL; Start 11/02/19 at 02:45; Status Cancel Propofol 100 ml @ 0 mls/hr CONT PRN IV SEE PROTOCOL; Start 11/02/19 at 02:45; Status Cancel Fentanyl Citrate (Fentanyl 2ml Vial) 25 mcg PRN Q1HR PRN IV SEE COMMENTS; Start 11/02/19 at 02:45; Status Cancel Fentanyl Citrate (Fentanyl 2ml Vial) 50 mcg PRN Q1HR PRN IV SEE COMMENTS; Start 11/02/19 at 02:45; Status Cancel Chlorhexidine Gluconate (Peridex) 15 ml BID MM ; Start 11/02/19 at 09:00; Status Cancel Morphine Sulfate (Morphine Sulfate) 2 mg PRN Q1HR PRN IV SEE COMMENTS.; Start 11/02/19 at 02:45; Status Cancel Morphine Sulfate (Morphine Sulfate) 4 mg PRN Q1HR PRN IV SEE COMMENTS.; Start 11/02/19 at 02:45; Status Cancel Midazolam HCl 100 ml @ 0 mls/hr CONT PRN IV SEE PROTOCOL; Start 11/02/19 at 02:45; Status Cancel Diphenhydramine HCl (Benadryl) 25 mg PRN Q15MIN PRN IVP EPS Symptoms; Start 11/02/19 at 02:45; Status Cancel Nicardipine HCl 50 mg/Sodium Chloride 250 ml @ 25 mls/hr CONT PRN IV SEE I/O RECORD Last administered on 11/02/19at 16:45; Start 11/02/19 at 03:15 Propofol 100 ml @ As Directed STK-MED ONCE IV ; Start 11/02/19 at 02:49; Stop 11/02/19 at 03:22; Status DC Propofol 100 ml @ 0 mls/hr CONT PRN IV SEE PROTOCOL Last administered on 11/03/19at 11:18; Start 11/02/19 at 03:30; Stop 11/03/19 at 13:54; Status DC Fentanyl Citrate (Fentanyl 2ml Vial) 25 mcg PRN Q1HR PRN IV SEE COMMENTS; Start 11/02/19 at 03:30; Stop 11/06/19 at 10:08; Status DC Fentanyl Citrate (Fentanyl 2ml Vial) 50 mcg PRN Q1HR PRN IV SEE COMMENTS; Start 11/02/19 at 03:30; Stop 11/06/19 at 10:08; Status DC Chlorhexidine Gluconate (Peridex) 15 ml BID MM Last administered on 11/05/19at 08:54; Start 11/02/19 at 09:00; Stop 11/06/19 at 10:08; Status DC Famotidine (Pepcid Vial) 20 mg DAILY IVP Last administered on 11/07/19at 08:39; Start 11/02/19 at 09:00; Stop 11/08/19 at 09:56; Status DC Morphine Sulfate (Morphine Sulfate) 2 mg PRN Q1HR PRN IV SEE COMMENTS. Last administered on 11/04/19at 17:55; Start 11/02/19 at 03:30 Morphine Sulfate (Morphine Sulfate) 4 mg PRN Q1HR PRN IV SEE COMMENTS. Last administered on 11/07/19at 05:18; Start 11/02/19 at 03:30 Potassium Bicarbonate (Potassium Effervescent Tablet) 40 meq 1X ONCE PEG Last administered on 11/02/19at 08:38; Start 11/02/19 at 07:30; Stop 11/02/19 at 07:31; Status DC Potassium Bicarbonate (Potassium Effervescent Tablet) 40 meq 1X ONCE PEG Last administered on 11/02/19 10:02; Start 11/02/19 at 08:00; Stop 11/02/19 at 08:01; Status DC Potassium Bicarbonate (Potassium Effervescent Tablet) 40 meq 1X ONCE PEG Last administered on 11/02/19at 10:41; Start 11/02/19 at 09:00; Stop 11/02/19 at 09:01; Status DC Magnesium Sulfate 50 ml @ 25 mls/hr 1X ONCE IV Last administered on 11/02/19 08:37; Start 11/02/19 at 07:30; Stop 11/02/19 at 09:29; Status DC Famotidine (Pepcid Vial) 20 mg DAILY IVP ; Start 11/02/19 at 09:00; Status UNV Ceftriaxone Sodium (Rocephin) 1 gm Q24H IVP Last administered on 11/04/19at 08:46; Start 11/02/19 at 09:00; Stop 11/04/19 at 15:04; Status DC Levetiracetam 1000 mg/Dextrose 110 ml @ 440 mls/hr Q12HR IV Last administered on 11/03/19 09:13; Start 11/02/19 at 11:00; Stop 11/03/19 at 09:32; Status DC Acetaminophen (Tylenol) 650 mg PRN Q6HRS PRN PO PAIN Last administered on 11/11/19 20:36; Start 11/02/19 at 10:15 Atorvastatin Calcium (Lipitor) 10 mg QHS PO Last administered on 11/11/19 20:33; Start 11/02/19 at 21:00 Carvedilol (Coreg) 3.125 mg BIDWMEALS PO Last administered on 11/03/19 08:02; Start 11/02/19 at 11:00; Stop 11/07/19 at 12:02; Status DC Cetirizine HCl (ZyrTEC) 10 mg DAILY PO Last administered on 11/12/19 08:35; Start 11/02/19 at 11:00 Citalopram Hydrobromide (CeleXA) 15 mg DAILY PO Last administered on 11/03/19at 09:14; Start 11/02/19 at 11:00; Stop 11/03/19 at 13:50; Status DC Clopidogrel Bisulfate (Plavix) 75 mg DAILY PO Last administered on 11/05/19at 08:53; Start 11/02/19 at 11:00; Stop 11/05/19 at 15:30; Status DC Diclofenac Sodium (Voltaren) 1 carlos BID PRN TP BREAKTHROUGH PAIN; Start 11/02/19 at 10:15 Furosemide (Lasix) 20 mg QEVNG PO Last administered on 11/04/19at 17:54; Start 11/02/19 at 18:00; Stop 11/07/19 at 11:59; Status DC Furosemide (Lasix) 40 mg QAM PO Last administered on 11/05/19at 08:54; Start 11/02/19 at 11:00; Stop 11/07/19 at 11:59; Status DC Albuterol Sulfate (Ventolin Neb Soln) 2.5 mg PRN Q4HRS PRN NEB SHORTNESS OF BREATH Last administered on 11/07/19at 20:16; Start 11/02/19 at 10:30 Latanoprost (Xalatan) 1 drop QHS OU Last administered on 11/11/19at 20:33; Start 11/02/19 at 21:00 Lidocaine (Lidoderm) 1 patch PRN DAILY PRN TP PAIN; Start 11/02/19 at 09:00 Pantoprazole Sodium (Protonix) 20 mg DAILYAC PO ; Start 11/03/19 at 07:30; Status UNV Phenol (Chloraseptic) 1 spray PRN Q6HRS PRN MM SORE THROAT; Start 11/02/19 at 10:15 Piperacillin Sod/ Tazobactam Sod 3.375 gm/Sodium Chloride 50 ml @ 100 mls/hr Q6HRS IV Last administered on 11/12/19at 05:24; Start 11/02/19 at 11:00 Vancomycin HCl (Vanco Per Pharmacy) 1 each PRN DAILY PRN MC SEE COMMENTS Last administered on 11/12/19at 06:21; Start 11/02/19 at 10:30 Vancomycin HCl 1 gm/Sodium Chloride 250 ml @ 250 mls/hr Q24H IV Last administered on 11/03/19at 22:57; Start 11/02/19 at 22:00; Stop 11/04/19 at 07:00; Status DC Vancomycin HCl (Vancomycin Trough Level) 1 each 1X ONCE MC Last administered on 11/03/19at 21:30; Start 11/03/19 at 21:30; Stop 11/03/19 at 21:31; Status DC Levetiracetam 500 mg/Dextrose 105 ml @ 420 mls/hr Q12HR IV Last administered on 11/07/19at 08:38; Start 11/03/19 at 21:00; Stop 11/07/19 at 13:16; Status DC Magnesium Sulfate 50 ml @ 25 mls/hr 1X ONCE IV Last administered on 11/03/19at 13:33; Start 11/03/19 at 12:00; Stop 11/03/19 at 13:59; Status DC Sertraline HCl (Zoloft) 50 mg DAILY PO Last administered on 11/12/19at 08:35; Start 11/04/19 at 09:00 Losartan Potassium (Cozaar) 25 mg DAILY NG Last administered on 11/05/19at 08:54; Start 11/03/19 at 14:00; Stop 11/05/19 at 09:40; Status DC Dexmedetomidine HCl 400 mcg/ Sodium Chloride 100 ml @ 0 mls/hr CONT PRN IV PER PROTOCOL Last administered on 11/05/19at 02:05; Start 11/03/19 at 14:00; Stop 11/06/19 at 10:08; Status DC Sodium Chloride 500 ml @ 500 mls/hr 1X PRN PRN IV SEE COMMENTS; Start 11/03/19 at 14:00 Atropine Sulfate (ATROPINE 0.5mg SYRINGE) 0.5 mg PRN Q5MIN PRN IV SEE COMMENTS; Start 11/03/19 at 14:00; Stop 11/07/19 at 12:28; Status DC Vancomycin HCl 1 gm/Sodium Chloride 250 ml @ 250 mls/hr Q18H IV Last administered on 11/11/19at 10:51; Start 11/04/19 at 17:00; Stop 11/12/19 at 06:10; Status DC Vancomycin HCl (Vancomycin Trough Level) 1 each 1X ONCE MC Last administered on 11/06/19at 04:30; Start 11/06/19 at 04:30; Stop 11/06/19 at 04:31; Status DC Losartan Potassium (Cozaar) 50 mg DAILY NG Last administered on 11/08/19at 11:05; Start 11/05/19 at 09:45; Stop 11/08/19 at 14:57; Status DC Epinephrine (S2 Racepinephrine) 0.5 ml 1X ONCE NEB Last administered on 11/05/19at 12:00; Start 11/05/19 at 12:00; Stop 11/05/19 at 12:01; Status DC Methylprednisolone Sodium Succinate (SOLU-Medrol 125MG VIAL) 100 mg 1X ONCE IV Last administered on 11/05/19at 12:15; Start 11/05/19 at 12:00; Stop 11/05/19 at 12:01; Status DC Furosemide (Lasix) 20 mg 1X STAT IVP Last administered on 11/05/19at 12:14; Start 11/05/19 at 12:08; Stop 11/05/19 at 12:12; Status DC Furosemide (Lasix) 20 mg 1X ONCE IVP Last administered on 11/05/19at 14:26; Start 11/05/19 at 14:15; Stop 11/05/19 at 14:16; Status DC Clopidogrel Bisulfate (Plavix) 75 mg DAILY PO Last administered on 11/12/19at 08:36; Start 11/07/19 at 11:00 Metoprolol Tartrate (Lopressor Vial) 5 mg ONCE ONCE IVP Last administered on 11/05/19at 23:56; Start 11/06/19 at 00:00; Stop 11/06/19 at 00:01; Status DC Potassium Chloride (Klor-Con) 40 meq 1X PRN PRN PO PER PROTOCOL; Start 11/05/19 at 23:45 Potassium Bicarbonate (Potassium Effervescent Tablet) 40 meq 1X PRN PRN PO PER PROTOCOL; Start 11/05/19 at 23:45 Potassium Chloride/Water 100 ml @ 100 mls/hr PRN Q1HR PRN IV PER PROTOCOL Last administered on 11/06/19at 06:03; Start 11/05/19 at 23:45; Stop 11/06/19 at 06:11; Status DC Potassium Chloride/Water 100 ml @ 100 mls/hr PRN Q1HR PRN IV PER PROTOCOL; Start 11/05/19 at 23:45 Potassium Chloride (Klor-Con) 40 meq PRN Q2HRS PRN PO PER PROTOCOL; Start 11/05/19 at 23:45 Potassium Chloride/Water 100 ml @ 100 mls/hr PRN Q1HR PRN IV PER PROTOCOL; Start 11/05/19 at 23:45 Potassium Chloride/Water 100 ml @ 100 mls/hr PRN Q1HR PRN IV PER PROTOCOL; Start 11/05/19 at 23:45; Stop 11/06/19 at 07:44; Status DC Potassium Chloride (Klor-Con) 40 meq PRN Q2HRS PRN PO PER PROTOCOL; Start at 23:45 Potassium Chloride/Water 100 ml @ 100 mls/hr PRN Q1HR PRN IV PER PROTOCOL; Start 11/05/19 at 23:45 Potassium Chloride/Water 100 ml @ 100 mls/hr PRN Q1HR PRN IV PER PROTOCOL; Start 11/06/19 at 00:01; Stop 11/06/19 at 07:44; Status DC Magnesium Sulfate 100 ml @ 50 mls/hr PRN DAILY PRN IV PER PROTOCOL; Start 11/06/19 at 00:00 Potassium Phos/ Sodium Phos (Phos-Nak) 1 pkt PRN BID PRN PO PER PROTOCOL; Start 11/06/19 at 09:00 Sodium Phosphate 40 mmol/Sodium Chloride 263.3333 ml @ 62.5 mls/hr 1X PRN PRN IV PER PROTOCOL; Start 11/05/19 at 23:45 Potassium Phosphate 13.6 mmol/Sodium Chloride 254.5333 ml @ 62.5 mls/hr PRN Q4HRS PRN IV PER PROTOCOL; Start 11/05/19 at 23:45 Magnesium Sulfate 50 ml @ 25 mls/hr 1X ONCE IV Last administered on 11/06/19at 00:31; Start 11/06/19 at 01:00; Stop 11/06/19 at 02:59; Status DC Metoprolol Tartrate (Lopressor Vial) 5 mg 1X ONCE IVP Last administered on 11/06/19at 01:52; Start 11/06/19 at 02:00; Stop 11/06/19 at 02:01; Status DC Miscellaneous (Lidoderm Patch Removal) 1 ea PRN QHS PRN MC SEE COMMENTS; Start 11/06/19 at 08:00 Metoprolol Tartrate (Lopressor Vial) 5 mg Q6HRS IVP Last administered on 11/07/19at 05:21; Start 11/06/19 at 12:00; Stop 11/07/19 at 11:59; Status DC Cyanocobalamin (Vitamin B-12) 1,000 mcg DAILY IM Last administered on 11/12/19at 08:34; Start 11/06/19 at 14:30 Furosemide (Lasix) 40 mg 1X ONCE IVP Last administered on 11/06/19at 17:35; Start 11/06/19 at 17:30; Stop 11/06/19 at 17:31; Status DC Amino Acids/ Glycerin/ Electrolytes 1,000 ml @ 80 mls/hr [id number] IV Last administered on 11/12/19at 01:30; Start 11/07/19 at 10:15 Metoprolol Succinate (Toprol Xl) 50 mg DAILY PO Last administered on 11/12/19at 08:35; Start 11/08/19 at 09:00 Furosemide (Lasix) 40 mg DAILY PO Last administered on 11/12/19at 08:36; Start 11/08/19 at 09:00 Lactobacillus Rhamnosus (Culturelle) 1 cap BID PO Last administered on 11/12/19at 08:35; Start 11/07/19 at 21:00 Levetiracetam (Keppra) 500 mg BID PO Last administered on 11/12/19at 08:35; Start 11/07/19 at 21:00 Furosemide (Lasix) 40 mg 1X ONCE IVP Last administered on 11/07/19at 21:55; Start 11/07/19 at 21:45; Stop 11/07/19 at 21:46; Status DC Cyanocobalamin (Vitamin B-12) 1,000 mcg 1X ONCE IM ; Start 11/08/19 at 08:30; Stop 11/08/19 at 08:31; Status DC Potassium Chloride (Klor-Con) 40 meq 1X ONCE PO ; Start 11/08/19 at 09:30; Stop 11/08/19 at 09:31; Status Cancel Furosemide (Lasix) 40 mg 1X ONCE IVP Last administered on 11/08/19at 17:56; Start 11/08/19 at 09:30; Stop 11/08/19 at 09:33; Status DC Pantoprazole Sodium (Protonix) 40 mg DAILYAC PO Last administered on 11/12/19at 06:10; Start 11/09/19 at 07:30 Potassium Chloride (Klor-Con) 40 meq 1X ONCE PO Last administered on 11/08/19at 11:31; Start 11/08/19 at 10:45; Stop 11/08/19 at 10:46; Status DC Potassium Chloride (Klor-Con) 40 meq 1X ONCE PO Last administered on 11/08/19at 17:56; Start 11/08/19 at 12:30; Stop 11/08/19 at 12:31; Status DC Potassium Chloride (Klor-Con) 40 meq 1X ONCE PO ; Start 11/08/19 at 11:15; Stop 11/08/19 at 11:16; Status DC Sacubitril/ Valsartan (Entresto 24 Mg-26 Mg) 1 tab BID PO Last administered on 11/12/19at 08:35; Start 11/10/19 at 09:00 Labetalol HCl (Normodyne Iv Push) 20 mg PRN Q2HR PRN IVP HYPERTENSION Last administered on 11/11/19at 00:51; Start 11/11/19 at 00:30 Vancomycin HCl (Vancomycin Trough Level) 1 each 1X ONCE MC Last administered on 11/12/19at 04:30; Start 11/12/19 at 04:30; Stop 11/12/19 at 04:31; Status DC Prednisone (Prednisone) 40 mg 1X ONCE PO Last administered on 11/11/19at 18:01; Start 11/11/19 at 17:30; Stop 11/11/19 at 17:33; Status DC Prednisone (Prednisone) 40 mg 1X ONCE PO Last administered on 11/11/19at 23:25; Start 11/11/19 at 23:00; Stop 11/11/19 at 23:01; Status DC Prednisone (Prednisone) 40 mg 1X ONCE PO Last administered on 11/12/19at 06:10; Start 11/12/19 at 07:00; Stop 11/12/19 at 07:01; Status DC Vancomycin HCl (Vancomycin Random Level) 1 each 1X ONCE MC ; Start 11/13/19 at 05:00; Stop 11/13/19 at 05:01 Active Scripts Active Reported Januvia (Sitagliptin Phosphate) 100 Mg Tablet 1 Tab PO DAILY Pantoprazole Sodium (Pantoprazole Sodium) 40 Mg Tablet.dr 20 Mg PO DAILYAC Glimepiride 1 Mg Tablet 1 Tab PO DAILY Hydrocodone-Apap 5-325 (Hydrocodone Bit/Acetaminophen) 1 Tab Tablet 1 Tab PO PRN Q6HRS PRN Lisinopril 10 Mg Tablet 1 Tab PO DAILY Acetaminophen 500 Mg Tablet 1 Tab PO BID Trazodone Hcl 50 Mg Tablet 0.5 Tab PO QHS Omeprazole 20 Mg Capsule.dr 1 Cap PO DAILY Novolog (Insulin Aspart) 100 Unit/1 Ml Cartridge 100 Unit SQ QIDACHS Naproxen 500 Mg Tablet 1 Tab PO PRN Q8HRS PRN Lidocaine PATCH (Lidocaine) 1 Each Adh..patch 1 Each TP DAILY REMOVE AFTER 12 HOURS Latanoprost 2.5 Ml Drops 1 Drop EACHEYE QHS Duoneb 0.5-3(2.5) Mg/3 Ml (Albuterol/Ipratropium) 3 Ml Ampul.neb 3 Ml NEB PRN Q4HRS PRN Imodium A-D (Loperamide HCl) 2 Mg Capsule 2 Mg PO PRN PRN Flonase Allergy Relief (Fluticasone Propionate) 9.9 Ml [place].susp 1 Sprays NS P RN Q12HRS PRN Coreg (Carvedilol) 3.125 Mg Tablet 3.125 Mg PO BIDWMEALS Chloraseptic (Phenol) 20 Ml [place] 1 [place] MM PRN Q6HRS PRN Calcium Citrate 250 Mg Tablet 500 Mg PO DAILY Tylenol (Acetaminophen) 325 Mg Tablet 2 Tab PO PRN Q6HRS PRN Atorvastatin Calcium 10 Mg Tablet 1 Tab PO QHS Proair Respiclick (Albuterol Sulfate) 90 Mcg Aer.pow.ba 1 Puff IH PRN Q6HRS PRN Alendronate Sodium 70 Mg Tablet 1 Tab PO WEEKLY Citalopram Hbr (Citalopram Hydrobromide) 10 Mg Tablet 1.5 Tab PO DAILY Cetirizine Hcl 10 Mg Tablet 1 Tab PO DAILY Guaifenesin 600 Mg Tablet.er 600 Mg PO PRN Q8HRS PRN Clopidogrel (Clopidogrel Bisulfate) 75 Mg Tablet 1 Tab PO DAILY Novolog Flexpen (Insulin Aspart) 100 Unit/1 Ml Insuln.pen 0-3 Unit SQ QIDACHS PATIENT SLIDING SCALE. 70-249= 0 UNITS. 250-400= 3UNITS. BEFORE MEALS AND AT BEDTIME GIVE 3 UNITS IF BLOOD SUGAR 250 OR ABOVE. Diclofenac Sodium 100 Gm Gel..gram. 1 [place] TP DAILY D3-50 (Cholecalciferol (Vitamin D3)) 50,000 Unit Capsule 50,000 Unit PO DAILY Trazodone Hcl 50 Mg Tablet 0.5 Tab PO QHS Reglan (Metoclopramide Hcl) 5 Mg Tablet 5 Mg PO DAILY Protonix (Pantoprazole Sodium) 20 Mg Tablet.dr 1 Tab PO DAILY [place] 5-325 Tablet (Hydrocodone Bit/Acetaminophen) 1 Each Tablet 1 Tab PO Q4HRS Naproxen 500 Mg Tablet 1 Tab PO Q8HRS Lisinopril 2.5 Mg Tablet 1 Tab PO DAILY Lidocaine PATCH (Lidocaine) 1 Each Adh..patch 1 Each TP DAILY REMOVE AFTER 12 HOURS Lasix (Furosemide) 20 Mg Tablet 1 Tab PO DAILY 30 Days Duoneb 0.5-3(2.5) Mg/3 Ml (Albuterol/Ipratropium) 3 Ml Ampul.neb 3 Ml NEB QID Imodium A-D (Loperamide HCl) 2 Mg Capsule 2 Mg PO DAILY Guaifenesin 400 Mg Tablet 400 Mg PO Q8HRS Coreg (Carvedilol) 3.125 Mg Tablet 3.125 Mg PO BID Clopidogrel (Clopidogrel Bisulfate) 75 Mg Tablet 75 Mg PO DAILY Citalopram Hbr (Citalopram Hydrobromide) 10 Mg Tablet 10 Mg PO DAILY Atorvastatin Calcium 10 Mg Tablet 10 Mg PO DAILY Proair Hfa Inhaler (Albuterol Sulfate) 8.5 Gm Hfa.aer.ad 1 Puff INH PRN Q6HRS Acetaminophen 500 Mg Tablet 1 Tab PO PRN Q6HRS Glimepiride 1 Mg Tablet 1 Mg PO DAILY Simvastatin 40 Mg Tablet 40 Mg PO HS Omeprazole 20 Mg Capsule.dr 20 Mg PO DAILY Januvia (Sitagliptin Phosphate) 100 Mg Tablet 100 Mg PO DAILY Vitals/I & O Vital Sign - Last 24 Hours 11/11/19 11/11/19 11/11/19 11/11/19 10:51 15:00 18:45 19:45 Temp 97.7 97.8 97.8 97.7 97.8 97.8 Pulse 95 90 92 Resp 20 20 20 B/P (MAP) 167/102 (123) 174/90 (118) 146/74 (98) Pulse Ox 94 98 93 O2 Delivery Nasal Cannula Nasal Cannula Nasal Cannula Nasal Cannula O2 Flow Rate 6.0 6.0 6.0 4.0 11/11/19 11/11/19 11/11/19 11/12/19 20:34 23:19 23:39 03:00 Temp 98.7 97.9 98.7 97.9 Pulse 93 98 96 Resp 18 18 B/P (MAP) 146/74 193/100 (131) 167/96 (119) 174/94 (120) Pulse Ox 93 95 O2 Delivery Nasal Cannula Nasal Cannula O2 Flow Rate 4.0 5.0 11/12/19 11/12/19 11/12/19 11/12/19 07:22 07:50 07:51 08:35 Temp 97.0 97.0 Pulse 104 104 Resp 22 B/P (MAP) 191/106 (134) 191/106 Pulse Ox 94 90 90 O2 Delivery Nasal Cannula Nasal Cannula Nasal Cannula O2 Flow Rate 5.0 2.0 2.0 11/12/19 08:35 Pulse 104 B/P (MAP) 191/106 Intake and Output 11/11/19 11/11/19 11/12/19 15:00 23:00 07:00 Intake Total 0 ml 70 ml 60 ml Output Total 360 ml 550 ml Balance 0 ml -290 ml -490 ml Justicifation of Admission Dx: Justifications for Admission: Justification of Admission Dx: Yes Respiratory Failure: Mechanical Ventilation Altered Mental Status: Altered Mental Status FERNANDO TOSCANO MD Nov 12, 2019 08:50
--- NOTE | 2019-11-12 10:10 | PDOC ---
Subjective: Subjective: Needs to go get her glasses. Objective: Objective: D/w nurse - smears of stool, no appetite, for heart cath today. Vital Signs: Vital Signs Date Time Temp Pulse Resp B/P (MAP) Pulse Ox O2 Delivery O2 Flow Rate FiO2 11/12/19 08:35 104 191/106 11/12/19 07:51 11/12/19 07:22 97.0 22 97.0 Labs: Laboratory Tests Test 11/11/19 11:47 11/11/19 13:00 11/11/19 16:45 11/11/19 20:32 Glucose (Fingerstick) 218 mg/dL 197 mg/dL 276 mg/dL White Blood Count 14.0 x10^3/uL Red Blood Count 2.81 x10^6/uL Hemoglobin 8.6 g/dL Hematocrit 24.9 % Mean Corpuscular Volume 89 fL Mean Corpuscular Hemoglobin 31 pg Mean Corpuscular Hemoglobin Concent 35 g/dL Red Cell Distribution Width 16.2 % Platelet Count 389 x10^3/uL Neutrophils (%) (Auto) 79 % Lymphocytes (%) (Auto) 9 % Monocytes (%) (Auto) 10 % Eosinophils (%) (Auto) 0 % Basophils (%) (Auto) 1 % Neutrophils # (Auto) 11.1 x10^3/uL Lymphocytes # (Auto) 1.3 x10^3/uL Monocytes # (Auto) 1.4 x10^3/uL Eosinophils # (Auto) 0.0 x10^3/uL Basophils # (Auto) 0.2 x10^3/uL Sodium Level 134 mmol/L Potassium Level 3.6 mmol/L Chloride Level 99 mmol/L Carbon Dioxide Level 22 mmol/L Anion Gap 13 Blood Urea Nitrogen 35 mg/dL Creatinine 1.3 mg/dL Estimated GFR (Cockcroft-Gault) 39.4 Glucose Level 226 mg/dL Calcium Level 8.7 mg/dL Phosphorus Level 2.4 mg/dL Magnesium Level 1.9 mg/dL Test 11/12/19 04:33 11/12/19 07:34 White Blood Count 12.8 x10^3/uL Red Blood Count 2.80 x10^6/uL Hemoglobin 8.6 g/dL Hematocrit 25.2 % Mean Corpuscular Volume 90 fL Mean Corpuscular Hemoglobin 31 pg Mean Corpuscular Hemoglobin Concent 34 g/dL Red Cell Distribution Width 16.4 % Platelet Count 420 x10^3/uL Neutrophils (%) (Auto) 90 % Lymphocytes (%) (Auto) 7 % Monocytes (%) (Auto) 3 % Eosinophils (%) (Auto) 0 % Basophils (%) (Auto) 0 % Neutrophils # (Auto) 11.5 x10^3/uL Lymphocytes # (Auto) 0.9 x10^3/uL Monocytes # (Auto) 0.4 x10^3/uL Eosinophils # (Auto) 0.0 x10^3/uL Basophils # (Auto) 0.0 x10^3/uL Segmented Neutrophils % 89 % Band Neutrophils % 2 % Lymphocytes % 7 % Monocytes % 1 % Metamyelocytes % 1 % Nucleated Red Blood Cells 1 Platelet Estimate Adequate Large Platelets Few Giant Platelets Occ Polychromasia Slight Anisocytosis Slight Sodium Level 136 mmol/L Potassium Level 4.2 mmol/L Chloride Level 99 mmol/L Carbon Dioxide Level 24 mmol/L Anion Gap 13 Blood Urea Nitrogen 41 mg/dL Creatinine 1.5 mg/dL Estimated GFR (Cockcroft-Gault) 33.4 Glucose Level 275 mg/dL Calcium Level 8.8 mg/dL Magnesium Level 2.0 mg/dL Vancomycin Level Trough 27.3 mcg/mL Vancomycin Last Dose Date 11/11/19 Vancomycin Last Dose Time 1100 Glucose (Fingerstick) 270 mg/dL PE: GEN: aggravated LUNGS: diminished HEART: tachycardic ABD: S/ND/NT NEURO/PSYCH: confused, yelling A/P: Resp failure, CHF, encephalopathy/dementia Normocytic anemia - ACD/B12 deficient - stable Anorexia Diarrhea - better -- Stable GI-stewart, continue same. Justicifation of Admission Dx: Justifications for Admission: Justification of Admission Dx: Yes Respiratory Failure: Mechanical Ventilation Altered Mental Status: Altered Mental Status MARKOS PATINO Nov 12, 2019 10:10
[2019-11-12] MEDS ORDERED: FAMOTIDINE 20 MG/2 ML VIAL IVP ONE (10:45)
[2019-11-12] MEDS ORDERED: methylPREDNISolone SOD SUCC PF 125 MG/2 ML VIAL. IV ONE (10:45)
[2019-11-12] MEDS ORDERED: diphenhydrAMINE 50 MG/ML VIAL IVP ONE (10:45)
[2019-11-12 11:34] LABS: CALCIUM 9.4 mg/dL (8.5-10.1); CREATININE 1.4 mg/dL (0.6-1.0); GFR 36.2; POTASSIUM 3.8 mmol/L (3.5-5.1)
[2019-11-12] MEDS: LABETALOL 20 MG/4 ML DISP.SYRIN. IVP PRN ×2 (12:07→18:15)
[2019-11-12] MEDS ORDERED: LIDOCAINE 1% Multi-Dose 20 ML VIAL. ONE (12:42)
[2019-11-12] MEDS ORDERED: IODIXANOL 320 MG/ML 100 ML VIAL. ONE (12:43)
[2019-11-12] MEDS ORDERED: fentaNYL PF VIAL 100 MCG/2 ML VIAL ONE (12:44)
[2019-11-12] MEDS ORDERED: MIDAZOLAM HCL/PF 2 MG/2 ML VIAL. ONE (12:44)
[2019-11-12] MEDS ORDERED: NITROGLYCERIN 200 MCG/2 ML SYRINGE FOR CATH/VASC LAB. ONE (12:44)
[2019-11-12] MEDS ORDERED: HEPARIN for IV BOLUS 10,000 UNIT/10 ML VIAL. ONE (12:44)
[2019-11-12] MEDS ORDERED: VERAPAMIL 5 MG/2 ML VIAL. ONE (12:44)
--- NOTE | 2019-11-12 13:29 | PN ---
DATE: 11/12/2019 SUBJECTIVE: The patient is resting, slightly propped up in bed, somewhat tachypneic, pale, but no jaundice, cyanosis or thyromegaly. No jugular venous distention. No lower limb edema. OBJECTIVE: VITAL SIGNS: Her heart rate was 104, blood pressure was 191/106, temperature 97, respiratory rate was 22 and oxygen saturation was 94% on 5 liters of oxygen. HEAD, EYES, EARS, NOSE AND THROAT: Showed normocephalic, atraumatic. NECK: Supple. HEART: Showed normal first and second heart sounds. No gallop, rub or murmur. CHEST: Shows central trachea, equal bilateral expansion, air entry, vesicular sounds with bilateral crepitation. I could not appreciate any rhonchi. ABDOMEN: Distended, soft, nontender. No guarding or rigidity. No organomegaly. All hernial orifices intact. Bowel sounds normal. NEUROLOGIC: She is demented, somewhat confused, but there is no obvious lateralizing sign. All her cranial nerves intact. She moves extremities without difficulty. Her intake over the last 24 hours was 325, output was 1100. LABORATORY DATA: As of this morning, her white cell count was 12,800; hemoglobin 8.6; hematocrit 25; MCV 90 and platelet count 420,000. Her chemistry showed a serum sodium 136, potassium 4.2, chloride 99, bicarbonate 24, anion gap of 13, BUN 41, creatinine 1.5, estimated GFR was 33 mL per minute. Her glucose 175 and calcium was 8.8, magnesium 2. ASSESSMENT: 1. Acute respiratory failure secondary to aspiration pneumonia, for which she was intubated and mechanically ventilated; however, she was successfully extubated on 11/05/2019. 2. Flash pulmonary edema due to accelerated hypertension. Post-extubation, improved. 3. Accelerated hypertension for which she was on Cardene drip. She is on metoprolol succinate 50 mg once a day. 4. New onset tonic-clonic seizures for which she is on Keppra 500 mg twice a day. No further evidence of seizures documented. 5. Hypokalemia, resolved. Her most recent serum potassium was up to 4.9. 6. Mildly elevated troponin, felt to be likely demand ischemia. 7. Yrpqk-hj-gavaxlb systolic congestive heart failure. Her left ventricular systolic function is severely impaired with ejection fraction of only 25%. 8. Anemia without any obvious site of bleeding. 9. Her MRI showed signal abnormality within the posterior temporoparietal and occipital subcortical white matter that may represents posterior reversible encephalopathy syndrome. 10. The patient has severe protein-calorie malnutrition, serum albumin is only 2.2. 11. The patient is apparently scheduled for cardiac catheterization. PLAN: To continue obviously with Keppra for seizure disorder. Continue with metoprolol for high blood pressure and also furosemide for acute on chronic systolic congestive heart failure. Continue with Zosyn and vancomycin. FINESSE GEORGES MD DR: IRISH/shubham JOB#: [id number] / [id number]
[2019-11-12] MEDS ORDERED: VERAPAMIL 5 MG/2 ML VIAL. IART ONE (13:45)
[2019-11-12] MEDS ORDERED: LIDOCAINE 1% Multi-Dose 20 ML VIAL. INJ ONE (13:45)
[2019-11-12] MEDS ORDERED: HEPARIN for IV BOLUS 10,000 UNIT/10 ML VIAL. IART ONE (13:45)
[2019-11-12] MEDS ORDERED: fentaNYL PF VIAL 100 MCG/2 ML VIAL IV ONE (13:45)
[2019-11-12] MEDS ORDERED: NITROGLYCERIN 200 MCG/2 ML SYRINGE FOR CATH/VASC LAB. IART ONE (13:45)
[2019-11-12] MEDS ORDERED: IODIXANOL 320 MG/ML 100 ML VIAL. IART ONE (13:45)
[2019-11-12] MEDS: hydrALAZINE 20 MG/ML VIAL. IVP PRN (14:36)
[2019-11-12] MEDS ORDERED: FUROSEMIDE 40 MG/4 ML VIAL. IVP ONE (16:00)
--- NOTE | 2019-11-12 16:23 | RAD ---
Exam: Chest one INDICATION: CHF TECHNIQUE: Frontal view of the chest Comparisons: 11/06/2019 FINDINGS: The cardiomediastinal silhouette is within normal limits. Pulmonary vessels are obscured. Increasing hazy opacities in lungs bilaterally. There is a small left-sided pleural effusion. IMPRESSION: Findings likely related to worsening pulmonary edema. Electronically signed by: Andre Barrera MD (11/12/2019 4:20 PM) [id number]
--- NOTE | 2019-11-12 16:26 | CARD ---
MR#: [id number] Date of Study: 11/12/2019 Ordering Physician: ALEXANDRA OTTO, Referring Physician: ALEXANDRA OTTO, Tech: NOELLE MENDOSA RTR APPROVED REPORT Technologist: NOELLE MENDOSA RTR Nurse: Cari Sandoval R.N. Procedure(s) performed: NO MODERATE SEDATION GIVEN FLUORO TIME: 2.5 MIN DOSE: 19.2 GYCM2 CONTRAST: 27CC VISI C, Coronary angiography HISTORY : The patient is a 79 year-old male with a history of . INDICATION The indication(s) include : non-STEMI . CS Clinical Frailty Scale CS Clinical Frailty Scale: Severely Frail Heart Failure Heart Failure: Yes If Yes, Newly Diagnosed: No If Yes, HF Type: Diastolic Systolic If Yes, NYHA Class: Class III PROCEDURE NARRATIVE INFORMED CONSENT: After explaining the risks and benefits of the procedure and alternatives, informed consent was obtained. The patient was brought electively to the cardiac catheterization lab. A timeout was performed confi rming the patient's name, date of , procedure, and site of procedure. All necessary personnel w ere wearing the appropriate protective equipment and radiation monitor devices. (See nursing notes for medications administered). ACCESS: The right wrist was sterilely prepped and draped in the usual fashion. The right wrist was infiltrat ed with 1 mL of 2% lidocaine for subcutaneous anesthesia. A 6 Indonesian Terumo glide sheath was inserte d into the right radial artery without difficulty. CORONARY ANGIOGRAPHY: Right and left coronary angiography was performed using a 6Fr TIG 4.0 catheter. Left ventricular en d diastolic pressure was obtained with a pigtail catheter and pullback was performed. All catheter e xchanges and advancements were performed over a guidewire. CLOSURE: At case completion the right radial sheath was removed and a Terumo radial band was applied with 13 m l of air. COMPLICATIONS: The patient tolerated the procedure well and there were no immediate complications. FINDINGS: HEMODYNAMICS: LVEDP 33 Mm Hg No gradient on LV to aortic and pullback. CORONARY ANGIOGRAPHY: LM is a large caliber vessel with normal angiographic appearance. LAD is a large caliber vessel with mild luminal irregularities. Ramus is a moderate caliber vessel with normal angiographic apeparance. LCx is a moderate caliber non-dominant vessel with normal angiographic appearance. OM1 is a moderate caliber vessel with normal angiographic appearance. RCA is a large caliber dominant vessel with mild luminal irregularities. RPDA and RPL are small caliber vessels with normal angiographic appearance. Conclusion 1. Acute on chronic systolic and diastolic HF 2. No significant coronary disease. Recommendations Aggressive Medical Therapy Signed by : Alexandra Otto, Electronically Approved : 11/12/2019 16:25:59
[2019-11-12] MEDS: LATANOPROST 0.005% OPHTH SOLUTION 2.5ML BOTTLE. OU SCH (20:47)
[2019-11-12] MEDS: ATORVASTATIN CALCIUM 10 MG TABLET. PO SCH (20:48)
[2019-11-13] VITALS (7 sets, daily range): BP systolic 135–184; BP diastolic 56–99
[2019-11-13] MEDS: PIPERACILLIN/TAZOBACTAM 3.375 GM in IV NORMAL SALINE 50ML 50 ML IV SCH ×4 (00:15→18:33)
[2019-11-13] MEDS: LABETALOL 20 MG/4 ML DISP.SYRIN. IVP PRN (03:18)
[2019-11-13] MEDS ORDERED: VANCOMYCIN RANDOM LEVEL. MC ONE ×2 (05:00→17:00)
[2019-11-13] MEDS ORDERED: VANCOMYCIN PER PHARMACY MC STA (05:30)
[2019-11-13] MEDS: VANCOMYCIN PER PHARMACY MC PRN ×2 (06:11→19:04)
--- NOTE | 2019-11-13 06:15 | NUR ---
Pharmacy Vancomycin Dosing Note S: Consulted to monitor and dose vancomycin started 11/01/19. O: GUILLERMO JIMENEZ is a 79 year old F with Pneumonia, . Other Antibiotics: Zosyn 3.375GM IV q6hrs LABS: Last BUN: 46 Last Creatinine: 1.4 Creatinine Clearance: 30 mL/min Last WBC: 12.8 Last Procalcitonin: - Tmax (past 24 hours): 98.0 Microbiology: 6/25 CINDY 5DAYS I/O: 130/910 Drug Levels: Last Trough level: 22.1 on 11/13/19 at 0427 Last dose given 11/11/19 at 1051 Vancomycin Dosing: Dosing Weight: Actual Target Trough: 15-20 A: Based on: Trough(High), Actual Wt and CrCl P: 1. NO DOSE AT THIS TIME--- FUTURE DOSE DEPENDENT UPON 1700 TROUGH RESULT 2. Follow up Random level on 11/13/19 at 1700 3. Pharmacy will continue to monitor, follow and adjust therapy as needed. JAMIE MEJIAS RPH, 11/13/19 0615 Signed: 11/13/19 at 0619 by JAMIE MEJIAS RPH PHA
[2019-11-13] MEDS: AMINO AC 3%/ELECTROLYTE/GLYCER 1,000 ML IV SCH ×3 (07:35→21:46)
[2019-11-13] MEDS: levETIRAcetam 500 MG TABLET PO SCH ×2 (07:39→21:42)
[2019-11-13] MEDS: CLOPIDOGREL BISULFATE 75 MG TABLET PO SCH (07:39)
[2019-11-13] MEDS: CETIRIZINE HCL 10 MG TABLET. PO SCH (07:40)
[2019-11-13] MEDS: METOPROLOL SUCC 24HR ER 50 MG TAB.ER.24H. PO SCH (07:40)
[2019-11-13] MEDS: LACTOBACILLUS RHAMNOSUS GG 1 CAPSULE. PO SCH ×2 (07:40→21:42)
[2019-11-13] MEDS: SERTRALINE 50 MG TABLET. PO SCH (07:40)
[2019-11-13] MEDS: SACUBITRIL/VALSARTAN 24/26MG TABLET. PO SCH ×2 (07:40→21:44)
[2019-11-13] MEDS: FUROSEMIDE 40 MG TABLET. PO SCH (07:41)
[2019-11-13] MEDS: PANTOPRAZOLE 40 MG TABLET.DR. PO SCH (07:41)
[2019-11-13] MEDS: CYANOCOBALAMIN (VITAMIN B-12) 1,000 MCG/ML VIAL IM SCH (07:41)
[2019-11-13] MEDS: hydrALAZINE 20 MG/ML VIAL. IVP PRN ×2 (08:03→14:59)
--- NOTE | 2019-11-13 08:36 | PDOC ---
PULMONARY PROGRESS NOTES Subjective Extubated 11/04 Currently off of BiPAP no respiratory distress Vitals Vital Signs Date Time Temp Pulse Resp B/P (MAP) Pulse Ox O2 Delivery O2 Flow Rate FiO2 11/13/19 08:03 90 175/89 11/13/19 07:00 98.0 22 99 Nasal Cannula 3.0 98.0 ROS: No Nausea, No Chest Pain, No Abdominal Pain, No Increase Cough General: Alert Lungs: Clear Cardiovascular: S1 Abdomen: Soft Neuro Exam: Alert Extremities: No Edema Skin: Warm Labs Laboratory Tests Test 11/11/19 11:00 11/11/19 11:47 11/11/19 13:00 11/11/19 16:45 Clostridium difficile Toxin (PCR) Negative (NEGATIVE) Glucose (Fingerstick) 218 mg/dL (70-99) 197 mg/dL (70-99) White Blood Count 14.0 x10^3/uL (4.0-11.0) Red Blood Count 2.81 x10^6/uL (3.50-5.40) Hemoglobin 8.6 g/dL (12.0-15.5) Hematocrit 24.9 % (36.0-47.0) Mean Corpuscular Volume 89 fL (79-100) Mean Corpuscular Hemoglobin 31 pg (25-35) Mean Corpuscular Hemoglobin Concent 35 g/dL (31-37) Red Cell Distribution Width 16.2 % (11.5-14.5) Platelet Count 389 x10^3/uL (140-400) Neutrophils (%) (Auto) 79 % (31-73) Lymphocytes (%) (Auto) 9 % (24-48) Monocytes (%) (Auto) 10 % (0-9) Eosinophils (%) (Auto) 0 % (0-3) Basophils (%) (Auto) 1 % (0-3) Neutrophils # (Auto) 11.1 x10^3/uL (1.8-7.7) Lymphocytes # (Auto) 1.3 x10^3/uL (1.0-4.8) Monocytes # (Auto) 1.4 x10^3/uL (0.0-1.1) Eosinophils # (Auto) 0.0 x10^3/uL (0.0-0.7) Basophils # (Auto) 0.2 x10^3/uL (0.0-0.2) Sodium Level 134 mmol/L (136-145) Potassium Level 3.6 mmol/L (3.5-5.1) Chloride Level 99 mmol/L (98-107) Carbon Dioxide Level 22 mmol/L (21-32) Anion Gap 13 (6-14) Blood Urea Nitrogen 35 mg/dL (7-20) Creatinine 1.3 mg/dL (0.6-1.0) Estimated GFR (Cockcroft-Gault) 39.4 Glucose Level 226 mg/dL (70-99) Calcium Level 8.7 mg/dL (8.5-10.1) Phosphorus Level 2.4 mg/dL (2.6-4.7) Magnesium Level 1.9 mg/dL (1.8-2.4) Test 11/11/19 20:32 11/12/19 04:33 11/12/19 07:34 11/12/19 11:10 Glucose (Fingerstick) 276 mg/dL (70-99) 270 mg/dL (70-99) White Blood Count 12.8 x10^3/uL (4.0-11.0) Red Blood Count 2.80 x10^6/uL (3.50-5.40) Hemoglobin 8.6 g/dL (12.0-15.5) Hematocrit 25.2 % (36.0-47.0) Mean Corpuscular Volume 90 fL (79-100) Mean Corpuscular Hemoglobin 31 pg (25-35) Mean Corpuscular Hemoglobin Concent 34 g/dL (31-37) Red Cell Distribution Width 16.4 % (11.5-14.5) Platelet Count 420 x10^3/uL (140-400) Neutrophils (%) (Auto) 90 % (31-73) Lymphocytes (%) (Auto) 7 % (24-48) Monocytes (%) (Auto) 3 % (0-9) Eosinophils (%) (Auto) 0 % (0-3) Basophils (%) (Auto) 0 % (0-3) Neutrophils # (Auto) 11.5 x10^3/uL (1.8-7.7) Lymphocytes # (Auto) 0.9 x10^3/uL (1.0-4.8) Monocytes # (Auto) 0.4 x10^3/uL (0.0-1.1) Eosinophils # (Auto) 0.0 x10^3/uL (0.0-0.7) Basophils # (Auto) 0.0 x10^3/uL (0.0-0.2) Segmented Neutrophils % 89 % (35-66) Band Neutrophils % 2 % (0-9) Lymphocytes % 7 % (24-48) Monocytes % 1 % (0-10) Metamyelocytes % 1 % (0-0) Nucleated Red Blood Cells 1 Platelet Estimate Adequate (ADEQUATE) Large Platelets Few Giant Platelets Occ Polychromasia Slight Anisocytosis Slight Sodium Level 136 mmol/L (136-145) 132 mmol/L (136-145) Potassium Level 4.2 mmol/L (3.5-5.1) 3.8 mmol/L (3.5-5.1) Chloride Level 99 mmol/L (98-107) 98 mmol/L (98-107) Carbon Dioxide Level 24 mmol/L (21-32) 18 mmol/L (21-32) Anion Gap 13 (6-14) 16 (6-14) Blood Urea Nitrogen 41 mg/dL (7-20) 46 mg/dL (7-20) Creatinine 1.5 mg/dL (0.6-1.0) 1.4 mg/dL (0.6-1.0) Estimated GFR (Cockcroft-Gault) 33.4 36.2 Glucose Level 275 mg/dL (70-99) 307 mg/dL (70-99) Calcium Level 8.8 mg/dL (8.5-10.1) 9.4 mg/dL (8.5-10.1) Magnesium Level 2.0 mg/dL (1.8-2.4) Vancomycin Level Trough 27.3 mcg/mL (10.0-20.0) Vancomycin Last Dose Date 11/11/19 Vancomycin Last Dose Time 1100 Test 11/12/19 12:04 11/12/19 16:06 11/12/19 20:47 11/13/19 04:27 Glucose (Fingerstick) 307 mg/dL (70-99) 292 mg/dL (70-99) 326 mg/dL (70-99) Random Vancomycin Level 22.1 mcg/mL Test 11/13/19 07:38 Glucose (Fingerstick) 333 mg/dL (70-99) Laboratory Tests Test 11/12/19 11:10 11/12/19 12:04 11/12/19 16:06 11/12/19 20:47 Sodium Level 132 mmol/L (136-145) Potassium Level 3.8 mmol/L (3.5-5.1) Chloride Level 98 mmol/L (98-107) Carbon Dioxide Level 18 mmol/L (21-32) Anion Gap 16 (6-14) Blood Urea Nitrogen 46 mg/dL (-20) Creatinine 1.4 mg/dL (0.6-1.0) Estimated GFR (Cockcroft-Gault) 36.2 Glucose Level 307 mg/dL (70-99) Calcium Level 9.4 mg/dL (8.5-10.1) Glucose (Fingerstick) 307 mg/dL (70-99) 292 mg/dL (70-99) 326 mg/dL (70-99) Test 11/13/19 04:27 11/13/19 07:38 Random Vancomycin Level 22.1 mcg/mL Glucose (Fingerstick) 333 mg/dL (70-99) Medications Active Scripts Medications Dose Route/Sig Max Daily Dose Days Date Category Dose Instructions Kristie (Sitagliptin Phosphate) 100 Mg Tablet 1 Tab PO DAILY 11/02/19 Reported Pantoprazole Sodium (Pantoprazole Sodium) 40 Mg Tablet. 20 Mg PO DAILYAC 11/02/19 Reported Glimepiride 1 Mg Tablet 1 Tab PO DAILY 11/02/19 Reported Hydrocodone-Apap 5-325 (Hydrocodone Bit/Acetaminophen) 1 Tab Tablet 1 Tab PO PRN Q6HRS PRN 11/02/19 Reported Lisinopril 10 Mg Tablet 1 Tab PO DAILY 11/02/19 Reported Acetaminophen 500 Mg Tablet 1 Tab PO BID 11/30/18 Reported Trazodone Hcl 50 Mg Tablet 0.5 Tab PO QHS 11/30/18 Reported Omeprazole 20 Mg Capsule. 1 Cap PO DAILY 11/30/18 Reported Novolog (Insulin Aspart) 100 Unit/1 Ml Cartridge 100 Unit SQ QIDACHS 11/30/18 Reported Naproxen 500 Mg Tablet 1 Tab PO PRN Q8HRS PRN 11/30/18 Reported Lidocaine PATCH (Lidocaine) 1 Each Adh..patch 1 Each TP DAILY 11/30/18 Reported REMOVE AFTER 12 HOURS Latanoprost 2.5 Ml Drops 1 Drop EACHEYE QHS 11/30/18 Reported Duoneb 0.5-3(2.5) Mg/3 Ml (Albuterol/Ipratropium) 3 Ml Ampul.neb 3 Ml NEB PRN Q4HRS PRN 11/30/18 Reported Imodium A-D (Loperamide HCl) 2 Mg Capsule 2 Mg PO PRN PRN 11/30/18 Reported Flonase Allergy Relief (Fluticasone Propionate) 9.9 Ml [place]inton.susp 1 Sprays NS PRN Q12HRS PRN 11/30/18 Reported Coreg (Carvedilol) 3.125 Mg Tablet 3.125 Mg PO BIDWMEALS 11/30/18 Reported Chloraseptic (Phenol) 20 Ml Vinton 1 [place]inton MM PRN Q6HRS PRN 11/30/18 Reported Calcium Citrate 250 Mg Tablet 500 Mg PO DAILY 11/30/18 Reported Tylenol (Acetaminophen) 325 Mg Tablet 2 Tab PO PRN Q6HRS PRN 11/30/18 Reported Atorvastatin Calcium 10 Mg Tablet 1 Tab PO QHS 11/30/18 Reported Proair Respiclick (Albuterol Sulfate) 90 Mcg Aer.pow.ba 1 Puff IH PRN Q6HRS PRN 01/18/17 Reported Alendronate Sodium 70 Mg Tablet 1 Tab PO WEEKLY 01/18/17 Reported Citalopram Hbr (Citalopram Hydrobromide) 10 Mg Tablet 1.5 Tab PO DAILY 01/18/17 Reported Cetirizine Hcl 10 Mg Tablet 1 Tab PO DAILY 01/18/17 Reported Guaifenesin 600 Mg Tablet.er 600 Mg PO PRN Q8HRS PRN 01/18/17 Reported Clopidogrel (Clopidogrel Bisulfate) 75 Mg Tablet 1 Tab PO DAILY 01/18/17 Reported Novolog Flexpen (Insulin Aspart) 100 Unit/1 Ml Insuln.pen 0-3 Unit SQ QIDACHS 10/25/19 Reported PATIENT SLIDING SCALE. 70-249= 0 UNITS. 250-400= 3UNITS. BEFORE MEALS AND AT BEDTIME GIVE 3 UNITS IF BLOOD SUGAR 250 OR ABOVE. Diclofenac Sodium 100 Gm Gel..gram. 1 Carlos TP DAILY 10/25/19 Reported D3-50 (Cholecalciferol (Vitamin D3)) 50,000 Unit Capsule 50,000 Unit PO DAILY 10/25/19 Reported Trazodone Hcl 50 Mg Tablet 0.5 Tab PO QHS 10/25/19 Reported Reglan (Metoclopramide Hcl) 5 Mg Tablet 5 Mg PO DAILY 10/25/19 Reported Protonix (Pantoprazole Sodium) 20 Mg Tablet.dr 1 Tab PO DAILY 10/25/19 Reported [place] 5-325 Tablet (Hydrocodone Bit/Acetaminophen) 1 Each Tablet 1 Tab PO Q4HRS 10/25/19 Reported Naproxen 500 Mg Tablet 1 Tab PO Q8HRS 10/25/19 Reported Lisinopril 2.5 Mg Tablet 1 Tab PO DAILY 10/25/19 Reported Lidocaine PATCH (Lidocaine) 1 Each Adh..patch 1 Each TP DAILY 10/25/19 Reported REMOVE AFTER 12 HOURS Lasix (Furosemide) 20 Mg Tablet 1 Tab PO DAILY 30 10/25/19 Reported Duoneb 0.5-3(2.5) Mg/3 Ml (Albuterol/Ipratropium) 3 Ml Ampul.neb 3 Ml NEB QID 10/25/19 Reported Imodium A-D (Loperamide HCl) 2 Mg Capsule 2 Mg PO DAILY 10/25/19 Reported Guaifenesin 400 Mg Tablet 400 Mg PO Q8HRS 10/25/19 Reported Coreg (Carvedilol) 3.125 Mg Tablet 3.125 Mg PO BID 10/25/19 Reported Clopidogrel (Clopidogrel Bisulfate) 75 Mg Tablet 75 Mg PO DAILY 10/25/19 Reported Citalopram Hbr (Citalopram Hydrobromide) 10 Mg Tablet 10 Mg PO DAILY 10/25/19 Reported Atorvastatin Calcium 10 Mg Tablet 10 Mg PO DAILY 10/25/19 Reported Proair Hfa Inhaler (Albuterol Sulfate) 8.5 Gm Hfa.aer.ad 1 Puff INH PRN Q6HRS 10/25/19 Reported Acetaminophen 500 Mg Tablet 1 Tab PO PRN Q6HRS 10/25/19 Reported Glimepiride 1 Mg Tablet 1 Mg PO DAILY 07/05/14 Reported Simvastatin 40 Mg Tablet 40 Mg PO HS 07/05/14 Reported Omeprazole 20 Mg Capsule.dr 20 Mg PO DAILY 07/05/14 Reported Januvia (Sitagliptin Phosphate) 100 Mg Tablet 100 Mg PO DAILY 07/05/14 Reported Comments Chest x-ray 624 improved ECHO <Conclusion> The left ventricular systolic function is severely impaired. The Ejection Fraction is 25%. Transmitral Doppler flow pattern is Grade II-pseudonormal filling dynamics. Mild to moderate mitral regurgitation. Moderate to severe tricuspid regurgitation with an estimated PAP of 83 mmHg. There is severe pulmonary hypertension. There is no evidence of significant pericardial effusion. Impression . IMPRESSION: 1. Acute respiratory failure, multifactorial in etiology. Extubated 11/04 /developed flash pulmonary edema post extubation from hypertensive urgency Rx with lasix/ bipap, --- improving patient set up with home noninvasive ventilation 2. New-onset seizure.-- no further seizures reported 3. Acute diastolic congestive heart failure, rule out myocardial infarction, less likely pneumonia. 4. Abnormal chest x-ray. 5. Electrolyte abnormality. 6. Hypertensive urgency. 7. Diabetes mellitus. 8. COVID-19 Neg 9. Dysphagia 10. cardiomyopathy EF 25% Plan . Hemoglobin drop, left heart and right heart catheterization placed on hold Transfuse as needed Continue PRN BiPAP oxygen supplementation Continue PPN -- speech following Follow cardiology recs -- Follow GI recs Cont. ABX PT/OT -- OOB as tolerated D/W CRYS CHUA MD Nov 13, 2019 08:36
[2019-11-13] MEDS ORDERED: DEXTROSE 50% 25 GM / 50ML DISP.SYRIN. IV PRN (09:00)
[2019-11-13] MEDS ORDERED: INSULIN LISPRO 300 UNITS/3 ML VIAL. SQ SCH ×2 (09:00)
[2019-11-13 09:44] LABS: CALCIUM 8.7 mg/dL (8.5-10.1); CREATININE 1.6 mg/dL (0.6-1.0); MAGNESIUM 1.9 mg/dL (1.8-2.4); POTASSIUM 3.3 mmol/L (3.5-5.1)
[2019-11-13 09:46] LABS: HEMATOCRIT 24.3 % (36.0-47.0); RED BLOOD COUNT 2.7 x10^6/uL (3.50-5.40); RED CELL DISTRIBUTION WIDTH 16.8 % (11.5-14.5); WHITE BLOOD COUNT 11.9 x10^3/uL (4.0-11.0)
[2019-11-13] MEDS: FUROSEMIDE 40 MG/4 ML VIAL. IVP SCH (09:49)
--- NOTE | 2019-11-13 09:59 | PDOC ---
Objective: Objective: D/w nurse - difficult to rouse this morning, awaiting approval to go to [facility]. Vital Signs: Vital Signs Date Time Temp Pulse Resp B/P (MAP) Pulse Ox O2 Delivery O2 Flow Rate FiO2 11/13/19 08:40 94 154/70 (98) 11/13/19 07:50 Nasal Cannula 2.0 11/13/19 07:00 98.0 22 99 98.0 Labs: Laboratory Tests Test 11/12/19 11:10 11/12/19 12:04 11/12/19 16:06 11/12/19 20:47 Sodium Level 132 mmol/L Potassium Level 3.8 mmol/L Chloride Level 98 mmol/L Carbon Dioxide Level 18 mmol/L Anion Gap 16 Blood Urea Nitrogen 46 mg/dL Creatinine 1.4 mg/dL Estimated GFR (Cockcroft-Gault) 36.2 Glucose Level 307 mg/dL Calcium Level 9.4 mg/dL Glucose (Fingerstick) 307 mg/dL 292 mg/dL 326 mg/dL Test 11/13/19 04:27 11/13/19 07:38 11/13/19 08:50 Random Vancomycin Level 22.1 mcg/mL Glucose (Fingerstick) 333 mg/dL White Blood Count 11.9 x10^3/uL Red Blood Count 2.70 x10^6/uL Hemoglobin 8.0 g/dL Hematocrit 24.3 % Mean Corpuscular Volume 90 fL Mean Corpuscular Hemoglobin 30 pg Mean Corpuscular Hemoglobin Concent 33 g/dL Red Cell Distribution Width 16.8 % Platelet Count 343 x10^3/uL Sodium Level 137 mmol/L Potassium Level 3.3 mmol/L Chloride Level 100 mmol/L Carbon Dioxide Level 23 mmol/L Anion Gap 14 Blood Urea Nitrogen 54 mg/dL Creatinine 1.6 mg/dL Estimated GFR (Cockcroft-Gault) 31.0 Glucose Level 335 mg/dL Calcium Level 8.7 mg/dL Magnesium Level 1.9 mg/dL C Diff negative. Imaging: CXR 11/11 IMPRESSION: Findings likely related to worsening pulmonary edema. Cardiac Cath 11/11 CORONARY ANGIOGRAPHY: LM is a large caliber vessel with normal angiographic appearance. LAD is a large caliber vessel with mild luminal irregularities. Ramus is a moderate caliber vessel with normal angiographic apeparance. LCx is a moderate caliber non-dominant vessel with normal angiographic appearance. OM1 is a moderate caliber vessel with normal angiographic appearance. RCA is a large caliber dominant vessel with mild luminal irregularities. RPDA and RPL are small caliber vessels with normal angiographic appearance. Conclusion 1. Acute on chronic systolic and diastolic HF 2. No significant coronary disease. Recommendations Aggressive Medical Therapy PE: GEN: sleeping LUNGS: clear HEART: RRR ABD: soft NEURO/PSYCH: did not awaken A/P: CHF Encephalopathy Normocytic anemia, B12 deficiency - stable Anorexia -- Gets pills crushed - change from Protonix to Prevacid. Justicifation of Admission Dx: Justifications for Admission: Justification of Admission Dx: Yes Respiratory Failure: Mechanical Ventilation Altered Mental Status: Altered Mental Status MARKOS PATINO Nov 13, 2019 09:59
[2019-11-13] MEDS ORDERED: ELECTROLYTE (ICU) PROTOCOL. MC PRN (11:00)
[2019-11-13] MEDS ORDERED: ELECTROLYTE (NON-ICU) PROTOCOL MC PRN (11:00)
--- NOTE | 2019-11-13 11:06 | PDOC ---
PROGRESS NOTES Assessment She has been having hallucinations, suspect pre-existing dementia, keep in mind the possibility of PRES and side effects of levetiracetam Seizure, no evidence of recurrence Possible posterior reversible encephalopathy syndrome, no evidence of this clinically now Having a cardiac catheterization today (11/07) Medical issues: anemia, aspiration pneumonia, resolved respiratory failure, severe hypertension, hypokalemia (resolved), elevated troponin, elevated BNP, heart failure, ejection fraction 25%, paroxysmal torsades, sinus bradycardia, anemia, peripheral artery disease, pulmonary hypertension Cardiac cath canceled, awaiting plans for rescheduling Plan Levetiracetam, consider taper off after 3-6 months Treatment of medical problems. I understand she is going to [facility] Denies pain Objective Vital Signs Date Time Temp Pulse Resp B/P (MAP) Pulse Ox O2 Delivery O2 Flow Rate FiO2 11/13/19 08:40 94 154/70 (98) 11/13/19 07:50 Nasal Cannula 2.0 11/13/19 07:00 98.0 22 99 98.0 Intake and Output 11/13/19 07:00 Intake Total 1648 ml Output Total 1500 ml Balance 148 ml Intake Oral 0 ml IV Total 1648 ml Output Urine Total 1500 ml # Bowel Movements 2 PHYSICAL EXAM Sleepy, alerts easily. Oriented to place and person, off on date. PERRL. EOMI. CN: no focal findings. Muscle tone: normal. Muscle strength: 5/5 DTR: 2+ Plantar reflex: flexor Gait: not examined in bed. Sensory exam: no abnormal findings. No cerebellar signs elicited. Review of Relevant I have reviewed the following items regina (where applicable) has been applied. Labs Laboratory Tests Test 11/11/19 11:47 11/11/19 13:00 11/11/19 16:45 11/11/19 20:32 Glucose (Fingerstick) 218 mg/dL (70-99) 197 mg/dL (70-99) 276 mg/dL (70-99) White Blood Count 14.0 x10^3/uL (4.0-11.0) Red Blood Count 2.81 x10^6/uL (3.50-5.40) Hemoglobin 8.6 g/dL (12.0-15.5) Hematocrit 24.9 % (36.0-47.0) Mean Corpuscular Volume 89 fL (79-100) Mean Corpuscular Hemoglobin 31 pg (25-35) Mean Corpuscular Hemoglobin Concent 35 g/dL (31-37) Red Cell Distribution Width 16.2 % (11.5-14.5) Platelet Count 389 x10^3/uL (140-400) Neutrophils (%) (Auto) 79 % (31-73) Lymphocytes (%) (Auto) 9 % (24-48) Monocytes (%) (Auto) 10 % (0-9) Eosinophils (%) (Auto) 0 % (0-3) Basophils (%) (Auto) 1 % (0-3) Neutrophils # (Auto) 11.1 x10^3/uL (1.8-7.7) Lymphocytes # (Auto) 1.3 x10^3/uL (1.0-4.8) Monocytes # (Auto) 1.4 x10^3/uL (0.0-1.1) Eosinophils # (Auto) 0.0 x10^3/uL (0.0-0.7) Basophils # (Auto) 0.2 x10^3/uL (0.0-0.2) Sodium Level 134 mmol/L (136-145) Potassium Level 3.6 mmol/L (3.5-5.1) Chloride Level 99 mmol/L (98-107) Carbon Dioxide Level 22 mmol/L (21-32) Anion Gap 13 (6-14) Blood Urea Nitrogen 35 mg/dL (7-20) Creatinine 1.3 mg/dL (0.6-1.0) Estimated GFR (Cockcroft-Gault) 39.4 Glucose Level 226 mg/dL (70-99) Calcium Level 8.7 mg/dL (8.5-10.1) Phosphorus Level 2.4 mg/dL (2.6-4.7) Magnesium Level 1.9 mg/dL (1.8-2.4) Test 11/12/19 04:33 11/12/19 07:34 11/12/19 11:10 11/12/19 12:04 White Blood Count 12.8 x10^3/uL (4.0-11.0) Red Blood Count 2.80 x10^6/uL (3.50-5.40) Hemoglobin 8.6 g/dL (12.0-15.5) Hematocrit 25.2 % (36.0-47.0) Mean Corpuscular Volume 90 fL (79-100) Mean Corpuscular Hemoglobin 31 pg (25-35) Mean Corpuscular Hemoglobin Concent 34 g/dL (31-37) Red Cell Distribution Width 16.4 % (11.5-14.5) Platelet Count 420 x10^3/uL (140-400) Neutrophils (%) (Auto) 90 % (31-73) Lymphocytes (%) (Auto) 7 % (24-48) Monocytes (%) (Auto) 3 % (0-9) Eosinophils (%) (Auto) 0 % (0-3) Basophils (%) (Auto) 0 % (0-3) Neutrophils # (Auto) 11.5 x10^3/uL (1.8-7.7) Lymphocytes # (Auto) 0.9 x10^3/uL (1.0-4.8) Monocytes # (Auto) 0.4 x10^3/uL (0.0-1.1) Eosinophils # (Auto) 0.0 x10^3/uL (0.0-0.7) Basophils # (Auto) 0.0 x10^3/uL (0.0-0.2) Segmented Neutrophils % 89 % (35-66) Band Neutrophils % 2 % (0-9) Lymphocytes % 7 % (24-48) Monocytes % 1 % (0-10) Metamyelocytes % 1 % (0-0) Nucleated Red Blood Cells 1 Platelet Estimate Adequate (ADEQUATE) Large Platelets Few Giant Platelets Occ Polychromasia Slight Anisocytosis Slight Sodium Level 136 mmol/L (136-145) 132 mmol/L (136-145) Potassium Level 4.2 mmol/L (3.5-5.1) 3.8 mmol/L (3.5-5.1) Chloride Level 99 mmol/L (98-107) 98 mmol/L (98-107) Carbon Dioxide Level 24 mmol/L (21-32) 18 mmol/L (21-32) Anion Gap 13 (6-14) 16 (6-14) Blood Urea Nitrogen 41 mg/dL (7-20) 46 mg/dL (7-20) Creatinine 1.5 mg/dL (0.6-1.0) 1.4 mg/dL (0.6-1.0) Estimated GFR (Cockcroft-Gault) 33.4 36.2 Glucose Level 275 mg/dL (70-99) 307 mg/dL (70-99) Calcium Level 8.8 mg/dL (8.5-10.1) 9.4 mg/dL (8.5-10.1) Magnesium Level 2.0 mg/dL (1.8-2.4) Vancomycin Level Trough 27.3 mcg/mL (10.0-20.0) Vancomycin Last Dose Date 11/11/19 Vancomycin Last Dose Time 1100 Glucose (Fingerstick) 270 mg/dL (70-99) 307 mg/dL (70-99) Test 11/12/19 16:06 11/12/19 20:47 11/13/19 04:27 11/13/19 07:38 Glucose (Fingerstick) 292 mg/dL (70-99) 326 mg/dL (70-99) 333 mg/dL (70-99) Random Vancomycin Level 22.1 mcg/mL Test 11/13/19 08:50 White Blood Count 11.9 x10^3/uL (4.0-11.0) Red Blood Count 2.70 x10^6/uL (3.50-5.40) Hemoglobin 8.0 g/dL (12.0-15.5) Hematocrit 24.3 % (36.0-47.0) Mean Corpuscular Volume 90 fL (79-100) Mean Corpuscular Hemoglobin 30 pg (25-35) Mean Corpuscular Hemoglobin Concent 33 g/dL (31-37) Red Cell Distribution Width 16.8 % (11.5-14.5) Platelet Count 343 x10^3/uL (140-400) Sodium Level 137 mmol/L (136-145) Potassium Level 3.3 mmol/L (3.5-5.1) Chloride Level 100 mmol/L (98-107) Carbon Dioxide Level 23 mmol/L (21-32) Anion Gap 14 (6-14) Blood Urea Nitrogen 54 mg/dL (7-20) Creatinine 1.6 mg/dL (0.6-1.0) Estimated GFR (Cockcroft-Gault) 31.0 Glucose Level 335 mg/dL (70-99) Calcium Level 8.7 mg/dL (8.5-10.1) Magnesium Level 1.9 mg/dL (1.8-2.4) Laboratory Tests Test 11/12/19 11:10 11/12/19 12:04 11/12/19 16:06 11/12/19 20:47 Sodium Level 132 mmol/L (136-145) Potassium Level 3.8 mmol/L (3.5-5.1) Chloride Level 98 mmol/L (98-107) Carbon Dioxide Level 18 mmol/L (21-32) Anion Gap 16 (6-14) Blood Urea Nitrogen 46 mg/dL (7-20) Creatinine 1.4 mg/dL (0.6-1.0) Estimated GFR (Cockcroft-Gault) 36.2 Glucose Level 307 mg/dL (70-99) Calcium Level 9.4 mg/dL (8.5-10.1) Glucose (Fingerstick) 307 mg/dL (70-99) 292 mg/dL (70-99) 326 mg/dL (70-99) Test 11/13/19 04:27 11/13/19 07:38 11/13/19 08:50 Random Vancomycin Level 22.1 mcg/mL Glucose (Fingerstick) 333 mg/dL (70-99) White Blood Count 11.9 x10^3/uL (4.0-11.0) Red Blood Count 2.70 x10^6/uL (3.50-5.40) Hemoglobin 8.0 g/dL (12.0-15.5) Hematocrit 24.3 % (36.0-47.0) Mean Corpuscular Volume 90 fL (79-100) Mean Corpuscular Hemoglobin 30 pg (25-35) Mean Corpuscular Hemoglobin Concent 33 g/dL (31-37) Red Cell Distribution Width 16.8 % (11.5-14.5) Platelet Count 343 x10^3/uL (140-400) Sodium Level 137 mmol/L (136-145) Potassium Level 3.3 mmol/L (3.5-5.1) Chloride Level 100 mmol/L (98-107) Carbon Dioxide Level 23 mmol/L (21-32) Anion Gap 14 (6-14) Blood Urea Nitrogen 54 mg/dL (7-20) Creatinine 1.6 mg/dL (0.6-1.0) Estimated GFR (Cockcroft-Gault) 31.0 Glucose Level 335 mg/dL (70-99) Calcium Level 8.7 mg/dL (8.5-10.1) Magnesium Level 1.9 mg/dL (1.8-2.4) Medications Current Medications Fentanyl Citrate 30 ml @ 0 mls/hr CONT PRN IV SEE PROTOCOL; Start 11/02/19 at 02:45; Status Cancel Propofol 100 ml @ 0 mls/hr CONT PRN IV SEE PROTOCOL; Start 11/02/19 at 02:45; Status Cancel Fentanyl Citrate (Fentanyl 2ml Vial) 25 mcg PRN Q1HR PRN IV SEE COMMENTS; Start 11/02/19 at 02:45; Status Cancel Fentanyl Citrate (Fentanyl 2ml Vial) 50 mcg PRN Q1HR PRN IV SEE COMMENTS; Start 11/02/19 at 02:45; Status Cancel Chlorhexidine Gluconate (Peridex) 15 ml BID MM ; Start 11/02/19 at 09:00; Status Cancel Morphine Sulfate (Morphine Sulfate) 2 mg PRN Q1HR PRN IV SEE COMMENTS.; Start 11/02/19 at 02:45; Status Cancel Morphine Sulfate (Morphine Sulfate) 4 mg PRN Q1HR PRN IV SEE COMMENTS.; Start 11/02/19 at 02:45; Status Cancel Midazolam HCl 100 ml @ 0 mls/hr CONT PRN IV SEE PROTOCOL; Start 11/02/19 at 02:45; Status Cancel Diphenhydramine HCl (Benadryl) 25 mg PRN Q15MIN PRN IVP EPS Symptoms; Start 11/02/19 at 02:45; Status Cancel Nicardipine HCl 50 mg/Sodium Chloride 250 ml @ 25 mls/hr CONT PRN IV SEE I/O RECORD Last administered on 11/02/19at 16:45; Start 11/02/19 at 03:15 Propofol 100 ml @ As Directed STK-MED ONCE IV ; Start 11/02/19 at 02:49; Stop 11/02/19 at 03:22; Status DC Propofol 100 ml @ 0 mls/hr CONT PRN IV SEE PROTOCOL Last administered on 11/03/19at 11:18; Start 11/02/19 at 03:30; Stop 11/03/19 at 13:54; Status DC Fentanyl Citrate (Fentanyl 2ml Vial) 25 mcg PRN Q1HR PRN IV SEE COMMENTS; Start 11/02/19 at 03:30; Stop 11/06/19 at 10:08; Status DC Fentanyl Citrate (Fentanyl 2ml Vial) 50 mcg PRN Q1HR PRN IV SEE COMMENTS; Start 11/02/19 at 03:30; Stop 11/06/19 at 10:08; Status DC Chlorhexidine Gluconate (Peridex) 15 ml BID MM Last administered on 11/05/19at 08:54; Start 11/02/19 at 09:00; Stop 11/06/19 at 10:08; Status DC Famotidine (Pepcid Vial) 20 mg DAILY IVP Last administered on 11/07/19 08:39; Start 11/02/19 at 09:00; Stop 11/08/19 at 09:56; Status DC Morphine Sulfate (Morphine Sulfate) 2 mg PRN Q1HR PRN IV SEE COMMENTS. Last administered on 11/04/19at 17:55; Start 11/02/19 at 03:30 Morphine Sulfate (Morphine Sulfate) 4 mg PRN Q1HR PRN IV SEE COMMENTS. Last administered on 11/07/19 05:18; Start 11/02/19 at 03:30 Potassium Bicarbonate (Potassium Effervescent Tablet) 40 meq 1X ONCE PEG Last administered on 11/02/19at 08:38; Start 11/02/19 at 07:30; Stop 11/02/19 at 07:31; Status DC Potassium Bicarbonate (Potassium Effervescent Tablet) 40 meq 1X ONCE PEG Last administered on 11/02/19 10:02; Start 11/02/19 at 08:00; Stop 11/02/19 at 08:01; Status DC Potassium Bicarbonate (Potassium Effervescent Tablet) 40 meq 1X ONCE PEG Last administered on 11/02/19at 10:41; Start 11/02/19 at 09:00; Stop 11/02/19 at 09:01; Status DC Magnesium Sulfate 50 ml @ 25 mls/hr 1X ONCE IV Last administered on 11/02/19at 08:37; Start 11/02/19 at 07:30; Stop 11/02/19 at 09:29; Status DC Famotidine (Pepcid Vial) 20 mg DAILY IVP ; Start 11/02/19 at 09:00; Status UNV Ceftriaxone Sodium (Rocephin) 1 gm Q24H IVP Last administered on 11/04/19 08:46; Start 11/02/19 at 09:00; Stop 11/04/19 at 15:04; Status DC Levetiracetam 1000 mg/Dextrose 110 ml @ 440 mls/hr Q12HR IV Last administered on 11/03/19at 09:13; Start 11/02/19 at 11:00; Stop 11/03/19 at 09:32; Status DC Acetaminophen (Tylenol) 650 mg PRN Q6HRS PRN PO PAIN Last administered on 11/11/19 20:36; Start 11/02/19 at 10:15 Atorvastatin Calcium (Lipitor) 10 mg QHS PO Last administered on 11/12/19 20:48; Start 11/02/19 at 21:00 Carvedilol (Coreg) 3.125 mg BIDWMEALS PO Last administered on 11/03/19 08:02; Start 11/02/19 at 11:00; Stop 11/07/19 at 12:02; Status DC Cetirizine HCl (ZyrTEC) 10 mg DAILY PO Last administered on 11/13/19at 07:40; Start 11/02/19 at 11:00 Citalopram Hydrobromide (CeleXA) 15 mg DAILY PO Last administered on 11/03/19 09:14; Start 11/02/19 at 11:00; Stop 11/03/19 at 13:50; Status DC Clopidogrel Bisulfate (Plavix) 75 mg DAILY PO Last administered on 11/05/19at 08:53; Start 11/02/19 at 11:00; Stop 11/05/19 at 15:30; Status DC Diclofenac Sodium (Voltaren) 1 carlos BID PRN TP BREAKTHROUGH PAIN; Start 11/02/19 at 10:15 Furosemide (Lasix) 20 mg QEVNG PO Last administered on 11/04/19at 17:54; Start 11/02/19 at 18:00; Stop 11/07/19 at 11:59; Status DC Furosemide (Lasix) 40 mg QAM PO Last administered on 11/05/19 08:54; Start at 11:00; Stop 11/07/19 at 11:59; Status DC Albuterol Sulfate (Ventolin Neb Soln) 2.5 mg PRN Q4HRS PRN NEB SHORTNESS OF BREATH Last administered on 11/07/19at 20:16; Start 11/02/19 at 10:30 Latanoprost (Xalatan) 1 drop QHS OU Last administered on 11/12/19at 20:47; Start 11/02/19 at 21:00 Lidocaine (Lidoderm) 1 patch PRN DAILY PRN TP PAIN; Start 11/02/19 at 09:00 Pantoprazole Sodium (Protonix) 20 mg DAILYAC PO ; Start 11/03/19 at 07:30; Status UNV Phenol (Chloraseptic) 1 spray PRN Q6HRS PRN MM SORE THROAT; Start 11/02/19 at 10:15 Piperacillin Sod/ Tazobactam Sod 3.375 gm/Sodium Chloride 50 ml @ 100 mls/hr Q6HRS IV Last administered on 11/13/19at 06:20; Start 11/02/19 at 11:00 Vancomycin HCl (Vanco Per Pharmacy) 1 each PRN DAILY PRN MC SEE COMMENTS Last administered on 11/13/19at 06:11; Start 11/02/19 at 10:30 Vancomycin HCl 1 gm/Sodium Chloride 250 ml @ 250 mls/hr Q24H IV Last administered on 11/03/19at 22:57; Start 11/02/19 at 22:00; Stop 11/04/19 at 07:00; Status DC Vancomycin HCl (Vancomycin Trough Level) 1 each 1X ONCE MC Last administered on 11/03/19at 21:30; Start 11/03/19 at 21:30; Stop 11/03/19 at 21:31; Status DC Levetiracetam 500 mg/Dextrose 105 ml @ 420 mls/hr Q12HR IV Last administered on 11/07/19at 08:38; Start 11/03/19 at 21:00; Stop 11/07/19 at 13:16; Status DC Magnesium Sulfate 50 ml @ 25 mls/hr 1X ONCE IV Last administered on 11/03/19at 13:33; Start 11/03/19 at 12:00; Stop 11/03/19 at 13:59; Status DC Sertraline HCl (Zoloft) 50 mg DAILY PO Last administered on 11/13/19at 07:40; Start 11/04/19 at 09:00 Losartan Potassium (Cozaar) 25 mg DAILY NG Last administered on 11/05/19at 08:54; Start 11/03/19 at 14:00; Stop 11/05/19 at 09:40; Status DC Dexmedetomidine HCl 400 mcg/ Sodium Chloride 100 ml @ 0 mls/hr CONT PRN IV PER PROTOCOL Last administered on 11/05/19at 02:05; Start 11/03/19 at 14:00; Stop 11/06/19 at 10:08; Status DC Sodium Chloride 500 ml @ 500 mls/hr 1X PRN PRN IV SEE COMMENTS; Start 11/03/19 at 14:00 Atropine Sulfate (ATROPINE 0.5mg SYRINGE) 0.5 mg PRN Q5MIN PRN IV SEE COMMENTS; Start 11/03/19 at 14:00; Stop 11/07/19 at 12:28; Status DC Vancomycin HCl 1 gm/Sodium Chloride 250 ml @ 250 mls/hr Q18H IV Last administered on 11/11/19at 10:51; Start 11/04/19 at 17:00; Stop 11/12/19 at 06:10; Status DC Vancomycin HCl (Vancomycin Trough Level) 1 each 1X ONCE MC Last administered on 11/06/19at 04:30; Start 11/06/19 at 04:30; Stop 11/06/19 at 04:31; Status DC Losartan Potassium (Cozaar) 50 mg DAILY NG Last administered on 11/08/19at 11:05; Start 11/05/19 at 09:45; Stop 11/08/19 at 14:57; Status DC Epinephrine (S2 Racepinephrine) 0.5 ml 1X ONCE NEB Last administered on 11/05/19at 12:00; Start 11/05/19 at 12:00; Stop 11/05/19 at 12:01; Status DC Methylprednisolone Sodium Succinate (SOLU-Medrol 125MG VIAL) 100 mg 1X ONCE IV Last administered on 11/05/19at 12:15; Start 11/05/19 at 12:00; Stop 11/05/19 at 12:01; Status DC Furosemide (Lasix) 20 mg 1X STAT IVP Last administered on 11/05/19at 12:14; Start 11/05/19 at 12:08; Stop 11/05/19 at 12:12; Status DC Furosemide (Lasix) 20 mg 1X ONCE IVP Last administered on 11/05/19at 14:26; Start 11/05/19 at 14:15; Stop 11/05/19 at 14:16; Status DC Clopidogrel Bisulfate (Plavix) 75 mg DAILY PO Last administered on 11/13/19at 07:39; Start 11/07/19 at 11:00 Metoprolol Tartrate (Lopressor Vial) 5 mg ONCE ONCE IVP Last administered on 11/05/19at 23:56; Start 11/06/19 at 00:00; Stop 11/06/19 at 00:01; Status DC Potassium Chloride (Klor-Con) 40 meq 1X PRN PRN PO PER PROTOCOL; Start 11/05/19 at 23:45 Potassium Bicarbonate (Potassium Effervescent Tablet) 40 meq 1X PRN PRN PO PER PROTOCOL; Start 11/05/19 at 23:45 Potassium Chloride/Water 100 ml @ 100 mls/hr PRN Q1HR PRN IV PER PROTOCOL Last administered on 11/06/19at 06:03; Start 11/05/19 at 23:45; Stop 11/06/19 at 06:11; Status DC Potassium Chloride/Water 100 ml @ 100 mls/hr PRN Q1HR PRN IV PER PROTOCOL; Start 11/05/19 at 23:45 Potassium Chloride (Klor-Con) 40 meq PRN Q2HRS PRN PO PER PROTOCOL; Start 11/05/19 at 23:45 Potassium Chloride/Water 100 ml @ 100 mls/hr PRN Q1HR PRN IV PER PROTOCOL; Start 11/05/19 at 23:45 Potassium Chloride/Water 100 ml @ 100 mls/hr PRN Q1HR PRN IV PER PROTOCOL; Start 11/05/19 at 23:45; Stop 11/06/19 at 07:44; Status DC Potassium Chloride (Klor-Con) 40 meq PRN Q2HRS PRN PO PER PROTOCOL; Start 11/05/19 at 23:45 Potassium Chloride/Water 100 ml @ 100 mls/hr PRN Q1HR PRN IV PER PROTOCOL; Start 11/05/19 at 23:45 Potassium Chloride/Water 100 ml @ 100 mls/hr PRN Q1HR PRN IV PER PROTOCOL; Start 11/06/19 at 00:01; Stop 11/06/19 at 07:44; Status DC Magnesium Sulfate 100 ml @ 50 mls/hr PRN DAILY PRN IV PER PROTOCOL; Start 11/06/19 at 00:00 Potassium Phos/ Sodium Phos (Phos-Nak) 1 pkt PRN BID PRN PO PER PROTOCOL; Start 11/06/19 at 09:00 Sodium Phosphate 40 mmol/Sodium Chloride 263.3333 ml @ 62.5 mls/hr 1X PRN PRN IV PER PROTOCOL; Start 11/05/19 at 23:45 Potassium Phosphate 13.6 mmol/Sodium Chloride 254.5333 ml @ 62.5 mls/hr PRN Q4HRS PRN IV PER PROTOCOL; Start 11/05/19 at 23:45 Magnesium Sulfate 50 ml @ 25 mls/hr 1X ONCE IV Last administered on 11/06/19at 00:31; Start 11/06/19 at 01:00; Stop 11/06/19 at 02:59; Status DC Metoprolol Tartrate (Lopressor Vial) 5 mg 1X ONCE IVP Last administered on 11/06/19at 01:52; Start 11/06/19 at 02:00; Stop 11/06/19 at 02:01; Status DC Miscellaneous (Lidoderm Patch Removal) 1 ea PRN QHS PRN MC SEE COMMENTS; Start 11/06/19 at 08:00 Metoprolol Tartrate (Lopressor Vial) 5 mg Q6HRS IVP Last administered on 11/07/19at 05:21; Start 11/06/19 at 12:00; Stop 11/07/19 at 11:59; Status DC Cyanocobalamin (Vitamin B-12) 1,000 mcg DAILY IM Last administered on 11/13/19at 07:41; Start 11/06/19 at 14:30 Furosemide (Lasix) 40 mg 1X ONCE IVP Last administered on 11/06/19at 17:35; Start 11/06/19 at 17:30; Stop 11/06/19 at 17:31; Status DC Amino Acids/ Glycerin/ Electrolytes 1,000 ml @ 80 mls/hr [id number] IV Last administered on 11/13/19at 07:35; Start 11/07/19 at 10:15 Metoprolol Succinate (Toprol Xl) 50 mg DAILY PO Last administered on 11/13/19at 07:40; Start 11/08/19 at 09:00 Furosemide (Lasix) 40 mg DAILY PO Last administered on 11/13/19at 07:41; Start 11/08/19 at 09:00; Stop 11/13/19 at 08:19; Status DC Lactobacillus Rhamnosus (Culturelle) 1 cap BID PO Last administered on 11/13/19at 07:40; Start 11/07/19 at 21:00 Levetiracetam (Keppra) 500 mg BID PO Last administered on 11/13/19at 07:39; Start 11/07/19 at 21:00 Furosemide (Lasix) 40 mg 1X ONCE IVP Last administered on 11/07/19at 21:55; Start 11/07/19 at 21:45; Stop 11/07/19 at 21:46; Status DC Cyanocobalamin (Vitamin B-12) 1,000 mcg 1X ONCE IM ; Start 11/08/19 at 08:30; Stop 11/08/19 at 08:31; Status DC Potassium Chloride (Klor-Con) 40 meq 1X ONCE PO ; Start 11/08/19 at 09:30; Stop 11/08/19 at 09:31; Status Cancel Furosemide (Lasix) 40 mg 1X ONCE IVP Last administered on 11/08/19at 17:56; Start 11/08/19 at 09:30; Stop 11/08/19 at 09:33; Status DC Pantoprazole Sodium (Protonix) 40 mg DAILYAC PO Last administered on 11/13/19at 07:41; Start 11/09/19 at 07:30; Stop 11/13/19 at 10:25; Status DC Potassium Chloride (Klor-Con) 40 meq 1X ONCE PO Last administered on 11/08/19at 11:31; Start 11/08/19 at 10:45; Stop 11/08/19 at 10:46; Status DC Potassium Chloride (Klor-Con) 40 meq 1X ONCE PO Last administered on 11/08/19at 17:56; Start 11/08/19 at 12:30; Stop 11/08/19 at 12:31; Status DC Potassium Chloride (Klor-Con) 40 meq 1X ONCE PO ; Start 11/08/19 at 11:15; Stop 11/08/19 at 11:16; Status DC Sacubitril/ Valsartan (Entresto 24 Mg-26 Mg) 1 tab BID PO Last administered on 11/13/19at 07:40; Start 11/10/19 at 09:00 Labetalol HCl (Normodyne Iv Push) 20 mg PRN Q2HR PRN IVP HYPERTENSION Last administered on 11/13/19at 03:18; Start 11/11/19 at 00:30 Vancomycin HCl (Vancomycin Trough Level) 1 each 1X ONCE MC Last administered on 11/12/19at 04:30; Start 11/12/19 at 04:30; Stop 11/12/19 at 04:31; Status DC Prednisone (Prednisone) 40 mg 1X ONCE PO Last administered on 11/11/19at 18:01; Start 11/11/19 at 17:30; Stop 11/11/19 at 17:33; Status DC Prednisone (Prednisone) 40 mg 1X ONCE PO Last administered on 11/11/19at 23:25; Start 11/11/19 at 23:00; Stop 11/11/19 at 23:01; Status DC Prednisone (Prednisone) 40 mg 1X ONCE PO Last administered on 11/12/19at 06:10; Start 11/12/19 at 07:00; Stop 11/12/19 at 07:01; Status DC Vancomycin HCl (Vancomycin Random Level) 1 each 1X ONCE MC ; Start 11/13/19 at 05:00; Stop 11/13/19 at 05:43; Status DC Methylprednisolone Sodium Succinate (SOLU-Medrol 125MG VIAL) 125 mg 1X ONCE IV Last administered on 11/12/19at 12:07; Start 11/12/19 at 10:45; Stop 11/12/19 at 10:46; Status DC Diphenhydramine HCl (Benadryl) 25 mg 1X ONCE IVP Last administered on 11/12/19at 12:39; Start 11/12/19 at 10:45; Stop 11/12/19 at 10:46; Status DC Famotidine (Pepcid Vial) 20 mg 1X ONCE IVP Last administered on 11/12/19at 12: 07; Start 11/12/19 at 10:45; Stop 11/12/19 at 10:46; Status DC Lidocaine HCl (Lidocaine 1% 20ml Vial) 20 ml STK-MED ONCE .ROUTE ; Start 11/12/19 at 12:42; Stop 11/12/19 at 12:43; Status DC Iodixanol (Visipaque 320) 100 ml STK-MED ONCE .ROUTE ; Start 11/12/19 at 12:43; Stop 11/12/19 at 12:43; Status DC Heparin Sodium/ Sodium Chloride 1,000 ml @ As Directed STK-MED ONCE .ROUTE ; Start 11/12/19 at 12:43; Stop 11/12/19 at 12:43; Status DC Fentanyl Citrate (Fentanyl 2ml Vial) 100 mcg STK-MED ONCE .ROUTE ; Start 11/12/19 at 12:44; Stop 11/12/19 at 12:44; Status DC Midazolam HCl (Versed) 2 mg STK-MED ONCE .ROUTE ; Start 11/12/19 at 12:44; Stop 11/12/19 at 12:45; Status DC Heparin Sodium (Porcine) (Heparin Sodium) 10,000 unit STK-MED ONCE .ROUTE ; Start 11/12/19 at 12:44; Stop 11/12/19 at 12:45; Status DC Verapamil HCl (Verapamil) 5 mg STK-MED ONCE .ROUTE ; Start 11/12/19 at 12:44; Stop 11/12/19 at 12:45; Status DC Nitroglycerin (Nitroglycerin) 200 mcg STK-MED ONCE .ROUTE ; Start 11/12/19 at 12:44; Stop 11/12/19 at 12:45; Status DC Nitroglycerin (Nitroglycerin) 200 mcg 1X ONCE IART Last administered on 11/12/19at 13:59; Start 11/12/19 at 13:45; Stop 11/12/19 at 13:49; Status DC Verapamil HCl (Verapamil) 2.5 mg 1X ONCE IART Last administered on 11/12/19at 13:59; Start 11/12/19 at 13:45; Stop 11/12/19 at 13:49; Status DC Heparin Sodium (Porcine) (Heparin Sodium) 2,500 unit 1X ONCE IART Last administered on 11/12/19at 13:58; Start 11/12/19 at 13:45; Stop 11/12/19 at 13:49; Status DC Heparin Sodium/ Sodium Chloride (HEPARIN for ARTERIAL LINE FLUSH) 1,000 unit 1X ONCE IART Last administered on 11/12/19at 13:57; Start 11/12/19 at 13:45; Stop 11/12/19 at 13:49; Status DC Heparin Sodium/ Sodium Chloride (HEPARIN for ARTERIAL LINE FLUSH) 1,000 unit 1X ONCE IART Last administered on 11/12/19at 13:57; Start 11/12/19 at 13:45; Stop 11/12/19 at 13:49; Status DC Fentanyl Citrate (Fentanyl 2ml Vial) 100 mcg 1X ONCE IV Last administered on 11/12/19at 14:00; Start 11/12/19 at 13:45; Stop 11/12/19 at 13:49; Status DC Iodixanol (Visipaque 320) 100 ml 1X ONCE IART Last administered on 11/12/19at 13:58; Start 11/12/19 at 13:45; Stop 11/12/19 at 13:50; Status DC Lidocaine HCl (Lidocaine 1% 20ml Vial) 20 ml 1X ONCE INJ Last administered on 11/12/19at 13:58; Start 11/12/19 at 13:45; Stop 11/12/19 at 13:49; Status DC Hydralazine HCl (Apresoline Inj) 10 mg PRN Q4HRS PRN IVP ELEVATED BP, SEE COMME NTS Last administered on 11/13/19at 08:03; Start 11/12/19 at 14:30 Furosemide (Lasix) 40 mg 1X ONCE IVP Last administered on 11/12/19at 16:22; Start 11/12/19 at 16:00; Stop 11/12/19 at 16:01; Status DC Vancomycin HCl (Vanco Per Pharmacy) 1 each 1X STAT MC ; Start 11/13/19 at 05:30; Stop 11/13/19 at 05:31; Status UNV Vancomycin HCl (Vancomycin Random Level) 1 each 1X ONCE MC ; Start 11/13/19 at 17:00; Stop 11/13/19 at 17:01 Furosemide (Lasix) 40 mg DAILY IVP Last administered on 11/13/19at 09:49; Start 11/13/19 at 09:00 Insulin Human Lispro (HumaLOG) 0-7 UNITS TIDWMEALS SQ ; Start 11/13/19 at 09:00; Stop 11/13/19 at 09:01; Status DC Dextrose (Dextrose 50%-Water Syringe) 12.5 gm PRN Q15MIN PRN IV SEE COMMENTS; Start 11/13/19 at 09:00 Insulin Human Lispro (HumaLOG) 0-7 UNITS Q6HRS SQ Last administered on 11/13/19at 09:56; Start 11/13/19 at 09:00 Lansoprazole (Prevacid) 30 mg DAILY PO ; Start 11/14/19 at 09:00 Info ([facility] Electrolyte Protocol) 1 ea CONT PRN PRN MC PER PROTOCOL; Start 11/13/19 at 11:00; Stop 11/13/19 at 10:49; Status DC Info (Non-[facility] Electrolyte Protocol) 1 ea CONT PRN PRN MC SEE COMMENTS; Start 11/13/19 at 11:00 Potassium Chloride/Water 100 ml @ 100 mls/hr Q1H IV ; Start 11/13/19 at 11:30; Stop 11/13/19 at 15:29 Active Scripts Active Reported Januvia (Sitagliptin Phosphate) 100 Mg Tablet 1 Tab PO DAILY Pantoprazole Sodium (Pantoprazole Sodium) 40 Mg Tablet.dr 20 Mg PO DAILYAC Glimepiride 1 Mg Tablet 1 Tab PO DAILY Hydrocodone-Apap 5-325 (Hydrocodone Bit/Acetaminophen) 1 Tab Tablet 1 Tab PO PRN Q6HRS PRN Lisinopril 10 Mg Tablet 1 Tab PO DAILY Acetaminophen 500 Mg Tablet 1 Tab PO BID Trazodone Hcl 50 Mg Tablet 0.5 Tab PO QHS Omeprazole 20 Mg Capsule. 1 Cap PO DAILY Novolog (Insulin Aspart) 100 Unit/1 Ml Cartridge 100 Unit SQ QIDACHS Naproxen 500 Mg Tablet 1 Tab PO PRN Q8HRS PRN Lidocaine PATCH (Lidocaine) 1 Each Adh..patch 1 Each TP DAILY REMOVE AFTER 12 HOURS Latanoprost 2.5 Ml Drops 1 Drop EACHEYE QHS Duoneb 0.5-3(2.5) Mg/3 Ml (Albuterol/Ipratropium) 3 Ml Ampul.neb 3 Ml NEB PRN Q4HRS PRN Imodium A-D (Loperamide HCl) 2 Mg Capsule 2 Mg PO PRN PRN Flonase Allergy Relief (Fluticasone Propionate) 9.9 Ml Henderson.susp 1 Sprays NS PRN Q12HRS PRN Coreg (Carvedilol) 3.125 Mg Tablet 3.125 Mg PO BIDWMEALS Chloraseptic (Phenol) 20 Ml Henderson 1 Henderson MM PRN Q6HRS PRN Calcium Citrate 250 Mg Tablet 500 Mg PO DAILY Tylenol (Acetaminophen) 325 Mg Tablet 2 Tab PO PRN Q6HRS PRN Atorvastatin Calcium 10 Mg Tablet 1 Tab PO QHS Proair Respiclick (Albuterol Sulfate) 90 Mcg Aer.pow.ba 1 Puff IH PRN Q6HRS PRN Alendronate Sodium 70 Mg Tablet 1 Tab PO WEEKLY Citalopram Hbr (Citalopram Hydrobromide) 10 Mg Tablet 1.5 Tab PO DAILY Cetirizine Hcl 10 Mg Tablet 1 Tab PO DAILY Guaifenesin 600 Mg Tablet.er 600 Mg PO PRN Q8HRS PRN Clopidogrel (Clopidogrel Bisulfate) 75 Mg Tablet 1 Tab PO DAILY Novolog Flexpen (Insulin Aspart) 100 Unit/1 Ml Insuln.pen 0-3 Unit SQ QIDACHS PATIENT SLIDING SCALE. 70-249= 0 UNITS. 250-400= 3UNITS. BEFORE MEALS AND AT BEDTIME GIVE 3 UNITS IF BLOOD SUGAR 250 OR ABOVE. Diclofenac Sodium 100 Gm Gel..gram. 1 Carlos TP DAILY D3-50 (Cholecalciferol (Vitamin D3)) 50,000 Unit Capsule 50,000 Unit PO DAILY Trazodone Hcl 50 Mg Tablet 0.5 Tab PO QHS Reglan (Metoclopramide Hcl) 5 Mg Tablet 5 Mg PO DAILY Protonix (Pantoprazole Sodium) 20 Mg Tablet.dr 1 Tab PO DAILY Milton 5-325 Tablet (Hydrocodone Bit/Acetaminophen) 1 Each Tablet 1 Tab PO Q4HRS Naproxen 500 Mg Tablet 1 Tab PO Q8HRS Lisinopril 2.5 Mg Tablet 1 Tab PO DAILY Lidocaine PATCH (Lidocaine) 1 Each Adh..patch 1 Each TP DAILY REMOVE AFTER 12 HOURS Lasix (Furosemide) 20 Mg Tablet 1 Tab PO DAILY 30 Days Duoneb 0.5-3(2.5) Mg/3 Ml (Albuterol/Ipratropium) 3 Ml Ampul.neb 3 Ml NEB QID Imodium A-D (Loperamide HCl) 2 Mg Capsule 2 Mg PO DAILY Guaifenesin 400 Mg Tablet 400 Mg PO Q8HRS Coreg (Carvedilol) 3.125 Mg Tablet 3.125 Mg PO BID Clopidogrel (Clopidogrel Bisulfate) 75 Mg Tablet 75 Mg PO DAILY Citalopram Hbr (Citalopram Hydrobromide) 10 Mg Tablet 10 Mg PO DAILY Atorvastatin Calcium 10 Mg Tablet 10 Mg PO DAILY Proair Hfa Inhaler (Albuterol Sulfate) 8.5 Gm Hfa.aer.ad 1 Puff INH PRN Q6HRS Acetaminophen 500 Mg Tablet 1 Tab PO PRN Q6HRS Glimepiride 1 Mg Tablet 1 Mg PO DAILY Simvastatin 40 Mg Tablet 40 Mg PO HS Omeprazole 20 Mg Capsule.dr 20 Mg PO DAILY Januvia (Sitagliptin Phosphate) 100 Mg Tablet 100 Mg PO DAILY Vitals/I & O Vital Sign - Last 24 Hours 11/12/19 11/12/19 11/12/19 11/12/19 12:07 13:59 14:00 14:05 Pulse 99 94 86 Resp 18 B/P (MAP) 186/112 197/108 198/99 (132) Pulse Ox 98 O2 Delivery Nasal Cannula O2 Flow Rate 7.0 11/12/19 11/12/19 11/12/19 11/12/19 14:05 14:09 14:20 14:20 Pulse 86 94 81 Resp 22 B/P (MAP) 187/96 (126) Pulse Ox 98 96 O2 Delivery Nasal Cannula Nasal Cannula Nasal Cannula O2 Flow Rate 7.0 7.0 4.0 11/12/19 11/12/19 11/12/19 11/12/19 14:35 14:35 14:35 14:36 Temp 97.7 97.7 Pulse 84 81 94 Resp 24 B/P (MAP) 187/99 (128) 187/96 (126) 187/86 Pulse Ox 98 O2 Delivery Nasal Cannula Nasal Cannula O2 Flow Rate 5.0 4.0 11/12/19 11/12/19 11/12/19 11/12/19 14:50 14:50 15:05 15:20 Pulse 87 94 B/P (MAP) 168/82 (110) 158/89 (112) O2 Delivery Nasal Cannula Nasal Cannula O2 Flow Rate 4.0 4.0 11/12/19 11/12/19 11/12/19 11/12/19 15:35 16:05 16:20 17:05 Pulse 98 B/P (MAP) 173/82 (112) O2 Delivery Nasal Cannula Nasal Cannula Nasal Cannula O2 Flow Rate 3.0 3.0 3.0 11/12/19 11/12/19 11/12/19 11/12/19 17:20 18:05 18:15 18:20 Pulse 98 88 B/P (MAP) 188/89 (122) 173/82 Pulse Ox 98 O2 Delivery Nasal Cannula Nasal Cannula O2 Flow Rate 3.0 3.0 11/12/19 11/12/19 11/12/19 11/12/19 19:25 20:00 20:48 23:05 Temp 98.5 98.2 98.5 98.2 Pulse 100 100 96 Resp B/P (MAP) 152/78 (102) 152/78 173/94 (120) Pulse Ox 97 97 O2 Delivery Nasal Cannula Nasal Cannula Nasal Cannula O2 Flow Rate 3.0 3.0 3.0 11/13/19 11/13/19 11/13/19 11/13/19 03:05 03:18 07:00 07:40 Temp 98.3 98.0 98.3 98.0 Pulse 108 98 73 90 Resp B/P (MAP) 184/93 (123) 184/93 140/62 (88) 175/89 Pulse Ox 97 99 O2 Delivery Nasal Cannula Nasal Cannula O2 Flow Rate 3.0 3.0 11/13/19 11/13/19 11/13/19 11/13/19 07:40 07:50 08:03 08:40 Pulse 88 90 94 B/P (MAP) 175/89 175/89 154/70 (98) O2 Delivery Nasal Cannula O2 Flow Rate 2.0 Intake and Output 11/12/19 11/12/19 11/13/19 15:00 23:00 07:00 Intake Total 0 ml 1648 ml Output Total 450 ml 1050 ml Balance -450 ml 598 ml Justicifation of Admission Dx: Justifications for Admission: Justification of Admission Dx: Yes Respiratory Failure: Mechanical Ventilation Altered Mental Status: Altered Mental Status FERNANDO TOSCANO MD Nov 13, 2019 11:06
--- NOTE | 2019-11-13 11:16 | PN ---
DATE: 11/13/2019 SUBJECTIVE: The patient is resting, slightly propped up in bed, sleeping comfortably, in no apparent distress. On questioning her, denied any complaint. Nursing staff did not voice any concern. She continued to have poor appetite and poor oral intake, has had her cardiac catheterization, which basically showed that the patient has [id number] systolic and diastolic heart failure. No significant coronary artery disease. PHYSICAL EXAMINATION: GENERAL: When I saw her this morning, she was pale, but no jaundice, cyanosis or thyromegaly. No jugular venous distention. No lower limb edema. VITAL SIGNS: Her heart rate was 94, blood pressure was 154/70, temperature was 98, respiratory rate was 22 and oxygen saturation was 99% on 2 liters of oxygen. HEAD, EYES, EARS, NOSE AND THROAT: Showed normocephalic, atraumatic. NECK: Supple. CARDIAC: Normal first and second heart sounds. No gallop, rub or murmur. CHEST: Showed central trachea, equal bilateral expansion, air entry, vesicular sounds with bilateral crepitations. I could not appreciate any rhonchi. ABDOMEN: Distended, soft, nontender. NEUROLOGIC: She is demented, confused, otherwise all her cranial nerves are intact. She moves extremities without difficulty, although she is mostly bedbound. Her intake over the last 24 hours was incompletely recorded, output was 910. LABORATORY DATA: Her lab work this morning showed a serum sodium of 137, potassium 3.3, chloride 100, bicarbonate 23, anion gap of 14, BUN 54, creatinine 1.6, estimated GFR was 31 mL per minute. Her glucose was 135, calcium was 8.7, magnesium was 1.9. Her white cell count is 11,900; hemoglobin 8; hematocrit 24; MCV 90 and platelet count 343,000. ASSESSMENT: 1. Acute respiratory failure secondary to aspiration pneumonia for which she was intubated and mechanically ventilated; however, she was successfully extubated on 11/05/2019. 2. Flash pulmonary edema due to accelerated hypertension. Post-extubation, has improved. 3. Accelerated hypertension for which she was on Cardene drip. She is now on metoprolol succinate 50 mg once a day. 4. New onset tonic-clonic seizure for which she is currently on Keppra 500 mg twice a day. No further evidence of seizures documented. 5. Hypokalemia, resolved. Her most recent serum potassium was up to 4.9 mEq per liter. 6. Mildly elevated troponin, felt to be likely demand ischemia. 7. Zdhjq-[id number]-glzhefz systolic and diastolic congestive heart failure. Her left ventricular systolic function is severely impaired, ejection fraction of only 25%. However, cardiac catheterization showed no significant coronary artery disease. 8. Anemia without any obvious site of bleeding. 9. Her MRI showed signal abnormalities within the posterior temporoparietal and occipital subcortical white matter that may represent posterior reversible encephalopathy syndrome. 10. The patient has severe protein-calorie malnutrition with serum albumin is only 2.2. 11. Dysphagia and poor oral intake for which she is on PPN. PLAN: To continue with Keppra for seizure disorder. Continue with metoprolol for blood pressure control. Continue with furosemide for acute on chronic systolic congestive heart failure. Continue with Zosyn and vancomycin for aspiration pneumonia. Await approval for the patient to be transferred to [facility]. FINESSE GEORGES MD DR: IRISH/shubham JOB#: [id number] / [id number]
--- NOTE | 2019-11-13 11:51 | PDOC ---
ANNITA FORTUNE ARMAMENT MECHANIC 11/13/19 1151: CARDIO Progress Notes Date and Time Date of Service 11/13/2019 Time of Evaluation 1140 Subjective Subjective: No Chest Pain, No shortness of breath, No Palpitations Vitals Vitals Vital Signs Date Time Temp Pulse Resp B/P (MAP) Pulse Ox O2 Delivery O2 Flow Rate FiO2 11/13/19 11:00 98.0 94 22 154/70 (98) 95 Nasal Cannula 3.0 98.0 Weight Weight [ ] Input and Output Intake and Output Intake and Output 11/13/19 07:00 Intake Total 1648 ml Output Total 1500 ml Balance 148 ml Intake Oral 0 ml IV Total 1648 ml Output Urine Total 1500 ml # Bowel Movements 2 Laboratory Labs Laboratory Tests Test 11/12/19 12:04 11/12/19 16:06 11/12/19 20:47 11/13/19 04:27 Glucose (Fingerstick) 307 mg/dL (70-99) 292 mg/dL (70-99) 326 mg/dL (70-99) Random Vancomycin Level 22.1 mcg/mL Test 11/13/19 07:38 11/13/19 08:50 11/13/19 11:34 Glucose (Fingerstick) 333 mg/dL (70-99) 353 mg/dL (70-99) White Blood Count 11.9 x10^3/uL (4.0-11.0) Red Blood Count 2.70 x10^6/uL (3.50-5.40) Hemoglobin 8.0 g/dL (12.0-15.5) Hematocrit 24.3 % (36.0-47.0) Mean Corpuscular Volume 90 fL (79-100) Mean Corpuscular Hemoglobin 30 pg (25-35) Mean Corpuscular Hemoglobin Concent 33 g/dL (31-37) Red Cell Distribution Width 16.8 % (11.5-14.5) Platelet Count 343 x10^3/uL (140-400) Sodium Level 137 mmol/L (136-145) Potassium Level 3.3 mmol/L (3.5-5.1) Chloride Level 100 mmol/L (98-107) Carbon Dioxide Level 23 mmol/L (21-32) Anion Gap 14 (6-14) Blood Urea Nitrogen 54 mg/dL (7-20) Creatinine 1.6 mg/dL (0.6-1.0) Estimated GFR (Cockcroft-Gault) 31.0 Glucose Level 335 mg/dL (70-99) Calcium Level 8.7 mg/dL (8.5-10.1) Magnesium Level 1.9 mg/dL (1.8-2.4) Physical Exam HEENT: Neck Supple W Full Motion Chest: Symmetric LUNGS: Other (basilar crackles) Heart: RRR (SR), murmurs (4/6 systolic murmur to LLS border) Abdomen: Soft N/T Extremities: No Edema, No Calf Tenderness Neurology: follow commands, other (drowsy) Assessment Assessment 1. Accelerated hypertension: controlled 2. New onset seizure disorder with encephalopathy: on keppra per neurology. pt remains pleasantly confused 3. Acute respiratory failure, multifactorial: s/p intubation, treat per pulmonary team. COVID test negative 4. Acute on chronic diastolic/systolic heart failure: improving 5. Mild troponin elevation: type 2 6. Paroxysmal Torsades: none further after BB initiation 7. Asymptomatic SB: lowest 50s. none further, no pauses 8. Normocytic anemia with hx of MGUS: post transfusion. Hgb better 9. Protein malnutrition 10. Hx of LE PAD: hence on plavix with past stenting in 2017 11. NICM: EF at 25% 12. Moderate to severe TR 13. Severe Pulmonary HTN: PAP 83 mmhg New 14. Iodine allergy: unknown reaction Recommendations 1. DC toprol as pt has difficulty with swallowing will place on metoprolol IR at higher dose. Continue lasix therapy. Continue plavix. Possible select 2. Continue entresto 3. FR 2L caution with IVF 4. Continue HF regimen optimization. AICD consideration in 3 months.Lifevest an option pending pt mentation. Justicifation of Admission Dx: Justifications for Admission: Justification of Admission Dx: Yes Respiratory Failure: Mechanical Ventilation Altered Mental Status: Altered Mental Status ASHELY SANCHES MD 11/13/19 1800: CARDIO Progress Notes Assessment Assessment Patient seen and examined. Agree with ROAD PATCHER's assessment and plan. No further torsades noted on telemetry Ac on chr combined sys/diast HF better compensated Cont treatment for seizures/encephalopahy per neurology team We will revisit ICD option as outpatient ANNITA FORTUNE ARMAMENT MECHANIC Nov 13, 2019 11:51 ASHELY SANCHES MD Nov 13, 2019 18:00
[2019-11-13] MEDS: POTASSIUM CHLORIDE 10MEQ 100 ML IV SCH ×4 (11:53→14:59)
[2019-11-13] MEDS: INSULIN LISPRO 300 UNITS/3 ML VIAL. SQ SCH ×2 (12:03→18:40)
--- NOTE | 2019-11-13 19:05 | NUR ---
Pharmacy Vancomycin Dosing Note S:Consulted to monitor and dose vancomycin started 11/01/19. O:GUILLERMO JIMENEZ is a 79 year old F with Pneumonia . Height: 5 feet, 4 inches Weight: 67.8 kg [place] Body Weight: 54.70 Adjusted Body Weight: 59.38 Dosing Weight: Actual Other Antibiotics: Zosyn 3.375GM IV q6hrs LABS: Last BUN: 46 Last Creatinine: 1.4 Creatinine Clearance: 30 mL/min Last WBC: 12.8 Last Procalcitonin: - Tmax (past 24 hours): 98.0 Microbiology: 11/06 CINDY 5DAYS I/O: 130/910 Drug Levels: Last Random level: 18.3 on 11/13/19 at 0427 Last dose given 11/11/19 at 1051 Vancomycin Dosing: Loading Dose: x1 Dosing Weight: Actual Target Trough: 15-20 A: Based on: RANDOM LEVEL 18.3 (48HRS AFTER LAST DOSE) P: 1. Change Vancomycin 1000 mg IV q48h 2. Follow up Random level NEEDED 3. Pharmacy will continue to monitor, follow and adjust therapy as needed. ODESSA RILEY [facility], 11/13/19 [id number]
--- NOTE | 2019-11-13 19:25 | NUR ---
Pt asleep in bed assessment completed vss pt lethargic will resume care and continue to monitor pt. Call light in pt reach.
[2019-11-13] MEDS: VANCOMYCIN 1 GM in IV NORMAL SALINE 250ML 250 ML IV SCH (19:28)
[2019-11-13] MEDS: ATORVASTATIN CALCIUM 10 MG TABLET. PO SCH (21:42)
[2019-11-13] MEDS: METOPROLOL TART IMMED RELEASE 50 MG TABLET. PO SCH (21:46)
[2019-11-13] MEDS: LATANOPROST 0.005% OPHTH SOLUTION 2.5ML BOTTLE. OU SCH (21:55)
[2019-11-14] MEDS: PIPERACILLIN/TAZOBACTAM 3.375 GM in IV NORMAL SALINE 50ML 50 ML IV SCH ×5 (00:10→23:50)
[2019-11-14] MEDS: INSULIN LISPRO 300 UNITS/3 ML VIAL. SQ SCH ×5 (00:12→23:51)
[2019-11-14 03:00] VITALS: BP 162/87
[2019-11-14 07:00] VITALS: BP 179/80
[2019-11-14 07:07] LABS: HEMATOCRIT 25.8 % (36.0-47.0); HEMOGLOBIN 8.7 g/dL (12.0-15.5); RED BLOOD COUNT 2.84 x10^6/uL (3.50-5.40); RED CELL DISTRIBUTION WIDTH 17.3 % (11.5-14.5); WHITE BLOOD COUNT 15.7 x10^3/uL (4.0-11.0)
[2019-11-14 07:23] LABS: CALCIUM 8.6 mg/dL (8.5-10.1); CREATININE 1.7 mg/dL (0.6-1.0); GFR 28.9; POTASSIUM 3.6 mmol/L (3.5-5.1)
[2019-11-14] MEDS: LACTOBACILLUS RHAMNOSUS GG 1 CAPSULE. PO SCH ×2 (08:46→21:06)
[2019-11-14] MEDS: levETIRAcetam 500 MG TABLET PO SCH ×2 (08:47→21:06)
[2019-11-14] MEDS: SERTRALINE 50 MG TABLET. PO SCH (08:47)
[2019-11-14] MEDS: METOPROLOL TART IMMED RELEASE 50 MG TABLET. PO SCH ×2 (08:47→21:07)
[2019-11-14] MEDS: SACUBITRIL/VALSARTAN 24/26MG TABLET. PO SCH ×2 (08:47→21:06)
[2019-11-14] MEDS: CETIRIZINE HCL 10 MG TABLET. PO SCH (08:47)
[2019-11-14] MEDS: FUROSEMIDE 40 MG/4 ML VIAL. IVP SCH (08:48)
[2019-11-14] MEDS: CLOPIDOGREL BISULFATE 75 MG TABLET PO SCH (08:48)
[2019-11-14] MEDS: LANSOPRAZOLE 30 MG TAB.RAP.DR PO SCH (08:48)
[2019-11-14] MEDS: CYANOCOBALAMIN (VITAMIN B-12) 1,000 MCG/ML VIAL IM SCH (08:50)
--- NOTE | 2019-11-14 09:33 | PDOC ---
PULMONARY PROGRESS NOTES Subjective Extubated 11/04 Patient does not feel well weak and short of air Vitals Vital Signs Date Time Temp Pulse Resp B/P (MAP) Pulse Ox O2 Delivery O2 Flow Rate FiO2 11/14/19 08:47 87 179/80 11/14/19 07:00 97.5 18 97 Nasal Cannula 3.0 97.5 ROS: No Nausea, No Chest Pain, No Abdominal Pain, No Increase Cough General: Alert Lungs: Clear Cardiovascular: S1 Abdomen: Soft Neuro Exam: Alert Extremities: No Edema Skin: Warm Labs Laboratory Tests Test 11/12/19 11:10 11/12/19 12:04 11/12/19 16:06 11/12/19 20:47 Sodium Level 132 mmol/L (136-145) Potassium Level 3.8 mmol/L (3.5-5.1) Chloride Level 98 mmol/L (98-107) Carbon Dioxide Level 18 mmol/L (21-32) Anion Gap 16 (6-14) Blood Urea Nitrogen 46 mg/dL (-20) Creatinine 1.4 mg/dL (0.6-1.0) Estimated GFR (Cockcroft-Gault) 36.2 Glucose Level 307 mg/dL (70-99) Calcium Level 9.4 mg/dL (8.5-10.1) Glucose (Fingerstick) 307 mg/dL (70-99) 292 mg/dL (70-99) 326 mg/dL (70-99) Test 11/13/19 04:27 11/13/19 07:38 11/13/19 08:50 11/13/19 11:34 Random Vancomycin Level 22.1 mcg/mL Glucose (Fingerstick) 333 mg/dL (70-99) 353 mg/dL (70-99) White Blood Count 11.9 x10^3/uL (4.0-11.0) Red Blood Count 2.70 x10^6/uL (3.50-5.40) Hemoglobin 8.0 g/dL (12.0-15.5) Hematocrit 24.3 % (36.0-47.0) Mean Corpuscular Volume 90 fL (79-100) Mean Corpuscular Hemoglobin 30 pg (25-35) Mean Corpuscular Hemoglobin Concent 33 g/dL (31-37) Red Cell Distribution Width 16.8 % (11.5-14.5) Platelet Count 343 x10^3/uL (140-400) Sodium Level 137 mmol/L (136-145) Potassium Level 3.3 mmol/L (3.5-5.1) Chloride Level 100 mmol/L (98-107) Carbon Dioxide Level 23 mmol/L (21-32) Anion Gap 14 (6-14) Blood Urea Nitrogen 54 mg/dL (7-20) Creatinine 1.6 mg/dL (0.6-1.0) Estimated GFR (Cockcroft-Gault) 31.0 Glucose Level 335 mg/dL (70-99) Calcium Level 8.7 mg/dL (8.5-10.1) Magnesium Level 1.9 mg/dL (1.8-2.4) Test 11/13/19 16:40 11/13/19 17:38 11/14/19 00:11 11/14/19 05:49 Random Vancomycin Level 18.3 mcg/mL Glucose (Fingerstick) 206 mg/dL (70-99) 165 mg/dL (70-99) 173 mg/dL (70-99) Test 11/14/19 06:45 White Blood Count 15.7 x10^3/uL (4.0-11.0) Red Blood Count 2.84 x10^6/uL (3.50-5.40) Hemoglobin 8.7 g/dL (12.0-15.5) Hematocrit 25.8 % (36.0-47.0) Mean Corpuscular Volume 91 fL (79-100) Mean Corpuscular Hemoglobin 31 pg (25-35) Mean Corpuscular Hemoglobin Concent 34 g/dL (31-37) Red Cell Distribution Width 17.3 % (11.5-14.5) Platelet Count 349 x10^3/uL (140-400) Sodium Level 136 mmol/L (136-145) Potassium Level 3.6 mmol/L (3.5-5.1) Chloride Level 100 mmol/L (98-107) Carbon Dioxide Level 25 mmol/L (21-32) Anion Gap 11 (6-14) Blood Urea Nitrogen 58 mg/dL (7-20) Creatinine 1.7 mg/dL (0.6-1.0) Estimated GFR (Cockcroft-Gault) 28.9 Glucose Level 178 mg/dL (70-99) Calcium Level 8.6 mg/dL (8.5-10.1) Laboratory Tests Test 11/13/19 11:34 11/13/19 16:40 11/13/19 17:38 11/14/19 00:11 Glucose (Fingerstick) 353 mg/dL (70-99) 206 mg/dL (70-99) 165 mg/dL (70-99) Random Vancomycin Level 18.3 mcg/mL Test 11/14/19 05:49 11/14/19 06:45 Glucose (Fingerstick) 173 mg/dL (70-99) White Blood Count 15.7 x10^3/uL (4.0-11.0) Red Blood Count 2.84 x10^6/uL (3.50-5.40) Hemoglobin 8.7 g/dL (12.0-15.5) Hematocrit 25.8 % (36.0-47.0) Mean Corpuscular Volume 91 fL (79-100) Mean Corpuscular Hemoglobin 31 pg (25-35) Mean Corpuscular Hemoglobin Concent 34 g/dL (31-37) Red Cell Distribution Width 17.3 % (11.5-14.5) Platelet Count 349 x10^3/uL (140-400) Sodium Level 136 mmol/L (136-145) Potassium Level 3.6 mmol/L (3.5-5.1) Chloride Level 100 mmol/L (98-107) Carbon Dioxide Level 25 mmol/L (21-32) Anion Gap 11 (6-14) Blood Urea Nitrogen 58 mg/dL (-20) Creatinine 1.7 mg/dL (0.6-1.0) Estimated GFR (Cockcroft-Gault) 28.9 Glucose Level 178 mg/dL (70-99) Calcium Level 8.6 mg/dL (8.5-10.1) Medications Active Scripts Medications Dose Route/Sig Max Daily Dose Days Date Category Dose Instructions Januvia (Sitagliptin Phosphate) 100 Mg Tablet 1 Tab PO DAILY 11/02/19 Reported Pantoprazole Sodium (Pantoprazole Sodium) 40 Mg Tablet.dr 20 Mg PO DAILYAC 11/02/19 Reported Glimepiride 1 Mg Tablet 1 Tab PO DAILY 11/02/19 Reported Hydrocodone-Apap 5-325 (Hydrocodone Bit/Acetaminophen) 1 Tab Tablet 1 Tab PO PRN Q6HRS PRN 11/02/19 Reported Lisinopril 10 Mg Tablet 1 Tab PO DAILY 11/02/19 Reported Acetaminophen 500 Mg Tablet 1 Tab PO BID 11/30/18 Reported Trazodone Hcl 50 Mg Tablet 0.5 Tab PO QHS 11/30/18 Reported Omeprazole 20 Mg Capsule.dr 1 Cap PO DAILY 11/30/18 Reported Novolog (Insulin Aspart) 100 Unit/1 Ml Cartridge 100 Unit SQ QIDACHS 11/30/18 Reported Naproxen 500 Mg Tablet 1 Tab PO PRN Q8HRS PRN 11/30/18 Reported Lidocaine PATCH (Lidocaine) 1 Each Adh..patch 1 Each TP DAILY 11/30/18 Reported REMOVE AFTER 12 HOURS Latanoprost 2.5 Ml Drops 1 Drop EACHEYE QHS 11/30/18 Reported Duoneb 0.5-3(2.5) Mg/3 Ml (Albuterol/Ipratropium) 3 Ml Ampul.neb 3 Ml NEB PRN Q4HRS PRN 11/30/18 Reported Imodium A-D (Loperamide HCl) 2 Mg Capsule 2 Mg PO PRN PRN 11/30/18 Reported Flonase Allergy Relief (Fluticasone Propionate) 9.9 Ml Webster.susp 1 Sprays NS PRN Q12HRS PRN 11/30/18 Reported Coreg (Carvedilol) 3.125 Mg Tablet 3.125 Mg PO BIDWMEALS 11/30/18 Reported Chloraseptic (Phenol) 20 Ml Webster 1 Webster MM PRN Q6HRS PRN 11/30/18 Reported Calcium Citrate 250 Mg Tablet 500 Mg PO DAILY 11/30/18 Reported Tylenol (Acetaminophen) 325 Mg Tablet 2 Tab PO PRN Q6HRS PRN 11/30/18 Reported Atorvastatin Calcium 10 Mg Tablet 1 Tab PO QHS 11/30/18 Reported Proair Respiclick (Albuterol Sulfate) 90 Mcg Aer.pow.ba 1 Puff IH PRN Q6HRS PRN 01/18/17 Reported Alendronate Sodium 70 Mg Tablet 1 Tab PO WEEKLY 01/18/17 Reported Citalopram Hbr (Citalopram Hydrobromide) 10 Mg Tablet 1.5 Tab PO DAILY 01/18/17 Reported Cetirizine Hcl 10 Mg Tablet 1 Tab PO DAILY 01/18/17 Reported Guaifenesin 600 Mg Tablet.er 600 Mg PO PRN Q8HRS PRN 01/18/17 Reported Clopidogrel (Clopidogrel Bisulfate) 75 Mg Tablet 1 Tab PO DAILY 01/18/17 Reported Novolog Flexpen (Insulin Aspart) 100 Unit/1 Ml Insuln.pen 0-3 Unit SQ QIDACHS 10/25/19 Reported PATIENT SLIDING SCALE. 70-249= 0 UNITS. 250-400= 3UNITS. BEFORE MEALS AND AT BEDTIME GIVE 3 UNITS IF BLOOD SUGAR 250 OR ABOVE. Diclofenac Sodium 100 Gm Gel..gram. 1 Carlos TP DAILY 10/25/19 Reported D3-50 (Cholecalciferol (Vitamin D3)) 50,000 Unit Capsule 50,000 Unit PO DAILY 10/25/19 Reported Trazodone Hcl 50 Mg Tablet 0.5 Tab PO QHS 10/25/19 Reported Reglan (Metoclopramide Hcl) 5 Mg Tablet 5 Mg PO DAILY 10/25/19 Reported Protonix (Pantoprazole Sodium) 20 Mg Tablet.dr 1 Tab PO DAILY 10/25/19 Reported Ashmore 5-325 Tablet (Hydrocodone Bit/Acetaminophen) 1 Each Tablet 1 Tab PO Q4HRS 10/25/19 Reported Naproxen 500 Mg Tablet 1 Tab PO Q8HRS 10/25/19 Reported Lisinopril 2.5 Mg Tablet 1 Tab PO DAILY 10/25/19 Reported Lidocaine PATCH (Lidocaine) 1 Each Adh..patch 1 Each TP DAILY 10/25/19 Reported REMOVE AFTER 12 HOURS Lasix (Furosemide) 20 Mg Tablet 1 Tab PO DAILY 30 10/25/19 Reported Duoneb 0.5-3(2.5) Mg/3 Ml (Albuterol/Ipratropium) 3 Ml Ampul.neb 3 Ml NEB QID 10/25/19 Reported Imodium A-D (Loperamide HCl) 2 Mg Capsule 2 Mg PO DAILY 10/25/19 Reported Guaifenesin 400 Mg Tablet 400 Mg PO Q8HRS 10/25/19 Reported Coreg (Carvedilol) 3.125 Mg Tablet 3.125 Mg PO BID 10/25/19 Reported Clopidogrel (Clopidogrel Bisulfate) 75 Mg Tablet 75 Mg PO DAILY 10/25/19 Reported Citalopram Hbr (Citalopram Hydrobromide) 10 Mg Tablet 10 Mg PO DAILY 10/25/19 Reported Atorvastatin Calcium 10 Mg Tablet 10 Mg PO DAILY 10/25/19 Reported Proair Hfa Inhaler (Albuterol Sulfate) 8.5 Gm Hfa.aer.ad 1 Puff INH PRN Q6HRS 10/25/19 Reported Acetaminophen 500 Mg Tablet 1 Tab PO PRN Q6HRS 10/25/19 Reported Glimepiride 1 Mg Tablet 1 Mg PO DAILY 07/05/14 Reported Simvastatin 40 Mg Tablet 40 Mg PO HS 07/05/14 Reported Omeprazole 20 Mg Capsule.dr 20 Mg PO DAILY 07/05/14 Reported Januvia (Sitagliptin Phosphate) 100 Mg Tablet 100 Mg PO DAILY 07/05/14 Reported Comments Chest x-ray 624 improved ECHO <Conclusion> The left ventricular systolic function is severely impaired. The Ejection Fraction is 25%. Transmitral Doppler flow pattern is Grade II-pseudonormal filling dynamics. Mild to moderate mitral regurgitation. Moderate to severe tricuspid regurgitation with an estimated PAP of 83 mmHg. There is severe pulmonary hypertension. There is no evidence of significant pericardial effusion. Impression . IMPRESSION: 1. Acute respiratory failure, multifactorial in etiology. Extubated 11/04 /developed flash pulmonary edema post extubation from hypertensive urgency Rx with lasix/ bipap, --- improving patient set up with home noninvasive ventilation 2. New-onset seizure.-- no further seizures reported 3. Acute diastolic congestive heart failure, rule out myocardial infarction, less likely pneumonia. 4. Abnormal chest x-ray. 5. Electrolyte abnormality. 6. Hypertensive urgency. 7. Diabetes mellitus. 8. COVID-19 Neg 9. Dysphagia 10. cardiomyopathy EF 25% Plan . Follow cardiology input PRN BiPAP Hemoglobin drop, left heart and right heart catheterization placed on hold Transfuse as needed Continue PPN -- speech following Follow GI recs Cont. ABX PT/OT -- OOB as tolerated D/W CRYS CHUA MD Nov 14, 2019 09:33
--- NOTE | 2019-11-14 10:31 | PDOC ---
Subjective: Subjective: "Stomach." Objective: Objective: D/w nurse - ate a small amount of pudding, had a loose-titus stool. Remains on PPN for poor appetite. Denies at [facility], [id number] set up. Vital Signs: Vital Signs Date Time Temp Pulse Resp B/P (MAP) Pulse Ox O2 Delivery O2 Flow Rate FiO2 11/14/19 08:47 87 179/80 11/14/19 08:00 Nasal Cannula 3.0 11/14/19 07:00 97.5 18 97 97.5 Labs: Laboratory Tests Test 11/13/19 11:34 11/13/19 16:40 11/13/19 17:38 11/14/19 00:11 Glucose (Fingerstick) 353 mg/dL 206 mg/dL 165 mg/dL Random Vancomycin Level 18.3 mcg/mL Test 11/14/19 05:49 11/14/19 06:45 Glucose (Fingerstick) 173 mg/dL White Blood Count 15.7 x10^3/uL Red Blood Count 2.84 x10^6/uL Hemoglobin 8.7 g/dL Hematocrit 25.8 % Mean Corpuscular Volume 91 fL Mean Corpuscular Hemoglobin 31 pg Mean Corpuscular Hemoglobin Concent 34 g/dL Red Cell Distribution Width 17.3 % Platelet Count 349 x10^3/uL Sodium Level 136 mmol/L Potassium Level 3.6 mmol/L Chloride Level 100 mmol/L Carbon Dioxide Level 25 mmol/L Anion Gap 11 Blood Urea Nitrogen 58 mg/dL Creatinine 1.7 mg/dL Estimated GFR (Cockcroft-Gault) 28.9 Glucose Level 178 mg/dL Calcium Level 8.6 mg/dL Imaging: CXR 11/13 pending PE: GEN: chronically ill LUNGS: diminished, poor effort HEART: RR ABD: epigastric tenderness, BS+ NEURO/PSYCH: says a couple words A/P: CHF, encephalopathy Anorexia, epigastric discomfort - on PPI Normocytic anemia, B12 deficiency - stable -- Epigastrium tender on exam - check KUB. Justicifation of Admission Dx: Justifications for Admission: Justification of Admission Dx: Yes Respiratory Failure: Mechanical Ventilation Altered Mental Status: Altered Mental Status MARKOS PATINO Nov 14, 2019 10:31
[2019-11-14 10:49] VITALS: BP 161/71
--- NOTE | 2019-11-14 12:05 | RAD ---
Portable chest x-ray compared to similar exam dated November 12, 2019 for congestive heart failure. FINDINGS: There is redemonstration of diffuse bilateral airspace infiltrates along with central vascular congestion, left basilar effusion and dense consolidation left lung base. Overall appearance of the chest is grossly stable. Heart size is mildly enlarged but unchanged. Dense atherosclerosis of the aortic arch. IMPRESSION: 1. Stable chest x-ray with persistent airspace infiltrates, vascular congestion, left basilar effusion and dense consolidation at the left base. Findings may relate to congestive heart failure, with or without superimposed infection. Electronically signed by: Sai Tobin MD (11/14/2019 12:02 PM) [id number]
--- NOTE | 2019-11-14 12:30 | RAD ---
KUB without comparison for epigastric pain, anorexia. FINDINGS: There is scattered abdominal bowel gas in a nonobstructive nonspecific pattern, with air seen to level the rectum. Postsurgical changes of the epigastrium are noted. Degenerative changes of the spine are seen. IMPRESSION: 1. Nonobstructive nonspecific bowel gas pattern. Electronically signed by: Sai Tobin MD (11/14/2019 12:27 PM) [id number]
[2019-11-14] MEDS: AMINO AC 3%/ELECTROLYTE/GLYCER 1,000 ML IV SCH (12:32)
--- NOTE | 2019-11-14 12:47 | PDOC ---
[employer] [employer] MONITOR 11/14/19 1247: CARDIO Progress Notes Date and Time Date of Service 11/14/2019 Time of Evaluation 1120 Subjective Subjective: No Chest Pain, No shortness of breath, No Palpitations Vitals Vitals Vital Signs Date Time Temp Pulse Resp B/P (MAP) Pulse Ox O2 Delivery O2 Flow Rate FiO2 11/14/19 10:49 97.0 77 18 161/71 (101) 97 Nasal Cannula 3.0 97.0 Weight Weight [ ] Input and Output Intake and Output Intake and Output 11/14/19 07:00 Intake Total 1434 ml Output Total 1450 ml Balance -16 ml Intake Oral 120 ml IV Total 1314 ml Output Urine Total 1450 ml # Bowel Movements 2 Laboratory Labs Laboratory Tests Test 11/13/19 16:40 11/13/19 17:38 11/14/19 00:11 11/14/19 05:49 Random Vancomycin Level 18.3 mcg/mL Glucose (Fingerstick) 206 mg/dL (70-99) 165 mg/dL (70-99) 173 mg/dL (70-99) Test 11/14/19 06:45 11/14/19 12:14 White Blood Count 15.7 x10^3/uL (4.0-11.0) Red Blood Count 2.84 x10^6/uL (3.50-5.40) Hemoglobin 8.7 g/dL (12.0-15.5) Hematocrit 25.8 % (36.0-47.0) Mean Corpuscular Volume 91 fL (79-100) Mean Corpuscular Hemoglobin 31 pg (25-35) Mean Corpuscular Hemoglobin Concent 34 g/dL (31-37) Red Cell Distribution Width 17.3 % (11.5-14.5) Platelet Count 349 x10^3/uL (140-400) Sodium Level 136 mmol/L (136-145) Potassium Level 3.6 mmol/L (3.5-5.1) Chloride Level 100 mmol/L (98-107) Carbon Dioxide Level 25 mmol/L (21-32) Anion Gap 11 (6-14) Blood Urea Nitrogen 58 mg/dL (7-20) Creatinine 1.7 mg/dL (0.6-1.0) Estimated GFR (Cockcroft-Gault) 28.9 Glucose Level 178 mg/dL (70-99) Calcium Level 8.6 mg/dL (8.5-10.1) Glucose (Fingerstick) 180 mg/dL (70-99) Physical Exam HEENT: Neck Supple W Full Motion Chest: Symmetric LUNGS: Other (basilar crackles) Heart: RRR (SR), murmurs (4/6 systolic murmur to LLS border) Abdomen: Other (soft, slightly tender) Extremities: No Edema, No Calf Tenderness Neurology: alert, follow commands Assessment Assessment 1. Accelerated hypertension: controlled 2. New onset seizure disorder with encephalopathy: on keppra per neurology. pt remains pleasantly confused 3. Acute respiratory failure, multifactorial: s/p intubation, treat per pulmonary team. COVID test negative 4. 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 Mild troponin elevation: type 2 6. Paroxysmal Torsades: none further after BB initiation 7. Asymptomatic SB: lowest 50s. none further, no pauses 8. Normocytic anemia with hx of MGUS: post transfusion. Hgb stable at 8.7 9. Protein malnutrition 10. Hx of LE PAD: hence on plavix with past stenting in 2017 11. NICM: EF at 25% 12. Moderate to severe TR 13. Severe Pulmonary HTN: PAP 83 mmhg New 14. Iodine allergy: unknown reaction Recommendations 1. DC toprol as pt has difficulty with swallowing will place on metoprolol IR at higher dose. Continue lasix therapy with extra dose today. Continue plavix. Possible H transfer and if so will follow over there 2. Continue entresto 3. FR 2L caution with IVF 4. Continue HF regimen optimization. AICD consideration in 3 months.Lifevest an option pending pt mentation. Justicifation of Admission Dx: Justifications for Admission: Justification of Admission Dx: Yes Respiratory Failure: Mechanical Ventilation Altered Mental Status: Altered Mental Status ASHELY SANCHES MD 11/15/19 0916: CARDIO Progress Notes Assessment Assessment Patient seen and examined 11/14/19. Agree with PAYMENT COLLECTOR's assessment and plan. No further torsades noted on telemetry. Continue beta-blockers. Acute on chronic combined systolic and diastolic heart failure better compensated. Continue diuretics. Blood pressure better controlled. Continue treatment of seizures/encephalopathy per neurology team. [employer] [employer] MONITOR Nov 14, 2019 12:47 ASHELY SANCHES MD Nov 15, 2019 09:16
[2019-11-14] MEDS: hydrALAZINE 25 MG TABLET PO SCH ×2 (14:11→21:07)
--- NOTE | 2019-11-14 14:17 | PDOC ---
PROGRESS NOTES Assessment Hallucinations Pre-existing dementia, keep in mind the possibility of PRES and side effects of levetiracetam Seizure, no evidence of recurrence Possible posterior reversible encephalopathy syndrome, no evidence of this clinically now Having a cardiac catheterization today (11/07) Medical issues: anemia, aspiration pneumonia, resolved respiratory failure, severe hypertension, hypokalemia (resolved), elevated troponin, elevated BNP, heart failure, ejection fraction 25%, paroxysmal torsades, sinus bradycardia, anemia, peripheral artery disease, pulmonary hypertension Cardiac cath canceled, awaiting plans for rescheduling Plan Levetiracetam, consider taper off after 3-6 months Treatment of medical problems. I understand [facility] is going [facility] No complaints Objective Vital Signs Date Time Temp Pulse Resp B/P (MAP) Pulse Ox O2 Delivery O2 Flow Rate FiO2 11/14/19 10:49 97.0 77 18 161/71 (101) 97 Nasal Cannula 3.0 97.0 Intake and Output 11/14/19 07:00 Intake Total 1434 ml Output Total 1450 ml Balance -16 ml Intake Oral 120 ml IV Total 1314 ml Output Urine Total 1450 ml # Bowel Movements 2 PHYSICAL EXAM Alert. Oriented to place and person, off on date. PERRL. EOMI. CN: no focal findings. Muscle tone: normal. Muscle strength: 4/5 DTR: 2+ Plantar reflex: flexor Gait: not examined in bed. Sensory exam: no abnormal findings. No cerebellar signs elicited. Review of Relevant I have reviewed the following items regina (where applicable) has been applied. Labs Laboratory Tests Test 11/12/19 16:06 11/12/19 20:47 11/13/19 04:27 11/13/19 07:38 Glucose (Fingerstick) 292 mg/dL (70-99) 326 mg/dL (70-99) 333 mg/dL (70-99) Random Vancomycin Level 22.1 mcg/mL Test 11/13/19 08:50 11/13/19 11:34 11/13/19 16:40 11/13/19 17:38 White Blood Count 11.9 x10^3/uL (4.0-11.0) Red Blood Count 2.70 x10^6/uL (3.50-5.40) Hemoglobin 8.0 g/dL (12.0-15.5) Hematocrit 24.3 % (36.0-47.0) Mean Corpuscular Volume 90 fL (79-100) Mean Corpuscular Hemoglobin 30 pg (25-35) Mean Corpuscular Hemoglobin Concent 33 g/dL (31-37) Red Cell Distribution Width 16.8 % (11.5-14.5) Platelet Count 343 x10^3/uL (140-400) Sodium Level 137 mmol/L (136-145) Potassium Level 3.3 mmol/L (3.5-5.1) Chloride Level 100 mmol/L (98-107) Carbon Dioxide Level 23 mmol/L (21-32) Anion Gap 14 (6-14) Blood Urea Nitrogen 54 mg/dL (7-20) Creatinine 1.6 mg/dL (0.6-1.0) Estimated GFR (Cockcroft-Gault) 31.0 Glucose Level 335 mg/dL (70-99) Calcium Level 8.7 mg/dL (8.5-10.1) Magnesium Level 1.9 mg/dL (1.8-2.4) Glucose (Fingerstick) 353 mg/dL (70-99) 206 mg/dL (70-99) Random Vancomycin Level 18.3 mcg/mL Test 11/14/19 00:11 11/14/19 05:49 11/14/19 06:45 11/14/19 12:14 Glucose (Fingerstick) 165 mg/dL (70-99) 173 mg/dL (70-99) 180 mg/dL (70-99) White Blood Count 15.7 x10^3/uL (4.0-11.0) Red Blood Count 2.84 x10^6/uL (3.50-5.40) Hemoglobin 8.7 g/dL (12.0-15.5) Hematocrit 25.8 % (36.0-47.0) Mean Corpuscular Volume 91 fL (79-100) Mean Corpuscular Hemoglobin 31 pg (25-35) Mean Corpuscular Hemoglobin Concent 34 g/dL (31-37) Red Cell Distribution Width 17.3 % (11.5-14.5) Platelet Count 349 x10^3/uL (140-400) Sodium Level 136 mmol/L (136-145) Potassium Level 3.6 mmol/L (3.5-5.1) Chloride Level 100 mmol/L (98-107) Carbon Dioxide Level 25 mmol/L (21-32) Anion Gap 11 (6-14) Blood Urea Nitrogen 58 mg/dL (7-20) Creatinine 1.7 mg/dL (0.6-1.0) Estimated GFR (Cockcroft-Gault) 28.9 Glucose Level 178 mg/dL (70-99) Calcium Level 8.6 mg/dL (8.5-10.1) Laboratory Tests Test 11/13/19 16:40 11/13/19 17:38 11/14/19 00:11 11/14/19 05:49 Random Vancomycin Level 18.3 mcg/mL Glucose (Fingerstick) 206 mg/dL (70-99) 165 mg/dL (70-99) 173 mg/dL (70-99) Test 11/14/19 06:45 11/14/19 12:14 White Blood Count 15.7 x10^3/uL (4.0-11.0) Red Blood Count 2.84 x10^6/uL (3.50-5.40) Hemoglobin 8.7 g/dL (12.0-15.5) Hematocrit 25.8 % (36.0-47.0) Mean Corpuscular Volume 91 fL (79-100) Mean Corpuscular Hemoglobin 31 pg (25-35) Mean Corpuscular Hemoglobin Concent 34 g/dL (31-37) Red Cell Distribution Width 17.3 % (11.5-14.5) Platelet Count 349 x10^3/uL (140-400) Sodium Level 136 mmol/L (136-145) Potassium Level 3.6 mmol/L (3.5-5.1) Chloride Level 100 mmol/L (98-107) Carbon Dioxide Level 25 mmol/L (21-32) Anion Gap 11 (6-14) Blood Urea Nitrogen 58 mg/dL (7-20) Creatinine 1.7 mg/dL (0.6-1.0) Estimated GFR (Cockcroft-Gault) 28.9 Glucose Level 178 mg/dL (70-99) Calcium Level 8.6 mg/dL (8.5-10.1) Glucose (Fingerstick) 180 mg/dL (70-99) Medications Current Medications Fentanyl Citrate 30 ml @ 0 mls/hr CONT PRN IV SEE PROTOCOL; Start 11/02/19 at 02:45; Status Cancel Propofol 100 ml @ 0 mls/hr CONT PRN IV SEE PROTOCOL; Start 11/02/19 at 02:45; Status Cancel Fentanyl Citrate (Fentanyl 2ml Vial) 25 mcg PRN Q1HR PRN IV SEE COMMENTS; Start 11/02/19 at 02:45; Status Cancel Fentanyl Citrate (Fentanyl 2ml Vial) 50 mcg PRN Q1HR PRN IV SEE COMMENTS; Start 11/02/19 at 02:45; Status Cancel Chlorhexidine Gluconate (Peridex) 15 ml BID MM ; Start 11/02/19 at 09:00; Status Cancel Morphine Sulfate (Morphine Sulfate) 2 mg PRN Q1HR PRN IV SEE COMMENTS.; Start 11/02/19 at 02:45; Status Cancel Morphine Sulfate (Morphine Sulfate) 4 mg PRN Q1HR PRN IV SEE COMMENTS.; Start 11/02/19 at 02:45; Status Cancel Midazolam HCl 100 ml @ 0 mls/hr CONT PRN IV SEE PROTOCOL; Start 11/02/19 at 02:45; Status Cancel Diphenhydramine HCl (Benadryl) 25 mg PRN Q15MIN PRN IVP EPS Symptoms; Start 11/02/19 at 02:45; Status Cancel Nicardipine HCl 50 mg/Sodium Chloride 250 ml @ 25 mls/hr CONT PRN IV SEE I/O RECORD Last administered on 11/02/19at 16:45; Start 11/02/19 at 03:15 Propofol 100 ml @ As Directed STK-MED ONCE IV ; Start 11/02/19 at 02:49; Stop 11/02/19 at 03:22; Status DC Propofol 100 ml @ 0 mls/hr CONT PRN IV SEE PROTOCOL Last administered on 11/03/19at 11:18; Start 11/02/19 at 03:30; Stop 11/03/19 at 13:54; Status DC Fentanyl Citrate (Fentanyl 2ml Vial) 25 mcg PRN Q1HR PRN IV SEE COMMENTS; Start 11/02/19 at 03:30; Stop 11/06/19 at 10:08; Status DC Fentanyl Citrate (Fentanyl 2ml Vial) 50 mcg PRN Q1HR PRN IV SEE COMMENTS; Start 11/02/19 at 03:30; Stop 11/06/19 at 10:08; Status DC Chlorhexidine Gluconate (Peridex) 15 ml BID MM Last administered on 11/05/19at 08:54; Start 11/02/19 at 09:00; Stop 11/06/19 at 10:08; Status DC Famotidine (Pepcid Vial) 20 mg DAILY IVP Last administered on 11/07/19at 08:39; Start 11/02/19 at 09:00; Stop 11/08/19 at 09:56; Status DC Morphine Sulfate (Morphine Sulfate) 2 mg PRN Q1HR PRN IV SEE COMMENTS. Last administered on 11/04/19at 17:55; Start 11/02/19 at 03:30 Morphine Sulfate (Morphine Sulfate) 4 mg PRN Q1HR PRN IV SEE COMMENTS. Last administered on 11/07/19at 05:18; Start 11/02/19 at 03:30 Potassium Bicarbonate (Potassium Effervescent Tablet) 40 meq 1X ONCE PEG Last administered on 11/02/19at 08:38; Start 11/02/19 at 07:30; Stop 11/02/19 at 07:31; Status DC Potassium Bicarbonate (Potassium Effervescent Tablet) 40 meq 1X ONCE PEG Last administered on 11/02/19at 10:02; Start 11/02/19 at 08:00; Stop 11/02/19 at 08:01; Status DC Potassium Bicarbonate (Potassium Effervescent Tablet) 40 meq 1X ONCE PEG Last administered on 11/02/19at 10:41; Start 11/02/19 at 09:00; Stop 11/02/19 at 09:01; Status DC Magnesium Sulfate 50 ml @ 25 mls/hr 1X ONCE IV Last administered on 11/02/19at 08:37; Start 11/02/19 at 07:30; Stop 11/02/19 at 09:29; Status DC Famotidine (Pepcid Vial) 20 mg DAILY IVP ; Start 11/02/19 at 09:00; Status UNV Ceftriaxone Sodium (Rocephin) 1 gm Q24H IVP Last administered on 11/04/19at 08:46; Start 11/02/19 at 09:00; Stop 11/04/19 at 15:04; Status DC Levetiracetam 1000 mg/Dextrose 110 ml @ 440 mls/hr Q12HR IV Last administered on 11/03/19 09:13; Start 11/02/19 at 11:00; Stop 11/03/19 at 09:32; Status DC Acetaminophen (Tylenol) 650 mg PRN Q6HRS PRN PO PAIN Last administered on 11/11/19 20:36; Start 11/02/19 at 10:15 Atorvastatin Calcium (Lipitor) 10 mg QHS PO Last administered on 11/13/19 21:42; Start 11/02/19 at 21:00 Carvedilol (Coreg) 3.125 mg BIDWMEALS PO Last administered on 11/03/19 08:02; Start 11/02/19 at 11:00; Stop 11/07/19 at 12:02; Status DC Cetirizine HCl (ZyrTEC) 10 mg DAILY PO Last administered on 11/14/19 08:47; Start 11/02/19 at 11:00 Citalopram Hydrobromide (CeleXA) 15 mg DAILY PO Last administered on 11/03/19 09:14; Start 11/02/19 at 11:00; Stop 11/03/19 at 13:50; Status DC Clopidogrel Bisulfate (Plavix) 75 mg DAILY PO Last administered on 11/05/19 08:53; Start 11/02/19 at 11:00; Stop 11/05/19 at 15:30; Status DC Diclofenac Sodium (Voltaren) 1 carlos BID PRN TP BREAKTHROUGH PAIN; Start 11/02/19 at 10:15 Furosemide (Lasix) 20 mg QEVNG PO Last administered on 11/04/19at 17:54; Start 11/02/19 at 18:00; Stop 11/07/19 at 11:59; Status DC Furosemide (Lasix) 40 mg QAM PO Last administered on 11/05/19 08:54; Start 11/02/19 at 11:00; Stop 11/07/19 at 11:59; Status DC Albuterol Sulfate (Ventolin Neb Soln) 2.5 mg PRN Q4HRS PRN NEB SHORTNESS OF BREATH Last administered on 11/07/19 20:16; Start 11/02/19 at 10:30 Latanoprost (Xalatan) 1 drop QHS OU Last administered on 7/1/20at 21:55; Start 11/02/19 at 21:00 Lidocaine (Lidoderm) 1 patch PRN DAILY PRN TP PAIN; Start 11/02/19 at 09:00 Pantoprazole Sodium (Protonix) 20 mg DAILYAC PO ; Start 11/03/19 at 07:30; Status UNV Phenol (Chloraseptic) 1 spray PRN Q6HRS PRN MM SORE THROAT; Start 11/02/19 at 10:15 Piperacillin Sod/ Tazobactam Sod 3.375 gm/Sodium Chloride 50 ml @ 100 mls/hr Q6HRS IV Last administered on 11/14/19at 12:31; Start 11/02/19 at 11:00 Vancomycin HCl (Vanco Per Pharmacy) 1 each PRN DAILY PRN MC SEE COMMENTS Last administered on 11/13/19at 19:04; Start 11/02/19 at 10:30 Vancomycin HCl 1 gm/Sodium Chloride 250 ml @ 250 mls/hr Q24H IV Last administered on 11/03/19at 22:57; Start 11/02/19 at 22:00; Stop 11/04/19 at 07:00; Status DC Vancomycin HCl (Vancomycin Trough Level) 1 each 1X ONCE MC Last administered on 11/03/19at 21:30; Start 11/03/19 at 21:30; Stop 11/03/19 at 21:31; Status DC Levetiracetam 500 mg/Dextrose 105 ml @ 420 mls/hr Q12HR IV Last administered on 11/07/19at 08:38; Start 11/03/19 at 21:00; Stop 11/07/19 at 13:16; Status DC Magnesium Sulfate 50 ml @ 25 mls/hr 1X ONCE IV Last administered on 11/03/19at 13:33; Start 11/03/19 at 12:00; Stop 11/03/19 at 13:59; Status DC Sertraline HCl (Zoloft) 50 mg DAILY PO Last administered on 11/14/19at 08:47; Start 11/04/19 at 09:00 Losartan Potassium (Cozaar) 25 mg DAILY NG Last administered on 11/05/19at 08:54; Start 11/03/19 at 14:00; Stop 11/05/19 at 09:40; Status DC Dexmedetomidine HCl 400 mcg/ Sodium Chloride 100 ml @ 0 mls/hr CONT PRN IV PER PROTOCOL Last administered on 11/05/19at 02:05; Start 11/03/19 at 14:00; Stop 11/06/19 at 10:08; Status DC Sodium Chloride 500 ml @ 500 mls/hr 1X PRN PRN IV SEE COMMENTS; Start 11/03/19 at 14:00 Atropine Sulfate (ATROPINE 0.5mg SYRINGE) 0.5 mg PRN Q5MIN PRN IV SEE COMMENTS; Start 11/03/19 at 14:00; Stop 11/07/19 at 12:28; Status DC Vancomycin HCl 1 gm/Sodium Chloride 250 ml @ 250 mls/hr Q18H IV Last administered on 11/11/19at 10:51; Start 11/04/19 at 17:00; Stop 11/12/19 at 06:10; Status DC Vancomycin HCl (Vancomycin Trough Level) 1 each 1X ONCE MC Last administered on 11/06/19at 04:30; Start 11/06/19 at 04:30; Stop 11/06/19 at 04:31; Status DC Losartan Potassium (Cozaar) 50 mg DAILY NG Last administered on 11/08/19at 11:05; Start 11/05/19 at 09:45; Stop 11/08/19 at 14:57; Status DC Epinephrine (S2 Racepinephrine) 0.5 ml 1X ONCE NEB Last administered on 11/05/19at 12:00; Start 11/05/19 at 12:00; Stop 11/05/19 at 12:01; Status DC Methylprednisolone Sodium Succinate (SOLU-Medrol 125MG VIAL) 100 mg 1X ONCE IV Last administered on 11/05/19at 12:15; Start 11/05/19 at 12:00; Stop 11/05/19 at 12:01; Status DC Furosemide (Lasix) 20 mg 1X STAT IVP Last administered on 11/05/19at 12:14; St art 11/05/19 at 12:08; Stop 11/05/19 at 12:12; Status DC Furosemide (Lasix) 20 mg 1X ONCE IVP Last administered on 11/05/19at 14:26; Start 11/05/19 at 14:15; Stop 11/05/19 at 14:16; Status DC Clopidogrel Bisulfate (Plavix) 75 mg DAILY PO Last administered on 11/14/19at 08:48; Start 11/07/19 at 11:00 Metoprolol Tartrate (Lopressor Vial) 5 mg ONCE ONCE IVP Last administered on 11/05/19at 23:56; Start 11/06/19 at 00:00; Stop 11/06/19 at 00:01; Status DC Potassium Chloride (Klor-Con) 40 meq 1X PRN PRN PO PER PROTOCOL; Start 11/05/19 at 23:45 Potassium Bicarbonate (Potassium Effervescent Tablet) 40 meq 1X PRN PRN PO PER PROTOCOL; Start 11/05/19 at 23:45 Potassium Chloride/Water 100 ml @ 100 mls/hr PRN Q1HR PRN IV PER PROTOCOL Last administered on 11/06/19at 06:03; Start 11/05/19 at 23:45; Stop 11/06/19 at 06:11; Status DC Potassium Chloride/Water 100 ml @ 100 mls/hr PRN Q1HR PRN IV PER PROTOCOL; Start 11/05/19 at 23:45 Potassium Chloride (Klor-Con) 40 meq PRN Q2HRS PRN PO PER PROTOCOL; Start 11/05/19 at 23:45 Potassium Chloride/Water 100 ml @ 100 mls/hr PRN Q1HR PRN IV PER PROTOCOL; Start 11/05/19 at 23:45 Potassium Chloride/Water 100 ml @ 100 mls/hr PRN Q1HR PRN IV PER PROTOCOL; Start 11/05/19 at 23:45; Stop 11/06/19 at 07:44; Status DC Potassium Chloride (Klor-Con) 40 meq PRN Q2HRS PRN PO PER PROTOCOL; Start 11/05/19 at 23:45 Potassium Chloride/Water 100 ml @ 100 mls/hr PRN Q1HR PRN IV PER PROTOCOL; Start 11/05/19 at 23:45 Potassium Chloride/Water 100 ml @ 100 mls/hr PRN Q1HR PRN IV PER PROTOCOL; Start 11/06/19 at 00:01; Stop 11/06/19 at 07:44; Status DC Magnesium Sulfate 100 ml @ 50 mls/hr PRN DAILY PRN IV PER PROTOCOL; Start 11/06/19 at 00:00 Potassium Phos/ Sodium Phos (Phos-Nak) 1 pkt PRN BID PRN PO PER PROTOCOL; Start 11/06/19 at 09:00 Sodium Phosphate 40 mmol/Sodium Chloride 263.3333 ml @ 62.5 mls/hr 1X PRN PRN IV PER PROTOCOL; Start 11/05/19 at 23:45 Potassium Phosphate 13.6 mmol/Sodium Chloride 254.5333 ml @ 62.5 mls/hr PRN Q4HRS PRN IV PER PROTOCOL; Start 11/05/19 at 23:45 Magnesium Sulfate 50 ml @ 25 mls/hr 1X ONCE IV Last administered on 11/06/19at 00:31; Start 11/06/19 at 01:00; Stop 11/06/19 at 02:59; Status DC Metoprolol Tartrate (Lopressor Vial) 5 mg 1X ONCE IVP Last administered on 11/06/19at 01:52; Start 11/06/19 at 02:00; Stop 11/06/19 at 02:01; Status DC Miscellaneous (Lidoderm Patch Removal) 1 ea PRN QHS PRN MC SEE COMMENTS; Start 11/06/19 at 08:00 Metoprolol Tartrate (Lopressor Vial) 5 mg Q6HRS IVP Last administered on 11/07/19at 05:21; Start 11/06/19 at 12:00; Stop 11/07/19 at 11:59; Status DC Cyanocobalamin (Vitamin B-12) 1,000 mcg DAILY IM Last administered on 11/14/19at 08:50; Start 11/06/19 at 14:30 Furosemide (Lasix) 40 mg 1X ONCE IVP Last administered on 11/06/19at 17:35; Start 11/06/19 at 17:30; Stop 11/06/19 at 17:31; Status DC Amino Acids/ Glycerin/ Electrolytes 1,000 ml @ 80 mls/hr [id number] IV Last administered on 11/14/19at 12:32; Start 11/07/19 at 10:15 Metoprolol Succinate (Toprol Xl) 50 mg DAILY PO Last administered on 11/13/19at 07:40; Start 11/08/19 at 09:00; Stop 11/13/19 at 11:49; Status DC Furosemide (Lasix) 40 mg DAILY PO Last administered on 11/13/19at 07:41; Start 11/08/19 at 09:00; Stop 11/13/19 at 08:19; Status DC Lactobacillus Rhamnosus (Culturelle) 1 cap BID PO Last administered on 11/14/19at 08:46; Start 11/07/19 at 21:00 Levetiracetam (Keppra) 500 mg BID PO Last administered on 11/14/19at 08:47; Start 11/07/19 at 21:00 Furosemide (Lasix) 40 mg 1X ONCE IVP Last administered on 11/07/19at 21:55; Start 11/07/19 at 21:45; Stop 11/07/19 at 21:46; Status DC Cyanocobalamin (Vitamin B-12) 1,000 mcg 1X ONCE IM ; Start 11/08/19 at 08:30; Stop 11/08/19 at 08:31; Status DC Potassium Chloride (Klor-Con) 40 meq 1X ONCE PO ; Start 11/08/19 at 09:30; Stop 11/08/19 at 09:31; Status Cancel Furosemide (Lasix) 40 mg 1X ONCE IVP Last administered on 11/08/19at 17:56; Start 11/08/19 at 09:30; Stop 11/08/19 at 09:33; Status DC Pantoprazole Sodium (Protonix) 40 mg DAILYAC PO Last administered on 11/13/19at 07:41; Start 11/09/19 at 07:30; Stop 11/13/19 at 10:25; Status DC Potassium Chloride (Klor-Con) 40 meq 1X ONCE PO Last administered on 11/08/19at 11:31; Start 11/08/19 at 10:45; Stop 11/08/19 at 10:46; Status DC Potassium Chloride (Klor-Con) 40 meq 1X ONCE PO Last administered on 11/08/19at 17:56; Start 11/08/19 at 12:30; Stop 11/08/19 at 12:31; Status DC Potassium Chloride (Klor-Con) 40 meq 1X ONCE PO ; Start 11/08/19 at 11:15; Sto p 11/08/19 at 11:16; Status DC Sacubitril/ Valsartan (Entresto 24 Mg-26 Mg) 1 tab BID PO Last administered on 11/14/19at 08:47; Start 11/10/19 at 09:00 Labetalol HCl (Normodyne Iv Push) 20 mg PRN Q2HR PRN IVP HYPERTENSION Last administered on 11/13/19at 03:18; Start 11/11/19 at 00:30 Vancomycin HCl (Vancomycin Trough Level) 1 each 1X ONCE MC Last administered on 11/12/19at 04:30; Start 11/12/19 at 04:30; Stop 11/12/19 at 04:31; Status DC Prednisone (Prednisone) 40 mg 1X ONCE PO Last administered on 11/11/19at 18:01; Start 11/11/19 at 17:30; Stop 11/11/19 at 17:33; Status DC Prednisone (Prednisone) 40 mg 1X ONCE PO Last administered on 11/11/19at 23:25; Start 11/11/19 at 23:00; Stop 11/11/19 at 23:01; Status DC Prednisone (Prednisone) 40 mg 1X ONCE PO Last administered on 11/12/19at 06:10; Start 11/12/19 at 07:00; Stop 11/12/19 at 07:01; Status DC Vancomycin HCl (Vancomycin Random Level) 1 each 1X ONCE MC ; Start 11/13/19 at 05:00; Stop 11/13/19 at 05:43; Status DC Methylprednisolone Sodium Succinate (SOLU-Medrol 125MG VIAL) 125 mg 1X ONCE IV Last administered on 11/12/19at 12:07; Start 11/12/19 at 10:45; Stop 11/12/19 at 10:46; Status DC Diphenhydramine HCl (Benadryl) 25 mg 1X ONCE IVP Last administered on 11/12/19at 12:39; Start 11/12/19 at 10:45; Stop 11/12/19 at 10:46; Status DC Famotidine (Pepcid Vial) 20 mg 1X ONCE IVP Last administered on 11/12/19at 12:07; Start 11/12/19 at 10:45; Stop 11/12/19 at 10:46; Status DC Lidocaine HCl (Lidocaine 1% 20ml Vial) 20 ml STK-MED ONCE .ROUTE ; Start 0 at 12:42; Stop 11/12/19 at 12:43; Status DC Iodixanol (Visipaque 320) 100 ml STK-MED ONCE .ROUTE ; Start 11/12/19 at 12:43; Stop 11/12/19 at 12:43; Status DC Heparin Sodium/ Sodium Chloride 1,000 ml @ As Directed STK-MED ONCE .ROUTE ; Start 11/12/19 at 12:43; Stop 11/12/19 at 12:43; Status DC Fentanyl Citrate (Fentanyl 2ml Vial) 100 mcg STK-MED ONCE .ROUTE ; Start 11/12/19 at 12:44; Stop 11/12/19 at 12:44; Status DC Midazolam HCl (Versed) 2 mg STK-MED ONCE .ROUTE ; Start 11/12/19 at 12:44; Stop 11/12/19 at 12:45; Status DC Heparin Sodium (Porcine) (Heparin Sodium) 10,000 unit STK-MED ONCE .ROUTE ; Start 11/12/19 at 12:44; Stop 11/12/19 at 12:45; Status DC Verapamil HCl (Verapamil) 5 mg STK-MED ONCE .ROUTE ; Start 11/12/19 at 12:44; Stop 11/12/19 at 12:45; Status DC Nitroglycerin (Nitroglycerin) 200 mcg STK-MED ONCE .ROUTE ; Start 11/12/19 at 12:44; Stop 11/12/19 at 12:45; Status DC Nitroglycerin (Nitroglycerin) 200 mcg 1X ONCE IART Last administered on 11/12/19at 13:59; Start 11/12/19 at 13:45; Stop 11/12/19 at 13:49; Status DC Verapamil HCl (Verapamil) 2.5 mg 1X ONCE IART Last administered on 11/12/19at 13:59; Start 11/12/19 at 13:45; Stop 11/12/19 at 13:49; Status DC Heparin Sodium (Porcine) (Heparin Sodium) 2,500 unit 1X ONCE IART Last admi nistered on 11/12/19at 13:58; Start 11/12/19 at 13:45; Stop 11/12/19 at 13:49; Status DC Heparin Sodium/ Sodium Chloride (HEPARIN for ARTERIAL LINE FLUSH) 1,000 unit 1X ONCE IART Last administered on 11/12/19at 13:57; Start 11/12/19 at 13:45; Stop 11/12/19 at 13:49; Status DC Heparin Sodium/ Sodium Chloride (HEPARIN for ARTERIAL LINE FLUSH) 1,000 unit 1X ONCE IART Last administered on 11/12/19at 13:57; Start 11/12/19 at 13:45; Stop 11/12/19 at 13:49; Status DC Fentanyl Citrate (Fentanyl 2ml Vial) 100 mcg 1X ONCE IV Last administered on 11/12/19at 14:00; Start 11/12/19 at 13:45; Stop 11/12/19 at 13:49; Status DC Iodixanol (Visipaque 320) 100 ml 1X ONCE IART Last administered on 11/12/19at 13:58; Start 11/12/19 at 13:45; Stop 11/12/19 at 13:50; Status DC Lidocaine HCl (Lidocaine 1% 20ml Vial) 20 ml 1X ONCE INJ Last administered on 11/12/19at 13:58; Start 11/12/19 at 13:45; Stop 11/12/19 at 13:49; Status DC Hydralazine HCl (Apresoline Inj) 10 mg PRN Q4HRS PRN IVP ELEVATED BP, SEE COMMENTS Last administered on 11/13/19at 14:59; Start 11/12/19 at 14:30 Furosemide (Lasix) 40 mg 1X ONCE IVP Last administered on 11/12/19at 16:22; S tart 11/12/19 at 16:00; Stop 11/12/19 at 16:01; Status DC Vancomycin HCl (Vanco Per Pharmacy) 1 each 1X STAT MC ; Start 11/13/19 at 05:30; Stop 11/13/19 at 05:31; Status UNV Vancomycin HCl (Vancomycin Random Level) 1 each 1X ONCE MC ; Start 11/13/19 at 17:00; Stop 11/13/19 at 17:01; Status DC Furosemide (Lasix) 40 mg DAILY IVP Last administered on 11/14/19at 08:48; Start 11/13/19 at 09:00 Insulin Human Lispro (HumaLOG) 0-7 UNITS TIDWMEALS SQ ; Start 11/13/19 at 09:00; Stop 11/13/19 at 09:01; Status DC Dextrose (Dextrose 50%-Water Syringe) 12.5 gm PRN Q15MIN PRN IV SEE COMMENTS; Start 11/13/19 at 09:00 Insulin Human Lispro (HumaLOG) 0-7 UNITS Q6HRS SQ Last administered on 11/13/19at 09:56; Start 11/13/19 at 09:00; Stop 11/13/19 at 11:47; Status DC Lansoprazole (Prevacid) 30 mg DAILY PO Last administered on 11/14/19at 08:48; Start 11/14/19 at 09:00 Info (Icu Electrolyte Protocol) 1 ea CONT PRN PRN MC PER PROTOCOL; Start 11/13/19 at 11:00; Stop 11/13/19 at 10:49; Status DC Info (Non-Icu Electrolyte Protocol) 1 ea CONT PRN PRN MC SEE COMMENTS; Start 11/13/19 at 11:00 Potassium Chloride/Water 100 ml @ 100 mls/hr Q1H IV Last administered on at 14:59; Start 11/13/19 at 11:30; Stop 11/13/19 at 15:29; Status DC Insulin Human Lispro (HumaLOG) 0-9 UNITS Q6HRS SQ Last administered on 11/14/19at 05:51; Start 11/13/19 at 12:00 Metoprolol Tartrate (Lopressor) 50 mg BID PO Last administered on 11/14/19at 08:47; Start 11/13/19 at 21:00 Vancomycin HCl 1 gm/Sodium Chloride 250 ml @ 250 mls/hr Q48H IV Last administered on 11/13/19at 19:28; Start 11/13/19 at 19:00 Furosemide (Lasix) 40 mg 1X ONCE IVP ; Start 11/14/19 at 15:00; Stop 11/14/19 at 15:01 Potassium Bicarbonate (Potassium Effervescent Tablet) 20 meq DAILY PEG ; Start 11/15/19 at 09:00 Hydralazine HCl (Apresoline) 25 mg TID PO ; Start 11/14/19 at 14:00 Active Scripts Active Reported Januvia (Sitagliptin Phosphate) 100 Mg Tablet 1 Tab PO DAILY Pantoprazole Sodium (Pantoprazole Sodium) 40 Mg Tablet. 20 Mg PO DAILYAC Glimepiride 1 Mg Tablet 1 Tab PO DAILY Hydrocodone-Apap 5-325 (Hydrocodone Bit/Acetaminophen) 1 Tab Tablet 1 Tab PO PRN Q6HRS PRN Lisinopril 10 Mg Tablet 1 Tab PO DAILY Acetaminophen 500 Mg Tablet 1 Tab PO BID Trazodone Hcl 50 Mg Tablet 0.5 Tab PO QHS Omeprazole 20 Mg Capsule.dr 1 Cap PO DAILY Novolog (Insulin Aspart) 100 Unit/1 Ml Cartridge 100 Unit SQ QIDACHS Naproxen 500 Mg Tablet 1 Tab PO PRN Q8HRS PRN Lidocaine PATCH (Lidocaine) 1 Each Adh..patch 1 Each TP DAILY REMOVE AFTER 12 HOURS Latanoprost 2.5 Ml Drops 1 Drop EACHEYE QHS Duoneb 0.5-3(2.5) Mg/3 Ml (Albuterol/Ipratropium) 3 Ml Ampul.neb 3 Ml NEB PRN Q4HRS PRN Imodium A-D (Loperamide HCl) 2 Mg Capsule 2 Mg PO PRN PRN Flonase Allergy Relief (Fluticasone Propionate) 9.9 Ml [place].susp 1 Sprays NS PRN Q12HRS PRN Coreg (Carvedilol) 3.125 Mg Tablet 3.125 Mg PO BIDWMEALS Chloraseptic (Phenol) 20 Ml [place] 1 [place] MM PRN Q6HRS PRN Calcium Citrate 250 Mg Tablet 500 Mg PO DAILY Tylenol (Acetaminophen) 325 Mg Tablet 2 Tab PO PRN Q6HRS PRN Atorvastatin Calcium 10 Mg Tablet 1 Tab PO QHS Proair Respiclick (Albuterol Sulfate) 90 Mcg Aer.pow.ba 1 Puff IH PRN Q6HRS PRN Alendronate Sodium 70 Mg Tablet 1 Tab PO WEEKLY Citalopram Hbr (Citalopram Hydrobromide) 10 Mg Tablet 1.5 Tab PO DAILY Cetirizine Hcl 10 Mg Tablet 1 Tab PO DAILY Guaifenesin 600 Mg Tablet.er 600 Mg PO PRN Q8HRS PRN Clopidogrel (Clopidogrel Bisulfate) 75 Mg Tablet 1 Tab PO DAILY Novolog Flexpen (Insulin Aspart) 100 Unit/1 Ml Insuln.pen 0-3 Unit SQ QIDACHS PATIENT SLIDING SCALE. 70-249= 0 UNITS. 250-400= 3UNITS. BEFORE MEALS AND AT BEDTIME GIVE 3 UNITS IF BLOOD SUGAR 250 OR ABOVE. Diclofenac Sodium 100 Gm Gel..gram. 1 [place] TP DAILY D3-50 (Cholecalciferol (Vitamin D3)) 50,000 Unit Capsule 50,000 Unit PO DAILY Trazodone Hcl 50 Mg Tablet 0.5 Tab PO QHS Reglan (Metoclopramide Hcl) 5 Mg Tablet 5 Mg PO DAILY Protonix (Pantoprazole Sodium) 20 Mg Tablet. 1 Tab PO DAILY Quinter 5-325 Tablet (Hydrocodone Bit/Acetaminophen) 1 Each Tablet 1 Tab PO Q4HRS Naproxen 500 Mg Tablet 1 Tab PO Q8HRS Lisinopril 2.5 Mg Tablet 1 Tab PO DAILY Lidocaine PATCH (Lidocaine) 1 Each Adh..patch 1 Each TP DAILY REMOVE AFTER 12 HOURS Lasix (Furosemide) 20 Mg Tablet 1 Tab PO DAILY 30 Days Duoneb 0.5-3(2.5) Mg/3 Ml (Albuterol/Ipratropium) 3 Ml Ampul.neb 3 Ml NEB QID Imodium A-D (Loperamide HCl) 2 Mg Capsule 2 Mg PO DAILY Guaifenesin 400 Mg Tablet 400 Mg PO Q8HRS Coreg (Carvedilol) 3.125 Mg Tablet 3.125 Mg PO BID Clopidogrel (Clopidogrel Bisulfate) 75 Mg Tablet 75 Mg PO DAILY Citalopram Hbr (Citalopram Hydrobromide) 10 Mg Tablet 10 Mg PO DAILY Atorvastatin Calcium 10 Mg Tablet 10 Mg PO DAILY Proair Hfa Inhaler (Albuterol Sulfate) 8.5 Gm Hfa.aer.ad 1 Puff INH PRN Q6HRS Acetaminophen 500 Mg Tablet 1 Tab PO PRN Q6HRS Glimepiride 1 Mg Tablet 1 Mg PO DAILY Simvastatin 40 Mg Tablet 40 Mg PO HS Omeprazole 20 Mg Capsule.dr 20 Mg PO DAILY Januvia (Sitagliptin Phosphate) 100 Mg Tablet 100 Mg PO DAILY Vitals/I & O Vital Sign - Last 24 Hours 11/13/19 11/13/19 11/13/19 11/13/19 14:38 14:59 18:25 19:25 Temp 98.1 98.0 98.1 98.0 Pulse 92 95 93 Resp 22 22 B/P (MAP) 164/99 (120) 164/99 153/56 (88) Pulse Ox 97 93 O2 Delivery Nasal Cannula Nasal Cannula Nasal Cannula O2 Flow Rate 3.0 3.0 2.0 11/13/19 11/13/19 11/13/19 11/14/19 21:44 21:46 23:00 03:00 Temp 98.3 97.9 98.3 97.9 Pulse 94 85 80 85 Resp 18 20 B/P (MAP) 153/56 153/56 135/68 (90) 162/87 (112) Pulse Ox 94 97 O2 Delivery Nasal Cannula Nasal Cannula O2 Flow Rate 3.0 3.0 11/14/19 11/14/19 11/14/19 11/14/19 07:00 08:00 08:47 08:47 Temp 97.5 97.5 Pulse 87 87 87 Resp 18 B/P (MAP) 179/80 (113) 179/80 179/80 Pulse Ox 97 O2 Delivery Nasal Cannula Nasal Cannula O2 Flow Rate 3.0 3.0 11/14/19 10:49 Temp 97.0 97.0 Pulse 77 Resp 18 B/P (MAP) 161/71 (101) Pulse Ox 97 O2 Delivery Nasal Cannula O2 Flow Rate 3.0 Intake and Output 11/13/19 11/13/19 11/14/19 15:00 23:00 07:00 Intake Total 350 ml 1024 ml 60 ml Output Total 400 ml 1050 ml Balance -50 ml 1024 ml -990 ml Justicifation of Admission Dx: Justifications for Admission: Justification of Admission Dx: Yes Respiratory Failure: Mechanical Ventilation Altered Mental Status: Altered Mental Status FERNANDO TOSCANO MD Nov 14, 2019 14:17
[2019-11-14 14:46] VITALS: BP 161/74
[2019-11-14] MEDS ORDERED: FUROSEMIDE 40 MG/4 ML VIAL. IVP ONE (15:00)
--- NOTE | 2019-11-14 15:45 | PN ---
DATE: SUBJECTIVE: The patient is resting, slightly propped up in bed, in no apparent distress, awake, alert. On questioning her, denied any complaint; however, the nursing staff states she is not eating or drinking. Unfortunately, her creatinine is going up, likely due to contrast-induced nephropathy. PHYSICAL EXAMINATION: GENERAL: When I examined her this morning, she looked pale, but no jaundice, cyanosis or thyromegaly. No jugular venous distention. No limb edema. VITAL SIGNS: Her heart rate was 77, blood pressure was 161/71, temperature was 97, respiratory rate was 18 and oxygen saturation was 97% on 3 liters of oxygen. HEAD, EYES, EARS, NOSE AND THROAT: Normocephalic, atraumatic. NECK: Supple. CARDIAC: Normal first and second heart sounds. No gallop, rub or murmur. CHEST: Clear to auscultation. No crepitation or rhonchi. ABDOMEN: Distended, soft, nontender. NEUROLOGIC: She is awake, alert, responding appropriately. All cranial nerves intact. She moves extremities without difficulty. She is mostly bedbound. Her intake was 1648, output was 1500. LABORATORY DATA: As of this morning, her serum sodium was 136, potassium 3.6, chloride 100, bicarbonate 25, anion gap of 11, BUN 58, creatinine 1.7, estimated GFR was 29 mL per minute. Her glucose 178, calcium was 8.6. Her white cell count was 15,700, hemoglobin 8.7, hematocrit 25.8, MCV 91, and platelet count of 349,000. ASSESSMENT: 1. Acute respiratory failure secondary to aspiration pneumonia, for which she was intubated and mechanically ventilated; however, she was successfully extubated on 11/05/2019. 2. Flash pulmonary edema due to accelerated hypertension, post-extubation has improved. 3. Accelerated hypertension for which she was on Cardene drip. She is now on metoprolol succinate 50 mg once a day. 4. New onset tonic-clonic seizures for which she is currently on Keppra 500 mg twice a day. No further seizures were documented. 5. Hypokalemia, resolved. Her most recent serum potassium is 3.9 mEq per liter. 6. Mild elevated troponin, felt to be secondary to demand ischemia. 7. [place] systolic and diastolic congestive heart failure. Left ventricular systolic function is severely impaired and ejection fraction of only 25%; however, cardiac catheterization showed no significant coronary artery disease. 8. Anemia without any obvious site of bleeding. 9. Her MRI showed signal abnormalities within the posterior temporoparietal and occipital subcortical white matter that may represent posterior reversible encephalopathy syndrome. 10. The patient has severe protein-calorie malnutrition with serum albumin is only 2.2 g/dL. 11. Dysphagia and poor oral intake for which she is on TPN. 12. Acute on chronic kidney injury, likely due to contrast-induced nephropathy. PLAN: Continue with Keppra for seizure disorder. Continue with metoprolol to control blood pressure. Continue with furosemide for acute on chronic systolic congestive heart failure. Continue with Zosyn and vancomycin for aspiration pneumonia. Apparently, we would like to transfer her to [facility], but the insurance has denied her. We will arrange for . FINESSE GEORGES MD DR: IRISH/shubham JOB#: [id number] / [id number]
[2019-11-14 19:30] VITALS: BP 143/65
[2019-11-14] MEDS: LATANOPROST 0.005% OPHTH SOLUTION 2.5ML BOTTLE. OU SCH (21:06)
[2019-11-14] MEDS: ATORVASTATIN CALCIUM 10 MG TABLET. PO SCH (21:06)
[2019-11-14 22:20] VITALS: BP 155/79
[2019-11-15 02:39] VITALS: BP 174/76
[2019-11-15 04:52] LABS: CREATININE 1.4 mg/dL (0.6-1.0); GFR 36.2; MAGNESIUM 1.7 mg/dL (1.8-2.4); POTASSIUM 3.2 mmol/L (3.5-5.1)
[2019-11-15] MEDS: AMINO AC 3%/ELECTROLYTE/GLYCER 1,000 ML IV SCH ×2 (05:08→20:23)
[2019-11-15] MEDS: PIPERACILLIN/TAZOBACTAM 3.375 GM in IV NORMAL SALINE 50ML 50 ML IV SCH ×3 (05:09→17:22)
[2019-11-15 07:00] VITALS: BP 171/88
--- NOTE | 2019-11-15 08:58 | PDOC ---
PULMONARY PROGRESS NOTES Subjective Extubated 11/04 Patient does not feel well weak and short of air Vitals Vital Signs Date Time Temp Pulse Resp B/P (MAP) Pulse Ox O2 Delivery O2 Flow Rate FiO2 11/15/19 07:00 97.6 83 18 171/88 (115) 99 Nasal Cannula 2.0 97.6 ROS: No Nausea, No Chest Pain, No Abdominal Pain, No Increase Cough General: Alert Lungs: Clear Cardiovascular: S1 Abdomen: Soft Neuro Exam: Alert Extremities: No Edema Skin: Warm Labs Laboratory Tests Test 11/13/19 11:34 11/13/19 16:40 11/13/19 17:38 11/14/19 00:11 Glucose (Fingerstick) 353 mg/dL (70-99) 206 mg/dL (70-99) 165 mg/dL (70-99) Random Vancomycin Level 18.3 mcg/mL Test 11/14/19 05:49 11/14/19 06:45 11/14/19 12:14 11/14/19 17:58 Glucose (Fingerstick) 173 mg/dL (70-99) 180 mg/dL (70-99) 223 mg/dL (70-99) White Blood Count 15.7 x10^3/uL (4.0-11.0) Red Blood Count 2.84 x10^6/uL (3.50-5.40) Hemoglobin 8.7 g/dL (12.0-15.5) Hematocrit 25.8 % (36.0-47.0) Mean Corpuscular Volume 91 fL (79-100) Mean Corpuscular Hemoglobin 31 pg (25-35) Mean Corpuscular Hemoglobin Concent 34 g/dL (31-37) Red Cell Distribution Width 17.3 % (11.5-14.5) Platelet Count 349 x10^3/uL (140-400) Sodium Level 136 mmol/L (136-145) Potassium Level 3.6 mmol/L (3.5-5.1) Chloride Level 100 mmol/L (98-107) Carbon Dioxide Level 25 mmol/L (21-32) Anion Gap 11 (6-14) Blood Urea Nitrogen 58 mg/dL (7-20) Creatinine 1.7 mg/dL (0.6-1.0) Estimated GFR (Cockcroft-Gault) 28.9 Glucose Level 178 mg/dL (70-99) Calcium Level 8.6 mg/dL (8.5-10.1) Test 11/14/19 20:21 11/15/19 04:20 11/15/19 07:43 Glucose (Fingerstick) 178 mg/dL (70-99) 188 mg/dL (70-99) Sodium Level 137 mmol/L (136-145) Potassium Level 3.2 mmol/L (3.5-5.1) Chloride Level 101 mmol/L (98-107) Carbon Dioxide Level 26 mmol/L (21-32) Anion Gap 10 (6-14) Blood Urea Nitrogen 55 mg/dL (7-20) Creatinine 1.4 mg/dL (0.6-1.0) Estimated GFR (Cockcroft-Gault) 36.2 Glucose Level 189 mg/dL (70-99) Calcium Level 9.0 mg/dL (8.5-10.1) Magnesium Level 1.7 mg/dL (1.8-2.4) Laboratory Tests Test 11/14/19 12:14 11/14/19 17:58 11/14/19 20:21 11/15/19 04:20 Glucose (Fingerstick) 180 mg/dL (70-99) 223 mg/dL (70-99) 178 mg/dL (70-99) Sodium Level 137 mmol/L (136-145) Potassium Level 3.2 mmol/L (3.5-5.1) Chloride Level 101 mmol/L (98-107) Carbon Dioxide Level 26 mmol/L (21-32) Anion Gap 10 (6-14) Blood Urea Nitrogen 55 mg/dL (7-20) Creatinine 1.4 mg/dL (0.6-1.0) Estimated GFR (Cockcroft-Gault) 36.2 Glucose Level 189 mg/dL (70-99) Calcium Level 9.0 mg/dL (8.5-10.1) Magnesium Level 1.7 mg/dL (1.8-2.4) Test 11/15/19 07:43 Glucose (Fingerstick) 188 mg/dL (70-99) Medications Active Scripts Medications Dose Route/Sig Max Daily Dose Days Date Category Dose Instructions Januvia (Sitagliptin Phosphate) 100 Mg Tablet 1 Tab PO DAILY 11/02/19 Reported Pantoprazole Sodium (Pantoprazole Sodium) 40 Mg Tablet.dr 20 Mg PO DAILYAC 11/02/19 Reported Glimepiride 1 Mg Tablet 1 Tab PO DAILY 11/02/19 Reported Hydrocodone-Apap 5-325 (Hydrocodone Bit/Acetaminophen) 1 Tab Tablet 1 Tab PO PRN Q6HRS PRN 11/02/19 Reported Lisinopril 10 Mg Tablet 1 Tab PO DAILY 11/02/19 Reported Acetaminophen 500 Mg Tablet 1 Tab PO BID 11/30/18 Reported Trazodone Hcl 50 Mg Tablet 0.5 Tab PO QHS 11/30/18 Reported Omeprazole 20 Mg Capsule. 1 Cap PO DAILY 11/30/18 Reported Novolog (Insulin Aspart) 100 Unit/1 Ml Cartridge 100 Unit SQ QIDACHS 11/30/18 Reported Naproxen 500 Mg Tablet 1 Tab PO PRN Q8HRS PRN 11/30/18 Reported Lidocaine PATCH (Lidocaine) 1 Each Adh..patch 1 Each TP DAILY 11/30/18 Reported REMOVE AFTER 12 HOURS Latanoprost 2.5 Ml Drops 1 Drop EACHEYE QHS 11/30/18 Reported Duoneb 0.5-3(2.5) Mg/3 Ml (Albuterol/Ipratropium) 3 Ml Ampul.neb 3 Ml NEB PRN Q4HRS PRN 11/30/18 Reported Imodium A-D (Loperamide HCl) 2 Mg Capsule 2 Mg PO PRN PRN 11/30/18 Reported Flonase Allergy Relief (Fluticasone Propionate) 9.9 Ml [place].susp 1 Sprays NS PRN Q12HRS PRN 11/30/18 Reported Coreg (Carvedilol) 3.125 Mg Tablet 3.125 Mg PO BIDWMEALS 11/30/18 Reported Chloraseptic (Phenol) 20 Ml [place] 1 [place] MM PRN Q6HRS PRN 11/30/18 Reported Calcium Citrate 250 Mg Tablet 500 Mg PO DAILY 11/30/18 Reported Tylenol (Acetaminophen) 325 Mg Tablet 2 Tab PO PRN Q6HRS PRN 11/30/18 Reported Atorvastatin Calcium 10 Mg Tablet 1 Tab PO QHS 11/30/18 Reported Proair Respiclick (Albuterol Sulfate) 90 Mcg Aer.pow.ba 1 Puff IH PRN Q6HRS PRN 01/18/17 Reported Alendronate Sodium 70 Mg Tablet 1 Tab PO WEEKLY 01/18/17 Reported Citalopram Hbr (Citalopram Hydrobromide) 10 Mg Tablet 1.5 Tab PO DAILY 01/18/17 Reported Cetirizine Hcl 10 Mg Tablet 1 Tab PO DAILY 01/18/17 Reported Guaifenesin 600 Mg Tablet.er 600 Mg PO PRN Q8HRS PRN 01/18/17 Reported Clopidogrel (Clopidogrel Bisulfate) 75 Mg Tablet 1 Tab PO DAILY 01/18/17 Reported Novolog Flexpen (Insulin Aspart) 100 Unit/1 Ml Insuln.pen 0-3 Unit SQ QIDACHS 10/25/19 Reported PATIENT SLIDING SCALE. 70-249= 0 UNITS. 250-400= 3UNITS. BEFORE MEALS AND AT BEDTIME GIVE 3 UNITS IF BLOOD SUGAR 250 OR ABOVE. Diclofenac Sodium 100 Gm Gel..gram. 1 Carlos TP DAILY 10/25/19 Reported D3-50 (Cholecalciferol (Vitamin D3)) 50,000 Unit Capsule 50,000 Unit PO DAILY 10/25/19 Reported Trazodone Hcl 50 Mg Tablet 0.5 Tab PO QHS 10/25/19 Reported Reglan (Metoclopramide Hcl) 5 Mg Tablet 5 Mg PO DAILY 10/25/19 Reported Protonix (Pantoprazole Sodium) 20 Mg Tablet.dr 1 Tab PO DAILY 10/25/19 Reported [place] 5-325 Tablet (Hydrocodone Bit/Acetaminophen) 1 Each Tablet 1 Tab PO Q4HRS 10/25/19 Reported Naproxen 500 Mg Tablet 1 Tab PO Q8HRS 10/25/19 Reported Lisinopril 2.5 Mg Tablet 1 Tab PO DAILY 10/25/19 Reported Lidocaine PATCH (Lidocaine) 1 Each Adh..patch 1 Each TP DAILY 10/25/19 Reported REMOVE AFTER 12 HOURS Lasix (Furosemide) 20 Mg Tablet 1 Tab PO DAILY 30 10/25/19 Reported Duoneb 0.5-3(2.5) Mg/3 Ml (Albuterol/Ipratropium) 3 Ml Ampul.neb 3 Ml NEB QID 10/25/19 Reported Imodium A-D (Loperamide HCl) 2 Mg Capsule 2 Mg PO DAILY 10/25/19 Reported Guaifenesin 400 Mg Tablet 400 Mg PO Q8HRS 10/25/19 Reported Coreg (Carvedilol) 3.125 Mg Tablet 3.125 Mg PO BID 10/25/19 Reported Clopidogrel (Clopidogrel Bisulfate) 75 Mg Tablet 75 Mg PO DAILY 10/25/19 Reported Citalopram Hbr (Citalopram Hydrobromide) 10 Mg Tablet 10 Mg PO DAILY 10/25/19 Reported Atorvastatin Calcium 10 Mg Tablet 10 Mg PO DAILY 10/25/19 Reported Proair Hfa Inhaler (Albuterol Sulfate) 8.5 Gm Hfa.aer.ad 1 Puff INH PRN Q6HRS 10/25/19 Reported Acetaminophen 500 Mg Tablet 1 Tab PO PRN Q6HRS 10/25/19 Reported Glimepiride 1 Mg Tablet 1 Mg PO DAILY 07/05/14 Reported Simvastatin 40 Mg Tablet 40 Mg PO HS 07/05/14 Reported Omeprazole 20 Mg Capsule.dr 20 Mg PO DAILY 07/05/14 Reported Januvia (Sitagliptin Phosphate) 100 Mg Tablet 100 Mg PO DAILY 07/05/14 Reported Comments Chest x-ray 624 improved ECHO <Conclusion> The left ventricular systolic function is severely impaired. The Ejection Fraction is 25%. Transmitral Doppler flow pattern is Grade II-pseudonormal filling dynamics. Mild to moderate mitral regurgitation. Moderate to severe tricuspid regurgitation with an estimated PAP of 83 mmHg. There is severe pulmonary hypertension. There is no evidence of significant pericardial effusion. Impression . IMPRESSION: 1. Acute respiratory failure, multifactorial in etiology. Extubated 11/04 /developed flash pulmonary edema post extubation from hypertensive urgency Rx with lasix/ bipap, --- improving patient set up with home noninvasive ventilation 2. New-onset seizure.-- no further seizures reported 3. Acute diastolic congestive heart failure, rule out myocardial infarction, less likely pneumonia. 4. Abnormal chest x-ray. 5. Electrolyte abnormality. 6. Hypertensive urgency. 7. Diabetes mellitus. 8. COVID-19 Neg 9. Dysphagia 10. cardiomyopathy EF 25% Plan . Patient too sick [facility] transfer to [facility] Insurance declined LTAC, Dr. Winter to perform [id number] Follow cardiology input PRN BiPAP Hemoglobin drop, left heart and right heart catheterization placed on hold Transfuse as needed Continue PPN -- speech following Follow GI recs Cont. ABX PT/OT -- OOB as tolerated D/W CRYS CHUA MD Nov 15, 2019 08:58
[2019-11-15] MEDS: LANSOPRAZOLE 30 MG TAB.RAP.DR PO SCH (09:24)
[2019-11-15] MEDS: POTASSIUM BICARB 20 MEQ EFFERVESCENT TABLET. PEG SCH (09:24)
[2019-11-15] MEDS: LACTOBACILLUS RHAMNOSUS GG 1 CAPSULE. PO SCH ×2 (09:24→20:22)
[2019-11-15] MEDS: SERTRALINE 50 MG TABLET. PO SCH (09:24)
[2019-11-15] MEDS: METOPROLOL TART IMMED RELEASE 50 MG TABLET. PO SCH ×2 (09:24→20:22)
[2019-11-15] MEDS: CETIRIZINE HCL 10 MG TABLET. PO SCH (09:24)
[2019-11-15] MEDS: levETIRAcetam 500 MG TABLET PO SCH ×2 (09:25→20:23)
[2019-11-15] MEDS: SACUBITRIL/VALSARTAN 24/26MG TABLET. PO SCH ×2 (09:25→20:21)
[2019-11-15] MEDS: hydrALAZINE 25 MG TABLET PO SCH ×3 (09:25→20:22)
[2019-11-15] MEDS: FUROSEMIDE 40 MG/4 ML VIAL. IVP SCH (09:25)
[2019-11-15] MEDS: CLOPIDOGREL BISULFATE 75 MG TABLET PO SCH (09:25)
[2019-11-15] MEDS: CYANOCOBALAMIN (VITAMIN B-12) 1,000 MCG/ML VIAL IM SCH (09:25)
[2019-11-15] MEDS: INSULIN LISPRO 300 UNITS/3 ML VIAL. SQ SCH ×4 (09:28→23:58)
--- NOTE | 2019-11-15 10:40 | PN ---
DATE: 11/15/2019 SUBJECTIVE: The patient is resting, slightly propped up, sleeping comfortably. On questioning her, she denied any complaint. The nursing staff did not voice any concern except the patient continued to refuse to eat. PHYSICAL EXAMINATION: GENERAL: When I examined her, she looked pale, no jaundice, cyanosis or thyromegaly. No jugular venous distention. No limb edema. VITAL SIGNS: Her heart rate was 83, blood pressure was 171/88, temperature 97.6, respiratory rate was 18 and oxygen saturation was 99% on 2 liters of oxygen. HEAD, EYES, EARS, NOSE AND THROAT: Showed normocephalic, atraumatic. NECK: Supple. HEART: Showed normal first and second heart sounds. No gallop, rub or murmur. CHEST: Clear to auscultation. No crepitation or rhonchi. ABDOMEN: Distended, soft, nontender. NEUROLOGIC: She was sleepy, but arousable. She is demented, but without any obvious lateralizing sign. Her intake over the last 24 hours was 1434, output was 1450. LABORATORY DATA: As of this morning, her serum sodium was 137, potassium 3.2, chloride 101, bicarbonate 26, anion gap of 10, BUN 55, creatinine 1.4, estimated GFR was 36 mL per minute. Her glucose 189, calcium was 9, magnesium was 1.7. Her white cell count was 15,700, hemoglobin 8.7, hematocrit 25.8, MCV 91 and platelet count 349,000. Her KUB showed nonobstructive, nonspecific bowel gas pattern and her chest x-ray done yesterday showed stable chest x-ray with persistent airspace infiltrate, vascular congestion and left basilar effusion and dense consolidation at the left base. Findings may relate to congestive heart failure with or without superimposed infection. ASSESSMENT: 1. Acute respiratory failure secondary to aspiration pneumonia, for which she was intubated and mechanically ventilated; however, she was successfully extubated on 11/05/2019. 2. Flash pulmonary edema due to accelerated hypertension post-extubation, has improved. 3. Accelerated hypertension for which she was on a Cardene drip. She is now on metoprolol succinate 50 mg once a day. Her blood pressure is reasonably although not optimally controlled. 4. New-onset tonic-clonic seizure for which she is currently on Keppra 500 mg twice a day. No further seizures were documented. 5. Hypokalemia continues to be an issue. Her most recent serum potassium is down to 3.2 mEq per liter. 6. Mildly elevated troponin, felt to be secondary to demand ischemia. 7. Acute on chronic systolic and diastolic congestive heart failure. Her left ventricular systolic function is severely impaired with ejection fraction of only 25%. However, cardiac catheterization showed no significant coronary artery disease. 8. Anemia without any obvious active bleeding. 9. Her MRI showed signal abnormality within the posterior temporoparietal and occipital subcortical white matter that may represents a posterior reversible encephalopathy syndrome. 10. The patient has severe protein-calorie malnutrition with serum albumin is only 2.2 g/dL. 11. Dysphagia and poor oral intake for which she is on TPN. 12. Acute on chronic kidney injury, likely due to contrast-induced nephropathy, improving. Her creatinine came down from 1.7 to 1.2. PLAN: To continue with Keppra for seizure disorder. Continue with metoprolol to control the blood pressure. Continue with furosemide for acute on chronic systolic congestive heart failure. Continue with Zosyn and vancomycin for aspiration pneumonia. Given her poor oral intake, consult with the Gastroenterology team as well as talk to the family regarding feeding tube placement and unfortunately I missed the call from the insurance company yesterday for peer to peer review as she probably qualifies to be transferred to [facility]. FINESSE GEORGES MD DR: IRISH/shubham JOB#: [id number] / [id number]
[2019-11-15 10:56] VITALS: BP 157/69
--- NOTE | 2019-11-15 13:03 | PDOC ---
PROGRESS NOTES Subjective Subjective Resting comfortably. Continues to refuse to eat per nursing Objective Objective Vital Signs Date Time Temp Pulse Resp B/P (MAP) Pulse Ox O2 Delivery O2 Flow Rate FiO2 11/15/19 10:56 98.2 74 16 157/69 (98) 93 Nasal Cannula 3.0 98.2 Intake and Output 11/15/19 06:59 Intake Total 80 ml Output Total 4050 ml Balance -3970 ml Intake Oral 80 ml Output Urine Total 4050 ml # Bowel Movements 7 Physical Exam Abdomen: Normal bowel sounds Heart: Regular rate Extremities: No clubbing General: mild distress HEENT: Atraumatic Lungs: Other (Mildly decreased breath sounds) Neck: Supple Psych/Mental Status: Mood NL Skin: No breakdown Assessment Assessment 1. Accelerated hypertension: Better controlled 2. New onset seizure disorder with encephalopathy: on keppra, continue treatment per neurology. 3. Acute respiratory failure, multifactorial: s/p intubation, treat per pulmonary team. COVID test negative 4. Acute on chronic diastolic/systolic heart failure: better compensated. LVEF 25% with severe pulmonary hypertension. 5. Mild troponin elevation: type 2. Continue medical management. 6. Paroxysmal Torsades: No further episodes on telemetry. Continue beta- blockers. 7. Asymptomatic SB: lowest 50s. none further, no pauses 8. Normocytic anemia with hx of MGUS: post transfusion. 9. Protein malnutrition Possible transfer to [facility] on Monday Comment Review of Relevant I have reviewed the following items regina (where applicable) has been applied. Labs Laboratory Tests Test 11/14/19 17:58 11/14/19 20:21 11/15/19 04:20 11/15/19 07:43 Glucose (Fingerstick) 223 mg/dL (70-99) 178 mg/dL (70-99) 188 mg/dL (70-99) Sodium Level 137 mmol/L (136-145) Potassium Level 3.2 mmol/L (3.5-5.1) Chloride Level 101 mmol/L (98-107) Carbon Dioxide Level 26 mmol/L (21-32) Anion Gap 10 (6-14) Blood Urea Nitrogen 55 mg/dL (7-20) Creatinine 1.4 mg/dL (0.6-1.0) Estimated GFR (Cockcroft-Gault) 36.2 Glucose Level 189 mg/dL (70-99) Calcium Level 9.0 mg/dL (8.5-10.1) Magnesium Level 1.7 mg/dL (1.8-2.4) Test 11/15/19 11:44 Glucose (Fingerstick) 174 mg/dL (70-99) Medications Current Medications Furosemide (Lasix) 40 mg 1X ONCE IVP Last administered on 11/14/19at 15:31; Start 11/14/19 at 15:00; Stop 11/14/19 at 15:01; Status DC Hydralazine HCl (Apresoline) 25 mg TID PO Last administered on 11/15/19at 09:25; Start 11/14/19 at 14:00 Potassium Bicarbonate (Potassium Effervescent Tablet) 20 meq DAILY PEG Last administered on 11/15/19at 09:24; Start 11/15/19 at 09:00 Vitals/I & O Vital Sign - Last 24 Hours 11/14/19 11/14/19 11/14/19 11/14/19 14:11 14:46 19:30 20:00 Temp 97.6 97.8 97.6 97.8 Pulse 77 85 79 Resp 16 16 B/P (MAP) 161/71 161/74 (103) 143/65 (91) Pulse Ox 97 98 O2 Delivery Nasal Cannula Nasal Cannula Nasal Cannula O2 Flow Rate 3.0 3.0 2.0 11/14/19 11/14/19 11/14/19 11/14/19 21:06 21:07 21:07 22:20 Temp 98.0 98.0 Pulse 79 79 79 77 Resp 18 B/P (MAP) 143/65 143/65 143/65 155/79 (104) Pulse Ox 100 O2 Delivery Nasal Cannula O2 Flow Rate 3.0 11/15/19 11/15/19 11/15/19 11/15/19 02:39 07:00 08:00 09:24 Temp 97.5 97.6 97.5 97.6 Pulse 69 83 83 Resp 16 18 B/P (MAP) 174/76 (108) 171/88 (115) 171/88 Pulse Ox 100 99 O2 Delivery Nasal Cannula Nasal Cannula Nasal Cannula O2 Flow Rate 3.0 2.0 3.0 11/15/19 11/15/19 11/15/19 09:25 09:25 10:56 Temp 98.2 98.2 Pulse 83 83 74 Resp 16 B/P (MAP) 171/88 171/88 157/69 (98) Pulse Ox 93 O2 Delivery Nasal Cannula O2 Flow Rate 3.0 Intake and Output 11/14/19 11/14/19 11/15/19 14:59 22:59 06:59 Intake Total 0 ml 0 ml 80 ml Output Total 1200 ml 1350 ml 1500 ml Balance -1200 ml -1350 ml -1420 ml ASHELY SANCHES MD Nov 15, 2019 13:03
--- NOTE | 2019-11-15 13:47 | PDOC ---
G I PROGRESS NOTE Reason for Follow-up Failure to thrive Subjective No new complaints Physical Exam Lungs clear CV S1 S2 ABD +BS, soft, nontender Review of Relevant I have reviewed the following items regina (where applicable) has been applied. Labs Laboratory Tests Test 11/13/19 16:40 11/13/19 17:38 11/14/19 00:11 11/14/19 05:49 Random Vancomycin Level 18.3 mcg/mL Glucose (Fingerstick) 206 mg/dL (70-99) 165 mg/dL (70-99) 173 mg/dL (70-99) Test 11/14/19 06:45 11/14/19 12:14 11/14/19 17:58 11/14/19 20:21 White Blood Count 15.7 x10^3/uL (4.0-11.0) Red Blood Count 2.84 x10^6/uL (3.50-5.40) Hemoglobin 8.7 g/dL (12.0-15.5) Hematocrit 25.8 % (36.0-47.0) Mean Corpuscular Volume 91 fL (79-100) Mean Corpuscular Hemoglobin 31 pg (25-35) Mean Corpuscular Hemoglobin Concent 34 g/dL (31-37) Red Cell Distribution Width 17.3 % (11.5-14.5) Platelet Count 349 x10^3/uL (140-400) Sodium Level 136 mmol/L (136-145) Potassium Level 3.6 mmol/L (3.5-5.1) Chloride Level 100 mmol/L (98-107) Carbon Dioxide Level 25 mmol/L (21-32) Anion Gap 11 (6-14) Blood Urea Nitrogen 58 mg/dL (-20) Creatinine 1.7 mg/dL (0.6-1.0) Estimated GFR (Cockcroft-Gault) 28.9 Glucose Level 178 mg/dL (70-99) Calcium Level 8.6 mg/dL (8.5-10.1) Glucose (Fingerstick) 180 mg/dL (70-99) 223 mg/dL (70-99) 178 mg/dL (70-99) Test 11/15/19 04:20 11/15/19 07:43 11/15/19 11:44 Sodium Level 137 mmol/L (136-145) Potassium Level 3.2 mmol/L (3.5-5.1) Chloride Level 101 mmol/L (98-107) Carbon Dioxide Level 26 mmol/L (21-32) Anion Gap 10 (6-14) Blood Urea Nitrogen 55 mg/dL (7-20) Creatinine 1.4 mg/dL (0.6-1.0) Estimated GFR (Cockcroft-Gault) 36.2 Glucose Level 189 mg/dL (70-99) Calcium Level 9.0 mg/dL (8.5-10.1) Magnesium Level 1.7 mg/dL (1.8-2.4) Glucose (Fingerstick) 188 mg/dL (70-99) 174 mg/dL (70-99) Laboratory Tests Test 11/14/19 17:58 11/14/19 20:21 11/15/19 04:20 11/15/19 07:43 Glucose (Fingerstick) 223 mg/dL (70-99) 178 mg/dL (70-99) 188 mg/dL (70-99) Sodium Level 137 mmol/L (136-145) Potassium Level 3.2 mmol/L (3.5-5.1) Chloride Level 101 mmol/L (98-107) Carbon Dioxide Level 26 mmol/L (21-32) Anion Gap 10 (6-14) Blood Urea Nitrogen 55 mg/dL (7-20) Creatinine 1.4 mg/dL (0.6-1.0) Estimated GFR (Cockcroft-Gault) 36.2 Glucose Level 189 mg/dL (70-99) Calcium Level 9.0 mg/dL (8.5-10.1) Magnesium Level 1.7 mg/dL (1.8-2.4) Test 11/15/19 11:44 Glucose (Fingerstick) 174 mg/dL (70-99) Medications Current Medications Fentanyl Citrate 30 ml @ 0 mls/hr CONT PRN IV SEE PROTOCOL; Start 11/02/19 at 02:45; Status Cancel Propofol 100 ml @ 0 mls/hr CONT PRN IV SEE PROTOCOL; Start 11/02/19 at 02:45; Status Cancel Fentanyl Citrate (Fentanyl 2ml Vial) 25 mcg PRN Q1HR PRN IV SEE COMMENTS; Start 11/02/19 at 02:45; Status Cancel Fentanyl Citrate (Fentanyl 2ml Vial) 50 mcg PRN Q1HR PRN IV SEE COMMENTS; Start 11/02/19 at 02:45; Status Cancel Chlorhexidine Gluconate (Peridex) 15 ml BID MM ; Start 11/02/19 at 09:00; Status Cancel Morphine Sulfate (Morphine Sulfate) 2 mg PRN Q1HR PRN IV SEE COMMENTS.; Start 11/02/19 at 02:45; Status Cancel Morphine Sulfate (Morphine Sulfate) 4 mg PRN Q1HR PRN IV SEE COMMENTS.; Start 11/02/19 at 02:45; Status Cancel Midazolam HCl 100 ml @ 0 mls/hr CONT PRN IV SEE PROTOCOL; Start 11/02/19 at 02:45; Status Cancel Diphenhydramine HCl (Benadryl) 25 mg PRN Q15MIN PRN IVP EPS Symptoms; Start 11/02/19 at 02:45; Status Cancel Nicardipine HCl 50 mg/Sodium Chloride 250 ml @ 25 mls/hr CONT PRN IV SEE I/O RECORD Last administered on 11/02/19at 16:45; Start 11/02/19 at 03:15 Propofol 100 ml @ As Directed STK-MED ONCE IV ; Start 11/02/19 at 02:49; Stop 11/02/19 at 03:22; Status DC Propofol 100 ml @ 0 mls/hr CONT PRN IV SEE PROTOCOL Last administered on 11/03/19at 11:18; Start 11/02/19 at 03:30; Stop 11/03/19 at 13:54; Status DC Fentanyl Citrate (Fentanyl 2ml Vial) 25 mcg PRN Q1HR PRN IV SEE COMMENTS; Start 11/02/19 at 03:30; Stop 11/06/19 at 10:08; Status DC Fentanyl Citrate (Fentanyl 2ml Vial) 50 mcg PRN Q1HR PRN IV SEE COMMENTS; Start 11/02/19 at 03:30; Stop 11/06/19 at 10:08; Status DC Chlorhexidine Gluconate (Peridex) 15 ml BID MM Last administered on 11/05/19at 08:54; Start 11/02/19 at 09:00; Stop 11/06/19 at 10:08; Status DC Famotidine (Pepcid Vial) 20 mg DAILY IVP Last administered on 11/07/19at 08:39; Start 11/02/19 at 09:00; Stop 11/08/19 at 09:56; Status DC Morphine Sulfate (Morphine Sulfate) 2 mg PRN Q1HR PRN IV SEE COMMENTS. Last administered on 11/04/19at 17:55; Start 11/02/19 at 03:30 Morphine Sulfate (Morphine Sulfate) 4 mg PRN Q1HR PRN IV SEE COMMENTS. Last administered on 11/07/19 05:18; Start 11/02/19 at 03:30 Potassium Bicarbonate (Potassium Effervescent Tablet) 40 meq 1X ONCE PEG Last administered on 11/02/19 08:38; Start 11/02/19 at 07:30; Stop 11/02/19 at 07:31; Status DC Potassium Bicarbonate (Potassium Effervescent Tablet) 40 meq 1X ONCE PEG Last administered on 11/02/19 10:02; Start 11/02/19 at 08:00; Stop 11/02/19 at 08:01; Status DC Potassium Bicarbonate (Potassium Effervescent Tablet) 40 meq 1X ONCE PEG Last administered on 11/02/19at 10:41; Start 11/02/19 at 09:00; Stop 11/02/19 at 09:01; Status DC Magnesium Sulfate 50 ml @ 25 mls/hr 1X ONCE IV Last administered on 11/02/19at 08:37; Start 11/02/19 at 07:30; Stop 11/02/19 at 09:29; Status DC Famotidine (Pepcid Vial) 20 mg DAILY IVP ; Start 11/02/19 at 09:00; Status UNV Ceftriaxone Sodium (Rocephin) 1 gm Q24H IVP Last administered on 11/04/19at 08:46; Start 11/02/19 at 09:00; Stop 11/04/19 at 15:04; Status DC Levetiracetam 1000 mg/Dextrose 110 ml @ 440 mls/hr Q12HR IV Last administered on 11/03/19at 09:13; Start 11/02/19 at 11:00; Stop 11/03/19 at 09:32; Status DC Acetaminophen (Tylenol) 650 mg PRN Q6HRS PRN PO PAIN Last administered on 11/11/19at 20:36; Start 11/02/19 at 10:15 Atorvastatin Calcium (Lipitor) 10 mg QHS PO Last administered on 11/14/19 21:06; Start 11/02/19 at 21:00 Carvedilol (Coreg) 3.125 mg BIDWMEALS PO Last administered on 11/03/19 08:02; Start 11/02/19 at 11:00; Stop 11/07/19 at 12:02; Status DC Cetirizine HCl (ZyrTEC) 10 mg DAILY PO Last administered on 11/15/19 09:24; Start 11/02/19 at 11:00 Citalopram Hydrobromide (CeleXA) 15 mg DAILY PO Last administered on 11/03/19 09:14; Start 11/02/19 at 11:00; Stop 11/03/19 at 13:50; Status DC Clopidogrel Bisulfate (Plavix) 75 mg DAILY PO Last administered on 11/05/19at 08:53; Start 11/02/19 at 11:00; Stop 11/05/19 at 15:30; Status DC Diclofenac Sodium (Voltaren) 1 carlos BID PRN TP BREAKTHROUGH PAIN; Start 11/02/19 at 10:15 Furosemide (Lasix) 20 mg QEVNG PO Last administered on 11/04/19at 17:54; Start 11/02/19 at 18:00; Stop 11/07/19 at 11:59; Status DC Furosemide (Lasix) 40 mg QAM PO Last administered on 11/05/19at 08:54; Start 11/02/19 at 11:00; Stop 11/07/19 at 11:59; Status DC Albuterol Sulfate (Ventolin Neb Soln) 2.5 mg PRN Q4HRS PRN NEB SHORTNESS OF BREATH Last administered on 11/07/19at 20:16; Start 11/02/19 at 10:30 Latanoprost (Xalatan) 1 drop QHS OU Last administered on 11/14/19 21:06; Start 11/02/19 at 21:00 Lidocaine (Lidoderm) 1 patch PRN DAILY PRN TP PAIN; Start 11/02/19 at 09:00 Pantoprazole Sodium (Protonix) 20 mg DAILYAC PO ; Start 11/03/19 at 07:30; Status UNV Phenol (Chloraseptic) 1 spray PRN Q6HRS PRN MM SORE THROAT; Start 11/02/19 at 10:15 Piperacillin Sod/ Tazobactam Sod 3.375 gm/Sodium Chloride 50 ml @ 100 mls/hr Q6HRS IV Last administered on 11/15/19at 12:22; Start 11/02/19 at 11:00 Vancomycin HCl (Vanco Per Pharmacy) 1 each PRN DAILY PRN MC SEE COMMENTS Last administered on 11/13/19at 19:04; Start 11/02/19 at 10:30 Vancomycin HCl 1 gm/Sodium Chloride 250 ml @ 250 mls/hr Q24H IV Last administered on 11/03/19at 22:57; Start 11/02/19 at 22:00; Stop 11/04/19 at 07:00; Status DC Vancomycin HCl (Vancomycin Trough Level) 1 each 1X ONCE MC Last administered on 11/03/19at 21:30; Start 11/03/19 at 21:30; Stop 11/03/19 at 21:31; Status DC Levetiracetam 500 mg/Dextrose 105 ml @ 420 mls/hr Q12HR IV Last administered on 11/07/19at 08:38; Start 11/03/19 at 21:00; Stop 11/07/19 at 13:16; Status DC Magnesium Sulfate 50 ml @ 25 mls/hr 1X ONCE IV Last administered on 11/03/19at 13:33; Start 11/03/19 at 12:00; Stop 11/03/19 at 13:59; Status DC Sertraline HCl (Zoloft) 50 mg DAILY PO Last administered on 11/15/19at 09:24; Start 11/04/19 at 09:00 Losartan Potassium (Cozaar) 25 mg DAILY NG Last administered on 11/05/19at 08:54; Start 11/03/19 at 14:00; Stop 11/05/19 at 09:40; Status DC Dexmedetomidine HCl 400 mcg/ Sodium Chloride 100 ml @ 0 mls/hr CONT PRN IV PER PROTOCOL Last administered on 11/05/19at 02:05; Start 11/03/19 at 14:00; Stop 11/06/19 at 10:08; Status DC Sodium Chloride 500 ml @ 500 mls/hr 1X PRN PRN IV SEE COMMENTS; Start 11/03/19 at 14:00 Atropine Sulfate (ATROPINE 0.5mg SYRINGE) 0.5 mg PRN Q5MIN PRN IV SEE COMMENTS; Start 11/03/19 at 14:00; Stop 11/07/19 at 12:28; Status DC Vancomycin HCl 1 gm/Sodium Chloride 250 ml @ 250 mls/hr Q18H IV Last administered on 11/11/19at 10:51; Start 11/04/19 at 17:00; Stop 11/12/19 at 06:10; Status DC Vancomycin HCl (Vancomycin Trough Level) 1 each 1X ONCE MC Last administered on 11/06/19at 04:30; Start 11/06/19 at 04:30; Stop 11/06/19 at 04:31; Status DC Losartan Potassium (Cozaar) 50 mg DAILY NG Last administered on 11/08/19at 11:05; Start 11/05/19 at 09:45; Stop 11/08/19 at 14:57; Status DC Epinephrine (S2 Racepinephrine) 0.5 ml 1X ONCE NEB Last administered on 11/05/19at 12:00; Start 11/05/19 at 12:00; Stop 11/05/19 at 12:01; Status DC Methylprednisolone Sodium Succinate (SOLU-Medrol 125MG VIAL) 100 mg 1X ONCE IV Last administered on 11/05/19at 12:15; Start 11/05/19 at 12:00; Stop 11/05/19 at 12:01; Status DC Furosemide (Lasix) 20 mg 1X STAT IVP Last administered on 11/05/19at 12:14; Start 11/05/19 at 12:08; Stop 11/05/19 at 12:12; Status DC Furosemide (Lasix) 20 mg 1X ONCE IVP Last administered on 11/05/19at 14:26; Start 11/05/19 at 14:15; Stop 11/05/19 at 14:16; Status DC Clopidogrel Bisulfate (Plavix) 75 mg DAILY PO Last administered on 11/15/19at 09:25; Start 11/07/19 at 11:00 Metoprolol Tartrate (Lopressor Vial) 5 mg ONCE ONCE IVP Last administered on 11/05/19at 23:56; Start 11/06/19 at 00:00; Stop 11/06/19 at 00:01; Status DC Potassium Chloride (Klor-Con) 40 meq 1X PRN PRN PO PER PROTOCOL; Start 11/05/19 at 23:45 Potassium Bicarbonate (Potassium Effervescent Tablet) 40 meq 1X PRN PRN PO PER PROTOCOL; Start 11/05/19 at 23:45 Potassium Chloride/Water 100 ml @ 100 mls/hr PRN Q1HR PRN IV PER PROTOCOL Last administered on 11/06/19at 06:03; Start 11/05/19 at 23:45; Stop 11/06/19 at 06:11; Status DC Potassium Chloride/Water 100 ml @ 100 mls/hr PRN Q1HR PRN IV PER PROTOCOL; Start 11/05/19 at 23:45 Potassium Chloride (Klor-Con) 40 meq PRN Q2HRS PRN PO PER PROTOCOL; Start 11/05/19 at 23:45 Potassium Chloride/Water 100 ml @ 100 mls/hr PRN Q1HR PRN IV PER PROTOCOL; Start 11/05/19 at 23:45 Potassium Chloride/Water 100 ml @ 100 mls/hr PRN Q1HR PRN IV PER PROTOCOL; Start 11/05/19 at 23:45; Stop 11/06/19 at 07:44; Status DC Potassium Chloride (Klor-Con) 40 meq PRN Q2HRS PRN PO PER PROTOCOL; Start 11/05/19 at 23:45 Potassium Chloride/Water 100 ml @ 100 mls/hr PRN Q1HR PRN IV PER PROTOCOL; Start 11/05/19 at 23:45 Potassium Chloride/Water 100 ml @ 100 mls/hr PRN Q1HR PRN IV PER PROTOCOL; Start 11/06/19 at 00:01; Stop 11/06/19 at 07:44; Status DC Magnesium Sulfate 100 ml @ 50 mls/hr PRN DAILY PRN IV PER PROTOCOL; Start 11/06/19 at 00:00 Potassium Phos/ Sodium Phos (Phos-Nak) 1 pkt PRN BID PRN PO PER PROTOCOL; Start 11/06/19 at 09:00 Sodium Phosphate 40 mmol/Sodium Chloride 263.3333 ml @ 62.5 mls/hr 1X PRN PRN IV PER PROTOCOL; Start 11/05/19 at 23:45 Potassium Phosphate 13.6 mmol/Sodium Chloride 254.5333 ml @ 62.5 mls/hr PRN Q4HRS PRN IV PER PROTOCOL; Start 11/05/19 at 23:45 Magnesium Sulfate 50 ml @ 25 mls/hr 1X ONCE IV Last administered on 11/06/19at 00:31; Start 11/06/19 at 01:00; Stop 11/06/19 at 02:59; Status DC Metoprolol Tartrate (Lopressor Vial) 5 mg 1X ONCE IVP Last administered on 11/06/19at 01:52; Start 11/06/19 at 02:00; Stop 11/06/19 at 02:01; Status DC Miscellaneous (Lidoderm Patch Removal) 1 ea PRN QHS PRN MC SEE COMMENTS; Start 11/06/19 at 08:00 Metoprolol Tartrate (Lopressor Vial) 5 mg Q6HRS IVP Last administered on 11/07/19at 05:21; Start 11/06/19 at 12:00; Stop 11/07/19 at 11:59; Status DC Cyanocobalamin (Vitamin B-12) 1,000 mcg DAILY IM Last administered on 11/15/19at 09:25; Start 11/06/19 at 14:30 Furosemide (Lasix) 40 mg 1X ONCE IVP Last administered on 11/06/19at 17:35; Start 11/06/19 at 17:30; Stop 11/06/19 at 17:31; Status DC Amino Acids/ Glycerin/ Electrolytes 1,000 ml @ 80 mls/hr [id number] IV Last administered on 11/15/19at 05:08; Start 11/07/19 at 10:15 Metoprolol Succinate (Toprol Xl) 50 mg DAILY PO Last administered on 11/13/19at 07:40; Start 11/08/19 at 09:00; Stop 11/13/19 at 11:49; Status DC Furosemide (Lasix) 40 mg DAILY PO Last administered on 11/13/19at 07:41; Start 11/08/19 at 09:00; Stop 11/13/19 at 08:19; Status DC Lactobacillus Rhamnosus (Culturelle) 1 cap BID PO Last administered on 11/15/19at 09:24; Start 11/07/19 at 21:00 Levetiracetam (Keppra) 500 mg BID PO Last administered on 11/15/19at 09:25; Start 11/07/19 at 21:00 Furosemide (Lasix) 40 mg 1X ONCE IVP Last administered on 11/07/19at 21:55; Start 11/07/19 at 21:45; Stop 11/07/19 at 21:46; Status DC Cyanocobalamin (Vitamin B-12) 1,000 mcg 1X ONCE IM ; Start 11/08/19 at 08:30; Stop 11/08/19 at 08:31; Status DC Potassium Chloride (Klor-Con) 40 meq 1X ONCE PO ; Start 11/08/19 at 09:30; Stop 11/08/19 at 09:31; Status Cancel Furosemide (Lasix) 40 mg 1X ONCE IVP Last administered on 11/08/19at 17:56; Start 11/08/19 at 09:30; Stop 11/08/19 at 09:33; Status DC Pantoprazole Sodium (Protonix) 40 mg DAILYAC PO Last administered on 11/13/19at 07:41; Start 11/09/19 at 07:30; Stop 11/13/19 at 10:25; Status DC Potassium Chloride (Klor-Con) 40 meq 1X ONCE PO Last administered on 11/08/19at 11:31; Start 11/08/19 at 10:45; Stop 11/08/19 at 10:46; Status DC Potassium Chloride (Klor-Con) 40 meq 1X ONCE PO Last administered on 11/08/19at 17:56; Start 11/08/19 at 12:30; Stop 11/08/19 at 12:31; Status DC Potassium Chloride (Klor-Con) 40 meq 1X ONCE PO ; Start 11/08/19 at 11:15; Stop 11/08/19 at 11:16; Status DC Sacubitril/ Valsartan (Entresto 24 Mg-26 Mg) 1 tab BID PO Last administered on 11/15/19at 09:25; Start 11/10/19 at 09:00 Labetalol HCl (Normodyne Iv Push) 20 mg PRN Q2HR PRN IVP HYPERTENSION Last administered on 11/13/19at 03:18; Start 11/11/19 at 00:30 Vancomycin HCl (Vancomycin Trough Level) 1 each 1X ONCE MC Last administered on 11/12/19at 04:30; Start 11/12/19 at 04:30; Stop 11/12/19 at 04:31; Status DC Prednisone (Prednisone) 40 mg 1X ONCE PO Last administered on 11/11/19at 18:01; Start 11/11/19 at 17:30; Stop 11/11/19 at 17:33; Status DC Prednisone (Prednisone) 40 mg 1X ONCE PO Last administered on 11/11/19at 23:25; Start 11/11/19 at 23:00; Stop 11/11/19 at 23:01; Status DC Prednisone (Prednisone) 40 mg 1X ONCE PO Last administered on 11/12/19at 06:10; Start 11/12/19 at 07:00; Stop 11/12/19 at 07:01; Status DC Vancomycin HCl (Vancomycin Random Level) 1 each 1X ONCE MC ; Start 11/13/19 at 05:00; Stop 11/13/19 at 05:43; Status DC Methylprednisolone Sodium Succinate (SOLU-Medrol 125MG VIAL) 125 mg 1X ONCE IV Last administered on 11/12/19at 12:07; Start 11/12/19 at 10:45; Stop 11/12/19 at 10:46; Status DC Diphenhydramine HCl (Benadryl) 25 mg 1X ONCE IVP Last administered on 11/12/19at 12:39; Start 11/12/19 at 10:45; Stop 11/12/19 at 10:46; Status DC Famotidine (Pepcid Vial) 20 mg 1X ONCE IVP Last administered on 11/12/19at 12:07; Start 11/12/19 at 10:45; Stop 11/12/19 at 10:46; Status DC Lidocaine HCl (Lidocaine 1% 20ml Vial) 20 ml STK-MED ONCE .ROUTE ; Start 11/12/19 at 12:42; Stop 11/12/19 at 12:43; Status DC Iodixanol (Visipaque 320) 100 ml STK-MED ONCE .ROUTE ; Start 11/12/19 at 12:43; Stop 11/12/19 at 12:43; Status DC Heparin Sodium/ Sodium Chloride 1,000 ml @ As Directed STK-MED ONCE .ROUTE ; Start 11/12/19 at 12:43; Stop 11/12/19 at 12:43; Status DC Fentanyl Citrate (Fentanyl 2ml Vial) 100 mcg STK-MED ONCE .ROUTE ; Start 11/12/19 at 12:44; Stop 11/12/19 at 12:44; Status DC Midazolam HCl (Versed) 2 mg STK-MED ONCE .ROUTE ; Start 11/12/19 at 12:44; Stop 11/12/19 at 12:45; Status DC Heparin Sodium (Porcine) (Heparin Sodium) 10,000 unit STK-MED ONCE .ROUTE ; Start 11/12/19 at 12:44; Stop 11/12/19 at 12:45; Status DC Verapamil HCl (Verapamil) 5 mg STK-MED ONCE .ROUTE ; Start 11/12/19 at 12:44; Stop 11/12/19 at 12:45; Status DC Nitroglycerin (Nitroglycerin) 200 mcg STK-MED ONCE .ROUTE ; Start 11/12/19 at 12:44; Stop 11/12/19 at 12:45; Status DC Nitroglycerin (Nitroglycerin) 200 mcg 1X ONCE IART Last administered on 11/12/19at 13:59; Start 11/12/19 at 13:45; Stop 11/12/19 at 13:49; Status DC Verapamil HCl (Verapamil) 2.5 mg 1X ONCE IART Last administered on 11/12/19at 13:59; Start 11/12/19 at 13:45; Stop 11/12/19 at 13:49; Status DC Heparin Sodium (Porcine) (Heparin Sodium) 2,500 unit 1X ONCE IART Last administered on 11/12/19at 13:58; Start 11/12/19 at 13:45; Stop 11/12/19 at 13:49; Status DC Heparin Sodium/ Sodium Chloride (HEPARIN for ARTERIAL LINE FLUSH) 1,000 unit 1X ONCE IART Last administered on 11/12/19at 13:57; Start 11/12/19 at 13:45; Stop 11/12/19 at 13:49; Status DC Heparin Sodium/ Sodium Chloride (HEPARIN for ARTERIAL LINE FLUSH) 1,000 unit 1X ONCE IART Last administered on 11/12/19at 13:57; Start 11/12/19 at 13:45; Stop 11/12/19 at 13:49; Status DC Fentanyl Citrate (Fentanyl 2ml Vial) 100 mcg 1X ONCE IV Last administered on 11/12/19at 14:00; Start 11/12/19 at 13:45; Stop 11/12/19 at 13:49; Status DC Iodixanol (Visipaque 320) 100 ml 1X ONCE IART Last administered on 11/12/19at 13:58; Start 11/12/19 at 13:45; Stop 11/12/19 at 13:50; Status DC Lidocaine HCl (Lidocaine 1% 20ml Vial) 20 ml 1X ONCE INJ Last administered on 11/12/19at 13:58; Start 11/12/19 at 13:45; Stop 11/12/19 at 13:49; Status DC Hydralazine HCl (Apresoline Inj) 10 mg PRN Q4HRS PRN IVP ELEVATED BP, SEE COMMENTS Last administered on 11/13/19at 14:59; Start 11/12/19 at 14:30 Furosemide (Lasix) 40 mg 1X ONCE IVP Last administered on 11/12/19at 16:22; Start 11/12/19 at 16:00; Stop 11/12/19 at 16:01; Status DC Vancomycin HCl (Vanco Per Pharmacy) 1 each 1X STAT MC ; Start 11/13/19 at 05:30; Stop 11/13/19 at 05:31; Status UNV Vancomycin HCl (Vancomycin Random Level) 1 each 1X ONCE MC ; Start 11/13/19 at 17:00; Stop 11/13/19 at 17:01; Status DC Furosemide (Lasix) 40 mg DAILY IVP Last administered on 11/15/19at 09:25; Start 11/13/19 at 09:00 Insulin Human Lispro (HumaLOG) 0-7 UNITS TIDWMEALS SQ ; Start 11/13/19 at 09:00; Stop 11/13/19 at 09:01; Status DC Dextrose (Dextrose 50%-Water Syringe) 12.5 gm PRN Q15MIN PRN IV SEE COMMENTS; Start 11/13/19 at 09:00 Insulin Human Lispro (HumaLOG) 0-7 UNITS Q6HRS SQ Last administered on 11/13/19at 09:56; Start 11/13/19 at 09:00; Stop 11/13/19 at 11:47; Status DC Lansoprazole (Prevacid) 30 mg DAILY PO Last administered on 11/15/19at 09:24; Start 11/14/19 at 09:00 Info (Icu Electrolyte Protocol) 1 ea CONT PRN PRN MC PER PROTOCOL; Start 11/13/19 at 11:00; Stop 11/13/19 at 10:49; Status DC Info (Non-Icu Electrolyte Protocol) 1 ea CONT PRN PRN MC SEE COMMENTS; Start 11/13/19 at 11:00 Potassium Chloride/Water 100 ml @ 100 mls/hr Q1H IV Last administered on 11/13/19at 14:59; Start 11/13/19 at 11:30; Stop 11/13/19 at 15:29; Status DC Insulin Human Lispro (HumaLOG) 0-9 UNITS Q6HRS SQ Last administered on 11/15/19at 12:32; Start 11/13/19 at 12:00 Metoprolol Tartrate (Lopressor) 50 mg BID PO Last administered on 11/15/19at 09:24; Start 11/13/19 at 21:00 Vancomycin HCl 1 gm/Sodium Chloride 250 ml @ 250 mls/hr Q48H IV Last administered on 11/13/19at 19:28; Start 11/13/19 at 19:00 Furosemide (Lasix) 40 mg 1X ONCE IVP Last administered on 11/14/19at 15:31; Start 11/14/19 at 15:00; Stop 11/14/19 at 15:01; Status DC Potassium Bicarbonate (Potassium Effervescent Tablet) 20 meq DAILY PEG Last administered on 11/15/19at 09:24; Start 11/15/19 at 09:00 Hydralazine HCl (Apresoline) 25 mg TID PO Last administered on 11/15/19at 09:25; Start 11/14/19 at 14:00 Active Scripts Active Reported Januvia (Sitagliptin Phosphate) 100 Mg Tablet 1 Tab PO DAILY Pantoprazole Sodium (Pantoprazole Sodium) 40 Mg Tablet. 20 Mg PO DAILYAC Glimepiride 1 Mg Tablet 1 Tab PO DAILY Hydrocodone-Apap 5-325 (Hydrocodone Bit/Acetaminophen) 1 Tab Tablet 1 Tab PO PRN Q6HRS PRN Lisinopril 10 Mg Tablet 1 Tab PO DAILY Acetaminophen 500 Mg Tablet 1 Tab PO BID Trazodone Hcl 50 Mg Tablet 0.5 Tab PO QHS Omeprazole 20 Mg Capsule. 1 Cap PO DAILY Novolog (Insulin Aspart) 100 Unit/1 Ml Cartridge 100 Unit SQ QIDACHS Naproxen 500 Mg Tablet 1 Tab PO PRN Q8HRS PRN Lidocaine PATCH (Lidocaine) 1 Each Adh..patch 1 Each TP DAILY REMOVE AFTER 12 HOURS Latanoprost 2.5 Ml Drops 1 Drop EACHEYE QHS Duoneb 0.5-3(2.5) Mg/3 Ml (Albuterol/Ipratropium) 3 Ml Ampul.neb 3 Ml NEB PRN Q4HRS PRN Imodium A-D (Loperamide HCl) 2 Mg Capsule 2 Mg PO PRN PRN Flonase Allergy Relief (Fluticasone Propionate) 9.9 Ml [place].susp 1 Sprays NS PRN Q12HRS PRN Coreg (Carvedilol) 3.125 Mg Tablet 3.125 Mg PO BIDWMEALS Chloraseptic (Phenol) 20 Ml [place] 1 [place] MM PRN Q6HRS PRN Calcium Citrate 250 Mg Tablet 500 Mg PO DAILY Tylenol (Acetaminophen) 325 Mg Tablet 2 Tab PO PRN Q6HRS PRN Atorvastatin Calcium 10 Mg Tablet 1 Tab PO QHS Proair Respiclick (Albuterol Sulfate) 90 Mcg Aer.pow.ba 1 Puff IH PRN Q6HRS PRN Alendronate Sodium 70 Mg Tablet 1 Tab PO WEEKLY Citalopram Hbr (Citalopram Hydrobromide) 10 Mg Tablet 1.5 Tab PO DAILY Cetirizine Hcl 10 Mg Tablet 1 Tab PO DAILY Guaifenesin 600 Mg Tablet.er 600 Mg PO PRN Q8HRS PRN Clopidogrel (Clopidogrel Bisulfate) 75 Mg Tablet 1 Tab PO DAILY Novolog Flexpen (Insulin Aspart) 100 Unit/1 Ml Insuln.pen 0-3 Unit SQ QIDACHS PATIENT SLIDING SCALE. 70-249= 0 UNITS. 250-400= 3UNITS. BEFORE MEALS AND AT BEDTIME GIVE 3 UNITS IF BLOOD SUGAR 250 OR ABOVE. Diclofenac Sodium 100 Gm Gel..gram. 1 Carlos TP DAILY D3-50 (Cholecalciferol (Vitamin D3)) 50,000 Unit Capsule 50,000 Unit PO DAILY Trazodone Hcl 50 Mg Tablet 0.5 Tab PO QHS Reglan (Metoclopramide Hcl) 5 Mg Tablet 5 Mg PO DAILY Protonix (Pantoprazole Sodium) 20 Mg Tablet.dr 1 Tab PO DAILY [place] 5-325 Tablet (Hydrocodone Bit/Acetaminophen) 1 Each Tablet 1 Tab PO Q4HRS Naproxen 500 Mg Tablet 1 Tab PO Q8HRS Lisinopril 2.5 Mg Tablet 1 Tab PO DAILY Lidocaine PATCH (Lidocaine) 1 Each Adh..patch 1 Each TP DAILY REMOVE AFTER 12 HOURS Lasix (Furosemide) 20 Mg Tablet 1 Tab PO DAILY 30 Days Duoneb 0.5-3(2.5) Mg/3 Ml (Albuterol/Ipratropium) 3 Ml Ampul.neb 3 Ml NEB QID Imodium A-D (Loperamide HCl) 2 Mg Capsule 2 Mg PO DAILY Guaifenesin 400 Mg Tablet 400 Mg PO Q8HRS Coreg (Carvedilol) 3.125 Mg Tablet 3.125 Mg PO BID Clopidogrel (Clopidogrel Bisulfate) 75 Mg Tablet 75 Mg PO DAILY Citalopram Hbr (Citalopram Hydrobromide) 10 Mg Tablet 10 Mg PO DAILY Atorvastatin Calcium 10 Mg Tablet 10 Mg PO DAILY Proair Hfa Inhaler (Albuterol Sulfate) 8.5 Gm Hfa.aer.ad 1 Puff INH PRN Q6HRS Acetaminophen 500 Mg Tablet 1 Tab PO PRN Q6HRS Glimepiride 1 Mg Tablet 1 Mg PO DAILY Simvastatin 40 Mg Tablet 40 Mg PO HS Omeprazole 20 Mg Capsule.dr 20 Mg PO DAILY Januvia (Sitagliptin Phosphate) 100 Mg Tablet 100 Mg PO DAILY Vitals/I & O Vital Sign - Last 24 Hours 11/14/19 11/14/19 11/14/19 11/14/19 14:11 14:46 19:30 20:00 Temp 97.6 97.8 97.6 97.8 Pulse 77 85 79 Resp 16 16 B/P (MAP) 161/71 161/74 (103) 143/65 (91) Pulse Ox 97 98 O2 Delivery Nasal Cannula Nasal Cannula Nasal Cannula O2 Flow Rate 3.0 3.0 2.0 11/14/19 11/14/19 11/14/19 11/14/19 21:06 21:07 21:07 22:20 Temp 98.0 98.0 Pulse 79 79 79 77 Resp 18 B/P (MAP) 143/65 143/65 143/65 155/79 (104) Pulse Ox 100 O2 Delivery Nasal Cannula O2 Flow Rate 3.0 11/15/19 11/15/19 11/15/19 11/15/19 02:39 07:00 08:00 09:24 Temp 97.5 97.6 97.5 97.6 Pulse 69 83 83 Resp 16 18 B/P (MAP) 174/76 (108) 171/88 (115) 171/88 Pulse Ox 100 99 O2 Delivery Nasal Cannula Nasal Cannula Nasal Cannula O2 Flow Rate 3.0 2.0 3.0 11/15/19 11/15/19 11/15/19 09:25 09:25 10:56 Temp 98.2 98.2 Pulse 83 83 74 Resp 16 B/P (MAP) 171/88 171/88 157/69 (98) Pulse Ox 93 O2 Delivery Nasal Cannula O2 Flow Rate 3.0 Intake and Output 11/14/19 11/14/19 11/15/19 15:00 23:00 07:00 Intake Total 0 ml 0 ml 80 ml Output Total 1200 ml 1350 ml 1500 ml Balance -1200 ml -1350 ml -1420 ml Problem List Failure to thrive- with dementia and oropharyngeal dysphagia, conservative medical therapy recommended. Await disposition plans Justicifation of Admission Dx: Justifications for Admission: Justification of Admission Dx: Yes Respiratory Failure: Mechanical Ventilation Altered Mental Status: Altered Mental Status CARLA HARRIS MD Nov 15, 2019 13:47
[2019-11-15] MEDS: VANCOMYCIN PER PHARMACY MC PRN (14:01)
[2019-11-15 15:00] VITALS: BP 171/78
[2019-11-15] MEDS: VANCOMYCIN 1 GM in IV NORMAL SALINE 250ML 250 ML IV SCH (18:05)
[2019-11-15 19:42] VITALS: BP 162/57
[2019-11-15] MEDS: LATANOPROST 0.005% OPHTH SOLUTION 2.5ML BOTTLE. OU SCH (20:20)
[2019-11-15] MEDS: ATORVASTATIN CALCIUM 10 MG TABLET. PO SCH (20:22)
[2019-11-15 23:30] VITALS: BP 169/72
[2019-11-16 03:40] VITALS: BP 143/60
[2019-11-16] MEDS: PIPERACILLIN/TAZOBACTAM 3.375 GM in IV NORMAL SALINE 50ML 50 ML IV SCH ×6 (05:25→23:27)
[2019-11-16] MEDS: INSULIN LISPRO 300 UNITS/3 ML VIAL. SQ SCH ×3 (05:27→17:41)
[2019-11-16 05:53] LABS: CALCIUM 8.5 mg/dL (8.5-10.1); CREATININE 1.3 mg/dL (0.6-1.0); GFR 39.4; POTASSIUM 3.5 mmol/L (3.5-5.1)
[2019-11-16 07:00] VITALS: BP 161/75
--- NOTE | 2019-11-16 08:36 | PN ---
DATE: 11/16/2019 SUBJECTIVE: The patient is resting flat, sleeping comfortably, in no apparent distress. She is arousable. On questioning her, she denied any complaints. PHYSICAL EXAMINATION: GENERAL: When I examined her, she was pale, but no jaundice, cyanosis or thyromegaly. No jugular venous distention. No limb edema. VITAL SIGNS: Her heart rate was 76, blood pressure was 143/60, temperature was 98.1, respiratory rate 21 and oxygen saturation was 94% on 3 liters of oxygen. HEAD, EYES, EARS, NOSE AND THROAT: Showed normocephalic, atraumatic. NECK: Supple. CARDIAC: Normal first and second heart sounds. No gallop or murmur. CHEST: Shows central trachea, equal bilateral expansion, air entry, vesicular sounds. No crepitation or rhonchi anteriorly. ABDOMEN: Soft, nontender. NEUROLOGIC: She is demented without any obvious lateralizing sign. She moves all extremities spontaneously, although she is mostly bedbound. Her intake was incompletely recorded, output was 4015. LABORATORY DATA: Her chemistry this morning showed a serum sodium 140, potassium 3.5, chloride 103, bicarbonate 28, anion gap of 9, BUN 45, creatinine 1.3, estimated GFR was 39 mL per minute. Her glucose is 182, calcium was 8.5. Her most recent white cell count was 15,700, hemoglobin 8.7, hematocrit 25.8, MCV 91 and platelet count 349,000. ASSESSMENT: 1. Acute respiratory failure secondary to aspiration pneumonia, which she was intubated and mechanically ventilated; however, she was successfully extubated on 11/05/2019. 2. Flash pulmonary edema due to acute hypertension. The patient has improved. She was resting flat, comfortably, in no apparent respiratory distress. 3. Accelerated hypertension for which she was on Cardene drip. She is now on metoprolol succinate 50 mg once a day. Her blood pressure is much better controlled. 4. New onset tonic-clonic seizure for which she is currently on Keppra 500 mg twice a day and no further seizures were documented. 5. Hypokalemia with most recent serum potassium down to 3.5. 6. Mildly elevated troponin, felt to be secondary to demand ischemia. 7. Acute on chronic systolic and diastolic congestive heart failure. Her left ventricular systolic function is severely impaired with ejection fraction of only 25%. However, cardiac catheterization showed no significant coronary artery disease. She seemed to be clinically well compensated. She is lying flat. 8. Anemia without any obvious active bleeding. Her MRI showed signal abnormality within the posterior temporoparietal and occipital subcortical white matter that may represent a posterior reversible encephalopathy syndrome. 9. The patient has severe protein-calorie malnutrition, serum albumin is only 2.2 mg/dL. She continued to refuse to eat. She is on TPN. 10. Dysphagia and poor oral intake for which she is on TPN. 11. Acute on chronic kidney injury, resolving. Her most recent serum creatinine is down to 1.2. PLAN: Obviously to continue with Keppra for seizure disorder. Continue with metoprolol to control the blood pressure. Continue with furosemide for [id number] systolic and diastolic congestive heart failure. Continue with Zosyn and vancomycin for aspiration pneumonia. As far as her disposition, if she is accepted obviously at [facility], we will transfer her there. Otherwise, we have discussed with the family the option of placement of a gastrostomy tube and/or discharging back to [facility] on hospice. FINESSE GEORGES MD DR: IRISH/shubham JOB#: [id number] / [id number]
[2019-11-16] MEDS: METOPROLOL TART IMMED RELEASE 50 MG TABLET. PO SCH ×2 (09:25→20:54)
[2019-11-16] MEDS: SACUBITRIL/VALSARTAN 24/26MG TABLET. PO SCH ×2 (09:25→20:53)
[2019-11-16] MEDS: LANSOPRAZOLE 30 MG TAB.RAP.DR PO SCH (09:25)
[2019-11-16] MEDS: levETIRAcetam 500 MG TABLET PO SCH ×2 (09:25→20:53)
[2019-11-16] MEDS: CLOPIDOGREL BISULFATE 75 MG TABLET PO SCH (09:25)
[2019-11-16] MEDS: SERTRALINE 50 MG TABLET. PO SCH (09:26)
[2019-11-16] MEDS: LACTOBACILLUS RHAMNOSUS GG 1 CAPSULE. PO SCH ×2 (09:26→20:53)
[2019-11-16] MEDS: hydrALAZINE 25 MG TABLET PO SCH (09:26)
[2019-11-16] MEDS: CETIRIZINE HCL 10 MG TABLET. PO SCH (09:26)
[2019-11-16] MEDS: POTASSIUM BICARB 20 MEQ EFFERVESCENT TABLET. PEG SCH (09:36)
[2019-11-16] MEDS: FUROSEMIDE 40 MG/4 ML VIAL. IVP SCH (09:39)
--- NOTE | 2019-11-16 09:42 | PDOC ---
PULMONARY PROGRESS NOTES Subjective Extubated 11/04 Denies cough or SOB nursing reports no overnight events Vitals Vital Signs Date Time Temp Pulse Resp B/P (MAP) Pulse Ox O2 Delivery O2 Flow Rate FiO2 11/16/19 07:00 98.0 77 22 161/75 (103) 99 Nasal Cannula 3.0 98.0 ROS: No Nausea, No Chest Pain, No Abdominal Pain, No Increase Cough General: Alert Lungs: Clear Cardiovascular: S1 Abdomen: Soft Neuro Exam: Alert Extremities: No Edema Skin: Warm Labs Laboratory Tests Test 11/14/19 12:14 11/14/19 17:58 11/14/19 20:21 11/15/19 04:20 Glucose (Fingerstick) 180 mg/dL (70-99) 223 mg/dL (70-99) 178 mg/dL (70-99) Sodium Level 137 mmol/L (136-145) Potassium Level 3.2 mmol/L (3.5-5.1) Chloride Level 101 mmol/L (98-107) Carbon Dioxide Level 26 mmol/L (21-32) Anion Gap 10 (6-14) Blood Urea Nitrogen 55 mg/dL (-) Creatinine 1.4 mg/dL (0.6-1.0) Estimated GFR (Cockcroft-Gault) 36.2 Glucose Level 189 mg/dL (70-99) Calcium Level 9.0 mg/dL (8.5-10.1) Magnesium Level 1.7 mg/dL (1.8-2.4) Test 11/15/19 07:43 11/15/19 11:44 11/15/19 18:07 11/15/19 23:42 Glucose (Fingerstick) 188 mg/dL (70-99) 174 mg/dL (70-99) 150 mg/dL (70-99) 175 mg/dL (70-99) Test 11/16/19 03:54 11/16/19 05:27 Sodium Level 140 mmol/L (136-145) Potassium Level 3.5 mmol/L (3.5-5.1) Chloride Level 103 mmol/L (98-107) Carbon Dioxide Level 28 mmol/L (21-32) Anion Gap 9 (6-14) Blood Urea Nitrogen 45 mg/dL (7-20) Creatinine 1.3 mg/dL (0.6-1.0) Estimated GFR (Cockcroft-Gault) 39.4 Glucose Level 182 mg/dL (70-99) Calcium Level 8.5 mg/dL (8.5-10.1) Glucose (Fingerstick) 183 mg/dL (70-99) Laboratory Tests Test 11/15/19 11:44 11/15/19 18:07 11/15/19 23:42 11/16/19 03:54 Glucose (Fingerstick) 174 mg/dL (70-99) 150 mg/dL (70-99) 175 mg/dL (70-99) Sodium Level 140 mmol/L (136-145) Potassium Level 3.5 mmol/L (3.5-5.1) Chloride Level 103 mmol/L (98-107) Carbon Dioxide Level 28 mmol/L (21-32) Anion Gap 9 (6-14) Blood Urea Nitrogen 45 mg/dL (-) Creatinine 1.3 mg/dL (0.6-1.0) Estimated GFR (Cockcroft-Gault) 39.4 Glucose Level 182 mg/dL (70-99) Calcium Level 8.5 mg/dL (8.5-10.1) Test 11/16/19 05:27 Glucose (Fingerstick) 183 mg/dL (70-99) Medications Active Scripts Medications Dose Route/Sig Max Daily Dose Days Date Category Dose Instructions Paxtonuvia (Sitagliptin Phosphate) 100 Mg Tablet 1 Tab PO DAILY 11/02/19 Reported Pantoprazole Sodium (Pantoprazole Sodium) 40 Mg Tablet. 20 Mg PO DAILYAC 11/02/19 Reported Glimepiride 1 Mg Tablet 1 Tab PO DAILY 11/02/19 Reported Hydrocodone-Apap 5-325 (Hydrocodone Bit/Acetaminophen) 1 Tab Tablet 1 Tab PO PRN Q6HRS PRN 11/02/19 Reported Lisinopril 10 Mg Tablet 1 Tab PO DAILY 11/02/19 Reported Acetaminophen 500 Mg Tablet 1 Tab PO BID 11/30/18 Reported Trazodone Hcl 50 Mg Tablet 0.5 Tab PO QHS 11/30/18 Reported Omeprazole 20 Mg Capsule. 1 Cap PO DAILY 11/30/18 Reported Novolog (Insulin Aspart) 100 Unit/1 Ml Cartridge 100 Unit SQ QIDACHS 11/30/18 Reported Naproxen 500 Mg Tablet 1 Tab PO PRN Q8HRS PRN 11/30/18 Reported Lidocaine PATCH (Lidocaine) 1 Each Adh..patch 1 Each TP DAILY 11/30/18 Reported REMOVE AFTER 12 HOURS Latanoprost 2.5 Ml Drops 1 Drop EACHEYE QHS 11/30/18 Reported Duoneb 0.5-3(2.5) Mg/3 Ml (Albuterol/Ipratropium) 3 Ml Ampul.neb 3 Ml NEB PRN Q4HRS PRN 11/30/18 Reported Imodium A-D (Loperamide HCl) 2 Mg Capsule 2 Mg PO PRN PRN 11/30/18 Reported Flonase Allergy Relief (Fluticasone Propionate) 9.9 Ml [place].susp 1 Sprays NS PRN Q12HRS PRN 11/30/18 Reported Coreg (Carvedilol) 3.125 Mg Tablet 3.125 Mg PO BIDWMEALS 11/30/18 Reported Chloraseptic (Phenol) 20 Ml [place] 1 [place] MM PRN Q6HRS PRN 11/30/18 Reported Calcium Citrate 250 Mg Tablet 500 Mg PO DAILY 11/30/18 Reported Tylenol (Acetaminophen) 325 Mg Tablet 2 Tab PO PRN Q6HRS PRN 11/30/18 Reported Atorvastatin Calcium 10 Mg Tablet 1 Tab PO QHS 11/30/18 Reported Proair Respiclick (Albuterol Sulfate) 90 Mcg Aer.pow.ba 1 Puff IH PRN Q6HRS PRN 01/18/17 Reported Alendronate Sodium 70 Mg Tablet 1 Tab PO WEEKLY 01/18/17 Reported Citalopram Hbr (Citalopram Hydrobromide) 10 Mg Tablet 1.5 Tab PO DAILY 01/18/17 Reported Cetirizine Hcl 10 Mg Tablet 1 Tab PO DAILY 01/18/17 Reported Guaifenesin 600 Mg Tablet.er 600 Mg PO PRN Q8HRS PRN 01/18/17 Reported Clopidogrel (Clopidogrel Bisulfate) 75 Mg Tablet 1 Tab PO DAILY 01/18/17 Reported Novolog Flexpen (Insulin Aspart) 100 Unit/1 Ml Insuln.pen 0-3 Unit SQ QIDACHS 10/25/19 Reported PATIENT SLIDING SCALE. 70-249= 0 UNITS. 250-400= 3UNITS. BEFORE MEALS AND AT BEDTIME GIVE 3 UNITS IF BLOOD SUGAR 250 OR ABOVE. Diclofenac Sodium 100 Gm Gel..gram. 1 [place] TP DAILY 10/25/19 Reported D3-50 (Cholecalciferol (Vitamin D3)) 50,000 Unit Capsule 50,000 Unit PO DAILY 10/25/19 Reported Trazodone Hcl 50 Mg Tablet 0.5 Tab PO QHS 10/25/19 Reported Reglan (Metoclopramide Hcl) 5 Mg Tablet 5 Mg PO DAILY 10/25/19 Reported Protonix (Pantoprazole Sodium) 20 Mg Tablet.dr 1 Tab PO DAILY 10/25/19 Reported [place] 5-325 Tablet (Hydrocodone Bit/Acetaminophen) 1 Each Tablet 1 Tab PO Q4HRS 10/25/19 Reported Naproxen 500 Mg Tablet 1 Tab PO Q8HRS 10/25/19 Reported Lisinopril 2.5 Mg Tablet 1 Tab PO DAILY 10/25/19 Reported Lidocaine PATCH (Lidocaine) 1 Each Adh..patch 1 Each TP DAILY 10/25/19 Reported REMOVE AFTER 12 HOURS Lasix (Furosemide) 20 Mg Tablet 1 Tab PO DAILY 30 10/25/19 Reported Duoneb 0.5-3(2.5) Mg/3 Ml (Albuterol/Ipratropium) 3 Ml Ampul.neb 3 Ml NEB QID 10/25/19 Reported Imodium A-D (Loperamide HCl) 2 Mg Capsule 2 Mg PO DAILY 10/25/19 Reported Guaifenesin 400 Mg Tablet 400 Mg PO Q8HRS 10/25/19 Reported Coreg (Carvedilol) 3.125 Mg Tablet 3.125 Mg PO BID 10/25/19 Reported Clopidogrel (Clopidogrel Bisulfate) 75 Mg Tablet 75 Mg PO DAILY 10/25/19 Reported Citalopram Hbr (Citalopram Hydrobromide) 10 Mg Tablet 10 Mg PO DAILY 10/25/19 Reported Atorvastatin Calcium 10 Mg Tablet 10 Mg PO DAILY 10/25/19 Reported Proair Hfa Inhaler (Albuterol Sulfate) 8.5 Gm Hfa.aer.ad 1 Puff INH PRN Q6HRS 10/25/19 Reported Acetaminophen 500 Mg Tablet 1 Tab PO PRN Q6HRS 10/25/19 Reported Glimepiride 1 Mg Tablet 1 Mg PO DAILY 07/05/14 Reported Simvastatin 40 Mg Tablet 40 Mg PO HS 07/05/14 Reported Omeprazole 20 Mg Capsule.dr 20 Mg PO DAILY 07/05/14 Reported Paxtonuvia (Sitagliptin Phosphate) 100 Mg Tablet 100 Mg PO DAILY 07/05/14 Reported Comments Chest x-ray 624 improved ECHO <Conclusion> The left ventricular systolic function is severely impaired. The Ejection Fraction is 25%. Transmitral Doppler flow pattern is Grade II-pseudonormal filling dynamics. Mild to moderate mitral regurgitation. Moderate to severe tricuspid regurgitation with an estimated PAP of 83 mmHg. There is severe pulmonary hypertension. There is no evidence of significant pericardial effusion. Impression . IMPRESSION: 1. Acute respiratory failure, multifactorial in etiology. Extubated 11/04 /developed flash pulmonary edema post extubation from hypertensive urgency Rx with lasix/ bipap, --- improving patient set up with home noninvasive ventilation 2. New-onset seizure.-- no further seizures reported 3. Acute diastolic congestive heart failure, rule out myocardial infarction, less likely pneumonia. 4. Abnormal chest x-ray. 5. Electrolyte abnormality. 6. Hypertensive urgency. 7. Diabetes mellitus. 8. COVID-19 Neg 9. Dysphagia 10. cardiomyopathy EF 25% Plan . Continue supplemental oxygen as need to keep sats above 92% remains on 4 liters N/C Insurance declined LTAC, Dr. To preformed peer to peer - if accepted will transfer to [facility]. Follow cardiology input PRN BiPAP Monitor HGB and Transfuse as needed Continue PPN for nutritional support -- speech following Follow GI recs Cont. ABX PT/OT -- OOB as tolerated Possible G-tube placement and D/C back to [facility]-- if unable to go to [facility]ACH Continue seizure medications and seizure precautions D/W CRYS CHUA MD Nov 16, 2019 09:42
--- NOTE | 2019-11-16 09:50 | PDOC ---
PROGRESS NOTES Subjective Subjective Resting comfortably. No new symptoms. Objective Objective Vital Signs Date Time Temp Pulse Resp B/P (MAP) Pulse Ox O2 Delivery O2 Flow Rate FiO2 11/16/19 07:00 98.0 77 22 161/75 (103) 99 Nasal Cannula 3.0 98.0 Intake and Output 11/16/19 07:00 Intake Total 100 ml Output Total 2150 ml Balance -2050 ml Intake Oral 100 ml Output Urine Total 2150 ml # Voids 100 # Bowel Movements 4 Physical Exam Abdomen: Normal bowel sounds Heart: Regular rate Extremities: No clubbing General: mild distress HEENT: Atraumatic Lungs: Other (Mildly decreased breath sounds) Neck: Supple Psych/Mental Status: Mood NL Skin: No breakdown Assessment Assessment 1. Accelerated hypertension: Blood pressure elevated. Increase hydralazine dose for better control. 2. New onset seizure disorder with encephalopathy: on keppra, continue treatment per neurology. 3. Acute respiratory failure, multifactorial: s/p intubation, treat per pulmonary team. COVID test negative 4. Acute on chronic diastolic/systolic heart failure: better compensated. LVEF 25% with severe pulmonary hypertension. 5. Mild troponin elevation: type 2. Continue medical management. 6. Paroxysmal Torsades: No further episodes on telemetry. Continue beta-bloc kers. 7. Asymptomatic SB: lowest 50s. none further, no pauses 8. Normocytic anemia with hx of MGUS: post transfusion. 9. Protein malnutrition Possible transfer to [facility] on Monday Comment Review of Relevant I have reviewed the following items regina (where applicable) has been applied. Labs Laboratory Tests Test 11/15/19 11:44 11/15/19 18:07 11/15/19 23:42 11/16/19 03:54 Glucose (Fingerstick) 174 mg/dL (70-99) 150 mg/dL (70-99) 175 mg/dL (70-99) Sodium Level 140 mmol/L (136-145) Potassium Level 3.5 mmol/L (3.5-5.1) Chloride Level 103 mmol/L (98-107) Carbon Dioxide Level 28 mmol/L (21-32) Anion Gap 9 (6-14) Blood Urea Nitrogen 45 mg/dL (7-20) Creatinine 1.3 mg/dL (0.6-1.0) Estimated GFR (Cockcroft-Gault) 39.4 Glucose Level 182 mg/dL (70-99) Calcium Level 8.5 mg/dL (8.5-10.1) Test 11/16/19 05:27 Glucose (Fingerstick) 183 mg/dL (70-99) Vitals/I & O Vital Sign - Last 24 Hours 11/15/19 11/15/19 11/15/19 11/15/19 10:56 14:31 15:00 19:40 Temp 98.2 97.8 98.2 97.8 Pulse 74 74 71 Resp 16 16 B/P (MAP) 157/69 (98) 157/69 171/78 (109) Pulse Ox 93 98 O2 Delivery Nasal Cannula Nasal Cannula Nasal Cannula O2 Flow Rate 3.0 3.0 2.0 11/15/19 11/15/19 11/15/19 11/15/19 19:42 20:21 20:22 20:22 Temp 97.9 97.9 Pulse 80 83 83 83 Resp 21 B/P (MAP) 162/57 (92) 162/57 162/57 162/57 Pulse Ox 95 O2 Delivery Nasal Cannula O2 Flow Rate 3.0 11/15/19 11/16/19 11/16/19 23:30 03:40 07:00 Temp 97.7 98.1 98.0 97.7 98.1 98.0 Pulse 67 76 77 Resp 21 21 22 B/P (MAP) 169/72 (104) 143/60 (87) 161/75 (103) Pulse Ox 98 94 99 O2 Delivery Nasal Cannula Nasal Cannula Nasal Cannula O2 Flow Rate 3.0 3.0 3.0 Intake and Output 11/15/19 11/15/19 11/16/19 15:00 23:00 07:00 Intake Total 0 ml 100 ml Output Total 1000 ml 1150 ml Balance -1000 ml -1050 ml ASHELY SANCHES MD Nov 16, 2019 09:50
[2019-11-16] MEDS: AMINO AC 3%/ELECTROLYTE/GLYCER 1,000 ML IV SCH ×2 (09:51→21:22)
[2019-11-16] MEDS: CYANOCOBALAMIN (VITAMIN B-12) 1,000 MCG/ML VIAL IM SCH (10:03)
[2019-11-16 10:56] VITALS: BP 133/52
[2019-11-16 14:33] VITALS: BP 156/73
[2019-11-16] MEDS: VANCOMYCIN PER PHARMACY MC PRN (14:39)
[2019-11-16 19:19] VITALS: BP 146/51
[2019-11-16] MEDS: ATORVASTATIN CALCIUM 10 MG TABLET. PO SCH (20:54)
[2019-11-16] MEDS: LATANOPROST 0.005% OPHTH SOLUTION 2.5ML BOTTLE. OU SCH (20:54)
[2019-11-16 23:40] VITALS: BP 166/64
[2019-11-16] MEDS: ACETAMINOPHEN 325 MG TABLET. PO PRN (23:48)
[2019-11-17 03:54] VITALS: BP 169/69
[2019-11-17] MEDS: PIPERACILLIN/TAZOBACTAM 3.375 GM in IV NORMAL SALINE 50ML 50 ML IV SCH ×4 (05:34→23:06)
[2019-11-17] MEDS: INSULIN LISPRO 300 UNITS/3 ML VIAL. SQ SCH ×5 (06:00→23:16)
[2019-11-17 07:00] VITALS: BP 178/82
[2019-11-17 07:31] LABS: HEMATOCRIT 28.2 % (36.0-47.0); HEMOGLOBIN 9.4 g/dL (12.0-15.5); RED BLOOD COUNT 3.13 x10^6/uL (3.50-5.40); RED CELL DISTRIBUTION WIDTH 17.4 % (11.5-14.5); WHITE BLOOD COUNT 8.6 x10^3/uL (4.0-11.0)
[2019-11-17 07:55] LABS: CALCIUM 8.4 mg/dL (8.5-10.1); CREATININE 1.1 mg/dL (0.6-1.0); GFR 47.8; POTASSIUM 3.2 mmol/L (3.5-5.1)
[2019-11-17] MEDS: POTASSIUM BICARB 20 MEQ EFFERVESCENT TABLET. PEG SCH ×3 (08:56→22:48)
[2019-11-17] MEDS: SERTRALINE 50 MG TABLET. PO SCH (08:56)
[2019-11-17] MEDS: CETIRIZINE HCL 10 MG TABLET. PO SCH (08:56)
[2019-11-17] MEDS: levETIRAcetam 500 MG TABLET PO SCH ×2 (08:56→22:45)
[2019-11-17] MEDS: LANSOPRAZOLE 30 MG TAB.RAP.DR PO SCH (08:56)
[2019-11-17] MEDS: LACTOBACILLUS RHAMNOSUS GG 1 CAPSULE. PO SCH ×2 (08:56→22:47)
[2019-11-17] MEDS: CLOPIDOGREL BISULFATE 75 MG TABLET PO SCH (08:57)
[2019-11-17] MEDS: CYANOCOBALAMIN (VITAMIN B-12) 1,000 MCG/ML VIAL IM SCH (08:57)
[2019-11-17] MEDS: METOPROLOL TART IMMED RELEASE 50 MG TABLET. PO SCH ×2 (08:57→22:47)
[2019-11-17] MEDS: SACUBITRIL/VALSARTAN 24/26MG TABLET. PO SCH ×2 (08:57→22:46)
[2019-11-17] MEDS: FUROSEMIDE 40 MG/4 ML VIAL. IVP SCH (08:58)
--- NOTE | 2019-11-17 09:12 | PN ---
DATE: 11/17/2019 SUBJECTIVE: The patient is resting flat, sleeping comfortably, in no apparent distress. She is arousable. On questioning her, she denied any complaints and nursing staff did not voice any concerns that she has generally uneventful night. She continues to refuse to eat. PHYSICAL EXAMINATION: GENERAL: When I examined her, she was pale. No jaundice, cyanosis or thyromegaly. No jugular venous distention. No limb edema. VITAL SIGNS: Her heart rate was 71, blood pressure was 169/69, temperature was 97.9, respiratory rate was 16, and oxygen saturation was 99% on 3 liters of oxygen. HEAD, EYES, EARS, NOSE AND THROAT: Normocephalic, atraumatic. NECK: Supple. CARDIAC: Normal first and second heart sounds. No gallop or murmur. CHEST: Clear to auscultation. No crepitation or rhonchi. ABDOMEN: Slightly distended, soft, nontender. NEUROLOGIC: She is sleepy, but arousable. All cranial nerves intact. She moves extremities without difficulty, although she is mostly bedbound, chair bound. Her intake over the last 24 hours was incompletely recorded, output was 2150. LABORATORY DATA: Her lab work this morning showed a serum sodium of 138, potassium 3.2, chloride 100, bicarbonate 31, anion gap of 7, BUN 32, creatinine 1.1, estimated GFR was 48 mL per minute. Her glucose was 190, calcium was 8.4. Her white cell count was 8600, hemoglobin 9, hematocrit 28, MCV 90 and platelet count 210,000. ASSESSMENT: 1. Acute respiratory failure secondary to aspiration pneumonia, for which she was intubated and mechanically ventilated; however, she was successfully extubated on 11/05/2019. 2. Flash pulmonary edema due to acute post-extubation, much improved. The patient has been resting flat comfortably, in no apparent distress. 3. Accelerated hypertension, for which she was on Cardene drip. She is now on metoprolol succinate 50 mg once a day and her blood pressure is much better controlled. 4. New onset tonic-clonic seizure, for which she is currently on Keppra 500 mg twice a day. No further seizures documented. 5. Hypokalemia. Most recent serum potassium is down to 3.2. 6. Mildly elevated troponin, felt to be secondary to demand ischemia. 7. Acute on chronic systolic and diastolic congestive heart failure, left ventricular systolic function is severely impaired with ejection fraction of only 25%. However, cardiac catheterization showed no significant coronary artery disease and today she was lying flat in bed, seemed to be well compensated. 8. Anemia without any obvious active bleeding. Her MRI showed signal abnormality within the posterior temporoparietal and occipital subcortical white matter, represents posterior reversible encephalopathy syndrome. 9. The patient has severe protein-calorie malnutrition. Serum albumin is only 2.2 mg/dL. She continued to be on PPN. She is not eating. 10. Dysphagia with poor oral intake, for which she is on PPN. 11. Acute on chronic kidney injury, resolving. His most recent serum creatinine is down to 1.1. PLAN: To consult psychologist social for possible gastrostomy tube placement and as she continued to have poor appetite, is not eating, the insurance did not authorize her transfer to the [facility] and therefore at least if we can arrange for her further to secure her nutritional support and she can be discharged back to [facility]. FINESSE GEORGES MD DR: IRISH/shubham JOB#: [id number] / [id number]
[2019-11-17 11:00] VITALS: BP 130/65
--- NOTE | 2019-11-17 11:13 | PDOC ---
PULMONARY PROGRESS NOTES Subjective Extubated 11/04 Denies cough or SOB Loose stools overnight now pending C. difficile, no other concerns from nursing Vitals Vital Signs Date Time Temp Pulse Resp B/P (MAP) Pulse Ox O2 Delivery O2 Flow Rate FiO2 11/17/19 08:57 73 178/82 11/17/19 08:00 Nasal Cannula 3.0 11/17/19 07:00 97.6 18 98 97.6 ROS: No Nausea, No Chest Pain, No Abdominal Pain, No Increase Cough General: Alert Lungs: Clear Cardiovascular: S1 Abdomen: Soft Neuro Exam: Alert Extremities: No Edema Skin: Warm Labs Laboratory Tests Test 11/15/19 11:44 11/15/19 18:07 11/15/19 23:42 11/16/19 03:54 Glucose (Fingerstick) 174 mg/dL (70-99) 150 mg/dL (70-99) 175 mg/dL (70-99) Sodium Level 140 mmol/L (136-145) Potassium Level 3.5 mmol/L (3.5-5.1) Chloride Level 103 mmol/L (98-107) Carbon Dioxide Level 28 mmol/L (21-32) Anion Gap 9 (6-14) Blood Urea Nitrogen 45 mg/dL (-20) Creatinine 1.3 mg/dL (0.6-1.0) Estimated GFR (Cockcroft-Gault) 39.4 Glucose Level 182 mg/dL (70-99) Calcium Level 8.5 mg/dL (8.5-10.1) Test 11/16/19 05:27 11/16/19 11:42 11/16/19 17:35 11/16/19 23:33 Glucose (Fingerstick) 183 mg/dL (70-99) 239 mg/dL (70-99) 182 mg/dL (70-99) 183 mg/dL (70-99) Test 11/17/19 05:56 11/17/19 07:05 Glucose (Fingerstick) 190 mg/dL (70-99) White Blood Count 8.6 x10^3/uL (4.0-11.0) Red Blood Count 3.13 x10^6/uL (3.50-5.40) Hemoglobin 9.4 g/dL (12.0-15.5) Hematocrit 28.2 % (36.0-47.0) Mean Corpuscular Volume 90 fL (79-100) Mean Corpuscular Hemoglobin 30 pg (25-35) Mean Corpuscular Hemoglobin Concent 34 g/dL (31-37) Red Cell Distribution Width 17.4 % (11.5-14.5) Platelet Count 210 x10^3/uL (140-400) Sodium Level 138 mmol/L (136-145) Potassium Level 3.2 mmol/L (3.5-5.1) Chloride Level 100 mmol/L (98-107) Carbon Dioxide Level 31 mmol/L (21-32) Anion Gap 7 (6-14) Blood Urea Nitrogen 32 mg/dL (7-20) Creatinine 1.1 mg/dL (0.6-1.0) Estimated GFR (Cockcroft-Gault) 47.8 Glucose Level 190 mg/dL (70-99) Calcium Level 8.4 mg/dL (8.5-10.1) Laboratory Tests Test 11/16/19 11:42 11/16/19 17:35 11/16/19 23:33 11/17/19 05:56 Glucose (Fingerstick) 239 mg/dL (70-99) 182 mg/dL (70-99) 183 mg/dL (70-99) 190 mg/dL (70-99) Test 11/17/19 07:05 White Blood Count 8.6 x10^3/uL (4.0-11.0) Red Blood Count 3.13 x10^6/uL (3.50-5.40) Hemoglobin 9.4 g/dL (12.0-15.5) Hematocrit 28.2 % (36.0-47.0) Mean Corpuscular Volume 90 fL (79-100) Mean Corpuscular Hemoglobin 30 pg (25-35) Mean Corpuscular Hemoglobin Concent 34 g/dL (31-37) Red Cell Distribution Width 17.4 % (11.5-14.5) Platelet Count 210 x10^3/uL (140-400) Sodium Level 138 mmol/L (136-145) Potassium Level 3.2 mmol/L (3.5-5.1) Chloride Level 100 mmol/L (98-107) Carbon Dioxide Level 31 mmol/L (21-32) Anion Gap 7 (6-14) Blood Urea Nitrogen 32 mg/dL (7-20) Creatinine 1.1 mg/dL (0.6-1.0) Estimated GFR (Cockcroft-Gault) 47.8 Glucose Level 190 mg/dL (70-99) Calcium Level 8.4 mg/dL (8.5-10.1) Medications Active Scripts Medications Dose Route/Sig Max Daily Dose Days Date Category Dose Instructions Januvia (Sitagliptin Phosphate) 100 Mg Tablet 1 Tab PO DAILY 11/02/19 Reported Pantoprazole Sodium (Pantoprazole Sodium) 40 Mg Tablet.dr 20 Mg PO DAILYAC 11/02/19 Reported Glimepiride 1 Mg Tablet 1 Tab PO DAILY 11/02/19 Reported Hydrocodone-Apap 5-325 (Hydrocodone Bit/Acetaminophen) 1 Tab Tablet 1 Tab PO PRN Q6HRS PRN 11/02/19 Reported Lisinopril 10 Mg Tablet 1 Tab PO DAILY 11/02/19 Reported Acetaminophen 500 Mg Tablet 1 Tab PO BID 11/30/18 Reported Trazodone Hcl 50 Mg Tablet 0.5 Tab PO QHS 11/30/18 Reported Omeprazole 20 Mg Capsule.dr 1 Cap PO DAILY 11/30/18 Reported Novolog (Insulin Aspart) 100 Unit/1 Ml Cartridge 100 Unit SQ QIDACHS 11/30/18 Reported Naproxen 500 Mg Tablet 1 Tab PO PRN Q8HRS PRN 11/30/18 Reported Lidocaine PATCH (Lidocaine) 1 Each Adh..patch 1 Each TP DAILY 11/30/18 Reported REMOVE AFTER 12 HOURS Latanoprost 2.5 Ml Drops 1 Drop EACHEYE QHS 11/30/18 Reported Duoneb 0.5-3(2.5) Mg/3 Ml (Albuterol/Ipratropium) 3 Ml Ampul.neb 3 Ml NEB PRN Q4HRS PRN 11/30/18 Reported Imodium A-D (Loperamide HCl) 2 Mg Capsule 2 Mg PO PRN PRN 11/30/18 Reported Flonase Allergy Relief (Fluticasone Propionate) 9.9 Ml [place].susp 1 Sprays NS PRN Q12HRS PRN 11/30/18 Reported Coreg (Carvedilol) 3.125 Mg Tablet 3.125 Mg PO BIDWMEALS 11/30/18 Reported Chloraseptic (Phenol) 20 Ml [place] 1 [place] MM PRN Q6HRS PRN 11/30/18 Reported Calcium Citrate 250 Mg Tablet 500 Mg PO DAILY 11/30/18 Reported Tylenol (Acetaminophen) 325 Mg Tablet 2 Tab PO PRN Q6HRS PRN 11/30/18 Reported Atorvastatin Calcium 10 Mg Tablet 1 Tab PO QHS 11/30/18 Reported Proair Respiclick (Albuterol Sulfate) 90 Mcg Aer.pow.ba 1 Puff IH PRN Q6HRS PRN 01/18/17 Reported Alendronate Sodium 70 Mg Tablet 1 Tab PO WEEKLY 01/18/17 Reported Citalopram Hbr (Citalopram Hydrobromide) 10 Mg Tablet 1.5 Tab PO DAILY 01/18/17 Reported Cetirizine Hcl 10 Mg Tablet 1 Tab PO DAILY 01/18/17 Reported Guaifenesin 600 Mg Tablet.er 600 Mg PO PRN Q8HRS PRN 01/18/17 Reported Clopidogrel (Clopidogrel Bisulfate) 75 Mg Tablet 1 Tab PO DAILY 01/18/17 Reported Novolog Flexpen (Insulin Aspart) 100 Unit/1 Ml Insuln.pen 0-3 Unit SQ QIDACHS 10/25/19 Reported PATIENT SLIDING SCALE. 70-249= 0 UNITS. 250-400= 3UNITS. BEFORE MEALS AND AT BEDTIME GIVE 3 UNITS IF BLOOD SUGAR 250 OR ABOVE. Diclofenac Sodium 100 Gm Gel..gram. 1 [place] TP DAILY 10/25/19 Reported D3-50 (Cholecalciferol (Vitamin D3)) 50,000 Unit Capsule 50,000 Unit PO DAILY 10/25/19 Reported Trazodone Hcl 50 Mg Tablet 0.5 Tab PO QHS 10/25/19 Reported Reglan (Metoclopramide Hcl) 5 Mg Tablet 5 Mg PO DAILY 10/25/19 Reported Protonix (Pantoprazole Sodium) 20 Mg Tablet.dr 1 Tab PO DAILY 10/25/[address] [place] 5-325 Tablet (Hydrocodone Bit/Acetaminophen) 1 Each Tablet 1 Tab PO Q4HRS 10/25/19 Reported Naproxen 500 Mg Tablet 1 Tab PO Q8HRS 10/25/19 Reported Lisinopril 2.5 Mg Tablet 1 Tab PO DAILY 10/25/19 Reported Lidocaine PATCH (Lidocaine) 1 Each Adh..patch 1 Each TP DAILY 10/25/19 Reported REMOVE AFTER 12 HOURS Lasix (Furosemide) 20 Mg Tablet 1 Tab PO DAILY 30 10/25/19 Reported Duoneb 0.5-3(2.5) Mg/3 Ml (Albuterol/Ipratropium) 3 Ml Ampul.neb 3 Ml NEB QID 10/25/19 Reported Imodium A-D (Loperamide HCl) 2 Mg Capsule 2 Mg PO DAILY 10/25/19 Reported Guaifenesin 400 Mg Tablet 400 Mg PO Q8HRS 10/25/19 Reported Coreg (Carvedilol) 3.125 Mg Tablet 3.125 Mg PO BID 10/25/19 Reported Clopidogrel (Clopidogrel Bisulfate) 75 Mg Tablet 75 Mg PO DAILY 10/25/19 Reported Citalopram Hbr (Citalopram Hydrobromide) 10 Mg Tablet 10 Mg PO DAILY 10/25/19 Reported Atorvastatin Calcium 10 Mg Tablet 10 Mg PO DAILY 10/25/19 Reported Proair Hfa Inhaler (Albuterol Sulfate) 8.5 Gm Hfa.aer.ad 1 Puff INH PRN Q6HRS 10/25/19 Reported Acetaminophen 500 Mg Tablet 1 Tab PO PRN Q6HRS 10/25/19 Reported Glimepiride 1 Mg Tablet 1 Mg PO DAILY 07/05/14 Reported Simvastatin 40 Mg Tablet 40 Mg PO HS 07/05/14 Reported Omeprazole 20 Mg Capsule.dr 20 Mg PO DAILY 07/05/14 Reported Januvia (Sitagliptin Phosphate) 100 Mg Tablet 100 Mg PO DAILY 07/05/14 Reported Comments Chest x-ray 624 improved ECHO <Conclusion> The left ventricular systolic function is severely impaired. The Ejection Fraction is 25%. Transmitral Doppler flow pattern is Grade II-pseudonormal filling dynamics. Mild to moderate mitral regurgitation. Moderate to severe tricuspid regurgitation with an estimated PAP of 83 mmHg. There is severe pulmonary hypertension. There is no evidence of significant pericardial effusion. Impression . IMPRESSION: 1. Acute respiratory failure, multifactorial in etiology. Extubated 11/04 /developed flash pulmonary edema post extubation from hypertensive urgency--improved 2. New-onset seizure.-- no further seizures reported 3. Acute diastolic congestive heart failure, rule out myocardial infarction, less likely pneumonia. 4. Abnormal chest x-ray. 5. Electrolyte abnormality. 6. Hypertensive urgency. 7. Diabetes mellitus. 8. COVID-19 Neg 9. Dysphagia--ongoing 10. cardiomyopathy EF 25% Plan . Case discussed with [employer], Continue supplemental oxygen as need to keep sats above 92% remains on 4 liters N/C Insurance declined LTAC, Dr. To preformed peer to peer - if accepted will transfer to [facility]. Follow cardiology input Monitor HGB and Transfuse as needed Continue PPN for nutritional support -- speech following Follow GI recs Cont. ABX PT/OT -- OOB as tolerated Possible G-tube placement and D/C back to [facility]-- if unable to go to LTACH Continue seizure medications and seizure precautions Await C.diff results D/W CRYS CHUA MD Nov 17, 2019 11:12
--- NOTE | 2019-11-17 12:38 | PDOC ---
PROGRESS NOTES Subjective Subjective Comfortable, no new complaints, still refusing to eat Objective Objective Vital Signs Date Time Temp Pulse Resp B/P (MAP) Pulse Ox O2 Delivery O2 Flow Rate FiO2 11/17/19 11:00 97.9 68 18 130/65 (86) 98 Nasal Cannula 3.0 97.9 Intake and Output 11/17/19 07:00 Intake Total 500 ml Output Total 2625 ml Balance -2125 ml Intake Oral 500 ml Output Urine Total 2625 ml # Bowel Movements 3 Physical Exam Abdomen: Normal bowel sounds Heart: Regular rate Extremities: No clubbing General: mild distress HEENT: Atraumatic Lungs: Other (Mildly decreased breath sounds) Neck: Supple Psych/Mental Status: Mood NL Skin: No breakdown Assessment Assessment 1. Accelerated hypertension: Better controlled with increasing hydralazine dose 2. New onset seizure disorder with encephalopathy: on keppra, continue treatment per neurology. 3. Acute respiratory failure, multifactorial: Improved, treat per pulmonary team. COVID test negative 4. Acute on chronic diastolic/systolic heart failure: better compensated. LVEF 25% with severe pulmonary hypertension. 5. Mild troponin elevation: type 2. Continue medical management. 6. Paroxysmal Torsades: No further episodes on telemetry. Continue beta- blockers. 7. Asymptomatic SB: lowest 50s. none further, no pauses 8. Normocytic anemia with hx of MGUS: post transfusion. 9. Protein calorie malnutrition Comment Review of Relevant I have reviewed the following items regina (where applicable) has been applied. Labs Laboratory Tests Test 11/16/19 17:35 11/16/19 23:33 11/17/19 05:56 11/17/19 07:05 Glucose (Fingerstick) 182 mg/dL (70-99) 183 mg/dL (70-99) 190 mg/dL (70-99) White Blood Count 8.6 x10^3/uL (4.0-11.0) Red Blood Count 3.13 x10^6/uL (3.50-5.40) Hemoglobin 9.4 g/dL (12.0-15.5) Hematocrit 28.2 % (36.0-47.0) Mean Corpuscular Volume 90 fL (79-100) Mean Corpuscular Hemoglobin 30 pg (25-35) Mean Corpuscular Hemoglobin Concent 34 g/dL (31-37) Red Cell Distribution Width 17.4 % (11.5-14.5) Platelet Count 210 x10^3/uL (140-400) Sodium Level 138 mmol/L (136-145) Potassium Level 3.2 mmol/L (3.5-5.1) Chloride Level 100 mmol/L (98-107) Carbon Dioxide Level 31 mmol/L (21-32) Anion Gap 7 (6-14) Blood Urea Nitrogen 32 mg/dL (7-20) Creatinine 1.1 mg/dL (0.6-1.0) Estimated GFR (Cockcroft-Gault) 47.8 Glucose Level 190 mg/dL (70-99) Calcium Level 8.4 mg/dL (8.5-10.1) Test 11/17/19 12:08 Glucose (Fingerstick) 228 mg/dL (70-99) Medications Current Medications Hydralazine HCl (Apresoline) 50 mg TID PO Last administered on 11/17/19at 08:57; Start 11/16/19 at 14:00 Potassium Bicarbonate (Potassium Effervescent Tablet) 20 meq TID PEG Last administered on 11/17/19at 08:56; Start 11/17/19 at 09:00 Vitals/I & O Vital Sign - Last 24 Hours 11/16/19 11/16/19 11/16/19 11/16/19 14:33 15:57 19:19 19:26 Temp 97.1 98.0 97.1 98.0 Pulse 75 67 74 Resp 20 14 B/P (MAP) 156/73 (100) 156/73 146/51 (82) Pulse Ox 99 98 O2 Delivery Nasal Cannula Nasal Cannula Nasal Cannula O2 Flow Rate 3.0 3.0 2.0 11/16/19 11/16/19 11/16/19 11/16/19 20:53 20:53 20:54 23:40 Temp 97.8 97.8 Pulse 74 74 74 75 Resp 16 B/P (MAP) 146/51 146/51 146/51 166/64 (98) Pulse Ox 99 O2 Delivery Nasal Cannula O2 Flow Rate 3.0 11/17/19 11/17/19 11/17/19 11/17/19 03:54 07:00 08:00 08:57 Temp 97.9 97.6 97.9 97.6 Pulse 71 73 73 Resp 16 18 B/P (MAP) 169/69 (102) 178/82 (114) 178/82 Pulse Ox 99 98 O2 Delivery Nasal Cannula Nasal Cannula Nasal Cannula O2 Flow Rate 3.0 3.0 3.0 11/17/19 11/17/19 11/17/19 08:57 08:57 11:00 Temp 97.9 97.9 Pulse 73 73 68 Resp 18 B/P (MAP) 178/82 178/82 130/65 (86) Pulse Ox 98 O2 Delivery Nasal Cannula O2 Flow Rate 3.0 Intake and Output 11/16/19 11/16/19 11/17/19 15:00 23:00 07:00 Intake Total 150 ml 250 ml 100 ml Output Total 1300 ml 600 ml 725 ml Balance -1150 ml -350 ml -625 ml ASHELY SANCHES MD Nov 17, 2019 12:38
[2019-11-17] MEDS: AMINO AC 3%/ELECTROLYTE/GLYCER 1,000 ML IV SCH ×2 (13:18→20:15)
[2019-11-17] MEDS: VANCOMYCIN PER PHARMACY MC PRN (14:01)
[2019-11-17 15:26] VITALS: BP 137/55
[2019-11-17] MEDS: VANCOMYCIN 1 GM in IV NORMAL SALINE 250ML 250 ML IV SCH (18:42)
[2019-11-17 19:30] VITALS: BP 152/61
[2019-11-17] MEDS: LATANOPROST 0.005% OPHTH SOLUTION 2.5ML BOTTLE. OU SCH (22:39)
[2019-11-17] MEDS: ATORVASTATIN CALCIUM 10 MG TABLET. PO SCH (22:47)
[2019-11-17 23:00] VITALS: BP 145/61
[2019-11-18] VITALS (7 sets, daily range): BP systolic 106–160; BP diastolic 41–80
[2019-11-18] MEDS: INSULIN LISPRO 300 UNITS/3 ML VIAL. SQ SCH ×4 (06:00→23:19)
[2019-11-18 06:13] LABS: CALCIUM 8.4 mg/dL (8.5-10.1); CREATININE 1.2 mg/dL (0.6-1.0); GFR 43.2; POTASSIUM 3.9 mmol/L (3.5-5.1)
[2019-11-18] MEDS: PIPERACILLIN/TAZOBACTAM 3.375 GM in IV NORMAL SALINE 50ML 50 ML IV SCH ×4 (06:59→21:14)
[2019-11-18] MEDS: POTASSIUM BICARB 20 MEQ EFFERVESCENT TABLET. PEG SCH ×3 (09:00→21:00)
--- NOTE | 2019-11-18 09:03 | PDOC ---
PULMONARY PROGRESS NOTES Subjective Extubated 11/04 Patient appears to be weak, no increasing shortness of breath Vitals Vital Signs Date Time Temp Pulse Resp B/P (MAP) Pulse Ox O2 Delivery O2 Flow Rate FiO2 11/18/19 07:00 98.0 73 20 142/61 (88) 100 Nasal Cannula 3.0 98.0 ROS: No Nausea, No Chest Pain, No Abdominal Pain, No Increase Cough General: Alert Lungs: Clear Cardiovascular: S1 Abdomen: Soft Neuro Exam: Alert Extremities: No Edema Skin: Warm Labs Laboratory Tests Test 11/16/19 11:42 11/16/19 17:35 11/16/19 23:33 11/17/19 05:56 Glucose (Fingerstick) 239 mg/dL (70-99) 182 mg/dL (70-99) 183 mg/dL (70-99) 190 mg/dL (70-99) Test 11/17/19 07:05 11/17/19 12:08 11/17/19 17:32 11/17/19 23:14 White Blood Count 8.6 x10^3/uL (4.0-11.0) Red Blood Count 3.13 x10^6/uL (3.50-5.40) Hemoglobin 9.4 g/dL (12.0-15.5) Hematocrit 28.2 % (36.0-47.0) Mean Corpuscular Volume 90 fL (79-100) Mean Corpuscular Hemoglobin 30 pg (25-35) Mean Corpuscular Hemoglobin Concent 34 g/dL (31-37) Red Cell Distribution Width 17.4 % (11.5-14.5) Platelet Count 210 x10^3/uL (140-400) Sodium Level 138 mmol/L (136-145) Potassium Level 3.2 mmol/L (3.5-5.1) Chloride Level 100 mmol/L (98-107) Carbon Dioxide Level 31 mmol/L (21-32) Anion Gap 7 (6-14) Blood Urea Nitrogen 32 mg/dL (7-20) Creatinine 1.1 mg/dL (0.6-1.0) Estimated GFR (Cockcroft-Gault) 47.8 Glucose Level 190 mg/dL (70-99) Calcium Level 8.4 mg/dL (8.5-10.1) Glucose (Fingerstick) 228 mg/dL (70-99) 163 mg/dL (70-99) 156 mg/dL (70-99) Test 11/18/19 05:14 Sodium Level 140 mmol/L (136-145) Potassium Level 3.9 mmol/L (3.5-5.1) Chloride Level 102 mmol/L (98-107) Carbon Dioxide Level 32 mmol/L (21-32) Anion Gap 6 (6-14) Blood Urea Nitrogen 30 mg/dL (7-20) Creatinine 1.2 mg/dL (0.6-1.0) Estimated GFR (Cockcroft-Gault) 43.2 Glucose Level 178 mg/dL (70-99) Calcium Level 8.4 mg/dL (8.5-10.1) Laboratory Tests Test 11/17/19 12:08 11/17/19 17:32 11/17/19 23:14 11/18/19 05:14 Glucose (Fingerstick) 228 mg/dL (70-99) 163 mg/dL (70-99) 156 mg/dL (70-99) Sodium Level 140 mmol/L (136-145) Potassium Level 3.9 mmol/L (3.5-5.1) Chloride Level 102 mmol/L (98-107) Carbon Dioxide Level 32 mmol/L (21-32) Anion Gap 6 (6-14) Blood Urea Nitrogen 30 mg/dL (7-20) Creatinine 1.2 mg/dL (0.6-1.0) Estimated GFR (Cockcroft-Gault) 43.2 Glucose Level 178 mg/dL (70-99) Calcium Level 8.4 mg/dL (8.5-10.1) Medications Active Scripts Medications Dose Route/Sig Max Daily Dose Days Date Category Dose Instructions Januvia (Sitagliptin Phosphate) 100 Mg Tablet 1 Tab PO DAILY 11/02/19 Reported Pantoprazole Sodium (Pantoprazole Sodium) 40 Mg Tablet.dr 20 Mg PO DAILYAC 11/02/19 Reported Glimepiride 1 Mg Tablet 1 Tab PO DAILY 11/02/19 Reported Hydrocodone-Apap 5-325 (Hydrocodone Bit/Acetaminophen) 1 Tab Tablet 1 Tab PO PRN Q6HRS PRN 11/02/19 Reported Lisinopril 10 Mg Tablet 1 Tab PO DAILY 6/20/20 Reported Acetaminophen 500 Mg Tablet 1 Tab PO BID 11/30/18 Reported Trazodone Hcl 50 Mg Tablet 0.5 Tab PO QHS 11/30/18 Reported Omeprazole 20 Mg Capsule.dr 1 Cap PO DAILY 11/30/18 Reported Novolog (Insulin Aspart) 100 Unit/1 Ml Cartridge 100 Unit SQ QIDACHS 11/30/18 Reported Naproxen 500 Mg Tablet 1 Tab PO PRN Q8HRS PRN 11/30/18 Reported Lidocaine PATCH (Lidocaine) 1 Each Adh..patch 1 Each TP DAILY 11/30/18 Reported REMOVE AFTER 12 HOURS Latanoprost 2.5 Ml Drops 1 Drop EACHEYE QHS 11/30/18 Reported Duoneb 0.5-3(2.5) Mg/3 Ml (Albuterol/Ipratropium) 3 Ml Ampul.neb 3 Ml NEB PRN Q4HRS PRN 11/30/18 Reported Imodium A-D (Loperamide HCl) 2 Mg Capsule 2 Mg PO PRN PRN 11/30/18 Reported Flonase Allergy Relief (Fluticasone Propionate) 9.9 Ml [employer].susp 1 Sprays NS PRN Q12HRS PRN 11/30/18 Reported Coreg (Carvedilol) 3.125 Mg Tablet 3.125 Mg PO BIDWMEALS 11/30/18 Reported Chloraseptic (Phenol) 20 Ml [employer] 1 [employer] MM PRN Q6HRS PRN 11/30/18 Reported Calcium Citrate 250 Mg Tablet 500 Mg PO DAILY 11/30/18 Reported Tylenol (Acetaminophen) 325 Mg Tablet 2 Tab PO PRN Q6HRS PRN 11/30/18 Reported Atorvastatin Calcium 10 Mg Tablet 1 Tab PO QHS 11/30/18 Reported Proair Respiclick (Albuterol Sulfate) 90 Mcg Aer.pow.ba 1 Puff IH PRN Q6HRS PRN 01/18/17 Reported Alendronate Sodium 70 Mg Tablet 1 Tab PO WEEKLY 01/18/17 Reported Citalopram Hbr (Citalopram Hydrobromide) 10 Mg Tablet 1.5 Tab PO DAILY 01/18/17 Reported Cetirizine Hcl 10 Mg Tablet 1 Tab PO DAILY 01/18/17 Reported Guaifenesin 600 Mg Tablet.er 600 Mg PO PRN Q8HRS PRN 01/18/17 Reported Clopidogrel (Clopidogrel Bisulfate) 75 Mg Tablet 1 Tab PO DAILY 01/18/17 Reported Novolog Flexpen (Insulin Aspart) 100 Unit/1 Ml Insuln.pen 0-3 Unit SQ QIDACHS 10/25/19 Reported PATIENT SLIDING SCALE. 70-249= 0 UNITS. 250-400= 3UNITS. BEFORE MEALS AND AT BEDTIME GIVE 3 UNITS IF BLOOD SUGAR 250 OR ABOVE. Diclofenac Sodium 100 Gm Gel..gram. 1 [place] TP DAILY 10/25/19 Reported D3-50 (Cholecalciferol (Vitamin D3)) 50,000 Unit Capsule 50,000 Unit PO DAILY 10/25/19 Reported Trazodone Hcl 50 Mg Tablet 0.5 Tab PO QHS 10/25/19 Reported Reglan (Metoclopramide Hcl) 5 Mg Tablet 5 Mg PO DAILY 10/25/19 Reported Protonix (Pantoprazole Sodium) 20 Mg Tablet.dr 1 Tab PO DAILY 10/25/19 Reported [place] 5-325 Tablet (Hydrocodone Bit/Acetaminophen) 1 Each Tablet 1 Tab PO Q4HRS 10/25/19 Reported Naproxen 500 Mg Tablet 1 Tab PO Q8HRS 10/25/19 Reported Lisinopril 2.5 Mg Tablet 1 Tab PO DAILY 10/25/19 Reported Lidocaine PATCH (Lidocaine) 1 Each Adh..patch 1 Each TP DAILY 10/25/19 Reported REMOVE AFTER 12 HOURS Lasix (Furosemide) 20 Mg Tablet 1 Tab PO DAILY 30 10/25/19 Reported Duoneb 0.5-3(2.5) Mg/3 Ml (Albuterol/Ipratropium) 3 Ml [place]mp[place].neb 3 Ml NEB QID 10/25/19 Reported Imodium A-D (Loperamide HCl) 2 Mg Capsule 2 Mg PO DAILY 10/25/19 Reported Guaifenesin 400 Mg Tablet 400 Mg PO Q8HRS 10/25/19 Reported Coreg (Carvedilol) 3.125 Mg Tablet 3.125 Mg PO BID 10/25/19 Reported Clopidogrel (Clopidogrel Bisulfate) 75 Mg Tablet 75 Mg PO DAILY 10/25/19 Reported Citalopram Hbr (Citalopram Hydrobromide) 10 Mg Tablet 10 Mg PO DAILY 10/25/19 Reported Atorvastatin Calcium 10 Mg Tablet 10 Mg PO DAILY 10/25/19 Reported Proair Hfa Inhaler (Albuterol Sulfate) 8.5 Gm Hfa.aer.ad 1 Puff INH PRN Q6HRS 10/25/19 Reported Acetaminophen 500 Mg Tablet 1 Tab PO PRN Q6HRS 10/25/19 Reported Glimepiride 1 Mg Tablet 1 Mg PO DAILY 07/05/14 Reported Simvastatin 40 Mg Tablet 40 Mg PO HS 07/05/14 Reported Omeprazole 20 Mg Capsule.dr 20 Mg PO DAILY 07/05/14 Reported Januvia (Sitagliptin Phosphate) 100 Mg Tablet 100 Mg PO DAILY 07/05/14 Reported Comments Chest x-ray 624 improved ECHO <Conclusion> The left ventricular systolic function is severely impaired. The Ejection Fraction is 25%. Transmitral Doppler flow pattern is Grade II-pseudonormal filling dynamics. Mild to moderate mitral regurgitation. Moderate to severe tricuspid regurgitation with an estimated PAP of 83 mmHg. There is severe pulmonary hypertension. There is no evidence of significant pericardial effusion. Impression . IMPRESSION: 1. Acute respiratory failure, multifactorial in etiology. Extubated 11/04 /developed flash pulmonary edema post extubation from hypertensive urgency--improved 2. New-onset seizure.-- no further seizures reported 3. Acute diastolic congestive heart failure, rule out myocardial infarction, less likely pneumonia. 4. Abnormal chest x-ray. 5. Electrolyte abnormality. 6. Hypertensive urgency. 7. Diabetes mellitus. 8. COVID-19 Neg 9. Dysphagia--ongoing 10. cardiomyopathy EF 25% Plan . Continue current care Continue supplemental oxygen as need to keep sats above 92% remains on 4 liters N/C Insurance declined LTAC, Dr. To preformed peer to peer - if accepted will transfer to [facility]. Follow cardiology input Monitor HGB and Transfuse as needed Continue PPN for nutritional support -- speech following Follow GI recs Cont. ABX PT/OT -- OOB as tolerated Possible G-tube placement and D/C back to [facility] rehab-- if unable to go to LTACH Continue seizure medications and seizure precautions Await C.diff results D/W CRYS CHUA MD Nov 18, 2019 09:03
--- NOTE | 2019-11-18 09:44 | PN ---
DATE: 11/18/2019 SUBJECTIVE: The patient is resting flat in bed, in no apparent respiratory distress. She is awake, alert, responding at times appropriately. She continues to refuse to eat. Her transfer to [facility] was not approved by her insurance and I spoke with her daughter with a plan to put a feeding tube to which she agreed and hopefully transfer her back to [facility]. PHYSICAL EXAMINATION: GENERAL: When I saw her this morning, she looked pale, not jaundiced or cyanosed. No lymphadenopathy, no thyromegaly. No jugular venous distention. No lower limb edema. VITAL SIGNS: Her heart rate was 73, blood pressure was 142/61, temperature was 98, respiratory rate 20, and oxygen saturation 100% on 3 liters of oxygen. HEAD, EYES, EARS, NOSE AND THROAT: Showed normocephalic, atraumatic. NECK: Supple. HEART: Showed normal first and second heart sounds. No gallop or murmur. CHEST: Clear to auscultation. No crepitation or rhonchi. ABDOMEN: Distended, soft, nontender. NEUROLOGIC: She was sleepy, but arousable. All cranial nerves intact. She moves extremities without difficulty. Her intake was 500, output was 2625. LABORATORY DATA: As of this morning, her white cell count was 8600, hemoglobin 9.4, hematocrit 28, MCV 90 and platelet count 210,000. Serum sodium 140, potassium 3.9, chloride 102, bicarbonate 32, anion gap of 6, BUN 30, creatinine 1.2, estimated GFR was 43 mL per minute. Her glucose 178 and calcium was 8.4. ASSESSMENT: 1. Acute respiratory failure secondary to aspiration pneumonia for which she was intubated and mechanically ventilated; however, she was successfully extubated on 11/05/2019. 2. Flash pulmonary edema due to post extubation, much improved. The patient has been resting flat, comfortably, in no apparent distress. 3. Accelerated hypertension for which she was on Cardizem drip. She is now on metoprolol succinate 50 mg once a day and her blood pressure is much better controlled. 4. New-onset tonic-clonic seizure for which she is currently on Keppra 500 mg twice a day. No further seizures documented. 5. Hypokalemia, resolved. Her most recent serum potassium was 3.9. 6. Mildly elevated troponin, felt to be secondary to demand ischemia. 7. Acute on chronic systolic and diastolic congestive heart failure. Her left ventricular systolic function is severely impaired with ejection fraction of 25%. However, cardiac catheterization showed no significant coronary artery disease. She continued to lie flat and seems to be in no apparent respiratory distress. 8. Anemia without any obvious source of bleeding. 9. Her MRI showed signal abnormality within the posterior temporoparietal and occipital subcortical white matter representing a posterior reversible encephalopathy syndrome. 10. The patient has severe protein-calorie malnutrition. Serum albumin is only 2.2 g/dL. She continues to be in TPN as she is not eating. 11. Dysphagia and poor oral intake for which she is on TPN. 12. [id number] kidney injury, resolved. Her most recent serum creatinine is 1.2. PLAN: To consult the Gastroenterology to place the gastrostomy tube. Her daughter agreed, gave consent to that and hopefully once we start her on tube feeding, she can be discharged back to [facility]. FINESSE GEORGES MD DR: IRISH/shubham JOB#: [id number] / [id number]
--- NOTE | 2019-11-18 09:51 | PDOC ---
PROGRESS NOTES Assessment Hallucinations Pre-existing dementia, keep in mind the possibility of PRES and side effects of levetiracetam Seizure, no evidence of recurrence Possible posterior reversible encephalopathy syndrome, no evidence of this clinically now Having a cardiac catheterization today (11/07) Medical issues: anemia, aspiration pneumonia, resolved respiratory failure, severe hypertension, hypokalemia (resolved), elevated troponin, elevated BNP, heart failure, ejection fraction 25%, paroxysmal torsades, sinus bradycardia, anemia, peripheral artery disease, pulmonary hypertension Plan Levetiracetam, consider taper off after 3-6 months Treatment of medical problems. [facility] Discussed with daughter Subjective None Objective Vital Signs Date Time Temp Pulse Resp B/P (MAP) Pulse Ox O2 Delivery O2 Flow Rate FiO2 11/18/19 07:00 98.0 73 20 142/61 (88) 100 Nasal Cannula 3.0 98.0 Intake and Output 11/18/19 07:00 Intake Total 490 ml Output Total 1900 ml Balance -1410 ml Intake Oral 490 ml Output Urine Total 1900 ml PHYSICAL EXAM Sleepy, tells me her name and that she's in the hospital, does not know the date PERRL. EOMI. CN: no focal findings. Muscle tone: normal. Muscle strength: 4/5 DTR: 2+ Plantar reflex: flexor Gait: not examined in bed. Sensory exam: no abnormal findings. No cerebellar signs elicited. Review of Relevant I have reviewed the following items regina (where applicable) has been applied. Labs Laboratory Tests Test 11/16/19 11:42 11/16/19 17:35 11/16/19 23:33 11/17/19 05:56 Glucose (Fingerstick) 239 mg/dL (70-99) 182 mg/dL (70-99) 183 mg/dL (70-99) 190 mg/dL (70-99) Test 11/17/19 07:05 11/17/19 12:08 11/17/19 17:32 11/17/19 23:14 White Blood Count 8.6 x10^3/uL (4.0-11.0) Red Blood Count 3.13 x10^6/uL (3.50-5.40) Hemoglobin 9.4 g/dL (12.0-15.5) Hematocrit 28.2 % (36.0-47.0) Mean Corpuscular Volume 90 fL (79-100) Mean Corpuscular Hemoglobin 30 pg (25-35) Mean Corpuscular Hemoglobin Concent 34 g/dL (31-37) Red Cell Distribution Width 17.4 % (11.5-14.5) Platelet Count 210 x10^3/uL (140-400) Sodium Level 138 mmol/L (136-145) Potassium Level 3.2 mmol/L (3.5-5.1) Chloride Level 100 mmol/L (98-107) Carbon Dioxide Level 31 mmol/L (21-32) Anion Gap 7 (6-14) Blood Urea Nitrogen 32 mg/dL (7-20) Creatinine 1.1 mg/dL (0.6-1.0) Estimated GFR (Cockcroft-Gault) 47.8 Glucose Level 190 mg/dL (70-99) Calcium Level 8.4 mg/dL (8.5-10.1) Glucose (Fingerstick) 228 mg/dL (70-99) 163 mg/dL (70-99) 156 mg/dL (70-99) Test 11/18/19 05:14 Sodium Level 140 mmol/L (136-145) Potassium Level 3.9 mmol/L (3.5-5.1) Chloride Level 102 mmol/L (98-107) Carbon Dioxide Level 32 mmol/L (21-32) Anion Gap 6 (6-14) Blood Urea Nitrogen 30 mg/dL (7-20) Creatinine 1.2 mg/dL (0.6-1.0) Estimated GFR (Cockcroft-Gault) 43.2 Glucose Level 178 mg/dL (70-99) Calcium Level 8.4 mg/dL (8.5-10.1) Laboratory Tests Test 11/17/19 12:08 11/17/19 17:32 11/17/19 23:14 11/18/19 05:14 Glucose (Fingerstick) 228 mg/dL (70-99) 163 mg/dL (70-99) 156 mg/dL (70-99) Sodium Level 140 mmol/L (136-145) Potassium Level 3.9 mmol/L (3.5-5.1) Chloride Level 102 mmol/L (98-107) Carbon Dioxide Level 32 mmol/L (21-32) Anion Gap 6 (6-14) Blood Urea Nitrogen 30 mg/dL (7-20) Creatinine 1.2 mg/dL (0.6-1.0) Estimated GFR (Cockcroft-Gault) 43.2 Glucose Level 178 mg/dL (70-99) Calcium Level 8.4 mg/dL (8.5-10.1) Medications Current Medications Fentanyl Citrate 30 ml @ 0 mls/hr CONT PRN IV SEE PROTOCOL; Start 11/02/19 at 02:45; Status Cancel Propofol 100 ml @ 0 mls/hr CONT PRN IV SEE PROTOCOL; Start 11/02/19 at 02:45; Status Cancel Fentanyl Citrate (Fentanyl 2ml Vial) 25 mcg PRN Q1HR PRN IV SEE COMMENTS; Start 11/02/19 at 02:45; Status Cancel Fentanyl Citrate (Fentanyl 2ml Vial) 50 mcg PRN Q1HR PRN IV SEE COMMENTS; Start 11/02/19 at 02:45; Status Cancel Chlorhexidine Gluconate (Peridex) 15 ml BID MM ; Start 11/02/19 at 09:00; Status Cancel Morphine Sulfate (Morphine Sulfate) 2 mg PRN Q1HR PRN IV SEE COMMENTS.; Start 11/02/19 at 02:45; Status Cancel Morphine Sulfate (Morphine Sulfate) 4 mg PRN Q1HR PRN IV SEE COMMENTS.; Start 11/02/19 at 02:45; Status Cancel Midazolam HCl 100 ml @ 0 mls/hr CONT PRN IV SEE PROTOCOL; Start 11/02/19 at 02:45; Status Cancel Diphenhydramine HCl (Benadryl) 25 mg PRN Q15MIN PRN IVP EPS Symptoms; Start 11/02/19 at 02:45; Status Cancel Nicardipine HCl 50 mg/Sodium Chloride 250 ml @ 25 mls/hr CONT PRN IV SEE I/O RECORD Last administered on 11/02/19at 16:45; Start 11/02/19 at 03:15 Propofol 100 ml @ As Directed STK-MED ONCE IV ; Start 11/02/19 at 02:49; Stop 11/02/19 at 03:22; Status DC Propofol 100 ml @ 0 mls/hr CONT PRN IV SEE PROTOCOL Last administered on 11/03/19at 11:18; Start 11/02/19 at 03:30; Stop 11/03/19 at 13:54; Status DC Fentanyl Citrate (Fentanyl 2ml Vial) 25 mcg PRN Q1HR PRN IV SEE COMMENTS; Start 11/02/19 at 03:30; Stop 11/06/19 at 10:08; Status DC Fentanyl Citrate (Fentanyl 2ml Vial) 50 mcg PRN Q1HR PRN IV SEE COMMENTS; Start 11/02/19 at 03:30; Stop 11/06/19 at 10:08; Status DC Chlorhexidine Gluconate (Peridex) 15 ml BID MM Last administered on 11/05/19at 08:54; Start 11/02/19 at 09:00; Stop 11/06/19 at 10:08; Status DC Famotidine (Pepcid Vial) 20 mg DAILY IVP Last administered on 11/07/19at 08:39; Start 11/02/19 at 09:00; Stop 11/08/19 at 09:56; Status DC Morphine Sulfate (Morphine Sulfate) 2 mg PRN Q1HR PRN IV SEE COMMENTS. Last administered on 11/04/19at 17:55; Start 11/02/19 at 03:30; Stop 11/15/19 at 13:58; Status DC Morphine Sulfate (Morphine Sulfate) 4 mg PRN Q1HR PRN IV SEE COMMENTS. Last administered on 11/07/19at 05:18; Start 11/02/19 at 03:30; Stop 11/15/19 at 13:59; Status DC Potassium Bicarbonate (Potassium Effervescent Tablet) 40 meq 1X ONCE PEG Last administered on 11/02/19at 08:38; Start 11/02/19 at 07:30; Stop 11/02/19 at 07:31; Status DC Potassium Bicarbonate (Potassium Effervescent Tablet) 40 meq 1X ONCE PEG Last administered on 11/02/19at 10:02; Start 11/02/19 at 08:00; Stop 11/02/19 at 08:01; Status DC Potassium Bicarbonate (Potassium Effervescent Tablet) 40 meq 1X ONCE PEG Last administered on 11/02/19at 10:41; Start 11/02/19 at 09:00; Stop 11/02/19 at 09:01; Status DC Magnesium Sulfate 50 ml @ 25 mls/hr 1X ONCE IV Last administered on 11/02/19at 08:37; Start 11/02/19 at 07:30; Stop 11/02/19 at 09:29; Status DC Famotidine (Pepcid Vial) 20 mg DAILY IVP ; Start 11/02/19 at 09:00; Status UNV Ceftriaxone Sodium (Rocephin) 1 gm Q24H IVP Last administered on 11/04/19 08:46; Start 11/02/19 at 09:00; Stop 11/04/19 at 15:04; Status DC Levetiracetam 1000 mg/Dextrose 110 ml @ 440 mls/hr Q12HR IV Last administered on 11/03/19 09:13; Start 11/02/19 at 11:00; Stop 11/03/19 at 09:32; Status DC Acetaminophen (Tylenol) 650 mg PRN Q6HRS PRN PO PAIN Last administered on 11/16/19 23:48; Start 11/02/19 at 10:15 Atorvastatin Calcium (Lipitor) 10 mg QHS PO Last administered on 11/17/19 22:47; Start 11/02/19 at 21:00 Carvedilol (Coreg) 3.125 mg BIDWMEALS PO Last administered on 11/03/19 08:02; Start 11/02/19 at 11:00; Stop 11/07/19 at 12:02; Status DC Cetirizine HCl (ZyrTEC) 10 mg DAILY PO Last administered on 11/17/19 08:56; Start 11/02/19 at 11:00 Citalopram Hydrobromide (CeleXA) 15 mg DAILY PO Last administered on 11/03/19 09:14; Start 11/02/19 at 11:00; Stop 11/03/19 at 13:50; Status DC Clopidogrel Bisulfate (Plavix) 75 mg DAILY PO Last administered on 11/05/19 08:53; Start 11/02/19 at 11:00; Stop 11/05/19 at 15:30; Status DC Diclofenac Sodium (Voltaren) 1 carlos BID PRN TP BREAKTHROUGH PAIN; Start 11/02/19 at 10:15 Furosemide (Lasix) 20 mg QEVNG PO Last administered on 11/04/19 17:54; Start 11/02/19 at 18:00; Stop 11/07/19 at 11:59; Status DC Furosemide (Lasix) 40 mg QAM PO Last administered on 6/23/20at 08:54; Start 11/02/19 at 11:00; Stop 11/07/19 at 11:59; Status DC Albuterol Sulfate (Ventolin Neb Soln) 2.5 mg PRN Q4HRS PRN NEB SHORTNESS OF BREATH Last administered on 11/07/19at 20:16; Start 11/02/19 at 10:30 Latanoprost (Xalatan) 1 drop QHS OU Last administered on 11/17/19at 22:39; Start 11/02/19 at 21:00 Lidocaine (Lidoderm) 1 patch PRN DAILY PRN TP PAIN; Start 11/02/19 at 09:00 Pantoprazole Sodium (Protonix) 20 mg DAILYAC PO ; Start 11/03/19 at 07:30; Status UNV Phenol (Chloraseptic) 1 spray PRN Q6HRS PRN MM SORE THROAT; Start 11/02/19 at 10:15 Piperacillin Sod/ Tazobactam Sod 3.375 gm/Sodium Chloride 50 ml @ 100 mls/hr Q6HRS IV Last administered on 11/18/19at 06:59; Start 11/02/19 at 11:00 Vancomycin HCl (Vanco Per Pharmacy) 1 each PRN DAILY PRN MC SEE COMMENTS Last administered on 11/17/19at 14:01; Start 11/02/19 at 10:30 Vancomycin HCl 1 gm/Sodium Chloride 250 ml @ 250 mls/hr Q24H IV Last administered on 11/03/19at 22:57; Start 11/02/19 at 22:00; Stop 11/04/19 at 07:00; Status DC Vancomycin HCl (Vancomycin Trough Level) 1 each 1X ONCE MC Last administered on 11/03/19at 21:30; Start 11/03/19 at 21:30; Stop 11/03/19 at 21:31; Status DC Levetiracetam 500 mg/Dextrose 105 ml @ 420 mls/hr Q12HR IV Last administered on 11/07/19at 08:38; Start 11/03/19 at 21:00; Stop 11/07/19 at 13:16; Status DC Magnesium Sulfate 50 ml @ 25 mls/hr 1X ONCE IV Last administered on 11/03/19at 13:33; Start 11/03/19 at 12:00; Stop 11/03/19 at 13:59; Status DC Sertraline HCl (Zoloft) 50 mg DAILY PO Last administered on 11/17/19at 08:56; Start 11/04/19 at 09:00 Losartan Potassium (Cozaar) 25 mg DAILY NG Last administered on 11/05/19at 08:54; Start 11/03/19 at 14:00; Stop 11/05/19 at 09:40; Status DC Dexmedetomidine HCl 400 mcg/ Sodium Chloride 100 ml @ 0 mls/hr CONT PRN IV PER PROTOCOL Last administered on 11/05/19at 02:05; Start 11/03/19 at 14:00; Stop 11/06/19 at 10:08; Status DC Sodium Chloride 500 ml @ 500 mls/hr 1X PRN PRN IV SEE COMMENTS; Start 11/03/19 at 14:00 Atropine Sulfate (ATROPINE 0.5mg SYRINGE) 0.5 mg PRN Q5MIN PRN IV SEE COMMENTS; Start 11/03/19 at 14:00; Stop 11/07/19 at 12:28; Status DC Vancomycin HCl 1 gm/Sodium Chloride 250 ml @ 250 mls/hr Q18H IV Last administered on 11/11/19at 10:51; Start 11/04/19 at 17:00; Stop 11/12/19 at 06:10; Status DC Vancomycin HCl (Vancomycin Trough Level) 1 each 1X ONCE MC Last administered on 11/06/19at 04:30; Start 11/06/19 at 04:30; Stop 11/06/19 at 04:31; Status DC Losartan Potassium (Cozaar) 50 mg DAILY NG Last administered on 11/08/19at 11:05; Start 11/05/19 at 09:45; Stop 11/08/19 at 14:57; Status DC Epinephrine (S2 Racepinephrine) 0.5 ml 1X ONCE NEB Last administered on 11/05/19at 12:00; Start 11/05/19 at 12:00; Stop 11/05/19 at 12:01; Status DC Methylprednisolone Sodium Succinate (SOLU-Medrol 125MG VIAL) 100 mg 1X ONCE IV Last administered on 11/05/19at 12:15; Start 11/05/19 at 12:00; Stop 11/05/19 at 12:01; Status DC Furosemide (Lasix) 20 mg 1X STAT IVP Last administered on 11/05/19at 12:14; Start 11/05/19 at 12:08; Stop 11/05/19 at 12:12; Status DC Furosemide (Lasix) 20 mg 1X ONCE IVP Last administered on 11/05/19at 14:26; Start 11/05/19 at 14:15; Stop 11/05/19 at 14:16; Status DC Clopidogrel Bisulfate (Plavix) 75 mg DAILY PO Last administered on 11/17/19at 08:57; Start 11/07/19 at 11:00 Metoprolol Tartrate (Lopressor Vial) 5 mg ONCE ONCE IVP Last administered on 11/05/19at 23:56; Start 11/06/19 at 00:00; Stop 11/06/19 at 00:01; Status DC Potassium Chloride (Klor-Con) 40 meq 1X PRN PRN PO PER PROTOCOL; Start 11/05/19 at 23:45 Potassium Bicarbonate (Potassium Effervescent Tablet) 40 meq 1X PRN PRN PO PER PROTOCOL; Start 11/05/19 at 23:45 Potassium Chloride/Water 100 ml @ 100 mls/hr PRN Q1HR PRN IV PER PROTOCOL Last administered on 11/06/19at 06:03; Start 11/05/19 at 23:45; Stop 11/06/19 at 06:11; Status DC Potassium Chloride/Water 100 ml @ 100 mls/hr PRN Q1HR PRN IV PER PROTOCOL; Start 11/05/19 at 23:45 Potassium Chloride (Klor-Con) 40 meq PRN Q2HRS PRN PO PER PROTOCOL; Start 11/05/19 at 23:45 Potassium Chloride/Water 100 ml @ 100 mls/hr PRN Q1HR PRN IV PER PROTOCOL; Start 11/05/19 at 23:45 Potassium Chloride/Water 100 ml @ 100 mls/hr PRN Q1HR PRN IV PER PROTOCOL; Start 11/05/19 at 23:45; Stop 11/06/19 at 07:44; Status DC Potassium Chloride (Klor-Con) 40 meq PRN Q2HRS PRN PO PER PROTOCOL; Start 11/05/19 at 23:45 Potassium Chloride/Water 100 ml @ 100 mls/hr PRN Q1HR PRN IV PER PROTOCOL; Start 11/05/19 at 23:45 Potassium Chloride/Water 100 ml @ 100 mls/hr PRN Q1HR PRN IV PER PROTOCOL; Start 11/06/19 at 00:01; Stop 11/06/19 at 07:44; Status DC Magnesium Sulfate 100 ml @ 50 mls/hr PRN DAILY PRN IV PER PROTOCOL; Start 11/06/19 at 00:00 Potassium Phos/ Sodium Phos (Phos-Nak) 1 pkt PRN BID PRN PO PER PROTOCOL; Start 11/06/19 at 09:00 Sodium Phosphate 40 mmol/Sodium Chloride 263.3333 ml @ 62.5 mls/hr 1X PRN PRN IV PER PROTOCOL; Start 11/05/19 at 23:45 Potassium Phosphate 13.6 mmol/Sodium Chloride 254.5333 ml @ 62.5 mls/hr PRN Q4HR S PRN IV PER PROTOCOL; Start 11/05/19 at 23:45 Magnesium Sulfate 50 ml @ 25 mls/hr 1X ONCE IV Last administered on 11/06/19at 00:31; Start 11/06/19 at 01:00; Stop 11/06/19 at 02:59; Status DC Metoprolol Tartrate (Lopressor Vial) 5 mg 1X ONCE IVP Last administered on 11/06/19at 01:52; Start 11/06/19 at 02:00; Stop 11/06/19 at 02:01; Status DC Miscellaneous (Lidoderm Patch Removal) 1 ea PRN QHS PRN MC SEE COMMENTS; Start 11/06/19 at 08:00 Metoprolol Tartrate (Lopressor Vial) 5 mg Q6HRS IVP Last administered on 11/07/19at 05:21; Start 11/06/19 at 12:00; Stop 11/07/19 at 11:59; Status DC Cyanocobalamin (Vitamin B-12) 1,000 mcg DAILY IM Last administered on 11/17/19at 08:57; Start 11/06/19 at 14:30 Furosemide (Lasix) 40 mg 1X ONCE IVP Last administered on 11/06/19at 17:35; Start 11/06/19 at 17:30; Stop 11/06/19 at 17:31; Status DC Amino Acids/ Glycerin/ Electrolytes 1,000 ml @ 80 mls/hr [id number] IV Last administered on 11/17/19at 13:18; Start 11/07/19 at 10:15 Metoprolol Succinate (Toprol Xl) 50 mg DAILY PO Last administered on 11/13/19at 07:40; Start 11/08/19 at 09:00; Stop 11/13/19 at 11:49; Status DC Furosemide (Lasix) 40 mg DAILY PO Last administered on 11/13/19at 07:41; Start 11/08/19 at 09:00; Stop 11/13/19 at 08:19; Status DC Lactobacillus Rhamnosus (Culturelle) 1 cap BID PO Last administered on 11/17/19at 22:47; Start 11/07/19 at 21:00 Levetiracetam (Keppra) 500 mg BID PO Last administered on 11/17/19at 22:45; Start 11/07/19 at 21:00 Furosemide (Lasix) 40 mg 1X ONCE IVP Last administered on 11/07/19at 21:55; Start 11/07/19 at 21:45; Stop 11/07/19 at 21:46; Status DC Cyanocobalamin (Vitamin B-12) 1,000 mcg 1X ONCE IM ; Start 11/08/19 at 08:30; Stop 11/08/19 at 08:31; Status DC Potassium Chloride (Klor-Con) 40 meq 1X ONCE PO ; Start 11/08/19 at 09:30; Stop 11/08/19 at 09:31; Status Cancel Furosemide (Lasix) 40 mg 1X ONCE IVP Last administered on 11/08/19at 17:56; Start 11/08/19 at 09:30; Stop 11/08/19 at 09:33; Status DC Pantoprazole Sodium (Protonix) 40 mg DAILYAC PO Last administered on 11/13/19at 07:41; Start 11/09/19 at 07:30; Stop 11/13/19 at 10:25; Status DC Potassium Chloride (Klor-Con) 40 meq 1X ONCE PO Last administered on 11/08/19at 11:31; Start 11/08/19 at 10:45; Stop 11/08/19 at 10:46; Status DC Potassium Chloride (Klor-Con) 40 meq 1X ONCE PO Last administered on 11/08/19at 17:56; Start 11/08/19 at 12:30; Stop 11/08/19 at 12:31; Status DC Potassium Chloride (Klor-Con) 40 meq 1X ONCE PO ; Start 11/08/19 at 11:15; Stop 11/08/19 at 11:16; Status DC Sacubitril/ Valsartan (Entresto 24 Mg-26 Mg) 1 tab BID PO Last administered on 11/17/19at 22:46; Start 11/10/19 at 09:00 Labetalol HCl (Normodyne Iv Push) 20 mg PRN Q2HR PRN IVP HYPERTENSION Last administered on 11/13/19at 03:18; Start 11/11/19 at 00:30 Vancomycin HCl (Vancomycin Trough Level) 1 each 1X ONCE MC Last administered on 11/12/19at 04:30; Start 11/12/19 at 04:30; Stop 11/12/19 at 04:31; Status DC Prednisone (Prednisone) 40 mg 1X ONCE PO Last administered on 11/11/19at 18:01; Start 11/11/19 at 17:30; Stop 11/11/19 at 17:33; Status DC Prednisone (Prednisone) 40 mg 1X ONCE PO Last administered on 11/11/19at 23:25; Start 11/11/19 at 23:00; Stop 11/11/19 at 23:01; Status DC Prednisone (Prednisone) 40 mg 1X ONCE PO Last administered on 11/12/19at 06:10; Start 11/12/19 at 07:00; Stop 11/12/19 at 07:01; Status DC Vancomycin HCl (Vancomycin Random Level) 1 each 1X ONCE MC ; Start 11/13/19 at 05:00; Stop 11/13/19 at 05:43; Status DC Methylprednisolone Sodium Succinate (SOLU-Medrol 125MG VIAL) 125 mg 1X ONCE IV Last administered on 11/12/19at 12:07; Start 11/12/19 at 10:45; Stop 11/12/19 at 10:46; Status DC Diphenhydramine HCl (Benadryl) 25 mg 1X ONCE IVP Last administered on 11/12/19at 12:39; Start 11/12/19 at 10:45; Stop 11/12/19 at 10:46; Status DC Famotidine (Pepcid Vial) 20 mg 1X ONCE IVP Last administered on 11/12/19at 12:07; Start 11/12/19 at 10:45; Stop 11/12/19 at 10:46; Status DC Lidocaine HCl (Lidocaine 1% 20ml Vial) 20 ml STK-MED ONCE .ROUTE ; Start 11/12/19 at 12:42; Stop 11/12/19 at 12:43; Status DC Iodixanol (Visipaque 320) 100 ml STK-MED ONCE .ROUTE ; Start 11/12/19 at 12:43; Stop 11/12/19 at 12:43; Status DC Heparin Sodium/ Sodium Chloride 1,000 ml @ As Directed STK-MED ONCE .ROUTE ; Start 11/12/19 at 12:43; Stop 11/12/19 at 12:43; Status DC Fentanyl Citrate (Fentanyl 2ml Vial) 100 mcg STK-MED ONCE .ROUTE ; Start 11/12/19 at 12:44; Stop 11/12/19 at 12:44; Status DC Midazolam HCl (Versed) 2 mg STK-MED ONCE .ROUTE ; Start 11/12/19 at 12:44; Stop 11/12/19 at 12:45; Status DC Heparin Sodium (Porcine) (Heparin Sodium) 10,000 unit STK-MED ONCE .ROUTE ; Start 11/12/19 at 12:44; Stop 11/12/19 at 12:45; Status DC Verapamil HCl (Verapamil) 5 mg STK-MED ONCE .ROUTE ; Start 11/12/19 at 12:44; Stop 11/12/19 at 12:45; Status DC Nitroglycerin (Nitroglycerin) 200 mcg STK-MED ONCE .ROUTE ; Start 11/12/19 at 12:44; Stop 11/12/19 at 12:45; Status DC Nitroglycerin (Nitroglycerin) 200 mcg 1X ONCE IART Last administered on 11/12/19at 13:59; Start 11/12/19 at 13:45; Stop 11/12/19 at 13:49; Status DC Verapamil HCl (Verapamil) 2.5 mg 1X ONCE IART Last administered on 11/12/19at 13:59; Start 11/12/19 at 13:45; Stop 11/12/19 at 13:49; Status DC Heparin Sodium (Porcine) (Heparin Sodium) 2,500 unit 1X ONCE IART Last administered on 11/12/19at 13:58; Start 11/12/19 at 13:45; Stop 11/12/19 at 1 3:49; Status DC Heparin Sodium/ Sodium Chloride (HEPARIN for ARTERIAL LINE FLUSH) 1,000 unit 1X ONCE IART Last administered on 11/12/19at 13:57; Start 11/12/19 at 13:45; Stop 11/12/19 at 13:49; Status DC Heparin Sodium/ Sodium Chloride (HEPARIN for ARTERIAL LINE FLUSH) 1,000 unit 1X ONCE IART Last administered on 11/12/19at 13:57; Start 11/12/19 at 13:45; Stop 11/12/19 at 13:49; Status DC Fentanyl Citrate (Fentanyl 2ml Vial) 100 mcg 1X ONCE IV Last administered on 11/12/19at 14:00; Start 11/12/19 at 13:45; Stop 11/12/19 at 13:49; Status DC Iodixanol (Visipaque 320) 100 ml 1X ONCE IART Last administered on 11/12/19at 13:58; Start 11/12/19 at 13:45; Stop 11/12/19 at 13:50; Status DC Lidocaine HCl (Lidocaine 1% 20ml Vial) 20 ml 1X ONCE INJ Last administered on 11/12/19at 13:58; Start 11/12/19 at 13:45; Stop 11/12/19 at 13:49; Status DC Hydralazine HCl (Apresoline Inj) 10 mg PRN Q4HRS PRN IVP ELEVATED BP, SEE COMMENTS Last administered on 11/13/19at 14:59; Start 11/12/19 at 14:30 Furosemide (Lasix) 40 mg 1X ONCE IVP Last administered on 11/12/19at 16:22; Start 11/12/19 at 16:00; Stop 11/12/19 at 16:01; Status DC Vancomycin HCl (Vanco Per Pharmacy) 1 each 1X STAT MC ; Start 11/13/19 at 05:30; Stop 11/13/19 at 05:31; Status UNV Vancomycin HCl (Vancomycin Random Level) 1 each 1X ONCE MC ; Start 11/13/19 at 17:00; Stop 11/13/19 at 17:01; Status DC Furosemide (Lasix) 40 mg DAILY IVP Last administered on 11/17/19at 08:58; Start 11/13/19 at 09:00 Insulin Human Lispro (HumaLOG) 0-7 UNITS TIDWMEALS SQ ; Start 11/13/19 at 09:00; Stop 11/13/19 at 09:01; Status DC Dextrose (Dextrose 50%-Water Syringe) 12.5 gm PRN Q15MIN PRN IV SEE COMMENTS; Start 11/13/19 at 09:00 Insulin Human Lispro (HumaLOG) 0-7 UNITS Q6HRS SQ Last administered on 11/13/19at 09:56; Start 11/13/19 at 09:00; Stop 11/13/19 at 11:47; Status DC Lansoprazole (Prevacid) 30 mg DAILY PO Last administered on 11/17/19at 08:56; Start 11/14/19 at 09:00 Info (Icu Electrolyte Protocol) 1 ea CONT PRN PRN MC PER PROTOCOL; Start 11/13/19 at 11:00; Stop 11/13/19 at 10:49; Status DC Info (Non-Icu Electrolyte Protocol) 1 ea CONT PRN PRN MC SEE COMMENTS; Start 11/13/19 at 11:00 Potassium Chloride/Water 100 ml @ 100 mls/hr Q1H IV Last administered on 11/13/19at 14:59; Start 11/13/19 at 11:30; Stop 11/13/19 at 15:29; Status DC Insulin Human Lispro (HumaLOG) 0-9 UNITS Q6HRS SQ Last administered on 11/17/19at 13:24; Start 11/13/19 at 12:00 Metoprolol Tartrate (Lopressor) 50 mg BID PO Last administered on 11/17/19at 22:47; Start 11/13/19 at 21:00 Vancomycin HCl 1 gm/Sodium Chloride 250 ml @ 250 mls/hr Q48H IV Last administered on 11/17/19at 18:42; Start 11/13/19 at 19:00 Furosemide (Lasix) 40 mg 1X ONCE IVP Last administered on 11/14/19at 15:31; Start 11/14/19 at 15:00; Stop 11/14/19 at 15:01; Status DC Potassium Bicarbonate (Potassium Effervescent Tablet) 20 meq DAILY PEG Last administered on 11/16/19at 09:36; Start 11/15/19 at 09:00; Stop 11/17/19 at 08:11; Status DC Hydralazine HCl (Apresoline) 25 mg TID PO Last administered on 11/16/19at 09:26; Start 11/14/19 at 14:00; Stop 11/16/19 at 09:53; Status DC Hydralazine HCl (Apresoline) 50 mg TID PO Last administered on 11/17/19at 22:46; Start 11/16/19 at 14:00 Potassium Bicarbonate (Potassium Effervescent Tablet) 20 meq TID PEG Last administered on 11/17/19at 22:48; Start 11/17/19 at 09:00 Active Scripts Active Reported Januvia (Sitagliptin Phosphate) 100 Mg Tablet 1 Tab PO DAILY Pantoprazole Sodium (Pantoprazole Sodium) 40 Mg Tablet. 20 Mg PO DAILYAC Glimepiride 1 Mg Tablet 1 Tab PO DAILY Hydrocodone-Apap 5-325 (Hydrocodone Bit/Acetaminophen) 1 Tab Tablet 1 Tab PO PRN Q6HRS PRN Lisinopril 10 Mg Tablet 1 Tab PO DAILY Acetaminophen 500 Mg Tablet 1 Tab PO BID Trazodone Hcl 50 Mg Tablet 0.5 Tab PO QHS Omeprazole 20 Mg Capsule. 1 Cap PO DAILY Novolog (Insulin Aspart) 100 Unit/1 Ml Cartridge 100 Unit SQ QIDACHS Naproxen 500 Mg Tablet 1 Tab PO PRN Q8HRS PRN Lidocaine PATCH (Lidocaine) 1 Each Adh..patch 1 Each TP DAILY REMOVE AFTER 12 HOURS Latanoprost 2.5 Ml Drops 1 Drop EACHEYE QHS Duoneb 0.5-3(2.5) Mg/3 Ml (Albuterol/Ipratropium) 3 Ml Ampul.neb 3 Ml NEB PRN Q4HRS PRN Imodium A-D (Loperamide HCl) 2 Mg Capsule 2 Mg PO PRN PRN Flonase Allergy Relief (Fluticasone Propionate) 9.9 Ml [place].susp 1 Sprays NS PRN Q12HRS PRN Coreg (Carvedilol) 3.125 Mg Tablet 3.125 Mg PO BIDWMEALS Chloraseptic (Phenol) 20 Ml [place] 1 [place] MM PRN Q6HRS PRN Calcium Citrate 250 Mg Tablet 500 Mg PO DAILY Tylenol (Acetaminophen) 325 Mg Tablet 2 Tab PO PRN Q6HRS PRN Atorvastatin Calcium 10 Mg Tablet 1 Tab PO QHS Proair Respiclick (Albuterol Sulfate) 90 Mcg Aer.pow.ba 1 Puff IH PRN Q6HRS PRN Alendronate Sodium 70 Mg Tablet 1 Tab PO WEEKLY Citalopram Hbr (Citalopram Hydrobromide) 10 Mg Tablet 1.5 Tab PO DAILY Cetirizine Hcl 10 Mg Tablet 1 Tab PO DAILY Guaifenesin 600 Mg Tablet.er 600 Mg PO PRN Q8HRS PRN Clopidogrel (Clopidogrel Bisulfate) 75 Mg Tablet 1 Tab PO DAILY Novolog Flexpen (Insulin Aspart) 100 Unit/1 Ml Insuln.pen 0-3 Unit SQ QIDACHS PATIENT SLIDING SCALE. 70-249= 0 UNITS. 250-400= 3UNITS. BEFORE MEALS AND AT BEDTIME GIVE 3 UNITS IF BLOOD SUGAR 250 OR ABOVE. Diclofenac Sodium 100 Gm Gel..gram. 1 [place] TP DAILY D3-50 (Cholecalciferol (Vitamin D3)) 50,000 Unit Capsule 50,000 Unit PO DAILY Trazodone Hcl 50 Mg Tablet 0.5 Tab PO QHS Reglan (Metoclopramide Hcl) 5 Mg Tablet 5 Mg PO DAILY Protonix (Pantoprazole Sodium) 20 Mg Tablet.dr 1 Tab PO DAILY [place] 5-325 Tablet (Hydrocodone Bit/Acetaminophen) 1 Each Tablet 1 Tab PO Q4HRS Naproxen 500 Mg Tablet 1 Tab PO Q8HRS Lisinopril 2.5 Mg Tablet 1 Tab PO DAILY Lidocaine PATCH (Lidocaine) 1 Each Adh..patch 1 Each TP DAILY REMOVE AFTER 12 HOURS Lasix (Furosemide) 20 Mg Tablet 1 Tab PO DAILY 30 Days Duoneb 0.5-3(2.5) Mg/3 Ml (Albuterol/Ipratropium) 3 Ml Ampul.neb 3 Ml NEB QID Imodium A-D (Loperamide HCl) 2 Mg Capsule 2 Mg PO DAILY Guaifenesin 400 Mg Tablet 400 Mg PO Q8HRS Coreg (Carvedilol) 3.125 Mg Tablet 3.125 Mg PO BID Clopidogrel (Clopidogrel Bisulfate) 75 Mg Tablet 75 Mg PO DAILY Citalopram Hbr (Citalopram Hydrobromide) 10 Mg Tablet 10 Mg PO DAILY Atorvastatin Calcium 10 Mg Tablet 10 Mg PO DAILY Proair Hfa Inhaler (Albuterol Sulfate) 8.5 Gm Hfa.aer.ad 1 Puff INH PRN Q6HRS Acetaminophen 500 Mg Tablet 1 Tab PO PRN Q6HRS Glimepiride 1 Mg Tablet 1 Mg PO DAILY Simvastatin 40 Mg Tablet 40 Mg PO HS Omeprazole 20 Mg Capsule.dr 20 Mg PO DAILY Januvia (Sitagliptin Phosphate) 100 Mg Tablet 100 Mg PO DAILY Vitals/I & O Vital Sign - Last 24 Hours 11/17/19 11/17/19 11/17/19 11/17/19 11:00 14:04 15:26 19:30 Temp 97.9 98.2 98.0 97.9 98.2 98.0 Pulse 68 68 77 77 Resp 18 18 20 B/P (MAP) 130/65 (86) 130/65 137/55 (82) 152/61 (91) Pulse Ox 98 99 100 O2 Delivery Nasal Cannula Nasal Cannula Nasal Cannula O2 Flow Rate 3.0 3.0 3.0 11/17/19 11/17/19 11/17/19 11/17/19 20:00 22:46 22:46 22:47 Pulse 77 77 77 B/P (MAP) 152/61 152/61 152/61 O2 Delivery Nasal Cannula O2 Flow Rate 3.0 11/17/19 11/18/19 11/18/19 11/18/19 23:00 03:20 04:16 07:00 Temp 97.0 98.2 98.2 98.0 97.0 98.2 98.2 98.0 Pulse 72 75 77 73 Resp 20 18 16 20 B/P (MAP) 145/61 (89) 124/69 (87) 124/69 (87) 142/61 (88) Pulse Ox 100 100 100 100 O2 Delivery Nasal Cannula Nasal Cannula Nasal Cannula Nasal Cannula O2 Flow Rate 3.0 3.0 3.0 3.0 Intake and Output 11/17/19 11/17/19 11/18/19 15:00 23:00 07:00 Intake Total 220 ml 150 ml 120 ml Output Total 1500 ml 400 ml Balance 220 ml -1350 ml -280 ml Justicifation of Admission Dx: Justifications for Admission: Justification of Admission Dx: Yes Respiratory Failure: Mechanical Ventilation Altered Mental Status: Altered Mental Status FERNANDO TOSCANO MD Nov 18, 2019 09:51
[2019-11-18] MEDS: AMINO AC 3%/ELECTROLYTE/GLYCER 1,000 ML IV SCH ×2 (11:08→19:26)
[2019-11-18] MEDS: SERTRALINE 50 MG TABLET. PO SCH (11:10)
[2019-11-18] MEDS: CLOPIDOGREL BISULFATE 75 MG TABLET PO SCH (11:11)
[2019-11-18] MEDS: CETIRIZINE HCL 10 MG TABLET. PO SCH (11:11)
[2019-11-18] MEDS: LACTOBACILLUS RHAMNOSUS GG 1 CAPSULE. PO SCH ×2 (11:11→21:01)
[2019-11-18] MEDS: LANSOPRAZOLE 30 MG TAB.RAP.DR PO SCH (11:12)
[2019-11-18] MEDS: SACUBITRIL/VALSARTAN 24/26MG TABLET. PO SCH ×2 (11:12→21:01)
[2019-11-18] MEDS: levETIRAcetam 500 MG TABLET PO SCH ×2 (11:12→21:01)
[2019-11-18] MEDS: METOPROLOL TART IMMED RELEASE 50 MG TABLET. PO SCH ×2 (11:12→21:01)
[2019-11-18] MEDS: CYANOCOBALAMIN (VITAMIN B-12) 1,000 MCG/ML VIAL IM SCH (11:18)
[2019-11-18] MEDS: FUROSEMIDE 40 MG/4 ML VIAL. IVP SCH (11:23)
--- NOTE | 2019-11-18 12:38 | PDOC ---
Subjective: Subjective: Daughter present. I asked if there was a reason she isn't eating - she says she doesn't want the food. Objective: Objective: Nurse says she needs a PEG because she won't eat. Vital Signs: Vital Signs Date Time Temp Pulse Resp B/P (MAP) Pulse Ox O2 Delivery O2 Flow Rate FiO2 11/18/19 11:12 72 153/70 11/18/19 11:07 97.7 20 98 Nasal Cannula 3.0 97.7 Labs: Laboratory Tests Test 11/17/19 17:32 11/17/19 23:14 11/18/19 11:23 Glucose (Fingerstick) 163 mg/dL (70-99) 156 mg/dL (70-99) 216 mg/dL (70-99) Please see additional in EMR - Vibrynt not loading complete labs into my note. Imaging: KUB 11/13 IMPRESSION: 1. Nonobstructive nonspecific bowel gas pattern. PE: GEN: appears chronically ill - staff present administering meds, brushing hair - pt holding daughter's hand LUNGS: NC 3L HEART: RRR ABD: soft NEURO/PSYCH: responds more than last week, seems upset A/P: CHF, resp failure, encephalopathy, dysphagia Normocytic anemia, B12 deficiency - stable on replacement -- Seen this morning when [employer] unavailable Doesn't want dysphagia diet - wants [place] fries. Discussed usual indications for PEG and procedure w/ possible risks. Pt says she does not want a feeding tube. She and daughter will discuss. Continue PPI. Will review all w/ Dr. Nagel. Justicifation of Admission Dx: Justifications for Admission: Justification of Admission Dx: Yes Respiratory Failure: Mechanical Ventilation Altered Mental Status: Altered Mental Status MARKOS PATINO Nov 18, 2019 12:38
--- NOTE | 2019-11-18 14:30 | NUR ---
PATIENT PIV PULLED OUT ACCIDENTALLY AND REFUSED TO HAVE ANOTHER ONE PLACED.
--- NOTE | 2019-11-18 16:08 | PDOC ---
PROGRESS NOTES Subjective Subjective Comfortable, denied any chest pain or shortness of breath, continues to refuse to eat Objective Objective Vital Signs Date Time Temp Pulse Resp B/P (MAP) Pulse Ox O2 Delivery O2 Flow Rate FiO2 11/18/19 14:49 98.0 77 20 144/67 (92) 100 Nasal Cannula 3.0 98.0 Intake and Output 11/18/19 07:00 Intake Total 490 ml Output Total 1900 ml Balance -1410 ml Intake Oral 490 ml Output Urine Total 1900 ml Physical Exam Abdomen: Normal bowel sounds Heart: Regular rate Extremities: No clubbing General: mild distress HEENT: Atraumatic Lungs: Other (Mildly decreased breath sounds) Neck: Supple Psych/Mental Status: Mood NL Skin: No breakdown Assessment Assessment 1. Accelerated hypertension: Better controlled with increasing hydralazine dose 2. New onset seizure disorder with encephalopathy: on keppra, continue treatment per neurology. 3. Acute respiratory failure, multifactorial: Improved, treat per pulmonary team. COVID test negative 4. Acute on chronic diastolic/systolic heart failure: better compensated. LVEF 25% with severe pulmonary hypertension. 5. Mild troponin elevation: type 2. Continue medical management. 6. Paroxysmal Torsades: No further episodes on telemetry. Continue beta- blockers. 7. Asymptomatic SB: lowest 50s. none further, no pauses 8. Normocytic anemia, s/p transfusion. 9. Protein calorie malnutrition Plan for gastrostomy tube placement and DC to [facility] and rehab Comment Review of Relevant I have reviewed the following items regina (where applicable) has been applied. Labs Laboratory Tests Test 11/17/19 17:32 11/17/19 23:14 11/18/19 05:14 11/18/19 11:23 Glucose (Fingerstick) 163 mg/dL (70-99) 156 mg/dL (70-99) 216 mg/dL (70-99) Sodium Level 140 mmol/L (136-145) Potassium Level 3.9 mmol/L (3.5-5.1) Chloride Level 102 mmol/L (98-107) Carbon Dioxide Level 32 mmol/L (21-32) Anion Gap 6 (6-14) Blood Urea Nitrogen 30 mg/dL (7-20) Creatinine 1.2 mg/dL (0.6-1.0) Estimated GFR (Cockcroft-Gault) 43.2 Glucose Level 178 mg/dL (70-99) Calcium Level 8.4 mg/dL (8.5-10.1) Vitals/I & O Vital Sign - Last 24 Hours 11/17/19 11/17/19 11/17/19 11/17/19 19:30 20:00 22:46 22:46 Temp 98.0 98.0 Pulse 77 77 77 Resp 20 B/P (MAP) 152/61 (91) 152/61 152/61 Pulse Ox 100 O2 Delivery Nasal Cannula Nasal Cannula O2 Flow Rate 3.0 3.0 11/17/19 11/17/19 11/18/19 11/18/19 22:47 23:00 03:20 04:16 Temp 97.0 98.2 98.2 97.0 98.2 98.2 Pulse 77 72 75 77 Resp 20 18 16 B/P (MAP) 152/61 145/61 (89) 124/69 (87) 124/69 (87) Pulse Ox 100 100 100 O2 Delivery Nasal Cannula Nasal Cannula Nasal Cannula O2 Flow Rate 3.0 3.0 3.0 11/18/19 11/18/19 11/18/19 11/18/19 07:00 08:00 11:07 11:11 Temp 98.0 97.7 98.0 97.7 Pulse 73 72 72 Resp 20 20 B/P (MAP) 142/61 (88) 153/70 (97) 153/70 Pulse Ox 100 98 O2 Delivery Nasal Cannula Nasal Cannula Nasal Cannula O2 Flow Rate 3.0 3.0 3.0 11/18/19 11/18/19 11/18/19 11/18/19 11:12 11:12 14:23 14:49 Temp 98.0 98.0 Pulse 72 72 72 77 Resp 20 B/P (MAP) 153/70 153/70 153/70 144/67 (92) Pulse Ox 100 O2 Delivery Nasal Cannula O2 Flow Rate 3.0 Intake and Output 11/17/19 11/17/19 11/18/19 15:00 23:00 07:00 Intake Total 220 ml 150 ml 120 ml Output Total 1500 ml 400 ml Balance 220 ml -1350 ml -280 ml ASHELY SANCHES MD Nov 18, 2019 16:08
[2019-11-18] MEDS: LATANOPROST 0.005% OPHTH SOLUTION 2.5ML BOTTLE. OU SCH (21:00)
[2019-11-18] MEDS: ATORVASTATIN CALCIUM 10 MG TABLET. PO SCH (21:01)
[2019-11-19] MEDS: PIPERACILLIN/TAZOBACTAM 3.375 GM in IV NORMAL SALINE 50ML 50 ML IV SCH (02:55)
[2019-11-19 03:15] VITALS: BP 140/66
[2019-11-19] MEDS: INSULIN LISPRO 300 UNITS/3 ML VIAL. SQ SCH (05:51)
[2019-11-19 07:00] VITALS: BP 137/66
[2019-11-19] MEDS: LANSOPRAZOLE 30 MG TAB.RAP.DR PO SCH (08:17)
[2019-11-19] MEDS: SERTRALINE 50 MG TABLET. PO SCH (08:17)
[2019-11-19] MEDS: SACUBITRIL/VALSARTAN 24/26MG TABLET. PO SCH (08:17)
[2019-11-19] MEDS: LACTOBACILLUS RHAMNOSUS GG 1 CAPSULE. PO SCH (08:17)
[2019-11-19] MEDS: POTASSIUM BICARB 20 MEQ EFFERVESCENT TABLET. PEG SCH (08:17)
[2019-11-19] MEDS: METOPROLOL TART IMMED RELEASE 50 MG TABLET. PO SCH (08:18)
[2019-11-19] MEDS: levETIRAcetam 500 MG TABLET PO SCH (08:18)
[2019-11-19] MEDS: CETIRIZINE HCL 10 MG TABLET. PO SCH (08:18)
[2019-11-19] MEDS: CLOPIDOGREL BISULFATE 75 MG TABLET PO SCH (08:18)
[2019-11-19] MEDS: CYANOCOBALAMIN (VITAMIN B-12) 1,000 MCG/ML VIAL IM SCH (08:25)
--- NOTE | 2019-11-19 08:47 | PDOC ---
PULMONARY PROGRESS NOTES Subjective Extubated 11/04 Patient appears to be weak, no increasing shortness of breath Vitals Vital Signs Date Time Temp Pulse Resp B/P (MAP) Pulse Ox O2 Delivery O2 Flow Rate FiO2 11/19/19 08:18 73 137/66 11/19/19 07:00 97.8 18 99 Nasal Cannula 3.0 97.8 ROS: No Nausea, No Chest Pain, No Abdominal Pain, No Increase Cough General: Alert Lungs: Clear Cardiovascular: S1 Abdomen: Soft Neuro Exam: Alert Extremities: No Edema Skin: Warm Labs Laboratory Tests Test 11/17/19 12:08 11/17/19 17:32 11/17/19 23:14 11/18/19 05:14 Glucose (Fingerstick) 228 mg/dL (70-99) 163 mg/dL (70-99) 156 mg/dL (70-99) Sodium Level 140 mmol/L (136-145) Potassium Level 3.9 mmol/L (3.5-5.1) Chloride Level 102 mmol/L (98-107) Carbon Dioxide Level 32 mmol/L (21-32) Anion Gap 6 (6-14) Blood Urea Nitrogen 30 mg/dL (-) Creatinine 1.2 mg/dL (0.6-1.0) Estimated GFR (Cockcroft-Gault) 43.2 Glucose Level 178 mg/dL (70-99) Calcium Level 8.4 mg/dL (8.5-10.1) Test 11/18/19 11:23 11/18/19 18:06 11/18/19 23:17 11/19/19 05:46 Glucose (Fingerstick) 216 mg/dL (70-99) 195 mg/dL (70-99) 116 mg/dL (70-99) 136 mg/dL (70-99) Laboratory Tests Test 11/18/19 11:23 11/18/19 18:06 11/18/19 23:17 11/19/19 05:46 Glucose (Fingerstick) 216 mg/dL (70-99) 195 mg/dL (70-99) 116 mg/dL (70-99) 136 mg/dL (70-99) Medications Active Scripts Medications Dose Route/Sig Max Daily Dose Days Date Category Dose Instructions Januvia (Sitagliptin Phosphate) 100 Mg Tablet 1 Tab PO DAILY 11/02/19 Reported Pantoprazole Sodium (Pantoprazole Sodium) 40 Mg Tablet.dr 20 Mg PO DAILYAC 11/02/19 Reported Glimepiride 1 Mg Tablet 1 Tab PO DAILY 11/02/19 Reported Hydrocodone-Apap 5-325 (Hydrocodone Bit/Acetaminophen) 1 Tab Tablet 1 Tab PO PRN Q6HRS PRN 11/02/19 Reported Lisinopril 10 Mg Tablet 1 Tab PO DAILY 11/02/19 Reported Acetaminophen 500 Mg Tablet 1 Tab PO BID 11/30/18 Reported Trazodone Hcl 50 Mg Tablet 0.5 Tab PO QHS 11/30/18 Reported Omeprazole 20 Mg Capsule.dr 1 Cap PO DAILY 11/30/18 Reported Novolog (Insulin Aspart) 100 Unit/1 Ml Cartridge 100 Unit SQ QIDACHS 11/30/18 Reported Naproxen 500 Mg Tablet 1 Tab PO PRN Q8HRS PRN 11/30/18 Reported Lidocaine PATCH (Lidocaine) 1 Each Adh..patch 1 Each TP DAILY 11/30/18 Reported REMOVE AFTER 12 HOURS Latanoprost 2.5 Ml Drops 1 Drop EACHEYE QHS 11/30/18 Reported Duoneb 0.5-3(2.5) Mg/3 Ml (Albuterol/Ipratropium) 3 Ml Ampul.neb 3 Ml NEB PRN Q4HRS PRN 11/30/18 Reported Imodium A-D (Loperamide HCl) 2 Mg Capsule 2 Mg PO PRN PRN 11/30/18 Reported Flonase Allergy Relief (Fluticasone Propionate) 9.9 Ml Nelson.susp 1 Sprays NS PRN Q12HRS PRN 11/30/18 Reported Coreg (Carvedilol) 3.125 Mg Tablet 3.125 Mg PO BIDWMEALS 11/30/18 Reported Chloraseptic (Phenol) 20 Ml Nelson 1 Nelson MM PRN Q6HRS PRN 11/30/18 Reported Calcium Citrate 250 Mg Tablet 500 Mg PO DAILY 11/30/18 Reported Tylenol (Acetaminophen) 325 Mg Tablet 2 Tab PO PRN Q6HRS PRN 11/30/18 Reported Atorvastatin Calcium 10 Mg Tablet 1 Tab PO QHS 11/30/18 Reported Proair Respiclick (Albuterol Sulfate) 90 Mcg Aer.pow.ba 1 Puff IH PRN Q6HRS PRN 01/18/17 Reported Alendronate Sodium 70 Mg Tablet 1 Tab PO WEEKLY 01/18/17 Reported Citalopram Hbr (Citalopram Hydrobromide) 10 Mg Tablet 1.5 Tab PO DAILY 01/18/17 Reported Cetirizine Hcl 10 Mg Tablet 1 Tab PO DAILY 01/18/17 Reported Guaifenesin 600 Mg Tablet.er 600 Mg PO PRN Q8HRS PRN 01/18/17 Reported Clopidogrel (Clopidogrel Bisulfate) 75 Mg Tablet 1 Tab PO DAILY 01/18/17 Reported Novolog Flexpen (Insulin Aspart) 100 Unit/1 Ml Insuln.pen 0-3 Unit SQ QIDACHS 10/25/19 Reported PATIENT SLIDING SCALE. 70-249= 0 UNITS. 250-400= 3UNITS. BEFORE MEALS AND AT BEDTIME GIVE 3 UNITS IF BLOOD SUGAR 250 OR ABOVE. Diclofenac Sodium 100 Gm Gel..gram. 1 Carlos TP DAILY 10/25/19 Reported D3-50 (Cholecalciferol (Vitamin D3)) 50,000 Unit Capsule 50,000 Unit PO DAILY 10/25/19 Reported Trazodone Hcl 50 Mg Tablet 0.5 Tab PO QHS 10/25/19 Reported Reglan (Metoclopramide Hcl) 5 Mg Tablet 5 Mg PO DAILY 10/25/19 Reported Protonix (Pantoprazole Sodium) 20 Mg Tablet.dr 1 Tab PO DAILY 10/25/19 Reported [place] 5-325 Tablet (Hydrocodone Bit/Acetaminophen) 1 Each Tablet 1 Tab PO Q4HRS 10/25/19 Reported Naproxen 500 Mg Tablet 1 Tab PO Q8HRS 10/25/19 Reported Lisinopril 2.5 Mg Tablet 1 Tab PO DAILY 10/25/19 Reported Lidocaine PATCH (Lidocaine) 1 Each Adh..patch 1 Each TP DAILY 10/25/19 Reported REMOVE AFTER 12 HOURS Lasix (Furosemide) 20 Mg Tablet 1 Tab PO DAILY 30 10/25/19 Reported Duoneb 0.5-3(2.5) Mg/3 Ml (Albuterol/Ipratropium) 3 Ml Ampul.neb 3 Ml NEB QID 10/25/19 Reported Imodium A-D (Loperamide HCl) 2 Mg Capsule 2 Mg PO DAILY 10/25/19 Reported Guaifenesin 400 Mg Tablet 400 Mg PO Q8HRS 10/25/19 Reported Coreg (Carvedilol) 3.125 Mg Tablet 3.125 Mg PO BID 10/25/19 Reported Clopidogrel (Clopidogrel Bisulfate) 75 Mg Tablet 75 Mg PO DAILY 10/25/19 Reported Citalopram Hbr (Citalopram Hydrobromide) 10 Mg Tablet 10 Mg PO DAILY 10/25/19 Reported Atorvastatin Calcium 10 Mg Tablet 10 Mg PO DAILY 10/25/19 Reported Proair Hfa Inhaler (Albuterol Sulfate) 8.5 Gm Hfa.aer.ad 1 Puff INH PRN Q6HRS 10/25/19 Reported Acetaminophen 500 Mg Tablet 1 Tab PO PRN Q6HRS 10/25/19 Reported Glimepiride 1 Mg Tablet 1 Mg PO DAILY 07/05/14 Reported Simvastatin 40 Mg Tablet 40 Mg PO HS 07/05/14 Reported Omeprazole 20 Mg Capsule.dr 20 Mg PO DAILY 07/05/14 Reported Januvia (Sitagliptin Phosphate) 100 Mg Tablet 100 Mg PO DAILY 07/05/14 Reported Comments Chest x-ray 624 improved ECHO <Conclusion> The left ventricular systolic function is severely impaired. The Ejection Fraction is 25%. Transmitral Doppler flow pattern is Grade II-pseudonormal filling dynamics. Mild to moderate mitral regurgitation. Moderate to severe tricuspid regurgitation with an estimated PAP of 83 mmHg. There is severe pulmonary hypertension. There is no evidence of significant pericardial effusion. Impression . IMPRESSION: 1. Acute respiratory failure, multifactorial in etiology. Extubated 11/04 eloped flash pulmonary edema post extubation from hypertensive urgency--improved 2. New-onset seizure.-- no further seizures reported 3. Acute diastolic congestive heart failure, rule out myocardial infarction, less likely pneumonia. 4. Abnormal chest x-ray. 5. Electrolyte abnormality. 6. Hypertensive urgency. 7. Diabetes mellitus. 8. COVID-19 Neg 9. Dysphagia--ongoing 10. cardiomyopathy EF 25% Plan . Discussed with team, okay to transfer CRYS BARAHONA MD Nov 19, 2019 08:47
[2019-11-19] MEDS: FUROSEMIDE 40 MG/4 ML VIAL. IVP SCH (09:00)
--- NOTE | 2019-11-19 09:32 | PDOC ---
Subjective: Subjective: "I ate every bit of my pancakes." Objective: Objective: D/w staff - ate mashed potatoes x 2 yesterday, pancakes this morning. Pulled IV yesterday. Plan is to DC to rehab today. Vital Signs: Vital Signs Date Time Temp Pulse Resp B/P (MAP) Pulse Ox O2 Delivery O2 Flow Rate FiO2 11/19/19 08:18 73 137/66 11/19/19 07:00 97.8 18 99 Nasal Cannula 3.0 97.8 Labs: Laboratory Tests Test 11/18/19 11:23 11/18/19 18:06 11/18/19 23:17 11/19/19 05:46 Glucose (Fingerstick) 216 mg/dL (70-99) 195 mg/dL (70-99) 116 mg/dL (70-99) 136 mg/dL (70-99) PE: GEN: NAD LUNGS: clear, NC 3L HEART: RRR ABD: S/ND/NT NEURO/PSYCH: A & O 3 - more alert, pleasant today A/P: Dysphagia - tolerating dysphagia diet Anemia, B12 deficiency - stable -- Now eating. Doesn't want PEG. DC per primary on B12 and PPI. Justicifation of Admission Dx: Justifications for Admission: Justification of Admission Dx: Yes Respiratory Failure: Mechanical Ventilation Altered Mental Status: Altered Mental Status MARKOS PATINO Nov 19, 2019 09:32
[2019-11-19] MEDS ORDERED: HYDR-2869 PO (09:38)
[2019-11-19] MEDS ORDERED: POTA20TA40 PO (09:38)
[2019-11-19] MEDS ORDERED: FURO40TA4 PO (09:38)
[2019-11-19] MEDS ORDERED: LEVE500T21 PO (09:38)
[2019-11-19] MEDS ORDERED: METO50TA6 PO (09:38)
[2019-11-19] MEDS ORDERED: LACT1POW11 PO (09:38)
[2019-11-19] MEDS ORDERED: SACU1TAB PO (09:38)
--- NOTE | 2019-11-19 09:41 | SNU/HH DC ---
DISCHARGE ORDERS DISCHARGE INFORMATION: DISCHARGE DATE: Nov 19, 2019 FINAL DIAGNOSIS new onset seizures acute hypoxic respiratory failure aspiration pneumonia Acute kidney injury CONDITION ON DISCHARGE: Stable CODE STATUS: Code Status: Full [facility]: SNF STAY <30 DAYS: Yes POST DISCHARGE ORDERS: ACTIVITY ORDERS: Activity as tolerated WEIGHT BEARING STATUS: No restrictions BATHING ORDERS: No Tub Bath until see DIET AFTER DISCHARGE: ADA WOUND/INCISION CARE: Ice to area for comfort TREATMENT/EQUIPMENT ORDERS: Physical Therapy For: Evalulation/Treatment Occupational Therapy For: Evaluation/Treatment DISCHARGE MEDICATIONS: Home Meds Active Scripts Lactobacillus Rhamnosus GG (Bharatisabelstacy Kidkimberlyn) 1 Each Powd.pack, 1 PACKET PO BID for antibiotics for 30 Days, #60 PACKET 0 Refills Prov:FINESSE GEORGES MD 11/19/19 Levetiracetam (LEVETIRACETAM) 500 Mg Tab.er.24h, 1 TAB PO BID for seizure for 30 Days, #60 TAB 0 Refills Prov:FINESSE GEORGES MD 11/19/19 Sacubitril/Valsartan (Entresto 24 mg-26 mg Tablet) 1 Each Tablet, 1 EACH PO BID for chf for 30 Days, #60 TAB Prov:FINESSE GEORGES MD 11/19/19 Furosemide (FUROSEMIDE) 40 Mg Tablet, 1 TAB PO DAILY for chf for 30 Days, #30 TAB 5 Refills Prov:FINESSE GEORGES MD 11/19/19 Potassium Bicarbonate/Cit Ac (EFFER-K 20 MEQ TABLET EFF) 20 Meq Tablet.eff, 1 TAB PO TID for hypokalemia for 30 Days, #90 TAB 0 Refills Prov:FINESSE GEORGES MD 11/19/19 Hydralazine Hcl (HYDRALAZINE HCL) 50 Mg Tablet, 1 TAB PO TID for htn for 30 Days, #90 TAB 5 Refills Prov:FINESSE GEORGES MD 11/19/19 Metoprolol Tartrate (METOPROLOL TARTRATE) 50 Mg Tablet, 1 TAB PO BID for htn for 30 Days, #60 TAB 5 Refills Prov:FINESSE GEORGES MD 11/19/19 Reported Medications Sitagliptin Phosphate (JANUVIA) 100 Mg Tablet, 1 TAB PO DAILY for DM, #30 TAB 5 Refills 11/02/19 Pantoprazole Sodium (PANTOPRAZOLE SODIUM ) 40 Mg Tablet.dr, 20 MG PO DAILYAC for GERD, TAB 11/02/19 Glimepiride (GLIMEPIRIDE) 1 Mg Tablet, 1 TAB PO DAILY for DM, #30 TAB 5 Refills 11/02/19 Hydrocodone Bit/Acetaminophen (HYDROCODONE-APAP 5-325 ) 1 Tab Tablet, 1 TAB PO PRN Q6HRS PRN for PAIN, TAB 0 Refills 11/02/19 Acetaminophen (ACETAMINOPHEN) 500 Mg Tablet, 1 TAB PO BID for PAIN, #60 TAB 1 Refill 11/30/18 Trazodone Hcl (TRAZODONE HCL) 50 Mg Tablet, 0.5 TAB PO QHS for INSOMNIA, #30 TAB 1 Refill 11/30/18 Insulin Aspart (NOVOLOG) 100 Unit/1 Ml Cartridge, 100 UNIT SQ QIDACHS for DIABETES/PER SLIDING SCALE, EACH 11/30/18 Lidocaine (Lidocaine PATCH ) 1 Each Adh..patch, 1 EACH TP DAILY for FOR LOCAL PAIN, PATCH REMOVE AFTER 12 HOURS 11/30/18 Latanoprost (LATANOPROST) 2.5 Ml Drops, 1 DROP EACHEYE QHS for GLAUCOMA, #7.5 ML 3 Refills 11/30/18 Ipratropium/Albuterol Sulfate (DUONEB 0.5-3(2.5) MG/3 ML) 3 Ml Ampul.neb, 3 ML NEB PRN Q4HRS PRN for SHORTNESS OF BREATH, EACH 11/30/18 Loperamide HCl (Imodium A-D) 2 Mg Capsule, 2 MG PO PRN PRN for DIARRHEA, CAP 11/30/18 Fluticasone Propionate (Flonase Allergy Relief) 9.9 Ml [place].susp, 1 SPRAYS NS PRN Q12HRS PRN for ALLERGIES, BOTTLE 11/30/18 Phenol (Chloraseptic) 20 Ml [place], 1 SPRAY MM PRN Q6HRS PRN for SORE THROAT, SPRAY 11/30/18 Calcium Citrate (CALCIUM CITRATE) 250 Mg Tablet, 500 MG PO DAILY for SUPPLEMENT, TAB 11/30/18 Acetaminophen (TYLENOL) 325 Mg Tablet, 2 TAB PO PRN Q6HRS PRN for PAIN, #30 TAB 11/30/18 Atorvastatin Calcium (ATORVASTATIN CALCIUM) 10 Mg Tablet, 1 TAB PO QHS for HYPERLIPIDEMIA, #30 TAB 5 Refills 11/30/18 Albuterol Sulfate (Proair Respiclick) 90 Mcg Aer.pow.ba, 1 PUFF IH PRN Q6HRS PRN for SHORTNESS OF BREATH, INHALER 01/18/17 Alendronate Sodium (ALENDRONATE SODIUM) 70 Mg Tablet, 1 TAB PO WEEKLY, #4 TAB 3 Refills 01/18/17 Citalopram Hydrobromide (CITALOPRAM HBR) 10 Mg Tablet, 1.5 TAB PO DAILY for FOR DEPRESSION, #30 TAB 3 Refills 01/18/17 Cetirizine Hcl (CETIRIZINE HCL) 10 Mg Tablet, 1 TAB PO DAILY, #30 TAB 5 Refills 01/18/17 Guaifenesin (GUAIFENESIN) 600 Mg Tablet.er, 600 MG PO PRN Q8HRS PRN for ALLERGIES, TAB.SR 01/18/17 Clopidogrel Bisulfate (CLOPIDOGREL) 75 Mg Tablet, 1 TAB PO DAILY, #90 TAB 1 Refill 01/18/17 Discontinued Reported Medications Lisinopril (LISINOPRIL) 10 Mg Tablet, 1 TAB PO DAILY for HTN, #30 TAB 5 Refills 11/02/19 Omeprazole (OMEPRAZOLE) 20 Mg Capsule.dr, 1 CAP PO DAILY for GERD, #30 CAP 5 Refills 11/30/18 Naproxen (NAPROXEN) 500 Mg Tablet, 1 TAB PO PRN Q8HRS PRN for PAIN, #60 TAB 1 Refill 11/30/18 Carvedilol (COREG ) 3.125 Mg Tablet, 3.125 MG PO BIDWMEALS for CARDIAC, TAB 11/30/18 FINESSE GEORGES MD Nov 19, 2019 09:41
[2019-11-19] MEDS: AMINO AC 3%/ELECTROLYTE/GLYCER 1,000 ML IV SCH (09:45)
--- NOTE | 2019-11-19 10:15 | PDOC ---
PROGRESS NOTES Assessment Hallucinations Pre-existing dementia, keep in mind the possibility of PRES and side effects of levetiracetam Seizure, no evidence of recurrence Possible posterior reversible encephalopathy syndrome, no evidence of this clinically now Having a cardiac catheterization today (11/07) Medical issues: anemia, aspiration pneumonia, resolved respiratory failure, severe hypertension, hypokalemia (resolved), elevated troponin, elevated BNP, heart failure, ejection fraction 25%, paroxysmal torsades, sinus bradycardia, anemia, peripheral artery disease, pulmonary hypertension She refused PEG Plan Levetiracetam, consider taper off after 3-6 months Treatment of medical problems. Going to [facility] Follow-up with me as needed Subjective No complaints, denies pain Objective Vital Signs Date Time Temp Pulse Resp B/P (MAP) Pulse Ox O2 Delivery O2 Flow Rate FiO2 11/19/19 08:18 73 137/66 11/19/19 07:00 97.8 18 99 Nasal Cannula 3.0 97.8 Intake and Output 11/19/19 07:00 Intake Total 300 ml Output Total 1650 ml Balance -1350 ml Intake Oral 300 ml Output Urine Total 1650 ml PHYSICAL EXAM Alert, tells me her name and that she's in the hospital, does not know the date PERRL. EOMI. CN: no focal findings. Muscle tone: normal. Muscle strength: 4/5 DTR: 2+ Plantar reflex: flexor Gait: not examined in bed. Sensory exam: no abnormal findings. No cerebellar signs elicited. Review of Relevant I have reviewed the following items regina (where applicable) has been applied. Labs Laboratory Tests Test 11/17/19 12:08 11/17/19 17:32 11/17/19 23:14 11/18/19 05:14 Glucose (Fingerstick) 228 mg/dL (70-99) 163 mg/dL (70-99) 156 mg/dL (70-99) Sodium Level 140 mmol/L (136-145) Potassium Level 3.9 mmol/L (3.5-5.1) Chloride Level 102 mmol/L (98-107) Carbon Dioxide Level 32 mmol/L (21-32) Anion Gap 6 (6-14) Blood Urea Nitrogen 30 mg/dL (7-20) Creatinine 1.2 mg/dL (0.6-1.0) Estimated GFR (Cockcroft-Gault) 43.2 Glucose Level 178 mg/dL (70-99) Calcium Level 8.4 mg/dL (8.5-10.1) Test 11/18/19 11:23 11/18/19 18:06 11/18/19 23:17 11/19/19 05:46 Glucose (Fingerstick) 216 mg/dL (70-99) 195 mg/dL (70-99) 116 mg/dL (70-99) 136 mg/dL (70-99) Laboratory Tests Test 11/18/19 11:23 11/18/19 18:06 11/18/19 23:17 11/19/19 05:46 Glucose (Fingerstick) 216 mg/dL (70-99) 195 mg/dL (70-99) 116 mg/dL (70-99) 136 mg/dL (70-99) Medications Current Medications Fentanyl Citrate 30 ml @ 0 mls/hr CONT PRN IV SEE PROTOCOL; Start 11/02/19 at 02:45; Status Cancel Propofol 100 ml @ 0 mls/hr CONT PRN IV SEE PROTOCOL; Start 11/02/19 at 02:45; Status Cancel Fentanyl Citrate (Fentanyl 2ml Vial) 25 mcg PRN Q1HR PRN IV SEE COMMENTS; Start 11/02/19 at 02:45; Status Cancel Fentanyl Citrate (Fentanyl 2ml Vial) 50 mcg PRN Q1HR PRN IV SEE COMMENTS; Start 11/02/19 at 02:45; Status Cancel Chlorhexidine Gluconate (Peridex) 15 ml BID MM ; Start 11/02/19 at 09:00; Status Cancel Morphine Sulfate (Morphine Sulfate) 2 mg PRN Q1HR PRN IV SEE COMMENTS.; Start 11/02/19 at 02:45; Status Cancel Morphine Sulfate (Morphine Sulfate) 4 mg PRN Q1HR PRN IV SEE COMMENTS.; Start 11/02/19 at 02:45; Status Cancel Midazolam HCl 100 ml @ 0 mls/hr CONT PRN IV SEE PROTOCOL; Start 11/02/19 at 02:45; Status Cancel Diphenhydramine HCl (Benadryl) 25 mg PRN Q15MIN PRN IVP EPS Symptoms; Start 11/02/19 at 02:45; Status Cancel Nicardipine HCl 50 mg/Sodium Chloride 250 ml @ 25 mls/hr CONT PRN IV SEE I/O RECORD Last administered on 11/02/19at 16:45; Start 11/02/19 at 03:15 Propofol 100 ml @ As Directed STK-MED ONCE IV ; Start 11/02/19 at 02:49; Stop 11/02/19 at 03:22; Status DC Propofol 100 ml @ 0 mls/hr CONT PRN IV SEE PROTOCOL Last administered on 11/03/19at 11:18; Start 11/02/19 at 03:30; Stop 11/03/19 at 13:54; Status DC Fentanyl Citrate (Fentanyl 2ml Vial) 25 mcg PRN Q1HR PRN IV SEE COMMENTS; Start 11/02/19 at 03:30; Stop 11/06/19 at 10:08; Status DC Fentanyl Citrate (Fentanyl 2ml Vial) 50 mcg PRN Q1HR PRN IV SEE COMMENTS; Start 11/02/19 at 03:30; Stop 11/06/19 at 10:08; Status DC Chlorhexidine Gluconate (Peridex) 15 ml BID MM Last administered on 11/05/19at 08:54; Start 11/02/19 at 09:00; Stop 11/06/19 at 10:08; Status DC Famotidine (Pepcid Vial) 20 mg DAILY IVP Last administered on 11/07/19at 08:39; Start 11/02/19 at 09:00; Stop 11/08/19 at 09:56; Status DC Morphine Sulfate (Morphine Sulfate) 2 mg PRN Q1HR PRN IV SEE COMMENTS. Last administered on 11/04/19at 17:55; Start 11/02/19 at 03:30; Stop 11/15/19 at 13:58; Status DC Morphine Sulfate (Morphine Sulfate) 4 mg PRN Q1HR PRN IV SEE COMMENTS. Last administered on 11/07/19at 05:18; Start 11/02/19 at 03:30; Stop 11/15/19 at 13:59; Status DC Potassium Bicarbonate (Potassium Effervescent Tablet) 40 meq 1X ONCE PEG Last administered on 11/02/19at 08:38; Start 11/02/19 at 07:30; Stop 11/02/19 at 07:31; Status DC Potassium Bicarbonate (Potassium Effervescent Tablet) 40 meq 1X ONCE PEG Last administered on 11/02/19at 10:02; Start 11/02/19 at 08:00; Stop 11/02/19 at 08:01; Status DC Potassium Bicarbonate (Potassium Effervescent Tablet) 40 meq 1X ONCE PEG Last administered on 11/02/19 10:41; Start 11/02/19 at 09:00; Stop 11/02/19 at 09:01 ; Status DC Magnesium Sulfate 50 ml @ 25 mls/hr 1X ONCE IV Last administered on 11/02/19 08:37; Start 11/02/19 at 07:30; Stop 11/02/19 at 09:29; Status DC Famotidine (Pepcid Vial) 20 mg DAILY IVP ; Start 11/02/19 at 09:00; Status UNV Ceftriaxone Sodium (Rocephin) 1 gm Q24H IVP Last administered on 11/04/19 08:46; Start 11/02/19 at 09:00; Stop 11/04/19 at 15:04; Status DC Levetiracetam 1000 mg/Dextrose 110 ml @ 440 mls/hr Q12HR IV Last administered on 11/03/19 09:13; Start 11/02/19 at 11:00; Stop 11/03/19 at 09:32; Status DC Acetaminophen (Tylenol) 650 mg PRN Q6HRS PRN PO PAIN Last administered on 11/16/19 23:48; Start 11/02/19 at 10:15 Atorvastatin Calcium (Lipitor) 10 mg QHS PO Last administered on 11/18/19 21:01; Start 11/02/19 at 21:00 Carvedilol (Coreg) 3.125 mg BIDWMEALS PO Last administered on 11/03/19 08:02; Start 11/02/19 at 11:00; Stop 11/07/19 at 12:02; Status DC Cetirizine HCl (ZyrTEC) 10 mg DAILY PO Last administered on 11/19/19 08:18; Start 11/02/19 at 11:00 Citalopram Hydrobromide (CeleXA) 15 mg DAILY PO Last administered on 11/03/19 09:14; Start 11/02/19 at 11:00; Stop 11/03/19 at 13:50; Status DC Clopidogrel Bisulfate (Plavix) 75 mg DAILY PO Last administered on 6/23/20at 08:53; Start 11/02/19 at 11:00; Stop 11/05/19 at 15:30; Status DC Diclofenac Sodium (Voltaren) 1 carlos BID PRN TP BREAKTHROUGH PAIN; Start 11/02/19 at 10:15 Furosemide (Lasix) 20 mg QEVNG PO Last administered on 11/04/19at 17:54; Start 11/02/19 at 18:00; Stop 11/07/19 at 11:59; Status DC Furosemide (Lasix) 40 mg QAM PO Last administered on 11/05/19at 08:54; Start 11/02/19 at 11:00; Stop 11/07/19 at 11:59; Status DC Albuterol Sulfate (Ventolin Neb Soln) 2.5 mg PRN Q4HRS PRN NEB SHORTNESS OF BREATH Last administered on 11/07/19at 20:16; Start 11/02/19 at 10:30 Latanoprost (Xalatan) 1 drop QHS OU Last administered on 11/18/19at 21:00; Start 11/02/19 at 21:00 Lidocaine (Lidoderm) 1 patch PRN DAILY PRN TP PAIN; Start 11/02/19 at 09:00 Pantoprazole Sodium (Protonix) 20 mg DAILYAC PO ; Start 11/03/19 at 07:30; Status UNV Phenol (Chloraseptic) 1 spray PRN Q6HRS PRN MM SORE THROAT; Start 11/02/19 at 10:15 Piperacillin Sod/ Tazobactam Sod 3.375 gm/Sodium Chloride 50 ml @ 100 mls/hr Q6HRS IV Last administered on 11/18/19at 11:27; Start 11/02/19 at 11:00 Vancomycin HCl (Vanco Per Pharmacy) 1 each PRN DAILY PRN MC SEE COMMENTS Last administered on 11/17/19at 14:01; Start 11/02/19 at 10:30 Vancomycin HCl 1 gm/Sodium Chloride 250 ml @ 250 mls/hr Q24H IV Last administered on 11/03/19at 22:57; Start 11/02/19 at 22:00; Stop 11/04/19 at 07:00; Status DC Vancomycin HCl (Vancomycin Trough Level) 1 each 1X ONCE MC Last administered on 11/03/19at 21:30; Start 11/03/19 at 21:30; Stop 11/03/19 at 21:31; Status DC Levetiracetam 500 mg/Dextrose 105 ml @ 420 mls/hr Q12HR IV Last administered on 11/07/19at 08:38; Start 11/03/19 at 21:00; Stop 11/07/19 at 13:16; Status DC Magnesium Sulfate 50 ml @ 25 mls/hr 1X ONCE IV Last administered on 11/03/19at 13:33; Start 11/03/19 at 12:00; Stop 11/03/19 at 13:59; Status DC Sertraline HCl (Zoloft) 50 mg DAILY PO Last administered on 11/19/19at 08:17; Start 11/04/19 at 09:00 Losartan Potassium (Cozaar) 25 mg DAILY NG Last administered on 11/05/19at 08:54; Start 11/03/19 at 14:00; Stop 11/05/19 at 09:40; Status DC Dexmedetomidine HCl 400 mcg/ Sodium Chloride 100 ml @ 0 mls/hr CONT PRN IV PER PROTOCOL Last administered on 11/05/19at 02:05; Start 11/03/19 at 14:00; Stop 11/06/19 at 10:08; Status DC Sodium Chloride 500 ml @ 500 mls/hr 1X PRN PRN IV SEE COMMENTS; Start 11/03/19 at 14:00 Atropine Sulfate (ATROPINE 0.5mg SYRINGE) 0.5 mg PRN Q5MIN PRN IV SEE COMMENTS; Start 11/03/19 at 14:00; Stop 11/07/19 at 12:28; Status DC Vancomycin HCl 1 gm/Sodium Chloride 250 ml @ 250 mls/hr Q18H IV Last administered on 11/11/19at 10:51; Start 11/04/19 at 17:00; Stop 11/12/19 at 06:10; Status DC Vancomycin HCl (Vancomycin Trough Level) 1 each 1X ONCE MC Last administered on 11/06/19at 04:30; Start 11/06/19 at 04:30; Stop 11/06/19 at 04:31; Status DC Losartan Potassium (Cozaar) 50 mg DAILY NG Last administered on 11/08/19at 11:05; Start 11/05/19 at 09:45; Stop 11/08/19 at 14:57; Status DC Epinephrine (S2 Racepinephrine) 0.5 ml 1X ONCE NEB Last administered on 11/05/19at 12:00; Start 11/05/19 at 12:00; Stop 11/05/19 at 12:01; Status DC Methylprednisolone Sodium Succinate (SOLU-Medrol 125MG VIAL) 100 mg 1X ONCE IV Last administered on 11/05/19at 12:15; Start 11/05/19 at 12:00; Stop 11/05/19 at 12:01; Status DC Furosemide (Lasix) 20 mg 1X STAT IVP Last administered on 11/05/19at 12:14; Start 11/05/19 at 12:08; Stop 11/05/19 at 12:12; Status DC Furosemide (Lasix) 20 mg 1X ONCE IVP Last administered on 11/05/19at 14:26; Start 11/05/19 at 14:15; Stop 11/05/19 at 14:16; Status DC Clopidogrel Bisulfate (Plavix) 75 mg DAILY PO Last administered on 11/19/19at 08:18; Start 11/07/19 at 11:00 Metoprolol Tartrate (Lopressor Vial) 5 mg ONCE ONCE IVP Last administered on 11/05/19at 23:56; Start 11/06/19 at 00:00; Stop 11/06/19 at 00:01; Status DC Potassium Chloride (Klor-Con) 40 meq 1X PRN PRN PO PER PROTOCOL; Start 11/05/19 at 23:45 Potassium Bicarbonate (Potassium Effervescent Tablet) 40 meq 1X PRN PRN PO PER PROTOCOL; Start 11/05/19 at 23:45 Potassium Chloride/Water 100 ml @ 100 mls/hr PRN Q1HR PRN IV PER PROTOCOL Last administered on 11/06/19at 06:03; Start 11/05/19 at 23:45; Stop 11/06/19 at 06:11; Status DC Potassium Chloride/Water 100 ml @ 100 mls/hr PRN Q1HR PRN IV PER PROTOCOL; Start 11/05/19 at 23:45 Potassium Chloride (Klor-Con) 40 meq PRN Q2HRS PRN PO PER PROTOCOL; Start 11/05/19 at 23:45 Potassium Chloride/Water 100 ml @ 100 mls/hr PRN Q1HR PRN IV PER PROTOCOL; Start 11/05/19 at 23:45 Potassium Chloride/Water 100 ml @ 100 mls/hr PRN Q1HR PRN IV PER PROTOCOL; Start 11/05/19 at 23:45; Stop 11/06/19 at 07:44; Status DC Potassium Chloride (Klor-Con) 40 meq PRN Q2HRS PRN PO PER PROTOCOL; Start 11/05/19 at 23:45 Potassium Chloride/Water 100 ml @ 100 mls/hr PRN Q1HR PRN IV PER PROTOCOL; Start 11/05/19 at 23:45 Potassium Chloride/Water 100 ml @ 100 mls/hr PRN Q1HR PRN IV PER PROTOCOL; Start 11/06/19 at 00:01; Stop 11/06/19 at 07:44; Status DC Magnesium Sulfate 100 ml @ 50 mls/hr PRN DAILY PRN IV PER PROTOCOL; Start 10/14 09/01 at 00:00 Potassium Phos/ Sodium Phos (Phos-Nak) 1 pkt PRN BID PRN PO PER PROTOCOL; Start 11/06/19 at 09:00 Sodium Phosphate 40 mmol/Sodium Chloride 263.3333 ml @ 62.5 mls/hr 1X PRN PRN IV PER PROTOCOL; Start 11/05/19 at 23:45 Potassium Phosphate 13.6 mmol/Sodium Chloride 254.5333 ml @ 62.5 mls/hr PRN Q4HRS PRN IV PER PROTOCOL; Start 11/05/19 at 23:45 Magnesium Sulfate 50 ml @ 25 mls/hr 1X ONCE IV Last administered on 11/06/19at 00:31; Start 11/06/19 at 01:00; Stop 11/06/19 at 02:59; Status DC Metoprolol Tartrate (Lopressor Vial) 5 mg 1X ONCE IVP Last administered on 11/06/19at 01:52; Start 11/06/19 at 02:00; Stop 11/06/19 at 02:01; Status DC Miscellaneous (Lidoderm Patch Removal) 1 ea PRN QHS PRN MC SEE COMMENTS; Start 11/06/19 at 08:00 Metoprolol Tartrate (Lopressor Vial) 5 mg Q6HRS IVP Last administered on 11/07/19at 05:21; Start 11/06/19 at 12:00; Stop 11/07/19 at 11:59; Status DC Cyanocobalamin (Vitamin B-12) 1,000 mcg DAILY IM Last administered on 11/19/19 08:25; Start 11/06/19 at 14:30 Furosemide (Lasix) 40 mg 1X ONCE IVP Last administered on 11/06/19at 17:35; Start 11/06/19 at 17:30; Stop 11/06/19 at 17:31; Status DC Amino Acids/ Glycerin/ Electrolytes 1,000 ml @ 80 mls/hr [id number] IV Last administered on 11/18/19at 11:08; Start 11/07/19 at 10:15 Metoprolol Succinate (Toprol Xl) 50 mg DAILY PO Last administered on 11/13/19at 07:40; Start 11/08/19 at 09:00; Stop 11/13/19 at 11:49; Status DC Furosemide (Lasix) 40 mg DAILY PO Last administered on 11/13/19at 07:41; Start 11/08/19 at 09:00; Stop 11/13/19 at 08:19; Status DC Lactobacillus Rhamnosus (Culturelle) 1 cap BID PO Last administered on 11/19/19at 08:17; Start 11/07/19 at 21:00 Levetiracetam (Keppra) 500 mg BID PO Last administered on 11/19/19at 08:18; Start 11/07/19 at 21:00 Furosemide (Lasix) 40 mg 1X ONCE IVP Last administered on 11/07/19at 21:55; Start 11/07/19 at 21:45; Stop 11/07/19 at 21:46; Status DC Cyanocobalamin (Vitamin B-12) 1,000 mcg 1X ONCE IM ; Start 11/08/19 at 08:30; Stop 11/08/19 at 08:31; Status DC Potassium Chloride (Klor-Con) 40 meq 1X ONCE PO ; Start 11/08/19 at 09:30; Stop 11/08/19 at 09:31; Status Cancel Furosemide (Lasix) 40 mg 1X ONCE IVP Last administered on 11/08/19at 17:56; Start 11/08/19 at 09:30; Stop 11/08/19 at 09:33; Status DC Pantoprazole Sodium (Protonix) 40 mg DAILYAC PO Last administered on 11/13/19at 07:41; Start 11/09/19 at 07:30; Stop 11/13/19 at 10:25; Status DC Potassium Chloride (Klor-Con) 40 meq 1X ONCE PO Last administered on 11/08/19at 11:31; Start 11/08/19 at 10:45; Stop 11/08/19 at 10:46; Status DC Potassium Chloride (Klor-Con) 40 meq 1X ONCE PO Last administered on 11/08/19at 17:56; Start 11/08/19 at 12:30; Stop 11/08/19 at 12:31; Status DC Potassium Chloride (Klor-Con) 40 meq 1X ONCE PO ; Start 11/08/19 at 11:15; Stop 11/08/19 at 11:16; Status DC Sacubitril/ Valsartan (Entresto 24 Mg-26 Mg) 1 tab BID PO Last administered on 11/19/19at 08:17; Start 11/10/19 at 09:00 Labetalol HCl (Normodyne Iv Push) 20 mg PRN Q2HR PRN IVP HYPERTENSION Last administered on 11/13/19at 03:18; Start 11/11/19 at 00:30 Vancomycin HCl (Vancomycin Trough Level) 1 each 1X ONCE MC Last administered on 11/12/19at 04:30; Start 11/12/19 at 04:30; Stop 11/12/19 at 04:31; Status DC Prednisone (Prednisone) 40 mg 1X ONCE PO Last administered on 11/11/19at 18:01; Start 11/11/19 at 17:30; Stop 11/11/19 at 17:33; Status DC Prednisone (Prednisone) 40 mg 1X ONCE PO Last administered on 11/11/19at 23:25; Start 11/11/19 at 23:00; Stop 11/11/19 at 23:01; Status DC Prednisone (Prednisone) 40 mg 1X ONCE PO Last administered on 11/12/19at 06:10; Start 11/12/19 at 07:00; Stop 11/12/19 at 07:01; Status DC Vancomycin HCl (Vancomycin Random Level) 1 each 1X ONCE MC ; Start 11/13/19 at 05:00; Stop 11/13/19 at 05:43; Status DC Methylprednisolone Sodium Succinate (SOLU-Medrol 125MG VIAL) 125 mg 1X ONCE IV Last administered on 11/12/19at 12:07; Start 11/12/19 at 10:45; Stop 11/12/19 at 10:46; Status DC Diphenhydramine HCl (Benadryl) 25 mg 1X ONCE IVP Last administered on 11/12/19at 12:39; Start 11/12/19 at 10:45; Stop 11/12/19 at 10:46; Status DC Famotidine (Pepcid Vial) 20 mg 1X ONCE IVP Last administered on 11/12/19at 12:07; Start 11/12/19 at 10:45; Stop 11/12/19 at 10:46; Status DC Lidocaine HCl (Lidocaine 1% 20ml Vial) 20 ml STK-MED ONCE .ROUTE ; Start 11/12/19 at 12:42; Stop 11/12/19 at 12:43; Status DC Iodixanol (Visipaque 320) 100 ml STK-MED ONCE .ROUTE ; Start 11/12/19 at 12:43; Stop 11/12/19 at 12:43; Status DC Heparin Sodium/ Sodium Chloride 1,000 ml @ As Directed STK-MED ONCE .ROUTE ; Start 11/12/19 at 12:43; Stop 11/12/19 at 12:43; Status DC Fentanyl Citrate (Fentanyl 2ml Vial) 100 mcg STK-MED ONCE .ROUTE ; Start 11/12/19 at 12:44; Stop 11/12/19 at 12:44; Status DC Midazolam HCl (Versed) 2 mg STK-MED ONCE .ROUTE ; Start 11/12/19 at 12:44; Stop 11/12/19 at 12:45; Status DC Heparin Sodium (Porcine) (Heparin Sodium) 10,000 unit STK-MED ONCE .ROUTE ; Start 11/12/19 at 12:44; Stop 11/12/19 at 12:45; Status DC Verapamil HCl (Verapamil) 5 mg STK-MED ONCE .ROUTE ; Start 11/12/19 at 12:44; Stop 11/12/19 at 12:45; Status DC Nitroglycerin (Nitroglycerin) 200 mcg STK-MED ONCE .ROUTE ; Start 11/12/19 at 12:44; Stop 11/12/19 at 12:45; Status DC Nitroglycerin (Nitroglycerin) 200 mcg 1X ONCE IART Last administered on 11/12/19at 13:59; Start 11/12/19 at 13:45; Stop 11/12/19 at 13:49; Status DC Verapamil HCl (Verapamil) 2.5 mg 1X ONCE IART Last administered on 11/12/19at 13:59; Start 11/12/19 at 13:45; Stop 11/12/19 at 13:49; Status DC Heparin Sodium (Porcine) (Heparin Sodium) 2,500 unit 1X ONCE IART Last administered on 11/12/19at 13:58; Start 11/12/19 at 13:45; Stop 11/12/19 at 13:49; Status DC Heparin Sodium/ Sodium Chloride (HEPARIN for ARTERIAL LINE FLUSH) 1,000 unit 1X ONCE IART Last administered on 11/12/19at 13:57; Start 11/12/19 at 13:45; Stop 11/12/19 at 13:49; Status DC Heparin Sodium/ Sodium Chloride (HEPARIN for ARTERIAL LINE FLUSH) 1,000 unit 1X ONCE IART Last administered on 11/12/19at 13:57; Start 11/12/19 at 13:45; Stop 11/12/19 at 13:49; Status DC Fentanyl Citrate (Fentanyl 2ml Vial) 100 mcg 1X ONCE IV Last administered on 11/12/19at 14:00; Start 11/12/19 at 13:45; Stop 11/12/19 at 13:49; Status DC Iodixanol (Visipaque 320) 100 ml 1X ONCE IART Last administered on 11/12/19at 13:58; Start 11/12/19 at 13:45; Stop 11/12/19 at 13:50; Status DC Lidocaine HCl (Lidocaine 1% 20ml Vial) 20 ml 1X ONCE INJ Last administered on 11/12/19at 13:58; Start 11/12/19 at 13:45; Stop 11/12/19 at 13:49; Status DC Hydralazine HCl (Apresoline Inj) 10 mg PRN Q4HRS PRN IVP ELEVATED BP, SEE COMMENTS Last administered on 11/13/19at 14:59; Start 11/12/19 at 14:30 Furosemide (Lasix) 40 mg 1X ONCE IVP Last administered on 11/12/19at 16:22; Start 11/12/19 at 16:00; Stop 11/12/19 at 16:01; Status DC Vancomycin HCl (Vanco Per Pharmacy) 1 each 1X STAT MC ; Start 11/13/19 at 05:30; Stop 11/13/19 at 05:31; Status UNV Vancomycin HCl (Vancomycin Random Level) 1 each 1X ONCE MC ; Start 11/13/19 at 17:00; Stop 11/13/19 at 17:01; Status DC Furosemide (Lasix) 40 mg DAILY IVP Last administered on 11/18/19at 11:23; Start 11/13/19 at 09:00 Insulin Human Lispro (HumaLOG) 0-7 UNITS TIDWMEALS SQ ; Start 11/13/19 at 09:00; Stop 11/13/19 at 09:01; Status DC Dextrose (Dextrose 50%-Water Syringe) 12.5 gm PRN Q15MIN PRN IV SEE COMMENTS; Start 11/13/19 at 09:00 Insulin Human Lispro (HumaLOG) 0-7 UNITS Q6HRS SQ Last administered on 11/13/19at 09:56; Start 11/13/19 at 09:00; Stop 11/13/19 at 11:47; Status DC Lansoprazole (Prevacid) 30 mg DAILY PO Last administered on 11/19/19at 08:17; Start 11/14/19 at 09:00 Info (Icu Electrolyte Protocol) 1 ea CONT PRN PRN MC PER PROTOCOL; Start 11/13/19 at 11:00; Stop 11/13/19 at 10:49; Status DC Info (Non-Icu Electrolyte Protocol) 1 ea CONT PRN PRN MC SEE COMMENTS; Start 11/13/19 at 11:00 Potassium Chloride/Water 100 ml @ 100 mls/hr Q1H IV Last administered on 11/13/19at 14:59; Start 11/13/19 at 11:30; Stop 11/13/19 at 15:29; Status DC Insulin Human Lispro (HumaLOG) 0-9 UNITS Q6HRS SQ Last administered on 11/18/19at 18:11; Start 11/13/19 at 12:00 Metoprolol Tartrate (Lopressor) 50 mg BID PO Last administered on 11/19/19at 08:18; Start 11/13/19 at 21:00 Vancomycin HCl 1 gm/Sodium Chloride 250 ml @ 250 mls/hr Q48H IV Last administered on 11/17/19at 18:42; Start 11/13/19 at 19:00 Furosemide (Lasix) 40 mg 1X ONCE IVP Last administered on 11/14/19at 15:31; Start 11/14/19 at 15:00; Stop 11/14/19 at 15:01; Status DC Potassium Bicarbonate (Potassium Effervescent Tablet) 20 meq DAILY PEG Last administered on 11/16/19at 09:36; Start 11/15/19 at 09:00; Stop 11/17/19 at 08:11; Status DC Hydralazine HCl (Apresoline) 25 mg TID PO Last administered on 11/16/19at 09:26; Start 11/14/19 at 14:00; Stop 11/16/19 at 09:53; Status DC Hydralazine HCl (Apresoline) 50 mg TID PO Last administered on 11/19/19at 08:18; Start 11/16/19 at 14:00 Potassium Bicarbonate (Potassium Effervescent Tablet) 20 meq TID PEG Last administered on 11/19/19at 08:17; Start 11/17/19 at 09:00 Active Scripts Active Culturelle Kids (Lactobacillus Rhamnosus GG) 1 Each Powd.pack 1 Packet PO BID 30 Days Levetiracetam 500 Mg Tab.er.24h 1 Tab PO BID 30 Days Entresto 24 mg-26 mg Tablet (Sacubitril/Valsartan) 1 Each Tablet 1 Each PO BID 30 Days Furosemide 40 Mg Tablet 1 Tab PO DAILY 30 Days Effer-K 20 Meq Tablet Eff (Potassium Bicarbonate/Cit Ac) 20 Meq Tablet.eff 1 Tab PO TID 30 Days Hydralazine Hcl 50 Mg Tablet 1 Tab PO TID 30 Days Metoprolol Tartrate 50 Mg Tablet 1 Tab PO BID 30 Days Reported Januvia (Sitagliptin Phosphate) 100 Mg Tablet 1 Tab PO DAILY Pantoprazole Sodium (Pantoprazole Sodium) 40 Mg Tablet.dr 20 Mg PO DAILYAC Glimepiride 1 Mg Tablet 1 Tab PO DAILY Hydrocodone-Apap 5-325 (Hydrocodone Bit/Acetaminophen) 1 Tab Tablet 1 Tab PO PRN Q6HRS PRN Acetaminophen 500 Mg Tablet 1 Tab PO BID Trazodone Hcl 50 Mg Tablet 0.5 Tab PO QHS Novolog (Insulin Aspart) 100 Unit/1 Ml Cartridge 100 Unit SQ QIDACHS Lidocaine PATCH (Lidocaine) 1 Each Adh..patch 1 Each TP DAILY REMOVE AFTER 12 HOURS Latanoprost 2.5 Ml Drops 1 Drop EACHEYE QHS Duoneb 0.5-3(2.5) Mg/3 Ml (Albuterol/Ipratropium) 3 Ml Ampul.neb 3 Ml NEB PRN Q4HRS PRN Imodium A-D (Loperamide HCl) 2 Mg Capsule 2 Mg PO PRN PRN Flonase Allergy Relief (Fluticasone Propionate) 9.9 Ml [place].susp 1 Sprays NS PRN Q12HRS PRN Chloraseptic (Phenol) 20 Ml [place] 1 [place] MM PRN Q6HRS PRN Calcium Citrate 250 Mg Tablet 500 Mg PO DAILY Tylenol (Acetaminophen) 325 Mg Tablet 2 Tab PO PRN Q6HRS PRN Atorvastatin Calcium 10 Mg Tablet 1 Tab PO QHS Proair Respiclick (Albuterol Sulfate) 90 Mcg Aer.pow.ba 1 Puff IH PRN Q6HRS PRN Alendronate Sodium 70 Mg Tablet 1 Tab PO WEEKLY Citalopram Hbr (Citalopram Hydrobromide) 10 Mg Tablet 1.5 Tab PO DAILY Cetirizine Hcl 10 Mg Tablet 1 Tab PO DAILY Guaifenesin 600 Mg Tablet.er 600 Mg PO PRN Q8HRS PRN Clopidogrel (Clopidogrel Bisulfate) 75 Mg Tablet 1 Tab PO DAILY Novolog Flexpen (Insulin Aspart) 100 Unit/1 Ml Insuln.pen 0-3 Unit SQ QIDACHS PATIENT SLIDING SCALE. 70-249= 0 UNITS. 250-400= 3UNITS. BEFORE MEALS AND AT BEDTIME GIVE 3 UNITS IF BLOOD SUGAR 250 OR ABOVE. Diclofenac Sodium 100 Gm Gel..gram. 1 [place] TP DAILY D3-50 (Cholecalciferol (Vitamin D3)) 50,000 Unit Capsule 50,000 Unit PO DAILY Trazodone Hcl 50 Mg Tablet 0.5 Tab PO QHS Reglan (Metoclopramide Hcl) 5 Mg Tablet 5 Mg PO DAILY Protonix (Pantoprazole Sodium) 20 Mg Tablet.dr 1 Tab PO DAILY [place] 5-325 Tablet (Hydrocodone Bit/Acetaminophen) 1 Each Tablet 1 Tab PO Q4HRS Naproxen 500 Mg Tablet 1 Tab PO Q8HRS Lisinopril 2.5 Mg Tablet 1 Tab PO DAILY Lidocaine PATCH (Lidocaine) 1 Each Adh..patch 1 Each TP DAILY REMOVE AFTER 12 HOURS Lasix (Furosemide) 20 Mg Tablet 1 Tab PO DAILY 30 Days Duoneb 0.5-3(2.5) Mg/3 Ml (Albuterol/Ipratropium) 3 Ml Ampul.neb 3 Ml NEB QID Imodium A-D (Loperamide HCl) 2 Mg Capsule 2 Mg PO DAILY Guaifenesin 400 Mg Tablet 400 Mg PO Q8HRS Coreg (Carvedilol) 3.125 Mg Tablet 3.125 Mg PO BID Clopidogrel (Clopidogrel Bisulfate) 75 Mg Tablet 75 Mg PO DAILY Citalopram Hbr (Citalopram Hydrobromide) 10 Mg Tablet 10 Mg PO DAILY Atorvastatin Calcium 10 Mg Tablet 10 Mg PO DAILY Proair Hfa Inhaler (Albuterol Sulfate) 8.5 Gm Hfa.aer.ad 1 Puff INH PRN Q6HRS Acetaminophen 500 Mg Tablet 1 Tab PO PRN Q6HRS Glimepiride 1 Mg Tablet 1 Mg PO DAILY Simvastatin 40 Mg Tablet 40 Mg PO HS Omeprazole 20 Mg Capsule.dr 20 Mg PO DAILY Januvia (Sitagliptin Phosphate) 100 Mg Tablet 100 Mg PO DAILY Vitals/I & O Vital Sign - Last 24 Hours 11/18/19 11/18/19 11/18/19 11/18/19 11:07 11:11 11:12 11:12 Temp 97.7 97.7 Pulse 72 72 72 72 Resp 20 B/P (MAP) 153/70 (97) 153/70 153/70 153/70 Pulse Ox 98 O2 Delivery Nasal Cannula O2 Flow Rate 3.0 11/18/19 11/18/19 11/18/19 11/18/19 14:23 14:49 19:10 19:40 Temp 98.0 97.4 98.0 97.4 Pulse 72 77 78 Resp 20 20 B/P (MAP) 153/70 144/67 (92) 106/41 (62) Pulse Ox 100 98 O2 Delivery Nasal Cannula Nasal Cannula Nasal Cannula O2 Flow Rate 3.0 3.0 3.0 11/18/19 11/18/19 11/18/19 11/18/19 21:00 21:01 21:01 23:10 Temp 97.7 97.7 Pulse 78 78 78 75 Resp 18 B/P (MAP) 106/41 106/41 106/41 160/80 (106) Pulse Ox 97 O2 Delivery Nasal Cannula O2 Flow Rate 3.0 11/19/19 11/19/19 11/19/19 11/19/19 03:15 07:00 08:17 08:18 Temp 98.0 97.8 98.0 97.8 Pulse 80 73 73 73 Resp 18 18 B/P (MAP) 140/66 (90) 137/66 (89) 137/66 137/66 Pulse Ox 94 99 O2 Delivery Nasal Cannula Nasal Cannula O2 Flow Rate 3.0 3.0 11/19/19 08:18 Pulse 73 B/P (MAP) 137/66 Intake and Output 11/18/19 11/18/19 11/19/19 15:00 23:00 07:00 Intake Total 120 ml 60 ml 120 ml Output Total 1200 ml 450 ml Balance 120 ml -1140 ml -330 ml Justicifation of Admission Dx: Justifications for Admission: Justification of Admission Dx: Yes Respiratory Failure: Mechanical Ventilation Altered Mental Status: Altered Mental Status FERNANDO TOSCANO MD Nov 19, 2019 10:15
[2019-11-19 10:27] VITALS: BP 123/54
[2019-11-19] MEDS: VANCOMYCIN PER PHARMACY MC PRN (12:16)
--- NOTE | 2019-11-19 12:48 | NUR ---
Discharge Note: GUILLERMO JIMENEZ [address] Discharge instructions and discharge home medications reviewed with Angelito at [facility] and a copy given. All questions have been answered and understanding verbalized. The following instructions and handouts were given: Seizures Patient discharged to [facility] with assisted via bed. Report called to [facility].
--- NOTE | 2019-11-19 14:59 | PDOC ---
CARDIO Progress Notes Date and Time Date of Service 11/19/19 Time of Evaluation 1120 Subjective Subjective: No Chest Pain, No shortness of breath, No Palpitations Vitals Vitals Vital Signs Date Time Temp Pulse Resp B/P (MAP) Pulse Ox O2 Delivery O2 Flow Rate FiO2 11/19/19 10:27 98.1 75 18 123/54 (77) 93 Room Air 98.1 11/19/19 07:00 3.0 Weight Weight [ ] Input and Output Intake and Output Intake and Output 11/19/19 07:00 Intake Total 300 ml Output Total 1650 ml Balance -1350 ml Intake Oral 300 ml Output Urine Total 1650 ml Laboratory Labs Laboratory Tests Test 11/18/19 18:06 11/18/19 23:17 11/19/19 05:46 11/19/19 11:15 Glucose (Fingerstick) 195 mg/dL (70-99) 116 mg/dL (70-99) 136 mg/dL (70-99) 202 mg/dL (70-99) Physical Exam HEENT: Neck Supple W Full Motion Chest: Symmetric LUNGS: Other (diminished bases ) Heart: RRR (SR), murmurs (4/6 systolic murmur to LLS border) Abdomen: Soft N/T Extremities: No Edema, No Calf Tenderness Neurology: alert, follow commands Assessment Assessment 1. Accelerated hypertension; now controlled 2. New onset seizure disorder with encephalopathy: on keppra, continue treatment per neurology. 3. Acute respiratory failure, multifactorial: Improved, treat per pulmonary team. COVID test negative 4. Acute on chronic diastolic/systolic heart failure: appears compensated. LVEF 25% with severe pulmonary hypertension. 5. Mild troponin elevation: type 2. Cath without obstructive disease 6. Paroxysmal Torsades: No further episodes on telemetry. Continue beta- blockers. 7. Asymptomatic SB: lowest 50s. none further, no pauses 8. Normocytic anemia, s/p transfusion. 9. Protein calorie malnutrition ;patient refusing PEG Okay to discharge form a CV standpoint. Justicifation of Admission Dx: Justifications for Admission: Justification of Admission Dx: Yes Respiratory Failure: Mechanical Ventilation Altered Mental Status: Altered Mental Status GREGORIA GRAHAM APRN Nov 19, 2019 14:59
== END 2019-11-19 19:21 | DRG 208 ==
LOC: 1 WEST ICU 02:23 → 2 NORTH 11-06 14:31 → 2 SOUTH 11-13 16:19
PROVIDERS: ADMIT Internal Medicine; ATTEND Internal Medicine
PROC: 5A1945Z Respiratory Ventilation, 24-96 Consecutive Hours (ICD-10-PCS; principal; 2019-11-02)
PROC: 0BH17EZ Insertion of Endotracheal Airway into Trachea, Via Natural or Artificial Opening (ICD-10-PCS; 2019-11-02)
PROC: 5A09357 Assistance with Respiratory Ventilation, Less than 24 Consecutive Hours, Continuous Positive Airway Pressure (ICD-10-PCS; 2019-11-08)
PROC: 30233N1 Transfusion of Nonautologous Red Blood Cells into Peripheral Vein, Percutaneous Approach (ICD-10-PCS; 2019-11-08)
PROC: 5A09357 Assistance with Respiratory Ventilation, Less than 24 Consecutive Hours, Continuous Positive Airway Pressure (ICD-10-PCS; 2019-11-09)
PROC: 5A09357 Assistance with Respiratory Ventilation, Less than 24 Consecutive Hours, Continuous Positive Airway Pressure (ICD-10-PCS; 2019-11-10)
PROC: 5A09357 Assistance with Respiratory Ventilation, Less than 24 Consecutive Hours, Continuous Positive Airway Pressure (ICD-10-PCS; 2019-11-11)
PROC: 4A023N7 Measurement of Cardiac Sampling and Pressure, Left Heart, Percutaneous Approach (ICD-10-PCS; 2019-11-12)
PROC: B211YZZ Fluoroscopy of Multiple Coronary Arteries using Other Contrast (ICD-10-PCS; 2019-11-12)
DX: J69.0 Pneumonitis due to inhalation of food and vomit (principal); J96.00 Acute respiratory failure, unspecified whether with hypoxia or hypercapnia; I50.43 Acute on chronic combined systolic (congestive) and diastolic (congestive) heart failure; E43 Unspecified severe protein-calorie malnutrition; I67.83 Posterior reversible encephalopathy syndrome; G40.89 Other seizures; G93.40 Encephalopathy, unspecified; I13.0 Hypertensive heart and chronic kidney disease with heart failure and stage 1 through stage 4 chronic kidney disease, or unspecified chronic kidney disease; I24.8 Other forms of acute ischemic heart disease; I42.8 Other cardiomyopathies; J98.11 Atelectasis; N17.9 Acute kidney failure, unspecified; C50.919 Malignant neoplasm of unspecified site of unspecified female breast; D47.2 Monoclonal gammopathy; E11.22 Type 2 diabetes mellitus with diabetic chronic kidney disease; E11.51 Type 2 diabetes mellitus with diabetic peripheral angiopathy without gangrene; E53.8 Deficiency of other specified B group vitamins; E78.5 Hyperlipidemia, unspecified; E87.6 Hypokalemia; F03.90 Unspecified dementia, unspecified severity, without behavioral disturbance, psychotic disturbance, mood disturbance, and anxiety; F32.9 Major depressive disorder, single episode, unspecified; G89.4 Chronic pain syndrome; H40.9 Unspecified glaucoma; I08.1 Rheumatic disorders of both mitral and tricuspid valves; I16.0 Hypertensive urgency; I25.10 Atherosclerotic heart disease of native coronary artery without angina pectoris; I27.20 Pulmonary hypertension, unspecified; J44.9 Chronic obstructive pulmonary disease, unspecified; M81.0 Age-related osteoporosis without current pathological fracture; N14.1 Nephropathy induced by other drugs, medicaments and biological substances; N18.9 Chronic kidney disease, unspecified; R13.10 Dysphagia, unspecified; T50.8X5A Adverse effect of diagnostic agents, initial encounter; Z20.828 Contact with and (suspected) exposure to other viral communicable diseases; Z79.899 Other long term (current) drug therapy; Z83.3 Family history of diabetes mellitus; Z85.3 Personal history of malignant neoplasm of breast; Z90.11 Acquired absence of right breast and nipple; Z91.041 Radiographic dye allergy status; K21.9 Gastro-esophageal reflux disease without esophagitis
CPT/HCPCS: 36415; 36600; 70551; 71045; 74018; 80048; 80053; 80061; 80202; 82607; 82805; 82962; 83540; 83550; 83605; 83735; 83880; 84100; 84132; 84484; 85007; 85014; 85018; 85025; 85027; 85610; 86850; 86900; 86901; 86920; 87493; 93005; 93306; 93458; 94002; 94003; 94640; 94660; 94760; 95816; 99152; C1769; C1892; J0360; J0696; J1200; J1644; J1815; J1940; J1953; J2270; J2543; J2704; J2930; J3010; J3370; J3420; J3475; J3480; J3490; J7050; J7060; J7512; P9016; Q9967; 92526-GN; 92610-GN; 97530-GO; 97530-GP; 97535-GO; G0378; J7030; J7613; U0003-CS